=== PATIENT | male | born 1950 | race Caucasian/White ===

== ENCOUNTER 2021-07-04 11:18 | Outpatient (REF) | payer BC, SELFPAY ==
--- NOTE | ~2021-07-04 | US_ITS ---
EXAMINATION: US RETROPERITONEAL LIMITED (RENAL ONLY) CLINICAL INFORMATION: Urinary tract infection. COMPARISON: None TECHNIQUE: Real-time imaging of the kidneys. FINDINGS: RIGHT KIDNEY: 11.0 x 4.5 x 4.6 cm (SAG x AP x TRV). The kidney is normal in size, contour, and echogenicity. Renal cortical thickness is normal. No focal parenchymal lesions or hydronephrosis. There is upper pole 0.5 cm cyst on the lower pole 0.3 cm stone without obstruction LEFT KIDNEY: 11.3 x 5.6 x 5.3 cm (SAG x AP x TRV). The kidney is normal in size, contour, and echogenicity. Renal cortical thickness is normal. No hydronephrosis. There is upper pole 1.7 x 1.8 x 1.6 cm simple cyst and 0.3 cm calculus and 0.4 cm calculus in the interpolar area, 0.3 cm calculus in the lower pole and 0.5 cm in the upper pole US/US renal BI IMPRESSION: Bilateral renal cysts and nephrolithiasis no evidence of hydronephrosis
== END 2021-07-04 11:19 | disposition home or self-care (01) ==
LOC: HO.US 11:18
PROVIDERS: Visit Provider Emergency Medicine
DX: N39.0 Urinary tract infection, site not specified (principal)
CPT/HCPCS: 76775

== ENCOUNTER 2021-07-16 11:53 | Inpatient (IN) | payer MEDICARE, SELFPAY ==
[2021-07-16] VITALS (19 sets, daily range): BP systolic 84–115; BP diastolic 55–80; PULSE 59–93; RESP 16–32; TEMP 36.4–39.2; O2SAT 92–98; BMI 19.8
--- NOTE | ~2021-07-16 | XR_ITS ---
EXAMINATION: XR CHEST CLINICAL INFORMATION: Cough, fever COMPARISON: None TECHNIQUE: Frontal view of the chest was obtained. FINDINGS: Median sternotomy wires are intact. Normal heart size. Mild hypoinflation of the lungs. No focal consolidation. No pleural effusion or pneumothorax. No acute osseous abnormality. Degenerative changes of the bilateral shoulders and the spine. XR/XR chest 1V IMPRESSION: No acute disease within the chest. No focal consolidation.
--- NOTE | 2021-07-16 12:31 | PC.NURSE ---
patient alert to person only history of dementia, bus monitor nsr with frequent pvcs, pt hypotensive, per ems call came in for stroke symptoms, pt neuro exam- symmetrical smile, equil director treasurer upper extremity, lower extremity lift/hold, pt has chronic bean, cath, lungs have rhonchi throughout and diminished.
--- NOTE | 2021-07-16 12:43 | PC.NURSE ---
spoke w son, hx UTI/sepsis in March. provider notified.
--- NOTE | 2021-07-16 12:51 | ED_ITS ---
HPI - General Adult General Chief complaint: Altered Mental Status Stated complaint: FEVER,PRODUCTIVE COUGH Time Seen by Provider: 07/16/21 12:12 Source: patient Mode of arrival: EMS Limitations: other (Cognitive impairment) History of Present Illness HPI narrative: 70-year-old male coming from stay [facility] they will itch, with a past medical history of cognitive impairment, chronic urinary retention with chronic Arroyo catheterization, myasthenia gravis status post thymectomy, COPD, BPH, sepsis with hypoxic respiratory failure, acute kidney injury, and obstructive uropathy presents from [facility] for cough, fever, and not eating. Unclear how long these symptoms have been going on. The patient has a MOLST, and is DNR DNI. Related Data Home Medications Medication Instructions Recorded Confirmed albuterol sulfate 90 mcg/actuation 2 puff INHALATION Q4-6H PRN 07/16/21 07/16/21 aerosol inhaler aspirin 81 mg capsule 81 mg PO DAILY 07/16/21 07/16/21 atorvastatin 10 mg tablet 1 tab PO DAILY 07/16/21 07/16/21 cyanocobalamin (vitamin B-12) 1,000 mcg PO DAILY 07/16/21 07/16/21 1,000 mcg capsule donepezil 10 mg tablet 1 tab PO DAILY 07/16/21 07/16/21 gabapentin 300 mg capsule 1 cap PO BID 07/16/21 07/16/21 guaifenesin 600 mg tablet, 600 mg PO Q6H PRN 07/16/21 07/16/21 extended release 12 hr (Mucinex) melatonin 3 mg tablet 3 mg PO BEDTIME PRN 07/16/21 07/16/21 memantine 5 mg tablet 1 tab PO BID 07/16/21 07/16/21 midodrine 5 mg tablet 1 tab PO TID 07/16/21 07/16/21 multivitamin 1 tab PO DAILY 07/16/21 07/16/21 omeprazole 20 mg capsule,delayed 1 cap PO DAILY 07/16/21 07/16/21 release prednisone 10 mg tablet 1 tab PO DAILY 07/16/21 07/16/21 prednisone 5 mg tablet 1 tab PO DAILY@1700 07/16/21 07/16/21 risperidone 0.5 mg tablet 0.75 mg PO DAILY 07/16/21 07/16/21 (Risperdal) risperidone 1 mg tablet 1 tab PO BEDTIME 07/16/21 07/16/21 sennosides 8.6 mg-docusate sodium 1 tab-cap PO BID PRN 07/16/21 07/16/21 50 mg capsule (Senna Plus) sertraline 100 mg tablet 1 tab PO DAILY 07/16/21 07/16/21 sertraline 50 mg tablet 1 tab PO DAILY 07/16/21 07/16/21 tamsulosin 0.4 mg capsule 1 cap PO DAILY 07/16/21 07/16/21 Allergies Allergy/AdvReac Type Severity Reaction Status Date / Time bacitracin Allergy Unknown Verified 07/16/21 12:22 [From Neosporin ([id number])] iodine Allergy Unknown Verified 07/16/21 12:22 neomycin Allergy Unknown Verified 07/16/21 12:22 [From Neosporin ([id number])] polymyxin B Allergy Unknown Verified 07/16/21 12:22 [From Neosporin ([id number])] Review of Systems Review of Systems: Cough, fever, anorexia. Patient is a poor historian, unable to rule obtain review of systems. Patient does not endorse any pain like Neurologic: Reports confusion Psychiatric: Psychiatric: Reports confusion PMFSH Past Medical History Medical History BPH (benign prostatic hyperplasia) Compression fx, lumbar spine Compression fx, thoracic spine Constipation Dementia Dementia Depression GERD (gastroesophageal reflux disease) High cholesterol Myasthenia gravis Urinary retention Surgical History H/O thymectomy Social History Social History Alcohol intake: never Patient Tobacco Use Status: Never used Tobacco Smoked in Last 30 Days: Yes Use of substances other than those prescribed or required for medical reasons: No Advance Directives: No Advance Directives Information Provided: No Physical Exam ED Vital Signs: Vital Signs - 24 hr 07/16/21 12:12 07/16/21 12:22 07/16/21 12:52 Temperature 102.6 F H 99.9 F Pulse Rate 88 84 77 Pulse Rate [Left Apical] Respiratory Rate 29 H 32 H 28 H Blood Pressure 85/63 L 89/63 L 97/67 Pulse Oximetry 92 97 92 07/16/21 13:22 07/16/21 13:29 07/16/21 13:30 Temperature 99.1 F 99.1 F Pulse Rate 72 72 Pulse Rate [Left Apical] 79 Respiratory Rate 22 H 22 H Blood Pressure 93/66 87/58 L Pulse Oximetry 95 95 07/16/21 13:33 07/16/21 14:00 07/16/21 14:30 Temperature 99.1 F 98.6 F Pulse Rate 72 72 67 Pulse Rate [Left Apical] Respiratory Rate 17 22 H 22 H Blood Pressure 88/61 L 84/58 L Pulse Oximetry 95 95 07/16/21 15:00 07/16/21 15:30 07/16/21 16:36 Temperature 98.6 F 97.5 F 97.7 F Pulse Rate 72 67 62 Pulse Rate [Left Apical] Respiratory Rate 22 H 22 H 23 H Blood Pressure 88/59 L 93/64 97/67 Pulse Oximetry 95 95 95 07/16/21 17:00 07/16/21 17:34 Temperature 97.5 F 97.7 F Pulse Rate 65 59 Pulse Rate [Left Apical] Respiratory Rate 22 H 22 H Blood Pressure 92/64 98/67 Pulse Oximetry 96 97 BMI result Body Mass Index 19.8 Const General: alert, awake, acute distress moderate and respiratory and confusion Nutritional Appearance: cachectic Orientation/consciousness: oriented to person, oriented to place, No oriented to time and confusion HENMT Head: Yes normal to inspection, Yes normocephalic and Yes atraumatic Ears: hearing grossly normal bilaterally General nose exam: Normal external nose present Face and sinus: Yes normal facial exam Mouth: mucous membranes dry Throat: Yes posterior oropharynx normal Eyes Pupils: Equal, round and reactive pupils present EOM: EOMs intact bilaterally Neck Neck: Yes full ROM, Yes no meningeal signs, Yes trachea midline and Yes supple Resp Effort & Inspection: able to speak in complete sentences, Actively coughing, labored, respiratory distress and tachypneic Auscultation: crackles, rales and rhonchi throughout Cardio Rate: regular rate Rhythm: regular rhythm GI Inspection: Yes normal to inspection Palpation (GI): Soft to palpation, nontender, no guarding and not rigid Other: Arroyo in place Penis: normal penis Meatus: meatus normal and No Blood at meatus present Scrotum: scrotum normal Skin General skin exam: no rashes or lesions noted Neuro General: oriented to person, oriented to place, No oriented to time, no meningeal signs and confusion Cranial nerves: Yes Equal, round and reactive pupils present Psych Appearance: disheveled Affect: normal affect Attitude: cooperative Course Course Course Narrative: 70-year-old [facility] patient with past medical history of COPD, sepsis, myasthenia gravis, respiratory failure, acute kidney injury, and obstructive uropathy with chronic Arroyo presents for fever, cough and anorexia today. On exam, patient is hypotensive, 85/63, is tachypneic at 30, rectal temp is 102.6 degrees. Started sepsis bundle, lactic, blood culture, 30 milliliters/kilogram of fluids, started Zosyn and vanco, will get urine, labs, swab for COVID and flu. Giving Tylenol, nebulizer treatment. Second lactate ordered for 1455 Initial lactate is 2.2 VBG is within normal limits Reevaluation(s) Reevaluation #1: Patient's blood pressure is still 80s over 60s, map of [address] Berger looked at IVC with ultrasound, IVC is on. Will give 500 more cc of fluid. Patient did not have JVD on exam. Texted Dr. Lovett, fans clerk, he will come down and consult on patient. Dr Lovett did see patient, he is fluid responsive. BP npw 99/68. Bony felt pt appropriate for the floor Mustapha, son at bedside is HCP. HIs number is [phone] FINDINGS: Median sternotomy wires are intact. Normal heart size. Mild hypoinflation of the lungs. No focal consolidation. No pleural effusion or pneumothorax. No acute osseous abnormality. Degenerative changes of the bilateral shoulders and the spine. XR/XR chest 1V IMPRESSION: No acute disease within the chest. No focal consolidation. Medical Decision Making Lab Data Result diagrams: 07/16/21 12:53 07/16/21 12:53 Labs: Lab Results 07/16/21 07/16/21 07/16/21 Range/Units 12:20 12:20 12:53 WBC 10.6 (4.8-10.8) X10*3/uL RBC 3.87 L (4.60-5.80) X10*6/uL Hgb 12.6 L (14.0-18.0) g/dl Hct 37.6 L (42.0-52.0) % MCV 97.2 (80.0-98.0) fL MCH 32.6 (27.0-33.0) pg MCHC 33.5 (31.0-36.0) g/dl RDW 14.6 (11.0-16.0) % Plt Count 213 (160-400) X10*3/uL MPV 9.8 (9.4-12.4) fL Immature Gran % (Auto) 0.3 (0.0-0.4) % Neut % (Auto) 81.0 H (45-73) % Lymph % (Auto) 9.1 L (20-40) % [place] % (Auto) 9.3 (2-11) % Eos % (Auto) 0.0 (0-4) % Baso % (Auto) 0.3 (0-2) % Lymph # (Auto) 1.0 L (1.2-4.9) X10*3/uL [place] # (Auto) 1.0 (0.1-1.2) X10*3/uL Eos # (Auto) 0.0 (0.0-0.4) X10*3/uL Baso # (Auto) 0.0 (0.0-0.2) X10*3/uL Abs Immat Gran (auto) 0.03 (0.00-0.03) X10*3/uL Absolute Neuts (auto) 8.6 H (2.0-8.3) x10*3/uL Absolute Nucleated RBC 0.000 (0.0-0.012) X10*3/uL Nucleated RBC % (auto) 0.0 (0.0-0.2) /100WBC PT (9.9-13.0) SEC INR (0.9-1.1) APTT (24.1-38.0) SEC VBG pH (7.32-7.43) VBG pCO2 mmHg VBG pO2 mmHg VBG HCO3 (22-26) mmol/L VBG O2 Saturation % VBG Base Excess mmol/L Sodium (135-145) mmol/L Potassium (3.3-5.1) mmol/L Chloride (96-108) mmol/L Carbon Dioxide (22-29) mmol/L Anion Gap (12-20) BUN (9-16) mg/dL Creatinine (0.5-1.4) mg/dL Estim Creat Clear Calc Estimated GFR Random Glucose (60-115) mg/dL Lactic Acid (0.5-2.0) mmol/L Lactic Acid F/U @ 2Hr (0.5-2.0) mmol/L Calcium (8.4-10.2) mg/dL Total Bilirubin (0.0-1.0) mg/dL AST (5-37) U/L ALT (0-40) U/L Alkaline Phosphatase (39-117) U/L Total Protein (6.5-8.0) g/dL Albumin (3.5-5.0) g/dL Urine Color Urine Appearance Urine pH (5.0-8.0) Ur Specific [place] (1.005-1.025) Urine Protein (NEG-TRACE) MG/DL Urine Glucose (UA) (NEG) MG/DL Urine Ketones (NEG) MG/DL Urine Blood (NEG) Urine Nitrite (NEG) Ur Leukocyte Esterase (NEG) Urine RBC (0) /HPF Urine WBC (0-4) /HPF Ur Squamous Epith Cells /LPF Amorphous Sediment /LPF Urine Bacteria /LPF COVID-19 (FRANCY) Negative (Negative) COVID-19 Clin Com See Note Influenza Type A (SAVANA) Negative (Negative) Influenza Type B (SAVANA) Negative (Negative) Influenza A & B Note See Note 07/16/21 07/16/21 07/16/21 Range/Units 12:53 12:53 12:53 WBC (4.8-10.8) X10*3/uL RBC (4.60-5.80) X10*6/uL Hgb (14.0-18.0) g/dl Hct (42.0-52.0) % MCV (80.0-98.0) fL MCH (27.0-33.0) pg MCHC (31.0-36.0) g/dl RDW (11.0-16.0) % Plt Count (160-400) X10*3/uL MPV (9.4-12.4) fL Immature Gran % (Auto) (0.0-0.4) % Neut % (Auto) (45-73) % Lymph % (Auto) (20-40) % [place] % (Auto) (2-11) % Eos % (Auto) (0-4) % Baso % (Auto) (0-2) % Lymph # (Auto) (1.2-4.9) X10*3/uL [place] # (Auto) (0.1-1.2) X10*3/uL Eos # (Auto) (0.0-0.4) X10*3/uL Baso # (Auto) (0.0-0.2) X10*3/uL Abs Immat Gran (auto) (0.00-0.03) X10*3/uL Absolute Neuts (auto) (2.0-8.3) x10*3/uL Absolute Nucleated RBC (0.0-0.012) X10*3/uL Nucleated RBC % (auto) (0.0-0.2) /100WBC PT 14.1 H (9.9-13.0) SEC INR 1.2 H (0.9-1.1) APTT 38.7 H (24.1-38.0) SEC VBG pH (7.32-7.43) VBG pCO2 mmHg VBG pO2 mmHg VBG HCO3 (22-26) mmol/L VBG O2 Saturation % VBG Base Excess mmol/L Sodium 139 (135-145) mmol/L Potassium 3.6 (3.3-5.1) mmol/L Chloride 101 (96-108) mmol/L Carbon Dioxide 25 (22-29) mmol/L Anion Gap 17 (12-20) BUN 20 H (9-16) mg/dL Creatinine 0.97 (0.5-1.4) mg/dL Estim Creat Clear Calc 70.0 Estimated GFR > 60 Random Glucose 120 H (60-115) mg/dL Lactic Acid 2.2 H* (0.5-2.0) mmol/L Lactic Acid F/U @ 2Hr (0.5-2.0) mmol/L Calcium 8.8 (8.4-10.2) mg/dL Total Bilirubin 1.2 H (0.0-1.0) mg/dL AST 13 (5-37) U/L ALT 23 (0-40) U/L Alkaline Phosphatase 56 (39-117) U/L Total Protein 6.0 L (6.5-8.0) g/dL Albumin 3.4 L (3.5-5.0) g/dL Urine Color Urine Appearance Urine pH (5.0-8.0) Ur Specific [place] (1.005-1.025) Urine Protein (NEG-TRACE) MG/DL Urine Glucose (UA) (NEG) MG/DL Urine Ketones (NEG) MG/DL Urine Blood (NEG) Urine Nitrite (NEG) Ur Leukocyte Esterase (NEG) Urine RBC (0) /HPF Urine WBC (0-4) /HPF Ur Squamous Epith Cells /LPF Amorphous Sediment /LPF Urine Bacteria /LPF COVID-19 (FRANCY) (Negative) COVID-19 Clin Com Influenza Type A (SAVANA) (Negative) Influenza Type B (SAVANA) (Negative) Influenza A & B Note 07/16/21 07/16/21 07/16/21 Range/Units 13:27 13:39 15:08 WBC (4.8-10.8) X10*3/uL RBC (4.60-5.80) X10*6/uL Hgb (14.0-18.0) g/dl Hct (42.0-52.0) % MCV (80.0-98.0) fL MCH (27.0-33.0) pg MCHC (31.0-36.0) g/dl RDW (11.0-16.0) % Plt Count (160-400) X10*3/uL MPV (9.4-12.4) fL Immature Gran % (Auto) (0.0-0.4) % Neut % (Auto) (45-73) % Lymph % (Auto) (20-40) % [place] % (Auto) (2-11) % Eos % (Auto) (0-4) % Baso % (Auto) (0-2) % Lymph # (Auto) (1.2-4.9) X10*3/uL [place] # (Auto) (0.1-1.2) X10*3/uL Eos # (Auto) (0.0-0.4) X10*3/uL Baso # (Auto) (0.0-0.2) X10*3/uL Abs Immat Gran (auto) (0.00-0.03) X10*3/uL Absolute Neuts (auto) (2.0-8.3) x10*3/uL Absolute Nucleated RBC (0.0-0.012) X10*3/uL Nucleated RBC % (auto) (0.0-0.2) /100WBC PT (9.9-13.0) SEC INR (0.9-1.1) APTT (24.1-38.0) SEC VBG pH 7.44 H (7.32-7.43) VBG pCO2 32 mmHg VBG pO2 186 mmHg VBG HCO3 22 (22-26) mmol/L VBG O2 Saturation 99.0 % VBG Base Excess -0.8 mmol/L Sodium (135-145) mmol/L Potassium (3.3-5.1) mmol/L Chloride (96-108) mmol/L Carbon Dioxide (22-29) mmol/L Anion Gap (12-20) BUN (9-16) mg/dL Creatinine (0.5-1.4) mg/dL Estim Creat Clear Calc Estimated GFR Random Glucose (60-115) mg/dL Lactic Acid Cancelled (0.5-2.0) mmol/L Lactic Acid F/U @ 2Hr (0.5-2.0) mmol/L Calcium (8.4-10.2) mg/dL Total Bilirubin (0.0-1.0) mg/dL AST (5-37) U/L ALT (0-40) U/L Alkaline Phosphatase (39-117) U/L Total Protein (6.5-8.0) g/dL Albumin (3.5-5.0) g/dL Urine Color YELLOW Urine Appearance HAZY Urine pH 5.5 (5.0-8.0) Ur Specific [place] 1.020 (1.005-1.025) Urine Protein 1+ H (NEG-TRACE) MG/DL Urine Glucose (UA) NEG (NEG) MG/DL Urine Ketones NEG (NEG) MG/DL Urine Blood 2+ H (NEG) Urine Nitrite NEG (NEG) Ur Leukocyte Esterase 3+ H (NEG) Urine RBC 10-14 H (0) /HPF Urine WBC 30-49 H (0-4) /HPF Ur Squamous Epith Cells 1+ /LPF Amorphous Sediment 1+ /LPF Urine Bacteria 1+ /LPF COVID-19 (FRANCY) (Negative) COVID-19 Clin Com Influenza Type A (SAVANA) (Negative) Influenza Type B (SAVANA) (Negative) Influenza A & B Note 07/16/21 Range/Units 15:08 WBC (4.8-10.8) X10*3/uL RBC (4.60-5.80) X10*6/uL Hgb (14.0-18.0) g/dl Hct (42.0-52.0) % MCV (80.0-98.0) fL MCH (27.0-33.0) pg MCHC (31.0-36.0) g/dl RDW (11.0-16.0) % Plt Count (160-400) X10*3/uL MPV (9.4-12.4) fL Immature Gran % (Auto) (0.0-0.4) % Neut % (Auto) (45-73) % Lymph % (Auto) (20-40) % [place] % (Auto) (2-11) % Eos % (Auto) (0-4) % Baso % (Auto) (0-2) % Lymph # (Auto) (1.2-4.9) X10*3/uL [place] # (Auto) (0.1-1.2) X10*3/uL Eos # (Auto) (0.0-0.4) X10*3/uL Baso # (Auto) (0.0-0.2) X10*3/uL Abs Immat Gran (auto) (0.00-0.03) X10*3/uL Absolute Neuts (auto) (2.0-8.3) x10*3/uL Absolute Nucleated RBC (0.0-0.012) X10*3/uL Nucleated RBC % (auto) (0.0-0.2) /100WBC PT (9.9-13.0) SEC INR (0.9-1.1) APTT (24.1-38.0) SEC VBG pH (7.32-7.43) VBG pCO2 mmHg VBG pO2 mmHg VBG HCO3 (22-26) mmol/L VBG O2 Saturation % VBG Base Excess mmol/L Sodium (135-145) mmol/L Potassium (3.3-5.1) mmol/L Chloride (96-108) mmol/L Carbon Dioxide (22-29) mmol/L Anion Gap (12-20) BUN (9-16) mg/dL Creatinine (0.5-1.4) mg/dL Estim Creat Clear Calc Estimated GFR Random Glucose (60-115) mg/dL Lactic Acid (0.5-2.0) mmol/L Lactic Acid F/U @ 2Hr 0.9 (0.5-2.0) mmol/L Calcium (8.4-10.2) mg/dL Total Bilirubin (0.0-1.0) mg/dL AST (5-37) U/L ALT (0-40) U/L Alkaline Phosphatase (39-117) U/L Total Protein (6.5-8.0) g/dL Albumin (3.5-5.0) g/dL Urine Color Urine Appearance Urine pH (5.0-8.0) Ur Specific [place] (1.005-1.025) Urine Protein (NEG-TRACE) MG/DL Urine Glucose (UA) (NEG) MG/DL Urine Ketones (NEG) MG/DL Urine Blood (NEG) Urine Nitrite (NEG) Ur Leukocyte Esterase (NEG) Urine RBC (0) /HPF Urine WBC (0-4) /HPF Ur Squamous Epith Cells /LPF Amorphous Sediment /LPF Urine Bacteria /LPF COVID-19 (FRANCY) (Negative) COVID-19 Clin Com Influenza Type A (SAVANA) (Negative) Influenza Type B (SAVANA) (Negative) Influenza A & B Note Discharge Plan Discharge Clinical Impression: Sepsis, Acute UTI Patient Disposition: Admitted As Inpatient
[2021-07-16 12:54] LABS: COVID-19 Test Negative (Negative)
[2021-07-16 12:57] LABS: MANUAL DIFF FLAG NO
[2021-07-16 12:57] LABS: IDNOW Serial# 08D9AD1C; Influenza A Negative (Negative); Influenza B2 Negative (Negative)
[2021-07-16 12:58] LABS: Basophils Percent Auto 0.3 % (0-2); Hematocrit 37.6 % (42.0-52.0); Hemoglobin 12.6 g/dl (14.0-18.0); Imm Gran Abs Auto 0.03 X10*3/uL (0.00-0.03); Imm Gran Pct Auto 0.3 % (0.0-0.4); Lymphocytes Percent Auto 9.1 % (20-40); Mean Corpuscular HGB Conc 33.5 g/dl (31.0-36.0); Mean Corpuscular Hemoglobin 32.6 pg (27.0-33.0); Mean Corpuscular Volume 97.2 fL (80.0-98.0); Mean Platelet Volume 9.8 fL (9.4-12.4); Monocytes Percent Auto 9.3 % (2-11); Neutrophils Absolute Auto 8.6 x10*3/uL (2.0-8.3); Platelet Count 213 X10*3/uL (160-400); Red Blood Count 3.87 X10*6/uL (4.60-5.80); Red Cell Distribution Width 14.6 % (11.0-16.0); White Blood Count 10.6 X10*3/uL (4.8-10.8)
[2021-07-16] MEDS: SODIUM CHLORIDE 2097 ML IV (12:59)
[2021-07-16 13:04] LABS: INTERNATIONAL NORM RATIO 1.2 (0.9-1.1); Prothrombin Time 14.1 SEC (9.9-13.0)
[2021-07-16 13:06] LABS: Partial Thromboplastin Time 38.7 SEC (24.1-38.0)
[2021-07-16] MEDS: Acetaminophen 325 MG TABLET 975 MG PO (13:11)
[2021-07-16] MEDS: Piperacillin Sodium/Tazobactam 4.5 GM in 0.9 % Sodium Chloride 100 ML IV (13:11)
[2021-07-16 13:23] LABS: Alanine Aminotransferase 23 U/L (0-40); Albumin Level 3.4 g/dL (3.5-5.0); Alkaline Phosphatase 56 U/L (39-117); Anion Gap 17 (12-20); Aspartate Amino Transferase 13 U/L (5-37); Bilirubin Total 1.2 mg/dL (0.0-1.0); Blood Urea Nitrogen 20 mg/dL (9-16); Calcium 8.8 mg/dL (8.4-10.2); Carbon Dioxide 25 mmol/L (22-29); Chloride 101 mmol/L (96-108); Estimated Glomerular Filt Rate > 60; Glucose Random 120 mg/dL (60-115); Potassium 3.6 mmol/L (3.3-5.1); Sodium 139 mmol/L (135-145)
[2021-07-16] MEDS: Albuterol/Iprat 2.5/0.5MG 3 ML AMPUL.NEB INHALE (13:30)
--- NOTE | 2021-07-16 13:34 | PC.NURSE ---
patients bean cath was changed provider aware, will obtain urine when we are able to get sample
--- NOTE | 2021-07-16 13:35 | PC.NURSE ---
laci phone number [phone]
[2021-07-16 13:49] LABS: Lactic Acid 2.2 mmol/L (0.5-2.0)
[2021-07-16 13:57] LABS: Venous Blood Gas Refer to POC result
[2021-07-16 13:57] LABS: VBG Base Excess -0.8 mmol/L; VBG HCO3 22 mmol/L (22-26); VBG pCO2 32 mmHg; VBG pH 7.44 (7.32-7.43); VBG pO2 186 mmHg
[2021-07-16] MEDS: vancomycin HCL 1,000 MG in 0.9 % Sodium Chloride 250 ML 270 MG IV (14:10)
--- NOTE | 2021-07-16 14:13 | PC.NURSE ---
patient awake/alert to baseline per son at bedside, cardiac cath lab manager nsr 60s, pt hypotensive, bean cath patient/draining, 3l nc, will continue to monitor.
[2021-07-16 14:16] LABS: Appearance Urine HAZY; Color Urine YELLOW; Glucose Urine UA NEG (NEG); Leukocyte Esterase Urine 3+ (NEG); Nitrite Urine NEG (NEG); PH 5.5 (5.0-8.0); UACC Culture Trigger YES; Urine Blood 2+ (NEG); Urine Ketones NEG (NEG); Urine Protein 1+ MG/DL (NEG-TRACE)
--- NOTE | 2021-07-16 14:17 | PC.NURSE ---
ivf continue to run slowly
[2021-07-16 14:24] LABS: WBC Urine 30-49 /HPF (0-4)
[2021-07-16 14:25] LABS: Squamous Epithelial Cell Urine 1+ /LPF
[2021-07-16 14:26] LABS: Bacteria Urine 1+ /LPF
[2021-07-16 14:27] LABS: Amorphous Sediment Urine 1+ /LPF
--- NOTE | 2021-07-16 14:49 | PC.NURSE ---
dr kendrick icu provider is at bedside performing an ultrasound, will hang fluids when able
[2021-07-16 14:55] LABS: Reflex Lactate? Lactic Acid Added
[2021-07-16] MEDS: 0.9 % Sodium Chloride 500 ML IV ×2 (15:07→15:13)
--- NOTE | 2021-07-16 15:09 | PC.NURSE ---
additional ivf bolus hung per order, monitoring tech sinus jo 60s, pt continues to by hypotensive, family at bedside, call daniel within reach, labs drawn, will continue to monitor
--- NOTE | 2021-07-16 15:23 | W.PM.CCCN ---
History of Present Illness Data of Consult Service Date: 07/16/21 Requesting physician: Sonia Del Rio Primary Care Provider: MARCELA SALGADO I was aked by OUMOU Del Rio to see Mr. Rizzo because of urosepsis w hypotension. The patient is a 70 yo M with PMHx of advanced dementia (probably Alzheimer?s, with severe memory deficit), myasthenia gravis x 40 years that he had a thymectomy for, COPD, BPH.? This past October he fell and broke his back in 2 places.? Since then he has walked very little, and has had an indwelling Arroyo. ?He mainly sits and watches TV all day.? This past March he had an episode of sepsis at [facility] that he almost from.? A renal US done here on 07/04 as part of his w/u for urinary retention showed bilateral renal cysts and bilat nephrolithiasis w no evidence of hydronephrosis. The patient has been a resident of [facility] for some months.? I spoke with the patient?s son Mustapha at length.? The patient has a MOLST form indicating DNR/DNI status, which the patient?s son confirmed. ?The patient has been for many years. ?He has two children, Mustapha, who lives in [place], and a daughter who lives in [place]. The patient was BIBA to the ED at noon today because of altered mental status, fever, and not eating.? In the ED, the patient was reportedly alert, awake, reportedly with moderate respiratory distress and confusion.? He appeared cachectic.? He was oriented x2.? Heart rate was 88, blood pressure 85/63, respiratory rate high 20s, sat 92% on room air.? Temperature was 102.6 degrees.? He was actively coughing with crackles rales and rhonchi throughout.? Labs in the ED were notable for a white count of 10, hemoglobin 12, PT 14/1.2, BUN/creatinine 20/0.9, bicarb 25, total bili 1.2, normal transaminases, albumin 3.4, and lactic acid 2.2.? Venous blood gas showed 7.44/32/0.? Chest x-ray showed prominent interstitial markings, otherwise unremarkable. Urinalysis showed 30-49 wbc's, with 3+ leukocyte esterase and 1+ urine bacteria. Blood cultures were drawn, and the patient was given 30 cc/kg normal saline and Zosyn and vancomycin. I saw the patient at about 1430.? On my exam, he is lethargic, but easily arousable.? Breathing easy with clear airway and no WOB.? RR high teens, Sat 95% on 3L NC.? HR 70, SR, BP 88/59.? No JVD, looks dry, no edema.? Chest CTA on the left, few coarse crackles on the right base, normal exp phase. Abd benign.? The patient is now making good clear yellow urine. My bedside ECHO:? Normal LV wall thickness; normal LV size and function.? Normal RV size:? No significant valvular Doppler abnormalities.? Unable to Doppler the tricuspid valve.? IVC measured 1.8-1.9 cm, with at least 50% inspiratory collapse (after his 30 cc/kg fluid bolus). IMPRESSION: 1. Underlying dementia. 2. Underlying MG. 3. Significant underlying deconditioning and disability. 4. Hypotension. 2? sepsis and hypovolemia. 5. Sepsis, most likely urosepsis.? Agree with vanco and Zosyn, pending cultures. 6. Hypovolemia.? He?s likely still fluid responsive, based on the echo. 7. ÓSCAR.? 2? above. 8. Elevated lactate.? Sepsis and/or hypovolemia.? Continue fluid resusc.? Recheck lactate. The patient is breathing easy now, mental status is baseline, and he?s making urine.? Suggest another liter of LR, then admit to Medicine.? No need for intensive care at this time.? Please call if the patient?s condition deteriorates. I spoke to the patient?s son at length.? He is inclined to be very noninvasive/noninterventional. [facility] Past Medical History Medical History BPH (benign prostatic hyperplasia) Compression fx, lumbar spine Compression fx, thoracic spine Constipation Dementia Dementia Depression GERD (gastroesophageal reflux disease) High cholesterol Myasthenia gravis Urinary retention Surgical History Surgical History H/O thymectomy Social History Social History Alcohol intake: never Patient Tobacco Use Status: Never used Tobacco Smoked in Last 30 Days: Yes Use of substances other than those prescribed or required for medical reasons: No Advance Directives: No Advance Directives Information Provided: No Meds Allergies Allergy/AdvReac Type Severity Reaction Status Date / Time bacitracin Allergy Unknown Verified 07/16/21 12:22 [From Neosporin ([id number])] iodine Allergy Unknown Verified 07/16/21 12:22 neomycin Allergy Unknown Verified 07/16/21 12:22 [From Neosporin ([id number])] polymyxin B Allergy Unknown Verified 07/16/21 12:22 [From Neosporin ([id number])] Active Medications: Current Medications Sodium Chloride (Ns) 500 mls @ 500 mls/hr IV .Q1H UBTCH Stop: 07/16/21 15:29 Last Admin: 07/16/21 15:07 Dose: 500 mls/hr Documented by: Sodium Chloride (Ns) 500 mls @ 500 mls/hr IV .Q1H BUTCH Stop: 07/16/21 16:14 Last Admin: 07/16/21 15:13 Dose: 500 mls/hr Documented by: Pharmacy Consult (Consult Rx Perform Med Rec) 1 each MISCELLANE ONCE PRN PRN Reason: Consult order Home Medications Medication Instructions Recorded Confirmed Last Taken Type albuterol sulfate 90 mcg/actuation 2 puff INHALATION Q4-6H PRN 07/16/21 07/16/21 Unknown History aerosol inhaler aspirin 81 mg capsule 81 mg PO DAILY 07/16/21 07/16/21 Unknown History atorvastatin 10 mg tablet 1 tab PO DAILY 07/16/21 07/16/21 Unknown History cyanocobalamin (vitamin B-12) 1,000 mcg PO DAILY 07/16/21 07/16/21 Unknown History 1,000 mcg capsule donepezil 10 mg tablet 1 tab PO DAILY 07/16/21 07/16/21 Unknown History gabapentin 300 mg capsule 1 cap PO BID 07/16/21 07/16/21 Unknown History guaifenesin 600 mg tablet, 600 mg PO Q6H PRN 07/16/21 07/16/21 Unknown History extended release 12 hr (Mucinex) melatonin 3 mg tablet 3 mg PO BEDTIME PRN 07/16/21 07/16/21 Unknown History memantine 5 mg tablet 1 tab PO BID 07/16/21 07/16/21 Unknown History midodrine 5 mg tablet 1 tab PO TID 07/16/21 07/16/21 Unknown History multivitamin 1 tab PO DAILY 07/16/21 07/16/21 Unknown History omeprazole 20 mg capsule,delayed 1 cap PO DAILY 07/16/21 07/16/21 Unknown History release prednisone 10 mg tablet 1 tab PO DAILY 07/16/21 07/16/21 Unknown History prednisone 5 mg tablet 1 tab PO DAILY@1700 07/16/21 07/16/21 Unknown History risperidone 0.5 mg tablet 0.75 mg PO DAILY 07/16/21 07/16/21 Unknown History (Risperdal) risperidone 1 mg tablet 1 tab PO BEDTIME 07/16/21 07/16/21 Unknown History sennosides 8.6 mg-docusate sodium 1 tab-cap PO BID PRN 07/16/21 07/16/21 Unknown History 50 mg capsule (Senna Plus) sertraline 100 mg tablet 1 tab PO DAILY 07/16/21 07/16/21 Unknown History sertraline 50 mg tablet 1 tab PO DAILY 07/16/21 07/16/21 Unknown History tamsulosin 0.4 mg capsule 1 cap PO DAILY 07/16/21 07/16/21 Unknown History Physical Exam Vital Signs: Vital Signs: Last Vital Signs Temp 98.6 F 07/16/21 15:00 Pulse 72 07/16/21 15:00 Resp 22 H 07/16/21 15:00 BP 88/59 L 07/16/21 15:00 Pulse Ox 95 07/16/21 15:00 BMI result Body Mass Index 19.8 Results Labs CBC & Chem 7: 07/16/21 12:53 07/16/21 12:53 Labs: Short CBC 07/16/21 Range/Units 12:53 WBC 10.6 (4.8-10.8) X10*3/uL Hgb 12.6 L (14.0-18.0) g/dl Hct 37.6 L (42.0-52.0) % Plt Count 213 (160-400) X10*3/uL BMP 07/16/21 12:53 Sodium 139 Potassium 3.6 Chloride 101 Carbon Dioxide 25 BUN 20 H Creatinine 0.97 Calcium 8.8 Liver Function 07/16/21 Range/Units 12:53 Total Bilirubin 1.2 H (0.0-1.0) mg/dL AST 13 (5-37) U/L ALT 23 (0-40) U/L Alkaline Phosphatase 56 (39-117) U/L Albumin 3.4 L (3.5-5.0) g/dL Urine 07/16/21 Range/Units 13:27 Urine Color YELLOW Urine Appearance HAZY Urine pH 5.5 (5.0-8.0) Ur Specific [place] 1.020 (1.005-1.025) Urine Protein 1+ H (NEG-TRACE) MG/DL Urine Glucose (UA) NEG (NEG) MG/DL
[2021-07-16 15:31] LABS: ~Lactic Acid-LAB USE ONLY 0.9 mmol/L (0.5-2.0)
--- NOTE | 2021-07-16 16:00 | PHA.MEDREC ---
Pharmacy Consult ? Medication Reconciliation Pharmacy has completed the medication reconciliation.
--- NOTE | 2021-07-16 16:53 | PM.IMHP ---
History of Present Illness Date of Service: 07/16/21 Chief Complaint: Encephalopathy, weakness a 70 years old male with PMH of dementia, Myasthenia gravis post thymectomy, COPD, BPH among others who presented to the hospital from a son of for encephalopathy. The patient was brought by EMS as the facility staff reported altered mentation, fever and decreased oral intake. The patient cannot help much with the history as he has advanced dementia and does not know how did he end up in the hospital. In the emergency he was noted to have low blood pressure of 80s over 50s along with fever and evidence of urine infection. Intensive care provider was consulted for evaluation but the patient responded to IV fluid with fair response and decision was made to admit to the medical floor. Urinalysis showed 30-49 wbc's, with 3+ leukocyte esterase and 1+ urine bacteria. He will be admitted for further evaluation treatment. Review of Systems Review of Systems: Reports feeling weakness No chest pain, palpitation No shortness of breath or coughing No abdominal pain, nausea or vomiting denies urinary symptoms denies rash or wounds PMFSH Medical History BPH (benign prostatic hyperplasia) Compression fx, lumbar spine Compression fx, thoracic spine Constipation Dementia Dementia Depression GERD (gastroesophageal reflux disease) High cholesterol Myasthenia gravis Urinary retention Surgical History H/O thymectomy Social History Alcohol intake: never Patient Tobacco Use Status: Never used Tobacco Smoked in Last 30 Days: Yes Use of substances other than those prescribed or required for medical reasons: No Advance Directives: No Advance Directives Information Provided: No Meds Allergies Allergy/AdvReac Type Severity Reaction Status Date / Time bacitracin Allergy Unknown Verified 07/16/21 12:22 [From Neosporin ([id number])] iodine Allergy Unknown Verified 07/16/21 12:22 neomycin Allergy Unknown Verified 07/16/21 12:22 [From Neosporin ([id number])] polymyxin B Allergy Unknown Verified 07/16/21 12:22 [From Neosporin ([id number])] Active Medications: Current Medications Pharmacy Consult (Consult Rx Perform Med Rec) 1 each MISCELLANE ONCE PRN PRN Reason: Consult order Pharmacy Consult (Consult Rx Perform Med Rec) 1 each MISCELLANE ONCE PRN PRN Reason: Consult order Home Medications Medication Instructions Recorded Confirmed Last Taken Type albuterol sulfate 90 mcg/actuation 2 puff INHALATION Q4-6H PRN 07/16/21 07/16/21 Unknown History aerosol inhaler aspirin 81 mg capsule 81 mg PO DAILY 07/16/21 07/16/21 Unknown History atorvastatin 10 mg tablet 1 tab PO DAILY 07/16/21 07/16/21 Unknown History cyanocobalamin (vitamin B-12) 1,000 mcg PO DAILY 07/16/21 07/16/21 Unknown History 1,000 mcg capsule donepezil 10 mg tablet 1 tab PO DAILY 07/16/21 07/16/21 Unknown History gabapentin 300 mg capsule 1 cap PO BID 07/16/21 07/16/21 Unknown History guaifenesin 600 mg tablet, 600 mg PO Q6H PRN 07/16/21 07/16/21 Unknown History extended release 12 hr (Mucinex) melatonin 3 mg tablet 3 mg PO BEDTIME PRN 07/16/21 07/16/21 Unknown History memantine 5 mg tablet 1 tab PO BID 07/16/21 07/16/21 Unknown History midodrine 5 mg tablet 1 tab PO TID 07/16/21 07/16/21 Unknown History multivitamin 1 tab PO DAILY 07/16/21 07/16/21 Unknown History omeprazole 20 mg capsule,delayed 1 cap PO DAILY 07/16/21 07/16/21 Unknown History release prednisone 10 mg tablet 1 tab PO DAILY 07/16/21 07/16/21 Unknown History prednisone 5 mg tablet 1 tab PO DAILY@1700 07/16/21 07/16/21 Unknown History risperidone 0.5 mg tablet 0.75 mg PO DAILY 07/16/21 07/16/21 Unknown History (Risperdal) risperidone 1 mg tablet 1 tab PO BEDTIME 07/16/21 07/16/21 Unknown History sennosides 8.6 mg-docusate sodium 1 tab-cap PO BID PRN 07/16/21 07/16/21 Unknown History 50 mg capsule (Senna Plus) sertraline 100 mg tablet 1 tab PO DAILY 07/16/21 07/16/21 Unknown History sertraline 50 mg tablet 1 tab PO DAILY 07/16/21 07/16/21 Unknown History tamsulosin 0.4 mg capsule 1 cap PO DAILY 07/16/21 07/16/21 Unknown History Physical Exam Vital Signs and Narrative: Vital Signs: Last Vital Signs Temp 97.7 F 07/16/21 16:36 Pulse 62 07/16/21 16:36 Resp 23 H 07/16/21 16:36 BP 97/67 07/16/21 16:36 Pulse Ox 95 07/16/21 16:36 BMI result Body Mass Index 19.8 Const: Other: Constitutional : Alert, interactive, looks weak and deconditioned Neck : Normal inspection, Supple Cardiovascular : RRR, no JVP, no lower extremity edema Respiratory : fair bilateral air entry, basal right fine crackles, wheezes or rhonchi Gastrointestinal: soft, lax, Normal bowel sounds, Non tender Skin : Warm, Dry, Arroyo catheter in place Neurological : Alert & disoriented, No focal deficit , CN 2-12 within normal Results Labs CBC and Chem 7: 07/16/21 12:53 07/16/21 12:53 Labs: Laboratory Results - last 24 hr 07/16/21 07/16/21 07/16/21 12:20 12:20 12:53 MCV 97.2 MCH 32.6 MCHC 33.5 RDW 14.6 Plt Count 213 MPV 9.8 Immature Gran % (Auto) 0.3 Neut % (Auto) 81.0 H Lymph % (Auto) 9.1 L Motley % (Auto) 9.3 Eos % (Auto) 0.0 Baso % (Auto) 0.3 Lymph # (Auto) 1.0 L [place] # (Auto) 1.0 Eos # (Auto) 0.0 Baso # (Auto) 0.0 Abs Immat Gran (auto) 0.03 Absolute Neuts (auto) 8.6 H Absolute Nucleated RBC 0.000 Nucleated RBC % (auto) 0.0 PT INR APTT VBG pH VBG pCO2 VBG pO2 VBG HCO3 VBG O2 Saturation VBG Base Excess Anion Gap Estim Creat Clear Calc Estimated GFR Random Glucose Lactic Acid Lactic Acid F/U @ 2Hr Calcium Total Bilirubin AST ALT Alkaline Phosphatase Total Protein Albumin Urine Color Urine Appearance Urine pH Ur Specific [place] Urine Protein Urine Glucose (UA) Urine Ketones Urine Blood Urine Nitrite Ur Leukocyte Esterase Urine RBC Urine WBC Ur Squamous Epith Cells Amorphous Sediment Urine Bacteria COVID-19 (FRANCY) Negative COVID-19 Clin Com See Note Influenza Type A (SAVANA) Negative Influenza Type B (SAVANA) Negative Influenza A & B Note See Note 07/16/21 07/16/21 07/16/21 12:53 12:53 12:53 MCV MCH MCHC RDW Plt Count MPV Immature Gran % (Auto) Neut % (Auto) Lymph % (Auto) Motley % (Auto) Eos % (Auto) Baso % (Auto) Lymph # (Auto) Motley # (Auto) Eos # (Auto) Baso # (Auto) Abs Immat Gran (auto) Absolute Neuts (auto) Absolute Nucleated RBC Nucleated RBC % (auto) PT 14.1 H INR 1.2 H APTT 38.7 H VBG pH VBG pCO2 VBG pO2 VBG HCO3 VBG O2 Saturation VBG Base Excess Anion Gap 17 Estim Creat Clear Calc 70.0 Estimated GFR > 60 Random Glucose 120 H Lactic Acid 2.2 H* Lactic Acid F/U @ 2Hr Calcium 8.8 Total Bilirubin 1.2 H AST 13 ALT 23 Alkaline Phosphatase 56 Total Protein 6.0 L Albumin 3.4 L Urine Color Urine Appearance Urine pH Ur Specific [place] Urine Protein Urine Glucose (UA) Urine Ketones Urine Blood Urine Nitrite Ur Leukocyte Esterase Urine RBC Urine WBC Ur Squamous Epith Cells Amorphous Sediment Urine Bacteria COVID-19 (FRANCY) COVID-19 Clin Com Influenza Type A (SAVANA) Influenza Type B (SAVANA) Influenza A & B Note 07/16/21 07/16/21 07/16/21 13:27 13:39 15:08 MCV MCH MCHC RDW Plt Count MPV Immature Gran % (Auto) Neut % (Auto) Lymph % (Auto) Motley % (Auto) Eos % (Auto) Baso % (Auto) Lymph # (Auto) Motley # (Auto) Eos # (Auto) Baso # (Auto) Abs Immat Gran (auto) Absolute Neuts (auto) Absolute Nucleated RBC Nucleated RBC % (auto) PT INR APTT VBG pH 7.44 H VBG pCO2 32 VBG pO2 186 VBG HCO3 22 VBG O2 Saturation 99.0 VBG Base Excess -0.8 Anion Gap Estim Creat Clear Calc Estimated GFR Random Glucose Lactic Acid Cancelled Lactic Acid F/U @ 2Hr Calcium Total Bilirubin AST ALT Alkaline Phosphatase Total Protein Albumin Urine Color YELLOW Urine Appearance HAZY Urine pH 5.5 Ur Specific [place] 1.020 Urine Protein 1+ H Urine Glucose (UA) NEG Urine Ketones NEG Urine Blood 2+ H Urine Nitrite NEG Ur Leukocyte Esterase 3+ H Urine RBC 10-14 H Urine WBC 30-49 H Ur Squamous Epith Cells 1+ Amorphous Sediment 1+ Urine Bacteria 1+ COVID-19 (FRACNY) COVID-19 Clin Com Influenza Type A (SAVANA) Influenza Type B (SAVANA) Influenza A & B Note 07/16/21 15:08 MCV MCH MCHC RDW Plt Count MPV Immature Gran % (Auto) Neut % (Auto) Lymph % (Auto) [place] % (Auto) Eos % (Auto) Baso % (Auto) Lymph # (Auto) Motley # (Auto) Eos # (Auto) Baso # (Auto) Abs Immat Gran (auto) Absolute Neuts (auto) Absolute Nucleated RBC Nucleated RBC % (auto) PT INR APTT VBG pH VBG pCO2 VBG pO2 VBG HCO3 VBG O2 Saturation VBG Base Excess Anion Gap Estim Creat Clear Calc Estimated GFR Random Glucose Lactic Acid Lactic Acid F/U @ 2Hr 0.9 Calcium Total Bilirubin AST ALT Alkaline Phosphatase Total Protein Albumin Urine Color Urine Appearance Urine pH Ur Specific [place] Urine Protein Urine Glucose (UA) Urine Ketones Urine Blood Urine Nitrite Ur Leukocyte Esterase Urine RBC Urine WBC Ur Squamous Epith Cells Amorphous Sediment Urine Bacteria COVID-19 (FRANCY) COVID-19 Clin Com Influenza Type A (SAVANA) Influenza Type B (SAVANA) Influenza A & B Note Imaging Radiologist's Impressions: Impressions Chest X-Ray 07/16/21 13:47 IMPRESSION: No acute disease within the chest. No focal consolidation. Assessment and Plan (1) Sepsis: Status: Acute (2) Acute UTI: Status: Acute (3) Hypotension: Status: Acute (4) Lactic acidosis: Status: Acute Plan a 70 years old male with PMH of dementia, Myasthenia gravis post thymectomy, COPD, BPH among others who presented to the hospital from a son of for encephalopathy. sepsis Secondary to UTI lactic acidosis, hypotension Start IV antibiotic Pending blood cultures Hypotension Likely secondary to infection, not severe sepsis Responded to IV fluids Continue gentle hydration and monitor blood pressure restart home midodrine metabolic encephalopathy Secondary to infection, advanced dementia Should improve with treatment of infection and recurrent reorientation Acute kidney injury Secondary to sepsis and hypovolemia To give IV fluid Monitor intake and output Follow BMP Resume rest of home medications DVT PPX Hep the patient will need to overnight hospital stay for treatment of sepsis pending blood cultures given high risk of decompensation to severe sepsis. Quality Stroke Does the patient have a stroke diagnosis?: No VTE Prior VTE?: No VTE Risk Level:: Medical - moderate - high VTE Device Contraindication: Treatment Not Indicated VTE Drug Contraindication: N/A - Med Ordered
--- NOTE | 2021-07-16 17:06 | PC.NURSE ---
patient currently sleeping, registered nurse cardiac sinus jo, pt hypotensive, bean cath patient/draining, call daniel within reach, will continue to monitor.
[2021-07-16] MEDS: Lactated Ringers 1,000 ML 80 ML IVCONT (18:36)
[2021-07-16] MEDS: Heparin Sodium,Porcine 5,000 UNIT/ML VIAL 5000 UNIT SUBCUT (18:46)
[2021-07-16] MEDS: Midodrine HCl 10 MG TABLET PO (18:46)
[2021-07-16] MEDS: Piperacillin Sodium/Tazobactam 3.375 GM in 0.9 % Sodium Chloride 50 ML IV (19:06)
--- NOTE | 2021-07-16 19:31 | PC.NURSE ---
son called Son Mustapha was called with update about his father as to what floor he will be admitted to eventually and a update as to how he is doing.
[2021-07-16] MEDS: Gabapentin 100 MG CAPSULE PO (20:36)
[2021-07-16] MEDS: Midodrine HCl 5 MG TABLET PO (20:36)
[2021-07-16] MEDS: Memantine HCl 5 MG TABLET PO (20:37)
[2021-07-16] MEDS: risperiDONE 1 MG TABLET PO (20:37)
--- NOTE | 2021-07-16 20:39 | PC.NURSE ---
patient a&ox2, traffic monitor specialist nsr 70s, pt bp continues to be soft, ivf running per order, pt medicated with nightly meds per order, bean cath patient/draining- pt has a chronic cath which was changed earlier today here in this facility, pt currently watching tv, call daniel within reach, will continue to monitor.
[2021-07-17] VITALS (14 sets, daily range): BP systolic 96–146; BP diastolic 67–84; PULSE 54–102; RESP 14–40; TEMP 36.2–40; O2SAT 94–100; BMI 19.8
[2021-07-17] MEDS: Acetaminophen 325 MG TABLET 650 MG PO ×2 (00:26→01:42)
[2021-07-17] MEDS: 0.9 % Sodium Chloride Flush 3 ML SYRINGE IVFLUSH ×2 (01:46→21:17)
[2021-07-17] MEDS: Piperacillin Sodium/Tazobactam 3.375 GM in 0.9 % Sodium Chloride 50 ML IV ×4 (01:55→18:52)
--- NOTE | 2021-07-17 01:59 | PC.NURSE ---
Dr. Jay was notified that pt's temperature continues to be elevated. She ordered BC x 2 and lactic acid lab and ordered more tylenol for pt. Will continue to monitor pt and advise hospitalist as needed.
[2021-07-17 02:13] LABS: Lactic Acid 2.5 mmol/L (0.5-2.0)
[2021-07-17] MEDS: Heparin Sodium,Porcine 5,000 UNIT/ML VIAL 5000 UNIT SUBCUT ×3 (02:18→16:37)
[2021-07-17] MEDS: Ibuprofen 600 MG TABLET PO (02:37)
--- NOTE | 2021-07-17 03:14 | PC.NURSE ---
Pt placed on cooling blanket, will continue to monitor
[2021-07-17 03:58] LABS: Reflex Lactate? Lactic Acid Added
[2021-07-17 04:24] LABS: Hematocrit 35.2 % (42.0-52.0); Hemoglobin 11.5 g/dl (14.0-18.0); Mean Corpuscular HGB Conc 32.7 g/dl (31.0-36.0); Mean Corpuscular Hemoglobin 31.8 pg (27.0-33.0); Mean Corpuscular Volume 97.2 fL (80.0-98.0); Mean Platelet Volume 9.7 fL (9.4-12.4); Platelet Count 189 X10*3/uL (160-400); Red Blood Count 3.62 X10*6/uL (4.60-5.80); Red Cell Distribution Width 14.7 % (11.0-16.0); White Blood Count 10.4 X10*3/uL (4.8-10.8)
[2021-07-17 04:37] LABS: ~Lactic Acid-LAB USE ONLY 1.6 mmol/L (0.5-2.0)
[2021-07-17 04:48] LABS: Anion Gap 11 (12-20); Blood Urea Nitrogen 18 mg/dL (9-16); Calcium 8.2 mg/dL (8.4-10.2); Carbon Dioxide 25 mmol/L (22-29); Chloride 107 mmol/L (96-108); Creatinine Clr Calc Pharmacy 90.6; Estimated Glomerular Filt Rate > 60; Glucose Random 92 mg/dL (60-115); Potassium 3.5 mmol/L (3.3-5.1); Sodium 139 mmol/L (135-145)
--- NOTE | 2021-07-17 05:17 | PC.NURSE ---
Pt's left forearm 18 ga IV infiltrated. IV was removed and warm compress applied
[2021-07-17] MEDS: Lactated Ringers 1,000 ML 80 ML IVCONT (05:54)
[2021-07-17] MEDS: Omeprazole 20 MG CAPSULE.DR PO (06:05)
--- NOTE | 2021-07-17 07:02 | PM.EVENT ---
Event Note Date of Service: 07/17/21 Event Note: pt developed significant fever overnight, sepsis work up initiated, pt already has full coverage with abx . coolinjg blanket used to cool pt fever of up to 104
[2021-07-17 07:29] LABS: Lactic Acid 1.3 mmol/L (0.5-2.0)
[2021-07-17] MEDS: Sertraline HCL 50 MG TABLET PO (07:48)
[2021-07-17] MEDS: risperiDONE 0.25 MG TABLET 0.75 MG PO (07:48)
[2021-07-17] MEDS: Midodrine HCl 5 MG TABLET PO ×3 (07:48→21:17)
[2021-07-17] MEDS: Multivitamin TABLET 1 TAB PO (07:49)
[2021-07-17] MEDS: Aspirin Enteric Coated 81 MG TABLET.DR PO (07:49)
[2021-07-17] MEDS: Atorvastatin Calcium 10 MG TABLET PO (07:49)
[2021-07-17] MEDS: predniSONE 10 MG TABLET PO (07:49)
[2021-07-17] MEDS: Tamsulosin HCL 0.4 MG CAPSULE PO (07:50)
[2021-07-17] MEDS: Gabapentin 100 MG CAPSULE PO ×2 (07:50→21:17)
[2021-07-17] MEDS: Sertraline HCL 100 MG TABLET PO (07:50)
[2021-07-17] MEDS: Cyanocobalamin (Vitamin B-12) 1,000 MCG TABLET 1000 MCG PO (07:50)
[2021-07-17] MEDS: Memantine HCl 5 MG TABLET PO ×2 (07:58→21:17)
[2021-07-17] MEDS: Donepezil HCl 10 MG TABLET PO (07:58)
--- NOTE | 2021-07-17 15:02 | P.PNIM_ITS ---
Subjective Subjective Date of Service: 07/17/21 Interval History: seen and evaluated Feeling comfortable, denies any pain Had fever overnight which broke by the morning No reported other overnight events Review of Systems Reports feeling weakness No chest pain, palpitation No shortness of breath or coughing No abdominal pain, nausea or vomiting denies urinary symptoms denies rash or wounds Physical Exam Vital Signs: Vital Signs: Last Vital Signs Temp 98.1 F 07/17/21 08:01 Pulse 65 07/17/21 08:01 Resp 22 H 07/17/21 08:01 BP 104/71 07/17/21 08:01 Pulse Ox 98 07/17/21 07:23 BMI result Body Mass Index 19.8 Const: Other: Constitutional : Alert, interactive, looks weak and deconditioned Neck : Normal inspection, Supple Cardiovascular : RRR, no JVP, no lower extremity edema Respiratory : fair bilateral air entry, basal right fine crackles, wheezes or rhonchi Gastrointestinal: soft, lax, Normal bowel sounds, Non tender Skin : Warm, Dry, Arroyo catheter in place Neurological : Alert & disoriented, No focal deficit , CN 2-12 within normal Objective Data Active Medications Acetaminophen (Acetaminophen 325 Mg Tablet) 650 mg PO Q6H PRN PRN Reason: Pain, Mild (Pain Scale 1-3) Last Admin: 07/17/21 00:26 Dose: 650 mg Documented by: GENNARO Albuterol Sulfate (Albuterol Sulfate 90 Mcg 8 Gm Inhaler) 2 puff INHALE Q4H PRN PRN Reason: Wheezing Aspirin (Aspirin Enteric Coated 81 Mg Tablet.) 81 mg PO DAILY [facility] Last Admin: 07/17/21 07:49 Dose: 81 mg Documented by: MADAN Atorvastatin Calcium (Atorvastatin Calcium 10 Mg Tablet) 10 mg PO DAILY [facility] Last Admin: 07/17/21 07:49 Dose: 10 mg Documented by: MADAN Cyanocobalamin (Cyanocobalamin (Vitamin B-12) 1,000 Mcg Tablet) 1,000 mcg PO DAILY [facility] Last Admin: 07/17/21 07:50 Dose: 1,000 mcg Documented by: MADAN Donepezil HCl (Donepezil Hcl 10 Mg Tablet) 10 mg PO DAILY [facility] Last Admin: 07/17/21 07:58 Dose: 10 mg Documented by: MADAN Gabapentin (Gabapentin 100 Mg Capsule) 100 mg PO BID [facility] Last Admin: 07/17/21 07:50 Dose: 100 mg Documented by: MADAN Guaifenesin (Guaifenesin La 600 Mg Tab.Er.12h) 600 mg PO Q6H PRN PRN Reason: phlegm Heparin Sodium (Porcine) (Heparin Sodium,Porcine 5,000 Unit/Ml Vial) 5,000 unit SUBCUT Q8H [facility] Last Admin: 07/17/21 09:59 Dose: 5,000 unit Documented by: MADAN Piperacillin Sod/Tazobactam (Sod 3.375 gm/ Sodium Chloride) 50 mls @ 100 mls/hr IV Q6H [facility] Last Admin: 07/17/21 13:43 Dose: 100 mls/hr Documented by: MADAN Vancomycin HCl 1,500 mg/ (Sodium Chloride) 500 mls @ 333.333 mls/hr IV Q24H [facility] Melatonin (Melatonin 3 Mg Tablet) 3 mg PO BEDTIME PRN PRN Reason: Insomnia Memantine (Memantine Hcl 5 Mg Tablet) 5 mg PO BID [facility] Last Admin: 07/17/21 07:58 Dose: 5 mg Documented by: MADAN Midodrine (Midodrine Hcl 5 Mg Tablet) 5 mg PO TID [facility] Last Admin: 07/17/21 07:48 Dose: 5 mg Documented by: MADAN Multivitamins/Vitamin C (Multivitamin Tablet) 1 tab PO DAILY [facility] Last Admin: 07/17/21 07:49 Dose: 1 tab Documented by: MADAN Omeprazole (Omeprazole 20 Mg Scott.) 20 mg PO DAILY@0630 [facility] Last Admin: 07/17/21 06:05 Dose: 20 mg Documented by: DARIEN-TEDDY Ondansetron HCl (Ondansetron Hcl 4 Mg/2 Ml Vial) 4 mg IVPUSH Q8H PRN PRN Reason: Nausea and Vomiting Pharmacy Consult (Consult Rx Perform Med Rec) 1 each MISCELLANE ONCE PRN PRN Reason: Consult order Pharmacy Consult (Consult Rx Perform Med Rec) 1 each MISCELLANE ONCE PRN PRN Reason: Consult order Pharmacy Consult (Consult Rx Vancomycin Dosing) 1 each MISCELLANE DAILY PRN PRN Reason: Consult order Prednisone (Prednisone 5 Mg Tablet) 5 mg PO DAILY@1700 [facility] Prednisone (Prednisone 10 Mg Tablet) 10 mg PO DAILY [facility] Last Admin: 07/17/21 07:49 Dose: 10 mg Documented by: MADAN Risperidone (Risperidone 0.25 Mg Tablet) 0.75 mg PO DAILY [facility] Last Admin: 07/17/21 07:48 Dose: 0.75 mg Documented by: MADAN Risperidone (Risperidone 1 Mg Tablet) 1 mg PO BEDTIME [facility] Last Admin: 07/16/21 20:37 Dose: 1 mg Documented by: NITHYA Sertraline HCl (Sertraline Hcl 50 Mg Tablet) 50 mg PO DAILY [facility] Last Admin: 07/17/21 07:48 Dose: 50 mg Documented by: MADAN Sertraline HCl (Sertraline Hcl 100 Mg Tablet) 100 mg PO DAILY [facility] Last Admin: 07/17/21 07:50 Dose: 100 mg Documented by: MADAN Sodium Chloride (0.9 % Sodium Chloride Flush 3 Ml Syringe) 3 ml IVFLUSH QSHIFT [facility] Last Admin: 07/17/21 07:04 Dose: Not Given Documented by: MADAN Non-Admin Reason: Med Not Available Tamsulosin HCl (Tamsulosin Hcl 0.4 Mg Capsule) 0.4 mg PO DAILY [facility] Last Admin: 07/17/21 07:50 Dose: 0.4 mg Documented by: MADAN Labs CBC & Chem 7: 07/17/21 04:16 07/17/21 04:16 Labs: Laboratory Results - last 24 hr 07/16/21 07/16/21 07/17/21 15:08 15:08 01:54 MCV MCH MCHC RDW Plt Count MPV Absolute Nucleated RBC Nucleated RBC % (auto) Anion Gap Estim Creat Clear Calc Estimated GFR Random Glucose Lactic Acid Cancelled 2.5 H* Lactic Acid F/U @ 2Hr 0.9 Calcium 07/17/21 07/17/21 07/17/21 04:16 04:16 04:16 MCV 97.2 MCH 31.8 MCHC 32.7 RDW 14.7 Plt Count 189 MPV 9.7 Absolute Nucleated RBC 0.000 Nucleated RBC % (auto) 0.0 Anion Gap 11 L Estim Creat Clear Calc 90.6 Estimated GFR > 60 Random Glucose 92 Lactic Acid Lactic Acid F/U @ 2Hr 1.6 Calcium 8.2 L D 07/17/21 07:14 MCV MCH MCHC RDW Plt Count MPV Absolute Nucleated RBC Nucleated RBC % (auto) Anion Gap Estim Creat Clear Calc Estimated GFR Random Glucose Lactic Acid 1.3 Lactic Acid F/U @ 2Hr Calcium Microbiology Microbiology Results: Microbiology 07/16/21 12:52 Blood Culture - Preliminary Blood - Venous No growth after 24 hours. 07/16/21 12:52 Blood Culture - Preliminary Blood - Venous No growth after 24 hours. 07/16/21 14:23 Urine Culture - Final Urine clean catch - Urine ledbetter top Assessment and Plan (1) Hypotension: Status: Acute (2) Sepsis: Status: Acute (3) Acute UTI: Status: Acute Plan a 70 years old male with PMH of dementia, Myasthenia gravis post thymectomy, COPD, BPH among others who presented to the hospital from a son of for encephalopathy. sepsis, resolved Secondary to UTI lactic acidosis, hypotension continue IV antibiotic Pending urine and blood cultures Hypotension baseline hypotension on midodrine Likely secondary to infection, not severe sepsis DC IV fluids continue home midodrine metabolic encephalopathy , resolved Secondary to infection, advanced dementia mentation improved but the patient is disoriented recurrent reorientation Acute kidney injury Secondary to sepsis and hypovolemia improved with IV fluid Monitor intake and output Follow BMP Resume rest of home medications DVT PPX Hep the patient will need to overnight hospital stay for treatment of sepsis pending final blood cultures given high risk of decompensation to severe sepsis. Quality Stroke Does the patient have a stroke diagnosis?: No VTE Prior VTE?: No VTE Risk Level:: Medical - moderate - high VTE Device Contraindication: Treatment Not Indicated VTE Drug Contraindication: N/A - Med Ordered
[2021-07-17] MEDS: vancomycin HCL 1,500 MG in 0.9 % Sodium Chloride 500 ML 333.33 MG IV (15:24)
--- NOTE | 2021-07-17 15:51 | MHC.CM.PN ---
Addendum entered by Ade Davidson 07/17/21 15:56: IMM COPY SENT TO [facility] Original Note: VM MESSAGE LEFT FOR PTS SON, BAR MARCANO ([phone]) INFOMRING HIM OF MEDICARE RIGHTS AND PLAN TO MAIL HIM A COPY. CONTACT INFORMATION WAS ALSO PROVIDED WITH A REQUEST FOR A RETURN CALL. PT ADMITTED FROM [facility] WHERE HE HAS BEEN SINCE 04/14/21. DC PLAN TBD ONCE SON IS CONTACTED. ? RETURN TO [facility] VIA S
[2021-07-17] MEDS: guaiFENesin LA 600 MG TAB.ER.12H PO (16:37)
[2021-07-17] MEDS: predniSONE 5 MG TABLET PO (16:37)
[2021-07-17] MEDS: risperiDONE 1 MG TABLET PO (21:17)
[2021-07-18] MEDS: Heparin Sodium,Porcine 5,000 UNIT/ML VIAL 5000 UNIT SUBCUT ×3 (01:02→16:59)
[2021-07-18] MEDS: Piperacillin Sodium/Tazobactam 3.375 GM in 0.9 % Sodium Chloride 50 ML IV ×2 (01:03→06:39)
[2021-07-18 03:45] VITALS: BP 110/64; PULSE 84; RESP 18; TEMP 36.6; O2SAT 96
[2021-07-18 06:03] LABS: Anion Gap 8 (12-20); Blood Urea Nitrogen 15 mg/dL (9-16); Calcium 8.3 mg/dL (8.4-10.2); Carbon Dioxide 28 mmol/L (22-29); Chloride 106 mmol/L (96-108); Creatinine Clr Calc Pharmacy 90.6; Estimated Glomerular Filt Rate > 60; Glucose Random 96 mg/dL (60-115); Potassium 3.8 mmol/L (3.3-5.1); Sodium 138 mmol/L (135-145)
[2021-07-18] MEDS: Omeprazole 20 MG CAPSULE.DR PO (06:39)
[2021-07-18] MEDS: 0.9 % Sodium Chloride Flush 3 ML SYRINGE IVFLUSH ×3 (07:39→21:05)
[2021-07-18] MEDS: Aspirin Enteric Coated 81 MG TABLET.DR PO (07:40)
[2021-07-18] MEDS: Cyanocobalamin (Vitamin B-12) 1,000 MCG TABLET 1000 MCG PO (07:40)
[2021-07-18] MEDS: Sertraline HCL 100 MG TABLET PO (07:40)
[2021-07-18] MEDS: Multivitamin TABLET 1 TAB PO (07:40)
[2021-07-18] MEDS: Gabapentin 100 MG CAPSULE PO ×2 (07:40→21:04)
[2021-07-18] MEDS: Midodrine HCl 5 MG TABLET PO ×3 (07:40→21:04)
[2021-07-18] MEDS: Atorvastatin Calcium 10 MG TABLET PO (07:40)
[2021-07-18] MEDS: Donepezil HCl 10 MG TABLET PO (07:40)
[2021-07-18] MEDS: Memantine HCl 5 MG TABLET PO ×2 (07:40→21:04)
[2021-07-18] MEDS: predniSONE 10 MG TABLET PO (07:40)
[2021-07-18] MEDS: Sertraline HCL 50 MG TABLET PO (07:41)
[2021-07-18] MEDS: Tamsulosin HCL 0.4 MG CAPSULE PO (07:42)
[2021-07-18] MEDS: risperiDONE 0.25 MG TABLET 0.75 MG PO (07:42)
[2021-07-18 08:00] VITALS: BP 137/66; PULSE 81; RESP 16; TEMP 36.9; O2SAT 97
--- NOTE | 2021-07-18 09:49 | MHC.CM.PN ---
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
--- NOTE | 2021-07-18 10:21 | HO.PM.IMPN ---
Subjective Subjective Date of Service: 07/18/21 Interval History: seen and evaluated Feeling comfortable, denies any pain No fever for the last 24 hours No reported other overnight events Review of Systems Reports feeling weakness No chest pain, palpitation No shortness of breath or coughing No abdominal pain, nausea or vomiting denies urinary symptoms denies rash or wounds Physical Exam Vital Signs: Vital Signs: Last Vital Signs Temp 98.4 F 07/18/21 08:00 Pulse 81 07/18/21 08:00 Resp 16 07/18/21 08:00 BP 137/66 07/18/21 08:00 Pulse Ox 97 07/18/21 08:00 BMI result Body Mass Index 19.8 Const: Other: Constitutional : Alert, interactive, looks weak and deconditioned Neck : Normal inspection, Supple Cardiovascular : RRR, no JVP, no lower extremity edema Respiratory : fair bilateral air entry, basal right fine crackles, wheezes or rhonchi Gastrointestinal: soft, lax, Normal bowel sounds, Non tender Skin : Warm, Dry, Arroyo catheter in place Neurological : Alert & disoriented, No focal deficit , CN 2-12 within normal Objective Data Active Medications Acetaminophen (Acetaminophen 325 Mg Tablet) 650 mg PO Q6H PRN PRN Reason: Pain, Mild (Pain Scale 1-3) Last Admin: 07/17/21 00:26 Dose: 650 mg Documented by: GENNARO Albuterol Sulfate (Albuterol Sulfate 90 Mcg 8 Gm Inhaler) 2 puff INHALE Q4H PRN PRN Reason: Wheezing Aspirin (Aspirin Enteric Coated 81 Mg Tablet.) 81 mg PO DAILY [facility] Last Admin: 07/18/21 07:40 Dose: 81 mg Documented by: SYED Atorvastatin Calcium (Atorvastatin Calcium 10 Mg Tablet) 10 mg PO DAILY [facility] Last Admin: 07/18/21 07:40 Dose: 10 mg Documented by: SYED Cefuroxime Axetil (Cefuroxime Axetil 250 Mg Tablet) 250 mg PO Q12H [facility] Last Admin: 07/18/21 09:38 Dose: 250 mg Documented by: TANNER Cyanocobalamin (Cyanocobalamin (Vitamin B-12) 1,000 Mcg Tablet) 1,000 mcg PO DAILY [facility] Last Admin: 07/18/21 07:40 Dose: 1,000 mcg Documented by: SYED Donepezil HCl (Donepezil Hcl 10 Mg Tablet) 10 mg PO DAILY [facility] Last Admin: 07/18/21 07:40 Dose: 10 mg Documented by: SYED Gabapentin (Gabapentin 100 Mg Capsule) 100 mg PO BID [facility] Last Admin: 07/18/21 07:40 Dose: 100 mg Documented by: SYED Guaifenesin (Guaifenesin La 600 Mg Tab.Er.12h) 600 mg PO Q6H PRN PRN Reason: phlegm Last Admin: 07/17/21 16:37 Dose: 600 mg Documented by: HAKEEM Heparin Sodium (Porcine) (Heparin Sodium,Porcine 5,000 Unit/Ml Vial) 5,000 unit SUBCUT Q8H [facility] Last Admin: 07/18/21 09:38 Dose: 5,000 unit Documented by: TANNER Melatonin (Melatonin 3 Mg Tablet) 3 mg PO BEDTIME PRN PRN Reason: Insomnia Memantine (Memantine Hcl 5 Mg Tablet) 5 mg PO BID [facility] Last Admin: 07/18/21 07:40 Dose: 5 mg Documented by: SYED Midodrine (Midodrine Hcl 5 Mg Tablet) 5 mg PO TID [facility] Last Admin: 07/18/21 07:40 Dose: 5 mg Documented by: SYED Multivitamins/Vitamin C (Multivitamin Tablet) 1 tab PO DAILY [facility] Last Admin: 07/18/21 07:40 Dose: 1 tab Documented by: SYED Omeprazole (Omeprazole 20 Mg Capsule.Dr) 20 mg PO DAILY@0630 [facility] Last Admin: 07/18/21 06:39 Dose: 20 mg Documented by: ODRISMariela Ondansetron HCl (Ondansetron Hcl 4 Mg/2 Ml Vial) 4 mg IVPUSH Q8H PRN PRN Reason: Nausea and Vomiting Pharmacy Consult (Consult Rx Perform Med Rec) 1 each MISCELLANE ONCE PRN PRN Reason: Consult order Pharmacy Consult (Consult Rx Perform Med Rec) 1 each MISCELLANE ONCE PRN PRN Reason: Consult order Pharmacy Consult (Consult Rx Vancomycin Dosing) 1 each MISCELLANE DAILY PRN PRN Reason: Consult order Prednisone (Prednisone 5 Mg Tablet) 5 mg PO DAILY@1700 [facility] Last Admin: 07/17/21 16:37 Dose: 5 mg Documented by: HAKEEM Prednisone (Prednisone 10 Mg Tablet) 10 mg PO DAILY [facility] Last Admin: 07/18/21 07:40 Dose: 10 mg Documented by: SYED Risperidone (Risperidone 0.25 Mg Tablet) 0.75 mg PO DAILY [facility] Last Admin: 07/18/21 07:42 Dose: 0.75 mg Documented by: SYED Risperidone (Risperidone 1 Mg Tablet) 1 mg PO BEDTIME [facility] Last Admin: 07/17/21 21:17 Dose: 1 mg Documented by: ELOISARISM Sertraline HCl (Sertraline Hcl 50 Mg Tablet) 50 mg PO DAILY [facility] Last Admin: 07/18/21 07:41 Dose: 50 mg Documented by: SYED Sertraline HCl (Sertraline Hcl 100 Mg Tablet) 100 mg PO DAILY [facility] Last Admin: 07/18/21 07:40 Dose: 100 mg Documented by: SYED Sodium Chloride (0.9 % Sodium Chloride Flush 3 Ml Syringe) 3 ml IVFLUSH QSHIFT [facility] Last Admin: 07/18/21 07:39 Dose: 3 ml Documented by: SYED Tamsulosin HCl (Tamsulosin Hcl 0.4 Mg Capsule) 0.4 mg PO DAILY [facility] Last Admin: 07/18/21 07:42 Dose: 0.4 mg Documented by: SYED Labs CBC & Chem 7: 07/17/21 04:16 07/18/21 05:25 Labs: Laboratory Results - last 24 hr 07/18/21 05:25 Anion Gap 8 L Estim Creat Clear Calc 90.6 Estimated GFR > 60 Random Glucose 96 Calcium 8.3 L Microbiology Microbiology Results: Microbiology 07/17/21 01:54 Blood Culture - Preliminary Blood - Venous No growth after 24 hours. 07/17/21 01:55 Blood Culture - Preliminary Blood - Venous No growth after 24 hours. 07/16/21 12:52 Blood Culture - Preliminary Blood - Venous No growth after 24 hours. 07/16/21 12:52 Blood Culture - Preliminary Blood - Venous No growth after 24 hours. 07/16/21 14:23 Urine Culture - Final Urine clean catch - Urine ledbetter top Assessment and Plan (1) Acute UTI: Status: Acute (2) Sepsis: Status: Acute (3) Hypotension: Status: Acute Plan a 70 years old male with PMH of dementia, Myasthenia gravis post thymectomy, COPD, BPH among others who presented to the hospital from a son of for encephalopathy. sepsis, resolved Secondary to UTI from chronic Arroyo catheter CXR negative for any pneumonias, could have silent aspiration No fever for the last 24 hours Negative urine and blood cultures Deescalate IV antibiotic to p.o. Ceftin Monitor overnight for any recurrent fever Change chronic Arroyo catheter Hypotension Improved baseline hypotension on midodrine continue home midodrine metabolic encephalopathy , improved Secondary to infection, advanced dementia Patient more alert and interactive but he is disoriented which is his baseline recurrent reorientation Acute kidney injury Secondary to sepsis and hypovolemia Resolved Discontinue IV fluid Monitor intake and output Follow BMP Resume rest of home medications DVT PPX Hep the patient will need to overnight hospital stay for treatment of sepsis after de-escalated IV antibiotics and Arroyo catheter change given high risk of decompensation to severe sepsis. Quality Stroke Does the patient have a stroke diagnosis?: No VTE Prior VTE?: No VTE Risk Level:: Medical - moderate - high VTE Device Contraindication: Treatment Not Indicated VTE Drug Contraindication: N/A - Med Ordered
[2021-07-18 11:56] VITALS: BP 98/60; PULSE 82; RESP 17; TEMP 36.6; O2SAT 96
[2021-07-18 15:25] VITALS: BP 93/62; PULSE 90; RESP 18; TEMP 36.4; O2SAT 96
[2021-07-18] MEDS: predniSONE 5 MG TABLET PO (16:59)
--- NOTE | 2021-07-18 17:40 | PC.NURSE ---
Patient has a chronic FC, changed today with a new one 16 FR per Md Jones. Patient tolerated procedure well.
[2021-07-18 19:32] VITALS: BP 104/65; PULSE 74; RESP 17; TEMP 36.4; O2SAT 97
[2021-07-18] MEDS: risperiDONE 1 MG TABLET PO (21:04)
[2021-07-18 23:17] VITALS: BP 105/73; PULSE 74; RESP 18; TEMP 36.7; O2SAT 98
[2021-07-19] MEDS: Heparin Sodium,Porcine 5,000 UNIT/ML VIAL 5000 UNIT SUBCUT ×2 (01:59→10:07)
[2021-07-19 03:26] VITALS: BP 111/64; PULSE 52; RESP 18; TEMP 36.4; O2SAT 97
[2021-07-19] MEDS: Omeprazole 20 MG CAPSULE.DR PO (05:38)
[2021-07-19 06:28] LABS: Anion Gap 11 (12-20); Blood Urea Nitrogen 14 mg/dL (9-16); Calcium 8.6 mg/dL (8.4-10.2); Carbon Dioxide 29 mmol/L (22-29); Chloride 106 mmol/L (96-108); Creatinine Clr Calc Pharmacy 101.4; Estimated Glomerular Filt Rate > 60; Glucose Random 109 mg/dL (60-115); Potassium 3.8 mmol/L (3.3-5.1); Sodium 142 mmol/L (135-145)
[2021-07-19 07:51] VITALS: BP 124/74; PULSE 74; RESP 16; TEMP 36.2; O2SAT 96
[2021-07-19] MEDS: Aspirin Enteric Coated 81 MG TABLET.DR PO (08:11)
[2021-07-19] MEDS: risperiDONE 0.25 MG TABLET 0.75 MG PO (08:11)
[2021-07-19] MEDS: 0.9 % Sodium Chloride Flush 3 ML SYRINGE IVFLUSH (08:11)
[2021-07-19] MEDS: Sertraline HCL 50 MG TABLET PO (08:12)
[2021-07-19] MEDS: Sertraline HCL 100 MG TABLET PO (08:12)
[2021-07-19] MEDS: Cyanocobalamin (Vitamin B-12) 1,000 MCG TABLET 1000 MCG PO (08:12)
[2021-07-19] MEDS: Donepezil HCl 10 MG TABLET PO (08:12)
[2021-07-19] MEDS: Gabapentin 100 MG CAPSULE PO (08:12)
[2021-07-19] MEDS: Atorvastatin Calcium 10 MG TABLET PO (08:12)
[2021-07-19] MEDS: predniSONE 10 MG TABLET PO (08:12)
[2021-07-19] MEDS: Multivitamin TABLET 1 TAB PO (08:12)
[2021-07-19] MEDS: Midodrine HCl 5 MG TABLET PO ×2 (08:12→14:38)
[2021-07-19] MEDS: Tamsulosin HCL 0.4 MG CAPSULE PO (08:12)
[2021-07-19] MEDS: Memantine HCl 5 MG TABLET PO (08:12)
--- NOTE | 2021-07-19 11:00 | P.DS_ITS ---
DS: Providers Provider Date of Service: 07/19/21 Date of admission: 07/16/21 17:38 Primary care physician: MARCELA SALGADO Consults: 07/16/21 14:28 Consult to Critical Care Stat Consulting Provider: Boom Lovett Reason for consultation: dispo to ICU versus floor Has provider been notified: Yes DS: Diagnosis Discharge Diagnosis (1) Acute UTI: Status: Acute (2) Sepsis: Status: Acute (3) Hypotension: Status: Acute DS: Summary Hospital Course Hospital Course: from initial hpi: Chief Complaint: Encephalopathy, weakness ?a 70 years old male with PMH of dementia, ? Myasthenia gravis post thymectomy, COPD, BPH among others who presented to the hospital from a son of for encephalopathy.? The patient? was brought by? EMS as the facility staff reported altered mentation, fever and decreased oral intake.? The patient cannot help much with the history as he has advanced dementia and does not know how did he end up in the hospital.? In the emergency he was noted to have low blood pressure of 80s over 50s along with fever and evidence of urine infection.? Intensive care? provider was consulted for evaluation but the patient responded to IV fluid with fair response and decision was made to admit to the medical floor.? Urinalysis showed 30-49 wbc's, with 3+ leukocyte esterase and 1+ urine bacteria. He will be admitted for further evaluation treatment. hospital course: Patient was admitted for severe sepsis due to complicated urinary tract infection in patient with chronic Arroyo catheter complicated by metabolic encephalopathy and hypotension Patient received IV fluids and IV antibiotics, his cultures did not grow out, hypotension resolved. His mental status returned to baseline which is alert but disoriented due to likely Alzheimer's dementia. his sepsis resolved. He was transitioned to oral cefuroxime and will continue for 5 more days. He will continue tamsulosin for BPH, as needed bronchodilators for COPD. He will be discharged back to long-term care. Time Spent with Patient Time attestation: Total time spent providing and/or coordinating discharge services: Discharge coordination time: Greater than 30 minutes Quality: Safe Use of Opioids Does Pt have an Active Cancer Diagnosis on the Problem List?: No Quality: Stroke Does the patient have a stroke diagnosis?: No Physical Exam Vital Signs: Vital Signs: Last Vital Signs Temp 97.2 F 07/19/21 07:51 Pulse 74 07/19/21 07:51 Resp 16 07/19/21 07:51 BP 124/74 07/19/21 07:51 Pulse Ox 96 07/19/21 07:51 BMI result Body Mass Index 19.8 General: AO X 1, no acute distress Resp: CTA bilateral, no accessory muscles used CVS: S1,S2,RRR GI: soft, non tender, non distended Neuro: motor grossly intact, alert Psych: appropriate affect, impaired insight DS: Data Data Completed and Pending Labs on day of discharge: Laboratory Results - last 24 hr 07/19/21 05:34 Sodium 142 Potassium 3.8 Chloride 106 Carbon Dioxide 29 Anion Gap 11 L BUN 14 Creatinine 0.67 Estim Creat Clear Calc 101.4 Estimated GFR > 60 Random Glucose 109 Calcium 8.6 Preliminary micro results at discharge 07/17/21 01:54 Blood Culture - Preliminary Blood - Venous No growth after 48 hours. 07/17/21 01:55 Blood Culture - Preliminary Blood - Venous No growth after 48 hours. 07/16/21 12:52 Blood Culture - Preliminary Blood - Venous No growth after 48 hours. 07/16/21 12:52 Blood Culture - Preliminary Blood - Venous No growth after 48 hours. Discharge Plan Discharge Patient Disposition: [facility] Discharge Diagnosis: sepsis, uti Referrals: MARCELA SALGADO [Primary Care Provider] - 1 Week Discharge Medications: New cefuroxime axetil 250 mg Tablet 500 mg PO Q12H 5 Days Qty: 0 0RF Continued atorvastatin 10 mg tablet 1 tab PO DAILY 0RF donepezil 10 mg tablet 1 tab PO DAILY 0RF sertraline 100 mg tablet 1 tab PO DAILY 0RF prednisone 5 mg tablet 1 tab PO DAILY@1700 0RF midodrine 5 mg tablet 1 tab PO TID 0RF tamsulosin 0.4 mg capsule 1 cap PO DAILY 0RF gabapentin 300 mg capsule 1 cap PO BID 0RF omeprazole 20 mg capsule,delayed release(DR/EC) 1 cap PO DAILY 0RF sertraline 50 mg tablet 1 tab PO DAILY 0RF risperidone 1 mg tablet 1 tab PO BEDTIME 0RF memantine 5 mg tablet 1 tab PO BID 0RF multivitamin Tablet 1 tab PO DAILY 0RF prednisone 10 mg tablet 1 tab PO DAILY 0RF melatonin 3 mg Tablet 3 mg PO BEDTIME PRN (Reason: Insomnia) 0RF albuterol sulfate 90 mcg/actuation Hfa Aerosol Inhaler 2 puff INHALATION Q4-6H PRN (Reason: Wheezing) 0RF risperidone [Risperdal] 0.5 mg Tablet 0.75 mg PO DAILY 0RF guaifenesin [Mucinex] 600 mg Tablet Extended Release 12hr 600 mg PO Q6H PRN (Reason: phlegm) 0RF cyanocobalamin (vitamin B-12) 1,000 mcg Capsule 1,000 mcg PO DAILY 0RF Senna Plus 8.6-50 mg Capsule 1 tab-cap PO BID PRN (Reason: Constipation) 0RF aspirin 81 mg Capsule 81 mg PO DAILY 0RF Discharge Orders: Discharge Order (Routine); Ordered 07/19/21 Ordered By: Robert Hoover Diet: advance to usual diet Activity on Discharge: As tolerated Stand Alone Forms: Patient Portal Discharge page Care Plan Goals: recovery Health Concerns: uti Plan of Treatment: 5 more days ceftin Assessment: see above
[2021-07-19 11:34] VITALS: BP 93/66; PULSE 79; RESP 16; TEMP 36.2; O2SAT 95
--- NOTE | 2021-07-19 12:18 | MHC.CM.PN ---
PATIENT TO TRANSFER BACK TO [facility] RN, PATIENT, UNIT, AND SON BAR ([phone]) AWARE IMM 07/17 COMPLETED.
[2021-07-19 13:54] LABS: Vancomycin Trough < 3.0 mcg/mL (10.0-20.0)
== END 2021-07-19 15:00 | disposition skilled nursing facility (03) | DRG 698 ==
LOC: HO.ED 14:36 → HO.EDOVER 17:56 → HO.S3 07-17 15:37
PROVIDERS: Internal Medicine; Physician Assistant; Admitting Provider Student in an Organized Health Care Education/Training Program; Emergency Provider Emergency Medicine; PCP Emergency Medicine; Visit Provider Internal Medicine
DX: T83.511A Infection and inflammatory reaction due to indwelling urethral catheter, initial encounter (principal); A41.9 Sepsis, unspecified organism; G93.41 Metabolic encephalopathy; N17.9 Acute kidney failure, unspecified; N39.0 Urinary tract infection, site not specified; Z66 Do not resuscitate; J44.9 Chronic obstructive pulmonary disease, unspecified; N40.0 Benign prostatic hyperplasia without lower urinary tract symptoms; G30.9 Alzheimer's disease, unspecified; F02.80 Dementia in other diseases classified elsewhere, unspecified severity, without behavioral disturbance, psychotic disturbance, mood disturbance, and anxiety; E86.1 Hypovolemia; K21.9 Gastro-esophageal reflux disease without esophagitis; Z20.822 Contact with and (suspected) exposure to COVID-19; Z87.891 Personal history of nicotine dependence; Z79.82 Long term (current) use of aspirin; Z79.52 Long term (current) use of systemic steroids; Z79.899 Other long term (current) drug therapy
CPT/HCPCS: 36415; 71045; 80048; 80053; 80202; 81001; 82803; 83605; 85025; 85027; 85610; 85730; 87040; 87086; 87502; 87635; 94640; 96361; 96365; 96367; 99285; C1758; J2543; J3370

== ENCOUNTER 2021-07-25 10:28 | Outpatient (REF) | payer MEDICARE, SELFPAY ==
--- NOTE | ~2021-07-25 | US_ITS ---
EXAMINATION: US PELVIS LIMITED (BLADDER) CLINICAL INFORMATION: UTI. COMPARISON: Renal ultrasound 07/04/2021. TECHNIQUE: Real-time imaging of the bladder. FINDINGS: BLADDER: There is a Arroyo catheter in the bladder. The patient attempted to fill his bladder and Arroyo catheter was clamped. However, the bladder is not optimally distended US/US bladder IMPRESSION: Arroyo catheter in the bladder. Bladder not optimally distended and not well evaluated..
== END 2021-07-25 10:29 | disposition home or self-care (01) ==
LOC: HO.US 10:28
PROVIDERS: PCP Emergency Medicine; Visit Provider Emergency Medicine
DX: N39.0 Urinary tract infection, site not specified (principal); R33.9 Retention of urine, unspecified; N40.1 Benign prostatic hyperplasia with lower urinary tract symptoms
CPT/HCPCS: 76857

== ENCOUNTER 2021-09-14 13:17 | Outpatient (REF) | payer MEDICARE, SELFPAY ==
[2021-09-14 14:12] LABS: Anion Gap 14 (12-20); Blood Urea Nitrogen 20 mg/dL (9-16); Calcium 9.9 mg/dL (8.4-10.2); Carbon Dioxide 29 mmol/L (22-29); Chloride 102 mmol/L (96-108); Estimated Glomerular Filt Rate > 60; Glucose Random 111 mg/dL (60-115); Potassium 4.3 mmol/L (3.3-5.1); Sodium 141 mmol/L (135-145)
[2021-09-14 14:42] LABS: Vitamin B12 1413 pg/mL (200-900)
[2021-09-20 17:27] LABS: Acetylcholine Receptor Binding <0.30 nmol/L
[2021-09-22 00:32] LABS: Acetylcholine Recept. Blocking <15 (<15)
[2021-09-23 15:26] LABS: Acetylcholine Recep Modulating 8
== END 2021-09-14 13:18 | disposition home or self-care (01) ==
LOC: HO.LAB 13:17
PROVIDERS: PCP Emergency Medicine; Visit Provider Psychiatry & Neurology Neurology
DX: G70.00 Myasthenia gravis without (acute) exacerbation (principal)
CPT/HCPCS: 36415; 80048; 82607; 83519

== ENCOUNTER 2021-10-17 13:23 | Emergency (ER) | payer MEDICARE, SELFPAY ==
[2021-10-17 14:02] VITALS: BP 115/83; BP 115/88; PULSE 92; PULSE 94; RESP 14; TEMP 37.1; O2SAT 96; O2SAT 97; BMI 21.3
--- NOTE | 2021-10-17 14:19 | ED.MALEGU ---
HPI - Male Genitourinary General Chief complaint: Urogenital-Male <OUMOU Lay - Last Filed: 10/17/21 17:40> Stated complaint: 10 bladder pain <OUMOU Lay - Last Filed: 10/17/21 17:40> Time Seen by Provider: 10/17/21 13:43 <OUMOU Lay - Last Filed: 10/17/21 17:40> Source: patient <OUMOU Lay - Last Filed: 10/17/21 17:40> Mode of arrival: ambulatory <OUMOU Lay - Last Filed: 10/17/21 17:40> Limitations: no limitations <OUMOU Lay Last Filed: 10/17/21 17:40> History of Present Illness HPI Narrative: 70-year-old male presents with chronic bean to ED for bladder pain which began today. urine in his Bean is thick and yellow. patient denies any vomiting but does have bladder/ lower suprapubic abdominal pain. patient denies any other complaint. <OUMOU Lay - Last Filed: 10/17/21 17:40> Related Data Home medications: Home Medications Medication Instructions Recorded Confirmed albuterol sulfate 90 mcg/actuation 2 puff inhalation Q4-6H PRN 07/16/21 07/16/21 aerosol inhaler Wheezing aspirin 81 mg capsule 81 mg PO DAILY 07/16/21 07/16/21 atorvastatin 10 mg tablet 1 tab PO DAILY 07/16/21 07/16/21 cyanocobalamin (vitamin B-12) 1,000 mcg PO DAILY 07/16/21 07/16/21 1,000 mcg capsule donepezil 10 mg tablet 1 tab PO DAILY 07/16/21 07/16/21 gabapentin 300 mg capsule 1 cap PO BID 07/16/21 07/16/21 guaifenesin 600 mg tablet, 600 mg PO Q6H PRN phlegm 07/16/21 07/16/21 extended release 12 hr (Mucinex) melatonin 3 mg tablet 3 mg PO BEDTIME PRN Insomnia 07/16/21 07/16/21 memantine 5 mg tablet 1 tab PO BID 07/16/21 07/16/21 midodrine 5 mg tablet 1 tab PO TID 07/16/21 07/16/21 multivitamin 1 tab PO DAILY 07/16/21 07/16/21 omeprazole 20 mg capsule,delayed 1 cap PO DAILY 07/16/21 07/16/21 release prednisone 10 mg tablet 1 tab PO DAILY 07/16/21 07/16/21 prednisone 5 mg tablet 1 tab PO DAILY@1700 07/16/21 07/16/21 risperidone 0.5 mg tablet 0.75 mg PO DAILY 07/16/21 07/16/21 (Risperdal) risperidone 1 mg tablet 1 tab PO BEDTIME 07/16/21 07/16/21 sennosides 8.6 mg-docusate sodium 1 tab-cap PO BID PRN Constipation 07/16/21 07/16/21 50 mg capsule (Senna Plus) sertraline 100 mg tablet 1 tab PO DAILY 07/16/21 07/16/21 sertraline 50 mg tablet 1 tab PO DAILY 07/16/21 07/16/21 tamsulosin 0.4 mg capsule 1 cap PO DAILY 07/16/21 07/16/21 Previous Rx's Medication Instructions Recorded cefuroxime axetil 250 mg tablet 500 mg PO Q12H 5 days #0 tabs 07/19/21 cefpodoxime 100 mg tablet 100 mg PO BID 7 days #14 tabs 10/17/21 <OUMOU Lay - Last Filed: 10/17/21 17:40> Allergies/Adverse reactions: Allergies Allergy/AdvReac Type Severity Reaction Status Date / Time bacitracin Allergy Unknown Verified 07/16/21 12:22 [From Neosporin ([id number])] iodine Allergy Unknown Verified 07/16/21 12:22 neomycin Allergy Unknown Verified 07/16/21 12:22 [From Neosporin ([id number])] polymyxin B Allergy Unknown Verified 07/16/21 12:22 [From Neosporin ([id number])] <OUMOU Lay - Last Filed: 10/17/21 17:40> Review of Systems Review of Systems: Bladder pain. THick urine in Bean. <OUMOU Lay - Last Filed: 10/17/21 17:40> Yes all other systems are reviewed and are negative <OUMOU Lay - Last Filed: 10/17/21 17:40> PMFSH Past Medical History Medical History: Medical History BPH (benign prostatic hyperplasia) Compression fx, lumbar spine Compression fx, thoracic spine Constipation Dementia Dementia Depression GERD (gastroesophageal reflux disease) High cholesterol Myasthenia gravis Urinary retention <OUMOU Lay - Last Filed: 10/17/21 17:40> Surgical History: Surgical History H/O thymectomy <OUMOU Lay - Last Filed: 10/17/21 17:40> Social History Social History: Social History Household Members: Other Housing: [facility] Other:: [facility] Alcohol intake: never Patient Tobacco Use Status: Current someday Tobacco user Use of substances other than those prescribed or required for medical reasons: No Advance Directives: Yes Advance Directives on File: Yes Advance Directives Date on File: 07/17/21 <OUMOU Lay - Last Filed: 10/17/21 17:40> Physical Exam Vital Signs: Vital Signs: Last Vital Signs Temp 98.7 F 10/17/21 14:02 Pulse 74 10/17/21 16:26 Resp 16 10/17/21 16:26 BP 92/71 10/17/21 16:26 Pulse Ox 95 10/17/21 16:26 O2 Del Method 10/17/21 16:26 Oxygen Flow Rate 3 10/17/21 14:02 BMI result Body Mass Index 21.3 <OUMOU Lay - Last Filed: 10/17/21 17:40> Vital Signs: Last Vital Signs Temp 98.7 F 10/17/21 14:02 Pulse 74 10/17/21 16:26 Resp 16 10/17/21 16:26 BP 92/71 10/17/21 16:26 Pulse Ox 95 10/17/21 16:26 O2 Del Method 10/17/21 16:26 Oxygen Flow Rate 3 10/17/21 14:02 BMI result Body Mass Index 21.3 <OUMOU Cota - Last Filed: 10/24/21 17:43> Const: General: cooperative, healthy appearing, comfortable, no acute distress, well developed, alert, awake and Physically active <OUMOU Lay - Last Filed: 10/17/21 17:40> Orientation/consciousness: oriented to time and patient oriented x3 <Kamar Chang [facility] Last Filed: 10/17/21 17:40> HEENT: Head: Yes normal to inspection, Yes No palpable skull fracture present, Yes normocephalic, Yes atraumatic and No abrasion <Kamar Chang [facility] Last Filed: 10/17/21 17:40> Eyes: General: appearance normal, both eyes and all related structures <Kamar Chang [facility] Last Filed: 10/17/21 17:40> Neck: Neck: Yes normal visual inspection, Yes full ROM, Yes no lymphadenopathy, Yes no meningeal signs, Yes trachea midline, Yes supple, No anterior neck swelling and No tender <Kamar Chang [facility] Last Filed: 10/17/21 17:40> Chest: Chest palpation & inspection: normal inspection of the chest and normal palpation of entire chest wall <Kamar Chang [facility] Last Filed: 10/17/21 17:40> Resp: Effort & Inspection: normal respiratory effort and able to speak in complete sentences <Kamar Chang [facility] Last Filed: 10/17/21 17:40> Auscultation: clear to auscultation bilaterally <Kamar Chang [facility] Last Filed: 10/17/21 17:40> Cardio: Jugular venous distension: no JVD <Kamar Chang [facility] Last Filed: 10/17/21 17:40> Heart sounds: S1 normal heart sound present and S2 normal heart sound present <Kamar Chang [facility] Last Filed: 10/17/21 17:40> GI: Inspection: Yes normal to inspection and No abdominal wall ecchymosis <Kamar Chang [facility] Last Filed: 10/17/21 17:40> Palpation (GI): Soft to palpation, not firm, Tenderness to palpation present (GI) suprapubicly, no guarding and not rigid <Kamar Chang [facility] Last Filed: 10/17/21 17:40> : Other: leaking urine around bean. Bean has thick cloudy UA <Kamar Chang, [facility] Last Filed: 10/17/21 17:40> General: Yes CVA tenderness and Yes no CVA tenderness <OUMOU Lay - Last Filed: 10/17/21 17:40> Back/Spine/Pelvis: Back: no CVA tenderness and CVA tenderness <OUMOU Lay - Last Filed: 10/17/21 17:40> Skin: General skin exam: no rashes or lesions noted and elasticity normal <OUMOU Lay - Last Filed: 10/17/21 17:40> Neuro: General: oriented to time, patient oriented x3, gait normal, tone normal, no meningeal signs and CN's II-XI intact bilaterally <OUMOU Lay - Last Filed: 10/17/21 17:40> Extrem: General: Yes normal to inspection and Yes full ROM <OUMOU Lay - Last Filed: 10/17/21 17:40> Psych: Appearance: grossly normal, well kempt and not disheveled <OUMOU Lay - Last Filed: 10/17/21 17:40> Course Course Course Narrative: Nurse Malatih put in a new Bean. Urine clotty and strawberry colored. Labs ordered and pending. Clean catch UA was cuaght from new bean. <OUMOU Lay - Last Filed: 10/17/21 17:40> Reevaluation(s) Reevaluation #1: UA shows UTI. Patient has a white count [id number]. Awaiting kidney function <OUMOU Lay - Last Filed: 10/17/21 17:40> Time: 17:25 <OUMOU Lay - Last Filed: 10/17/21 17:40> Reevaluation #2: Kidney function normal. Lactic acid negative for spoke with hospitalist Dr. Harper we both in agreement patient is safe for discharge. No need for admission. Patient is not septic. Patient is not altered. Kidney function is normal. Patient is safe for discharge. Patient vital signs are stable. <OUMOU Lay Last Filed: 10/17/21 17:40> Time: 17:26 <OUMOU Lay Last Filed: 10/17/21 17:40> Reevaluation #3: 10/24/21--patient's blood cultures grew Staph epidermidis and Staph hominis with susceptibilities. Called a [facility] & faxed results over. <OUMOU Cota - Last Filed: 10/24/21 17:43> Time: 17:42 <OUMOU Cota - Last Filed: 10/24/21 17:43> MDM - Male Genitourinary MDM Narrative Medical decision making narrative: UTI <OUMOU Lay - Last Filed: 10/17/21 17:40> Lab Data Result diagrams: : 10/17/21 14:29 10/17/21 14:29 <OUMOU Lay - Last Filed: 10/17/21 17:40> Labs: Lab Results 10/17/21 10/17/21 10/17/21 Range/Units 14:26 14:26 14:29 WBC 14.7 H (4.8-10.8) X10*3/uL RBC 4.48 L D (4.60-5.80) X10*6/uL Hgb 14.2 D (14.0-18.0) g/dl Hct 43.7 D (42.0-52.0) % MCV 97.5 (80.0-98.0) fL MCH 31.7 (27.0-33.0) pg MCHC 32.5 (31.0-36.0) g/dl RDW 13.7 (11.0-16.0) % Plt Count 273 D (160-400) X10*3/uL MPV 10.1 (9.4-12.4) fL Immature Gran % (Auto) 0.4 (0.0-0.4) % Neut % (Auto) 79.6 H (45-73) % Lymph % (Auto) 13.2 L (20-40) % Crenshaw % (Auto) 5.8 (2-11) % Eos % (Auto) 0.7 (0-4) % Baso % (Auto) 0.3 (0-2) % Lymph # (Auto) 2.0 (1.2-4.9) X10*3/uL Crenshaw # (Auto) 0.9 (0.1-1.2) X10*3/uL Eos # (Auto) 0.1 (0.0-0.4) X10*3/uL Baso # (Auto) 0.0 (0.0-0.2) X10*3/uL Abs Immat Gran (auto) 0.06 H (0.00-0.03) X10*3/uL Absolute Neuts (auto) 11.7 H (2.0-8.3) x10*3/uL Absolute Nucleated RBC 0.000 (0.0-0.012) X10*3/uL Nucleated RBC % (auto) 0.0 (0.0-0.2) /100WBC Sodium (135-145) mmol/L Potassium (3.3-5.1) mmol/L Chloride (96-108) mmol/L Carbon Dioxide (22-29) mmol/L Anion Gap (12-20) BUN (9-16) mg/dL Creatinine (0.5-1.4) mg/dL Estim Creat Clear Calc Estimated GFR Random Glucose (60-115) mg/dL Lactic Acid (0.5-2.0) mmol/L Calcium (8.4-10.2) mg/dL Total Bilirubin (0.0-1.0) mg/dL AST (5-37) U/L ALT (0-40) U/L Alkaline Phosphatase (39-117) U/L Total Protein (6.5-8.0) g/dL Albumin (3.5-5.0) g/dL Urine Color YELLOW Urine Appearance TURBID Urine pH 7.5 (5.0-8.0) Ur Specific [place] 1.015 (1.005-1.025) Urine Protein 2+ H (NEG-TRACE) MG/DL Urine Glucose (UA) NEG (NEG) MG/DL Urine Ketones NEG (NEG) MG/DL Urine Blood 3+ H (NEG) Urine Nitrite POS H (NEG) Ur Leukocyte Esterase 3+ H (NEG) Urine RBC 5-9 H (0) /HPF Urine WBC TNTC H (0-4) /HPF Ur Squamous Epith Cells NONE /LPF Urine Bacteria 2+ /LPF COVID-19 (FRANCY) Negative (Negative) COVID-19 Clin Com See Note 10/17/21 10/17/21 Range/Units 14:29 15:41 WBC (4.8-10.8) X10*3/uL RBC (4.60-5.80) X10*6/uL Hgb (14.0-18.0) g/dl Hct (42.0-52.0) % MCV (80.0-98.0) fL MCH (27.0-33.0) pg MCHC (31.0-36.0) g/dl RDW (11.0-16.0) % Plt Count (160-400) X10*3/uL MPV (9.4-12.4) fL Immature Gran % (Auto) (0.0-0.4) % Neut % (Auto) (45-73) % Lymph % (Auto) (20-40) % Crenshaw % (Auto) (2-11) % Eos % (Auto) (0-4) % Baso % (Auto) (0-2) % Lymph # (Auto) (1.2-4.9) X10*3/uL Crenshaw # (Auto) (0.1-1.2) X10*3/uL Eos # (Auto) (0.0-0.4) X10*3/uL Baso # (Auto) (0.0-0.2) X10*3/uL Abs Immat Gran (auto) (0.00-0.03) X10*3/uL Absolute Neuts (auto) (2.0-8.3) x10*3/uL Absolute Nucleated RBC (0.0-0.012) X10*3/uL Nucleated RBC % (auto) (0.0-0.2) /100WBC Sodium 142 (135-145) mmol/L Potassium 3.2 L D (3.3-5.1) mmol/L Chloride 103 (96-108) mmol/L Carbon Dioxide 30 H (22-29) mmol/L Anion Gap 12 (12-20) BUN 21 H (9-16) mg/dL Creatinine 0.91 (0.5-1.4) mg/dL Estim Creat Clear Calc 78.3 Estimated GFR > 60 Random Glucose 87 (60-115) mg/dL Lactic Acid 2.0 (0.5-2.0) mmol/L Calcium 9.4 (8.4-10.2) mg/dL Total Bilirubin 0.7 (0.0-1.0) mg/dL AST 19 D (5-37) U/L ALT 30 (0-40) U/L Alkaline Phosphatase 75 D (39-117) U/L Total Protein 6.9 (6.5-8.0) g/dL Albumin 4.1 D (3.5-5.0) g/dL Urine Color Urine Appearance Urine pH (5.0-8.0) Ur Specific [place] (1.005-1.025) Urine Protein (NEG-TRACE) MG/DL Urine Glucose (UA) (NEG) MG/DL Urine Ketones (NEG) MG/DL Urine Blood (NEG) Urine Nitrite (NEG) Ur Leukocyte Esterase (NEG) Urine RBC (0) /HPF Urine WBC (0-4) /HPF Ur Squamous Epith Cells /LPF Urine Bacteria /LPF COVID-19 (FRANCY) (Negative) COVID-19 Clin Com <OUMOU Lay - Last Filed: 10/17/21 17:40> Lab Results 10/17/21 10/17/21 10/17/21 Range/Units 14:26 14:26 14:29 WBC 14.7 H (4.8-10.8) X10*3/uL RBC 4.48 L D (4.60-5.80) X10*6/uL Hgb 14.2 D (14.0-18.0) g/dl Hct 43.7 D (42.0-52.0) % MCV 97.5 (80.0-98.0) fL MCH 31.7 (27.0-33.0) pg MCHC 32.5 (31.0-36.0) g/dl RDW 13.7 (11.0-16.0) % Plt Count 273 D (160-400) X10*3/uL MPV 10.1 (9.4-12.4) fL Immature Gran % (Auto) 0.4 (0.0-0.4) % Neut % (Auto) 79.6 H (45-73) % Lymph % (Auto) 13.2 L (20-40) % Crenshaw % (Auto) 5.8 (2-11) % Eos % (Auto) 0.7 (0-4) % Baso % (Auto) 0.3 (0-2) % Lymph # (Auto) 2.0 (1.2-4.9) X10*3/uL Crenshaw # (Auto) 0.9 (0.1-1.2) X10*3/uL Eos # (Auto) 0.1 (0.0-0.4) X10*3/uL Baso # (Auto) 0.0 (0.0-0.2) X10*3/uL Abs Immat Gran (auto) 0.06 H (0.00-0.03) X10*3/uL Absolute Neuts (auto) 11.7 H (2.0-8.3) x10*3/uL Absolute Nucleated RBC 0.000 (0.0-0.012) X10*3/uL Nucleated RBC % (auto) 0.0 (0.0-0.2) /100WBC Sodium (135-145) mmol/L Potassium (3.3-5.1) mmol/L Chloride (96-108) mmol/L Carbon Dioxide (22-29) mmol/L Anion Gap (12-20) BUN (9-16) mg/dL Creatinine (0.5-1.4) mg/dL Estim Creat Clear Calc Estimated GFR Random Glucose (60-115) mg/dL Lactic Acid (0.5-2.0) mmol/L Calcium (8.4-10.2) mg/dL Total Bilirubin (0.0-1.0) mg/dL AST (5-37) U/L ALT (0-40) U/L Alkaline Phosphatase (39-117) U/L Total Protein (6.5-8.0) g/dL Albumin (3.5-5.0) g/dL Urine Color YELLOW Urine Appearance TURBID Urine pH 7.5 (5.0-8.0) Ur Specific [place] 1.015 (1.005-1.025) Urine Protein 2+ H (NEG-TRACE) MG/DL Urine Glucose (UA) NEG (NEG) MG/DL Urine Ketones NEG (NEG) MG/DL Urine Blood 3+ H (NEG) Urine Nitrite POS H (NEG) Ur Leukocyte Esterase 3+ H (NEG) Urine RBC 5-9 H (0) /HPF Urine WBC TNTC H (0-4) /HPF Ur Squamous Epith Cells NONE /LPF Urine Bacteria 2+ /LPF COVID-19 (FRANCY) Negative (Negative) COVID-19 Clin Com See Note 10/17/21 10/17/21 Range/Units 14:29 15:41 WBC (4.8-10.8) X10*3/uL RBC (4.60-5.80) X10*6/uL Hgb (14.0-18.0) g/dl Hct (42.0-52.0) % MCV (80.0-98.0) fL MCH (27.0-33.0) pg MCHC (31.0-36.0) g/dl RDW (11.0-16.0) % Plt Count (160-400) X10*3/uL MPV (9.4-12.4) fL Immature Gran % (Auto) (0.0-0.4) % Neut % (Auto) (45-73) % Lymph % (Auto) (20-40) % Crenshaw % (Auto) (2-11) % Eos % (Auto) (0-4) % Baso % (Auto) (0-2) % Lymph # (Auto) (1.2-4.9) X10*3/uL Crenshaw # (Auto) (0.1-1.2) X10*3/uL Eos # (Auto) (0.0-0.4) X10*3/uL Baso # (Auto) (0.0-0.2) X10*3/uL Abs Immat Gran (auto) (0.00-0.03) X10*3/uL Absolute Neuts (auto) (2.0-8.3) x10*3/uL Absolute Nucleated RBC (0.0-0.012) X10*3/uL Nucleated RBC % (auto) (0.0-0.2) /100WBC Sodium 142 (135-145) mmol/L Potassium 3.2 L D (3.3-5.1) mmol/L Chloride 103 (96-108) mmol/L Carbon Dioxide 30 H (22-29) mmol/L Anion Gap 12 (12-20) BUN 21 H (9-16) mg/dL Creatinine 0.91 (0.5-1.4) mg/dL Estim Creat Clear Calc 78.3 Estimated GFR > 60 Random Glucose 87 (60-115) mg/dL Lactic Acid 2.0 (0.5-2.0) mmol/L Calcium 9.4 (8.4-10.2) mg/dL Total Bilirubin 0.7 (0.0-1.0) mg/dL AST 19 D (5-37) U/L ALT 30 (0-40) U/L Alkaline Phosphatase 75 D (39-117) U/L Total Protein 6.9 (6.5-8.0) g/dL Albumin 4.1 D (3.5-5.0) g/dL Urine Color Urine Appearance Urine pH (5.0-8.0) Ur Specific [place] (1.005-1.025) Urine Protein (NEG-TRACE) MG/DL Urine Glucose (UA) (NEG) MG/DL Urine Ketones (NEG) MG/DL Urine Blood (NEG) Urine Nitrite (NEG) Ur Leukocyte Esterase (NEG) Urine RBC (0) /HPF Urine WBC (0-4) /HPF Ur Squamous Epith Cells /LPF Urine Bacteria /LPF COVID-19 (FRANCY) (Negative) COVID-19 Clin Com <OUMOU Cota - Last Filed: 10/24/21 17:43> Discharge Plan Discharge Clinical Impression: Acute UTI <OUMOU Lay - Last Filed: 10/17/21 17:40> Patient Disposition: Home, Self-Care <OUMOU Lay - Last Filed: 10/17/21 17:40> Instructions: Urinary Tract Infection in Men (ED) <OUMOU Lay - Last Filed: 10/17/21 17:40> Additional Instructions: return to the ED immediately for any fever, altered mental status, blood in Bean/urine, flank pain, abdominal pain, nausea, vomiting, or any other concerning symptoms. <OUMOU Lay - Last Filed: 10/17/21 17:40> Prescriptions: New cefpodoxime 100 mg tablet 100 mg PO BID 7 Days Qty: 14 0RF Rx Instructions: must administer with a meal/food No Action atorvastatin 10 mg tablet 1 tab PO DAILY donepezil 10 mg tablet 1 tab PO DAILY sertraline 100 mg tablet 1 tab PO DAILY prednisone 5 mg tablet 1 tab PO DAILY@1700 midodrine 5 mg tablet 1 tab PO TID tamsulosin 0.4 mg capsule 1 cap PO DAILY gabapentin 300 mg capsule 1 cap PO BID omeprazole 20 mg capsule,delayed release(DR/EC) 1 cap PO DAILY sertraline 50 mg tablet 1 tab PO DAILY risperidone 1 mg tablet 1 tab PO BEDTIME memantine 5 mg tablet 1 tab PO BID multivitamin Tablet 1 tab PO DAILY prednisone 10 mg tablet 1 tab PO DAILY melatonin 3 mg Tablet 3 mg PO BEDTIME PRN (Reason: Insomnia) albuterol sulfate 90 mcg/actuation Hfa Aerosol Inhaler 2 puff INHALATION Q4-6H PRN (Reason: Wheezing) risperidone [Risperdal] 0.5 mg Tablet 0.75 mg PO DAILY guaifenesin [Mucinex] 600 mg Tablet Extended Release 12hr 600 mg PO Q6H PRN (Reason: phlegm) cyanocobalamin (vitamin B-12) 1,000 mcg Capsule 1,000 mcg PO DAILY Senna Plus 8.6-50 mg Capsule 1 tab-cap PO BID PRN (Reason: Constipation) aspirin 81 mg Capsule 81 mg PO DAILY cefuroxime axetil 250 mg Tablet 500 mg PO Q12H 5 Days Qty: 0 0RF <OUMOU Lay - Last Filed: 10/17/21 17:40> Interventions: ED Discharge Assessment Last Done: 10/17/21 20:12 <OUMOU Lay - Last Filed: 10/17/21 17:40> Discharge Date/Time: 10/17/21 20:13 <OUMOU Lay - Last Filed: 10/17/21 17:40> Print Language: Romanian <OUMOU Lay - Last Filed: 10/17/21 17:40>
[2021-10-17 14:39] LABS: MANUAL DIFF FLAG NO
[2021-10-17 14:43] LABS: Basophils Percent Auto 0.3 % (0-2); Eosinophils Absolute Auto 0.1 X10*3/uL (0.0-0.4); Eosinophils Percent Auto 0.7 % (0-4); Hematocrit 43.7 % (42.0-52.0); Hemoglobin 14.2 g/dl (14.0-18.0); Imm Gran Abs Auto 0.06 X10*3/uL (0.00-0.03); Imm Gran Pct Auto 0.4 % (0.0-0.4); Lymphocytes Percent Auto 13.2 % (20-40); Mean Corpuscular HGB Conc 32.5 g/dl (31.0-36.0); Mean Corpuscular Hemoglobin 31.7 pg (27.0-33.0); Mean Corpuscular Volume 97.5 fL (80.0-98.0); Mean Platelet Volume 10.1 fL (9.4-12.4); Monocytes Absolute Auto 0.9 X10*3/uL (0.1-1.2); Monocytes Percent Auto 5.8 % (2-11); Neutrophils Absolute Auto 11.7 x10*3/uL (2.0-8.3); Neutrophils Percent Auto 79.6 % (45-73); Platelet Count 273 X10*3/uL (160-400); Red Blood Count 4.48 X10*6/uL (4.60-5.80); Red Cell Distribution Width 13.7 % (11.0-16.0); White Blood Count 14.7 X10*3/uL (4.8-10.8)
[2021-10-17 14:47] LABS: Appearance Urine TURBID; Color Urine YELLOW; Glucose Urine UA NEG (NEG); Leukocyte Esterase Urine 3+ (NEG); Nitrite Urine POS (NEG); PH 7.5 (5.0-8.0); Specific Gravity - Urine 1.015 (1.005-1.025); UACC Culture Trigger YES; Urine Blood 3+ (NEG); Urine Ketones NEG (NEG); Urine Protein 2+ MG/DL (NEG-TRACE)
[2021-10-17 14:55] LABS: Bacteria Urine 2+ /LPF; WBC Urine TNTC /HPF (0-4)
[2021-10-17 14:57] LABS: COVID-19 Test Negative (Negative); IDNOW Serial# 16C4AD1C
[2021-10-17 15:48] LABS: Alanine Aminotransferase 30 U/L (0-40); Albumin Level 4.1 g/dL (3.5-5.0); Alkaline Phosphatase 75 U/L (39-117); Anion Gap 12 (12-20); Aspartate Amino Transferase 19 U/L (5-37); Bilirubin Total 0.7 mg/dL (0.0-1.0); Blood Urea Nitrogen 21 mg/dL (9-16); Calcium 9.4 mg/dL (8.4-10.2); Carbon Dioxide 30 mmol/L (22-29); Chloride 103 mmol/L (96-108); Creatinine Clr Calc Pharmacy 78.3; Estimated Glomerular Filt Rate > 60; Glucose Random 87 mg/dL (60-115); Potassium 3.2 mmol/L (3.3-5.1); Sodium 142 mmol/L (135-145); Total Protein 6.9 g/dL (6.5-8.0)
--- NOTE | 2021-10-17 16:18 | PC.NURSE ---
Pt resting comfortably. Denies pain or discomfort s/p bean insertion.
[2021-10-17] MEDS: Potassium Chloride Packet 20 MEQ PACKET 40 MEQ PO (16:24)
[2021-10-17 16:26] VITALS: BP 92/71; PULSE 74; RESP 16; O2SAT 95
--- NOTE | 2021-10-17 18:10 | PC.NURSE ---
Addendum entered by Malathi Luo 10/17/21 18:16: This RN on hold for RN to RN x 2 for 10 min, did not give report Original Note: Updated daughter Dileep Ochoa notified and RN to RN completed
== END 2021-10-17 20:13 | disposition home or self-care (01) ==
LOC: HO.ED 19:11
PROVIDERS: Physician Assistant; Emergency Provider Emergency Medicine
DX: N39.0 Urinary tract infection, site not specified (principal); R10.30 Lower abdominal pain, unspecified; Z20.822 Contact with and (suspected) exposure to COVID-19; E78.5 Hyperlipidemia, unspecified; F17.200 Nicotine dependence, unspecified, uncomplicated; Z46.0 Encounter for fitting and adjustment of spectacles and contact lenses
CPT/HCPCS: 36415; 51702; 80053; 81001; 83605; 85025; 87040; 87077; 87086; 87186; 87205; 87635; 99284

== ENCOUNTER 2022-02-09 10:56 | Emergency (ER) | payer MEDICARE, SELFPAY ==
[2022-02-09 11:04] VITALS: BP 119/56; PULSE 100; RESP 18; TEMP 36.8; O2SAT 96; BMI 23.7
--- NOTE | 2022-02-09 11:15 | ED_ITS ---
HPI - Male Genitourinary General Chief complaint: Urogenital-Male Stated complaint: ABD PAIN,F/C ISSUE FROM SNF PER EMS Time Seen by Provider: 02/09/22 11:06 Source: patient and EMS Mode of arrival: EMS History of Present Illness HPI Narrative: 71-year-old male with a past medical history of dementia, myasthenia gravis s/p thymectomy, COPD, BPH, presenting to the ED from [facility] for urinary retention since this morning. Patient reports abdominal discomfort. Gross hematuria noted in Arroyo bag. Patient on ASA. Denies fever, chills, nausea, vomiting, dysuria/hematuria, flank pain. Onset (ago): hour(s) Related Data Home Medications Medication Instructions Recorded Confirmed albuterol sulfate 90 mcg/actuation 2 puff inhalation Q4-6H PRN 07/16/21 07/16/21 aerosol inhaler Wheezing aspirin 81 mg capsule 81 mg PO DAILY 07/16/21 07/16/21 atorvastatin 10 mg tablet 1 tab PO DAILY 07/16/21 07/16/21 cyanocobalamin (vitamin B-12) 1,000 mcg PO DAILY 07/16/21 07/16/21 1,000 mcg capsule donepezil 10 mg tablet 1 tab PO DAILY 07/16/21 07/16/21 gabapentin 300 mg capsule 1 cap PO BID 07/16/21 07/16/21 guaifenesin 600 mg tablet, 600 mg PO Q6H PRN phlegm 07/16/21 07/16/21 extended release 12 hr (Mucinex) melatonin 3 mg tablet 3 mg PO BEDTIME PRN Insomnia 07/16/21 07/16/21 memantine 5 mg tablet 1 tab PO BID 07/16/21 07/16/21 midodrine 5 mg tablet 1 tab PO TID 07/16/21 07/16/21 multivitamin 1 tab PO DAILY 07/16/21 07/16/21 omeprazole 20 mg capsule,delayed 1 cap PO DAILY 07/16/21 07/16/21 release prednisone 10 mg tablet 1 tab PO DAILY 07/16/21 07/16/21 prednisone 5 mg tablet 1 tab PO DAILY@1700 07/16/21 07/16/21 risperidone 0.5 mg tablet 0.75 mg PO DAILY 07/16/21 07/16/21 (Risperdal) risperidone 1 mg tablet 1 tab PO BEDTIME 07/16/21 07/16/21 sennosides 8.6 mg-docusate sodium 1 tab-cap PO BID PRN Constipation 07/16/21 07/16/21 50 mg capsule (Senna Plus) sertraline 100 mg tablet 1 tab PO DAILY 07/16/21 07/16/21 sertraline 50 mg tablet 1 tab PO DAILY 07/16/21 07/16/21 tamsulosin 0.4 mg capsule 1 cap PO DAILY 07/16/21 07/16/21 Previous Rx's Medication Instructions Recorded cefuroxime axetil 250 mg tablet 500 mg PO Q12H 5 days #0 tabs 07/19/21 cefpodoxime 100 mg tablet 100 mg PO BID 7 days #14 tabs 10/17/21 cefpodoxime 200 mg tablet 200 mg PO BID 10 days #20 tabs 02/09/22 Allergies Allergy/AdvReac Type Severity Reaction Status Date / Time bacitracin Allergy Unknown Verified 07/16/21 12:22 [From Neosporin ([id number])] iodine Allergy Unknown Verified 07/16/21 12:22 neomycin Allergy Unknown Verified 07/16/21 12:22 [From Neosporin ([id number])] polymyxin B Allergy Unknown Verified 07/16/21 12:22 [From Neosporin ([id number])] Review of Systems Review of Systems: Constitutional: No Fever, No Chills, No Fatigue, No Malaise ENT/Mouth: No Ear Pain, No Nasal Congestion, No sore throat, No Rhinorrhea, No Swallowing Difficulty Eyes: No Eye Pain, No Swelling, No Redness, No Vision Changes Cardiovascular: No Chest Pain, No SOB, No Edema, No Palpitations Respiratory: No Cough, No Dyspnea Gastrointestinal: No Nausea, No Vomiting, No Diarrhea, No Constipation, + Abdominal pain Genitourinary: No irregular bleeding, No Dysuria, No Urinary Frequency, + Hematuria, No Urinary Incontinence/+urinary retention, No Urgency, No Flank Pain Musculoskeletal: No joint pain, No Myalgias, No Joint Swelling Skin: No Skin Lesions, No rash Neuro: No Weakness, No Dizziness, No Headache Yes all other systems are reviewed and are negative Constitutional: Constitutional: Reports as per [facility] Past Medical History Attestation statement: The following information was validated with the patient. Medical History BPH (benign prostatic hyperplasia) Compression fx, lumbar spine Compression fx, thoracic spine Constipation Dementia Dementia Depression GERD (gastroesophageal reflux disease) High cholesterol Myasthenia gravis Urinary retention Surgical History H/O thymectomy Social History Social History Household Members: Other Housing: Intermediate Housing Other:: [facility] Alcohol intake: never Patient Tobacco Use Status: Current someday Tobacco user Advance Directives: Yes Advance Directives on File: Yes Advance Directives Date on File: 07/17/21 Physical Exam Vital Signs: Vital Signs: Last Vital Signs Temp 98.3 F 02/09/22 11:04 Pulse 100 02/09/22 11:04 Resp 18 02/09/22 11:04 BP 119/56 L 02/09/22 11:04 Pulse Ox 96 02/09/22 11:04 O2 Del Method 02/09/22 11:04 BMI result Body Mass Index 23.7 Const: General: cooperative, no acute distress and anxious Limitations: no limitations HEENT: Head: Yes normal to inspection and Yes atraumatic Ears: hearing grossly normal bilaterally General nose exam: Normal external nose present Face and sinus: Yes normal facial exam Eyes: General: appearance normal, both eyes and all related structures EOM: EOMs intact bilaterally Neck: Neck: Yes normal visual inspection and Yes no meningeal signs Resp: Effort & Inspection: normal respiratory effort and no respiratory distress Auscultation: clear to auscultation bilaterally Cardio: Rate: regular rate Heart sounds: S1 normal heart sound present and S2 normal heart sound present GI: Inspection: Yes normal to inspection Palpation (GI): Soft to palpation, Tenderness to palpation present (GI) suprapubicly; with no rebound tenderness, no guarding and not rigid : General: Yes no CVA tenderness Back/Spine/Pelvis: Back: no CVA tenderness Skin: Rashes: no rashes Wounds: no wounds Neuro: General: tone normal and no meningeal signs Gait exam (Neuro): Normal gait present Extrem: General: Yes normal to inspection Course Course Course Narrative: -1159--no leukocytosis. UA infected > given 1 g IV Rocephin -1216--BUN mildly elevated (acute on chronic). Labs otherwise reassuring > patient to be discharged back to [facility] MDM - Male Genitourinary MDM Narrative Medical decision making narrative: 71-year-old male with a past medical history of dementia, myasthenia gravis s/p thymectomy, COPD, BPH, presenting to the ED from [facility] for urinary retention since this morning. On exam vital signs stable, anxious, appears uncomfortable, abdomen soft with suprapubic tenderness. Gross hematuria noted in Arroyo bag. 521 cc on bladder scan. Arroyo adjusted & appeared to not be in the correct location, changed with immediate 500 cc output of clear urine, no gross hematuria. Concern for in correct positioning vs UTI. Lower suspicion for ÓSCAR/pyelo or renal stone Plan: UA, labs Differential Diagnosis Differential diagnosis: Likely urinary tract infection and acute retention of urine Medical Records Attestation: I reviewed the patient's medical records. Lab Data Attestation: I reviewed the patient's lab results. Discharge Plan Discharge Clinical Impression: Acute urinary retention, Acute UTI Patient Disposition: [facility] Transfer Details: BACK TO [facility] WITH [facility] Instructions: Urinary Retention in Men (ED), Arroyo Catheter Placement and Care (ED) Additional Instructions: You had urinary retention due to your catheter not be in the correct location, however you do have a urinary tract infection Cefpodoxime as an antibiotic please take as prescribed If you develop abdominal pain, fever, nausea or vomiting, or blood in her Arroyo catheter return to the emergency department Prescriptions: New cefpodoxime 200 mg tablet 200 mg PO BID 10 Days Qty: 20 0RF Rx Instructions: must administer with a meal/food No Action atorvastatin 10 mg tablet 1 tab PO DAILY donepezil 10 mg tablet 1 tab PO DAILY sertraline 100 mg tablet 1 tab PO DAILY prednisone 5 mg tablet 1 tab PO DAILY@1700 midodrine 5 mg tablet 1 tab PO TID tamsulosin 0.4 mg capsule 1 cap PO DAILY gabapentin 300 mg capsule 1 cap PO BID omeprazole 20 mg capsule,delayed release(DR/EC) 1 cap PO DAILY sertraline 50 mg tablet 1 tab PO DAILY risperidone 1 mg tablet 1 tab PO BEDTIME memantine 5 mg tablet 1 tab PO BID multivitamin Tablet 1 tab PO DAILY prednisone 10 mg tablet 1 tab PO DAILY melatonin 3 mg Tablet 3 mg PO BEDTIME PRN (Reason: Insomnia) albuterol sulfate 90 mcg/actuation Hfa Aerosol Inhaler 2 puff INHALATION Q4-6H PRN (Reason: Wheezing) risperidone [Risperdal] 0.5 mg Tablet 0.75 mg PO DAILY guaifenesin [Mucinex] 600 mg Tablet Extended Release 12hr 600 mg PO Q6H PRN (Reason: phlegm) cyanocobalamin (vitamin B-12) 1,000 mcg Capsule 1,000 mcg PO DAILY Senna Plus 8.6-50 mg Capsule 1 tab-cap PO BID PRN (Reason: Constipation) aspirin 81 mg Capsule 81 mg PO DAILY cefuroxime axetil 250 mg Tablet 500 mg PO Q12H 5 Days Qty: 0 0RF cefpodoxime 100 mg tablet 100 mg PO BID 7 Days Qty: 14 0RF Rx Instructions: must administer with a meal/food Referrals: MARCELA SALGADO [Primary Care Provider] - 3 days
--- NOTE | 2022-02-09 11:29 | PC.NURSE ---
NEW CATH PLACED D/T CURRENT CATH NOT EVEN INDWELLING UPON ARRIVAL. 18 JULES PLACED WITH NO INCIDENT. 500 PRE PLACEMENT ON BLADDER SCAN. 500 OUTPUT NOTED. DARK YELLOW CLEAR URINE. PT REPORTS MUCH RELIEF.
[2022-02-09 11:36] LABS: MANUAL DIFF FLAG NO
[2022-02-09 11:38] LABS: Basophils Percent Auto 0.4 % (0-2); Eosinophils Absolute Auto 0.1 X10*3/uL (0.0-0.4); Eosinophils Percent Auto 1.2 % (0-4); Hematocrit 39.8 % (42.0-52.0); Imm Gran Abs Auto 0.04 X10*3/uL (0.00-0.03); Imm Gran Pct Auto 0.4 % (0.0-0.4); Lymphocytes Absolute Auto 1.1 X10*3/uL (1.2-4.9); Lymphocytes Percent Auto 10.8 % (20-40); Mean Corpuscular HGB Conc 32.7 g/dl (31.0-36.0); Mean Corpuscular Hemoglobin 31.5 pg (27.0-33.0); Mean Corpuscular Volume 96.4 fL (80.0-98.0); Mean Platelet Volume 9.8 fL (9.4-12.4); Monocytes Absolute Auto 0.7 X10*3/uL (0.1-1.2); Monocytes Percent Auto 7.1 % (2-11); Neutrophils Absolute Auto 8.3 x10*3/uL (2.0-8.3); Neutrophils Percent Auto 80.1 % (45-73); Platelet Count 238 X10*3/uL (160-400); Red Blood Count 4.13 X10*6/uL (4.60-5.80); Red Cell Distribution Width 14.6 % (11.0-16.0); White Blood Count 10.3 X10*3/uL (4.8-10.8)
[2022-02-09 11:39] LABS: Appearance Urine Cloudy; Color Urine Yellow; Glucose Urine UA Negative (Negative); Leukocyte Esterase Urine Moderate (2+) (Negative); Nitrite Urine Positive (Negative); PH 5.5 (5.0-9.0); Specific Gravity - Urine 1.015 (1.005-1.025); UMIC TRIGGER UACC YES; Urine Blood Large (3+) (Negative); Urine Ketones Negative (Negative); Urine Protein 30 (1+) mg/dL (Neg-Trace)
[2022-02-09 11:44] LABS: Bacteria Urine 4+ (None Seen); Hyaline Casts Urine 0-2 /LPF (0-2); RBC Urine >20 /HPF (0-2); Squamous Epithelial Cell Urine 0-2 /HPF (0-2); UACC Culture Trigger YES; WBC Urine >50 /HPF (0-5)
[2022-02-09 11:45] LABS: INTERNATIONAL NORM RATIO 1.1 (0.9-1.1); Prothrombin Time 12.3 SEC (10.0-13.1)
[2022-02-09 11:59] LABS: Alanine Aminotransferase 23 U/L (0-40); Alkaline Phosphatase 71 U/L (39-117); Anion Gap 17 (12-20); Aspartate Amino Transferase 18 U/L (5-37); Bilirubin Direct 0.3 mg/dL (0.0-0.5); Bilirubin Total 0.7 mg/dL (0.0-1.0); Blood Urea Nitrogen 23 mg/dL (9-16); Carbon Dioxide 28 mmol/L (22-29); Chloride 100 mmol/L (96-108); Creatinine Clr Calc Pharmacy 90.5; Estimated Glomerular Filt Rate > 60; Glucose Random 132 mg/dL (60-115); Potassium 3.6 mmol/L (3.3-5.1); Sodium 141 mmol/L (135-145); Total Protein 6.4 g/dL (6.5-8.0)
[2022-02-09] MEDS: cefTRIAXone sodium 1 GM in 0.9 % Sodium Chloride 50 ML IV (12:10)
[2022-02-09 12:56] LABS: Albumin Level 3.7 g/dL (3.5-5.0)
--- NOTE | 2022-02-09 14:31 | PHA.MEDREC ---
Pharmacy Consult ? Medication Reconciliation Pharmacy has completed the medication reconciliation. Used list printed by andres michaels with [employer].
== END 2022-02-09 16:20 | disposition skilled nursing facility (03) ==
PROVIDERS: Physician Assistant; Emergency Provider Emergency Medicine Emergency Medical Services; PCP Emergency Medicine
DX: R33.9 Retention of urine, unspecified (principal); N39.0 Urinary tract infection, site not specified; Z79.899 Other long term (current) drug therapy; F17.200 Nicotine dependence, unspecified, uncomplicated; Z71.6 Tobacco abuse counseling
CPT/HCPCS: 36415; 51798; 80048; 80076; 81001; 85025; 85610; 87086; 96365; 99284; 99285; J0696

== ENCOUNTER 2022-06-01 09:05 | Inpatient (IN) | payer MEDICARE, SELFPAY ==
[2022-06-01] VITALS (7 sets, daily range): BP systolic 132–145; BP diastolic 80–87; PULSE 84–99; RESP 16–24; TEMP 36.7–37.1; O2SAT 90–95; BMI 26.8; BMI 26.4
--- NOTE | ~2022-06-01 | XR_ITS ---
EXAMINATION: XR CHEST CLINICAL INFORMATION: Shortness of breath. COMPARISON: 07/16/2021 chest radiograph. TECHNIQUE: Frontal view of the chest was obtained. FINDINGS: No significant abnormality is noted involving the heart, lungs, mediastinum, bony thorax or soft tissues. Multilevel sternotomy wires are intact. XR/XR chest 1V IMPRESSION: No acute cardiopulmonary process.
--- NOTE | 2022-06-01 09:24 | PC.NURSE ---
bean that was indwelling removed. 1cc out of balloon. new bean placed. pt tolerated well.
[2022-06-01 09:55] LABS: Appearance Urine Cloudy; Color Urine Dark Yellow; Glucose Urine UA Negative (Negative); Leukocyte Esterase Urine Large (3+) (Negative); Nitrite Urine Positive (Negative); PH 5.5 (5.0-9.0); UMIC TRIGGER UACC YES; Urine Blood Large (3+) (Negative); Urine Ketones Negative (Negative); Urine Protein 30 (1+) mg/dL (Neg-Trace)
--- NOTE | 2022-06-01 09:59 | ECG_ITS ---
Test Reason : sob Blood Pressure : / mmHG Vent. Rate : 090 BPM Atrial Rate : 090 BPM P-R Int : 148 ms QRS Dur : 080 ms QT Int : 362 ms P-R-T Axes : 051 028 059 degrees QTc Int : 442 ms Sinus rhythm with Premature atrial complexes Otherwise normal ECG No previous ECGs available Referred By: [place] Electronically Signed By:JUANITA MTZ
[2022-06-01 10:06] LABS: Bacteria Urine 4+ (None Seen); Hyaline Casts Urine 0-2 /LPF (0-2); Squamous Epithelial Cell Urine 0-2 /HPF (0-2); UACC Culture Trigger YES; WBC Urine >50 /HPF (0-5)
--- NOTE | 2022-06-01 10:20 | ED_ITS ---
HPI - General Adult General Chief complaint: General Medical Stated complaint: Distended abd, poss sepsis per EMS Time Seen by Provider: 06/01/22 09:21 Source: patient Mode of arrival: EMS Limitations: no limitations History of Present Illness HPI narrative: 71-year-old male presents for evaluation. Patient denies any complaints at this time. He does report that he is normally not on oxygen. Denies any chest pain, shortness of breath, cough or mucus production. He typically comes emergency department for Arroyo catheter related issues. He is unaware of her at been any acute issues. He denies any abdominal pain, back pain, fever, chills, sweats, dysuria, frequency, urgency, hematuria. There are no clear relieving or exacerbating features. Related Data Home Medications Medication Instructions Recorded Confirmed albuterol sulfate 90 mcg/actuation 2 puff inhalation Q4-6H PRN 07/16/21 02/09/22 aerosol inhaler Wheezing aspirin 81 mg capsule 81 mg PO DAILY 07/16/21 02/09/22 atorvastatin 10 mg tablet 1 tab PO BEDTIME 07/16/21 02/09/22 cyanocobalamin (vitamin B-12) 1,000 mcg PO DAILY 07/16/21 02/09/22 1,000 mcg capsule gabapentin 300 mg capsule 1 cap PO BID 07/16/21 02/09/22 guaifenesin 600 mg tablet, 600 mg PO Q6H PRN phlegm 07/16/21 02/09/22 extended release 12 hr (Mucinex) melatonin 3 mg tablet 3 mg PO BEDTIME PRN Insomnia 07/16/21 02/09/22 memantine 5 mg tablet 1 tab PO BID 07/16/21 02/09/22 midodrine 5 mg tablet 1 tab PO TID 07/16/21 02/09/22 multivitamin 1 tab PO DAILY 07/16/21 02/09/22 omeprazole 20 mg capsule,delayed 1 cap PO DAILY 07/16/21 02/09/22 release prednisone 10 mg tablet 1 tab PO DAILY 07/16/21 02/09/22 prednisone 5 mg tablet 1 tab PO DAILY@1700 07/16/21 02/09/22 risperidone 0.5 mg tablet 0.5 mg PO BEDTIME 07/16/21 02/09/22 (Risperdal) risperidone 1 mg tablet 0.5 tab PO DAILY 07/16/21 02/09/22 sennosides 8.6 mg-docusate sodium 1 tab-cap PO BID PRN Constipation 07/16/21 02/09/22 50 mg capsule (Senna Plus) sertraline 100 mg tablet 1 tab PO DAILY 07/16/21 02/09/22 sertraline 50 mg tablet 1 tab PO DAILY 07/16/21 02/09/22 bisacodyl 10 mg rectal suppository 10 mg VT DAILY PRN Constipation 02/09/22 02/09/22 simethicone 80 mg tablet 80 mg PO DAILY PRN Abdominal Pain 02/09/22 02/09/22 sodium phosphates 19 gram-7 118 ml VT BEDTIME PRN Constipation 02/09/22 02/09/22 gram/118 mL enema (Fleet Enema) Allergies Allergy/AdvReac Type Severity Reaction Status Date / Time bacitracin Allergy Unknown Verified 07/16/21 12:22 [From Neosporin ([id number])] iodine Allergy Unknown Verified 07/16/21 12:22 neomycin Allergy Unknown Verified 07/16/21 12:22 [From Neosporin ([id number])] polymyxin B Allergy Unknown Verified 07/16/21 12:22 [From Neosporin ([id number])] Review of Systems Review of Systems: CONSTITUTIONAL: Denies weight loss, fever and chills. HEENT: Denies changes in vision and hearing. RESPIRATORY: Denies SOB and cough. CV: Denies palpitations no CP. GI: Denies abdominal pain, nausea, vomiting and diarrhea. : Denies dysuria and urinary frequency. MSK: Denies myalgia and joint pain. SKIN: Denies rash and pruritus. NEUROLOGICAL: Denies headache and syncope. PSYCHIATRIC: Denies recent changes in mood. Denies anxiety and depression. All other ROS are negative unless in HPI PMFSH Past Medical History Medical History BPH (benign prostatic hyperplasia) Compression fx, lumbar spine Compression fx, thoracic spine Constipation Dementia Dementia Depression GERD (gastroesophageal reflux disease) High cholesterol Myasthenia gravis Urinary retention Surgical History H/O thymectomy Social History Social History Household Members: Other Housing: [facility] Housing Other:: [facility] Alcohol intake: never Patient Tobacco Use Status: Current someday Tobacco user Smoked in Last 30 Days: No Advance Directives: Yes Advance Directives on File: Yes Advance Directives Date on File: 07/17/21 Physical Exam ED Vital Signs: Vital Signs - 24 hr 06/01/22 09:15 06/01/22 10:22 06/01/22 12:11 Temperature 98.7 F Pulse Rate 99 84 94 Respiratory Rate 22 H 18 20 Blood Pressure 132/87 Pulse Oximetry 91 L Oxygen Delivery Method Room Air Oxygen Flow Rate 06/01/22 13:12 06/01/22 15:07 Temperature Pulse Rate 89 Respiratory Rate Blood Pressure Pulse Oximetry 94 93 Oxygen Delivery Method Nasal Cannula Nasal Cannula Oxygen Flow Rate 2 2 BMI result Body Mass Index 26.8 GEN: Well developed, no acute distress, alert, oriented HEENT: Normocephalic, atraumatic, normal external ears, nose appears normal, no oropharyngeal edema or exudates Eyes: Normal to appearance Neck: Supple, no lymphadenopathy Respiratory: Tachypneic, prolonged expiration, expiratory wheezes Cardiovascular: Regular rate and rhythm, no murmurs rubs or gallops Abdomen: Soft, nontender, nondistended, no guarding, no rebound Back: No CVA tenderness Extremities: No clubbing cyanosis or edema Neurologic: No focal neurologic deficits, cranial nerves 2-12 intact, strength is 5/5 bilaterally, gait normal Skin: No rash : Arroyo catheter in place Course Course Course Narrative: 71-year-old male presents for evaluation. On my evaluation, patient is tachypneic, hypoxic. He is conversant and alert. His abdomen was benign. A Arroyo catheter put in place. This was replaced upon arrival. At this time, will do workup for dyspnea. Will order chest x-ray, EKG, serology, blood work. Reevaluation(s) Reevaluation #1: Patient has a UTI. Ordering blood cultures and a lactic acid as well as ceftr iaxone. Patient still may be able to be discharged home depending on the remainder of the workup. Time: 10:28 Reevaluation #2: oxygen saturation on RA 94%. Waiting for second lactic Time: 13:48 Reevaluation #3: patient to be admitted Time: 15:48 Medications Administered Discontinued Medications Generic Name Dose Route Start Last Admin Trade Name Akil PRN Reason Stop Dose Admin Albuterol Sulfate 2.5 mg 06/01/22 09:59 06/01/22 10:22 Albuterol Sulfate (0.083%) 2.5 Mg/3 Ml Vial.Neb INHALE 06/01/22 10:00 2.5 mg ONCE ONE Administration Albuterol Sulfate 2.5 mg 06/01/22 11:55 06/01/22 12:11 Albuterol Sulfate (0.083%) 2.5 Mg/3 Ml Vial.Neb INHALE 06/01/22 11:56 2.5 mg ONCE ONE Administration Ceftriaxone Sodium 1 gm/ 50 mls @ 100 mls/hr 06/01/22 10:25 06/01/22 11:16 Sodium Chloride IV 06/01/22 10:54 Infused ONCE ONE Infusion Sodium Chloride 500 mls @ 500 mls/hr 06/01/22 12:00 06/01/22 12:59 Ns IV 06/01/22 12:59 Infused .Q1H BUTCH Infusion Sodium Chloride 1,000 mls @ 999 mls/hr 06/01/22 14:45 06/01/22 14:52 Ns IV 06/01/22 15:45 999 mls/hr .Q1H1M BUTCH Administration Medical Decision Making Medical Decision Making [facility] Narrative: 71-year-old male presents for evaluation. Upon my evaluation he was tachypneic, expiratory wheezes. Will give patient breathing treatment. Will order chest x- ray, check viral serology. Lungs not reveal any focal deficits. Doubt pneumonia, however, CHF, viral illness, anemia, asthma, reactive airway disease or possible diagnoses. Differential Diagnosis Differential Diagnoses: The differential diagnosis associated with the presentation includes (Pneumonia, CHF, bronchitis, viral syndrome, anemia, electrolyte abnormality, shortness of breath) Admission/Observation Consideration of admission/observation: Escalation of care including admission/observation considered Lab Data [facility] Lab Attestation statement: I reviewed the patient's lab results. 06/01/22 10:14 06/01/22 10:14 Labs: Lab Results 06/01/22 06/01/22 06/01/22 Range/Units 09:49 10:14 10:14 WBC 12.9 H (4.8-10.8) X10*3/uL RBC 3.91 L (4.60-5.80) X10*6/uL Hgb 13.0 L (14.0-18.0) g/dl Hct 39.3 L (42.0-52.0) % MCV 100.5 H (80.0-98.0) fL MCH 33.2 H (27.0-33.0) pg MCHC 33.1 (31.0-36.0) g/dl RDW 14.3 (11.0-16.0) % Plt Count 215 (160-400) X10*3/uL MPV 10.2 (9.4-12.4) fL Immature Gran % (Auto) 0.5 H (0.0-0.4) % Neut % (Auto) 84.3 H (45-73) % Lymph % (Auto) 7.1 L (20-40) % [place] % (Auto) 7.4 (2-11) % Eos % (Auto) 0.3 (0-4) % Baso % (Auto) 0.4 (0-2) % Lymph # (Auto) 0.9 L (1.2-4.9) X10*3/uL [place] # (Auto) 1.0 (0.1-1.2) X10*3/uL Eos # (Auto) 0.0 (0.0-0.4) X10*3/uL Baso # (Auto) 0.1 (0.0-0.2) X10*3/uL Abs Immat Gran (auto) 0.07 H (0.00-0.03) X10*3/uL Absolute Neuts (auto) 10.9 H (2.0-8.3) x10*3/uL Absolute Nucleated RBC 0.000 (0.0-0.012) X10*3/uL Nucleated RBC % (auto) 0.0 (0.0-0.2) /100WBC Sodium 146 H (135-145) mmol/L Potassium 3.5 (3.3-5.1) mmol/L Chloride 106 (96-108) mmol/L Carbon Dioxide 31 H (22-29) mmol/L Anion Gap 13 (12-20) BUN 23 H (9-16) mg/dL Creatinine 0.86 (0.5-1.4) mg/dL Estim Creat Clear Calc 89.0 Estimated GFR > 60 Random Glucose 106 (60-115) mg/dL Lactic Acid (0.5-2.0) mmol/L Lactic Acid F/U @ 2Hr (0.5-2.0) mmol/L Calcium 8.6 (8.4-10.2) mg/dL Troponin I High Sens (<3.5-35.0) ng/L Urine Color Dark Yellow Urine Appearance Cloudy Urine pH 5.5 (5.0-9.0) Ur Specific [place] 1.020 (1.005-1.025) Urine Protein 30 (1+) H (Neg-Trace) mg/dL Urine Glucose (UA) Negative (Negative) mg/dL Urine Ketones Negative (Negative) mg/dL Urine Blood Large (3+) H (Negative) Urine Nitrite Positive H (Negative) Ur Leukocyte Esterase Large (3+) H (Negative) Urine RBC 3-5 H (0-2) /HPF Urine WBC >50 H (0-5) /HPF Ur Squamous Epith Cells 0-2 (0-2) /HPF Urine Bacteria 4+ (None Seen) Hyaline Casts 0-2 (0-2) /LPF COVID-19 (FRANCY) (Negative) COVID-19 Clin Com Influenza Type A (SAVANA) (Negative) Influenza Type B (SAVANA) (Negative) Influenza A & B Note 06/01/22 06/01/22 06/01/22 Range/Units 10:14 10:14 10:14 WBC (4.8-10.8) X10*3/uL RBC (4.60-5.80) X10*6/uL Hgb (14.0-18.0) g/dl Hct (42.0-52.0) % MCV (80.0-98.0) fL MCH (27.0-33.0) pg MCHC (31.0-36.0) g/dl RDW (11.0-16.0) % Plt Count (160-400) X10*3/uL MPV (9.4-12.4) fL Immature Gran % (Auto) (0.0-0.4) % Neut % (Auto) (45-73) % Lymph % (Auto) (20-40) % [place] % (Auto) (2-11) % Eos % (Auto) (0-4) % Baso % (Auto) (0-2) % Lymph # (Auto) (1.2-4.9) X10*3/uL [place] # (Auto) (0.1-1.2) X10*3/uL Eos # (Auto) (0.0-0.4) X10*3/uL Baso # (Auto) (0.0-0.2) X10*3/uL Abs Immat Gran (auto) (0.00-0.03) X10*3/uL Absolute Neuts (auto) (2.0-8.3) x10*3/uL Absolute Nucleated RBC (0.0-0.012) X10*3/uL Nucleated RBC % (auto) (0.0-0.2) /100WBC Sodium (135-145) mmol/L Potassium (3.3-5.1) mmol/L Chloride (96-108) mmol/L Carbon Dioxide (22-29) mmol/L Anion Gap (12-20) BUN (9-16) mg/dL Creatinine (0.5-1.4) mg/dL Estim Creat Clear Calc Estimated GFR Random Glucose (60-115) mg/dL Lactic Acid (0.5-2.0) mmol/L Lactic Acid F/U @ 2Hr (0.5-2.0) mmol/L Calcium (8.4-10.2) mg/dL Troponin I High Sens 3.7 (<3.5-35.0) ng/L Urine Color Urine Appearance Urine pH (5.0-9.0) Ur Specific [place] (1.005-1.025) Urine Protein (Neg-Trace) mg/dL Urine Glucose (UA) (Negative) mg/dL Urine Ketones (Negative) mg/dL Urine Blood (Negative) Urine Nitrite (Negative) Ur Leukocyte Esterase (Negative) Urine RBC (0-2) /HPF Urine WBC (0-5) /HPF Ur Squamous Epith Cells (0-2) /HPF Urine Bacteria (None Seen) Hyaline Casts (0-2) /LPF COVID-19 (FRANCY) Negative (Negative) COVID-19 Clin Com See Note Influenza Type A (SAVANA) Negative (Negative) Influenza Type B (SAVANA) Negative (Negative) Influenza A & B Note See Note 06/01/22 06/01/22 Range/Units 10:44 13:39 WBC (4.8-10.8) X10*3/uL RBC (4.60-5.80) X10*6/uL Hgb (14.0-18.0) g/dl Hct (42.0-52.0) % MCV (80.0-98.0) fL MCH (27.0-33.0) pg MCHC (31.0-36.0) g/dl RDW (11.0-16.0) % Plt Count (160-400) X10*3/uL MPV (9.4-12.4) fL Immature Gran % (Auto) (0.0-0.4) % Neut % (Auto) (45-73) % Lymph % (Auto) (20-40) % [place] % (Auto) (2-11) % Eos % (Auto) (0-4) % Baso % (Auto) (0-2) % Lymph # (Auto) (1.2-4.9) X10*3/uL [place] # (Auto) (0.1-1.2) X10*3/uL Eos # (Auto) (0.0-0.4) X10*3/uL Baso # (Auto) (0.0-0.2) X10*3/uL Abs Immat Gran (auto) (0.00-0.03) X10*3/uL Absolute Neuts (auto) (2.0-8.3) x10*3/uL Absolute Nucleated RBC (0.0-0.012) X10*3/uL Nucleated RBC % (auto) (0.0-0.2) /100WBC Sodium (135-145) mmol/L Potassium (3.3-5.1) mmol/L Chloride (96-108) mmol/L Carbon Dioxide (22-29) mmol/L Anion Gap (12-20) BUN (9-16) mg/dL Creatinine (0.5-1.4) mg/dL Estim Creat Clear Calc Estimated GFR Random Glucose (60-115) mg/dL Lactic Acid 2.3 H* (0.5-2.0) mmol/L Lactic Acid F/U @ 2Hr 2.5 H* (0.5-2.0) mmol/L Calcium (8.4-10.2) mg/dL Troponin I High Sens (<3.5-35.0) ng/L Urine Color Urine Appearance Urine pH (5.0-9.0) Ur Specific [place] (1.005-1.025) Urine Protein (Neg-Trace) mg/dL Urine Glucose (UA) (Negative) mg/dL Urine Ketones (Negative) mg/dL Urine Blood (Negative) Urine Nitrite (Negative) Ur Leukocyte Esterase (Negative) Urine RBC (0-2) /HPF Urine WBC (0-5) /HPF Ur Squamous Epith Cells (0-2) /HPF Urine Bacteria (None Seen) Hyaline Casts (0-2) /LPF COVID-19 (FRANCY) (Negative) COVID-19 Clin Com Influenza Type A (SAVANA) (Negative) Influenza Type B (SAVANA) (Negative) Influenza A & B Note Independent Interpretation I performed an independent interpretation of an: EKG (Normal sinus rhythm heart rate 90, no acute ST elevations or depressions, normal intervals, Pac) and Plain X-Ray (Chest: No acute cardiopulmonary disease) External Record Review External record reviewed: Inpatient record (Discharge summary from June 2021) Discharge Plan Discharge Clinical Impression: Acute UTI, Dyspnea Patient Disposition: Admitted As Inpatient Prescriptions: No Action bisacodyl 10 mg Suppository 10 mg VT DAILY PRN (Reason: Constipation) Fleet Enema 19-7 gram/118 mL Enema 118 ml VT BEDTIME PRN (Reason: Constipation) simethicone 80 mg Tablet 80 mg PO DAILY PRN (Reason: Abdominal Pain) atorvastatin 10 mg tablet 1 tab PO BEDTIME sertraline 100 mg tablet 1 tab PO DAILY prednisone 5 mg tablet 1 tab PO DAILY@1700 midodrine 5 mg tablet 1 tab PO TID gabapentin 300 mg capsule 1 cap PO BID omeprazole 20 mg capsule,delayed release(DR/EC) 1 cap PO DAILY sertraline 50 mg tablet 1 tab PO DAILY risperidone 1 mg tablet 0.5 tab PO DAILY memantine 5 mg tablet 1 tab PO BID multivitamin Tablet 1 tab PO DAILY prednisone 10 mg tablet 1 tab PO DAILY melatonin 3 mg Tablet 3 mg PO BEDTIME PRN (Reason: Insomnia) albuterol sulfate 90 mcg/actuation Hfa Aerosol Inhaler 2 puff INHALATION Q4-6H PRN (Reason: Wheezing) risperidone [Risperdal] 0.5 mg Tablet 0.5 mg PO BEDTIME guaifenesin [Mucinex] 600 mg Tablet Extended Release 12hr 600 mg PO Q6H PRN (Reason: phlegm) cyanocobalamin (vitamin B-12) 1,000 mcg Capsule 1,000 mcg PO DAILY Senna Plus 8.6-50 mg Capsule 1 tab-cap PO BID PRN (Reason: Constipation) aspirin 81 mg Capsule 81 mg PO DAILY
[2022-06-01] MEDS: Albuterol Sulfate (0.083%) 2.5 MG/3 ML VIAL.NEB INHALE ×2 (10:22→12:11)
[2022-06-01 10:23] LABS: MANUAL DIFF FLAG NO
[2022-06-01 10:27] LABS: Basophils Absolute Auto 0.1 X10*3/uL (0.0-0.2); Basophils Percent Auto 0.4 % (0-2); Eosinophils Percent Auto 0.3 % (0-4); Hematocrit 39.3 % (42.0-52.0); Imm Gran Abs Auto 0.07 X10*3/uL (0.00-0.03); Imm Gran Pct Auto 0.5 % (0.0-0.4); Lymphocytes Absolute Auto 0.9 X10*3/uL (1.2-4.9); Lymphocytes Percent Auto 7.1 % (20-40); Mean Corpuscular HGB Conc 33.1 g/dl (31.0-36.0); Mean Corpuscular Hemoglobin 33.2 pg (27.0-33.0); Mean Corpuscular Volume 100.5 fL (80.0-98.0); Mean Platelet Volume 10.2 fL (9.4-12.4); Monocytes Percent Auto 7.4 % (2-11); Neutrophils Absolute Auto 10.9 x10*3/uL (2.0-8.3); Neutrophils Percent Auto 84.3 % (45-73); Platelet Count 215 X10*3/uL (160-400); Red Blood Count 3.91 X10*6/uL (4.60-5.80); Red Cell Distribution Width 14.3 % (11.0-16.0); White Blood Count 12.9 X10*3/uL (4.8-10.8)
[2022-06-01 10:50] LABS: COVID-19 Test Negative (Negative); IDNOW Serial# 9DB6401D; IDNOW Serial# BCCEAD1C; Influenza A Negative (Negative); Influenza B2 Negative (Negative)
[2022-06-01] MEDS: cefTRIAXone sodium 1 GM in 0.9 % Sodium Chloride 50 ML IV (10:50)
[2022-06-01 10:56] LABS: Anion Gap 13 (12-20); Blood Urea Nitrogen 23 mg/dL (9-16); Calcium 8.6 mg/dL (8.4-10.2); Carbon Dioxide 31 mmol/L (22-29); Chloride 106 mmol/L (96-108); Estimated Glomerular Filt Rate > 60; Glucose Random 106 mg/dL (60-115); Potassium 3.5 mmol/L (3.3-5.1); Sodium 146 mmol/L (135-145)
[2022-06-01 11:07] LABS: Troponin-I High Sensitivity 3.7 ng/L (<3.5-35.0)
[2022-06-01 11:45] LABS: Lactic Acid 2.3 mmol/L (0.5-2.0)
[2022-06-01] MEDS: 0.9 % Sodium Chloride 500 ML IV (11:59)
[2022-06-01 12:48] LABS: Reflex Lactate? Lactic Acid Added
[2022-06-01 14:22] LABS: ~Lactic Acid-LAB USE ONLY 2.5 mmol/L (0.5-2.0)
[2022-06-01] MEDS: 0.9 % Sodium Chloride 1,000 ML 999 ML IV (14:52)
[2022-06-01 15:42] LABS: Reflex Lactate? 2 Y
--- NOTE | 2022-06-01 16:13 | P.HPHOSP_ITS ---
History of Present Illness Date of Service: 06/01/22 Attending physician on admission: Jake Harper Chief Complaint: Blocked Bean This is a 71-year-old male with documented history of dementia, myasthenia gravis, COPD, BPH was brought to the emergency department for evaluation of a blocked Bean catheter. In the emergency department he was also noted to be tachypneic. Bean catheter was changed, urinalysis was indicative of UTI. CXR showed no acute process. He received multiple breathing treatments and a dose of IV ceftriaxone. Lactic acid was 2.3, 2.5 and he received 1500 cc of NS. The decision was made to admit the patient for further management of UTI and dyspnea. The patient was unable to provide a reliable history. He denies any shortness of breath, cough, fever or abdominal pain. Review of Systems Review of Systems: Yes all other systems are reviewed and are negative Constitutional: Constitutional: Denies chills and Denies fever(s) Cardiovascular: Cardiovascular: Denies chest pain and Denies dyspnea Respiratory: Respiratory: Denies cough and Denies dyspnea [facility] Medical History BPH (benign prostatic hyperplasia) Compression fx, lumbar spine Compression fx, thoracic spine Constipation Dementia Dementia Depression GERD (gastroesophageal reflux disease) High cholesterol Myasthenia gravis Urinary retention Pertinent family history: reviewed, but patient unable to provide any family history Surgical History H/O thymectomy Social History Household Members: Other 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 Housing Other:: [facility] Alcohol intake: never Patient Tobacco Use Status: Tobacco use Unknown Smoked in Last 30 Days: No Advance Directives: Yes Advance Directives on File: Yes Advance Directives Date on File: 07/17/21 Meds Allergies Allergy/AdvReac Type Severity Reaction Status Date / Time bacitracin Allergy Unknown Verified 07/16/21 12:22 [From Neosporin ([id number])] iodine Allergy Unknown Verified 07/16/21 12:22 neomycin Allergy Unknown Verified 07/16/21 12:22 [From Neosporin ([id number])] polymyxin B Allergy Unknown Verified 07/16/21 12:22 [From Neosporin ([id number])] Active Medications: Current Medications Pharmacy Consult (Consult Rx Perform Med Rec) 1 each MISCELLANE ONCE PRN PRN Reason: Consult order Home Medications Medication Instructions Recorded Confirmed Last Taken Type albuterol sulfate 90 mcg/actuation 2 puff inhalation Q4H PRN 07/16/21 06/01/22 Unknown History aerosol inhaler Shortness Of Breath atorvastatin 10 mg tablet 1 tab PO BEDTIME 07/16/21 06/01/22 Unknown History cyanocobalamin (vitamin B-12) 1,000 mcg PO DAILY 07/16/21 06/01/22 Unknown History 1,000 mcg capsule gabapentin 300 mg capsule 1 cap PO BID 07/16/21 06/01/22 Unknown History guaifenesin 600 mg tablet, 600 mg PO Q6H PRN phlegm 07/16/21 06/01/22 Unknown History extended release 12 hr (Mucinex) melatonin 3 mg tablet 3 mg PO BEDTIME PRN Insomnia 07/16/21 06/01/22 Unknown History midodrine 5 mg tablet 1 tab PO TID 07/16/21 06/01/22 Unknown History multivitamin 1 tab PO DAILY 07/16/21 06/01/22 Unknown History omeprazole 20 mg capsule,delayed 1 cap PO DAILY@0630 07/16/21 06/01/22 Unknown History release prednisone 10 mg tablet 1 tab PO DAILY 07/16/21 06/01/22 Unknown History prednisone 5 mg tablet 1 tab PO DAILY@1700 07/16/21 06/01/22 Unknown History risperidone 0.5 mg tablet 0.5 mg PO BID 07/16/21 06/01/22 Unknown History (Risperdal) sertraline 100 mg tablet 1 tab PO BEDTIME 07/16/21 06/01/22 Unknown History sertraline 50 mg tablet 1 tab PO BEDTIME 07/16/21 06/01/22 Unknown History bisacodyl 10 mg rectal suppository 10 mg [place] DAILY PRN Constipation 02/09/22 06/01/22 Unknown History simethicone 80 mg tablet 80 mg PO Q3H PRN Indigestion 02/09/22 06/01/22 Unknown History sodium phosphates 19 gram-7 118 ml IL BEDTIME PRN Constipation 02/09/22 06/01/22 Unknown History gram/118 mL enema (Fleet Enema) acetaminophen 325 mg tablet 650 mg PO Q4H PRN Fever Or Pain 06/01/22 06/01/22 Unknown History albuterol sulfate 2.5 mg/3 mL 2.5 mg inhalation Q6H PRN Wheezing 06/01/22 06/01/22 Unknown History (0.083 %) solution for nebulization aspirin 81 mg tablet,delayed 81 mg PO DAILY 06/01/22 06/01/22 Unknown History release magnesium hydroxide 400 mg/5 mL 30 ml PO DAILY PRN Constipation 06/01/22 06/01/22 Unknown History oral suspension (Milk of Magnesia) sennosides 8.6 mg-docusate sodium 1 tab PO BID PRN Constipation 06/01/22 06/01/22 Unknown History 50 mg tablet (Senna Plus) Physical Exam Vital Signs and Narrative: Vital Signs: Last Vital Signs Temp 98.7 F 06/01/22 09:15 Pulse 89 06/01/22 15:07 Resp 20 06/01/22 12:11 BP 132/87 06/01/22 09:15 Pulse Ox 93 06/01/22 15:07 O2 Del Method 06/01/22 15:07 O2 Flow Rate 2 06/01/22 15:07 BMI result Body Mass Index 26.8 Const: Other: awake, alert, pleasantly confused General: cooperative, comfortable and no acute distress Orientation/consciousness: oriented to person Resp: Other: scattered expiratory wheezes Effort & Inspection: normal respiratory effort and able to speak in complete sentences Cardio: Rate: regular rate Heart sounds: S1 normal heart sound present and S2 normal heart sound present GI: Inspection: No distended Palpation (GI): Soft to palpation Neuro: Other: no focal deficits noted General: oriented to person Extrem: Other: above to move extremities spontaneously General: Yes no pedal edema Results Labs 06/01/22 10:14 06/01/22 10:14 Labs: Laboratory Results - last 24 hr 06/01/22 06/01/22 06/01/22 09:49 10:14 10:14 MCV 100.5 H MCH 33.2 H MCHC 33.1 RDW 14.3 Plt Count 215 MPV 10.2 Immature Gran % (Auto) 0.5 H Neut % (Auto) 84.3 H Lymph % (Auto) 7.1 L [place] % (Auto) 7.4 Eos % (Auto) 0.3 Baso % (Auto) 0.4 Lymph # (Auto) 0.9 L [place] # (Auto) 1.0 Eos # (Auto) 0.0 Baso # (Auto) 0.1 Abs Immat Gran (auto) 0.07 H Absolute Neuts (auto) 10.9 H Absolute Nucleated RBC 0.000 Nucleated RBC % (auto) 0.0 Anion Gap 13 Estim Creat Clear Calc 89.0 Estimated GFR > 60 Random Glucose 106 Lactic Acid Lactic Acid F/U @ 2Hr Calcium 8.6 Troponin I High Sens Urine Color Dark Yellow Urine Appearance Cloudy Urine pH 5.5 Ur Specific [place] 1.020 Urine Protein 30 (1+) H Urine Glucose (UA) Negative Urine Ketones Negative Urine Blood Large (3+) H Urine Nitrite Positive H Ur Leukocyte Esterase Large (3+) H Urine RBC 3-5 H Urine WBC >50 H Ur Squamous Epith Cells 0-2 Urine Bacteria 4+ Hyaline Casts 0-2 COVID-19 (FRANCY) COVID-19 Clin Com Influenza Type A (SAVANA) Influenza Type B (SAVANA) Influenza A & B Note 06/01/22 06/01/22 06/01/22 10:14 10:14 10:14 MCV MCH MCHC RDW Plt Count MPV Immature Gran % (Auto) Neut % (Auto) Lymph % (Auto) [place] % (Auto) Eos % (Auto) Baso % (Auto) Lymph # (Auto) [place] # (Auto) Eos # (Auto) Baso # (Auto) Abs Immat Gran (auto) Absolute Neuts (auto) Absolute Nucleated RBC Nucleated RBC % (auto) Anion Gap Estim Creat Clear Calc Estimated GFR Random Glucose Lactic Acid Lactic Acid F/U @ 2Hr Calcium Troponin I High Sens 3.7 Urine Color Urine Appearance Urine pH Ur Specific [place] Urine Protein Urine Glucose (UA) Urine Ketones Urine Blood Urine Nitrite Ur Leukocyte Esterase Urine RBC Urine WBC Ur Squamous Epith Cells Urine Bacteria Hyaline Casts COVID-19 (FRANCY) Negative COVID-19 Clin Com See Note Influenza Type A (SAVANA) Negative Influenza Type B (SAVANA) Negative Influenza A & B Note See Note 06/01/22 06/01/22 10:44 13:39 MCV MCH MCHC RDW Plt Count MPV Immature Gran % (Auto) Neut % (Auto) Lymph % (Auto) [place] % (Auto) Eos % (Auto) Baso % (Auto) Lymph # (Auto) [place] # (Auto) Eos # (Auto) Baso # (Auto) Abs Immat Gran (auto) Absolute Neuts (auto) Absolute Nucleated RBC Nucleated RBC % (auto) Anion Gap Estim Creat Clear Calc Estimated GFR Random Glucose Lactic Acid 2.3 H* Lactic Acid F/U @ 2Hr 2.5 H* Calcium Troponin I High Sens Urine Color Urine Appearance Urine pH Ur Specific [place] Urine Protein Urine Glucose (UA) Urine Ketones Urine Blood Urine Nitrite Ur Leukocyte Esterase Urine RBC Urine WBC Ur Squamous Epith Cells Urine Bacteria Hyaline Casts COVID-19 (FRANCY) COVID-19 Clin Com Influenza Type A (SAVANA) Influenza Type B (SAVANA) Influenza A & B Note Imaging Radiologist's Impressions: Impressions Chest X-Ray 06/01/22 10:55 IMPRESSION: No acute cardiopulmonary process. Assessment and Plan (1) Acute UTI: Status: Acute Plan This is a 71 year old male with history of dementia, MG, COPD, BPH, chronic indwelling bean who presents complaints of a blocked Bean found to have UTI Sepsis secondary to Acute UTI has chronic indwelling bean meets criteria with wbc 12.9, RR 22, HR 99; LA 2.5 Received fluid bolus Continue IV ceftriaxone Follow results of urine culture, blood cultures Acute hypoxic respiratory failure secondary to Acute COPD exacerbation CXR negative for PNA scheduled and P.r.n. breathing treatments systemic steroids wean oxygen as tolerated MG will be on steroids hold home prednisone presumed orthostatic hypotension continue midodrine mood continue baseline meds HLD continue statin dvt ppx - lovenox Code status - has DNR bracelet on Attending - Dr. Harper Attempted to call son for collateral info - no answer Time Spent With Patient Time: Total time managing care of this patient today ____ minutes. Quality Stroke Does the patient have a stroke diagnosis?: No VTE Prior VTE?: No VTE Risk Level:: Medical - moderate - high VTE Device Contraindication: N/A - Device Ordered VTE Drug Contraindication: N/A - Med Ordered
[2022-06-01 16:26] LABS: ~Lactic Acid-LAB USE ONLY 2.8 mmol/L (0.5-2.0)
--- NOTE | 2022-06-01 16:46 | PHA.MEDREC ---
Pharmacy Consult ? Medication Reconciliation Pharmacy has completed the medication reconciliation. Med rec completed using list from [facility]
[2022-06-01] MEDS: methylPREDNISolone Sod Succ 40 MG/ML VIAL IVPUSH (17:29)
[2022-06-01] MEDS: Enoxaparin Sodium 40 MG/0.4 ML SYRINGE SUBCUT (17:29)
[2022-06-01] MEDS: 0.9 % Sodium Chloride Flush 3 ML SYRINGE IVFLUSH (20:51)
[2022-06-01] MEDS: risperiDONE 0.5 MG TABLET PO (20:51)
[2022-06-01] MEDS: Sertraline HCL 50 MG TABLET PO (20:51)
[2022-06-01] MEDS: Atorvastatin Calcium 10 MG TABLET PO (20:52)
[2022-06-01] MEDS: Gabapentin 300 MG CAPSULE PO (20:52)
[2022-06-01] MEDS: Melatonin 3 MG TABLET PO (20:52)
[2022-06-01] MEDS: Sertraline HCL 100 MG TABLET PO (20:55)
[2022-06-02] VITALS (8 sets, daily range): BP systolic 119–131; BP diastolic 71–76; PULSE 62–98; RESP 16–24; TEMP 36.2–37.2; O2SAT 89–98
[2022-06-02 06:31] LABS: Hematocrit 33.8 % (42.0-52.0); Hemoglobin 11.2 g/dl (14.0-18.0); Mean Corpuscular HGB Conc 33.1 g/dl (31.0-36.0); Mean Corpuscular Hemoglobin 32.9 pg (27.0-33.0); Mean Corpuscular Volume 99.4 fL (80.0-98.0); Mean Platelet Volume 10.2 fL (9.4-12.4); Platelet Count 230 X10*3/uL (160-400); Red Cell Distribution Width 14.1 % (11.0-16.0)
[2022-06-02] MEDS: methylPREDNISolone Sod Succ 40 MG/ML VIAL IVPUSH ×2 (06:31→17:03)
[2022-06-02] MEDS: Omeprazole 20 MG CAPSULE.DR PO (06:33)
[2022-06-02 06:57] LABS: Blood Urea Nitrogen 20 mg/dL (9-16); Calcium 8.8 mg/dL (8.4-10.2); Creatinine Clr Calc Pharmacy 114.2; Estimated Glomerular Filt Rate > 60; Glucose Random 106 mg/dL (60-115)
[2022-06-02 07:20] LABS: Anion Gap 13 (12-20); Carbon Dioxide 28 mmol/L (22-29); Chloride 105 mmol/L (96-108); Potassium 4.5 mmol/L (3.3-5.1); Sodium 141 mmol/L (135-145)
[2022-06-02] MEDS: risperiDONE 0.5 MG TABLET PO ×2 (09:13→19:53)
[2022-06-02] MEDS: Aspirin Enteric Coated 81 MG TABLET.DR PO (09:13)
[2022-06-02] MEDS: Gabapentin 300 MG CAPSULE PO ×2 (09:13→19:52)
[2022-06-02] MEDS: 0.9 % Sodium Chloride Flush 3 ML SYRINGE IVFLUSH ×3 (09:14→19:53)
[2022-06-02] MEDS: Midodrine HCl 5 MG TABLET PO ×3 (09:14→17:03)
[2022-06-02] MEDS: cefTRIAXone sodium 1 GM in 0.9 % Sodium Chloride 50 ML IV (09:50)
--- NOTE | 2022-06-02 13:40 | P.PNIM_ITS ---
Subjective Subjective Date of Service: 06/02/22 Interval History: seen and examined this morning follow up for UTI, copd exacerbation awake, alert, denies sob no abdominal pain, nausea or vomiting pleasantly confused Constitutional Constitutional: Reports chills and Denies fever(s) Cardiovascular Cardiovascular: Denies chest pain Gastrointestinal Gastrointestinal: Denies abdominal pain Physical Exam Vital Signs: Vital Signs: Last Vital Signs Temp 97.7 F 06/02/22 10:47 Pulse 77 06/02/22 10:47 Resp 18 06/02/22 10:47 BP 119/71 06/02/22 10:47 Pulse Ox 93 06/02/22 10:47 O2 Del Method 06/02/22 10:47 O2 Flow Rate 1 06/02/22 10:47 BMI result Body Mass Index 26.4 Const: Other: awake, alert, pleasantly confused General: cooperative, comfortable and no acute distress Orientation/consciousness: oriented to person Resp: Other: scattered expiratory wheezes Effort & Inspection: normal respiratory effort and able to speak in complete sentences Cardio: Rate: regular rate Heart sounds: S1 normal heart sound present and S2 normal heart sound present GI: Inspection: No distended Palpation (GI): Soft to palpation Neuro: Other: no focal deficits noted General: oriented to person Extrem: Other: above to move extremities spontaneously General: Yes no pedal edema Objective Data Active Medications Acetaminophen (Acetaminophen 325 Mg Tablet) 650 mg PO Q6H PRN PRN Reason: Pain, Mild (Pain Scale 1-3) Aspirin (Aspirin Enteric Coated 81 Mg Tablet.) 81 mg PO DAILY [facility] Last Admin: 06/02/22 09:13 Dose: 81 mg Documented By: NUVIA Atorvastatin Calcium (Atorvastatin Calcium 10 Mg Tablet) 10 mg PO BEDTIME [facility] Last Admin: 06/01/22 20:52 Dose: 10 mg Documented By: ANNA Albuterol Sulfate 2.5 mg/ (Ipratropium [place] 0.5 mg) 0 mg INHALE RQ6H WHILE AWAKE [facility] Last Admin: 06/02/22 13:11 Dose: Not Given Documented By: NICK Non-Admin Reason: Patient Refused Docusate Sodium (Docusate Sodium 100 Mg Capsule) 100 mg PO DAILY PRN PRN Reason: Constipation Enoxaparin Sodium (Enoxaparin Sodium 40 Mg/0.4 Ml Syringe) 40 mg SUBCUT Q24H [facility] Last Admin: 06/01/22 17:29 Dose: 40 mg Documented By: WADE Gabapentin (Gabapentin 300 Mg Capsule) 300 mg PO BID [facility] Last Admin: 06/02/22 09:13 Dose: 300 mg Documented By: NUVIA Guaifenesin (Guaifenesin [place] 600 Mg Tab.Er.12h) 600 mg PO Q6H PRN PRN Reason: phlegm Ceftriaxone Sodium 1 gm/ (Sodium Chloride) 50 mls @ 100 mls/hr IV Q24H [facility] Last Infusion: 06/02/22 10:30 Dose: 0 mls/hr Documented By: NUVIA Levalbuterol HCl (Levalbuterol Hcl 1.25 Mg/0.5 Ml Vial.Neb) 1.25 mg INHALE Q4H PRN PRN Reason: shortness of breath/wheezing Magnesium Hydroxide (Milk Of Magnesia 30 Ml Oral.Susp) 30 ml PO DAILY PRN PRN Reason: Constipation Melatonin (Melatonin 3 Mg Tablet) 3 mg PO BEDTIME PRN PRN Reason: Insomnia Last Admin: 06/01/22 20:52 Dose: 3 mg Documented By: ANNA Methylprednisolone Sodium Succinate (Methylprednisolone Sod Succ 40 Mg/Ml Vial) 40 mg IVPUSH Q12H [facility] Last Admin: 06/02/22 06:31 Dose: 40 mg Documented By: ANNA Midodrine (Midodrine Hcl 5 Mg Tablet) 5 mg PO TIDWM [facility] Last Admin: 06/02/22 12:23 Dose: 5 mg Documented By: NUVIA Omeprazole (Omeprazole 20 Mg Capsule.) 20 mg PO DAILY@0630 [facility] Last Admin: 06/02/22 06:33 Dose: 20 mg Documented By: ANNA Pharmacy Consult (Consult Rx Perform Med Rec) 1 each MISCELLANE ONCE PRN PRN Reason: Consult order Risperidone (Risperidone 0.5 Mg Tablet) 0.5 mg PO BID [facility] Last Admin: 06/02/22 09:13 Dose: 0.5 mg Documented By: NUVIA Sertraline HCl (Sertraline Hcl 100 Mg Tablet) 100 mg PO BEDTIME [facility] Last Admin: 06/01/22 20:55 Dose: 100 mg Documented By: ANNA Sertraline HCl (Sertraline Hcl 50 Mg Tablet) 50 mg PO BEDTIME [facility] Last Admin: 06/01/22 20:51 Dose: 50 mg Documented By: ANNA Simethicone (Simethicone 80 Mg Tab.Chew) 80 mg PO Q3H PRN PRN Reason: Indigestion Sodium Chloride (0.9 % Sodium Chloride Flush 3 Ml Syringe) 3 ml IVFLUSH QSHIFT [facility] Last Admin: 06/02/22 09:14 Dose: 3 ml Documented By: NUVIA Labs 06/02/22 06:08 06/02/22 06:09 Labs: Laboratory Results - last 24 hr 06/01/22 06/01/22 06/02/22 13:39 15:52 06:08 MCV 99.4 H MCH 32.9 MCHC 33.1 RDW 14.1 Plt Count 230 MPV 10.2 Absolute Nucleated RBC 0.000 Nucleated RBC % (auto) 0.0 Anion Gap Estim Creat Clear Calc Estimated GFR Random Glucose Lactic Acid F/U @ 2Hr 2.5 H* Lactic Acid F/U @ 4Hr 2.8 H* Calcium 06/02/22 06:09 MCV MCH MCHC RDW Plt Count MPV Absolute Nucleated RBC Nucleated RBC % (auto) Anion Gap 13 Estim Creat Clear Calc 114.2 Estimated GFR > 60 Random Glucose 106 Lactic Acid F/U @ 2Hr Lactic Acid F/U @ 4Hr Calcium 8.8 Microbiology Microbiology Results: Microbiology 06/01/22 10:44 Blood Culture - Preliminary Blood - Venous No growth after 24 hours. 06/01/22 10:44 Blood Culture - Preliminary Blood - Venous No growth after 24 hours. 06/01/22 Unknown Urine Culture - Preliminary Urine Catheterized - Bean Catheter Culture in progress. Assessment and Plan (1) Acute UTI: Status: Acute Plan This is a 71 year old male with history of dementia, MG, COPD, BPH, chronic indwelling bean who presents complaints of a blocked Bean found to have UTI Sepsis secondary to Acute UTI has chronic indwelling bean meets criteria with wbc 12.9, RR 22, HR 99; LA 2.5 Received fluid bolus Continue IV ceftriaxone d#2 Follow results of urine culture Blood cultures negative x 24 hours Acute hypoxic respiratory failure secondary to Acute COPD exacerbation CXR negative for PNA scheduled and P.r.n. breathing treatments systemic steroids wean oxygen as tolerated MG will be on IV solu-medrol - hold home prednisone presumed orthostatic hypotension continue midodrine mood continue baseline meds HLD continue statin dvt ppx - lovenox Code status - has DNR bracelet on Attending - Dr. Kaiser Attempted to call son for collateral info - no answer Dispo - LTC resident at [facility] Time Spent With Patient Time: Total time managing care of this patient today ____ minutes. Quality Stroke Does the patient have a stroke diagnosis?: No VTE Prior VTE?: No VTE Risk Level:: Medical - moderate - high VTE Device Contraindication: N/A - Device Ordered VTE Drug Contraindication: N/A - Med Ordered
--- NOTE | 2022-06-02 15:09 | MHC.CM.PN ---
PATIENT IS IN FROM [facility]. CURRENTLY HE IS CONFUSED AND ASKS THIS GLOBE CHANGER HOW HE GOT HERE AND WHY HE IS HERE HE DOES HAVE HCP ON FILE AND VERIFIED. HE ASKS THAT IMM BE MAILED TO HIS SON, BAR. ADDRESS IS ON FILE AND IMM WILL BE MAILED. PLAN IS RETURN TO [facility] WHEN MEDICALLY CLEARED REFERRAL PLACED FOR FACILITY TO FOLLOW IMM 06/02 IN CHART
[2022-06-02] MEDS: Enoxaparin Sodium 40 MG/0.4 ML SYRINGE SUBCUT (17:03)
[2022-06-02] MEDS: Atorvastatin Calcium 10 MG TABLET PO (19:52)
[2022-06-02] MEDS: Melatonin 3 MG TABLET PO (19:53)
[2022-06-02] MEDS: Sertraline HCL 100 MG TABLET PO (19:53)
[2022-06-02] MEDS: Sertraline HCL 50 MG TABLET PO (19:53)
[2022-06-03 04:00] VITALS: BP 125/85; PULSE 65; RESP 18; TEMP 36.1; O2SAT 93
[2022-06-03] MEDS: methylPREDNISolone Sod Succ 40 MG/ML VIAL IVPUSH ×2 (06:04→17:12)
[2022-06-03] MEDS: Omeprazole 20 MG CAPSULE.DR PO (06:04)
[2022-06-03 07:32] VITALS: BP 109/72; PULSE 82; RESP 16; TEMP 36.6; O2SAT 95
[2022-06-03] MEDS: Aspirin Enteric Coated 81 MG TABLET.DR PO (08:44)
[2022-06-03] MEDS: Midodrine HCl 5 MG TABLET PO ×3 (08:44→17:12)
[2022-06-03] MEDS: risperiDONE 0.5 MG TABLET PO ×2 (08:44→20:21)
[2022-06-03] MEDS: 0.9 % Sodium Chloride Flush 3 ML SYRINGE IVFLUSH ×2 (08:45→20:20)
[2022-06-03] MEDS: Gabapentin 300 MG CAPSULE PO ×2 (08:45→20:20)
[2022-06-03] MEDS: cefTRIAXone sodium 1 GM in 0.9 % Sodium Chloride 50 ML IV (09:51)
[2022-06-03 10:00] VITALS: O2SAT 92
[2022-06-03 10:20] VITALS: O2SAT 90
--- NOTE | 2022-06-03 11:53 | HO.PM.IMPN ---
Subjective Subjective Date of Service: 06/03/22 Interval History: seen and examined this morning follow up for UTI, COPD exacerbation awake, alert, feeling well; knows he is in the hospital but confused to situation denies pain or shortness of breath Review of Systems Review of Systems: Yes all other systems are reviewed and are negative Constitutional Constitutional: Denies chills and Denies fever(s) Cardiovascular Cardiovascular: Denies chest pain, Denies palpitations and Denies dyspnea Respiratory Respiratory: Denies cough and Denies dyspnea Gastrointestinal Gastrointestinal: Denies abdominal pain, Denies nausea and Denies vomiting Endocrine Endocrine: Denies palpitations Physical Exam Vital Signs: Vital Signs: Last Vital Signs Temp 97.8 F 06/03/22 07:32 Pulse 82 06/03/22 07:32 Resp 16 06/03/22 07:32 BP 109/72 06/03/22 07:32 Pulse Ox 90 L 06/03/22 10:20 O2 Del Method 06/03/22 10:20 O2 Flow Rate 2 06/03/22 07:32 BMI result Body Mass Index 26.4 Const: Other: awake, alert, pleasantly confused upper extremity tremors, intermittent General: cooperative, comfortable and no acute distress Orientation/consciousness: oriented to person and oriented to place Resp: Other: decreased respiratory effort; no wheezing Effort & Inspection: able to speak in complete sentences Cardio: Rate: regular rate Heart sounds: S1 normal heart sound present and S2 normal heart sound present GI: Inspection: No distended Palpation (GI): Soft to palpation : Other: bean in place Neuro: Other: no focal deficits noted General: oriented to person and oriented to place Extrem: Other: above to move extremities spontaneously General: Yes no pedal edema Objective Data Active Medications Acetaminophen (Acetaminophen 325 Mg Tablet) 650 mg PO Q6H PRN PRN Reason: Pain, Mild (Pain Scale 1-3) Aspirin (Aspirin Enteric Coated 81 Mg Tablet.) 81 mg PO DAILY [facility] Last Admin: 06/03/22 08:44 Dose: 81 mg Documented By: ZENON Atorvastatin Calcium (Atorvastatin Calcium 10 Mg Tablet) 10 mg PO BEDTIME [facility] Last Admin: 06/02/22 19:52 Dose: 10 mg Documented By: GREGOR Albuterol Sulfate 2.5 mg/ (Ipratropium [place] 0.5 mg) 0 mg INHALE RQ6H WHILE AWAKE [facility] Last Admin: 06/03/22 08:17 Dose: Not Given Documented By: NICK Non-Admin Reason: Patient Asleep Docusate Sodium (Docusate Sodium 100 Mg Capsule) 100 mg PO DAILY PRN PRN Reason: Constipation Enoxaparin Sodium (Enoxaparin Sodium 40 Mg/0.4 Ml Syringe) 40 mg SUBCUT Q24H [facility] Last Admin: 06/02/22 17:03 Dose: 40 mg Documented By: GREGOR Gabapentin (Gabapentin 300 Mg Capsule) 300 mg PO BID [facility] Last Admin: 06/03/22 08:45 Dose: 300 mg Documented By: ZENON Guaifenesin (Guaifenesin [place] 600 Mg Tab.Er.12h) 600 mg PO Q6H PRN PRN Reason: phlegm Cefepime HCl 2 gm/ Sodium (Chloride) 50 mls @ 100 mls/hr IV Q8H [facility] Levalbuterol HCl (Levalbuterol Hcl 1.25 Mg/0.5 Ml Vial.Neb) 1.25 mg INHALE Q4H PRN PRN Reason: shortness of breath/wheezing Magnesium Hydroxide (Milk Of Magnesia 30 Ml Oral.Susp) 30 ml PO DAILY PRN PRN Reason: Constipation Melatonin (Melatonin 3 Mg Tablet) 3 mg PO BEDTIME PRN PRN Reason: Insomnia Last Admin: 06/02/22 19:53 Dose: 3 mg Documented By: GREGOR Methylprednisolone Sodium Succinate (Methylprednisolone Sod Succ 40 Mg/Ml Vial) 40 mg IVPUSH Q12H [facility] Last Admin: 06/03/22 06:04 Dose: 40 mg Documented By: GREGOR Midodrine (Midodrine Hcl 5 Mg Tablet) 5 mg PO TIDWM [facility] Last Admin: 06/03/22 08:44 Dose: 5 mg Documented By: ZENON Omeprazole (Omeprazole 20 Mg Capsule.) 20 mg PO DAILY@0630 [facility] Last Admin: 06/03/22 06:04 Dose: 20 mg Documented By: GREGOR Pharmacy Consult (Consult Rx Perform Med Rec) 1 each MISCELLANE ONCE PRN PRN Reason: Consult order Risperidone (Risperidone 0.5 Mg Tablet) 0.5 mg PO BID [facility] Last Admin: 06/03/22 08:44 Dose: 0.5 mg Documented By: ZENON Sertraline HCl (Sertraline Hcl 100 Mg Tablet) 100 mg PO BEDTIME [facility] Last Admin: 06/02/22 19:53 Dose: 100 mg Documented By: GREGOR Sertraline HCl (Sertraline Hcl 50 Mg Tablet) 50 mg PO BEDTIME [facility] Last Admin: 06/02/22 19:53 Dose: 50 mg Documented By: GREGOR Simethicone (Simethicone 80 Mg Tab.Chew) 80 mg PO Q3H PRN PRN Reason: Indigestion Sodium Chloride (0.9 % Sodium Chloride Flush 3 Ml Syringe) 3 ml IVFLUSH QSHIFT [facility] Last Admin: 06/03/22 08:45 Dose: 3 ml Documented By: ZENON Labs 06/02/22 06:08 06/02/22 06:09 Microbiology Microbiology Results: Microbiology 06/01/22 Unknown Urine Culture - Preliminary Urine Catheterized - Bean Catheter Gram negative ta Pseudomonas species 06/01/22 10:44 Blood Culture - Preliminary Blood - Venous No growth after 24 hours. 06/01/22 10:44 Blood Culture - Preliminary Blood - Venous No growth after 24 hours. Assessment and Plan (1) Acute UTI: Status: Acute Plan This is a 71 year old male with history of dementia, MG, COPD, BPH, chronic indwelling bean who presents complaints of a blocked Bean found to have UTI Sepsis secondary to Acute UTI has chronic indwelling bean Initially met criteria with wbc 12.9, RR 22, HR 99; LA 2.5 Received fluid bolus Initially treated with IV ceftriaxone, urine culture growing GNR and pseudomonas sp - will change abx to cefepime (unable to have levquin due to underlying MG) follow final urine culture results, Blood cultures negative x 24 hours ID consult Acute hypoxic respiratory failure secondary to presumed Acute COPD exacerbation son denies known history of copd but pt is a lifelong smoker CXR negative for PNA; covid/flu/RSV negative continue scheduled and P.r.n. breathing treatments & systemic steroids wean oxygen as tolerated MG will be on IV solu-medrol - hold home prednisone presumed orthostatic hypotension continue midodrine mood continue baseline meds HLD continue statin dvt ppx - lovenox Code status - has DNR bracelet on Attending - Dr. Jacobs Dispo - LTC resident at [facility] Time Spent With Patient Time: Total time managing care of this patient today ____ minutes. Quality Stroke Does the patient have a stroke diagnosis?: No VTE Prior VTE?: No VTE Risk Level:: Medical - moderate - high VTE Device Contraindication: N/A - Device Ordered VTE Drug Contraindication: N/A - Med Ordered
[2022-06-03] MEDS: cefEPime HCl 2 GM in 0.9 % Sodium Chloride 50 ML IV ×2 (12:26→23:07)
[2022-06-03 16:00] VITALS: BP 124/80; PULSE 88; RESP 18; TEMP 36.3; O2SAT 93
[2022-06-03] MEDS: Enoxaparin Sodium 40 MG/0.4 ML SYRINGE SUBCUT (17:12)
[2022-06-03 19:34] VITALS: BP 132/86; PULSE 82; RESP 17; TEMP 36.3; O2SAT 94
[2022-06-03] MEDS: Atorvastatin Calcium 10 MG TABLET PO (20:21)
[2022-06-03] MEDS: Sertraline HCL 50 MG TABLET PO (20:21)
[2022-06-03] MEDS: Sertraline HCL 100 MG TABLET PO (20:21)
[2022-06-03] MEDS: Melatonin 3 MG TABLET PO (23:03)
[2022-06-03] MEDS: Acetaminophen 325 MG TABLET 650 MG PO (23:03)
[2022-06-04 03:12] VITALS: BP 136/84; PULSE 64; RESP 17; TEMP 36.2; O2SAT 94
[2022-06-04] MEDS: methylPREDNISolone Sod Succ 40 MG/ML VIAL IVPUSH ×2 (06:17→17:12)
[2022-06-04] MEDS: Omeprazole 20 MG CAPSULE.DR PO (06:17)
[2022-06-04 07:56] VITALS: BP 120/78; PULSE 78; RESP 18; TEMP 36.7; O2SAT 94
[2022-06-04] MEDS: risperiDONE 0.5 MG TABLET PO ×2 (08:46→21:56)
[2022-06-04] MEDS: Midodrine HCl 5 MG TABLET PO ×3 (08:46→17:11)
[2022-06-04] MEDS: 0.9 % Sodium Chloride Flush 3 ML SYRINGE IVFLUSH ×3 (08:46→23:33)
[2022-06-04] MEDS: Aspirin Enteric Coated 81 MG TABLET.DR PO (08:46)
[2022-06-04] MEDS: Gabapentin 300 MG CAPSULE PO ×2 (08:46→21:56)
--- NOTE | 2022-06-04 09:39 | HO.PM.IMPN ---
Subjective Subjective Date of Service: 06/04/22 Interval History: follow up for UTI, COPD exacerbation awake, alert, feeling well; knows he is in the hospital but confused to situation denies pain or shortness of breath Review of Systems Review of Systems: Yes all other systems are reviewed and are negative Constitutional Constitutional: Denies chills and Denies fever(s) Cardiovascular Cardiovascular: Denies chest pain, Denies palpitations and Denies dyspnea Respiratory Respiratory: Denies cough and Denies dyspnea Gastrointestinal Gastrointestinal: Denies abdominal pain, Denies nausea and Denies vomiting Endocrine Endocrine: Denies palpitations Physical Exam Vital Signs: Vital Signs: Last Vital Signs Temp 98.0 F 06/04/22 07:56 Pulse 78 06/04/22 07:56 Resp 18 06/04/22 07:56 BP 120/78 06/04/22 07:56 Pulse Ox 94 06/04/22 07:56 O2 Del Method 06/04/22 07:56 O2 Flow Rate 2 06/03/22 16:00 BMI result Body Mass Index 26.4 Appearing in no acute distress lung sounds are clear to auscultation heart regular rate rhythm, clear S1, S2 positive bowel sounds, abdomen is soft, nontender neuro patient is alert x3, no focal deficits Objective Data Active Medications Acetaminophen (Acetaminophen 325 Mg Tablet) 650 mg PO Q6H PRN PRN Reason: Pain, Mild (Pain Scale 1-3) Last Admin: 06/03/22 23:03 Dose: 650 mg Documented By: KVNG Aspirin (Aspirin Enteric Coated 81 Mg Tablet.) 81 mg PO DAILY [facility] Last Admin: 06/04/22 08:46 Dose: 81 mg Documented By: MARK Atorvastatin Calcium (Atorvastatin Calcium 10 Mg Tablet) 10 mg PO BEDTIME [facility] Last Admin: 06/03/22 20:21 Dose: 10 mg Documented By: KVNG Albuterol Sulfate 2.5 mg/ (Ipratropium [place] 0.5 mg) 0 mg INHALE RQ6H WHILE AWAKE [facility] Last Admin: 06/04/22 07:23 Dose: Not Given Documented By: JOHN Non-Admin Reason: pt refused wants to sleep Docusate Sodium (Docusate Sodium 100 Mg Capsule) 100 mg PO DAILY PRN PRN Reason: Constipation Enoxaparin Sodium (Enoxaparin Sodium 40 Mg/0.4 Ml Syringe) 40 mg SUBCUT Q24H [facility] Last Admin: 06/03/22 17:12 Dose: 40 mg Documented By: ZENON Gabapentin (Gabapentin 300 Mg Capsule) 300 mg PO BID [facility] Last Admin: 06/04/22 08:46 Dose: 300 mg Documented By: MARK Guaifenesin (Guaifenesin [place] 600 Mg Tab.Er.12h) 600 mg PO Q6H PRN PRN Reason: phlegm Cefepime HCl 2 gm/ Sodium (Chloride) 50 mls @ 100 mls/hr IV Q12H [facility] Last Infusion: 06/03/22 23:43 Dose: 0 mls/hr Documented By: KVNG Levalbuterol HCl (Levalbuterol Hcl 1.25 Mg/0.5 Ml Vial.Neb) 1.25 mg INHALE Q4H PRN PRN Reason: shortness of breath/wheezing Magnesium Hydroxide (Milk Of Magnesia 30 Ml Oral.Susp) 30 ml PO DAILY PRN PRN Reason: Constipation Melatonin (Melatonin 3 Mg Tablet) 3 mg PO BEDTIME PRN PRN Reason: Insomnia Last Admin: 06/03/22 23:03 Dose: 3 mg Documented By: KVNG Methylprednisolone Sodium Succinate (Methylprednisolone Sod Succ 40 Mg/Ml Vial) 40 mg IVPUSH Q12H [facility] Last Admin: 06/04/22 06:17 Dose: 40 mg Documented By: KVNG Midodrine (Midodrine Hcl 5 Mg Tablet) 5 mg PO TIDWM [facility] Last Admin: 06/04/22 08:46 Dose: 5 mg Documented By: MARK Omeprazole (Omeprazole 20 Mg Capsule.) 20 mg PO DAILY@0630 [facility] Last Admin: 06/04/22 06:17 Dose: 20 mg Documented By: KVNG Pharmacy Consult (Consult Rx Perform Med Rec) 1 each MISCELLANE ONCE PRN PRN Reason: Consult order Risperidone (Risperidone 0.5 Mg Tablet) 0.5 mg PO BID [facility] Last Admin: 06/04/22 08:46 Dose: 0.5 mg Documented By: MARK Sertraline HCl (Sertraline Hcl 100 Mg Tablet) 100 mg PO BEDTIME [facility] Last Admin: 06/03/22 20:21 Dose: 100 mg Documented By: KVNG Sertraline HCl (Sertraline Hcl 50 Mg Tablet) 50 mg PO BEDTIME [facility] Last Admin: 06/03/22 20:21 Dose: 50 mg Documented By: KVNG Simethicone (Simethicone 80 Mg Tab.Chew) 80 mg PO Q3H PRN PRN Reason: Indigestion Sodium Chloride (0.9 % Sodium Chloride Flush 3 Ml Syringe) 3 ml IVFLUSH QSHIFT [facility] Last Admin: 06/04/22 08:46 Dose: 3 ml Documented By: MARK Labs 06/02/22 06:08 06/02/22 06:09 Microbiology Microbiology Results: Microbiology 06/01/22 Unknown Urine Culture - Final Urine Catheterized - Baen Catheter Enterobacter cloacae complex Pseudomonas aeruginosa 06/01/22 10:44 Blood Culture - Preliminary Blood - Venous No growth after 48 hours. 06/01/22 10:44 Blood Culture - Preliminary Blood - Venous No growth after 48 hours. Assessment and Plan (1) Acute UTI: Status: Acute Plan This is a 71 year old male with history of dementia, MG, COPD, BPH, chronic indwelling bean who presents complaints of a blocked Bean found to have UTI Sepsis secondary to Acute UTI has chronic indwelling bean Initially treated with IV ceftriaxone, urine culture growing GNR and pseudomonas sp -now on Cefepime (unable to have levquin due to underlying MG) follow final urine culture results, Blood cultures negative x 24 hours ID following Acute hypoxic respiratory failure secondary to presumed Acute COPD exacerbation. Resolved son denies known history of copd but pt is a lifelong smoker CXR negative for PNA; covid/flu/RSV negative continue scheduled and P.r.n. breathing treatments & systemic steroids wean oxygen as tolerated MG will be on IV solu-medrol - hold home prednisone presumed orthostatic hypotension continue midodrine mood continue baseline meds HLD continue statin dvt ppx - lovenox Code status - has DNR bracelet on Attending - Dr. Arlene Hackett - [facility] resident at [facility] Time Spent With Patient Time: Total time managing care of this patient today ____ minutes. Quality Stroke Does the patient have a stroke diagnosis?: No VTE Prior VTE?: No VTE Risk Level:: Medical - moderate - high VTE Device Contraindication: N/A - Device Ordered VTE Drug Contraindication: N/A - Med Ordered
[2022-06-04] MEDS: cefEPime HCl 2 GM in 0.9 % Sodium Chloride 50 ML IV ×2 (11:36→23:33)
[2022-06-04 11:37] VITALS: BP 111/74
[2022-06-04 15:32] VITALS: BP 117/83; PULSE 90; RESP 17; TEMP 36.2; O2SAT 96
--- NOTE | 2022-06-04 16:11 | P.CNID_ITS ---
History of Present Illness Data of Consult Service Date: 06/04/22 Requesting physician: Indira Huertas Primary Care Provider: MARCELA SALGADO Reason for consult: urinary symptoms He presents with weakness and vague abdominal discomfort,feels like UTI. He has no fever or chills He has Pseudomonas in urine. Review of Systems Review of Systems: Yes all other systems are reviewed and are negative PMFSH Past Medical History Medical History BPH (benign prostatic hyperplasia) Compression fx, lumbar spine Compression fx, thoracic spine Constipation Dementia Dementia Depression GERD (gastroesophageal reflux disease) High cholesterol Myasthenia gravis Urinary retention Surgical History Surgical History H/O thymectomy Social History Social History Household Members: Other Housing: Assisted Living Facility Housing Other:: [facility] Alcohol intake: never Patient Tobacco Use Status: Tobacco use Unknown Smoked in Last 30 Days: No Use of substances other than those prescribed or required for medical reasons: No Currently Displaying Signs/Symptoms of Drug Intoxication Withdrawal: No Any prior treatment program specific to substance use: No Have you been hit, kicked, punched, or otherwise hurt by someone within the past year? If so, by whom?: No Do you feel safe in your current relationship?: Yes Is there a partner from a previous relationship who is making you feel unsafe now?: No Are you made to feel afraid or neglected: No Advance Directives: Yes Advance Directives on File: Yes Advance Directives Date on File: 07/17/21 Do you have thoughts of harming others: None Do you have a plan to hurt others: No Plan Recently lost weight without trying: No Eating poorly because of decreased appetite: No Nutrition Risks: Dental problems Poor oral hygiene: No service: No Current occupational status: retired and disabled Meds Allergies Allergy/AdvReac Type Severity Reaction Status Date / Time bacitracin Allergy Unknown Verified 07/16/21 12:22 [From Neosporin ([id number])] iodine Allergy Unknown Verified 07/16/21 12:22 neomycin Allergy Unknown Verified 07/16/21 12:22 [From Neosporin ([id number])] polymyxin B Allergy Unknown Verified 07/16/21 12:22 [From Neosporin ([id number])] Active Medications: Current Medications Acetaminophen (Acetaminophen 325 Mg Tablet) 650 mg PO Q6H PRN PRN Reason: Pain, Mild (Pain Scale 1-3) Last Admin: 06/03/22 23:03 Dose: 650 mg Aspirin (Aspirin Enteric Coated 81 Mg Tablet.) 81 mg PO DAILY [facility] Last Admin: 06/04/22 08:46 Dose: 81 mg Atorvastatin Calcium (Atorvastatin Calcium 10 Mg Tablet) 10 mg PO BEDTIME [facility] Last Admin: 06/03/22 20:21 Dose: 10 mg Albuterol Sulfate 2.5 mg/ (Ipratropium [place] 0.5 mg) 0 mg INHALE RQ6H WHILE AWAKE [facility] Last Admin: 06/04/22 15:08 Dose: Not Given Docusate Sodium (Docusate Sodium 100 Mg Capsule) 100 mg PO DAILY PRN PRN Reason: Constipation Enoxaparin Sodium (Enoxaparin Sodium 40 Mg/0.4 Ml Syringe) 40 mg SUBCUT Q24H [facility] Last Admin: 06/03/22 17:12 Dose: 40 mg Gabapentin (Gabapentin 300 Mg Capsule) 300 mg PO BID [facility] Last Admin: 06/04/22 08:46 Dose: 300 mg Guaifenesin (Guaifenesin La 600 Mg Tab.Er.12h) 600 mg PO Q6H PRN PRN Reason: phlegm Cefepime HCl 2 gm/ Sodium (Chloride) 50 mls @ 100 mls/hr IV Q12H [facility] Last Infusion: 06/04/22 12:35 Dose: Infused Levalbuterol HCl (Levalbuterol Hcl 1.25 Mg/0.5 Ml Vial.Neb) 1.25 mg INHALE Q4H PRN PRN Reason: shortness of breath/wheezing Magnesium Hydroxide (Milk Of Magnesia 30 Ml Oral.Susp) 30 ml PO DAILY PRN PRN Reason: Constipation Melatonin (Melatonin 3 Mg Tablet) 3 mg PO BEDTIME PRN PRN Reason: Insomnia Last Admin: 06/03/22 23:03 Dose: 3 mg Methylprednisolone Sodium Succinate (Methylprednisolone Sod Succ 40 Mg/Ml Vial) 40 mg IVPUSH Q12H [facility] Last Admin: 06/04/22 06:17 Dose: 40 mg Midodrine (Midodrine Hcl 5 Mg Tablet) 5 mg PO TIDWM [facility] Last Admin: 06/04/22 11:37 Dose: 5 mg Omeprazole (Omeprazole 20 Mg Capsule.Dr) 20 mg PO DAILY@0630 [facility] Last Admin: 06/04/22 06:17 Dose: 20 mg Pharmacy Consult (Consult Rx Perform Med Rec) 1 each MISCELLANE ONCE PRN PRN Reason: Consult order Risperidone (Risperidone 0.5 Mg Tablet) 0.5 mg PO BID [facility] Last Admin: 06/04/22 08:46 Dose: 0.5 mg Sertraline HCl (Sertraline Hcl 100 Mg Tablet) 100 mg PO BEDTIME [facility] Last Admin: 06/03/22 20:21 Dose: 100 mg Sertraline HCl (Sertraline Hcl 50 Mg Tablet) 50 mg PO BEDTIME [facility] Last Admin: 06/03/22 20:21 Dose: 50 mg Simethicone (Simethicone 80 Mg Tab.Chew) 80 mg PO Q3H PRN PRN Reason: Indigestion Sodium Chloride (0.9 % Sodium Chloride Flush 3 Ml Syringe) 3 ml IVFLUSH QSHIFT [facility] Last Admin: 06/04/22 08:46 Dose: 3 ml Home Medications Medication Instructions Recorded Confirmed Last Taken Type albuterol sulfate 90 mcg/actuation 2 puff inhalation Q4H PRN 07/16/21 06/01/22 Unknown History aerosol inhaler Shortness Of Breath atorvastatin 10 mg tablet 1 tab PO BEDTIME 07/16/21 06/01/22 Unknown History cyanocobalamin (vitamin B-12) 1,000 mcg PO DAILY 07/16/21 06/01/22 Unknown History 1,000 mcg capsule gabapentin 300 mg capsule 1 cap PO BID 07/16/21 06/01/22 Unknown History guaifenesin 600 mg tablet, 600 mg PO Q6H PRN phlegm 07/16/21 06/01/22 Unknown History extended release 12 hr (Mucinex) melatonin 3 mg tablet 3 mg PO BEDTIME PRN Insomnia 07/16/21 06/01/22 Unknown History midodrine 5 mg tablet 1 tab PO TID 07/16/21 06/01/22 Unknown History multivitamin 1 tab PO DAILY 07/16/21 06/01/22 Unknown History omeprazole 20 mg capsule,delayed 1 cap PO DAILY@0630 07/16/21 06/01/22 Unknown History release prednisone 10 mg tablet 1 tab PO DAILY 07/16/21 06/01/22 Unknown History prednisone 5 mg tablet 1 tab PO DAILY@1700 07/16/21 06/01/22 Unknown History risperidone 0.5 mg tablet 0.5 mg PO BID 07/16/21 06/01/22 Unknown History (Risperdal) sertraline 100 mg tablet 1 tab PO BEDTIME 07/16/21 06/01/22 Unknown History sertraline 50 mg tablet 1 tab PO BEDTIME 07/16/21 06/01/22 Unknown History bisacodyl 10 mg rectal suppository [address] DAILY PRN Constipation 02/09/22 06/01/22 Unknown History simethicone 80 mg tablet 80 mg PO Q3H PRN Indigestion 02/09/22 06/01/22 Unknown History sodium phosphates 19 gram-[address] BEDTIME PRN Constipation 02/09/22 06/01/22 Unknown History gram/118 mL enema (Fleet Enema) acetaminophen 325 mg tablet 650 mg PO Q4H PRN Fever Or Pain 06/01/22 06/01/22 Unknown History albuterol sulfate 2.5 mg/3 mL 2.5 mg inhalation Q6H PRN Wheezing 06/01/22 06/01/22 Unknown History (0.083 %) solution for nebulization aspirin 81 mg tablet,delayed 81 mg PO DAILY 06/01/22 06/01/22 Unknown History release magnesium hydroxide 400 mg/5 mL 30 ml PO DAILY PRN Constipation 06/01/22 06/01/22 Unknown History oral suspension (Milk of Magnesia) sennosides 8.6 mg-docusate sodium 1 tab PO BID PRN Constipation 06/01/22 06/01/22 Unknown History 50 mg tablet (Senna Plus) Physical Exam Vital Signs: Vital Signs: Last Vital Signs Temp 97.2 F 06/04/22 15:32 Pulse 90 06/04/22 15:32 Resp 17 06/04/22 15:32 BP 117/83 06/04/22 15:32 Pulse Ox 96 06/04/22 15:32 O2 Del Method 06/04/22 15:32 O2 Flow Rate 3 06/04/22 15:32 BMI result Body Mass Index 26.4 Const: General: cooperative HEENT: Head: Yes normal to inspection Face and sinus: Yes normal facial exam Mouth: Normal oral and palatal mucosa present Teeth and gingiva: dentition normal Eyes: General: appearance normal, both eyes and all related structures Pupils: Equal, round and reactive pupils present Resp: Effort & Inspection: normal respiratory effort Cardio: Rate: regular rate Rhythm: regular rhythm GI: Palpation (GI): Soft to palpation and nontender : General: Yes no CVA tenderness Back/Spine/Pelvis: Back: no CVA tenderness Skin: General skin exam: no rashes or lesions noted Neuro: General: moves all extremities Cranial nerves: Yes Equal, round and reactive pupils present Extrem: General: Yes normal to inspection Psych: Appearance: grossly normal Results Labs 06/02/22 06:08 06/02/22 06:09 Microbiology Microbiology Results: Microbiology 06/01/22 Unknown Urine Catheterized - [place] Catheter Urine Culture - Final Enterobacter cloacae complex Pseudomonas aeruginosa 06/01/22 10:44 Blood - Venous Blood Culture - Preliminary No growth after 48 hours. 06/01/22 10:44 Blood - Venous Blood Culture - Preliminary No growth after 48 hours. Assessment and Plan (1) Dyspnea: Status: Acute (2) Acute UTI: Status: Acute Patient feels cannot use Levaquin as it doesnt agree with him. Plan 7 d total Cefepime or if insists on leaving 5 d Cefepime and po Fosfomycin but probably better if does 7 d Cefepime. Time Spent With Patient Time: Total time managing care of this patient today ____ minutes.
--- NOTE | 2022-06-04 16:51 | P.CDIM_ITS ---
PROVIDER RESPONSE TEXT: To clarify, the appropriate diagnosis supported by the clinical indicators: Myasthenia gravis without acute exacerbation QUERY TEXT: PHYSICIAN'S DOCUMENTATION REQUEST Date of Query: 06/04/2022 12:58 PM EDT Patient Name: Adolfo Rizzo Admit Date: 06/01/2022 Dear Indira Huertas, A review of the medical record indicates additional documentation may be needed. Please review below and update the documentation accordingly. Is there a diagnosis that correlates with the findings below: Clinical Indicators: Per provider progress notes: MG will be on steroids hold home prednisone Per RN shift assessments: Patient with blurred vision, moderate weakness, and tremors. Based on the above, could you clarify the appropriate diagnosis, if significant, that supports the ab ove abnormalities and additional evaluation, monitoring, and/or treatment rendered: Myasthenia gravis with acute exacerbation Myasthenia gravis without acute exacerbation Other Other (explain) Clinically unable to determine (explain) Thank you, Salena Kaur MS, RN, CCRN Use of terms such as suspected, likely, concern for, or probable (associated with a specific diagnosi s that is being evaluated, monitored, or treated as if it exists) are acceptable and can be coded in the inpatient se tting, when documented at the time of discharge. Please use your independent medical judgment in providing your response. THIS QUERY IS PART OF THE PERMANENT MEDICAL RECORD
--- NOTE | 2022-06-04 16:51 | P.CDIM_ITS ---
PROVIDER RESPONSE TEXT: To clarify, the appropriate diagnosis supported by the clinical indicators: UTI due to other cause: unknown etiology QUERY TEXT: PHYSICIAN'S DOCUMENTATION REQUEST Date of Query: 06/04/2022 12:53 PM EDT Patient Name: Adolfo Rizzo Admit Date: 06/01/2022 Dear Indira Huertas, A review of the medical record indicates additional documentation may be needed. Please review below and update the documentation accordingly. Current documentation includes a diagnosis of UTI and presence of a chronic indwelling bean. Clinical indicators: Per provider H&P: chronic indwelling bean who presents complaints of a blocked [place] found to have UTI Bean catheter was changed, urinalysis was indicative of UTI Per provider progress notes: Sepsis secondary to Acute UTI has chronic indwelling bean Please provide further specificity regarding the possible link between the two: UTI due to device (i.e. indwelling catheter) UTI due to other cause Please indicate cause Other Other (explain) Clinically unable to determine (explain) Thank you, Salena Kaur MS, RN, CCRN Use of terms such as suspected, likely, concern for, or probable (associated with a specific diagnosi s that is being evaluated, monitored, or treated as if it exists) are acceptable and can be coded in the inpatient se tting, when documented at the time of discharge. Please use your independent medical judgment in providing your response. THIS QUERY IS PART OF THE PERMANENT MEDICAL RECORD
--- NOTE | 2022-06-04 17:04 | MHC.CM.PN ---
Addendum entered by Jeny Edge 06/04/22 17:07: A Midline is ordered for tomorrow. Original Note: Per MD rounds discharge is anticipated tomorrow. He will return to [facility] via BLS. The facility is seeking insurance authorization today for tomorrow. Patient will requires 4 more days of IV ABX; which will be given at the facility.
[2022-06-04] MEDS: Enoxaparin Sodium 40 MG/0.4 ML SYRINGE SUBCUT (17:11)
[2022-06-04 20:00] VITALS: BP 120/82; PULSE 82; RESP 17; TEMP 36.4; O2SAT 95
[2022-06-04] MEDS: Atorvastatin Calcium 10 MG TABLET PO (21:55)
[2022-06-04] MEDS: Sertraline HCL 100 MG TABLET PO (21:56)
[2022-06-04] MEDS: Sertraline HCL 50 MG TABLET PO (21:56)
[2022-06-05 03:06] VITALS: BP 123/80; PULSE 71; RESP 17; TEMP 36.2; O2SAT 96
[2022-06-05] MEDS: Omeprazole 20 MG CAPSULE.DR PO (05:20)
[2022-06-05] MEDS: methylPREDNISolone Sod Succ 40 MG/ML VIAL IVPUSH (05:20)
[2022-06-05 07:48] VITALS: BP 139/92; PULSE 70; RESP 18; TEMP 36.1; O2SAT 92
[2022-06-05 08:23] VITALS: PULSE 73; RESP 18; O2SAT 92
--- NOTE | 2022-06-05 10:12 | HO.MIDLINE ---
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 Using ultrasound guidance, the right brachial vein access was obtained in a second attempt by this RN. A 10cm 20guage NON PASV midline was positioned. The procedure was performed in S272. Ultrasound was used to document vein patency and for needle entry. A formal ultrasound picture was recorded. Vascular Production Line Technician has released the line for use and it is currently dressed with a StatLock, Tegaderm, and CHG disc. Verification has been performed for blood return and line patency. Arm Circumference: 29 cm Equipment: Bard PowerGlide ST Midline Catheter Catheter Type: Bard PowerGlide ST Midline 20 guage 10 cm Catheter Lot #: [id number]
[2022-06-05] MEDS: Gabapentin 300 MG CAPSULE PO (10:53)
[2022-06-05] MEDS: 0.9 % Sodium Chloride Flush 3 ML SYRINGE IVFLUSH (10:53)
[2022-06-05] MEDS: Aspirin Enteric Coated 81 MG TABLET.DR PO (10:53)
[2022-06-05] MEDS: Midodrine HCl 5 MG TABLET PO (10:53)
[2022-06-05] MEDS: risperiDONE 0.5 MG TABLET PO (10:54)
--- NOTE | 2022-06-05 11:30 | PC.NURSE ---
Morning medications given late due to patient going down for midline placement
[2022-06-05] MEDS: cefEPime HCl 2 GM in 0.9 % Sodium Chloride 50 ML IV (12:11)
--- NOTE | 2022-06-05 12:39 | PM.DS ---
DS: Providers Provider Date of Service: 06/05/22 Date of admission: 06/01/22 16:31 Primary care physician: MARCELA SALGADO Consults: 06/03/22 11:41 Consult to Infectious Diseases Routine Consulting Provider: [facility] Infectious Disease Reason for consultation: ?UTI; chronic bean, growing pseudomonas Has provider been notified: No Attending physician on discharge: Gerardo Jacobs Discharging clinician: Indira Huertas DS: Diagnosis Discharge Diagnosis (1) Dyspnea: Status: Acute (2) Acute UTI: Status: Acute DS: Summary Hospital Course Hospital Course: This is a 71-year-old male with documented history of dementia, myasthenia gravis, COPD, BPH was brought to the emergency department for evaluation of a blocked Bean catheter.? In the emergency department he was also noted to be tachypneic.? Bean catheter was changed, urinalysis was indicative of UTI. CXR showed no acute process.? He received multiple breathing treatments and a dose of IV ceftriaxone. Lactic acid was 2.3, 2.5 and he received 1500 cc of NS. The decision was made to admit the patient for further management of UTI and dyspnea. The patient was unable to provide a reliable history. He denies any shortness of breath, cough, fever or abdominal pain. Sepsis secondary to Acute UTI has chronic indwelling bean Initially treated with IV ceftriaxone, urine culture grew Ecoli and pseudomonas sp -now on Cefepime continue for 4 more days, remove Midline at last dose Acute hypoxic respiratory failure secondary to presumed Acute COPD exacerbation. Resolved CXR negative for PNA; covid/flu/RSV negative treated with scheduled and P.r.n. breathing treatments & systemic steroids wean oxygen as tolerated MG continue home prednisone presumed orthostatic hypotension continue midodrine mood continue baseline meds HLD continue statin Time Spent with Patient Time attestation: Total time managing care of this patient today ____ minutes. Discharge coordination time: Greater than 30 minutes Quality: Safe Use of Opioids Does Pt have an Active Cancer Diagnosis on the Problem List?: No Quality: Stroke Does the patient have a stroke diagnosis?: No Physical Exam Vital Signs: Vital Signs: Last Vital Signs Temp 96.9 F 06/05/22 07:48 Pulse 73 06/05/22 08:23 Resp 18 06/05/22 08:23 BP 139/92 H 06/05/22 07:48 Pulse Ox 92 06/05/22 07:48 O2 Del Method 06/05/22 07:48 O2 Flow Rate 3 06/05/22 07:48 BMI result Body Mass Index 26.4 Appearing in no acute distress head is normocephalic atraumatic eyes pupils are PERRLA sclera is anicteric mouth throat mucous membranes are intact and moist neck is supple no lymphadenopathy, no JVD noted lung sounds are clear to auscultation heart regular rate rhythm, clear S1, S2 positive bowel sounds, abdomen is soft, nontender neuro patient is alert, confused DS: Data Data Completed and Pending Labs on day of discharge: Preliminary micro results at discharge 06/01/22 10:44 Blood Culture - Preliminary Blood - Venous No growth after 48 hours. 06/01/22 10:44 Blood Culture - Preliminary Blood - Venous No growth after 48 hours. Discharge Plan Discharge Anticipated Discharge Date/Time: 06/05/22 11:41 Patient Disposition: Xfer [facility] Discharge Diagnosis: COPD exacerbation UTI Referrals: MARCELA SALGADO [Primary Care Provider] - 1 Week Discharge Medications: New cefepime 2 gram Recon Soln 2 g IV Q12H 4 Days Qty: 10 0RF Continued bisacodyl 10 mg Suppository 10 mg MT DAILY PRN (Reason: Constipation) Rx Instructions: if milk of magnesia not effective Fleet Enema 19-7 gram/118 mL Enema 118 ml MT BEDTIME PRN (Reason: Constipation) Rx Instructions: when dulcolax suppository not effective simethicone 80 mg Tablet 80 mg PO Q3H PRN (Reason: Indigestion) albuterol sulfate 2.5 mg /3 mL (0.083 %) Solution For Nebulization 2.5 mg INHALATION Q6H PRN (Reason: Wheezing) aspirin 81 mg Tablet,Delayed Release (Dr/Ec) 81 mg PO DAILY sennosides-docusate sodium [Senna Plus] 8.6-50 mg Tablet 1 tab PO BID PRN (Reason: Constipation) acetaminophen 325 mg Tablet 650 mg PO Q4H PRN (Reason: Fever Or Pain) magnesium hydroxide [Milk of Magnesia] 400 mg/5 mL Suspension 30 ml PO DAILY PRN (Reason: Constipation) Rx Instructions: for no bm in 3 days atorvastatin 10 mg tablet 1 tab PO BEDTIME sertraline 100 mg tablet 1 tab PO BEDTIME Rx Instructions: take with 50 mg for 150 mg total dose prednisone 5 mg tablet 1 tab PO DAILY@1700 midodrine 5 mg tablet 1 tab PO TID Rx Instructions: hold for sbp >140 gabapentin 300 mg capsule 1 cap PO BID omeprazole 20 mg capsule,delayed release(DR/EC) 1 cap PO DAILY@0630 sertraline 50 mg tablet 1 tab PO BEDTIME Rx Instructions: take with 100 mg for total dose of 150 mg multivitamin Tablet 1 tab PO DAILY prednisone 10 mg tablet 1 tab PO DAILY melatonin 3 mg Tablet 3 mg PO BEDTIME PRN (Reason: Insomnia) albuterol sulfate 90 mcg/actuation Hfa Aerosol Inhaler 2 puff INHALATION Q4H PRN (Reason: Shortness Of Breath) risperidone [Risperdal] 0.5 mg Tablet 0.5 mg PO BID guaifenesin [Mucinex] 600 mg Tablet Extended Release 12hr 600 mg PO Q6H PRN (Reason: phlegm) cyanocobalamin (vitamin B-12) 1,000 mcg Capsule 1,000 mcg PO DAILY Discharge Orders: Discharge Order (Routine); Ordered 06/05/22 Ordered By: Indira Huertas Diet: Advance to usual diet Activity on Discharge: As tolerated Stand Alone Forms: Patient Portal Discharge page Care Plan Goals: Complete resolution of symptoms Health Concerns: COPD exacerbation UTI Plan of Treatment: Take all medications as prescribed Remove midline after last dose antibiotics 06/09/22 (total 9 doses left) Assessment: See Discharge summary
[2022-06-05 12:49] LABS: COVID-19 Test Negative (Negative); IDNOW Serial# 08D9AD1C
--- NOTE | 2022-06-05 13:07 | MHC.CM.PN ---
pt to be dcd today at 2:30 return to [facility] message left for son
[2022-06-05 14:24] VITALS: PULSE 90; RESP 16; O2SAT 97
== END 2022-06-05 15:25 | DRG 698 ==
LOC: HO.ED 15:49 → HO.EDOVER 16:42 → HO.S3 17:09
PROVIDERS: Admitting Provider Physician Assistant Medical; Emergency Provider Emergency Medicine; PCP Emergency Medicine; Visit Provider Nurse Practitioner Acute Care
DX: T83.098A Other mechanical complication of other urinary catheter, initial encounter (principal); A41.9 Sepsis, unspecified organism; J96.01 Acute respiratory failure with hypoxia; N39.0 Urinary tract infection, site not specified; J44.1 Chronic obstructive pulmonary disease with (acute) exacerbation; B96.20 Unspecified Escherichia coli [E. coli] as the cause of diseases classified elsewhere; B96.5 Pseudomonas (aeruginosa) (mallei) (pseudomallei) as the cause of diseases classified elsewhere; Y73.8 Miscellaneous gastroenterology and urology devices associated with adverse incidents, not elsewhere classified; G70.00 Myasthenia gravis without (acute) exacerbation; F03.90 Unspecified dementia, unspecified severity, without behavioral disturbance, psychotic disturbance, mood disturbance, and anxiety; Z66 Do not resuscitate; E78.5 Hyperlipidemia, unspecified; I95.1 Orthostatic hypotension; Z20.822 Contact with and (suspected) exposure to COVID-19; Z79.82 Long term (current) use of aspirin; Z79.52 Long term (current) use of systemic steroids; Z79.899 Other long term (current) drug therapy
CPT/HCPCS: 36410; 36415; 71045; 80048; 81001; 83605; 84484; 85025; 85027; 87040; 87086; 87088; 87186; 87502; 87635; 93005; 94640; 99285; J0692; J0696; J1650; J2920

== ENCOUNTER 2022-11-16 12:59 | Inpatient (IN) | payer MEDICARE, MEDICAID, SELFPAY ==
[2022-11-16] VITALS (7 sets, daily range): BP systolic 99–120; BP diastolic 65–88; PULSE 72–90; RESP 14–27; TEMP 36.5–37.8; O2SAT 92–98; BMI 28.5
--- NOTE | ~2022-11-16 | XR_ITS ---
EXAMINATION: XR CHEST CLINICAL INFORMATION: Covid positive. COMPARISON: Chest x-ray 06/01/2022, 07/16/2021 TECHNIQUE: Frontal portable view of the chest was obtained. 1535 hours FINDINGS: Status post median sternotomy. Heart size is normal. The cardiac and mediastinal contours are normal. No pulmonary vascular congestion. No focal consolidation. No pleural effusion or pneumothorax. Compared to prior chest x-rays is no significant change. XR/XR chest 1V IMPRESSION: No acute abnormality of the chest.
--- NOTE | 2022-11-16 14:32 | ED.SOB ---
HPI - SOB/Dyspnea General Chief Complaint: Dyspnea Stated Complaint: COVID + DIFF BREATHING Time Seen by Provider: 11/16/22 14:30 Source: patient and other (Nursing facility [facility]) Mode of arrival: EMS Limitations: other (Dementia) History of Present Illness HPI Narrative: 71-year-old male with documented history of dementia, myasthenia gravis, COPD, BPH was brought to emergency department by ambulance for evaluation of hypoxia and COVID-19 positive x1 day. The patient has dementia and lacks insight as to why he is here. The [facility]: ?Resident tested positive for COVID today. Residence baseline is short of breath, tremor, and dementia. Resident had a recent decrease in O2 level 2-3 weeks ago, he was saturating at 95-96% and 2-3 L. currently saturating at 93% on 4-4.5 L. PA has concerns of hypoxia. ? [facility] vital signs were as follows: Temperature 98.6 degrees, pulse 89, respiratory 20, blood pressure 97/66, O2 saturation 93% on 4 L Related Data Home Medications Medication Instructions Recorded Confirmed albuterol sulfate 90 mcg/actuation 2 puff inhalation Q4H PRN 07/16/21 11/16/22 aerosol inhaler Shortness Of Breath atorvastatin 10 mg tablet 1 tab PO BEDTIME 07/16/21 11/16/22 cyanocobalamin (vitamin B-12) 1,000 mcg PO DAILY 07/16/21 11/16/22 1,000 mcg capsule gabapentin 300 mg capsule 1 cap PO BID 07/16/21 11/16/22 melatonin 3 mg tablet 3 mg PO BEDTIME 07/16/21 11/16/22 multivitamin 1 tab PO DAILY 07/16/21 11/16/22 omeprazole 20 mg capsule,delayed 1 cap PO DAILY@0630 07/16/21 11/16/22 release prednisone 5 mg tablet 1 tab PO DAILY 07/16/21 11/16/22 risperidone 0.5 mg tablet 0.5 mg PO BID 07/16/21 11/16/22 (Risperdal) sertraline 100 mg tablet 1 tab PO DAILY 07/16/21 11/16/22 sertraline 50 mg tablet 1 tab PO DAILY 07/16/21 11/16/22 bisacodyl 10 mg rectal suppository 10 mg KY DAILY PRN Constipation 02/09/22 11/16/22 sodium phosphates 19 gram-7 118 ml KY BEDTIME PRN Constipation 02/09/22 11/16/22 gram/118 mL enema (Fleet Enema) acetaminophen 325 mg tablet 650 mg PO Q4H PRN Fever Or Pain 06/01/22 11/16/22 albuterol sulfate 2.5 mg/3 mL 2.5 mg inhalation Q6H PRN Wheezing 06/01/22 11/16/22 (0.083 %) solution for nebulization aspirin 81 mg tablet,delayed 81 mg PO DAILY 06/01/22 11/16/22 release magnesium hydroxide 400 mg/5 mL 30 ml PO DAILY PRN Constipation 06/01/22 11/16/22 oral suspension (Milk of Magnesia) sennosides 8.6 mg-docusate sodium 1 tab PO BID PRN Constipation 06/01/22 11/16/22 50 mg tablet (Senna Plus) midodrine 5 mg tablet 5 mg PO TID@0800,1200,1800 11/16/22 11/16/22 peg [id number] 1 1 drp ophthalmic (eye) BID 11/16/22 11/16/22 %-0.2 %-0.2 % eye drops (Artificial Tears ([id number])) Previous Rx's Medication Instructions Recorded dexamethasone 6 mg tablet 6 mg PO DAILY 5 days #5 tabs 11/16/22 Allergies Allergy/AdvReac Type Severity Reaction Status Date / Time bacitracin Allergy Unknown Verified 07/16/21 12:22 [From Neosporin ([id number])] iodine Allergy Unknown Verified 07/16/21 12:22 neomycin Allergy Unknown Verified 07/16/21 12:22 [From Neosporin ([id number])] polymyxin B Allergy Unknown Verified 07/16/21 12:22 [From Neosporin ([id number])] Review of Systems Review of Systems: Yes Unobtainable due to mental status [facility] Past Medical History [facility] Narrative: Past medical history: Reviewed below, patient also has COPD with chronic hypoxia on continuous oxygen therapy and adrenal insufficiency. Social history: Patient is a long-term resident at [facility] Medical History BPH (benign prostatic hyperplasia) Compression fx, lumbar spine Compression fx, thoracic spine Constipation Dementia Dementia Depression GERD (gastroesophageal reflux disease) High cholesterol Myasthenia gravis Urinary retention Surgical History H/O thymectomy Social History Social History Household Members: Other Housing: Assisted Living Facility Housing Other:: [facility] Alcohol intake: never Patient Tobacco Use Status: Tobacco use Unknown Advance Directives: Yes Advance Directives on File: Yes Advance Directives Date on File: 07/17/21 service: No Current occupational status: retired and disabled Physical Exam Vital Signs: Vital Signs: Last Vital Signs Temp 98.5 F 11/16/22 17:29 Pulse 74 11/16/22 17:29 Resp 18 11/16/22 17:29 BP 111/73 11/16/22 17:29 Pulse Ox 95 11/16/22 17:29 O2 Del Method Nasal Cannula 11/16/22 17:29 O2 Flow Rate 4 11/16/22 17:29 Oxygen Flow Rate 4 11/16/22 13:10 BMI result Body Mass Index 28.5 Vital signs reviewed, low-grade fever of 100.1 degrees F, O2 sat 92% on 4 L-correctable hypoxia Exam: General: Awake, alert in no distress, oriented to person, lacks insight as to why he is here in the hospital Head: Normocephalic, atraumatic EENT: PERRL, Lids normal, sclera normal, conjunctiva normal, nose normal , ears normal, throat without erythema or exudates Neck: Supple, no adenopathy, trachea midline and nontender Lung: breath sounds symmetric, no wheezing, rales or rhonchi Chest: symmetric movement, nontender Heart: regular rate and rhythm, normal S1, S2 no murmurs or rubs Abdomen: soft, non-tender, nondistended, normal bowel sounds Back: no vertebral tenderness, no CVAT Extremities: no deformities, moves all extremities symmetrically Neuro: Awake, alert, oriented to person, normal speech, cranial nerves intact, moves all extremities symmetrically Psych: Pleasant, cooperative Medications Administered Discontinued Medications Generic Name Dose Route Start Last Admin Trade Name Freq PRN Reason Stop Dose Admin Dexamethasone Sodium Phosphate 6 mg 08/25/23 17:17 11/16/22 17:26 Dexamethasone Sod Phosphate 4 Mg/Ml Vial IVPUSH 11/16/22 17:18 6 mg ONCE ONE Administration Medical Decision Making Medical Decision Making [facility] Narrative: 71-year-old male patient with history of dementia, myasthenia gravis, COPD, BPH was brought to the emergency department for evaluation increased hypoxia above baseline requiring higher O2 saturations (2-3 L at baseline now on 4 L) and COVID positive today. Patient has dementia and lacks insight as to why he is here, has no complaints he does not appear to be in respiratory distress. Vital signs did reveal low-grade fever of 100.1 degrees F. his O2 saturation was 92% on 4 L which is consistent with correctable hypoxia. I did order the following evaluation: CBC, CMP, lipase, PT/INR, PTT, D-dimer, ESR, CRP, ferritin, LDH, magnesium, lactic acid, VBG, procalcitonin, blood cultures x2, EKG and chest x-ray. 17:16: The patient's laboratory evaluation did reveal increased inflammatory markers which is consistent with his COVID infection. His LDH, ferritin procalcitonin were normal. Lactic acid was not elevated The patient's chest x-ray revealed no evidence for pneumonia at this time. I did speak to the physician cardiovascular physician assistant, Marcusfifi who is covered the patient's nursing facility . He stated that his concern was that the patient have myasthenia gravis, COPD , adrenal insufficiency, and is a DNR and DNI and that the only treatment option would be increased oxygen for worsening hypoxic which they may not be able to provide at their facility. Given the patient's significant risk factors for deterioration, I will discuss admission with the covering hospitalist. 18:00: I did discuss the patient over tiger text with the covering hospitalist, Dr. Jones who accepted the patient Differential Diagnosis Differential Diagnoses: The differential diagnosis associated with the presentation includes 15:31: Differential diagnosis includes was not limited to p bacterial pneumonia, COVID-19 pneumonia, Admission/Observation Consideration of admission/observation: Escalation of care including admission/observation considered Lab Data [facility] Lab Attestation statement: I reviewed the patient's lab results. My interpretation patient's laboratory evaluation is as follows: Inflammatory markers were elevated including ESR -53, CRP-9.12, D-dimer-480. Patient's ferritin and LDH were normal. Procalcitonin was normal suggesting that the patient does not have bacterial process. Venous pH slightly low at 7.34 with an elevated CO2 of 66 and bicarb of 36. Urinalysis and microscopic consistent with non clean catch specimen. BMP was normal. Lactic acid was normal. Ferritin was normal. COVID-19 was positive. 11/16/22 15:58 11/16/22 15:58 Labs: Lab Results 11/16/22 11/16/22 11/16/22 Range/Units 15:58 15:58 15:58 WBC 6.1 (4.8-10.8) X10*3/uL RBC 3.84 L (4.60-5.80) X10*6/uL Hgb 11.7 L (14.0-18.0) g/dl Hct 37.4 L (42.0-52.0) % MCV 97.4 (80.0-98.0) fL MCH 30.5 (27.0-33.0) pg MCHC 31.3 (31.0-36.0) g/dl RDW 14.0 (11.0-16.0) % Plt Count 206 (160-400) X10*3/uL MPV 11.2 (9.4-12.4) fL Immature Gran % (Auto) 0.3 (0.0-0.4) % Neut % (Auto) 77.2 H (45-73) % Lymph % (Auto) 11.7 L (20-40) % [place] % (Auto) 10.2 (2-11) % Eos % (Auto) 0.3 (0-4) % Baso % (Auto) 0.3 (0-2) % Lymph # (Auto) 0.7 L (1.2-4.9) X10*3/uL [place] # (Auto) 0.6 (0.1-1.2) X10*3/uL Eos # (Auto) 0.0 (0.0-0.4) X10*3/uL Baso # (Auto) 0.0 (0.0-0.2) X10*3/uL Abs Immat Gran (auto) 0.02 (0.00-0.03) X10*3/uL Absolute Neuts (auto) 4.7 (2.0-8.3) x10*3/uL Absolute Nucleated RBC 0.000 (0.0-0.012) X10*3/uL Nucleated RBC % (auto) 0.0 (0.0-0.2) /100WBC ESR (0-15) MM/HR PT (11.1-13.3) SEC INR (0.9-1.1) APTT (26.0-36.4) SEC D-Dimer High Sensitivty 480 NG/ML VBG pH (7.32-7.43) VBG pCO2 mmHg VBG pO2 mmHg VBG HCO3 (22-26) mmol/L VBG O2 Saturation % VBG Base Excess mmol/L Sodium (135-145) mmol/L Potassium (3.3-5.1) mmol/L Chloride (96-108) mmol/L Carbon Dioxide (22-29) mmol/L Anion Gap (12-20) BUN (9-16) mg/dL Creatinine (0.5-1.4) mg/dL Estim Creat Clear Calc Estimated GFR Random Glucose (60-115) mg/dL Lactic Acid (0.5-2.0) mmol/L Calcium (8.4-10.2) mg/dL Phosphorus 4.6 H (2.7-4.5) mg/dL Magnesium 2.0 (1.6-2.6) mg/dL Ferritin (20-250) ng/mL Total Bilirubin (0.0-1.0) mg/dL AST (5-37) U/L ALT (0-40) U/L Alkaline Phosphatase (39-117) U/L Lactate Dehydrogenase 176 (118-273) U/L Total Creatine Kinase 33 L (38-174) U/L Troponin I High Sens (<3.5-35.0) ng/L C-Reactive Protein 9.12 H (< or = 0.50) mg/dL B-Natriuretic Peptide (<100) pg/mL Total Protein (6.5-8.0) g/dL Albumin (3.5-5.0) g/dL Lipase (8-78) U/L Procalcitonin 0.09 ng/mL Urine Color Urine Appearance Urine pH (5.0-9.0) Ur Specific Str[place] (1.005-1.025) Urine Protein (Neg-Trace) mg/dL Urine Glucose (UA) (Negative) mg/dL Urine Ketones (Negative) mg/dL Urine Blood (Negative) Urine Nitrite (Negative) Ur Leukocyte Esterase (Negative) Urine RBC (0-2) /HPF Urine WBC (0-5) /HPF Ur Squamous Epith Cells (0-2) /HPF Urine Bacteria (None Seen) Hyaline Casts (0-2) /LPF COVID-19 (FRANCY) (Negative) COVID-19 Clin Com 11/16/22 11/16/22 11/16/22 Range/Units 15:58 15:58 15:58 WBC (4.8-10.8) X10*3/uL RBC (4.60-5.80) X10*6/uL Hgb (14.0-18.0) g/dl Hct (42.0-52.0) % MCV (80.0-98.0) fL MCH (27.0-33.0) pg MCHC (31.0-36.0) g/dl RDW (11.0-16.0) % Plt Count (160-400) X10*3/uL MPV (9.4-12.4) fL Immature Gran % (Auto) (0.0-0.4) % Neut % (Auto) (45-73) % Lymph % (Auto) (20-40) % [place] % (Auto) (2-11) % Eos % (Auto) (0-4) % Baso % (Auto) (0-2) % Lymph # (Auto) (1.2-4.9) X10*3/uL [place] # (Auto) (0.1-1.2) X10*3/uL Eos # (Auto) (0.0-0.4) X10*3/uL Baso # (Auto) (0.0-0.2) X10*3/uL Abs Immat Gran (auto) (0.00-0.03) X10*3/uL Absolute Neuts (auto) (2.0-8.3) x10*3/uL Absolute Nucleated RBC (0.0-0.012) X10*3/uL Nucleated RBC % (auto) (0.0-0.2) /100WBC ESR 53 H (0-15) MM/HR PT (11.1-13.3) SEC INR (0.9-1.1) APTT (26.0-36.4) SEC D-Dimer High Sensitivty NG/ML VBG pH (7.32-7.43) VBG pCO2 mmHg VBG pO2 mmHg VBG HCO3 (22-26) mmol/L VBG O2 Saturation % VBG Base Excess mmol/L Sodium 140 (135-145) mmol/L Potassium 4.6 (3.3-5.1) mmol/L Chloride 99 (96-108) mmol/L Carbon Dioxide 34 H (22-29) mmol/L Anion Gap 12 (12-20) BUN 16 (9-16) mg/dL Creatinine 0.78 (0.5-1.4) mg/dL Estim Creat Clear Calc 110.0 Estimated GFR > 60 Random Glucose 105 (60-115) mg/dL Lactic Acid (0.5-2.0) mmol/L Calcium 9.2 (8.4-10.2) mg/dL Phosphorus (2.7-4.5) mg/dL Magnesium (1.6-2.6) mg/dL Ferritin 212 (20-250) ng/mL Total Bilirubin 0.7 (0.0-1.0) mg/dL AST 23 (5-37) U/L ALT 15 (0-40) U/L Alkaline Phosphatase 60 (39-117) U/L Lactate Dehydrogenase (118-273) U/L Total Creatine Kinase (38-174) U/L Troponin I High Sens < 2.7 (<3.5-35.0) ng/L C-Reactive Protein (< or = 0.50) mg/dL B-Natriuretic Peptide (<100) pg/mL Total Protein 7.0 (6.5-8.0) g/dL Albumin 3.7 (3.5-5.0) g/dL Lipase 27 (8-78) U/L Procalcitonin ng/mL Urine Color Urine Appearance Urine pH (5.0-9.0) Ur Specific [place] (1.005-1.025) Urine Protein (Neg-Trace) mg/dL Urine Glucose (UA) (Negative) mg/dL Urine Ketones (Negative) mg/dL Urine Blood (Negative) Urine Nitrite (Negative) Ur Leukocyte Esterase (Negative) Urine RBC (0-2) /HPF Urine WBC (0-5) /HPF Ur Squamous Epith Cells (0-2) /HPF Urine Bacteria (None Seen) Hyaline Casts (0-2) /LPF COVID-19 (FRANCY) (Negative) COVID-19 Clin Com 11/16/22 11/16/22 11/16/22 Range/Units 15:59 15:59 15:59 WBC (4.8-10.8) X10*3/uL RBC (4.60-5.80) X10*6/uL Hgb (14.0-18.0) g/dl Hct (42.0-52.0) % MCV (80.0-98.0) fL MCH (27.0-33.0) pg MCHC (31.0-36.0) g/dl RDW (11.0-16.0) % Plt Count (160-400) X10*3/uL MPV (9.4-12.4) fL Immature Gran % (Auto) (0.0-0.4) % Neut % (Auto) (45-73) % Lymph % (Auto) (20-40) % [place] % (Auto) (2-11) % Eos % (Auto) (0-4) % Baso % (Auto) (0-2) % Lymph # (Auto) (1.2-4.9) X10*3/uL [place] # (Auto) (0.1-1.2) X10*3/uL Eos # (Auto) (0.0-0.4) X10*3/uL Baso # (Auto) (0.0-0.2) X10*3/uL Abs Immat Gran (auto) (0.00-0.03) X10*3/uL Absolute Neuts (auto) (2.0-8.3) x10*3/uL Absolute Nucleated RBC (0.0-0.012) X10*3/uL Nucleated RBC % (auto) (0.0-0.2) /100WBC ESR (0-15) MM/HR PT 12.9 (11.1-13.3) SEC INR 1.1 (0.9-1.1) APTT 39.4 H (26.0-36.4) SEC D-Dimer High Sensitivty NG/ML VBG pH (7.32-7.43) VBG pCO2 mmHg VBG pO2 mmHg VBG HCO3 (22-26) mmol/L VBG O2 Saturation % VBG Base Excess mmol/L Sodium (135-145) mmol/L Potassium (3.3-5.1) mmol/L Chloride (96-108) mmol/L Carbon Dioxide (22-29) mmol/L Anion Gap (12-20) BUN (9-16) mg/dL Creatinine (0.5-1.4) mg/dL Estim Creat Clear Calc Estimated GFR Random Glucose (60-115) mg/dL Lactic Acid 0.6 (0.5-2.0) mmol/L Calcium (8.4-10.2) mg/dL Phosphorus (2.7-4.5) mg/dL Magnesium (1.6-2.6) mg/dL Ferritin (20-250) ng/mL Total Bilirubin (0.0-1.0) mg/dL AST (5-37) U/L ALT (0-40) U/L Alkaline Phosphatase (39-117) U/L Lactate Dehydrogenase (118-273) U/L Total Creatine Kinase (38-174) U/L Troponin I High Sens (<3.5-35.0) ng/L C-Reactive Protein (< or = 0.50) mg/dL B-Natriuretic Peptide 20 (<100) pg/mL Total Protein (6.5-8.0) g/dL Albumin (3.5-5.0) g/dL Lipase (8-78) U/L Procalcitonin ng/mL Urine Color Urine Appearance Urine pH (5.0-9.0) Ur Specific [place] (1.005-1.025) Urine Protein (Neg-Trace) mg/dL Urine Glucose (UA) (Negative) mg/dL Urine Ketones (Negative) mg/dL Urine Blood (Negative) Urine Nitrite (Negative) Ur Leukocyte Esterase (Negative) Urine RBC (0-2) /HPF Urine WBC (0-5) /HPF Ur Squamous Epith Cells (0-2) /HPF Urine Bacteria (None Seen) Hyaline Casts (0-2) /LPF COVID-19 (FRANCY) (Negative) COVID-19 Clin Com 11/16/22 11/16/22 11/16/22 Range/Units 16:00 16:00 16:05 WBC (4.8-10.8) X10*3/uL RBC (4.60-5.80) X10*6/uL Hgb (14.0-18.0) g/dl Hct (42.0-52.0) % MCV (80.0-98.0) fL MCH (27.0-33.0) pg MCHC (31.0-36.0) g/dl RDW (11.0-16.0) % Plt Count (160-400) X10*3/uL MPV (9.4-12.4) fL Immature Gran % (Auto) (0.0-0.4) % Neut % (Auto) (45-73) % Lymph % (Auto) (20-40) % [place] % (Auto) (2-11) % Eos % (Auto) (0-4) % Baso % (Auto) (0-2) % Lymph # (Auto) (1.2-4.9) X10*3/uL [place] # (Auto) (0.1-1.2) X10*3/uL Eos # (Auto) (0.0-0.4) X10*3/uL Baso # (Auto) (0.0-0.2) X10*3/uL Abs Immat Gran (auto) (0.00-0.03) X10*3/uL Absolute Neuts (auto) (2.0-8.3) x10*3/uL Absolute Nucleated RBC (0.0-0.012) X10*3/uL Nucleated RBC % (auto) (0.0-0.2) /100WBC ESR (0-15) MM/HR PT (11.1-13.3) SEC INR (0.9-1.1) APTT (26.0-36.4) SEC D-Dimer High Sensitivty NG/ML VBG pH 7.34 (7.32-7.43) VBG pCO2 66 mmHg VBG pO2 42 mmHg VBG HCO3 36 H (22-26) mmol/L VBG O2 Saturation 59.0 % VBG Base Excess 8.8 mmol/L Sodium (135-145) mmol/L Potassium (3.3-5.1) mmol/L Chloride (96-108) mmol/L Carbon Dioxide (22-29) mmol/L Anion Gap (12-20) BUN (9-16) mg/dL Creatinine (0.5-1.4) mg/dL Estim Creat Clear Calc Estimated GFR Random Glucose (60-115) mg/dL Lactic Acid (0.5-2.0) mmol/L Calcium (8.4-10.2) mg/dL Phosphorus (2.7-4.5) mg/dL Magnesium (1.6-2.6) mg/dL Ferritin (20-250) ng/mL Total Bilirubin (0.0-1.0) mg/dL AST (5-37) U/L ALT (0-40) U/L Alkaline Phosphatase (39-117) U/L Lactate Dehydrogenase (118-273) U/L Total Creatine Kinase (38-174) U/L Troponin I High Sens (<3.5-35.0) ng/L C-Reactive Protein (< or = 0.50) mg/dL B-Natriuretic Peptide (<100) pg/mL Total Protein (6.5-8.0) g/dL Albumin (3.5-5.0) g/dL Lipase (8-78) U/L Procalcitonin ng/mL Urine Color Yellow Urine Appearance Cloudy Urine pH 5.5 (5.0-9.0) Ur Specific [place] 1.015 (1.005-1.025) Urine Protein Trace (Neg-Trace) mg/dL Urine Glucose (UA) Negative (Negative) mg/dL Urine Ketones Negative (Negative) mg/dL Urine Blood Moderate (2+) H (Negative) Urine Nitrite Positive H (Negative) Ur Leukocyte Esterase Moderate (2+) H (Negative) Urine RBC 6-10 H (0-2) /HPF Urine WBC 21-50 H (0-5) /HPF Ur Squamous Epith Cells 6-10 (0-2) /HPF Urine Bacteria 3+ (None Seen) Hyaline Casts >20 (0-2) /LPF COVID-19 (FRANCY) Positive A (Negative) COVID-19 Clin Com See Note Independent Interpretation I performed an independent interpretation of an: Plain X-Ray Interpretation: Independent interpretation patient's one-view chest x-ray is as follows: No acute infiltrates noted. Radiology Impression Discussion of test interpretation with radiology: I have reviewed the radiologist's reading. Radiologist Impression: XR chest 1V IMPRESSION: No acute abnormality of the chest. Dictated By:Miguel Gong MD Discharge Plan Discharge Patient Disposition: Admitted As Inpatient
--- NOTE | 2022-11-16 15:09 | ECG_ITS ---
Test Reason : SOB Blood Pressure : / mmHG Vent. Rate : 076 BPM Atrial Rate : 076 BPM P-R Int : 156 ms QRS Dur : 076 ms QT Int : 404 ms P-R-T Axes : 047 037 069 degrees QTc Int : 454 ms Normal sinus rhythm Nonspecific T wave abnormality Abnormal ECG When compared with ECG of 01-JUN-2022 10:03, Premature atrial complexes are no longer Present T wave inversion now evident in Anterior leads Referred By: Regulo Fuentes Electronically Signed By:FRANKIE BERNAL
[2022-11-16 16:04] LABS: MANUAL DIFF FLAG NO
[2022-11-16 16:11] LABS: VBG Base Excess 8.8 mmol/L; VBG HCO3 36 mmol/L (22-26); VBG pCO2 66 mmHg; VBG pH 7.34 (7.32-7.43); VBG pO2 42 mmHg
[2022-11-16 16:11] LABS: Venous Blood Gas Refer to POC result
[2022-11-16 16:14] LABS: INTERNATIONAL NORM RATIO 1.1 (0.9-1.1); Prothrombin Time 12.9 SEC (11.1-13.3)
[2022-11-16 16:17] LABS: D Dimer High Sensitivity 480 NG/ML
[2022-11-16 16:17] LABS: Partial Thromboplastin Time 39.4 SEC (26.0-36.4)
[2022-11-16 16:20] LABS: Lactic Acid 0.6 mmol/L (0.5-2.0)
[2022-11-16 16:28] LABS: B Type Natriuretic Peptide 20 pg/mL (<100)
[2022-11-16 16:29] LABS: Appearance Urine Cloudy; Color Urine Yellow; Glucose Urine UA Negative (Negative); Leukocyte Esterase Urine Moderate (2+) (Negative); Nitrite Urine Positive (Negative); PH 5.5 (5.0-9.0); Specific Gravity - Urine 1.015 (1.005-1.025); UMIC TRIGGER UACC YES; Urine Blood Moderate (2+) (Negative); Urine Ketones Negative (Negative); Urine Protein Trace mg/dL (Neg-Trace)
[2022-11-16 16:29] LABS: Alanine Aminotransferase 15 U/L (0-40); Albumin Level 3.7 g/dL (3.5-5.0); Alkaline Phosphatase 60 U/L (39-117); Anion Gap 12 (12-20); Aspartate Amino Transferase 23 U/L (5-37); Bilirubin Total 0.7 mg/dL (0.0-1.0); Blood Urea Nitrogen 16 mg/dL (9-16); Calcium 9.2 mg/dL (8.4-10.2); Carbon Dioxide 34 mmol/L (22-29); Chloride 99 mmol/L (96-108); Estimated Glomerular Filt Rate > 60; Glucose Random 105 mg/dL (60-115); Lipase 27 U/L (8-78); Potassium 4.6 mmol/L (3.3-5.1); Sodium 140 mmol/L (135-145)
[2022-11-16 16:30] LABS: COVID-19 Test Positive (Negative); IDNOW Serial# 08D9AD1C
[2022-11-16 16:30] LABS: C Reactive Protein 9.12 mg/dL (< or = 0.50); Lactate Dehydrogenase 176 U/L (118-273); Phosphorus 4.6 mg/dL (2.7-4.5)
--- NOTE | 2022-11-16 16:36 | MHC.EDTECH ---
THIS PCT ASSUMED CARE OF PT AT 1500 ,EKG TAKEN AND WAS READ BY PROVIDER ,2ND SETS OF BLOOD CULTURE DRAWN AND SENT TO LAB ,PT WAS CHANGE ,CLEAN UP AND REPOSITION WITH PILLOWS ,VITALS SIGN TAKEN ,PT BELONGING LIST DONE .PT RESTING QUIETLY IN BED .
[2022-11-16 16:48] LABS: Basophils Percent Auto 0.3 % (0-2); Eosinophils Percent Auto 0.3 % (0-4); Hematocrit 37.4 % (42.0-52.0); Hemoglobin 11.7 g/dl (14.0-18.0); Imm Gran Abs Auto 0.02 X10*3/uL (0.00-0.03); Imm Gran Pct Auto 0.3 % (0.0-0.4); Lymphocytes Absolute Auto 0.7 X10*3/uL (1.2-4.9); Lymphocytes Percent Auto 11.7 % (20-40); Mean Corpuscular HGB Conc 31.3 g/dl (31.0-36.0); Mean Corpuscular Hemoglobin 30.5 pg (27.0-33.0); Mean Corpuscular Volume 97.4 fL (80.0-98.0); Mean Platelet Volume 11.2 fL (9.4-12.4); Monocytes Absolute Auto 0.6 X10*3/uL (0.1-1.2); Monocytes Percent Auto 10.2 % (2-11); Neutrophils Absolute Auto 4.7 x10*3/uL (2.0-8.3); Neutrophils Percent Auto 77.2 % (45-73); Platelet Count 206 X10*3/uL (160-400); Red Blood Count 3.84 X10*6/uL (4.60-5.80); White Blood Count 6.1 X10*3/uL (4.8-10.8)
[2022-11-16 16:51] LABS: Bacteria Urine 3+ (None Seen); Hyaline Casts Urine >20 /LPF (0-2); UACC Culture Trigger YES; WBC Urine 21-50 /HPF (0-5)
[2022-11-16 16:53] LABS: Ferritin 212 ng/mL (20-250); Procalcitonin 0.09 ng/mL
--- NOTE | 2022-11-16 16:56 | PHA.MEDREC ---
Pharmacy Consult ? Medication Reconciliation Pharmacy has completed the medication reconciliation. [facility] Sunshine Louis, JuanD
[2022-11-16 17:00] LABS: Erythrocyte Sedimentation Rate 53 MM/HR (0-15)
[2022-11-16 17:14] LABS: Troponin-I High Sensitivity < 2.7 ng/L (<3.5-35.0)
[2022-11-16] MEDS: dexAMETHasone sod phosphate 4 MG/ML VIAL 6 MG IVPUSH (17:26)
--- NOTE | 2022-11-16 18:41 | P.HPHOSP_ITS ---
History of Present Illness Date of Service: 11/16/22 Attending physician on admission: Tasneem Jones Chief Complaint: Hypoxia, COVID+ Pt is a 71-year-old male with a PMH significant for?dementia, myasthenia gravis, COPD, CAD, and HLD who presents to the ED from SNF with hypoxia and increasing supplemental O2 demand after testing positive for COVID. Patient is a resident Day [facility] and chronically on 2-3 L O2 at baseline to maintain 94-96% O2. Patient tested positive for COVID earlier today. Patient with advanced dementia, alert and oriented to self only, thus incapable of providing an accurate HPI. In the ED patient had low-grade temp of 100.1 degrees, tachypneic at 27, and satting at 92% on 4 L NC. Labs were significant for stable H&H of 11.7/37.4, ESR elevated at 53, D-dimer 480, bicarb 34, C-reactive protein 9.12. BNP negative at 20. Procalcitonin negative at 0.09. No leukocytosis. Lactic acid WNL at 0.6. UA positive for UTI. Patient tested positive for COVID 19. CXR showed no acute abnormality of the chest. EKG demonstrated normal sinus rhythm without evidence of ST elevations or depressions. Pt was treated with dexamethasone 6 mg IV. ED called SNF to discuss transfer back to facility, but on-call PA was concerned given his multiple comorbidities of myasthenia gravis and COPD that patient might require greater FiO2 concentrations that can be pro dded at the nursing facility. Pt will be admitted to the hospital for treatment of acute hypoxic respiratory failure in the setting of COVID infection. Review of Systems Review of Systems: Unable to obtain due to patient's mentation [facility] Medical History BPH (benign prostatic hyperplasia) Compression fx, lumbar spine Compression fx, thoracic spine Constipation Dementia Dementia Depression GERD (gastroesophageal reflux disease) High cholesterol Myasthenia gravis Urinary retention Surgical History H/O thymectomy Social History Household Members: None Housing: Assisted Living Facility Housing Other:: [facility] Alcohol intake: never Patient Tobacco Use Status: Tobacco use Unknown Use of substances other than those prescribed or required for medical reasons: No Currently Displaying Signs/Symptoms of Drug Intoxication Withdrawal: No Have you been hit, kicked, punched, or otherwise hurt by someone within the past year? If so, by whom?: No Is there a partner from a previous relationship who is making you feel unsafe now?: No Are you made to feel afraid or neglected: No Advance Directives: Yes Advance Directives on File: Yes Advance Directives Date on File: 07/17/21 Do you have thoughts of harming others: None Do you have a plan to hurt others: No Plan Nutrition Risks: No Nutritional Risk service: No Current occupational status: retired and disabled Meds Allergies Allergy/AdvReac Type Severity Reaction Status Date / Time bacitracin Allergy Unknown Verified 07/16/21 12:22 [From Neosporin ([id number])] iodine Allergy Unknown Verified 07/16/21 12:22 neomycin Allergy Unknown Verified 07/16/21 12:22 [From Neosporin ([id number])] polymyxin B Allergy Unknown Verified 07/16/21 12:22 [From Neosporin ([id number])] Home Medications Medication Instructions Recorded Confirmed Last Taken Type albuterol sulfate 90 mcg/actuation 2 puff inhalation Q4H PRN 07/16/21 11/16/22 Unknown History aerosol inhaler Shortness Of Breath atorvastatin 10 mg tablet 1 tab PO BEDTIME 07/16/21 11/16/22 Unknown History cyanocobalamin (vitamin B-12) 1,000 mcg PO DAILY 07/16/21 11/16/22 Unknown History 1,000 mcg capsule gabapentin 300 mg capsule 1 cap PO BID 07/16/21 11/16/22 Unknown History melatonin 3 mg tablet 3 mg PO BEDTIME 07/16/21 11/16/22 Unknown History multivitamin 1 tab PO DAILY 07/16/21 11/16/22 Unknown History omeprazole 20 mg capsule,delayed 1 cap PO DAILY@0630 07/16/21 11/16/22 Unknown History release prednisone 5 mg tablet 1 tab PO DAILY 07/16/21 11/16/22 Unknown History risperidone 0.5 mg tablet 0.5 mg PO BID 07/16/21 11/16/22 Unknown History (Risperdal) sertraline 100 mg tablet 1 tab PO DAILY 07/16/21 11/16/22 Unknown History sertraline 50 mg tablet 1 tab PO DAILY 07/16/21 11/16/22 Unknown History bisacodyl 10 mg rectal suppository 10 mg MS DAILY PRN Constipation 02/09/22 11/16/22 Unknown History sodium phosphates 19 gram-7 118 ml MS BEDTIME PRN Constipation 02/09/22 11/16/22 Unknown History gram/118 mL enema (Fleet Enema) acetaminophen 325 mg tablet 650 mg PO Q4H PRN Fever Or Pain 06/01/22 11/16/22 Unknown History albuterol sulfate 2.5 mg/3 mL 2.5 mg inhalation Q6H PRN Wheezing 06/01/22 11/16/22 Unknown History (0.083 %) solution for nebulization aspirin 81 mg tablet,delayed 81 mg PO DAILY 06/01/22 11/16/22 Unknown History release magnesium hydroxide 400 mg/5 mL 30 ml PO DAILY PRN Constipation 06/01/22 11/16/22 Unknown History oral suspension (Milk of Magnesia) sennosides 8.6 mg-docusate sodium 1 tab PO BID PRN Constipation 06/01/22 11/16/22 Unknown History 50 mg tablet (Senna Plus) midodrine 5 mg tablet 5 mg PO TID@0800,1200,1800 11/16/22 11/16/22 Unknown H istory peg [id number] 1 1 drp ophthalmic (eye) BID 11/16/22 11/16/22 Unknown History %-0.2 %-0.2 % eye drops (Artificial Tears ([id number])) Physical Exam Vital Signs and Narrative: Vital Signs: Last Vital Signs Temp 98.5 F 11/16/22 17:29 Pulse 74 11/16/22 17:29 Resp 18 11/16/22 17:29 BP 111/73 11/16/22 17:29 Pulse Ox 95 11/16/22 17:29 O2 Del Method Nasal Cannula 11/16/22 17:29 O2 Flow Rate 4 11/16/22 17:29 Oxygen Flow Rate 4 11/16/22 13:10 BMI result Body Mass Index 28.5 Constitutional: Alert, confused, in no acute distress. Mental Status: Oriented to person only. Eyes: Pupils are equal, round, and reactive to light. Ear, Nose, and Throat: Oropharynx clear, mucous membranes moist. Ears and nose without deformities. Trachea midline. Respiratory: Diffuse expiratory wheezing bilaterally. Cardiovascular: S1, S2 regular. No murmurs, rubs, or gallops. Gastrointestinal: Abdomen soft, non-tender, non-distended. Normal bowel sounds. Neurologic: Cranial nerves II-XII are grossly intact bilaterally. No focal neurological deficits. Moves all extremities spontaneously. Significant resting tremor of upper right extremity and lower left extremity, at baseline. Skin: Bruising of dorsal aspect of left hand at IV site. Musculoskeletal: No cyanosis or clubbing. Extremities: 1+ bilateral lower leg pitting edema. Psychiatric: Confused, cooperative. Results Labs 11/16/22 15:58 11/16/22 15:58 Labs: Laboratory Results - last 24 hr 11/16/22 11/16/22 11/16/22 15:58 15:58 15:58 MCV 97.4 MCH 30.5 MCHC 31.3 RDW 14.0 Plt Count 206 MPV 11.2 Immature Gran % (Auto) 0.3 Neut % (Auto) 77.2 H Lymph % (Auto) 11.7 L [place] % (Auto) 10.2 Eos % (Auto) 0.3 Baso % (Auto) 0.3 Lymph # (Auto) 0.7 L [place] # (Auto) 0.6 Eos # (Auto) 0.0 Baso # (Auto) 0.0 Abs Immat Gran (auto) 0.02 Absolute Neuts (auto) 4.7 Absolute Nucleated RBC 0.000 Nucleated RBC % (auto) 0.0 ESR PT INR APTT D-Dimer High Sensitivty 480 VBG pH VBG pCO2 VBG pO2 VBG HCO3 VBG O2 Saturation VBG Base Excess Anion Gap Estim Creat Clear Calc Estimated GFR Random Glucose Lactic Acid Calcium Phosphorus 4.6 H Magnesium 2.0 Ferritin Total Bilirubin AST ALT Alkaline Phosphatase Lactate Dehydrogenase 176 Total Creatine Kinase 33 L C-Reactive Protein 9.12 H B-Natriuretic Peptide Total Protein Albumin Lipase Procalcitonin 0.09 Urine Color Urine Appearance Urine pH Ur Specific [place] Urine Protein Urine Glucose (UA) Urine Ketones Urine Blood Urine Nitrite Ur Leukocyte Esterase Urine RBC Urine WBC Ur Squamous Epith Cells Urine Bacteria Hyaline Casts COVID-19 (FRANCY) COVID-19 Clin Com 11/16/22 11/16/22 11/16/22 15:58 15:58 15:59 MCV MCH MCHC RDW Plt Count MPV Immature Gran % (Auto) Neut % (Auto) Lymph % (Auto) [place] % (Auto) Eos % (Auto) Baso % (Auto) Lymph # (Auto) [place] # (Auto) Eos # (Auto) Baso # (Auto) Abs Immat Gran (auto) Absolute Neuts (auto) Absolute Nucleated RBC Nucleated RBC % (auto) ESR 53 H PT 12.9 INR 1.1 APTT 39.4 H D-Dimer High Sensitivty VBG pH VBG pCO2 VBG pO2 VBG HCO3 VBG O2 Saturation VBG Base Excess Anion Gap 12 Estim Creat Clear Calc 110.0 Estimated GFR > 60 Random Glucose 105 Lactic Acid Calcium 9.2 Phosphorus Magnesium Ferritin 212 Total Bilirubin 0.7 AST 23 ALT 15 Alkaline Phosphatase 60 Lactate Dehydrogenase Total Creatine Kinase C-Reactive Protein B-Natriuretic Peptide Total Protein 7.0 Albumin 3.7 Lipase 27 Procalcitonin Urine Color Urine Appearance Urine pH Ur Specific [place] Urine Protein Urine Glucose (UA) Urine Ketones Urine Blood Urine Nitrite Ur Leukocyte Esterase Urine RBC Urine WBC Ur Squamous Epith Cells Urine Bacteria Hyaline Casts COVID-19 (FRANCY) COVID-19 [employer] 11/16/22 11/16/22 11/16/22 15:59 15:59 16:00 MCV MCH MCHC RDW Plt Count MPV Immature Gran % (Auto) Neut % (Auto) Lymph % (Auto) [place] % (Auto) Eos % (Auto) Baso % (Auto) Lymph # (Auto) [place] # (Auto) Eos # (Auto) Baso # (Auto) Abs Immat Gran (auto) Absolute Neuts (auto) Absolute Nucleated RBC Nucleated RBC % (auto) ESR PT INR APTT D-Dimer High Sensitivty VBG pH VBG pCO2 VBG pO2 VBG HCO3 VBG O2 Saturation VBG Base Excess Anion Gap Estim Creat Clear Calc Estimated GFR Random Glucose Lactic Acid 0.6 Calcium Phosphorus Magnesium Ferritin Total Bilirubin AST ALT Alkaline Phosphatase Lactate Dehydrogenase Total Creatine Kinase C-Reactive Protein B-Natriuretic Peptide 20 Total Protein Albumin Lipase Procalcitonin Urine Color Urine Appearance Urine pH Ur Specific [place] Urine Protein Urine Glucose (UA) Urine Ketones Urine Blood Urine Nitrite Ur Leukocyte Esterase Urine RBC Urine WBC Ur Squamous Epith Cells Urine Bacteria Hyaline Casts COVID-19 (FRANCY) Positive A COVID-19 Clin Com See Note 11/16/22 11/16/22 16:00 16:05 MCV MCH MCHC RDW Plt Count MPV Immature Gran % (Auto) Neut % (Auto) Lymph % (Auto) [place] % (Auto) Eos % (Auto) Baso % (Auto) Lymph # (Auto) [place] # (Auto) Eos # (Auto) Baso # (Auto) Abs Immat Gran (auto) Absolute Neuts (auto) Absolute Nucleated RBC Nucleated RBC % (auto) ESR PT INR APTT D-Dimer High Sensitivty VBG pH 7.34 VBG pCO2 66 VBG pO2 42 VBG HCO3 36 H VBG O2 Saturation 59.0 VBG Base Excess 8.8 Anion Gap Estim Creat Clear Calc Estimated GFR Random Glucose Lactic Acid Calcium Phosphorus Magnesium Ferritin Total Bilirubin AST ALT Alkaline Phosphatase Lactate Dehydrogenase Total Creatine Kinase C-Reactive Protein B-Natriuretic Peptide Total Protein Albumin Lipase Procalcitonin Urine Color Yellow Urine Appearance Cloudy Urine pH 5.5 Ur Specific [place] 1.015 Urine Protein Trace Urine Glucose (UA) Negative Urine Ketones Negative Urine Blood Moderate (2+) H Urine Nitrite Positive H Ur Leukocyte Esterase Moderate (2+) H Urine RBC 6-10 H Urine WBC 21-50 H Ur Squamous Epith Cells 6-10 Urine Bacteria 3+ Hyaline Casts >20 COVID-19 (FRANCY) COVID-19 Clin Com Imaging Radiologist's Impressions: Impressions Chest X-Ray 11/16/22 15:36 IMPRESSION: No acute abnormality of the chest. Assessment and Plan (1) COVID-19: Status: Acute (2) Hypoxic: Status: Acute (3) UTI (urinary tract infection): Status: Acute Plan Pt is a 71-year-old male with a PMH significant for?dementia, myasthenia gravis, COPD, CAD, and HLD who presents to the ED from SNF with hypoxia and increasing supplemental O2 demand after testing positive for COVID. Patient is a resident [facility] and chronically on 2-3 L O2 at baseline to maintain 94-96% O2. Pt will be admitted to the hospital for treatment of acute hypoxic respiratory failure in the setting of COVID infection. Acute hypoxic respiratory failure in the setting of COVID infection Patient satting at 86% O2 on RA, improved 94% on 4 L which is above baseline of 2 L Tested positive for COVID today CXR negative for PNA, procalcitonin negative Dexamethasone 6 mg IV q.d. DuoNebs Will hold off on remdesivir for now pending ID consult input Titrate O2 >92, wean as tolerated Patient does not meet UTI UA postive for UTI, pt with chronic [place] Pt with hx of Pseudomonas infection Will treat for now with cefepime Follow cultures Myasthenia gravis Will be on dexamethasone Hold home prednisone Presumed orthostatic hypotension Continue midodrine Mood disorder Continue home meds HLD Continue statin DNR/DNI Attending:?Dr. Jones DVT Prophylaxis: Lovenox Pt will require a hospitalization of at least two nights for treatment of?acute hypoxic respiratory failure in the setting of COVID requiring IV systemic steroids and additional O2 supplementation. Time Spent With Patient Time: Total time managing care of this patient today ____ minutes. Quality Stroke Does the patient have a stroke diagnosis?: No VTE Prior VTE?: No VTE Risk Level:: Medical - moderate - high VTE Device Contraindication: Treatment Not Indicated VTE Drug Contraindication: N/A - Med Ordered
[2022-11-16] MEDS: Albuterol/Iprat 2.5/0.5MG 3 ML AMPUL.NEB INHALE (19:51)
--- NOTE | 2022-11-16 20:55 | MHC.EDTECH ---
VS/rounds completed, Pt ate meal , call button within reach.
[2022-11-16] MEDS: risperiDONE 0.5 MG TABLET PO (22:57)
[2022-11-16] MEDS: Enoxaparin Sodium 40 MG/0.4 ML SYRINGE SUBCUT (22:57)
[2022-11-16] MEDS: Atorvastatin Calcium 10 MG TABLET PO (22:58)
[2022-11-16] MEDS: Melatonin 3 MG TABLET PO (22:58)
[2022-11-16] MEDS: Gabapentin 300 MG CAPSULE PO (22:58)
[2022-11-16] MEDS: cefEPime HCl 1 GM in 0.9 % Sodium Chloride 50 ML IV (22:58)
[2022-11-17] VITALS (8 sets, daily range): BP systolic 120–140; BP diastolic 50–92; PULSE 8–88; RESP 16–20; TEMP 36.2–37.1; O2SAT 92–99
[2022-11-17] MEDS: Omeprazole 20 MG CAPSULE.DR PO (05:51)
[2022-11-17] MEDS: 0.9 % Sodium Chloride Flush 3 ML SYRINGE IVFLUSH ×3 (05:51→18:44)
[2022-11-17 06:35] LABS: Hematocrit 36.6 % (42.0-52.0); Hemoglobin 11.5 g/dl (14.0-18.0); Mean Corpuscular HGB Conc 31.4 g/dl (31.0-36.0); Mean Corpuscular Hemoglobin 30.3 pg (27.0-33.0); Mean Corpuscular Volume 96.3 fL (80.0-98.0); Mean Platelet Volume 10.9 fL (9.4-12.4); Platelet Count 189 X10*3/uL (160-400); Red Cell Distribution Width 13.6 % (11.0-16.0); White Blood Count 3.9 X10*3/uL (4.8-10.8)
[2022-11-17 06:58] LABS: Anion Gap 12 (12-20); Blood Urea Nitrogen 18 mg/dL (9-16); Calcium 9.3 mg/dL (8.4-10.2); Carbon Dioxide 33 mmol/L (22-29); Chloride 99 mmol/L (96-108); Creatinine Clr Calc Pharmacy 114.3; Estimated Glomerular Filt Rate > 60; Glucose Random 126 mg/dL (60-115); Sodium 140 mmol/L (135-145)
[2022-11-17] MEDS: Albuterol/Iprat 2.5/0.5MG 3 ML AMPUL.NEB INHALE ×4 (07:56→19:54)
[2022-11-17] MEDS: Aspirin Enteric Coated 81 MG TABLET.DR PO (09:59)
[2022-11-17] MEDS: Sertraline HCL 50 MG TABLET PO (09:59)
[2022-11-17] MEDS: Multivitamin TABLET 1 TAB PO (09:59)
[2022-11-17] MEDS: Midodrine HCl 5 MG TABLET PO ×3 (09:59→18:44)
[2022-11-17] MEDS: risperiDONE 0.5 MG TABLET PO ×2 (09:59→20:24)
[2022-11-17] MEDS: Sertraline HCL 100 MG TABLET PO (09:59)
[2022-11-17] MEDS: Gabapentin 300 MG CAPSULE PO ×2 (09:59→20:25)
[2022-11-17] MEDS: cefEPime HCl 1 GM in 0.9 % Sodium Chloride 50 ML IV ×2 (10:00→20:26)
[2022-11-17] MEDS: Cyanocobalamin (Vitamin B-12) 1,000 MCG TABLET 1000 MCG PO (10:00)
--- NOTE | 2022-11-17 12:50 | MHC.CM.PN ---
IMM 11/17/22 DELIVERED TO SON/HCP BAR [phone] AND WILL BE MAILED PER DISCUSSION, BAR UPDATED ON PT'S STATUS AND PLAN WILL BE FOR PT TO RETURN TO LTC AT [facility]. PCP/HCP ON FILE VERIFIED AND CORRECT.
--- NOTE | 2022-11-17 13:05 | HO.PM.IMPN ---
Subjective Subjective Date of Service: 11/17/22 Interval History: Seen and evaluated this morning Feels more comfortable this morning Still requiring more than baseline O2 having resting tremors No fever , chills or chest pain Review of Systems Review of Systems: Yes all other systems are reviewed and are negative Physical Exam Vital Signs: Vital Signs: Last Vital Signs Temp 98.7 F 11/17/22 07:43 Pulse 88 11/17/22 11:58 Resp 18 11/17/22 11:58 BP 120/84 11/17/22 07:43 Pulse Ox 98 11/17/22 07:43 O2 Del Method Nasal Cannula 11/17/22 07:43 O2 Flow Rate 4 11/17/22 07:43 Oxygen Flow Rate 4 11/16/22 13:10 BMI result Body Mass Index 28.5 Const: Other: Constitutional : Awake, interactive, not in distress Neck : Normal inspection, Supple Cardiovascular : RRR, no JVP, no lower extremity edema Respiratory : decreased bilateral air entry mainly at the bases, bilateral expiratory rhonchi Gastrointestinal: soft, lax, Normal bowel sounds, Non tender Skin : Warm, Dry Neurological : Alert & oriented to self, No focal deficit Objective Data Active Medications Acetaminophen (Acetaminophen 325 Mg Tablet) 650 mg PO Q6H PRN PRN Reason: Pain, Mild (Pain Scale 1-3) Albuterol Sulfate (Albuterol Sulfate (0.083%) 2.5 Mg/3 Ml Vial.Neb) 2.5 mg INHALE Q6H PRN PRN Reason: Wheezing Albuterol Sulfate (Albuterol Sulfate 90 Mcg 8 Gm Inhaler) 2 puff INHALE Q4H PRN PRN Reason: Shortness Of Breath Albuterol/Ipratropium (Albuterol/Iprat 2.5/0.5mg 3 Ml Ampul.Neb) 3 ml INHALE RQ4H WHILE AWAKE [facility] Last Admin: 11/17/22 11:57 Dose: 3 ml Documented By: NICK Artificial Tears (Artificial Tears 15 Ml Drops) 1 drop EYE-BOTH BID [facility] Last Admin: 11/17/22 10:08 Dose: Not Given Documented By: GARCÍA Non-Admin Reason: Med Not Available Aspirin (Aspirin Enteric Coated 81 Mg Tablet.) 81 mg PO DAILY [facility] Last Admin: 11/17/22 09:59 Dose: 81 mg Documented By: GARCÍA Atorvastatin Calcium (Atorvastatin Calcium 10 Mg Tablet) 10 mg PO BEDTIME [facility] Last Admin: 11/16/22 22:58 Dose: 10 mg Documented By: MOY Bisacodyl (Bisacodyl 10 Mg Supp.Rect) [address] DAILY PRN PRN Reason: Constipation Cyanocobalamin (Cyanocobalamin (Vitamin B-12) 1,000 Mcg Tablet) 1,000 mcg PO DAILY [facility] Last Admin: 11/17/22 10:00 Dose: 1,000 mcg Documented By: GARCÍA Dexamethasone Sodium Phosphate (Dexamethasone Sod Phosphate 4 Mg/Ml Vial) 6 mg IVPUSH Q24H [facility] Enoxaparin Sodium (Enoxaparin Sodium 40 Mg/0.4 Ml Syringe) 40 mg SUBCUT Q24H [facility] Last Admin: 11/16/22 22:57 Dose: 40 mg Documented By: MOY Gabapentin (Gabapentin 300 Mg Capsule) 300 mg PO BID [facility] Last Admin: 11/17/22 09:59 Dose: 300 mg Documented By: GARCÍA Cefepime HCl 1 gm/ Sodium (Chloride) 50 mls @ 100 mls/hr IV Q12H [facility] Last Infusion: 11/17/22 10:38 Dose: 0 mls/hr Documented By: GARCÍA Magnesium Hydroxide (Milk Of Magnesia 30 Ml Oral.Susp) 30 ml PO DAILY PRN PRN Reason: Constipation Melatonin (Melatonin 3 Mg Tablet) 3 mg PO BEDTIME [facility] Last Admin: 11/16/22 22:58 Dose: 3 mg Documented By: MOY Midodrine (Midodrine Hcl 5 Mg Tablet) 5 mg PO TID@0800,1200,1800 [facility] Last Admin: 11/17/22 09:59 Dose: 5 mg Documented By: GARCÍA Multivitamins/Vitamin C (Multivitamin Tablet) 1 tab PO DAILY [facility] Last Admin: 11/17/22 09:59 Dose: 1 tab Documented By: GARCÍA Omeprazole (Omeprazole 20 Mg Capsule.) 20 mg PO DAILY@0630 [facility] Last Admin: 11/17/22 05:51 Dose: 20 mg Documented By: MOY Ondansetron HCl (Ondansetron Hcl 4 Mg/2 Ml Vial) 4 mg IVPUSH Q8H PRN PRN Reason: Nausea and Vomiting Risperidone (Risperidone 0.5 Mg Tablet) 0.5 mg PO BID [facility] Last Admin: 11/17/22 09:59 Dose: 0.5 mg Documented By: GARCÍA Senna/Docusate Sodium (Sennosides/Docusate Sodium Tablet) 1 tab PO BID PRN PRN Reason: Constipation Sertraline HCl (Sertraline Hcl 50 Mg Tablet) 50 mg PO DAILY [facility] Last Admin: 11/17/22 09:59 Dose: 50 mg Documented By: GARCÍA Sertraline HCl (Sertraline Hcl 100 Mg Tablet) 100 mg PO DAILY [facility] Last Admin: 11/17/22 09:59 Dose: 100 mg Documented By: GARCÍA Sodium Biphosphate/Sodium Phosphate (Sodium Phosphate,[place]-Dibasic 133 Ml Enema) [address] BEDTIME PRN PRN Reason: Constipation Sodium Chloride (0.9 % Sodium Chloride Flush 3 Ml Syringe) 3 ml IVFLUSH QSHIFT [facility] Last Admin: 11/17/22 10:00 Dose: 3 ml Documented By: GARCÍA Labs 11/17/22 06:03 11/17/22 06:03 Labs: Laboratory Results - last 24 hr 11/16/22 11/16/22 11/16/22 15:58 15:58 15:58 MCV 97.4 MCH 30.5 MCHC 31.3 RDW 14.0 Plt Count 206 MPV 11.2 Immature Gran % (Auto) 0.3 Neut % (Auto) 77.2 H Lymph % (Auto) 11.7 L [place] % (Auto) 10.2 Eos % (Auto) 0.3 Baso % (Auto) 0.3 Lymph # (Auto) 0.7 L [place] # (Auto) 0.6 Eos # (Auto) 0.0 Baso # (Auto) 0.0 Abs Immat Gran (auto) 0.02 Absolute Neuts (auto) 4.7 Absolute Nucleated RBC 0.000 Nucleated RBC % (auto) 0.0 ESR PT INR APTT D-Dimer High Sensitivty 480 VBG pH VBG pCO2 VBG pO2 VBG HCO3 VBG O2 Saturation VBG Base Excess Anion Gap Estim Creat Clear Calc Estimated GFR Random Glucose Lactic Acid Calcium Phosphorus 4.6 H Magnesium 2.0 Ferritin Total Bilirubin AST ALT Alkaline Phosphatase Lactate Dehydrogenase 176 Total Creatine Kinase 33 L C-Reactive Protein 9.12 H B-Natriuretic Peptide Total Protein Albumin Lipase Procalcitonin 0.09 Urine Color Urine Appearance Urine pH Ur Specific [place] Urine Protein Urine Glucose (UA) Urine Ketones Urine Blood Urine Nitrite Ur Leukocyte Esterase Urine RBC Urine WBC Ur Squamous Epith Cells Urine Bacteria Hyaline Casts COVID-19 (FRANCY) COVID-19 Clin Com 11/16/22 11/16/22 11/16/22 15:58 15:58 15:59 MCV MCH MCHC RDW Plt Count MPV Immature Gran % (Auto) Neut % (Auto) Lymph % (Auto) [place] % (Auto) Eos % (Auto) Baso % (Auto) Lymph # (Auto) [place] # (Auto) Eos # (Auto) Baso # (Auto) Abs Immat Gran (auto) Absolute Neuts (auto) Absolute Nucleated RBC Nucleated RBC % (auto) ESR 53 H PT 12.9 INR 1.1 APTT 39.4 H D-Dimer High Sensitivty VBG pH VBG pCO2 VBG pO2 VBG HCO3 VBG O2 Saturation VBG Base Excess Anion Gap 12 Estim Creat Clear Calc 110.0 Estimated GFR > 60 Random Glucose 105 Lactic Acid Calcium 9.2 Phosphorus Magnesium Ferritin 212 Total Bilirubin 0.7 AST 23 ALT 15 Alkaline Phosphatase 60 Lactate Dehydrogenase Total Creatine Kinase C-Reactive Protein B-Natriuretic Peptide Total Protein 7.0 Albumin 3.7 Lipase 27 Procalcitonin Urine Color Urine Appearance Urine pH Ur Specific [place] Urine Protein Urine Glucose (UA) Urine Ketones Urine Blood Urine Nitrite Ur Leukocyte Esterase Urine RBC Urine WBC Ur Squamous Epith Cells Urine Bacteria Hyaline Casts COVID-19 (FRANCY) COVID-19 Clin Com 11/16/22 11/16/22 11/16/22 15:59 15:59 16:00 MCV MCH MCHC RDW Plt Count MPV Immature Gran % (Auto) Neut % (Auto) Lymph % (Auto) [place] % (Auto) Eos % (Auto) Baso % (Auto) Lymph # (Auto) [place] # (Auto) Eos # (Auto) Baso # (Auto) Abs Immat Gran (auto) Absolute Neuts (auto) Absolute Nucleated RBC Nucleated RBC % (auto) ESR PT INR APTT D-Dimer High Sensitivty VBG pH VBG pCO2 VBG pO2 VBG HCO3 VBG O2 Saturation VBG Base Excess Anion Gap Estim Creat Clear Calc Estimated GFR Random Glucose Lactic Acid 0.6 Calcium Phosphorus Magnesium Ferritin Total Bilirubin AST ALT Alkaline Phosphatase Lactate Dehydrogenase Total Creatine Kinase C-Reactive Protein B-Natriuretic Peptide 20 Total Protein Albumin Lipase Procalcitonin Urine Color Urine Appearance Urine pH Ur Specific [place] Urine Protein Urine Glucose (UA) Urine Ketones Urine Blood Urine Nitrite Ur Leukocyte Esterase Urine RBC Urine WBC Ur Squamous Epith Cells Urine Bacteria Hyaline Casts COVID-19 (FRANCY) Positive A COVID-19 Clin Com See Note 11/16/22 11/16/22 11/17/22 16:00 16:05 06:03 MCV 96.3 MCH 30.3 MCHC 31.4 RDW 13.6 Plt Count 189 MPV 10.9 Immature Gran % (Auto) Neut % (Auto) Lymph % (Auto) [place] % (Auto) Eos % (Auto) Baso % (Auto) Lymph # (Auto) [place] # (Auto) Eos # (Auto) Baso # (Auto) Abs Immat Gran (auto) Absolute Neuts (auto) Absolute Nucleated RBC 0.000 Nucleated RBC % (auto) 0.0 ESR PT INR APTT D-Dimer High Sensitivty VBG pH 7.34 VBG pCO2 66 VBG pO2 42 VBG HCO3 36 H VBG O2 Saturation 59.0 VBG Base Excess 8.8 Anion Gap Estim Creat Clear Calc Estimated GFR Random Glucose Lactic Acid Calcium Phosphorus Magnesium Ferritin Total Bilirubin AST ALT Alkaline Phosphatase Lactate Dehydrogenase Total Creatine Kinase C-Reactive Protein B-Natriuretic Peptide Total Protein Albumin Lipase Procalcitonin Urine Color Yellow Urine Appearance Cloudy Urine pH 5.5 Ur Specific [place] 1.015 Urine Protein Trace Urine Glucose (UA) Negative Urine Ketones Negative Urine Blood Moderate (2+) H Urine Nitrite Positive H Ur Leukocyte Esterase Moderate (2+) H Urine RBC 6-10 H Urine WBC 21-50 H Ur Squamous Epith Cells 6-10 Urine Bacteria 3+ Hyaline Casts >20 COVID-19 (FRANCY) COVID-19 Clin Com 11/17/22 06:03 MCV MCH MCHC RDW Plt Count MPV Immature Gran % (Auto) Neut % (Auto) Lymph % (Auto) [place] % (Auto) Eos % (Auto) Baso % (Auto) Lymph # (Auto) [place] # (Auto) Eos # (Auto) Baso # (Auto) Abs Immat Gran (auto) Absolute Neuts (auto) Absolute Nucleated RBC Nucleated RBC % (auto) ESR PT INR APTT D-Dimer High Sensitivty VBG pH VBG pCO2 VBG pO2 VBG HCO3 VBG O2 Saturation VBG Base Excess Anion Gap 12 Estim Creat Clear Calc 114.3 Estimated GFR > 60 Random Glucose 126 H Lactic Acid Calcium 9.3 Phosphorus Magnesium Ferritin Total Bilirubin AST ALT Alkaline Phosphatase Lactate Dehydrogenase Total Creatine Kinase C-Reactive Protein B-Natriuretic Peptide Total Protein Albumin Lipase Procalcitonin Urine Color Urine Appearance Urine pH Ur Specific [place] Urine Protein Urine Glucose (UA) Urine Ketones Urine Blood Urine Nitrite Ur Leukocyte Esterase Urine RBC Urine WBC Ur Squamous Epith Cells Urine Bacteria Hyaline Casts COVID-19 (FRANCY) COVID-19 Clin Com Microbiology Microbiology Results: Microbiology 11/16/22 Unknown Urine Culture - Preliminary Urine Catheterized - [place] Catheter Culture too young to evaluate. Assessment and Plan (1) UTI (urinary tract infection): Status: Acute (2) COVID-19: Status: Acute (3) Hypoxic: Status: Acute Plan Pt is a 71-year-old male with a PMH significant for?dementia, myasthenia gravis, COPD, CAD, and HLD who presents to the ED from SNF with hypoxia and increasing supplemental O2 demand after testing positive for COVID. Patient is a resident [facility] and chronically on 2-3 L O2 at baseline to maintain 94-96% O2. Pt will be admitted to the hospital for treatment of acute hypoxic respiratory failure in the setting of COVID infection. Acute hypoxic respiratory failure in the setting of COVID infection improving Dexamethasone 6 mg IV q.d. DuoNebs pending ID consult Titrate O2 >92, wean as tolerated UTI 2/2 chronic indwelling Ar[place]o hx of Pseudomonas UTI Continue with cefepime Follow cultures Myasthenia gravis on dexamethasone Hold home prednisone Presumed orthostatic hypotension Continue midodrine Mood disorder Continue home meds HLD Continue statin DNR/DNI DVT Prophylaxis: Lovenox Pt will require a hospitalization overnight for treatment of?acute hypoxic respiratory failure in the setting of COVID requiring IV systemic steroids and additional O2 supplementation. Time Spent With Patient Time: Total time managing care of this patient today ____ minutes. Quality Stroke Does the patient have a stroke diagnosis?: No VTE Prior VTE?: No VTE Risk Level:: Medical - moderate - high VTE Device Contraindication: Treatment Not Indicated VTE Drug Contraindication: N/A - Med Ordered
[2022-11-17] MEDS: dexAMETHasone sod phosphate 4 MG/ML VIAL 6 MG IVPUSH (16:18)
[2022-11-17] MEDS: Enoxaparin Sodium 40 MG/0.4 ML SYRINGE SUBCUT (20:25)
[2022-11-17] MEDS: Melatonin 3 MG TABLET PO (20:25)
[2022-11-17] MEDS: Atorvastatin Calcium 10 MG TABLET PO (20:25)
--- NOTE | 2022-11-17 23:29 | P.CNID_ITS ---
History of Present Illness Data of Consult Service Date: 11/17/22 Requesting physician: Tasneem Jones Primary Care Provider: MARCELA SALGADO HPI Reason for consult: positive Pseudomonas concern,COVID hypoxia He presnts from [facility] with shortness of breath and hypoxia COVID di agnosis. He has had concern over Pseudomonas UTI as well. Review of Systems Review of Systems: Yes Unobtainable due to mental condition PMFSH Past Medical History Medical History BPH (benign prostatic hyperplasia) Compression fx, lumbar spine Compression fx, thoracic spine Constipation Dementia Dementia Depression GERD (gastroesophageal reflux disease) High cholesterol Myasthenia gravis Urinary retention Family History Family history: reviewed and not pertinent Surgical History Surgical History H/O thymectomy Social History Social History Household Members: None Housing: Assisted Living Facility Housing Other:: [facility] Alcohol intake: never Patient Tobacco Use Status: Tobacco use Unknown Use of substances other than those prescribed or required for medical reasons: No Currently Displaying Signs/Symptoms of Drug Intoxication Withdrawal: No Have you been hit, kicked, punched, or otherwise hurt by someone within the past year? If so, by whom?: No Is there a partner from a previous relationship who is making you feel unsafe now?: No Are you made to feel afraid or neglected: No Advance Directives: Yes Advance Directives on File: Yes Advance Directives Date on File: 07/17/21 Do you have thoughts of harming others: None Do you have a plan to hurt others: No Plan Nutrition Risks: No Nutritional Risk service: No Current occupational status: retired and disabled Meds Allergies Allergy/AdvReac Type Severity Reaction Status Date / Time bacitracin Allergy Unknown Verified 07/16/21 12:22 [From Neosporin ([id number])] iodine Allergy Unknown Verified 07/16/21 12:22 neomycin Allergy Unknown Verified 07/16/21 12:22 [From Neosporin ([id number])] polymyxin B Allergy Unknown Verified 07/16/21 12:22 [From Neosporin ([id number])] Active Medications: Current Medications Acetaminophen (Acetaminophen 325 Mg Tablet) 650 mg PO Q6H PRN PRN Reason: Pain, Mild (Pain Scale 1-3) Albuterol Sulfate (Albuterol Sulfate (0.083%) 2.5 Mg/3 Ml Vial.Neb) 2.5 mg INHALE Q6H PRN PRN Reason: Wheezing Albuterol Sulfate (Albuterol Sulfate 90 Mcg 8 Gm Inhaler) 2 puff INHALE Q4H PRN PRN Reason: Shortness Of Breath Albuterol/Ipratropium (Albuterol/Iprat 2.5/0.5mg 3 Ml Ampul.Neb) 3 ml INHALE RQ4H WHILE AWAKE [facility] Last Admin: 11/17/22 19:54 Dose: 3 ml Artificial Tears (Artificial Tears 15 Ml Drops) 1 drop EYE-BOTH BID [facility] Last Admin: 11/17/22 20:53 Dose: Not Given Aspirin (Aspirin Enteric Coated 81 Mg Tablet.) 81 mg PO DAILY [facility] Last Admin: 11/17/22 09:59 Dose: 81 mg Atorvastatin Calcium (Atorvastatin Calcium 10 Mg Tablet) 10 mg PO BEDTIME [facility] Last Admin: 11/17/22 20:25 Dose: 10 mg Bisacodyl (Bisacodyl 10 Mg Supp.Rect) 10 mg IA DAILY PRN PRN Reason: Constipation Cyanocobalamin (Cyanocobalamin (Vitamin B-12) 1,000 Mcg Tablet) 1,000 mcg PO DA JOANNE [facility] Last Admin: 11/17/22 10:00 Dose: 1,000 mcg Dexamethasone Sodium Phosphate (Dexamethasone Sod Phosphate 4 Mg/Ml Vial) 6 mg IVPUSH Q24H [facility] Last Admin: 11/17/22 16:18 Dose: 6 mg Enoxaparin Sodium (Enoxaparin Sodium 40 Mg/0.4 Ml Syringe) 40 mg SUBCUT Q24H [facility] Last Admin: 11/17/22 20:25 Dose: 40 mg Gabapentin (Gabapentin 300 Mg Capsule) 300 mg PO BID [facility] Last Admin: 11/17/22 20:25 Dose: 300 mg Cefepime HCl 1 gm/ Sodium (Chloride) 50 mls @ 100 mls/hr IV Q12H [facility] Last Infusion: 11/17/22 21:16 Dose: Infused Magnesium Hydroxide (Milk Of Magnesia 30 Ml Oral.Susp) 30 ml PO DAILY PRN PRN Reason: Constipation Melatonin (Melatonin 3 Mg Tablet) 3 mg PO BEDTIME [facility] Last Admin: 11/17/22 20:25 Dose: 3 mg Midodrine (Midodrine Hcl 5 Mg Tablet) 5 mg PO TID@0800,1200,1800 [facility] Last Admin: 11/17/22 18:44 Dose: 5 mg Multivitamins/Vitamin C (Multivitamin Tablet) 1 tab PO DAILY [facility] Last Admin: 11/17/22 09:59 Dose: 1 tab Omeprazole (Omeprazole 20 Mg Capsule.Dr) 20 mg PO DAILY@0630 [facility] Last Admin: 11/17/22 05:51 Dose: 20 mg Ondansetron HCl (Ondansetron Hcl 4 Mg/2 Ml Vial) 4 mg IVPUSH Q8H PRN PRN Reason: Nausea and Vomiting Risperidone (Risperidone 0.5 Mg Tablet) 0.5 mg PO BID [facility] Last Admin: 11/17/22 20:24 Dose: 0.5 mg Senna/Docusate Sodium (Sennosides/Docusate Sodium Tablet) 1 tab PO BID PRN PRN Reason: Constipation Sertraline HCl (Sertraline Hcl 50 Mg Tablet) 50 mg PO DAILY [facility] Last Admin: 11/17/22 09:59 Dose: 50 mg Sertraline HCl (Sertraline Hcl 100 Mg Tablet) 100 mg PO DAILY [facility] Last Admin: 11/17/22 09:59 Dose: 100 mg Sodium Biphosphate/Sodium Phosphate (Sodium Phosphate,[place]-Dibasic 133 Ml Enema) 118 ml IA BEDTIME PRN PRN Reason: Constipation Sodium Chloride (0.9 % Sodium Chloride Flush 3 Ml Syringe) 3 ml IVFLUSH QSHIFT [facility] Last Admin: 11/17/22 18:44 Dose: 3 ml Home Medications Medication Instructions Recorded Confirmed Last Taken Type albuterol sulfate 90 mcg/actuation 2 puff inhalation Q4H PRN 07/16/21 11/16/22 Unknown History aerosol inhaler Shortness Of Breath atorvastatin 10 mg tablet 1 tab PO BEDTIME 07/16/21 11/16/22 Unknown History cyanocobalamin (vitamin B-12) 1,000 mcg PO DAILY 07/16/21 11/16/22 Unknown History 1,000 mcg capsule gabapentin 300 mg capsule 1 cap PO BID 07/16/21 11/16/22 Unknown History melatonin 3 mg tablet 3 mg PO BEDTIME 07/16/21 11/16/22 Unknown History multivitamin 1 tab PO DAILY 07/16/21 11/16/22 Unknown History omeprazole 20 mg capsule,delayed 1 cap PO DAILY@0630 07/16/21 11/16/22 Unknown History release prednisone 5 mg tablet 1 tab PO DAILY 07/16/21 11/16/22 Unknown History risperidone 0.5 mg tablet 0.5 mg PO BID 07/16/21 11/16/22 Unknown History (Risperdal) sertraline 100 mg tablet 1 tab PO DAILY 07/16/21 11/16/22 Unknown History sertraline 50 mg tablet 1 tab PO DAILY 07/16/21 11/16/22 Unknown History bisacodyl 10 mg rectal suppository 10 mg IA DAILY PRN Constipation 02/09/22 11/16/22 Unknown History sodium phosphates 19 gram-7 118 ml IA BEDTIME PRN Constipation 02/09/22 11/16/22 Unknown History gram/118 mL enema (Fleet Enema) acetaminophen 325 mg tablet 650 mg PO Q4H PRN Fever Or Pain 06/01/22 11/16/22 Unknown History albuterol sulfate 2.5 mg/3 mL 2.5 mg inhalation Q6H PRN Wheezing 06/01/22 11/16/22 Unknown History (0.083 %) solution for nebulization aspirin 81 mg tablet,delayed 81 mg PO DAILY 06/01/22 11/16/22 Unknown History release magnesium hydroxide 400 mg/5 mL 30 ml PO DAILY PRN Constipation 06/01/22 11/16/22 Unknown History oral suspension (Milk of Magnesia) sennosides 8.6 mg-docusate sodium 1 tab PO BID PRN Constipation 06/01/22 11/16/22 Unknown History 50 mg tablet (Senna Plus) midodrine 5 mg tablet 5 mg PO TID@0800,1200,1800 11/16/22 11/16/22 Unknown History peg [id number] 1 1 drp ophthalmic (eye) BID 11/16/22 11/16/22 Unknown History %-0.2 %-0.2 % eye drops (Artificial Tears ([id number])) Physical Exam Vital Signs: Vital Signs: Last Vital Signs Temp 98.6 F 11/17/22 19:21 Pulse 86 11/17/22 19:54 Resp 18 11/17/22 19:54 BP 120/50 L 11/17/22 16:00 Pulse Ox 98 11/17/22 19:21 O2 Del Method Room Air 11/17/22 19:21 O2 Flow Rate 2 11/17/22 16:00 Oxygen Flow Rate 4 11/16/22 13:10 BMI result Body Mass Index 28.5 Const: General: cooperative HEENT: Head: Yes normal to inspection Face and sinus: Yes normal facial exam Mouth: Normal oral and palatal mucosa present Teeth and gingiva: dentition normal Eyes: General: appearance normal, both eyes and all related structures Pupils: Equal, round and reactive pupils present Resp: Effort & Inspection: normal respiratory effort Cardio: Rate: regular rate Rhythm: regular rhythm GI: Palpation (GI): Soft to palpation and nontender : General: Yes no CVA tenderness Back/Spine/Pelvis: Back: no CVA tenderness Skin: General skin exam: no rashes or lesions noted Neuro: General: moves all extremities Cranial nerves: Yes Equal, round and reactive pupils present Extrem: General: Yes normal to inspection Psych: Other: demented Results Labs 11/17/22 06:03 11/17/22 06:03 Labs: Short CBC 11/17/22 Range/Units 06:03 WBC 3.9 L (4.8-10.8) X10*3/uL Hgb 11.5 L (14.0-18.0) g/dl Hct 36.6 L (42.0-52.0) % Plt Count 189 (160-400) X10*3/uL BMP 11/17/22 06:03 Sodium 140 Potassium 4.0 Chloride 99 Carbon Dioxide 33 H BUN 18 H Creatinine 0.74 Calcium 9.3 Microbiology Microbiology Results: Microbiology 11/16/22 16:31 Blood - Venous Blood Culture - Preliminary No growth after 24 hours. 11/16/22 15:56 Blood - Venous Blood Culture - Preliminary No growth after 24 hours. 11/16/22 Unknown Urine Catheterized - [place] Catheter Urine Culture - Preliminary Culture too young to evaluate. Assessment and Plan (1) UTI (urinary tract infection): Status: Acute There is urine concern over Pseudomonas. COVID within last day (2) COVID-19: Status: Acute Plan Continue Dexamethasone until hypoxia resolves. Await urine culture and adjust antibiotics,continue Pseudomonas coverage for now. Time Spent With Patient Time: Total time managing care of this patient today ____ minutes.
--- NOTE | 2022-11-17 23:40 | W.PM.IDCN ---
History of Present Illness Data of Consult Service Date: 11/17/22 Requesting physician: Tasneem Jones Primary Care Provider: MARCELA SALGADO Reason for consult: COVID He presents to hospital with shortness of breath and increased work of breathing. Review of Systems Review of Systems: Yes all other systems are reviewed and are negative [facility] Past Medical History Medical History BPH (benign prostatic hyperplasia) Compression fx, lumbar spine Compression fx, thoracic spine Constipation Dementia Dementia Depression GERD (gastroesophageal reflux disease) High cholesterol Myasthenia gravis Urinary retention Family History Family history: reviewed and not pertinent Surgical History Surgical History H/O thymectomy Social History Social History Household Members: None Housing: Assisted Living Facility Housing Other:: [facility] Alcohol intake: never Patient Tobacco Use Status: Tobacco use Unknown Use of substances other than those prescribed or required for medical reasons: No Currently Displaying Signs/Symptoms of Drug Intoxication Withdrawal: No Have you been hit, kicked, punched, or otherwise hurt by someone within the past year? If so, by whom?: No Is there a partner from a previous relationship who is making you feel unsafe now?: No Are you made to feel afraid or neglected: No Advance Directives: Yes Advance Directives on File: Yes Advance Directives Date on File: 07/17/21 Do you have thoughts of harming others: None Do you have a plan to hurt others: No Plan Nutrition Risks: No Nutritional Risk service: No Current occupational status: retired and disabled Meds Allergies Allergy/AdvReac Type Severity Reaction Status Date / Time bacitracin Allergy Unknown Verified 07/16/21 12:22 [From Neosporin ([id number])] iodine Allergy Unknown Verified 07/16/21 12:22 neomycin Allergy Unknown Verified 07/16/21 12:22 [From Neosporin ([id number])] polymyxin B Allergy Unknown Verified 07/16/21 12:22 [From Neosporin ([id number])] Active Medications: Current Medications Acetaminophen (Acetaminophen 325 Mg Tablet) 650 mg PO Q6H PRN PRN Reason: Pain, Mild (Pain Scale 1-3) Albuterol Sulfate (Albuterol Sulfate (0.083%) 2.5 Mg/3 Ml Vial.Neb) 2.5 mg INHALE Q6H PRN PRN Reason: Wheezing Albuterol Sulfate (Albuterol Sulfate 90 Mcg 8 Gm Inhaler) 2 puff INHALE Q4H PRN PRN Reason: Shortness Of Breath Albuterol/Ipratropium (Albuterol/Iprat 2.5/0.5mg 3 Ml Ampul.Neb) 3 ml INHALE RQ4H WHILE AWAKE [facility] Last Admin: 11/17/22 19:54 Dose: 3 ml Artificial Tears (Artificial Tears 15 Ml Drops) 1 drop EYE-BOTH BID [facility] Last Admin: 11/17/22 20:53 Dose: Not Given Aspirin (Aspirin Enteric Coated 81 Mg Tablet.) 81 mg PO DAILY [facility] Last Admin: 11/17/22 09:59 Dose: 81 mg Atorvastatin Calcium (Atorvastatin Calcium 10 Mg Tablet) 10 mg PO BEDTIME [facility] Last Admin: 11/17/22 20:25 Dose: 10 mg Bisacodyl (Bisacodyl 10 Mg Supp.Rect) 10 mg [place] DAILY PRN PRN Reason: Constipation Cyanocobalamin (Cyanocobalamin (Vitamin B-12) 1,000 Mcg Tablet) 1,000 mcg PO DAILY [facility] Last Admin: 11/17/22 10:00 Dose: 1,000 mcg Dexamethasone Sodium Phosphate (Dexamethasone Sod Phosphate 4 Mg/Ml Vial) 6 mg IVPUSH Q24H [facility] Last Admin: 11/17/22 16:18 Dose: 6 mg Enoxaparin Sodium (Enoxaparin Sodium 40 Mg/0.4 Ml Syringe) 40 mg SUBCUT Q24H [facility] Last Admin: 11/17/22 20:25 Dose: 40 mg Gabapentin (Gabapentin 300 Mg Capsule) 300 mg PO BID [facility] Last Admin: 11/17/22 20:25 Dose: 300 mg Cefepime HCl 1 gm/ Sodium (Chloride) 50 mls @ 100 mls/hr IV Q12H [facility] Last Infusion: 11/17/22 21:16 Dose: Infused Magnesium Hydroxide (Milk Of Magnesia 30 Ml Oral.Susp) 30 ml PO DAILY PRN PRN Reason: Constipation Melatonin (Melatonin 3 Mg Tablet) 3 mg PO BEDTIME [facility] Last Admin: 11/17/22 20:25 Dose: 3 mg Midodrine (Midodrine Hcl 5 Mg Tablet) 5 mg PO TID@0800,1200,1800 [facility] Last Admin: 11/17/22 18:44 Dose: 5 mg Multivitamins/Vitamin C (Multivitamin Tablet) 1 tab PO DAILY [facility] Last Admin: 11/17/22 09:59 Dose: 1 tab Omeprazole (Omeprazole 20 Mg Capsule.Dr) 20 mg PO DAILY@0630 [facility] Last Admin: 11/17/22 05:51 Dose: 20 mg Ondansetron HCl (Ondansetron Hcl 4 Mg/2 Ml Vial) 4 mg IVPUSH Q8H PRN PRN Reason: Nausea and Vomiting Risperidone (Risperidone 0.5 Mg Tablet) 0.5 mg PO BID [facility] Last Admin: 11/17/22 20:24 Dose: 0.5 mg Senna/Docusate Sodium (Sennosides/Docusate Sodium Tablet) 1 tab PO BID PRN PRN Reason: Constipation Sertraline HCl (Sertraline Hcl 50 Mg Tablet) 50 mg PO DAILY [facility] Last Admin: 11/17/22 09:59 Dose: 50 mg Sertraline HCl (Sertraline Hcl 100 Mg Tablet) 100 mg PO DAILY [facility] Last Admin: 11/17/22 09:59 Dose: 100 mg Sodium Biphosphate/Sodium Phosphate (Sodium Phosphate,[place]-Dibasic 133 Ml Enema) 118 ml [place] BEDTIME PRN PRN Reason: Constipation Sodium Chloride (0.9 % Sodium Chloride Flush 3 Ml Syringe) 3 ml IVFLUSH QSHIFT [facility] Last Admin: 11/17/22 18:44 Dose: 3 ml Home Medications Medication Instructions Recorded Confirmed Last Taken Type albuterol sulfate 90 mcg/actuation 2 puff inhalation Q4H PRN 07/16/21 11/16/22 Unknown History aerosol inhaler Shortness Of Breath atorvastatin 10 mg tablet 1 tab PO BEDTIME 07/16/21 11/16/22 Unknown History cyanocobalamin (vitamin B-12) 1,000 mcg PO DAILY 07/16/21 11/16/22 Unknown History 1,000 mcg capsule gabapentin 300 mg capsule 1 cap PO BID 07/16/21 11/16/22 Unknown History melatonin 3 mg tablet 3 mg PO BEDTIME 07/16/21 11/16/22 Unknown History multivitamin 1 tab PO DAILY 07/16/21 11/16/22 Unknown History omeprazole 20 mg capsule,delayed 1 cap PO DAILY@0630 07/16/21 11/16/22 Unknown History release prednisone 5 mg tablet 1 tab PO DAILY 07/16/21 11/16/22 Unknown History risperidone 0.5 mg tablet 0.5 mg PO BID 07/16/21 11/16/22 Unknown History (Risperdal) sertraline 100 mg tablet 1 tab PO DAILY 07/16/21 11/16/22 Unknown History sertraline 50 mg tablet 1 tab PO DAILY 07/16/21 11/16/22 Unknown History bisacodyl 10 mg rectal suppository 10 mg [place] DAILY PRN Constipation 02/09/22 11/16/22 Unknown History sodium phosphates 19 gram-7 118 ml [place] BEDTIME PRN Constipation 02/09/22 11/16/22 Unknown History gram/118 mL enema (Fleet Enema) acetaminophen 325 mg tablet 650 mg PO Q4H PRN Fever Or Pain 06/01/22 11/16/22 Unknown History albuterol sulfate 2.5 mg/3 mL 2.5 mg inhalation Q6H PRN Wheezing 06/01/22 11/16/22 Unknown History (0.083 %) solution for nebulization aspirin 81 mg tablet,delayed 81 mg PO DAILY 06/01/22 11/16/22 Unknown History release magnesium hydroxide 400 mg/5 mL 30 ml PO DAILY PRN Constipation 06/01/22 11/16/22 Unknown History oral suspension (Milk of Magnesia) sennosides 8.6 mg-docusate sodium 1 tab PO BID PRN Constipation 06/01/22 11/16/22 Unknown History 50 mg tablet (Senna Plus) midodrine 5 mg tablet 5 mg PO TID@0800,1200,1800 11/16/22 11/16/22 Unknown History peg [id number] 1 1 drp ophthalmic (eye) BID 11/16/22 11/16/22 Unknown History %-0.2 %-0.2 % eye drops (Artificial Tears ([id number])) Physical Exam Vital Signs: Vital Signs: Last Vital Signs Temp 98.6 F 11/17/22 19:21 Pulse 86 11/17/22 19:54 Resp 18 11/17/22 19:54 BP 120/50 L 11/17/22 16:00 Pulse Ox 98 11/17/22 19:21 O2 Del Method Room Air 11/17/22 19:21 O2 Flow Rate 2 11/17/22 16:00 Oxygen Flow Rate 4 11/16/22 13:10 BMI result Body Mass Index 28.5 Const: General: cooperative HEENT: Head: Yes normal to inspection Face and sinus: Yes normal facial exam Mouth: Normal oral and palatal mucosa present Teeth and gingiva: dentition normal Eyes: General: appearance normal, both eyes and all related structures Pupils: Equal, round and reactive pupils present Resp: Effort & Inspection: normal respiratory effort Cardio: Rate: regular rate Rhythm: regular rhythm GI: Palpation (GI): Soft to palpation and nontender : General: Yes no CVA tenderness Back/Spine/Pelvis: Back: no CVA tenderness Skin: General skin exam: no rashes or lesions noted Neuro: General: moves all extremities Cranial nerves: Yes Equal, round and reactive pupils present Extrem: General: Yes normal to inspection Psych: Appearance: grossly normal Results Labs 11/17/22 06:03 11/17/22 06:03 Labs: Short CBC 11/17/22 Range/Units 06:03 WBC 3.9 L (4.8-10.8) X10*3/uL Hgb 11.5 L (14.0-18.0) g/dl Hct 36.6 L (42.0-52.0) % Plt Count 189 (160-400) X10*3/uL BMP 11/17/22 06:03 Sodium 140 Potassium 4.0 Chloride 99 Carbon Dioxide 33 H BUN 18 H Creatinine 0.74 Calcium 9.3 Microbiology Microbiology Results: Microbiology 11/16/22 16:31 Blood - Venous Blood Culture - Preliminary No growth after 24 hours. 11/16/22 15:56 Blood - Venous Blood Culture - Preliminary No growth after 24 hours. 11/16/22 Unknown Urine Catheterized - Arroyo Catheter Urine Culture - Preliminary Culture too young to evaluate. Assessment and Plan (1) UTI (urinary tract infection): Status: Acute (2) COVID-19: Status: Acute Dexamethasone for COVID fo a week likely. Await urine culture and adjust antibiotic accordingl. (3) Hypoxic: Status: Acute Time Spent With Patient Time: Total time managing care of this patient today ____ minutes.
[2022-11-18] VITALS (9 sets, daily range): BP systolic 100–135; BP diastolic 64–84; PULSE 62–90; RESP 16–20; TEMP 36–37.2; O2SAT 94–96
[2022-11-18] MEDS: 0.9 % Sodium Chloride Flush 3 ML SYRINGE IVFLUSH ×2 (00:49→15:50)
[2022-11-18] MEDS: Omeprazole 20 MG CAPSULE.DR PO (05:44)
[2022-11-18 06:38] LABS: Anion Gap 12 (12-20); Blood Urea Nitrogen 21 mg/dL (9-16); Calcium 8.9 mg/dL (8.4-10.2); Carbon Dioxide 31 mmol/L (22-29); Chloride 102 mmol/L (96-108); Creatinine Clr Calc Pharmacy 126.2; Estimated Glomerular Filt Rate > 60; Glucose Random 116 mg/dL (60-115); Lactate Dehydrogenase 148 U/L (118-273); Potassium 4.2 mmol/L (3.3-5.1); Sodium 141 mmol/L (135-145)
[2022-11-18 07:13] LABS: Hematocrit 33.2 % (42.0-52.0); Hemoglobin 10.6 g/dl (14.0-18.0); Mean Corpuscular HGB Conc 31.9 g/dl (31.0-36.0); Mean Corpuscular Hemoglobin 30.4 pg (27.0-33.0); Mean Corpuscular Volume 95.1 fL (80.0-98.0); Mean Platelet Volume 11.1 fL (9.4-12.4); Platelet Count 190 X10*3/uL (160-400); Red Blood Count 3.49 X10*6/uL (4.60-5.80); Red Cell Distribution Width 13.5 % (11.0-16.0); White Blood Count 3.3 X10*3/uL (4.8-10.8)
[2022-11-18] MEDS: Gabapentin 300 MG CAPSULE PO ×2 (10:17→20:47)
[2022-11-18] MEDS: Sertraline HCL 50 MG TABLET PO (10:17)
[2022-11-18] MEDS: risperiDONE 0.5 MG TABLET PO ×2 (10:17→20:47)
[2022-11-18] MEDS: Sertraline HCL 100 MG TABLET PO (10:17)
[2022-11-18] MEDS: Cyanocobalamin (Vitamin B-12) 1,000 MCG TABLET 1000 MCG PO (10:17)
[2022-11-18] MEDS: Aspirin Enteric Coated 81 MG TABLET.DR PO (10:17)
[2022-11-18] MEDS: Multivitamin TABLET 1 TAB PO (10:17)
[2022-11-18] MEDS: Midodrine HCl 5 MG TABLET PO ×3 (10:23→18:10)
[2022-11-18] MEDS: Artificial Tears 15 ML DROPS 1 DROP EYE-BOTH (10:23)
--- NOTE | 2022-11-18 12:10 | HO.PM.IMPN ---
Subjective Subjective Date of Service: 11/18/22 Interval History: Seen and evaluated this morning Feels more comfortable requiring more than baseline O2 having resting tremors No fever , chills or chest pain Review of Systems Review of Systems: Yes all other systems are reviewed and are negative Physical Exam Vital Signs: Vital Signs: Last Vital Signs Temp 97.8 F 11/18/22 07:26 Pulse 76 11/18/22 07:26 Resp 16 11/18/22 07:26 BP 107/68 11/18/22 07:26 Pulse Ox 95 11/18/22 07:26 O2 Del Method Nasal Cannula 11/18/22 07:26 O2 Flow Rate 4 11/18/22 07:26 Oxygen Flow Rate 4 11/16/22 13:10 BMI result Body Mass Index 28.5 Const: Other: Constitutional : Awake, interactive, not in distress Neck : Normal inspection, Supple Cardiovascular : RRR, no JVP, no lower extremity edema Respiratory : decreased bilateral air entry mainly at the bases, bilateral expiratory rhonchi Gastrointestinal: soft, lax, Normal bowel sounds, Non tender Skin : Warm, Dry Neurological : Alert & oriented to self, No focal deficit Objective Data Active Medications Acetaminophen (Acetaminophen 325 Mg Tablet) 650 mg PO Q6H PRN PRN Reason: Pain, Mild (Pain Scale 1-3) Albuterol Sulfate (Albuterol Sulfate (0.083%) 2.5 Mg/3 Ml Vial.Neb) 2.5 mg INHALE Q6H PRN PRN Reason: Wheezing Albuterol Sulfate (Albuterol Sulfate 90 Mcg 8 Gm Inhaler) 2 puff INHALE Q4H PRN PRN Reason: Shortness Of Breath Albuterol/Ipratropium (Albuterol/Iprat 2.5/0.5mg 3 Ml Ampul.Neb) 3 ml INHALE RQ4H WHILE AWAKE [facility] Last Admin: 11/18/22 08:28 Dose: Not Given Documented By: NICK Non-Admin Reason: Patient Asleep Artificial Tears (Artificial Tears 15 Ml Drops) 1 drop EYE-BOTH BID [facility] Last Admin: 11/18/22 10:23 Dose: 1 drop Documented By: EVER Aspirin (Aspirin Enteric Coated 81 Mg Tablet.) 81 mg PO DAILY [facility] Last Admin: 11/18/22 10:17 Dose: 81 mg Documented By: EVER Atorvastatin Calcium (Atorvastatin Calcium 10 Mg Tablet) 10 mg PO BEDTIME [facility] Last Admin: 11/17/22 20:25 Dose: 10 mg Documented By: HOWIE Bisacodyl (Bisacodyl 10 Mg Supp.Rect) 10 mg [place] DAILY PRN PRN Reason: Constipation Cyanocobalamin (Cyanocobalamin (Vitamin B-12) 1,000 Mcg Tablet) 1,000 mcg PO DAILY [facility] Last Admin: 11/18/22 10:17 Dose: 1,000 mcg Documented By: EVER Dexamethasone Sodium Phosphate (Dexamethasone Sod Phosphate 4 Mg/Ml Vial) 6 mg IVPUSH Q24H [facility] Last Admin: 11/17/22 16:18 Dose: 6 mg Documented By: HOWIE Enoxaparin Sodium (Enoxaparin Sodium 40 Mg/0.4 Ml Syringe) 40 mg SUBCUT Q24H [facility] Last Admin: 11/17/22 20:25 Dose: 40 mg Documented By: HOWIE Gabapentin (Gabapentin 300 Mg Capsule) 300 mg PO BID [facility] Last Admin: 11/18/22 10:17 Dose: 300 mg Documented By: EVER Meropenem 1 gm/ Sodium (Chloride) 100 mls @ 200 mls/hr IV Q8H [facility] Last Infusion: 11/18/22 12:00 Dose: 0 mls/hr Documented By: EVER Magnesium Hydroxide (Milk Of Magnesia 30 Ml Oral.Susp) 30 ml PO DAILY PRN PRN Reason: Constipation Melatonin (Melatonin 3 Mg Tablet) 3 mg PO BEDTIME [facility] Last Admin: 11/17/22 20:25 Dose: 3 mg Documented By: HOWIE Midodrine (Midodrine Hcl 5 Mg Tablet) 5 mg PO TID@0800,1200,1800 [facility] Last Admin: 11/18/22 10:23 Dose: 5 mg Documented By: EVER Multivitamins/Vitamin C (Multivitamin Tablet) 1 tab PO DAILY [facility] Last Admin: 11/18/22 10:17 Dose: 1 tab Documented By: EVER Omeprazole (Omeprazole 20 Mg Capsule.) 20 mg PO DAILY@0630 [facility] Last Admin: 11/18/22 05:44 Dose: 20 mg Documented By: CHERYL Ondansetron HCl (Ondansetron Hcl 4 Mg/2 Ml Vial) 4 mg IVPUSH Q8H PRN PRN Reason: Nausea and Vomiting Risperidone (Risperidone 0.5 Mg Tablet) 0.5 mg PO BID [facility] Last Admin: 11/18/22 10:17 Dose: 0.5 mg Documented By: EVER Senna/Docusate Sodium (Sennosides/Docusate Sodium Tablet) 1 tab PO BID PRN PRN Reason: Constipation Sertraline HCl (Sertraline Hcl 50 Mg Tablet) 50 mg PO DAILY [facility] Last Admin: 11/18/22 10:17 Dose: 50 mg Documented By: EVER Sertraline HCl (Sertraline Hcl 100 Mg Tablet) 100 mg PO DAILY [facility] Last Admin: 11/18/22 10:17 Dose: 100 mg Documented By: EVER Sodium Biphosphate/Sodium Phosphate (Sodium Phosphate,[place]-Dibasic 133 Ml Enema) 118 ml [place] BEDTIME PRN PRN Reason: Constipation Sodium Chloride (0.9 % Sodium Chloride Flush 3 Ml Syringe) 3 ml IVFLUSH QSHIFT [facility] Last Admin: 11/18/22 10:23 Dose: Not Given Documented By: EVER Non-Admin Reason: IV Running Labs 11/18/22 05:58 11/18/22 05:58 Labs: Laboratory Results - last 24 hr 11/18/22 11/18/22 11/18/22 05:58 05:58 05:58 MCV 95.1 MCH 30.4 MCHC 31.9 RDW 13.5 Plt Count 190 MPV 11.1 Absolute Nucleated RBC 0.000 Nucleated RBC % (auto) 0.0 Anion Gap 12 Estim Creat Clear Calc 126.2 Estimated GFR > 60 Random Glucose 116 H Calcium 8.9 Lactate Dehydrogenase 148 C-Reactive Protein 3.30 H Microbiology Microbiology Results: Microbiology 11/16/22 Unknown Urine Culture - Preliminary Urine Catheterized - [place] Catheter Culture in progress. 11/16/22 16:31 Blood Culture - Preliminary Blood - Venous No growth after 24 hours. 11/16/22 15:56 Blood Culture - Preliminary Blood - Venous No growth after 24 hours. Assessment and Plan (1) UTI (urinary tract infection): Status: Acute (2) COVID-19: Status: Acute (3) Hypoxic: Status: Acute Plan Pt is a 71-year-old male with a PMH significant for?dementia, myasthenia gravis, COPD, CAD, and HLD who presents to the ED from SNF with hypoxia and increasing supplemental O2 demand after testing positive for COVID. Patient is a resident [facility] and chronically on 2-3 L O2 at baseline to maintain 94-96% O2. Pt will be admitted to the hospital for treatment of acute hypoxic respiratory failure in the setting of COVID infection. Acute hypoxic respiratory failure in the setting of COVID infection improving Dexamethasone 6 mg IV daily DuoNebs pending ID consult Titrate O2 >92, wean as tolerated UTI 2/2 chronic indwelling Arroyo hx of Pseudomonas UTI Continue with Meropenem pending final cultures Myasthenia gravis on dexamethasone Hold home prednisone Presumed orthostatic hypotension Continue midodrine Mood disorder Continue home meds HLD Continue statin DNR/DNI DVT Prophylaxis: Lovenox Pt will require a hospitalization overnight for treatment of?acute hypoxic respiratory failure in the setting of COVID requiring IV systemic steroids and additional O2 supplementation. Time Spent With Patient Time: Total time managing care of this patient today ____ minutes. Quality Stroke Does the patient have a stroke diagnosis?: No VTE Prior VTE?: No VTE Risk Level:: Medical - moderate - high VTE Device Contraindication: Treatment Not Indicated VTE Drug Contraindication: N/A - Med Ordered
[2022-11-18] MEDS: Albuterol/Iprat 2.5/0.5MG 3 ML AMPUL.NEB INHALE ×3 (12:17→19:01)
[2022-11-18] MEDS: dexAMETHasone sod phosphate 4 MG/ML VIAL 6 MG IVPUSH (16:52)
[2022-11-18] MEDS: Enoxaparin Sodium 40 MG/0.4 ML SYRINGE SUBCUT (19:38)
[2022-11-18] MEDS: Atorvastatin Calcium 10 MG TABLET PO (20:47)
[2022-11-18] MEDS: Melatonin 3 MG TABLET PO (20:47)
[2022-11-19] MEDS: 0.9 % Sodium Chloride Flush 3 ML SYRINGE IVFLUSH ×4 (00:29→20:51)
[2022-11-19 04:00] VITALS: BP 117/65; PULSE 75; RESP 15; TEMP 36.1; O2SAT 95
[2022-11-19] MEDS: Omeprazole 20 MG CAPSULE.DR PO (06:11)
[2022-11-19 07:10] LABS: Hematocrit 33.4 % (42.0-52.0); Hemoglobin 10.5 g/dl (14.0-18.0); Mean Corpuscular HGB Conc 31.4 g/dl (31.0-36.0); Mean Corpuscular Hemoglobin 30.3 pg (27.0-33.0); Mean Corpuscular Volume 96.3 fL (80.0-98.0); Mean Platelet Volume 11.3 fL (9.4-12.4); Platelet Count 203 X10*3/uL (160-400); Red Blood Count 3.47 X10*6/uL (4.60-5.80); Red Cell Distribution Width 13.7 % (11.0-16.0); White Blood Count 3.1 X10*3/uL (4.8-10.8)
[2022-11-19 07:30] LABS: Anion Gap 11 (12-20); Blood Urea Nitrogen 21 mg/dL (9-16); Calcium 8.8 mg/dL (8.4-10.2); Carbon Dioxide 33 mmol/L (22-29); Chloride 102 mmol/L (96-108); Creatinine Clr Calc Pharmacy 124.3; Estimated Glomerular Filt Rate > 60; Glucose Random 114 mg/dL (60-115); Potassium 4.3 mmol/L (3.3-5.1); Sodium 142 mmol/L (135-145)
[2022-11-19 07:36] VITALS: BP 118/67; PULSE 86; RESP 18; TEMP 36.3; O2SAT 92
[2022-11-19] MEDS: risperiDONE 0.5 MG TABLET PO ×2 (09:07→20:51)
[2022-11-19] MEDS: Sertraline HCL 50 MG TABLET PO (09:07)
[2022-11-19] MEDS: Aspirin Enteric Coated 81 MG TABLET.DR PO (09:07)
[2022-11-19] MEDS: Midodrine HCl 5 MG TABLET PO ×3 (09:07→17:00)
[2022-11-19] MEDS: Cyanocobalamin (Vitamin B-12) 1,000 MCG TABLET 1000 MCG PO (09:08)
[2022-11-19] MEDS: Gabapentin 300 MG CAPSULE PO ×2 (09:08→20:51)
[2022-11-19] MEDS: Sertraline HCL 100 MG TABLET PO (09:08)
[2022-11-19] MEDS: Multivitamin TABLET 1 TAB PO (09:08)
[2022-11-19] MEDS: Albuterol/Iprat 2.5/0.5MG 3 ML AMPUL.NEB INHALE (11:34)
[2022-11-19 11:37] VITALS: PULSE 93; RESP 20; O2SAT 93
--- NOTE | 2022-11-19 13:13 | HO.PM.IMPN ---
Subjective Subjective Date of Service: 11/19/22 Interval History: Seen and evaluated this morning Feels more comfortable close to baseline O2 Pending urine culture No fever , chills or chest pain Review of Systems Review of Systems: Yes all other systems are reviewed and are negative Physical Exam Vital Signs: Vital Signs: Last Vital Signs Temp 97.3 F 11/19/22 07:36 Pulse 93 11/19/22 11:37 Resp 20 11/19/22 11:37 BP 118/67 11/19/22 07:36 Pulse Ox 92 11/19/22 07:36 O2 Del Method Nasal Cannula 11/19/22 07:36 O2 Flow Rate 2 11/19/22 07:36 Oxygen Flow Rate 4 11/16/22 13:10 BMI result Body Mass Index 28.5 Const: Other: Constitutional : Awake, interactive, not in distress Neck : Normal inspection, Supple Cardiovascular : RRR, no JVP, no lower extremity edema Respiratory : decreased bilateral air entry mainly at the bases, bilateral expiratory rhonchi Gastrointestinal: soft, lax, Normal bowel sounds, Non tender Skin : Warm, Dry Neurological : Alert & oriented to self, No focal deficit Objective Data Active Medications Acetaminophen (Acetaminophen 325 Mg Tablet) 650 mg PO Q6H PRN PRN Reason: Pain, Mild (Pain Scale 1-3) Albuterol Sulfate (Albuterol Sulfate (0.083%) 2.5 Mg/3 Ml Vial.Neb) 2.5 mg INHALE Q6H PRN PRN Reason: Wheezing Albuterol Sulfate (Albuterol Sulfate 90 Mcg 8 Gm Inhaler) 2 puff INHALE Q4H PRN PRN Reason: Shortness Of Breath Albuterol/Ipratropium (Albuterol/Iprat 2.5/0.5mg 3 Ml Ampul.Neb) 3 ml INHALE RQ4H WHILE AWAKE [facility] Last Admin: 11/19/22 11:34 Dose: 3 ml Documented By: NESTOR Artificial Tears (Artificial Tears 15 Ml Drops) 1 drop EYE-BOTH BID [facility] Last Admin: 11/19/22 09:56 Dose: Not Given Documented By: RIVERA Non-Admin Reason: med not available-called pharmacist Aspirin (Aspirin Enteric Coated 81 Mg Tablet.) 81 mg PO DAILY [facility] Last Admin: 11/19/22 09:07 Dose: 81 mg Documented By: RIVERA Atorvastatin Calcium (Atorvastatin Calcium 10 Mg Tablet) 10 mg PO BEDTIME [facility] Last Admin: 11/18/22 20:47 Dose: 10 mg Documented By: HOWIE Bisacodyl (Bisacodyl 10 Mg Supp.Rect) 10 mg [place] DAILY PRN PRN Reason: Constipation Cyanocobalamin (Cyanocobalamin (Vitamin B-12) 1,000 Mcg Tablet) 1,000 mcg PO DAILY [facility] Last Admin: 11/19/22 09:08 Dose: 1,000 mcg Documented By: RIVERA Dexamethasone Sodium Phosphate (Dexamethasone Sod Phosphate 4 Mg/Ml Vial) 6 mg IVPUSH Q24H [facility] Last Admin: 11/18/22 16:52 Dose: 6 mg Documented By: HOWIE Enoxaparin Sodium (Enoxaparin Sodium 40 Mg/0.4 Ml Syringe) 40 mg SUBCUT Q24H [facility] Last Admin: 11/18/22 19:38 Dose: 40 mg Documented By: HOWIE Gabapentin (Gabapentin 300 Mg Capsule) 300 mg PO BID [facility] Last Admin: 11/19/22 09:08 Dose: 300 mg Documented By: RIVERA Meropenem 1 gm/ Sodium (Chloride) 100 mls @ 200 mls/hr IV Q8H [facility] Last Infusion: 11/19/22 09:42 Dose: 0 mls/hr Documented By: RIVERA Magnesium Hydroxide (Milk Of Magnesia 30 Ml Oral.Susp) 30 ml PO DAILY PRN PRN Reason: Constipation Melatonin (Melatonin 3 Mg Tablet) 3 mg PO BEDTIME [facility] Last Admin: 11/18/22 20:47 Dose: 3 mg Documented By: HOWIE Midodrine (Midodrine Hcl 5 Mg Tablet) 5 mg PO TID@0800,1200,1800 [facility] Last Admin: 11/19/22 12:00 Dose: 5 mg Documented By: RIVERA Multivitamins/Vitamin C (Multivitamin Tablet) 1 tab PO DAILY [facility] Last Admin: 11/19/22 09:08 Dose: 1 tab Documented By: RIVERA Omeprazole (Omeprazole 20 Mg Capsule.) 20 mg PO DAILY@0630 [facility] Last Admin: 11/19/22 06:11 Dose: 20 mg Documented By: NEYMAR Ondansetron HCl (Ondansetron Hcl 4 Mg/2 Ml Vial) 4 mg IVPUSH Q8H PRN PRN Reason: Nausea and Vomiting Risperidone (Risperidone 0.5 Mg Tablet) 0.5 mg PO BID [facility] Last Admin: 11/19/22 09:07 Dose: 0.5 mg Documented By: RIVERA Senna/Docusate Sodium (Sennosides/Docusate Sodium Tablet) 1 tab PO BID PRN PRN Reason: Constipation Sertraline HCl (Sertraline Hcl 50 Mg Tablet) 50 mg PO DAILY [facility] Last Admin: 11/19/22 09:07 Dose: 50 mg Documented By: RIVERA Sertraline HCl (Sertraline Hcl 100 Mg Tablet) 100 mg PO DAILY [facility] Last Admin: 11/19/22 09:08 Dose: 100 mg Documented By: RIVERA Sodium Biphosphate/Sodium Phosphate (Sodium Phosphate,[place]-Dibasic 133 Ml Enema) 118 ml [place] BEDTIME PRN PRN Reason: Constipation Sodium Chloride (0.9 % Sodium Chloride Flush 3 Ml Syringe) 3 ml IVFLUSH QSHIFT [facility] Last Admin: 11/19/22 09:09 Dose: 3 ml Documented By: RIVERA Labs 11/19/22 05:58 11/19/22 05:58 Labs: Laboratory Results - last 24 hr 11/19/22 11/19/22 05:58 05:58 MCV 96.3 MCH 30.3 MCHC 31.4 RDW 13.7 Plt Count 203 MPV 11.3 Absolute Nucleated RBC 0.000 Nucleated RBC % (auto) 0.0 Anion Gap 11 L Estim Creat Clear Calc 124.3 Estimated GFR > 60 Random Glucose 114 Calcium 8.8 Microbiology Microbiology Results: Microbiology 11/16/22 Unknown Urine Culture - Preliminary Urine Catheterized - [place] Catheter Pseudomonas species Staphylococcus species 11/16/22 16:31 Blood Culture - Preliminary Blood - Venous No growth after 48 hours. 11/16/22 15:56 Blood Culture - Preliminary Blood - Venous No growth after 48 hours. Assessment and Plan (1) UTI (urinary tract infection): Status: Acute (2) COVID-19: Status: Acute (3) Hypoxic: Status: Acute Plan Pt is a 71-year-old male with a PMH significant for?dementia, myasthenia gravis, COPD, CAD, and HLD who presents to the ED from SNF with hypoxia and increasing supplemental O2 demand after testing positive for COVID. Patient is a resident Day [facility] and chronically on 2-3 L O2 at baseline to maintain 94-96% O2. Pt will be admitted to the hospital for treatment of acute hypoxic respiratory failure in the setting of COVID infection. Acute hypoxic respiratory failure in the setting of COVID infection improving Dexamethasone 6 mg IV daily DuoNebs Titrate O2 >92, wean as tolerated UTI 2/2 chronic indwelling [place] hx of Pseudomonas UTI Continue with Meropenem pending final cultures , growing pseudomonas per micro lab to place [facility] ID following Myasthenia gravis on dexamethasone Hold home prednisone Presumed orthostatic hypotension Continue midodrine Mood disorder Continue home meds HLD Continue statin DNR/DNI DVT Prophylaxis: Lovenox Pt will require a hospitalization overnight for treatment of?acute hypoxic respiratory failure in the setting of COVID requiring IV systemic steroids and additional O2 supplementation. Time Spent With Patient Time: Total time managing care of this patient today ____ minutes. Quality Stroke Does the patient have a stroke diagnosis?: No VTE Prior VTE?: No VTE Risk Level:: Medical - moderate - high VTE Device Contraindication: Treatment Not Indicated VTE Drug Contraindication: N/A - Med Ordered
[2022-11-19 15:11] VITALS: BP 150/90; PULSE 74; RESP 18; TEMP 36.7; O2SAT 97
[2022-11-19] MEDS: dexAMETHasone sod phosphate 4 MG/ML VIAL 6 MG IVPUSH (17:00)
[2022-11-19 20:00] VITALS: BP 114/78; PULSE 78; RESP 20; TEMP 36.7; O2SAT 94
[2022-11-19] MEDS: Atorvastatin Calcium 10 MG TABLET PO (20:51)
[2022-11-19] MEDS: Melatonin 3 MG TABLET PO (20:51)
[2022-11-19] MEDS: Enoxaparin Sodium 40 MG/0.4 ML SYRINGE SUBCUT (20:52)
[2022-11-19] MEDS: Acetaminophen 325 MG TABLET 650 MG PO (22:11)
[2022-11-19] MEDS: Artificial Tears 15 ML DROPS 1 DROP EYE-BOTH (22:12)
[2022-11-20] VITALS: BP 124/77; PULSE 70; RESP 15; TEMP 36.3; O2SAT 92
[2022-11-20 04:00] VITALS: BP 133/77; PULSE 54; RESP 15; TEMP 36.1; O2SAT 92
[2022-11-20] MEDS: Omeprazole 20 MG CAPSULE.DR PO (06:12)
[2022-11-20 08:00] VITALS: BP 127/84; PULSE 85; RESP 18; TEMP 36.3; O2SAT 94
[2022-11-20] MEDS: Artificial Tears 15 ML DROPS 1 DROP EYE-BOTH ×2 (08:05→23:00)
[2022-11-20] MEDS: 0.9 % Sodium Chloride Flush 3 ML SYRINGE IVFLUSH ×3 (08:08→22:18)
[2022-11-20] MEDS: Multivitamin TABLET 1 TAB PO (08:09)
[2022-11-20] MEDS: Gabapentin 300 MG CAPSULE PO ×2 (08:09→22:18)
[2022-11-20] MEDS: Sertraline HCL 100 MG TABLET PO (08:09)
[2022-11-20] MEDS: Midodrine HCl 5 MG TABLET PO ×3 (08:09→16:42)
[2022-11-20] MEDS: Sertraline HCL 50 MG TABLET PO (08:10)
[2022-11-20] MEDS: Aspirin Enteric Coated 81 MG TABLET.DR PO (08:10)
[2022-11-20] MEDS: risperiDONE 0.5 MG TABLET PO ×2 (08:10→22:18)
[2022-11-20] MEDS: Cyanocobalamin (Vitamin B-12) 1,000 MCG TABLET 1000 MCG PO (08:10)
[2022-11-20] MEDS: Doxycycline Monohydrate 100 MG CAPSULE PO (13:38)
--- NOTE | 2022-11-20 14:27 | P.PNIM_ITS ---
Subjective Subjective Date of Service: 11/20/22 Interval History: Seen and evaluated this morning Feels more comfortable close to baseline O2 urine culture growing MRSA and Pseudomonas No fever , chills or chest pain Review of Systems Review of Systems: Yes all other systems are reviewed and are negative Physical Exam Vital Signs: Vital Signs: Last Vital Signs Temp 97.3 F 11/20/22 08:00 Pulse 85 11/20/22 08:00 Resp 18 11/20/22 08:00 BP 127/84 11/20/22 08:00 Pulse Ox 94 11/20/22 08:00 O2 Del Method Nasal Cannula 11/20/22 08:00 O2 Flow Rate 4 11/20/22 08:00 Oxygen Flow Rate 4 11/16/22 13:10 BMI result Body Mass Index 28.5 Const: Other: Constitutional : Awake, interactive, not in distress Neck : Normal inspection, Supple Cardiovascular : RRR, no JVP, no lower extremity edema Respiratory : decreased bilateral air entry mainly at the bases, bilateral expiratory rhonchi Gastrointestinal: soft, lax, Normal bowel sounds, Non tender Skin : Warm, Dry Neurological : Alert & oriented to self, No focal deficit Objective Data Active Medications Acetaminophen (Acetaminophen 325 Mg Tablet) 650 mg PO Q6H PRN PRN Reason: Pain, Mild (Pain Scale 1-3) Last Admin: 11/19/22 22:11 Dose: 650 mg Documented By: EDDIE Albuterol Sulfate (Albuterol Sulfate (0.083%) 2.5 Mg/3 Ml Vial.Neb) 2.5 mg INHALE Q6H PRN PRN Reason: Wheezing Albuterol Sulfate (Albuterol Sulfate 90 Mcg 8 Gm Inhaler) 2 puff INHALE Q4H PRN PRN Reason: Shortness Of Breath Albuterol/Ipratropium (Albuterol/Iprat 2.5/0.5mg 3 Ml Ampul.Neb) 3 ml INHALE RQ4H WHILE AWAKE [facility] Last Admin: 11/20/22 11:37 Dose: Not Given Documented By: NESTOR Non-Admin Reason: See Note Artificial Tears (Artificial Tears 15 Ml Drops) 1 drop EYE-BOTH BID [facility] Last Admin: 11/20/22 08:05 Dose: 1 drop Documented By: RIVERA Aspirin (Aspirin Enteric Coated 81 Mg Tablet.) 81 mg PO DAILY [facility] Last Admin: 11/20/22 08:10 Dose: 81 mg Documented By: RIVERA Atorvastatin Calcium (Atorvastatin Calcium 10 Mg Tablet) 10 mg PO BEDTIME [facility] Last Admin: 11/19/22 20:51 Dose: 10 mg Documented By: GEORGIE Bisacodyl (Bisacodyl 10 Mg Supp.Rect) 10 mg SD DAILY PRN PRN Reason: Constipation Cyanocobalamin (Cyanocobalamin (Vitamin B-12) 1,000 Mcg Tablet) 1,000 mcg PO DAILY [facility] Last Admin: 11/20/22 08:10 Dose: 1,000 mcg Documented By: RIVERA Dexamethasone Sodium Phosphate (Dexamethasone Sod Phosphate 4 Mg/Ml Vial) 6 mg IVPUSH Q24H [facility] Last Admin: 11/19/22 17:00 Dose: 6 mg Documented By: RIVERA Doxycycline Monohydrate (Doxycycline Monohydrate 100 Mg Capsule) 100 mg PO Q12H [facility] Last Admin: 11/20/22 13:38 Dose: 100 mg Documented By: RIVERA Enoxaparin Sodium (Enoxaparin Sodium 40 Mg/0.4 Ml Syringe) 40 mg SUBCUT Q24H [facility] Last Admin: 11/19/22 20:52 Dose: 40 mg Documented By: GEORGIE Gabapentin (Gabapentin 300 Mg Capsule) 300 mg PO BID [facility] Last Admin: 11/20/22 08:09 Dose: 300 mg Documented By: RIVERA Meropenem 1 gm/ Sodium (Chloride) 100 mls @ 200 mls/hr IV Q8H [facility] Last Infusion: 11/20/22 08:40 Dose: 0 mls/hr Documented By: RIVERA Magnesium Hydroxide (Milk Of Magnesia 30 Ml Oral.Susp) 30 ml PO DAILY PRN PRN Reason: Constipation Melatonin (Melatonin 3 Mg Tablet) 3 mg PO BEDTIME [facility] Last Admin: 11/19/22 20:51 Dose: 3 mg Documented By: GEORGIE Midodrine (Midodrine Hcl 5 Mg Tablet) 5 mg PO TID@0800,1200,1800 [facility] Last Admin: 11/20/22 12:22 Dose: 5 mg Documented By: RIVERA Multivitamins/Vitamin C (Multivitamin Tablet) 1 tab PO DAILY [facility] Last Admin: 11/20/22 08:09 Dose: 1 tab Documented By: RIVERA Omeprazole (Omeprazole 20 Mg Capsule.Dr) 20 mg PO DAILY@0630 [facility] Last Admin: 11/20/22 06:12 Dose: 20 mg Documented By: GEORGIE Ondansetron HCl (Ondansetron Hcl 4 Mg/2 Ml Vial) 4 mg IVPUSH Q8H PRN PRN Reason: Nausea and Vomiting Risperidone (Risperidone 0.5 Mg Tablet) 0.5 mg PO BID [facility] Last Admin: 11/20/22 08:10 Dose: 0.5 mg Documented By: RIVERA Senna/Docusate Sodium (Sennosides/Docusate Sodium Tablet) 1 tab PO BID PRN PRN Reason: Constipation Sertraline HCl (Sertraline Hcl 50 Mg Tablet) 50 mg PO DAILY [facility] Last Admin: 11/20/22 08:10 Dose: 50 mg Documented By: RIVERA Sertraline HCl (Sertraline Hcl 100 Mg Tablet) 100 mg PO DAILY [facility] Last Admin: 11/20/22 08:09 Dose: 100 mg Documented By: RIVERA Sodium Biphosphate/Sodium Phosphate (Sodium Phosphate,Simpson-Dibasic 133 Ml Enema) 118 ml SD BEDTIME PRN PRN Reason: Constipation Sodium Chloride (0.9 % Sodium Chloride Flush 3 Ml Syringe) 3 ml IVFLUSH QSHIFT [facility] Last Admin: 11/20/22 08:08 Dose: 3 ml Documented By: RIVERA Labs 11/19/22 05:58 11/19/22 05:58 Labs: Laboratory Results - last 24 hr 11/20/22 06:25 PT 12.0 INR 1.0 Microbiology Microbiology Results: Microbiology 11/16/22 Unknown Urine Culture - Final Urine Catheterized - Bean Catheter Pseudomonas aeruginosa Methicillin Res Staph Aureus Assessment and Plan (1) UTI (urinary tract infection): Status: Acute (2) COVID-19: Status: Acute (3) Hypoxic: Status: Acute Plan Pt is a 71-year-old male with a PMH significant for?dementia, myasthenia gravis, COPD, CAD, and HLD who presents to the ED from SNF with hypoxia and increasing supplemental O2 demand after testing positive for COVID. Patient is a resident [facility] and chronically on 2-3 L O2 at baseline to maintain 94-96% O2. Pt will be admitted to the hospital for treatment of acute hypoxic respiratory failure in the setting of COVID infection. Acute hypoxic respiratory failure in the setting of COVID infection improving Dexamethasone 6 mg IV daily DuoNebs Titrate O2 >92, wean as tolerated UTI 2/2 chronic indwelling Bean growing Pseudomonas and MRSA in cx Continue with Meropenem Add PO Doxycycline to place Midline Change bean catheter ID iput, 2 weeks of IV Khang and PO Doxy Myasthenia gravis on dexamethasone day 4/5, can dc upon discharge Hold home prednisone Presumed orthostatic hypotension Continue midodrine Mood disorder Continue home meds HLD Continue statin DNR/DNI DVT Prophylaxis: Lovenox Pt will require a hospitalization overnight for treatment of?MRSA and Pseudomonas UTI pending Midline placement and safe discharge plan Time Spent With Patient Time: Total time managing care of this patient today ____ minutes. Quality Stroke Does the patient have a stroke diagnosis?: No VTE Prior VTE?: No VTE Risk Level:: Medical - moderate - high VTE Device Contraindication: Treatment Not Indicated VTE Drug Contraindication: N/A - Med Ordered
[2022-11-20 15:10] VITALS: BP 112/63; PULSE 76; RESP 14; TEMP 36.7; O2SAT 96
--- NOTE | 2022-11-20 15:18 | HO.MIDLINE_ITS ---
Midline Insertion MIDLINE INSERTION Diagnosis: hypoxia respiratory failure R/T COVID Indication: culinary specialist antibiotic use Pertinent Labs: reviewed Technique: Using sterile technique including cap and mask, glove and drape, the right arm was prepped and draped in the usual sterile fashion of full barrier technique with CHG. Using ultrasound guidance,right basilic vein access was obtained on 2nd attempt by this RN. #20g x [address] midline ( non PASV) was positioned. The procedure was performed in 474. Ultrasound was used to document vein patency and for needle entry. A formal ultrasound picture was recorded. Vascular [employer]uber Machine has released the line for use and it is currently dressed with a StatLock, Tegaderm, and CHG disc. Verification has been performed for blood return and line patency. Arm Circumference: 29cm Equipment: Powerglide ST midline catheter Catheter Type: #20g x 8cm powerglide non PASV Lot #: [id number]
[2022-11-20] MEDS: dexAMETHasone sod phosphate 4 MG/ML VIAL 6 MG IVPUSH (16:39)
[2022-11-20] MEDS: Heparin Sodium,Porcine Flush 50 UNITS, 0.9 % Sodium Chloride Flush 5 ML IVFLUSH ×2 (16:40→22:19)
[2022-11-20 19:43] VITALS: BP 128/80; PULSE 66; RESP 15; TEMP 36.6; O2SAT 92
[2022-11-20] MEDS: Melatonin 3 MG TABLET PO (22:18)
[2022-11-20] MEDS: Atorvastatin Calcium 10 MG TABLET PO (22:18)
[2022-11-20] MEDS: Enoxaparin Sodium 40 MG/0.4 ML SYRINGE SUBCUT (22:21)
[2022-11-21] VITALS: BP 122/73; PULSE 76; RESP 15; TEMP 36.3; O2SAT 95
[2022-11-21] MEDS: Doxycycline Monohydrate 100 MG CAPSULE PO ×2 (03:11→12:56)
[2022-11-21 04:00] VITALS: BP 117/71; PULSE 59; RESP 17; TEMP 36.3; O2SAT 96
[2022-11-21] MEDS: Omeprazole 20 MG CAPSULE.DR PO (04:57)
[2022-11-21 07:38] VITALS: BP 122/73; PULSE 65; RESP 18; TEMP 36.4; O2SAT 94
[2022-11-21 07:53] VITALS: PULSE 68; RESP 18; O2SAT 96
[2022-11-21] MEDS: Albuterol/Iprat 2.5/0.5MG 3 ML AMPUL.NEB INHALE (07:53)
[2022-11-21] MEDS: Aspirin Enteric Coated 81 MG TABLET.DR PO (08:15)
[2022-11-21] MEDS: Multivitamin TABLET 1 TAB PO (08:15)
[2022-11-21] MEDS: Sertraline HCL 50 MG TABLET PO (08:16)
[2022-11-21] MEDS: Cyanocobalamin (Vitamin B-12) 1,000 MCG TABLET 1000 MCG PO (08:16)
[2022-11-21] MEDS: risperiDONE 0.5 MG TABLET PO (08:16)
[2022-11-21] MEDS: Midodrine HCl 5 MG TABLET PO ×2 (08:16→12:56)
[2022-11-21] MEDS: Sertraline HCL 100 MG TABLET PO (08:16)
[2022-11-21] MEDS: Gabapentin 300 MG CAPSULE PO (08:16)
[2022-11-21] MEDS: 0.9 % Sodium Chloride Flush 3 ML SYRINGE IVFLUSH (08:17)
[2022-11-21] MEDS: Heparin Sodium,Porcine Flush 50 UNITS, 0.9 % Sodium Chloride Flush 5 ML IVFLUSH (08:17)
[2022-11-21] MEDS: Artificial Tears 15 ML DROPS 1 DROP EYE-BOTH (08:36)
--- NOTE | 2022-11-21 10:54 | MHC.CM.PN ---
IMM 11/21/22 DELIVERED TO SON/HCP BAR AT 1O:38AM AT NUMBER ON FILE, BAR UPDATED AND AGREEABLE TO D/C PLAN TODAY AT 2PM, [facility] FOR BLS TRANSPORT.
--- NOTE | 2022-11-21 11:49 | P.DS_ITS ---
DS: Providers Provider Date of Service: 11/21/22 Date of admission: 11/16/22 19:26 Primary care physician: MARCELA SALGADO Consults: 11/16/22 19:33 Consult to Infectious Diseases Routine Consulting [place] [facility] [place] Reason for consultation: COVID, plus UTI w/ hx of Pseudomonas DS: Diagnosis Discharge Diagnosis (1) UTI (urinary tract infection): Status: Acute (2) COVID-19: Status: Acute (3) Hypoxic: Status: Acute DS: Summary Hospital Course Hospital Course: from initial hpi: 71-year-old male with a PMH significant for dementia, myasthenia gravis, COPD, CAD, and HLD who presents to the ED from SNF with hypoxia and increasing supplemental O2 demand after testing positive for COVID. Patient is a resident [facility] and chronically on 2-3 L O2 at baseline to maintain 94-96% O2. Patient tested positive for COVID earlier today. Patient with advanced dementia, alert and oriented to self only, thus incapable of providing an accurate HPI. In the ED patient had low-grade temp of 100.1 degrees, tachypneic at 27, and satting at 92% on 4 L NC. Labs were significant for stable H&H of 11.7/37.4, ESR elevated at 53, D-dimer 480, bicarb 34, C-reactive protein 9.12. BNP negative at 20. Procalcitonin negative at 0.09. No leukocytosis. Lactic acid WNL at 0.6. UA positive for UTI. Patient tested positive for COVID 19. CXR showed no acute abnormality of the chest. EKG demonstrated normal sinus rhythm without evidence of ST elevations or depressions. Pt was treated with dexameth asone 6 mg IV. ED called SNF to discuss transfer back to facility, but on-call PA was concerned given his multiple comorbidities of myasthenia gravis and COPD that patient might require greater FiO2 concentrations that can be prodded at the nursing facility. Pt will be admitted to the hospital for treatment of acute hypoxic respiratory failure in the setting of COVID infection. hospital course: Patient was admitted for acute hypoxic respiratory failure secondary to COVID. Improve significantly after course of Decadron. And bronchodilators. For urinary tract infection due to chronic indwelling Ar[place]o catheter. Cultures grew Pseudomonas and MRSA. Was seen by infectious disease recommended 14 days of meropenem and p.o. doxy midline was placed. For history of myasthenia gravis was on dexamethasone, will restart prednisone on discharge. For presumed orthostatic hypotension was continue midodrine. For mood disorder was continued on sertraline in risperidone. Hyperlipidemia was continue statin. Patient is feeling better will be discharged [facility]. Time Spent with Patient Time attestation: Total time managing care of this patient today ____ minutes. Discharge coordination time: Greater than 30 minutes Quality: Safe Use of Opioids Does Pt have an Active Cancer Diagnosis on the Problem List?: No Quality: Stroke Does the patient have a stroke diagnosis?: No Physical Exam Vital Signs: Vital Signs: Last Vital Signs Temp 97.6 F 11/21/22 07:38 Pulse 68 11/21/22 07:53 Resp 18 11/21/22 07:53 BP 122/73 11/21/22 07:38 Pulse Ox 94 11/21/22 07:38 O2 Del Method Nasal Cannula 11/21/22 07:38 O2 Flow Rate 2 11/21/22 07:38 Oxygen Flow Rate 4 11/16/22 13:10 BMI result Body Mass Index 28.5 Const: Other: Constitutional : Awake, interactive, not in distress Neck : Normal inspection, Supple Cardiovascular : RRR, no JVP, no lower extremity edema Respiratory : decreased bilateral air entry mainly at the bases, bilateral expiratory rhonchi Gastrointestinal: soft, lax, Normal bowel sounds, Non tender Skin : Warm, Dry Neurological : Alert & oriented to self, No focal deficit DS: Data Data Completed and Pending Completed studies during hospitalization [Text1]: Procedures Insertion of Infusion Device into Right Brachial Vein, Percutaneous Approach (06/01/22) Labs on day of discharge: Preliminary micro results at discharge 11/16/22 16:31 Blood Culture - Preliminary Blood - Venous No growth after 48 hours. 11/16/22 15:56 Blood Culture - Preliminary Blood - Venous No growth after 48 hours. Discharge Plan Discharge Anticipated Discharge Date/Time: 11/19/22 12:18 Patient Disposition: er [facility] Discharge Diagnosis: Covid 19 infection UTI Referrals: MARCELA SALGADO [Primary Care Provider] - 1 Week Discharge Medications: New doxycycline monohydrate 100 mg Capsule 100 mg PO Q12H 14 Days Qty: 0 0RF meropenem 1 gram Recon Soln 1 g IV Q8H 14 Days Qty: 0 0RF Continued bisacodyl 10 mg Suppository 10 mg SC DAILY PRN (Reason: Constipation) Rx Instructions: if milk of magnesia not effective Fleet Enema 19-7 gram/118 mL Enema 118 ml SC BEDTIME PRN (Reason: Constipation) Rx Instructions: when dulcolax suppository not effective albuterol sulfate 2.5 mg /3 mL (0.083 %) Solution For Nebulization 2.5 mg INHALATION Q6H PRN (Reason: Wheezing) aspirin 81 mg Tablet,Delayed Release (Dr/Ec) 81 mg PO DAILY sennosides-docusate sodium [Senna Plus] 8.6-50 mg Tablet 1 tab PO BID PRN (Reason: Constipation) acetaminophen 325 mg Tablet 650 mg PO Q4H PRN (Reason: Fever Or Pain) magnesium hydroxide [Milk of Magnesia] 400 mg/5 mL Suspension 30 ml PO DAILY PRN (Reason: Constipation) Rx Instructions: for no bm in 3 days atorvastatin 10 mg tablet 1 tab PO BEDTIME sertraline 100 mg tablet 1 tab PO DAILY Rx Instructions: take with 50 mg for 150 mg total dose prednisone 5 mg tablet 1 tab PO DAILY Hold Instructions: Until you finish Dexamethasone gabapentin 300 mg capsule 1 cap PO BID omeprazole 20 mg capsule,delayed release(DR/EC) 1 cap PO DAILY@0630 sertraline 50 mg tablet 1 tab PO DAILY Rx Instructions: take with 100 mg for total dose of 150 mg multivitamin Tablet 1 tab PO DAILY melatonin 3 mg Tablet 3 mg PO BEDTIME albuterol sulfate 90 mcg/actuation Hfa Aerosol Inhaler 2 puff INHALATION Q4H PRN (Reason: Shortness Of Breath) risperidone [Risperdal] 0.5 mg Tablet 0.5 mg PO BID cyanocobalamin (vitamin B-12) 1,000 mcg Capsule 1,000 mcg PO DAILY Artificial Tears([id number]) 1-0.2-0.2 % Drops 1 drp OPHTHALMIC (EYE) BID midodrine 5 mg Tablet 5 mg PO TID@0800,1200,1800 Rx Instructions: do not give last dose of day after 6PM or within 4 hrs of bedtime Discharge Orders: Discharge Order (Routine); Ordered 11/21/22 Ordered By: Robert Hoover Diet: Advance to usual diet Activity on Discharge: As tolerated Stand Alone Forms: Patient Portal Discharge page Care Plan Goals: recovery Health Concerns: uti Plan of Treatment: iv merem, doxy po 2 weeks Assessment: see above
== END 2022-11-21 14:30 | DRG 177 ==
LOC: HO.ED 17:42 → HO.EDOVER 19:40 → HO.IMC 20:08
PROVIDERS: Student in an Organized Health Care Education/Training Program; Admitting Provider Student in an Organized Health Care Education/Training Program; Emergency Provider Emergency Medicine Emergency Medical Services; PCP Emergency Medicine; Visit Provider Internal Medicine
PROC: 05HB33Z Insertion of Infusion Device into Right Basilic Vein, Percutaneous Approach (ICD-10-PCS; principal; 2022-11-20 14:00)
DX: U07.1 COVID-19 (principal); J96.21 Acute and chronic respiratory failure with hypoxia; T83.511A Infection and inflammatory reaction due to indwelling urethral catheter, initial encounter; N39.0 Urinary tract infection, site not specified; Y74.8 Miscellaneous general hospital and personal-use devices associated with adverse incidents, not elsewhere classified; G70.00 Myasthenia gravis without (acute) exacerbation; F03.90 Unspecified dementia, unspecified severity, without behavioral disturbance, psychotic disturbance, mood disturbance, and anxiety; N40.1 Benign prostatic hyperplasia with lower urinary tract symptoms; R33.8 Other retention of urine; K21.9 Gastro-esophageal reflux disease without esophagitis; I95.1 Orthostatic hypotension; F39 Unspecified mood [affective] disorder; D70.3 Neutropenia due to infection; I25.10 Atherosclerotic heart disease of native coronary artery without angina pectoris; Z66 Do not resuscitate; J44.9 Chronic obstructive pulmonary disease, unspecified; B96.5 Pseudomonas (aeruginosa) (mallei) (pseudomallei) as the cause of diseases classified elsewhere; B95.62 Methicillin resistant Staphylococcus aureus infection as the cause of diseases classified elsewhere; E78.00 Pure hypercholesterolemia, unspecified; Z79.82 Long term (current) use of aspirin; Z79.52 Long term (current) use of systemic steroids; Z79.899 Other long term (current) drug therapy
CPT/HCPCS: 36410; 36415; 71045; 80048; 80053; 81001; 82550; 82728; 82803; 83605; 83615; 83690; 83735; 83880; 84100; 84145; 84484; 85025; 85027; 85379; 85610; 85652; 85730; 86140; 87040; 87086; 87088; 87186; 87635; 93005; 94640; 99285; C1751; C1758; J0692; J1100; J1642; J1650; J2185

== ENCOUNTER → 2022-11-16 19:26 | Outpatient (BNV) | payer MEDICARE, SELFPAY | PROVIDERS: Admitting Provider Student in an Organized Health Care Education/Training Program; Emergency Provider Emergency Medicine Emergency Medical Services; PCP Emergency Medicine; Visit Provider Student in an Organized Health Care Education/Training Program | DX: N39.0 Urinary tract infection, site not specified (principal); U07.1 COVID-19; J96.21 Acute and chronic respiratory failure with hypoxia | CPT/HCPCS: 99223; 99233; 99239 ==

== ENCOUNTER → 2022-11-16 19:26 | Outpatient (BNV) | payer MEDICARE, SELFPAY | PROVIDERS: Admitting Provider Student in an Organized Health Care Education/Training Program; Emergency Provider Emergency Medicine Emergency Medical Services; PCP Emergency Medicine; Visit Provider Internal Medicine | DX: N39.0 Urinary tract infection, site not specified (principal); U07.1 COVID-19; R09.02 Hypoxemia | CPT/HCPCS: 99222 ==

== ENCOUNTER 2023-02-21 11:44 | Inpatient (IN) | payer MEDICARE, MEDICAID, SELFPAY ==
--- NOTE | ~2023-02-21 | CT_ITS ---
EXAMINATION: CT ABDOMEN AND PELVIS WITHOUT CONTRAST CLINICAL INFORMATION: Right buttock abscess. COMPARISON: None available. TECHNIQUE: Multidetector volumetric imaging was performed from the superior aspect of the liver through the pubic symphysis. Sagittal and coronal reformatted images were obtained on the technologist's workstation. This CT examination was performed using dose optimization techniques as appropriate, variously including the following: *Automated exposure control *Adjustment of mA and/or kV according to patient size (this includes techniques or standardized protocols for targeted exams where dose is matched to indication/reason for exam; i.e. extremities or head) *Use of iterative reconstruction technique DLP: 845 mGy-cm FINDINGS: LUNG BASES: Bibasilar atelectasis is present. LIVER, GALLBLADDER, AND BILIARY TREE: The liver is normal in size and shape but demonstrates decreased attenuation consistent with hepatic steatosis. No focal hepatic lesion or biliary ductal dilatation is present. The gallbladder contains tiny gallstones but otherwise is unremarkable with no evidence of gallbladder wall thickening, or obvious pericholecystic inflammatory changes. PANCREAS: Unremarkable. SPLEEN: Spleen is enlarged at 14.2 cm. ADRENAL GLANDS: Unremarkable. KIDNEYS AND URETERS: The kidneys are normal in size, shape, and attenuation. One small punctate renal calcification is seen in the right kidney with 3 in the left kidney. One calcification on the left is linear and could represent a vascular calcification. No hydronephrosis, hydroureter, or ureteral calculi seen. No perinephric stranding. BLADDER: Arroyo catheter is present in the bladder which is empty. GASTROINTESTINAL TRACT: Large stool ball present in the rectum measuring 8 cm without evidence of obstruction. There are scattered colonic diverticula without diverticulitis. The small and large bowel are otherwise unremarkable. The appendix is unremarkable. ABDOMINAL WALL: There is a tiny periumbilical hernia containing only fat along with tiny bilateral inguinal hernias containing only fat. There is an ill-defined right buttock subcutaneous collection measuring 5.3 x 3.4 by at least 3.6 cm consistent with given history of buttock abscess. LYMPH NODES: No retroperitoneal lymphadenopathy. VASCULAR: Calcific atherosclerotic changes are present in the aorta and iliofemoral vessels. There is no evidence of an abdominal aortic aneurysm. PELVIC VISCERA: The prostate and seminal vesicles are unremarkable. OSSEOUS STRUCTURES: Scoliosis convex to the left. Destructive lesion in L4 vertebral body for displacement of the anterior portion of the vertebral body and some mild posterior displacement indenting the thecal sac. Pharyngeal diagnosis would include a chronic fracture with bone resorption and probably less likely a metastatic lesion. Compression fracture involving the superior endplate of L1. No other bony destructive lesions. CT/CT abdomen pelvis wo IV con IMPRESSION: 1. Right buttock abscess as described above. 2. Destructive lesion L4 vertebral body with displacement of the anterior portion of the vertebral body and some mild posterior displacement indenting the thecal sac. Differential diagnosis as described above. Lumbar spine MRI is recommended for further evaluation. 3. Other incidental findings as described above including hepatic steatosis, cholelithiasis, mild splenomegaly, bilateral nonobstructing renal calculi and a large stool ball in the rectum without obstruction. Fleischner guidelines were followed.
--- NOTE | ~2023-02-21 | XR_ITS ---
EXAMINATION: Pre-MRI orbits. CLINICAL INDICATIONS: Evaluate skull and orbits. TECHNIQUE: AP and lateral views. XR/XR pre mri screening FINDINGS/IMPRESSION: There is no radiopaque foreign body seen in the orbits or the skull. There is a punctate 2 mm radiopaque density seen along the lateral cheek. Patient can be imaged by MRI. The paranasal sinuses are well-aerated. No gross bony abnormality seen. Results were conveyed verbally by phone to the emergency medical technician basic at 12:51 PM
--- NOTE | ~2023-02-21 | MR_ITS ---
EXAMINATION: MR LUMBAR SPINE WITHOUT AND WITH CONTRAST CLINICAL INFORMATION: CT scan with destructive lesion COMPARISON: CT abdomen and pelvis on 02/21/2023 TECHNIQUE: MRI of the lumbar spine was obtained using routine sequences with and without contrast. Intravenous contrast: Gadavist 8 mL FINDINGS: Slight straightening of the normal lumbar lordosis. Trace retrolisthesis at L5-S1. Likely subacute comminuted fracture of the L4 vertebra with significant vertebral body height loss/vertebra plana appearance in the middle. Approximately 2 mm retropulsion as well as mild retrolisthesis of L4 on L5. Subacute fracture deformity of L1 with approximately 20% height loss anteriorly as well as tiny retropulsion. Patchy bone marrow enhancement is identified at these fracture sites. There is suggestion of heterogeneous bone marrow signal and enhancement involving the partially imaged bilateral posterior iliac bones. No other site of abnormal bone marrow enhancement. The remaining vertebral body heights are preserved. Multilevel disc desiccation with suggestion of at least moderate disc height loss at L3-L4. The spinal cord is normal in caliber. No abnormal cord signal or enhancement. The conus medullaris terminates at L1. T12-L1: Tiny retropulsion of L1 fracture. No significant spinal canal or neural foraminal narrowing. L1-L2: Annular fissure. No significant spinal canal or neural foraminal narrowing. L2-L3: Prominent dorsal epidural fat and ligamentum flavum hypertrophy. Bilateral facet arthrosis with small facet joint effusions. Mild spinal canal stenosis. Mild bilateral neural foraminal narrowing. L3-L4: Retropulsion from L4 fracture. Prominent dorsal epidural fat and ligamentum flavum hypertrophy. Moderate spinal canal stenosis with mass effect on the cauda equina nerve roots. Mild left greater than right neural foraminal narrowing. L4-L5: Retropulsion from L4 fracture. Ligamentum flavum hypertrophy and bilateral facet arthrosis. Moderate spinal canal stenosis. Severe right and moderate left neural foraminal narrowing with mass effect on the right exiting L4 nerve roots. L5-S1: Tiny disc bulge and bilateral facet arthrosis. Mild bilateral neural foraminal narrowing with the disc abutting the exiting L5 nerve roots bilaterally. No significant spinal canal stenosis. There is diffuse atrophy of the paravertebral musculature. Left renal cysts. MR/MR lumbar spine wo/w con IMPRESSION: -Subacute L4 burst fracture with significant vertebral body height loss/vertebra plana appearance of L4 and mild retrolisthesis of L4 on L5. There is moderate spinal canal stenosis at L3-L4 and L4-L5 related to retropulsion and degenerative changes. -Subacute to chronic L1 burst fracture with 20% vertebral body height loss. -Heterogeneous bone marrow signal and enhancement involving the partially imaged posterior iliac bones which is nonspecific. No other site of abnormal bone marrow enhancement. -Multilevel degenerative changes of the lumbar spine as described above. Neural foraminal narrowing is worst and severe on the right at L4-L5 with mass effect on the exiting right L4 nerve root.
[2023-02-21 11:48] VITALS: BP 100/60; BP 94/63; PULSE 100; PULSE 106; RESP 26; TEMP 38.3; O2SAT 92; O2SAT 96; BMI 25.8
[2023-02-21 12:19] LABS: MANUAL DIFF FLAG NO
[2023-02-21] MEDS: Acetaminophen 325 MG TABLET 650 MG PO (12:22)
[2023-02-21 12:25] LABS: Basophils Percent Auto 0.2 % (0-2); Eosinophils Percent Auto 0.1 % (0-4); Hematocrit 31.2 % (42.0-52.0); Imm Gran Abs Auto 0.07 X10*3/uL (0.00-0.03); Imm Gran Pct Auto 0.5 % (0.0-0.4); Lymphocytes Absolute Auto 0.4 X10*3/uL (1.2-4.9); Lymphocytes Percent Auto 2.7 % (20-40); Mean Corpuscular HGB Conc 32.1 g/dl (31.0-36.0); Mean Corpuscular Hemoglobin 30.8 pg (27.0-33.0); Mean Platelet Volume 10.6 fL (9.4-12.4); Neutrophils Absolute Auto 12.7 x10*3/uL (2.0-8.3); Neutrophils Percent Auto 89.5 % (45-73); Platelet Count 231 X10*3/uL (160-400); Red Blood Count 3.25 X10*6/uL (4.60-5.80); White Blood Count 14.2 X10*3/uL (4.8-10.8)
[2023-02-21 12:37] LABS: Lactic Acid 1.1 mmol/L (0.5-2.0)
[2023-02-21 12:43] LABS: Troponin-I High Sensitivity 3.7 ng/L (<3.5-35.0)
[2023-02-21 12:48] LABS: Anion Gap 12 (12-20); Blood Urea Nitrogen 15 mg/dL (9-16); Calcium 8.7 mg/dL (8.4-10.2); Carbon Dioxide 29 mmol/L (22-29); Chloride 102 mmol/L (96-108); Creatinine Clr Calc Pharmacy 109.3; Estimated Glomerular Filt Rate > 60; Glucose Random 110 mg/dL (60-115); Potassium 3.7 mmol/L (3.3-5.1); Sodium 139 mmol/L (135-145)
--- NOTE | 2023-02-21 12:53 | ED_ITS ---
HPI - Skin/Abscess/Foreign Bdy General Chief complaint: Skin/Abscess/Foreign Body Stated complaint: WOUND ON BUTT PAIN PER EMS Time Seen by Provider: 02/21/23 12:52 Source: patient and old records reviewed Mode of arrival: EMS Limitations: no limitations History of Present Illness HPI narrative: 72 yo male with PMH of MG on prednisone 5mg daily, COPD, CAD, HLD, dementia, who has had R buttock abscess for 3 days not responding to cephalexin. He was brought to ED today for more pain and fever. He states he has never had this before. MD complaint: abscess/boil Onset (ago): day(s) (3) Tetanus up to date: yes Location: buttocks Severity: moderate Quality: aching Pain Consistency: constant Relieving factors: none Exacerbating factors: none Associated symptoms: fever and chills Treatments prior to arrival: bandages and antibiotic Related Data Home Medications Medication Instructions Recorded Confirmed albuterol sulfate 90 mcg/actuation 2 puff inhalation Q4H PRN 07/16/21 02/21/23 aerosol inhaler Shortness Of Breath atorvastatin 10 mg tablet 1 tab PO BEDTIME@199907/16/21 02/21/23 cyanocobalamin (vitamin B-12) 500 mcg PO DAILY@0807/16/21 02/21/23 1,000 mcg capsule gabapentin 300 mg capsule 1 cap PO BID 07/16/21 02/21/23 melatonin 3 mg tablet 3 mg PO BEDTIME 07/16/21 02/21/23 multivitamin 1 tab PO DAILY 07/16/21 02/21/23 omeprazole 20 mg capsule,delayed 1 cap PO DAILY@0607/16/21 02/21/23 release prednisone 5 mg tablet 1 tab PO DAILY 07/16/21 02/21/23 risperidone 0.5 mg tablet 0.5 mg PO BID 07/16/21 02/21/23 (Risperdal) sertraline 100 mg tablet 1 tab PO DAILY@0807/16/21 02/21/23 sertraline 50 mg tablet 1 tab PO DAILY@0807/16/21 02/21/23 bisacodyl 10 mg rectal suppository 10 mg [place] DAILY PRN Constipation 02/09/22 02/21/23 sodium phosphates 19 gram-7 118 ml [place] BEDTIME PRN Constipation 02/09/22 02/21/23 gram/118 mL enema (Fleet Enema) acetaminophen 325 mg tablet 650 mg PO Q4H PRN Fever Or Pain 06/01/22 02/21/23 albuterol sulfate 2.5 mg/3 mL 2.5 mg inhalation Q6H PRN Wheezing 06/01/22 02/21/23 (0.083 %) solution for nebulization aspirin 81 mg tablet,delayed 81 mg PO DAILY 06/01/22 02/21/23 release magnesium hydroxide 400 mg/5 mL 30 ml PO DAILY PRN Constipation 06/01/22 02/21/23 oral suspension (Milk of Magnesia) midodrine 5 mg tablet 5 mg PO TID@0800,1200,1800 11/16/22 02/21/23 peg [id number]-[id number] 1 1 drp ophthalmic (eye) BID 11/16/22 02/21/23 %-0.2 %-0.2 % eye drops (Artificial Tears ([id number])) cephalexin 500 mg capsule 500 mg PO QID 02/21/23 02/21/23 guaifenesin 400 mg tablet 400 mg PO BID 02/21/23 02/21/23 ipratropium bromide 0.02 % 2.5 ml inhalation Q6H PRN Wheezing 02/21/23 02/21/23 solution for inhalation miconazole nitrate 2 % topical 1 appl topical BID 02/21/23 02/21/23 cream potassium chloride 25 mEq oral 20 meq PO DAILY@1300 02/21/23 02/21/23 packet Allergies Allergy/AdvReac Type Severity Reaction Status Date / Time bacitracin Allergy Unknown Verified 07/16/21 12:22 [From Neosporin ([id number])] iodine Allergy Unknown Verified 07/16/21 12:22 neomycin Allergy Unknown Verified 07/16/21 12:22 [From Neosporin ([id number])] polymyxin B Allergy Unknown Verified 07/16/21 12:22 [From Neosporin ([id number])] Review of Systems 2 Review of Systems: Constitutional : pos Fever, pos Chills ENT/Mouth : No sore throat, No Rhinorrhea Eyes: No Eye Pain, No Swelling, No Redness Cardiovascular : No Chest Pain, No SOB Respiratory : No Cough, No Sputum Gastrointestinal : No Nausea, No Vomiting, No Diarrhea, No abdominal Pain Genitourinary : No Dysuria, No Hematuria Musculoskeletal : No joint pain, No Myalgias, No Joint Swelling Skin : No Skin Lesions, positive skin rash Neuro : No Weakness, No Numbness, No Headache Psych : No Anxiety, No Depression Heme/Lymph: No Bruising, No Bleeding,No Lymphadenopathy Endocrine : No Polyuria, No Polydipsia All other systems reviewed and are negative [facility] Past Medical History Attestation statement: The following information was validated with the patient. Source: old records reviewed Medical History COPD (chronic obstructive pulmonary disease) Myasthenia gravis Dementia High cholesterol Constipation GERD (gastroesophageal reflux disease) Depression BPH (benign prostatic hyperplasia) Compression fx, lumbar spine Compression fx, thoracic spine Myasthenia gravis Urinary retention Dementia Surgical History H/O thymectomy Social History Social History Household Members: None Housing: Assisted Living Facility Housing Other:: [facility] Alcohol intake: never Patient Tobacco Use Status: Tobacco use Unknown Smoked in Last 30 Days: No Use of substances other than those prescribed or required for medical reasons: No Advance Directives: Yes Advance Directives on File: Yes Advance Directives Date on File: 07/17/21 Nutrition Risks: No Nutritional Risk service: No Current occupational status: retired and disabled Physical Exam 2 Vital Signs: Vital Signs: Last Vital Signs Temp 99.4 F 02/21/23 13:47 Pulse 75 02/21/23 20:00 Resp 26 H 02/21/23 20:00 BP 99/64 02/21/23 20:00 Pulse Ox 96 02/21/23 20:00 O2 Del Method Nasal Cannula 02/21/23 20:00 O2 Flow Rate 5 02/21/23 20:00 Oxygen Flow Rate 4 02/21/23 11:48 BMI result Body Mass Index 25.8 Appearance: Alert. Oriented X3. No acute distress. Eyes: Pupils equal, round and reactive to light. ENT: Pharynx normal. Neck: Normal inspection. Neck supple. CVS: Normal heart rate and rhythm. Pulses normal. Respiratory: No respiratory distress. Breath sounds normal. Abdomen: Soft and nontender. Buttocks: R buttock 4x3cm fluctuant area with surrounding cellulitis no crepitus but ttp Skin: Skin warm and dry. Normal skin color. Normal skin turgor. Extremities: No lower extremity edema. No calf ttp Neuro: Oriented X 3. No motor deficit. No sensory deficit. Course Course Course Narrative: will obtain MRI but no b/b incontinence, moving legs and no saddle anesthesia he is shocked he has a back fracture. He is hesitant to get MRI due to costs. I talked about the CT scan and he will proceed to get further workup. He has no signs of neurosurgical emergency. Medications Administered Generic Name Dose Route Start Last Admin Trade Name Freq PRN Reason Stop Dose Admin Atorvastatin Calcium 10 mg 02/21/23 20:00 02/21/23 20:15 Atorvastatin Calcium 10 Mg Tablet PO 10 mg BEDTIME@2000 BUTCH Administration Enoxaparin Sodium 40 mg 02/21/23 18:00 02/21/23 20:15 Enoxaparin Sodium 40 Mg/0.4 Ml Syringe SUBCUT 40 mg Q24H BUTCH Administration Gabapentin 300 mg 02/21/23 21:00 02/21/23 20:15 Gabapentin 300 Mg Capsule PO 300 mg BID BUTCH Administration Lactated Ringer's 1,000 mls @ 100 mls/hr 02/21/23 14:30 02/21/23 14:41 Lr IVCONT 100 mls/hr .Q10H BUTCH Administration Piperacillin Sod/Tazobactam 50 mls @ 100 mls/hr 02/21/23 19:30 02/21/23 20:16 Sod 3.375 gm/ Sodium Chloride IV 100 mls/hr Q6H BUTCH Administration Melatonin 3 mg 02/21/23 21:00 02/21/23 20:17 Melatonin 3 Mg Tablet PO 3 mg BEDTIME BUTCH Administration Risperidone 0.5 mg 02/21/23 21:00 02/21/23 20:15 Risperidone 0.5 Mg Tablet PO 0.5 mg BID BUTCH Administration Discontinued Medications Generic Name Dose Route Start Last Admin Trade Name Freq PRN Reason Stop Dose Admin Acetaminophen 650 mg 02/21/23 12:12 02/21/23 12:22 Acetaminophen 325 Mg Tablet PO 02/21/23 12:13 650 mg ONCE ONE Administration Hydrocortisone Sodium Succinate 100 mg 02/21/23 13:08 02/21/23 13:24 Hydrocortisone Sod Succ/Pf 100 Mg Vial IVPUSH 02/21/23 13:09 100 mg ONCE ONE Administration Piperacillin Sod/Tazobactam 50 mls @ 100 mls/hr 02/21/23 13:08 02/21/23 13:43 Sod 3.375 gm/ Sodium Chloride IV 02/21/23 13:37 Infused ONCE ONE Infusion Sodium Chloride 1,000 mls @ 999 mls/hr 02/21/23 13:15 02/21/23 14:39 Ns IV 02/21/23 14:15 Infused .Q1H1M BUTCH Infusion Vancomycin HCl 2,000 mg in 500 mls @ 250 mls/hr 02/21/23 13:08 02/21/23 13:44 Vancomycin/Ns IV 02/21/23 15:07 250 mls/hr ONCE ONE Administration Sodium Chloride 1,000 mls @ 999 mls/hr 02/21/23 15:00 02/21/23 16:21 Ns IV 02/21/23 16:00 999 mls/hr .Q1H1M BUTCH Administration Lidocaine HCl 5 ml 02/21/23 13:32 02/21/23 16:22 Lidocaine Hcl 1 % Mpf 5 Ml Vial SUBCUT 02/21/23 13:33 Not Given ONCE ONE Medical Decision Making Medical Decision Making MDM Narrative: 72 yo male with PMH of MG on prednisone 5mg daily, COPD, CAD, HLD, dementia, DNR/DNI here with worsening R buttock abscess no response to cephalexin. At this time labs, IVF, cultures - CT scan without contrast given MG for deeper infection, likely I+D, zosyn and vancomycin. He is febrile and tachypneic and BP 100/60 I am going to stress dose steroids now at this time. Differential Diagnosis Differential Diagnoses: The differential diagnosis associated with the presentation includes cellulitis, abscess Admission/Observation Consideration of admission/observation: Escalation of care including admission/observation considered admit for further workup and management Consult Healthcare Provider Management of the patient was discussed with: Hospitalist Lab Data MDM Lab Attestation statement: I reviewed the patient's lab results. 02/21/23 12:10 02/21/23 12:10 Labs: Lab Results 02/21/23 02/21/23 Range/Units 12:10 12:21 WBC 14.2 H (4.8-10.8) X10*3/uL RBC 3.25 L (4.60-5.80) X10*6/uL Hgb 10.0 L (14.0-18.0) g/dl Hct 31.2 L (42.0-52.0) % MCV 96.0 (80.0-98.0) fL MCH 30.8 (27.0-33.0) pg MCHC 32.1 (31.0-36.0) g/dl RDW 14.0 (11.0-16.0) % Plt Count 231 (160-400) X10*3/uL MPV 10.6 (9.4-12.4) fL Immature Gran % (Auto) 0.5 H (0.0-0.4) % Neut % (Auto) 89.5 H (45-73) % Lymph % (Auto) 2.7 L (20-40) % [place] % (Auto) 7.0 (2-11) % Eos % (Auto) 0.1 (0-4) % Baso % (Auto) 0.2 (0-2) % Lymph # (Auto) 0.4 L (1.2-4.9) X10*3/uL [place] # (Auto) 1.0 (0.1-1.2) X10*3/uL Eos # (Auto) 0.0 (0.0-0.4) X10*3/uL Baso # (Auto) 0.0 (0.0-0.2) X10*3/uL Abs Immat Gran (auto) 0.07 H (0.00-0.03) X10*3/uL Absolute Neuts (auto) 12.7 H (2.0-8.3) x10*3/uL Absolute Nucleated RBC 0.000 (0.0-0.012) X10*3/uL Nucleated RBC % (auto) 0.0 (0.0-0.2) /100WBC Sodium 139 (135-145) mmol/L Potassium 3.7 (3.3-5.1) mmol/L Chloride 102 (96-108) mmol/L Carbon Dioxide 29 (22-29) mmol/L Anion Gap 12 (12-20) BUN 15 (9-16) mg/dL Creatinine 0.71 (0.5-1.4) mg/dL Estim Creat Clear Calc 109.3 Estimated GFR > 60 Random Glucose 110 (60-115) mg/dL Lactic Acid 1.1 (0.5-2.0) mmol/L Calcium 8.7 (8.4-10.2) mg/dL Troponin I High Sens 3.7 (<3.5-35.0) ng/L Influenza Type A (PCR) NEGATIVE (Negative) Influenza Type B (PCR) NEGATIVE (Negative) RSV RNA Qual (PCR) NEGATIVE (Negative) SARS-CoV-2 RNA (RT-PCR) NEGATIVE (Negative) Independent Interpretation I performed an independent interpretation of an: CT Scan Radiology Impression Discussion of test interpretation with radiology: I have reviewed the radiologist's reading. Independent Historian Clinical information obtained from an independent historian. History obtained from or confirmed by: EMS External Record Review External record reviewed: Inpatient record Procedures Abscess I/D Site: other (buttock) Side (if applicable): right Local Anesthetic: lidocaine 1% Amount of anesthesia used (mL): 3 Technique: incised with blade Amount of fluid expressed (mL): 10 Sent for culture/gram staining?: No Irrigation: Yes Packing used?: iodoform Critical Care Time Critical Care Time Critical Care Time: Yes Total Critical Care Time: 45 Attestation: IVF 2L bolus, empiric antibiotics, stress dose steroids, RT consult for VC and NIF, admission I attest to this time spent taking care of the patient Discharge Plan Discharge Clinical Impression: Abscess Cellulitis Qualifiers: Site of cellulitis: buttock Qualified Code(s): L03.317 - Cellulitis of buttock Compression fx, lumbar spine Qualifiers: Encounter type: sequela Lumbar vertebra fracture level: L4 Qualified Code(s): S 32.040S - Wedge compression fracture of fourth lumbar vertebra, sequela Patient Disposition: Admitted As Inpatient
[2023-02-21] MEDS: Piperacillin Sodium/Tazobactam 3.375 GM in 0.9 % Sodium Chloride 50 ML IV ×2 (13:24→20:16)
[2023-02-21] MEDS: Hydrocortisone Sod Succ/PF 100 MG VIAL IVPUSH (13:24)
[2023-02-21] MEDS: 0.9 % Sodium Chloride 1,000 ML 999 ML IV ×2 (13:24→16:21)
[2023-02-21 13:32] LABS: Influenza A PCR NEGATIVE (Negative); Influenza B PCR NEGATIVE (Negative); Resp Syncy Virus RNA Qual PCR NEGATIVE (Negative); SARS COV2 PCR INHOUSE NEGATIVE (Negative)
[2023-02-21] MEDS: vancomycin/NS 2,000 MG/500 ML PLAST..BAG 250 MG IV (13:44)
[2023-02-21 13:47] VITALS: BP 100/63; PULSE 94; RESP 25; TEMP 37.4; O2SAT 96
[2023-02-21 14:39] VITALS: BP 99/58; PULSE 90; RESP 30; O2SAT 97
[2023-02-21] MEDS: Lactated Ringers 1,000 ML 100 ML IVCONT (14:41)
[2023-02-21 15:01] VITALS: BP 100/61; PULSE 86
[2023-02-21 15:16] VITALS: BP 120/72; PULSE 89
--- NOTE | 2023-02-21 16:02 | PHA.MEDREC ---
Pharmacy Consult ? Medication Reconciliation Pharmacy has completed the medication reconciliation. List from Cely Cisse
--- NOTE | 2023-02-21 17:10 | PM.IMHP ---
History of Present Illness Date of Service: 02/21/23 Attending physician on admission: Lucy Browne Chief Complaint: Right buttock abscess Pt is a 72-year-old male with a PMH significant for?dementia, myasthenia gravis chronically on prednisone 5mg, COPD chronically on 2-3L NC, CAD, and HLD who presents to the ED from SNF with?right buttock abscess that has failed outpatient therapy. Patient has advanced dementia at baseline, alert and oriented to self only and thus incapable of providing accurate HPI which is instead obtained from chart and provider review. However, patient has no acute medical complaints at this time. And states he feels ?fine?. Does know that he has had a hospital, but has no idea why he is here. At [facility] was started on Keflex 3 days prior but with poor response to oral abx. Presents to ED today d/t increased pain and fever. In the ED pt was febrile up to 100.9, tachycardic up to 100, tachypneic up to 30, with soft BP of 99/58, satting at 92% on 4 L NC. Labs were significant for leukocytosis of 14.2, otherwise grossly unremarkable. Stable normocytic anemia of 10.0/31.2. Electrolytes WNL. Renal function baseline. Lactic acid WNL at 1.0. Initial troponin 3.7. CT?of abdomen and pelvis found right buttock abscess as well as a destructive lesions L4 vertebral body with displacement of the anterior portion of the vertebral body and some mild posterior displacement indenting the thecal sac. Pt had abscess drained in the ED and was treated with IVF, acetaminophen vancomycin, Zosyn, and received stress-dosed steroids. Pt will be admitted to the hospital for treatment of sepsis in the setting right buttock abscess. Review of Systems Review of Systems: Unreliable due to patient's mentation, the patient has no acute medical complaints at this time. [facility] Medical History COPD (chronic obstructive pulmonary disease) Myasthenia gravis Dementia High cholesterol Constipation GERD (gastroesophageal reflux disease) Depression BPH (benign prostatic hyperplasia) Compression fx, lumbar spine Compression fx, thoracic spine Myasthenia gravis Urinary retention Dementia Surgical History H/O thymectomy Social History Household Members: None Housing: Assisted Living Facility Housing Other:: [facility] Alcohol intake: never Patient Tobacco Use Status: Tobacco use Unknown Advance Directives: Yes Advance Directives on File: Yes Advance Directives Date on File: 07/17/21 service: No Current occupational status: retired and disabled Meds Allergies Allergy/AdvReac Type Severity Reaction Status Date / Time bacitracin Allergy Unknown Verified 07/16/21 12:22 [From Neosporin ([id number])] iodine Allergy Unknown Verified 07/16/21 12:22 neomycin Allergy Unknown Verified 07/16/21 12:22 [From Neosporin ([id number])] polymyxin B Allergy Unknown Verified 07/16/21 12:22 [From Neosporin ([id number])] Active Medications: Current Medications Lactated Ringer's (Lr) 1,000 mls @ 100 mls/hr IVCONT .Q10H BUTCH Last Admin: 02/21/23 14:41 Dose: 100 mls/hr Home Medications Medication Instructions Recorded Confirmed Last Taken Type albuterol sulfate 90 mcg/actuation 2 puff inhalation Q4H PRN 07/16/21 02/21/23 Unknown History aerosol inhaler Shortness Of Breath atorvastatin 10 mg tablet 1 tab PO BEDTIME@199907/16/21 02/21/23 Unknown History cyanocobalamin (vitamin B-12) 500 mcg PO DAILY@0800 07/16/21 02/21/23 Unknown History 1,000 mcg capsule gabapentin 300 mg capsule 1 cap PO BID 07/16/21 02/21/23 Unknown History melatonin 3 mg tablet 3 mg PO BEDTIME 07/16/21 02/21/23 Unknown History multivitamin 1 tab PO DAILY 07/16/21 02/21/23 Unknown History omeprazole 20 mg capsule,delayed 1 cap PO DAILY@0630 07/16/21 02/21/23 Unknown History release prednisone 5 mg tablet 1 tab PO DAILY 07/16/21 02/21/23 Unknown History risperidone 0.5 mg tablet 0.5 mg PO BID 07/16/21 02/21/23 Unknown History (Risperdal) sertraline 100 mg tablet 1 tab PO DAILY@0800 07/16/21 02/21/23 Unknown History sertraline 50 mg tablet 1 tab PO DAILY@0800 07/16/21 02/21/23 Unknown History bisacodyl 10 mg rectal suppository 10 mg [place] DAILY PRN Constipation 02/09/22 02/21/23 Unknown History sodium phosphates 19 gram-7 118 ml [place] BEDTIME PRN Constipation 02/09/22 02/21/23 Unknown History gram/118 mL enema (Fleet Enema) acetaminophen 325 mg tablet 650 mg PO Q4H PRN Fever Or Pain 06/01/22 02/21/23 Unknown History albuterol sulfate 2.5 mg/3 mL 2.5 mg inhalation Q6H PRN Wheezing 06/01/22 02/21/23 Unknown History (0.083 %) solution for nebulization aspirin 81 mg tablet,delayed 81 mg PO DAILY 06/01/22 02/21/23 Unknown History release magnesium hydroxide 400 mg/5 mL 30 ml PO DAILY PRN Constipation 06/01/22 02/21/23 Unknown History oral suspension (Milk of Magnesia) midodrine 5 mg tablet 5 mg PO TID@0800,1200,1800 11/16/22 02/21/23 Unknown History peg [id number]-hlacsrig 1 1 drp ophthalmic (eye) BID 11/16/22 02/21/23 Unknown History %-0.2 %-0.2 % eye drops (Artificial Tears ([id number])) cephalexin 500 mg capsule 500 mg PO QID 02/21/23 02/21/23 Unknown History guaifenesin 400 mg tablet 400 mg PO BID 02/21/23 02/21/23 Unknown History ipratropium bromide 0.02 % 2.5 ml inhalation Q6H PRN Wheezing 02/21/23 02/21/23 Unknown History solution for inhalation miconazole nitrate 2 % topical 1 appl topical BID 02/21/23 02/21/23 Unknown History cream potassium chloride 25 mEq oral 20 meq PO DAILY@1300 02/21/23 02/21/23 Unknown History packet Physical Exam Vital Signs and Narrative: Vital Signs: Last Vital Signs Temp 99.4 F 02/21/23 13:47 Pulse 86 02/21/23 15:01 Resp 30 H 02/21/23 14:39 BP 100/61 02/21/23 15:01 Pulse Ox 97 02/21/23 14:39 O2 Del Method Nasal Cannula 02/21/23 14:39 O2 Flow Rate 4 02/21/23 14:39 Oxygen Flow Rate 4 02/21/23 11:48 BMI result Body Mass Index 25.8 General: AOx1, no acute distress, seen resting comfortably in bed Resp: Diffuse mild end-expiratory wheezing bilaterally CVS: S1, S2, RRR GI: +BS, NT, no distention Skin: Warm, dry; right buttock with clean dressing in place Neuro: Cranial nerves II-XII grossly intact bilaterally. Motor grossly intact bilaterally Extremities: 2+ bilateral pitting edema Psych: Pleasantly confused Results Labs 02/21/23 12:10 02/21/23 12:10 Labs: Laboratory Results - last 24 hr 02/21/23 02/21/23 12:10 12:21 MCV 96.0 MCH 30.8 MCHC 32.1 RDW 14.0 Plt Count 231 MPV 10.6 Immature Gran % (Auto) 0.5 H Neut % (Auto) 89.5 H Lymph % (Auto) 2.7 L [place] % (Auto) 7.0 Eos % (Auto) 0.1 Baso % (Auto) 0.2 Lymph # (Auto) 0.4 L [place] # (Auto) 1.0 Eos # (Auto) 0.0 Baso # (Auto) 0.0 Abs Immat Gran (auto) 0.07 H Absolute Neuts (auto) 12.7 H Absolute Nucleated RBC 0.000 Nucleated RBC % (auto) 0.0 Anion Gap 12 Estim Creat Clear Calc 109.3 Estimated GFR > 60 Random Glucose 110 Lactic Acid 1.1 Calcium 8.7 Influenza Type A (PCR) NEGATIVE Influenza Type B (PCR) NEGATIVE RSV RNA Qual (PCR) NEGATIVE SARS-CoV-2 RNA (RT-PCR) NEGATIVE Imaging Radiologist's Impressions: Impressions Abdomen/Pelvis CT 02/21/23 14:47 IMPRESSION: 1. Right buttock abscess as described above. 2. Destructive lesion L4 vertebral body with displacement of the anterior portion of the vertebral body and some mild posterior displacement indenting the thecal sac. Differential diagnosis as described above. Lumbar spine MRI is recommended for further evaluation. 3. Other incidental findings as described above including hepatic steatosis, cholelithiasis, mild splenomegaly, bilateral nonobstructing renal calculi and a large stool ball in the rectum without obstruction. Fleischner guidelines were followed. Assessment and Plan (1) Abscess: Status: Acute Plan Pt is a 72-year-old male with a PMH significant for?dementia, myasthenia gravis chronically on prednisone 5mg, COPD chronically on 2-3L NC, CAD, and HLD who presents to the ED from SNF with?right buttock abscess that has failed outpatient therapy. Pt will be admitted to the hospital for treatment of sepsis in the setting right buttock abscess. Right buttock cellulitis and abscess Failed outpatient therapy on 3 days of Keflex Had abscess drained in the ED Patient meets sepsis criteria: Cellulitis, tachycardia, tachypnea, wbc's; lactic acid WNL 1.1 Patient received IVF and started on broad-spectrum antibiotics in the ED Will treat with vanc and Zosyn, started 02/21/2023 Destructive lesion L4 vetebral body Ct of abd/pelvis found destructive lesion L4 vertebral body with displacement of anterior portion of the vertebral body and some mild posterior displacement indenting the thecal sac Differential includes chronic fracture with bone reabsoption versus metastatic lesion SNF denies recent hx of falls; pt non-ambulatory at baseline, uses Marky lift and wheelchair Will bet MRI of lumbar spine Myasthenia gravis Received hydrocortisone 100 mg IV in ED Continue home prednisone tomorrow Presumed orthostatic hypotension Continue midodrine Mood disorder Continue home meds HLD Continue statin COPD Mild wheezing noted on exam Continue home inhalers DNR/DNI Attending:?Dr. Browne DVT Prophylaxis: Lovenox Pt will require a hospitalization of at least two nights for treatment of?sepsis in the setting of right buttock cellulitis and abscess. Quality Stroke Does the patient have a stroke diagnosis?: No VTE Prior VTE?: No VTE Risk Level:: Medical - moderate - high VTE Device Contraindication: Treatment Not Indicated VTE Drug Contraindication: N/A - Med Ordered
--- NOTE | 2023-02-21 19:30 | PHA.PROG ---
Admission Date/Time: February 21, 2023 17:46 Indication:KINS Weight in k kg Adjusted body weight in K.72 [place] body weight in K.2 Obesity Dosing Indication % IBW:25.8 Serum Creatinine - Last 168 Hours 02/21/23 12:10 Creatinine 0.71 Estimated CrCl and GFR - Last 168 Hours 02/21/23 12:10 Estim Creat Clear Calc 109.3 Estimated GFR > 60 Vancomycin Loading Dose: 2000 MG Current Vancomycin Dosing Regimen:1000 MG Q12 Vancomycin Monitoring using AUC goal of 400 - 600 range with trough as surrogate marker:439 WITH TROUGH 13.7 Date and Time for next Vancomycin Level to be drawn:02/22 @2100 Pharmacist Comments on Vancomycin Plan: PT IS ON CONCURRENT ZOSYN AND OVER 65 YEARS OLD SO DOSING IS MORE CONSERVATIVE TO BE CAUTIOUS OF RENAL IMPAIRMENT. Vancomycin dosing will take advantage of [employer] as a clinical decision support tool that uses Bayesian modeling to calculate individual patient's pharmacokinetic parameters and forecast the patient's drug concentration time course with the target goal AUC 24 range of 400 - 600 mg/L/hr.
[2023-02-21 20:00] VITALS: BP 99/64; PULSE 75; RESP 26; O2SAT 96
[2023-02-21] MEDS: Enoxaparin Sodium 40 MG/0.4 ML SYRINGE SUBCUT (20:15)
[2023-02-21] MEDS: Gabapentin 300 MG CAPSULE PO (20:15)
[2023-02-21] MEDS: risperiDONE 0.5 MG TABLET PO (20:15)
[2023-02-21] MEDS: Atorvastatin Calcium 10 MG TABLET PO (20:15)
[2023-02-21] MEDS: Melatonin 3 MG TABLET PO (20:17)
--- NOTE | 2023-02-21 22:17 | PC.NURSE ---
Patient alert and oriented x 1-2. forgetful. Patient is from [facility]. Patients abscess on right buttock lanced and drained by Dr. Solano copious amounts of pus removed and cleaned with normal saline and packed by Dr. Solano. Drainage abd pad on wound and 2 allevyn dressing. Patient denies any pain. Patients left wrist iv was leaking removed and applied dressing. Patient has a bean catheter chronic urine cloudy. iv antiobiotics given and fluids. Patient admitted. Will continue with plan of care.
[2023-02-22] VITALS (8 sets, daily range): BP systolic 96–123; BP diastolic 64–75; PULSE 86–103; RESP 16–22; TEMP 36.1–36.6; O2SAT 90–99; BMI 25.8
[2023-02-22] MEDS: Lactated Ringers 1,000 ML 100 ML IVCONT ×2 (00:49→12:03)
[2023-02-22] MEDS: Artificial Tears 15 ML DROPS 1 DROP EYE-BOTH ×3 (00:50→22:15)
[2023-02-22] MEDS: vancomycin HCL 1,000 MG in 0.9 % Sodium Chloride 250 ML 270 MG IV ×2 (00:50→12:03)
--- NOTE | 2023-02-22 00:59 | PC.NURSE ---
Took over care from Rn Leland, 23:00, Medicated pt per May, pt alert and answer question appropriately at this time. pt resting comfortable at this time.
[2023-02-22] MEDS: Piperacillin Sodium/Tazobactam 3.375 GM in 0.9 % Sodium Chloride 50 ML IV ×4 (03:01→22:15)
--- NOTE | 2023-02-22 03:03 | PC.NURSE ---
medicated per Mar. pt resting at this time with no sign of distress.
--- NOTE | 2023-02-22 06:04 | PC.NURSE ---
pt incontinent of stool, tomas care completed and bed change.
[2023-02-22] MEDS: predniSONE 5 MG TABLET PO (08:49)
[2023-02-22] MEDS: Sertraline HCL 100 MG TABLET PO (08:49)
[2023-02-22] MEDS: risperiDONE 0.5 MG TABLET PO ×2 (08:49→22:14)
[2023-02-22] MEDS: Omeprazole 20 MG CAPSULE.DR PO (08:49)
[2023-02-22] MEDS: Gabapentin 300 MG CAPSULE PO ×2 (08:49→22:14)
[2023-02-22] MEDS: Aspirin Enteric Coated 81 MG TABLET.DR PO (08:49)
[2023-02-22] MEDS: Multivitamin TABLET 1 TAB PO (08:49)
[2023-02-22] MEDS: Sertraline HCL 50 MG TABLET PO (08:49)
[2023-02-22] MEDS: Cyanocobalamin (Vitamin B-12) 500 MCG TABLET PO (08:49)
[2023-02-22] MEDS: Midodrine HCl 5 MG TABLET PO ×4 (08:49→16:59)
[2023-02-22 10:19] LABS: Hemoglobin 10.2 g/dl (14.0-18.0); Mean Corpuscular HGB Conc 30.9 g/dl (31.0-36.0); Mean Corpuscular Hemoglobin 30.1 pg (27.0-33.0); Mean Corpuscular Volume 97.3 fL (80.0-98.0); Mean Platelet Volume 10.9 fL (9.4-12.4); Platelet Count 252 X10*3/uL (160-400); Red Blood Count 3.39 X10*6/uL (4.60-5.80)
[2023-02-22 10:48] LABS: Anion Gap 12 (12-20); Blood Urea Nitrogen 14 mg/dL (9-16); Calcium 8.8 mg/dL (8.4-10.2); Carbon Dioxide 27 mmol/L (22-29); Chloride 109 mmol/L (96-108); Creatinine Clr Calc Pharmacy 129.3; Estimated Glomerular Filt Rate > 60; Glucose Random 92 mg/dL (60-115); Potassium 3.4 mmol/L (3.3-5.1); Sodium 145 mmol/L (135-145)
--- NOTE | 2023-02-22 10:58 | HO.WOUND ---
Wound Consult: Initial 72yr old male admitted to [facility] [place] on 02/21/23 17:46? - See progress notes and H&P for detailed history. Chart review reveals I&D performed in ED to Right Buttock. Direct care team requested wound care consult for right buttock and Right great toe. Right Buttock Etiology: I&D site for Abscess Measurements: 1cm x 0.4cm x 5cm with circumfrential undermining max depth of 5cm at 5 o'clock Wound Bed: unable to visualize Drainage / Odor: Creamy sero-purulent drainage = copisous amount - no odor noted Edges: ? unattcahed / open Pauline wound: ? red blanchable intact wamt tissue with dry desquamation noted Fluctuance, Erythema, Warmth noted to the right buttocks No Induration noted, Pain: Pain reported Goals of Treatment: ?Packing to Right Buttock to allow for drainage Right Great Toe Etiology: Ingrown toenail and ulceration Measurements: 1cm x 0.2cm x 0.1cm Wound Bed: red moist wound bed Drainage / Odor: yellow no odor - small amount Edges: ? nonadherent Pauline wound: ? red warm and tender to touch macerated edges and black toe nail Pain: Pain reported Goals of Treatment: Defer to provider to consider surgery consult and treatment - topical treatment with Durafiber AG for moisture management Recommendations: 1. Turn and Reposition every 2 hours and as needed for patient comfort. 2. Off Load all bony prominences with use of pillows. 3. Monitor for incontinence and moisture control. 4. Provide adequate and supplemental nutrition. 5. Order or Continue low air loss mattress. 6. Right buttock - Off Load Pressure - Cleanse and irrigate with NS, pat dry. Apply skin prep to the periwound. Lightly pack I&D site with 1/4 - 1/2 packing strip. Cover with dry gauze pad and foam dressing. Change Daily 7. Right Great Toe - Cleanse with NS, pat dry. Cover wound bed with cut to size Durafiber AG cover with gauze pad and gauze roll. Change Daily. Re-consult wound care Nurse for wound deterioration or wound changes.
[2023-02-22] MEDS: Albuterol/Iprat 2.5/0.5MG 3 ML AMPUL.NEB INHALE ×3 (11:23→19:30)
[2023-02-22] MEDS: Furosemide 20 MG/2 ML VIAL IVPUSH (11:52)
--- NOTE | 2023-02-22 12:52 | MHC.CM.PN ---
pt from [facility] where he will be returning when dcd
[2023-02-22] MEDS: gadobutroL 10 ML VIAL IVPUSH (13:59)
[2023-02-22] MEDS: Potassium Chloride ER 20 MEQ TAB.ER.PRT PO (14:24)
--- NOTE | 2023-02-22 15:54 | P.PNIM_ITS ---
Subjective Subjective Date of Service: 02/22/23 Interval History: Seen and evaluated this morning alert, interactive sweetly confused Denies any fever or chills report pain at the abscess site Review of Systems Review of Systems: Yes all other systems are reviewed and are negative Physical Exam 2 Vital Signs: Vital Signs: Last Vital Signs Temp 96.9 F 02/22/23 07:57 Pulse 103 H 02/22/23 15:01 Resp 18 02/22/23 15:01 BP 117/71 02/22/23 07:57 Pulse Ox 95 02/22/23 07:57 O2 Del Method Nasal Cannula 02/22/23 07:57 O2 Flow Rate 3 02/22/23 07:57 Oxygen Flow Rate 4 02/21/23 11:48 BMI result Body Mass Index 25.8 Const: Other: Constitutional : Awake, interactive, not in distress Neck : Normal inspection, Supple Cardiovascular : RRR, no JVP, +1 lower extremity edema Respiratory : good bilateral air entry, no crackles, wheezes or rhonchi Gastrointestinal: soft, lax, Normal bowel sounds, Non tender Skin : Warm, Dry, right buttock with dressing over the open wound, no drainage or erythema Neurological : Alert & disoriented x3, No focal deficit Objective Data Active Medications Acetaminophen (Acetaminophen 325 Mg Tablet) 650 mg PO Q6H PRN PRN Reason: Pain, Mild (Pain Scale 1-3) Albuterol Sulfate (Albuterol Sulfate (0.083%) 2.5 Mg/3 Ml Vial.Neb) 2.5 mg INHALE RQ6H PRN PRN Reason: Wheezing Albuterol Sulfate (Albuterol Sulfate 90 Mcg 8 Gm Inhaler) 2 puff INHALE RQ4H PRN PRN Reason: Shortness Of Breath Albuterol/Ipratropium (Albuterol/Iprat 2.5/0.5mg 3 Ml Ampul.Neb) 3 ml INHALE RQ6H WHILE AWAKE [facility] Last Admin: 02/22/23 14:59 Dose: 3 ml Documented By: NESTOR Artificial Tears (Artificial Tears 15 Ml Drops) 1 drop EYE-BOTH BID [facility] Last Admin: 02/22/23 11:53 Dose: 1 drop Documented By: LEONARDO Aspirin (Aspirin Enteric Coated 81 Mg Tablet.) 81 mg PO DAILY [facility] Last Admin: 02/22/23 08:49 Dose: 81 mg Documented By: LEONARDO Atorvastatin Calcium (Atorvastatin Calcium 10 Mg Tablet) 10 mg PO BEDTIME@2000 [facility] Last Admin: 02/21/23 20:15 Dose: 10 mg Documented By: GERALD Benzonatate (Benzonatate 100 Mg Capsule) 100 mg PO TID PRN PRN Reason: Cough Bisacodyl (Bisacodyl 10 Mg Supp.Rect) 10 mg FL DAILY PRN PRN Reason: Constipation Cyanocobalamin (Cyanocobalamin (Vitamin B-12) 500 Mcg Tablet) 500 mcg PO DAILY@0800 [facility] Last Admin: 02/22/23 08:49 Dose: 500 mcg Documented By: LEONARDO Docusate Sodium (Docusate Sodium 100 Mg Capsule) 100 mg PO DAILY PRN PRN Reason: Constipation Enoxaparin Sodium (Enoxaparin Sodium 40 Mg/0.4 Ml Syringe) 40 mg SUBCUT Q24H [facility] Last Admin: 02/21/23 20:15 Dose: 40 mg Documented By: GERALD Furosemide (Furosemide 20 Mg/2 Ml Vial) 20 mg IVPUSH DAILY [facility]; Protocol Last Admin: 02/22/23 11:52 Dose: 20 mg Documented By: LEONARDO Gabapentin (Gabapentin 300 Mg Capsule) 300 mg PO BID [facility] Last Admin: 02/22/23 08:49 Dose: 300 mg Documented By: LEONARDO Lactated Ringer's (Lr) 1,000 mls @ 100 mls/hr IVCONT .Q10H [facility] Last Admin: 02/22/23 12:03 Dose: 100 mls/hr Documented By: LEONARDO Vancomycin HCl 1,000 mg/ (Sodium Chloride) 270 mls @ 270 mls/hr IV Q12H [facility] Last Infusion: 02/22/23 13:09 Dose: Infused Documented By: LEONARDO Piperacillin Sod/Tazobactam (Sod 3.375 gm/ Sodium Chloride) 50 mls @ 100 mls/hr IV Q6H [facility] Last Admin: 02/22/23 15:17 Dose: 100 mls/hr Documented By: LEONARDO Ipratropium Mcallen (Ipratropium Mcallen 0.5 Mg/2.5 Ml Solution) 0.5 mg INHALE RQ6H PRN PRN Reason: Wheezing Magnesium Hydroxide (Milk Of Magnesia 30 Ml Oral.Susp) 30 ml PO DAILY PRN PRN Reason: Constipation Melatonin (Melatonin 3 Mg Tablet) 6 mg PO BEDTIME PRN PRN Reason: Insomnia Melatonin (Melatonin 3 Mg Tablet) 3 mg PO BEDTIME [facility] Last Admin: 02/21/23 20:17 Dose: 3 mg Documented By: GERALD Midodrine (Midodrine Hcl 5 Mg Tablet) 5 mg PO TID@0800,1200,1800 [facility] Last Admin: 02/22/23 11:54 Dose: 5 mg Documented By: LEONARDO Multivitamins/Vitamin C (Multivitamin Tablet) 1 tab PO DAILY [facility] Last Admin: 02/22/23 08:49 Dose: 1 tab Documented By: LEONARDO Omeprazole (Omeprazole 20 Mg Capsule.) 20 mg PO DAILY@0630 [facility] Last Admin: 02/22/23 08:49 Dose: 20 mg Documented By: LEONARDO Ondansetron HCl (Ondansetron Hcl 4 Mg/2 Ml Vial) 4 mg IVPUSH Q8H PRN PRN Reason: Nausea and Vomiting Pharmacy Consult (Consult Rx Vancomycin Dosing) 1 each MISCELLANE DAILY PRN PRN Reason: Consult order Potassium Chloride (Potassium Chloride Er 20 Meq Tab.Er.Prt) 20 meq PO DAILY@1300 [facility] Last Admin: 02/22/23 14:24 Dose: 20 meq Documented By: LEONARDO Prednisone (Prednisone 5 Mg Tablet) 5 mg PO DAILY [facility] Last Admin: 02/22/23 08:49 Dose: 5 mg Documented By: LEONARDO Risperidone (Risperidone 0.5 Mg Tablet) 0.5 mg PO BID [facility] Last Admin: 02/22/23 08:49 Dose: 0.5 mg Documented By: LEOANRDO Sertraline HCl (Sertraline Hcl 50 Mg Tablet) 50 mg PO DAILY@0800 [facility] Last Admin: 02/22/23 08:49 Dose: 50 mg Documented By: LEONARDO Sertraline HCl (Sertraline Hcl 100 Mg Tablet) 100 mg PO DAILY@0800 [facility] Last Admin: 02/22/23 08:49 Dose: 100 mg Documented By: LEONARDO Sodium Biphosphate/Sodium Phosphate (Sodium Phosphate,[place]-Dibasic 133 Ml Enema) 118 ml FL BEDTIME PRN PRN Reason: Constipation Sodium Chloride (0.9 % Sodium Chloride Flush 3 Ml Syringe) 3 ml IVFLUSH QSHIFT [facility] Last Admin: 02/22/23 08:53 Dose: Not Given Documented By: LEONARDO Non-Admin Reason: IV Running Labs 02/22/23 10:02 02/22/23 10:02 Labs: Laboratory Results - last 24 hr 02/22/23 10:02 MCV 97.3 MCH 30.1 MCHC 30.9 L RDW 14.0 Plt Count 252 MPV 10.9 Absolute Nucleated RBC 0.000 Nucleated RBC % (auto) 0.0 Anion Gap 12 Estim Creat Clear Calc 129.3 Estimated GFR > 60 Random Glucose 92 Calcium 8.8 Microbiology Microbiology Results: Microbiology 02/21/23 12:21 Blood Culture - Preliminary Blood - Venous No growth after 24 hours. 02/21/23 12:10 Blood Culture - Preliminary Blood - Venous No growth after 24 hours. Assessment and Plan (1) Cellulitis: Status: Acute (2) Abscess: Status: Acute (3) Sepsis: Status: Acute (4) Lactic acidosis: Status: Acute (5) Compression fx, lumbar spine: Status: Acute Plan Pt is a 72-year-old male with a PMH significant for?dementia, myasthenia gravis chronically on prednisone 5mg, COPD chronically on 2-3L NC, CAD, and HLD who presents to the ED from SNF with?right buttock abscess that has failed outpatient therapy. Pt will be admitted to the hospital for treatment of sepsis in the setting right buttock abscess. Sepsis 2/2 Right buttock cellulitis and abscess abscess drained in the ED DC IVF Pending cultures Continue vanc and Zosyn, started 02/21/2023 Destructive lesion L4 vetebral body Ct of abd/pelvis found destructive lesion L4 vertebral body with displacement of anterior portion of the vertebral body and some mild posterior displacement indenting the thecal sac SNF denies recent hx of falls; pt non-ambulatory at baseline, uses Marky lift and wheelchair MRI of lumbar spine showing Subacute L4 burst fracture with significant vertebral body height loss/vertebra plana appearance of L4 and mild retrolisthesis of L4 on L5. There is moderate spinal canal stenosis at L3-L4 and L4-L5 related to retropulsion and degenerative changes. Myasthenia gravis Continue home prednisone Presumed orthostatic hypotension Continue midodrine Mood disorder Continue home meds HLD Continue statin COPD Mild wheezing noted on exam Continue home inhalers DNR/DNI DVT Prophylaxis: Lovenox Pt will require a hospitalization of overnight for treatment of?sepsis in the setting of right buttock cellulitis and abscess. Quality Stroke Does the patient have a stroke diagnosis?: No VTE Prior VTE?: No VTE Risk Level:: Medical - moderate - high VTE Device Contraindication: Treatment Not Indicated VTE Drug Contraindication: N/A - Med Ordered
[2023-02-22] MEDS: Enoxaparin Sodium 40 MG/0.4 ML SYRINGE SUBCUT (16:58)
[2023-02-22 21:39] LABS: Vancomycin Random 20.1 mcg/mL (15-20)
[2023-02-22] MEDS: Melatonin 3 MG TABLET PO (22:14)
[2023-02-22] MEDS: Atorvastatin Calcium 10 MG TABLET PO (22:15)
[2023-02-22] MEDS: vancomycin HCL 500 MG in 0.9 % Sodium Chloride 100 ML 110 MG IV (23:19)
[2023-02-22] MEDS: 0.9 % Sodium Chloride Flush 3 ML SYRINGE IVFLUSH (23:26)
[2023-02-23 02:35] VITALS: BP 103/64; PULSE 100; RESP 16; TEMP 36.1; O2SAT 89
[2023-02-23] MEDS: Piperacillin Sodium/Tazobactam 3.375 GM in 0.9 % Sodium Chloride 50 ML IV ×4 (04:19→20:33)
[2023-02-23 05:36] LABS: Hematocrit 28.1 % (42.0-52.0); Hemoglobin 8.9 g/dl (14.0-18.0); Mean Corpuscular HGB Conc 31.7 g/dl (31.0-36.0); Mean Corpuscular Hemoglobin 29.9 pg (27.0-33.0); Mean Corpuscular Volume 94.3 fL (80.0-98.0); Mean Platelet Volume 10.8 fL (9.4-12.4); Platelet Count 245 X10*3/uL (160-400); Red Blood Count 2.98 X10*6/uL (4.60-5.80); White Blood Count 7.8 X10*3/uL (4.8-10.8)
[2023-02-23 05:58] LABS: Anion Gap 10 (12-20); Blood Urea Nitrogen 14 mg/dL (9-16); Calcium 8.2 mg/dL (8.4-10.2); Carbon Dioxide 28 mmol/L (22-29); Chloride 109 mmol/L (96-108); Creatinine Clr Calc Pharmacy 114.1; Estimated Glomerular Filt Rate > 60; Glucose Random 97 mg/dL (60-115); Potassium 2.9 mmol/L (3.3-5.1); Sodium 144 mmol/L (135-145)
[2023-02-23] MEDS: Omeprazole 20 MG CAPSULE.DR PO (06:40)
[2023-02-23 07:59] VITALS: BP 116/67; PULSE 78; RESP 12; TEMP 36.4; O2SAT 92
--- NOTE | 2023-02-23 08:26 | P.CONGS_ITS ---
History of Present Illness Consult details Consult date: 02/23/23 Requesting physician: Tasneem Jones Narrative: 72-year-old male patient With past medical history of dementia, myasthenia gravis, COPD, coronary artery disease and hyperlipidemia presenting from the [facility] with a right buttock abscess which was worsening. He subsequently presented to the emergency department and underwent incision and drainage of the abscess. He was also found to have compression fractures of the lumbar spine. Surgical consultation was requested regarding his right great toe which is draining pus. This was felt to be possibly due to an ingrown toenail. Patient reports pain associated with pressure on the toe but otherwise is comfortable. Review of Systems 2 Review of Systems: Yes Unobtainable due to mental status Neurologic: Reports confusion Psychiatric: Psychiatric: Reports confusion PMFSH Past Medical History Medical History COPD (chronic obstructive pulmonary disease) Myasthenia gravis Dementia High cholesterol Constipation GERD (gastroesophageal reflux disease) Depression BPH (benign prostatic hyperplasia) Compression fx, lumbar spine Compression fx, thoracic spine Myasthenia gravis Urinary retention Dementia Surgical History Surgical History H/O thymectomy Social History Social History Household Members: Other Household Members Other:: lives in SNF Housing: Assisted Living Facility Housing Other:: [facility] Do you presently have visiting nurse or other home services: Yes (Pt lives at [facility]) Alcohol intake: never Patient Tobacco Use Status: Tobacco use Unknown Smoked in Last 30 Days: No Use of substances other than those prescribed or required for medical reasons: No Currently Displaying Signs/Symptoms of Drug Intoxication Withdrawal: No Have you been hit, kicked, punched, or otherwise hurt by someone within the past year? If so, by whom?: No Do you feel safe in your current relationship?: No Current Relationship Is there a partner from a previous relationship who is making you feel unsafe now?: No Are you made to feel afraid or neglected: No Advance Directives: Yes Advance Directives on File: Yes Advance Directives Date on File: 07/17/21 Do you have thoughts of harming others: None Do you have a plan to hurt others: No Plan Recently lost weight without trying: Unsure Nutrition Risks: No Nutritional Risk Poor oral hygiene: No service: No Current occupational status: retired and disabled Meds Allergies Allergy/AdvReac Type Severity Reaction Status Date / Time bacitracin Allergy Unknown Verified 07/16/21 12:22 [From Neosporin ([id number])] iodine Allergy Unknown Verified 07/16/21 12:22 neomycin Allergy Unknown Verified 07/16/21 12:22 [From Neosporin ([id number])] polymyxin B Allergy Unknown Verified 07/16/21 12:22 [From Neosporin ([id number])] Active Medications: Current Medications Acetaminophen (Acetaminophen 325 Mg Tablet) 650 mg PO Q6H PRN PRN Reason: Pain, Mild (Pain Scale 1-3) Albuterol Sulfate (Albuterol Sulfate (0.083%) 2.5 Mg/3 Ml Vial.Neb) 2.5 mg INHALE RQ6H PRN PRN Reason: Wheezing Albuterol Sulfate (Albuterol Sulfate 90 Mcg 8 Gm Inhaler) 2 puff INHALE RQ4H PRN PRN Reason: Shortness Of Breath Albuterol/Ipratropium (Albuterol/Iprat 2.5/0.5mg 3 Ml Ampul.Neb) 3 ml INHALE RQ6H WHILE AWAKE [facility] Last Admin: 02/22/23 19:30 Dose: 3 ml Artificial Tears (Artificial Tears 15 Ml Drops) 1 drop EYE-BOTH BID [facility] Last Admin: 02/22/23 22:15 Dose: 1 drop Aspirin (Aspirin Enteric Coated 81 Mg Tablet.) 81 mg PO DAILY [facility] Last Admin: 02/22/23 08:49 Dose: 81 mg Atorvastatin Calcium (Atorvastatin Calcium 10 Mg Tablet) 10 mg PO BEDTIME@2000 [facility] Last Admin: 02/22/23 22:15 Dose: 10 mg Benzonatate (Benzonatate 100 Mg Capsule) 100 mg PO TID PRN PRN Reason: Cough Bisacodyl (Bisacodyl 10 Mg Supp.Rect) 10 mg SD DAILY PRN PRN Reason: Constipation Cyanocobalamin (Cyanocobalamin (Vitamin B-12) 500 Mcg Tablet) 500 mcg PO DAILY@0800 [facility] Last Admin: 02/22/23 08:49 Dose: 500 mcg Docusate Sodium (Docusate Sodium 100 Mg Capsule) 100 mg PO DAILY PRN PRN Reason: Constipation Enoxaparin Sodium (Enoxaparin Sodium 40 Mg/0.4 Ml Syringe) 40 mg SUBCUT Q24H [facility] Last Admin: 02/22/23 16:58 Dose: 40 mg Furosemide (Furosemide 20 Mg/2 Ml Vial) 20 mg IVPUSH DAILY [facility]; Protocol Last Admin: 02/22/23 11:52 Dose: 20 mg Gabapentin (Gabapentin 300 Mg Capsule) 300 mg PO BID [facility] Last Admin: 02/22/23 22:14 Dose: 300 mg Piperacillin Sod/Tazobactam (Sod 3.375 gm/ Sodium Chloride) 50 mls @ 100 mls/hr IV Q6H [facility] Last Infusion: 02/23/23 05:00 Dose: Infused Vancomycin HCl 500 mg/ Sodium (Chloride) 110 mls @ 110 mls/hr IV Q12H [facility] Last Infusion: 02/23/23 00:31 Dose: Infused Ipratropium [place] (Ipratropium [place] 0.5 Mg/2.5 Ml Solution) 0.5 mg INHALE RQ6H PRN PRN Reason: Wheezing Magnesium Hydroxide (Milk Of Magnesia 30 Ml Oral.Susp) 30 ml PO DAILY PRN PRN Reason: Constipation Melatonin (Melatonin 3 Mg Tablet) 6 mg PO BEDTIME PRN PRN Reason: Insomnia Melatonin (Melatonin 3 Mg Tablet) 3 mg PO BEDTIME [facility] Last Admin: 02/22/23 22:14 Dose: 3 mg Midodrine (Midodrine Hcl 5 Mg Tablet) 5 mg PO TID@0800,1200,1800 [facility] Last Admin: 02/22/23 16:59 Dose: 5 mg Multivitamins/Vitamin C (Multivitamin Tablet) 1 tab PO DAILY [facility] Last Admin: 02/22/23 08:49 Dose: 1 tab Omeprazole (Omeprazole 20 Mg Capsule.Dr) 20 mg PO DAILY@0630 [facility] Last Admin: 02/23/23 06:40 Dose: 20 mg Ondansetron HCl (Ondansetron Hcl 4 Mg/2 Ml Vial) 4 mg IVPUSH Q8H PRN PRN Reason: Nausea and Vomiting Pharmacy Consult (Consult Rx Vancomycin Dosing) 1 each MISCELLANE DAILY PRN PRN Reason: Consult order Potassium Chloride (Potassium Chloride Er 20 Meq Tab.Er.Prt) 20 meq PO DAILY@1300 [facility] Last Admin: 02/22/23 14:24 Dose: 20 meq Prednisone (Prednisone 5 Mg Tablet) 5 mg PO DAILY [facility] Last Admin: 02/22/23 08:49 Dose: 5 mg Risperidone (Risperidone 0.5 Mg Tablet) 0.5 mg PO BID [facility] Last Admin: 02/22/23 22:14 Dose: 0.5 mg Sertraline HCl (Sertraline Hcl 50 Mg Tablet) 50 mg PO DAILY@0800 [facility] Last Admin: 02/22/23 08:49 Dose: 50 mg Sertraline HCl (Sertraline Hcl 100 Mg Tablet) 100 mg PO DAILY@0800 [facility] Last Admin: 02/22/23 08:49 Dose: 100 mg Sodium Biphosphate/Sodium Phosphate (Sodium Phosphate,[place]-Dibasic 133 Ml Enema) 118 ml SD BEDTIME PRN PRN Reason: Constipation Sodium Chloride (0.9 % Sodium Chloride Flush 3 Ml Syringe) 3 ml IVFLUSH QSHIFT [facility] Last Admin: 02/22/23 23:26 Dose: 3 ml Home Medications Medication Instructions Recorded Confirmed Last Taken Type albuterol sulfate 90 mcg/actuation 2 puff inhalation Q4H PRN 07/16/21 02/21/23 Unknown History aerosol inhaler Shortness Of Breath atorvastatin 10 mg tablet 1 tab PO BEDTIME@199907/16/21 02/21/23 Unknown History cyanocobalamin (vitamin B-12) 500 mcg PO DAILY@0800 07/16/21 02/21/23 Unknown History 1,000 mcg capsule gabapentin 300 mg capsule 1 cap PO BID 07/16/21 02/21/23 Unknown History melatonin 3 mg tablet 3 mg PO BEDTIME 07/16/21 02/21/23 Unknown History multivitamin 1 tab PO DAILY 07/16/21 02/21/23 Unknown History omeprazole 20 mg capsule,delayed 1 cap PO DAILY@0630 07/16/21 02/21/23 Unknown History release prednisone 5 mg tablet 1 tab PO DAILY 07/16/21 02/21/23 Unknown History risperidone 0.5 mg tablet 0.5 mg PO BID 07/16/21 02/21/23 Unknown History (Risperdal) sertraline 100 mg tablet 1 tab PO DAILY@0800 07/16/21 02/21/23 Unknown History sertraline 50 mg tablet 1 tab PO DAILY@0800 07/16/21 02/21/23 Unknown History bisacodyl 10 mg rectal suppository 10 mg SD DAILY PRN Constipation 02/09/22 02/21/23 Unknown History sodium phosphates 19 gram-7 118 ml SD BEDTIME PRN Constipation 02/09/22 02/21/23 Unknown History gram/118 mL enema (Fleet Enema) acetaminophen 325 mg tablet 650 mg PO Q4H PRN Fever Or Pain 06/01/22 02/21/23 Unknown History albuterol sulfate 2.5 mg/3 mL 2.5 mg inhalation Q6H PRN Wheezing 06/01/22 02/21/23 Unknown History (0.083 %) solution for nebulization aspirin 81 mg tablet,delayed 81 mg PO DAILY 06/01/22 02/21/23 Unknown History release magnesium hydroxide 400 mg/5 mL 30 ml PO DAILY PRN Constipation 06/01/22 02/21/23 Unknown History oral suspension (Milk of Magnesia) midodrine 5 mg tablet 5 mg PO TID@0800,1200,1800 11/16/22 02/21/23 Unknown History peg [id number] 1 1 drp ophthalmic (eye) BID 11/16/22 02/21/23 Unknown History %-0.2 %-0.2 % eye drops (Artificial Tears ([id number])) cephalexin 500 mg capsule 500 mg PO QID 02/21/23 02/21/23 Unknown History guaifenesin 400 mg tablet 400 mg PO BID 02/21/23 02/21/23 Unknown History ipratropium bromide 0.02 % 2.5 ml inhalation Q6H PRN Wheezing 02/21/23 02/21/23 Unknown History solution for inhalation miconazole nitrate 2 % topical 1 appl topical BID 02/21/23 02/21/23 Unknown History cream potassium chloride 25 mEq oral 20 meq PO DAILY@1300 02/21/23 02/21/23 Unknown History packet Physical Exam 2 Vital Signs: Vital Signs: Last Vital Signs Temp 97.6 F 02/23/23 07:59 Pulse 78 02/23/23 07:59 Resp 12 02/23/23 07:59 BP 116/67 02/23/23 07:59 Pulse Ox 92 02/23/23 07:59 O2 Del Method Nasal Cannula 02/23/23 07:59 O2 Flow Rate 1 02/23/23 07:59 Oxygen Flow Rate 4 02/21/23 11:48 BMI result Body Mass Index 25.8 Const: General: no acute distress and confusion Nutritional Appearance: w ell nourished Orientation/consciousness: confusion Resp: Effort & Inspection: normal respiratory effort, no audible wheezes, no cough and no respiratory distress GI: Inspection: Yes normal to inspection Palpation (GI): Soft to palpation Skin: General skin exam: no rashes or lesions noted Neuro: General: confusion Extrem: Other: Right great toe with evidence of nail fungal infection. Toenail is black along the lateral surface. Nail is not ingrown however there is evidence of a paronychia along the lateral nail fold. This is open and draining appropriately. No undrained collections are identified. Results Labs 02/23/23 05:02 02/23/23 05:02 Labs: Abnormal lab results 02/22/23 02/22/23 02/23/23 Range/Units 10:02 20:52 05:02 WBC 12.0 H (4.8-10.8) X10*3/uL RBC 3.39 L 2.98 L (4.60-5.80) X10*6/uL Hgb 10.2 L 8.9 L (14.0-18.0) g/dl Hct 33.0 L 28.1 L (42.0-52.0) % MCHC 30.9 L (31.0-36.0) g/dl Potassium 2.9 L (3.3-5.1) mmol/L Chloride 109 H 109 H (96-108) mmol/L Anion Gap 10 L (12-20) Calcium 8.2 L D (8.4-10.2) mg/dL Random Vancomycin 20.1 H (15-20) mcg/mL Short CBC 02/22/23 02/23/23 Range/Units 10:02 05:02 WBC 12.0 H 7.8 (4.8-10.8) X10*3/uL Hgb 10.2 L 8.9 L (14.0-18.0) g/dl Hct 33.0 L 28.1 L (42.0-52.0) % Plt Count 252 245 (160-400) X10*3/uL BMP 02/22/23 02/23/23 10:02 05:02 Sodium 145 144 Potassium 3.4 2.9 L Chloride 109 H 109 H Carbon Dioxide 27 28 BUN 14 14 Creatinine 0.60 0.68 Calcium 8.8 8.2 L D All other labs normal. Assessment and Plan (1) Paronychia of great toe of right foot: Status: Acute Plan unfortunate 72-year-old male patient presenting with multiple medical problems found to have purulent discharge from the right great toe. On examination the patient has a draining paronychia along the lateral nail fold. No ingrown toenail segment is identified. Recommend soaking toe in warm water twice daily then drying completely. Dry sterile dressings should then be applied. No surgical intervention is required at this time. Procedures Date of Service Date of Service: 02/23/23
[2023-02-23] MEDS: Potassium Chloride Packet 20 MEQ PACKET 40 MEQ PO (09:30)
[2023-02-23] MEDS: Gabapentin 300 MG CAPSULE PO ×2 (09:30→20:33)
[2023-02-23] MEDS: Aspirin Enteric Coated 81 MG TABLET.DR PO (09:30)
[2023-02-23] MEDS: Sertraline HCL 50 MG TABLET PO (09:30)
[2023-02-23] MEDS: predniSONE 5 MG TABLET PO (09:31)
[2023-02-23] MEDS: Midodrine HCl 5 MG TABLET PO ×2 (09:31→17:29)
[2023-02-23] MEDS: risperiDONE 0.5 MG TABLET PO ×2 (09:31→20:33)
[2023-02-23] MEDS: Multivitamin TABLET 1 TAB PO (09:31)
[2023-02-23] MEDS: Cyanocobalamin (Vitamin B-12) 500 MCG TABLET PO (09:31)
[2023-02-23] MEDS: Sertraline HCL 100 MG TABLET PO (09:31)
[2023-02-23] MEDS: Furosemide 20 MG/2 ML VIAL IVPUSH ×2 (09:31→10:36)
[2023-02-23] MEDS: 0.9 % Sodium Chloride Flush 3 ML SYRINGE IVFLUSH ×3 (09:33→20:37)
[2023-02-23] MEDS: Artificial Tears 15 ML DROPS 1 DROP EYE-BOTH (10:27)
[2023-02-23] MEDS: vancomycin HCL 500 MG in 0.9 % Sodium Chloride 100 ML 110 MG IV (11:13)
--- NOTE | 2023-02-23 12:22 | HO.PM.IMPN ---
Subjective Subjective Date of Service: 02/23/23 Interval History: Seen and evaluated this morning alert, interactive sweetly confused Denies any fever or chills report pain at the abscess site Review of Systems Review of Systems: Yes all other systems are reviewed and are negative Physical Exam Vital Signs: Vital Signs: Last Vital Signs Temp 97.6 F 02/23/23 07:59 Pulse 78 02/23/23 07:59 Resp 12 02/23/23 07:59 BP 116/67 02/23/23 07:59 Pulse Ox 92 02/23/23 07:59 O2 Del Method Nasal Cannula 02/23/23 07:59 O2 Flow Rate 1 02/23/23 07:59 Oxygen Flow Rate 4 02/21/23 11:48 BMI result Body Mass Index 25.8 Const: Other: Constitutional : Awake, interactive, not in distress Neck : Normal inspection, Supple Cardiovascular : RRR, no JVP, +1 lower extremity edema Respiratory : good bilateral air entry, no crackles, wheezes or rhonchi Gastrointestinal: soft, lax, Normal bowel sounds, Non tender Skin : Warm, Dry, right buttock with dressing over the open wound, no drainage or erythema , right great toe swelling and erythema Neurological : Alert & disoriented x3, No focal deficit Objective Data Active Medications Acetaminophen (Acetaminophen 325 Mg Tablet) 650 mg PO Q6H PRN PRN Reason: Pain, Mild (Pain Scale 1-3) Albuterol Sulfate (Albuterol Sulfate (0.083%) 2.5 Mg/3 Ml Vial.Neb) 2.5 mg INHALE RQ6H PRN PRN Reason: Wheezing Albuterol Sulfate (Albuterol Sulfate 90 Mcg 8 Gm Inhaler) 2 puff INHALE RQ4H PRN PRN Reason: Shortness Of Breath Albuterol/Ipratropium (Albuterol/Iprat 2.5/0.5mg 3 Ml Ampul.Neb) 3 ml INHALE RQ6H WHILE AWAKE [facility] Last Admin: 02/23/23 08:38 Dose: Not Given Documented By: ELIE Non-Admin Reason: Patient Asleep Artificial Tears (Artificial Tears 15 Ml Drops) 1 drop EYE-BOTH BID [facility] Last Admin: 02/23/23 10:27 Dose: 1 drop Documented By: JOEY Aspirin (Aspirin Enteric Coated 81 Mg Tablet.Dr) 81 mg PO DAILY [facility] Last Admin: 02/23/23 09:30 Dose: 81 mg Documented By: JOEY Atorvastatin Calcium (Atorvastatin Calcium 10 Mg Tablet) 10 mg PO BEDTIME@2000 [facility] Last Admin: 02/22/23 22:15 Dose: 10 mg Documented By: ID Benzonatate (Benzonatate 100 Mg Capsule) 100 mg PO TID PRN PRN Reason: Cough Bisacodyl (Bisacodyl 10 Mg Supp.Rect) 10 mg DE DAILY PRN PRN Reason: Constipation Cyanocobalamin (Cyanocobalamin (Vitamin B-12) 500 Mcg Tablet) 500 mcg PO DAILY@0800 [facility] Last Admin: 02/23/23 09:31 Dose: 500 mcg Documented By: JOEY Docusate Sodium (Docusate Sodium 100 Mg Capsule) 100 mg PO DAILY PRN PRN Reason: Constipation Enoxaparin Sodium (Enoxaparin Sodium 40 Mg/0.4 Ml Syringe) 40 mg SUBCUT Q24H [facility] Last Admin: 02/22/23 16:58 Dose: 40 mg Documented By: LEONARDO Furosemide (Furosemide 20 Mg/2 Ml Vial) 20 mg IVPUSH DAILY [facility]; Protocol Last Admin: 02/23/23 09:31 Dose: 20 mg Documented By: JOEY Gabapentin (Gabapentin 300 Mg Capsule) 300 mg PO BID [facility] Last Admin: 02/23/23 09:30 Dose: 300 mg Documented By: JOEY Piperacillin Sod/Tazobactam (Sod 3.375 gm/ Sodium Chloride) 50 mls @ 100 mls/hr IV Q6H [facility] Last Infusion: 02/23/23 11:13 Dose: Infused Documented By: JOEY Vancomycin HCl 500 mg/ Sodium (Chloride) 110 mls @ 110 mls/hr IV Q12H [facility] Last Admin: 02/23/23 11:13 Dose: 110 mls/hr Documented By: JOEY Ipratropium [place] (Ipratropium [place] 0.5 Mg/2.5 Ml Solution) 0.5 mg INHALE RQ6H PRN PRN Reason: Wheezing Magnesium Hydroxide (Milk Of Magnesia 30 Ml Oral.Susp) 30 ml PO DAILY PRN PRN Reason: Constipation Melatonin (Melatonin 3 Mg Tablet) 6 mg PO BEDTIME PRN PRN Reason: Insomnia Melatonin (Melatonin 3 Mg Tablet) 3 mg PO BEDTIME [facility] Last Admin: 02/22/23 22:14 Dose: 3 mg Documented By: DI Midodrine (Midodrine Hcl 5 Mg Tablet) 5 mg PO TID@0800,1200,1800 [facility] Last Admin: 02/23/23 09:31 Dose: 5 mg Documented By: JOEY Multivitamins/Vitamin C (Multivitamin Tablet) 1 tab PO DAILY [facility] Last Admin: 02/23/23 09:31 Dose: 1 tab Documented By: JOEY Omeprazole (Omeprazole 20 Mg Capsule.) 20 mg PO DAILY@0630 [facility] Last Admin: 02/23/23 06:40 Dose: 20 mg Documented By: DI Ondansetron HCl (Ondansetron Hcl 4 Mg/2 Ml Vial) 4 mg IVPUSH Q8H PRN PRN Reason: Nausea and Vomiting Pharmacy Consult (Consult Rx Vancomycin Dosing) 1 each MISCELLANE DAILY PRN PRN Reason: Consult order Potassium Chloride (Potassium Chloride Er 20 Meq Tab.Er.Prt) 20 meq PO DAILY@1300 [facility] Last Admin: 02/22/23 14:24 Dose: 20 meq Documented By: LEONARDO Prednisone (Prednisone 5 Mg Tablet) 5 mg PO DAILY [facility] Last Admin: 02/23/23 09:31 Dose: 5 mg Documented By: JOEY Risperidone (Risperidone 0.5 Mg Tablet) 0.5 mg PO BID [facility] Last Admin: 02/23/23 09:31 Dose: 0.5 mg Documented By: JOEY Sertraline HCl (Sertraline Hcl 50 Mg Tablet) 50 mg PO DAILY@0800 [facility] Last Admin: 02/23/23 09:30 Dose: 50 mg Documented By: JOEY Sertraline HCl (Sertraline Hcl 100 Mg Tablet) 100 mg PO DAILY@0800 [facility] Last Admin: 02/23/23 09:31 Dose: 100 mg Documented By: JOEY Sodium Biphosphate/Sodium Phosphate (Sodium Phosphate,[place]-Dibasic 133 Ml Enema) 118 ml DE BEDTIME PRN PRN Reason: Constipation Sodium Chloride (0.9 % Sodium Chloride Flush 3 Ml Syringe) 3 ml IVFLUSH QSHIFT [facility] Last Admin: 02/23/23 09:33 Dose: 3 ml Documented By: JOEY Labs 02/23/23 05:02 02/23/23 05:02 Labs: Laboratory Results - last 24 hr 02/22/23 02/23/23 20:52 05:02 MCV 94.3 MCH 29.9 MCHC 31.7 RDW 14.0 Plt Count 245 MPV 10.8 Absolute Nucleated RBC 0.000 Nucleated RBC % (auto) 0.0 Anion Gap 10 L Estim Creat Clear Calc 114.1 Estimated GFR > 60 Random Glucose 97 Calcium 8.2 L D Random Vancomycin 20.1 H Microbiology Microbiology Results: Microbiology 02/21/23 12:21 Blood Culture - Preliminary Blood - Venous No growth after 24 hours. 02/21/23 12:10 Blood Culture - Preliminary Blood - Venous No growth after 24 hours. Assessment and Plan (1) Paronychia of great toe of right foot: Status: Acute (2) Compression fx, lumbar spine: Status: Acute (3) Cellulitis: Status: Acute (4) Abscess: Status: Acute Plan Pt is a 72-year-old male with a PMH significant for?dementia, myasthenia gravis chronically on prednisone 5mg, COPD chronically on 2-3L NC, CAD, and HLD who presents to the ED from SNF with?right buttock abscess that has failed outpatient therapy. Pt will be admitted to the hospital for treatment of sepsis in the setting right buttock abscess. Sepsis 2/2 Right buttock cellulitis and abscess abscess drained in the ED DC IVF Pending cultures Continue vanc and Zosyn, started 02/21/2023 Subacute L4 burst fracture No reported pain Ct of abd/pelvis found destructive lesion L4 vertebral body with displacement of anterior portion of the vertebral body and some mild posterior displacement indenting the thecal sac SNF denies recent hx of falls; pt non-ambulatory at baseline, uses Marky lift and wheelchair MRI of lumbar spine showing Subacute L4 burst fracture with significant vertebral body height loss/vertebra plana appearance of L4 and mild retrolisthesis of L4 on L5. There is moderate spinal canal stenosis at L3-L4 and L4-L5 related to retropulsion and degenerative changes. Discussed with neurosurgeon who recommended outpatient follow up for further work up Paronychia great toe Surgery input appreciated; soaking toe in warm water twice daily then drying completely. Dry sterile dressings should then be applied. Myasthenia gravis Continue home prednisone Presumed orthostatic hypotension Continue midodrine Mood disorder Continue home meds HLD Continue statin COPD Mild wheezing noted on exam Continue home inhalers DNR/DNI DVT Prophylaxis: Lovenox Pt will require a hospitalization of overnight for treatment of?sepsis in the setting of right buttock cellulitis and abscess. Quality Stroke Does the patient have a stroke diagnosis?: No VTE Prior VTE?: No VTE Risk Level:: Medical - moderate - high VTE Device Contraindication: Treatment Not Indicated VTE Drug Contraindication: N/A - Med Ordered
[2023-02-23] MEDS: Potassium Chloride ER 20 MEQ TAB.ER.PRT PO (14:41)
[2023-02-23 15:39] VITALS: BP 130/58; PULSE 98; RESP 15; TEMP 35.9; O2SAT 92
[2023-02-23 16:48] VITALS: PULSE 88; RESP 16; O2SAT 94
[2023-02-23] MEDS: Albuterol/Iprat 2.5/0.5MG 3 ML AMPUL.NEB INHALE ×2 (16:48→19:42)
[2023-02-23] MEDS: Enoxaparin Sodium 40 MG/0.4 ML SYRINGE SUBCUT (17:28)
[2023-02-23 19:19] VITALS: BP 120/56; PULSE 99; RESP 16; TEMP 35.2; O2SAT 93
[2023-02-23 19:43] VITALS: PULSE 99; RESP 16; O2SAT 93
[2023-02-23] MEDS: Atorvastatin Calcium 10 MG TABLET PO (20:33)
[2023-02-23] MEDS: Melatonin 3 MG TABLET PO (20:33)
[2023-02-23 21:38] LABS: Vancomycin Random 15.8 mcg/mL (15-20)
[2023-02-24] MEDS: vancomycin HCL 500 MG in 0.9 % Sodium Chloride 100 ML 110 MG IV (00:02)
[2023-02-24 04:00] VITALS: BP 111/73; PULSE 71; RESP 16; TEMP 36.5; O2SAT 92
[2023-02-24] MEDS: Piperacillin Sodium/Tazobactam 3.375 GM in 0.9 % Sodium Chloride 50 ML IV (04:12)
[2023-02-24 06:17] LABS: Creatinine Clr Calc Pharmacy 103.5; Estimated Glomerular Filt Rate > 60
[2023-02-24] MEDS: Omeprazole 20 MG CAPSULE.DR PO (06:24)
[2023-02-24 07:17] VITALS: BP 104/65; PULSE 88; RESP 16; TEMP 36; O2SAT 97
[2023-02-24] MEDS: Doxycycline Hyclate 100 MG in 0.9 % Sodium Chloride 250 ML 166.67 MG IV ×2 (07:56→19:20)
[2023-02-24] MEDS: Midodrine HCl 5 MG TABLET PO ×3 (08:04→17:50)
[2023-02-24] MEDS: 0.9 % Sodium Chloride Flush 3 ML SYRINGE IVFLUSH ×3 (08:04→21:37)
[2023-02-24] MEDS: Sertraline HCL 50 MG TABLET PO (08:05)
[2023-02-24] MEDS: Cyanocobalamin (Vitamin B-12) 500 MCG TABLET PO (08:05)
[2023-02-24] MEDS: Sertraline HCL 100 MG TABLET PO (08:05)
[2023-02-24] MEDS: Albuterol/Iprat 2.5/0.5MG 3 ML AMPUL.NEB INHALE ×2 (08:17→19:41)
[2023-02-24 08:19] VITALS: PULSE 88; RESP 16; O2SAT 97
[2023-02-24] MEDS: predniSONE 5 MG TABLET PO (09:23)
[2023-02-24] MEDS: Multivitamin TABLET 1 TAB PO (09:23)
[2023-02-24] MEDS: Aspirin Enteric Coated 81 MG TABLET.DR PO (09:23)
[2023-02-24] MEDS: risperiDONE 0.5 MG TABLET PO ×2 (09:23→21:37)
[2023-02-24] MEDS: Gabapentin 300 MG CAPSULE PO ×2 (09:23→21:37)
[2023-02-24] MEDS: Artificial Tears 15 ML DROPS 1 DROP EYE-BOTH ×2 (09:24→21:37)
[2023-02-24] MEDS: Furosemide 20 MG/2 ML VIAL IVPUSH ×2 (09:24→10:04)
[2023-02-24] MEDS: Ampicillin Sodium/Sulbactam Na 3 GM in 0.9 % Sodium Chloride 100 ML IV ×3 (09:59→21:37)
[2023-02-24] MEDS: Potassium Chloride Packet 20 MEQ PACKET 40 MEQ PO (10:04)
--- NOTE | 2023-02-24 11:15 | HO.PM.IMPN ---
Subjective Subjective Date of Service: 02/24/23 Interval History: Seen and evaluated this morning alert, interactive Denies any fever or chills +1LL Edema report pain at the abscess site Review of Systems Review of Systems: Yes all other systems are reviewed and are negative Physical Exam Vital Signs: Vital Signs: Last Vital Signs Temp 96.8 F 02/24/23 07:17 Pulse 88 02/24/23 08:19 Resp 16 02/24/23 08:19 BP 104/65 02/24/23 07:17 Pulse Ox 97 02/24/23 07:17 O2 Del Method Nasal Cannula 02/24/23 07:17 O2 Flow Rate 2 02/24/23 07:17 Oxygen Flow Rate 4 02/21/23 11:48 BMI result Body Mass Index 25.8 Const: Other: Constitutional : Awake, interactive, not in distress Neck : Normal inspection, Supple Cardiovascular : RRR, no JVP, +1 lower extremity edema Respiratory : good bilateral air entry, no crackles, wheezes or rhonchi Gastrointestinal: soft, lax, Normal bowel sounds, Non tender Skin : Warm, Dry, right buttock with dressing over the open wound, no drainage or erythema , right great toe swelling and erythema Neurological : Alert & disoriented x3, No focal deficit Objective Data Active Medications Acetaminophen (Acetaminophen 325 Mg Tablet) 650 mg PO Q6H PRN PRN Reason: Pain, Mild (Pain Scale 1-3) Albuterol Sulfate (Albuterol Sulfate (0.083%) 2.5 Mg/3 Ml Vial.Neb) 2.5 mg INHALE RQ6H PRN PRN Reason: Wheezing Albuterol Sulfate (Albuterol Sulfate 90 Mcg 8 Gm Inhaler) 2 puff INHALE RQ4H PRN PRN Reason: Shortness Of Breath Albuterol/Ipratropium (Albuterol/Iprat 2.5/0.5mg 3 Ml Ampul.Neb) 3 ml INHALE RQ6H WHILE AWAKE [facility] Last Admin: 02/24/23 08:17 Dose: 3 ml Documented By: NICK Artificial Tears (Artificial Tears 15 Ml Drops) 1 drop EYE-BOTH BID [facility] Last Admin: 02/24/23 09:24 Dose: 1 drop Documented By: JOEY Aspirin (Aspirin Enteric Coated 81 Mg Tablet.) 81 mg PO DAILY [facility] Last Admin: 02/24/23 09:23 Dose: 81 mg Documented By: JOEY Atorvastatin Calcium (Atorvastatin Calcium 10 Mg Tablet) 10 mg PO BEDTIME@2000 [facility] Last Admin: 02/23/23 20:33 Dose: 10 mg Documented By: DI Benzonatate (Benzonatate 100 Mg Capsule) 100 mg PO TID PRN PRN Reason: Cough Bisacodyl (Bisacodyl 10 Mg Supp.Rect) 10 mg DE DAILY PRN PRN Reason: Constipation Cyanocobalamin (Cyanocobalamin (Vitamin B-12) 500 Mcg Tablet) 500 mcg PO DAILY@0800 [facility] Last Admin: 02/24/23 08:05 Dose: 500 mcg Documented By: JOEY Docusate Sodium (Docusate Sodium 100 Mg Capsule) 100 mg PO DAILY PRN PRN Reason: Constipation Enoxaparin Sodium (Enoxaparin Sodium 40 Mg/0.4 Ml Syringe) 40 mg SUBCUT Q24H [facility] Last Admin: 02/23/23 17:28 Dose: 40 mg Documented By: JOEY Furosemide (Furosemide 20 Mg/2 Ml Vial) 20 mg IVPUSH DAILY [facility]; Protocol Last Admin: 02/24/23 09:24 Dose: 20 mg Documented By: JOEY Gabapentin (Gabapentin 300 Mg Capsule) 300 mg PO BID [facility] Last Admin: 02/24/23 09:23 Dose: 300 mg Documented By: JOEY Doxycycline Hyclate 100 mg/ (Sodium Chloride) 250 mls @ 166.67 mls/hr IV Q12H [facility] Last Infusion: 02/24/23 09:58 Dose: Infused Documented By: JOEY Ampicillin Sodium/Sulbactam (Sodium 3 gm/ Sodium Chloride) 100 mls @ 200 mls/hr IV Q6H [facility] Last Infusion: 02/24/23 10:56 Dose: Infused Documented By: JOEY Ipratropium [place] (Ipratropium [place] 0.5 Mg/2.5 Ml Solution) 0.5 mg INHALE RQ6H PRN PRN Reason: Wheezing Magnesium Hydroxide (Milk Of Magnesia 30 Ml Oral.Susp) 30 ml PO DAILY PRN PRN Reason: Constipation Melatonin (Melatonin 3 Mg Tablet) 6 mg PO BEDTIME PRN PRN Reason: Insomnia Melatonin (Melatonin 3 Mg Tablet) 3 mg PO BEDTIME [facility] Last Admin: 02/23/23 20:33 Dose: 3 mg Documented By: DI Midodrine (Midodrine Hcl 5 Mg Tablet) 5 mg PO TID@0800,1200,1800 [facility] Last Admin: 02/24/23 08:04 Dose: 5 mg Documented By: JOEY Multivitamins/Vitamin C (Multivitamin Tablet) 1 tab PO DAILY [facility] Last Admin: 02/24/23 09:23 Dose: 1 tab Documented By: JOEY Omeprazole (Omeprazole 20 Mg Capsule.Dr) 20 mg PO DAILY@0630 [facility] Last Admin: 02/24/23 06:24 Dose: 20 mg Documented By: TONI Ondansetron HCl (Ondansetron Hcl 4 Mg/2 Ml Vial) 4 mg IVPUSH Q8H PRN PRN Reason: Nausea and Vomiting Pharmacy Consult (Consult Rx Vancomycin Dosing) 1 each MISCELLANE DAILY PRN PRN Reason: Consult order Potassium Chloride (Potassium Chloride Er 20 Meq Tab.Er.Prt) 20 meq PO DAILY@1300 [facility] Last Admin: 02/23/23 14:41 Dose: 20 meq Documented By: JOEY Prednisone (Prednisone 5 Mg Tablet) 5 mg PO DAILY [facility] Last Admin: 02/24/23 09:23 Dose: 5 mg Documented By: JOEY Risperidone (Risperidone 0.5 Mg Tablet) 0.5 mg PO BID [facility] Last Admin: 02/24/23 09:23 Dose: 0.5 mg Documented By: JOEY Sertraline HCl (Sertraline Hcl 50 Mg Tablet) 50 mg PO DAILY@0800 [facility] Last Admin: 02/24/23 08:05 Dose: 50 mg Documented By: JOEY Sertraline HCl (Sertraline Hcl 100 Mg Tablet) 100 mg PO DAILY@0800 [facility] Last Admin: 02/24/23 08:05 Dose: 100 mg Documented By: JOEY Sodium Biphosphate/Sodium Phosphate (Sodium Phosphate,[place]-Dibasic 133 Ml Enema) 118 ml DE BEDTIME PRN PRN Reason: Constipation Sodium Chloride (0.9 % Sodium Chloride Flush 3 Ml Syringe) 3 ml IVFLUSH QSHIFT [facility] Last Admin: 02/24/23 08:04 Dose: 3 ml Documented By: JOEY Labs 02/23/23 05:02 02/24/23 05:41 Labs: Laboratory Results - last 24 hr 02/23/23 02/24/23 20:51 05:41 Hold Purple Top SEE NOTE Estim Creat Clear Calc 103.5 Estimated GFR > 60 Random Vancomycin 15.8 Microbiology Microbiology Results: Microbiology 02/21/23 12:21 Blood Culture - Preliminary Blood - Venous No growth after 48 hours. 02/21/23 12:10 Blood Culture - Preliminary Blood - Venous No growth after 48 hours. Assessment and Plan (1) Paronychia of great toe of right foot: Status: Acute (2) Compression fx, lumbar spine: Status: Acute (3) Abscess: Status: Acute Plan Pt is a 72-year-old male with a PMH significant for?dementia, myasthenia gravis chronically on prednisone 5mg, COPD chronically on 2-3L NC, CAD, and HLD who presents to the ED from SNF with?right buttock abscess that has failed outpatient therapy. Pt will be admitted to the hospital for treatment of sepsis in the setting right buttock abscess. Sepsis, resolved 2/2 Right buttock cellulitis and abscess abscess drained in the ED DC IVF Pending cultures DC vanc and Zosyn, started 02/21/2023 Start Doxy and Unasyn Subacute L4 burst fracture No reported pain Ct of abd/pelvis found destructive lesion L4 vertebral body with displacement of anterior portion of the vertebral body and some mild posterior displacement indenting the thecal sac SNF denies recent hx of falls; pt non-ambulatory at baseline, uses Marky lift and wheelchair MRI of lumbar spine showing Subacute L4 burst fracture with significant vertebral body height loss/vertebra plana appearance of L4 and mild retrolisthesis of L4 on L5. There is moderate spinal canal stenosis at L3-L4 and L4-L5 related to retropulsion and degenerative changes. Discussed with neurosurgeon who recommended outpatient follow up for further work up Paronychia great toe Surgery input appreciated; soaking toe in warm water twice daily then drying completely. Dry sterile dressings should then be applied. Myasthenia gravis Continue home prednisone Presumed orthostatic hypotension Continue midodrine Mood disorder Continue home meds HLD Continue statin COPD Mild wheezing noted on exam Continue home inhalers DNR/DNI DVT Prophylaxis: Lovenox Pt will require a hospitalization of overnight for treatment of?sepsis in the setting of right buttock cellulitis and abscess. Quality Stroke Does the patient have a stroke diagnosis?: No VTE Prior VTE?: No VTE Risk Level:: Medical - moderate - high VTE Device Contraindication: Treatment Not Indicated VTE Drug Contraindication: N/A - Med Ordered
[2023-02-24] MEDS: Acetaminophen 325 MG TABLET 650 MG PO (11:37)
[2023-02-24] MEDS: Potassium Chloride ER 20 MEQ TAB.ER.PRT PO (13:06)
[2023-02-24 15:53] VITALS: BP 111/59; PULSE 81; RESP 18; TEMP 36.6; O2SAT 97
[2023-02-24] MEDS: Enoxaparin Sodium 40 MG/0.4 ML SYRINGE SUBCUT (17:50)
--- NOTE | 2023-02-24 18:07 | P.CDIM_ITS ---
PROVIDER RESPONSE TEXT: To clarify, the appropriate diagnosis supported by the clinical indicators: Acute on chronic respiratory failure QUERY TEXT: PHYSICIAN'S DOCUMENTATION REQUEST Date of Query: 02/22/2023 12:42 PM EST Patient Name: Adolfo Rizzo Admit Date: 02/21/2023 Dear Tasneem Jones, A review of the medical record indicates additional documentation may be needed. Please review below and update the documentation accordingly. Respiratory failure was documented on (insert date). Clinical Indicators: H&P: COPD, chronically on 2-3 L NC RR 25/30 on 3 liters NC Chronic respiratory failure Acute on chronic respiratory failure O2 dependent Other (explain) Clinically unable to determine (explain) Thank you, [place], CCS, CDIS Use of terms such as suspected, likely, concern for, or probable (associated with a specific diagnosi s that is being evaluated, monitored, or treated as if it exists) are acceptable and can be coded in the inpatient se tting, when documented at the time of discharge. Please use your independent medical judgment in providing your response. THIS QUERY IS PART OF THE PERMANENT MEDICAL RECORD
[2023-02-24 19:30] VITALS: PULSE 67; RESP 17; O2SAT 97
[2023-02-24 20:00] VITALS: BP 109/69; PULSE 80; RESP 16; TEMP 36.4
[2023-02-24 21:31] LABS: Vancomycin Random 9.9 mcg/mL (15-20)
[2023-02-24] MEDS: Melatonin 3 MG TABLET PO (21:37)
[2023-02-24] MEDS: Atorvastatin Calcium 10 MG TABLET PO (21:37)
[2023-02-25] VITALS (8 sets, daily range): BP systolic 104–129; BP diastolic 64–70; PULSE 67–86; RESP 17–20; TEMP 36–36.3; O2SAT 89–96
[2023-02-25] MEDS: Ampicillin Sodium/Sulbactam Na 3 GM in 0.9 % Sodium Chloride 100 ML IV ×4 (02:54→21:01)
[2023-02-25] MEDS: Omeprazole 20 MG CAPSULE.DR PO (05:32)
[2023-02-25 06:27] LABS: Hematocrit 32.6 % (42.0-52.0); Hemoglobin 10.5 g/dl (14.0-18.0); Mean Corpuscular HGB Conc 32.2 g/dl (31.0-36.0); Mean Corpuscular Hemoglobin 31.2 pg (27.0-33.0); Mean Corpuscular Volume 96.7 fL (80.0-98.0); Mean Platelet Volume 10.7 fL (9.4-12.4); Platelet Count 328 X10*3/uL (160-400); Red Blood Count 3.37 X10*6/uL (4.60-5.80); Red Cell Distribution Width 13.9 % (11.0-16.0)
[2023-02-25 06:42] LABS: Anion Gap 12 (12-20); Blood Urea Nitrogen 13 mg/dL (9-16); Calcium 8.9 mg/dL (8.4-10.2); Carbon Dioxide 34 mmol/L (22-29); Chloride 104 mmol/L (96-108); Creatinine Clr Calc Pharmacy 104.9; Estimated Glomerular Filt Rate > 60; Glucose Random 92 mg/dL (60-115); Potassium 3.6 mmol/L (3.3-5.1); Sodium 146 mmol/L (135-145)
[2023-02-25] MEDS: Albuterol/Iprat 2.5/0.5MG 3 ML AMPUL.NEB INHALE ×3 (07:24→20:10)
[2023-02-25] MEDS: Dextrose 5 % 1,000 ML 150 ML IVCONT (08:40)
[2023-02-25] MEDS: 0.9 % Sodium Chloride Flush 3 ML SYRINGE IVFLUSH ×3 (08:41→20:07)
[2023-02-25] MEDS: Sertraline HCL 100 MG TABLET PO (08:48)
[2023-02-25] MEDS: Gabapentin 300 MG CAPSULE PO ×2 (08:48→20:07)
[2023-02-25] MEDS: predniSONE 5 MG TABLET PO (08:48)
[2023-02-25] MEDS: Cyanocobalamin (Vitamin B-12) 500 MCG TABLET PO (08:49)
[2023-02-25] MEDS: Multivitamin TABLET 1 TAB PO (08:49)
[2023-02-25] MEDS: Aspirin Enteric Coated 81 MG TABLET.DR PO (08:49)
[2023-02-25] MEDS: Midodrine HCl 5 MG TABLET PO ×3 (08:49→17:29)
[2023-02-25] MEDS: risperiDONE 0.5 MG TABLET PO ×2 (08:49→20:07)
[2023-02-25] MEDS: Acetaminophen 325 MG TABLET 650 MG PO (08:49)
[2023-02-25] MEDS: Sertraline HCL 50 MG TABLET PO (08:49)
[2023-02-25] MEDS: Doxycycline Hyclate 100 MG in 0.9 % Sodium Chloride 250 ML 166.67 MG IV ×2 (09:02→19:12)
[2023-02-25] MEDS: Artificial Tears 15 ML DROPS 1 DROP EYE-BOTH ×2 (09:09→21:01)
[2023-02-25 11:46] LABS: Anion Gap 9 (12-20); Blood Urea Nitrogen 13 mg/dL (9-16); Calcium 8.5 mg/dL (8.4-10.2); Carbon Dioxide 34 mmol/L (22-29); Chloride 105 mmol/L (96-108); Creatinine Clr Calc Pharmacy 112.5; Estimated Glomerular Filt Rate > 60; Glucose Random 115 mg/dL (60-115); Potassium 3.6 mmol/L (3.3-5.1); Sodium 144 mmol/L (135-145)
[2023-02-25] MEDS: Potassium Chloride ER 20 MEQ TAB.ER.PRT PO (12:44)
--- NOTE | 2023-02-25 12:54 | HO.PM.IMPN ---
Subjective Subjective Date of Service: 02/25/23 Interval History: Seen and evaluated this morning alert, interactive Denies any fever or chills mild Hypernatremia report no significant pain at the abscess site Review of Systems Review of Systems: Yes all other systems are reviewed and are negative Physical Exam Vital Signs: Vital Signs: Last Vital Signs Temp 97.2 F 02/25/23 07:32 Pulse 85 02/25/23 07:32 Resp 18 02/25/23 07:32 BP 115/70 02/25/23 07:32 Pulse Ox 96 02/25/23 07:32 O2 Del Method Nasal Cannula 02/25/23 07:32 O2 Flow Rate 2 02/25/23 07:32 Oxygen Flow Rate 4 02/21/23 11:48 BMI result Body Mass Index 25.8 Const: Other: Constitutional : Awake, interactive, not in distress Neck : Normal inspection, Supple Cardiovascular : RRR, no JVP, trace lower extremity edema Respiratory : good bilateral air entry, no crackles, wheezes or rhonchi Gastrointestinal: soft, lax, Normal bowel sounds, Non tender Skin : Warm, Dry, right buttock with dressing over the open wound, no drainage or erythema , right great toe swelling and erythema Neurological : Alert & disoriented x3, No focal deficit Objective Data Active Medications Acetaminophen (Acetaminophen 325 Mg Tablet) 650 mg PO Q6H PRN PRN Reason: Pain, Mild (Pain Scale 1-3) Last Admin: 02/25/23 08:49 Dose: 650 mg Documented By: JOEY Albuterol Sulfate (Albuterol Sulfate (0.083%) 2.5 Mg/3 Ml Vial.Neb) 2.5 mg INHALE RQ6H PRN PRN Reason: Wheezing Albuterol Sulfate (Albuterol Sulfate 90 Mcg 8 Gm Inhaler) 2 puff INHALE RQ4H PRN PRN Reason: Shortness Of Breath Albuterol/Ipratropium (Albuterol/Iprat 2.5/0.5mg 3 Ml Ampul.Neb) 3 ml INHALE RQ6H WHILE AWAKE [facility] Last Admin: 02/25/23 07:24 Dose: 3 ml Documented By: NESTOR Artificial Tears (Artificial Tears 15 Ml Drops) 1 drop EYE-BOTH BID [facility] Last Admin: 02/25/23 09:09 Dose: 1 drop Documented By: JOEY Aspirin (Aspirin Enteric Coated 81 Mg Tablet.) 81 mg PO DAILY [facility] Last Admin: 02/25/23 08:49 Dose: 81 mg Documented By: JOEY Atorvastatin Calcium (Atorvastatin Calcium 10 Mg Tablet) 10 mg PO BEDTIME@2000 [facility] Last Admin: 02/24/23 21:37 Dose: 10 mg Documented By: RIRI Benzonatate (Benzonatate 100 Mg Capsule) 100 mg PO TID PRN PRN Reason: Cough Bisacodyl (Bisacodyl 10 Mg Supp.Rect) 10 mg UT DAILY PRN PRN Reason: Constipation Cyanocobalamin (Cyanocobalamin (Vitamin B-12) 500 Mcg Tablet) 500 mcg PO DAILY@0800 [facility] Last Admin: 02/25/23 08:49 Dose: 500 mcg Documented By: JOEY Docusate Sodium (Docusate Sodium 100 Mg Capsule) 100 mg PO DAILY PRN PRN Reason: Constipation Enoxaparin Sodium (Enoxaparin Sodium 40 Mg/0.4 Ml Syringe) 40 mg SUBCUT Q24H [facility] Last Admin: 02/24/23 17:50 Dose: 40 mg Documented By: JOEY Gabapentin (Gabapentin 300 Mg Capsule) 300 mg PO BID [facility] Last Admin: 02/25/23 08:48 Dose: 300 mg Documented By: JOEY Doxycycline Hyclate 100 mg/ (Sodium Chloride) 250 mls @ 166.67 mls/hr IV Q12H [facility] Last Infusion: 02/25/23 10:37 Dose: Infused Documented By: JOEY Ampicillin Sodium/Sulbactam (Sodium 3 gm/ Sodium Chloride) 100 mls @ 200 mls/hr IV Q6H [facility] Last Infusion: 02/25/23 11:36 Dose: Infused Documented By: JOEY Dextrose (D5w) 1,000 mls @ 150 mls/hr IVCONT .Q6H40M [facility] Last Infusion: 02/25/23 11:36 Dose: 150 mls/hr Documented By: JOEY Ipratropium [place] (Ipratropium [place] 0.5 Mg/2.5 Ml Solution) 0.5 mg INHALE RQ6H PRN PRN Reason: Wheezing Magnesium Hydroxide (Milk Of Magnesia 30 Ml Oral.Susp) 30 ml PO DAILY PRN PRN Reason: Constipation Melatonin (Melatonin 3 Mg Tablet) 6 mg PO BEDTIME PRN PRN Reason: Insomnia Melatonin (Melatonin 3 Mg Tablet) 3 mg PO BEDTIME [facility] Last Admin: 02/24/23 21:37 Dose: 3 mg Documented By: RIRI Midodrine (Midodrine Hcl 5 Mg Tablet) 5 mg PO TID@0800,1200,1800 [facility] Last Admin: 02/25/23 12:44 Dose: 5 mg Documented By: JOEY Multivitamins/Vitamin C (Multivitamin Tablet) 1 tab PO DAILY [facility] Last Admin: 02/25/23 08:49 Dose: 1 tab Documented By: JOEY Omeprazole (Omeprazole 20 Mg Capsule.) 20 mg PO DAILY@0630 [facility] Last Admin: 02/25/23 05:32 Dose: 20 mg Documented By: RIRI Ondansetron HCl (Ondansetron Hcl 4 Mg/2 Ml Vial) 4 mg IVPUSH Q8H PRN PRN Reason: Nausea and Vomiting Pharmacy Consult (Consult Rx Vancomycin Dosing) 1 each MISCELLANE DAILY PRN PRN Reason: Consult order Potassium Chloride (Potassium Chloride Er 20 Meq Tab.Er.Prt) 20 meq PO DAILY@1300 [facility] Last Admin: 02/25/23 12:44 Dose: 20 meq Documented By: JOEY Prednisone (Prednisone 5 Mg Tablet) 5 mg PO DAILY [facility] Last Admin: 02/25/23 08:48 Dose: 5 mg Documented By: JOEY Risperidone (Risperidone 0.5 Mg Tablet) 0.5 mg PO BID [facility] Last Admin: 02/25/23 08:49 Dose: 0.5 mg Documented By: JOEY Sertraline HCl (Sertraline Hcl 50 Mg Tablet) 50 mg PO DAILY@0800 [facility] Last Admin: 02/25/23 08:49 Dose: 50 mg Documented By: JOEY Sertraline HCl (Sertraline Hcl 100 Mg Tablet) 100 mg PO DAILY@0800 [facility] Last Admin: 02/25/23 08:48 Dose: 100 mg Documented By: JOEY Sodium Biphosphate/Sodium Phosphate (Sodium Phosphate,[place]-Dibasic 133 Ml Enema) 118 ml UT BEDTIME PRN PRN Reason: Constipation Sodium Chloride (0.9 % Sodium Chloride Flush 3 Ml Syringe) 3 ml IVFLUSH QSHIFT [facility] Last Admin: 12/04/23 08:41 Dose: 3 ml Documented By: JOEY Labs 02/25/23 05:58 02/25/23 11:27 Labs: Laboratory Results - last 24 hr 02/24/23 02/25/23 02/25/23 21:00 05:58 11:27 MCV 96.7 MCH 31.2 MCHC 32.2 RDW 13.9 Plt Count 328 D MPV 10.7 Absolute Nucleated RBC 0.000 Nucleated RBC % (auto) 0.0 Anion Gap 12 9 L Estim Creat Clear Calc 104.9 112.5 Estimated GFR > 60 > 60 Random Glucose 92 115 Calcium 8.9 D 8.5 Random Vancomycin 9.9 L Assessment and Plan (1) Acute hypernatremia: Status: Acute (2) Paronychia of great toe of right foot: Status: Acute (3) Compression fx, lumbar spine: Status: Acute (4) Cellulitis: Status: Acute (5) Abscess: Status: Acute Plan Pt is a 72-year-old male with a PMH significant for?dementia, myasthenia gravis chronically on prednisone 5mg, COPD chronically on 2-3L NC, CAD, and HLD who presents to the ED from SNF with?right buttock abscess that has failed outpatient therapy. Pt will be admitted to the hospital for treatment of sepsis in the setting right buttock abscess. Sepsis, resolved 2/2 Right buttock cellulitis and abscess abscess drained in the ED DC IVF Negative cultures DC vanc and Zosyn, started 02/21/2023 Continue Doxy and Unasyn Acute hypernatremia 2/2 decrease PO intake and Lasix D5W for now, recheck BMP encourage PO intake Subacute L4 burst fracture No reported pain Ct of abd/pelvis found destructive lesion L4 vertebral body with displacement of anterior portion of the vertebral body and some mild posterior displacement indenting the thecal sac SNF denies recent hx of falls; pt non-ambulatory at baseline, uses Marky lift and wheelchair MRI of lumbar spine showing Subacute L4 burst fracture with significant vertebral body height loss/vertebra plana appearance of L4 and mild retrolisthesis of L4 on L5. There is moderate spinal canal stenosis at L3-L4 and L4-L5 related to retropulsion and degenerative changes. Discussed with neurosurgeon who recommended outpatient follow up for further work up Paronychia great toe Surgery input appreciated; soaking toe in warm water twice daily then drying completely. Dry sterile dressings should then be applied. Myasthenia gravis Continue home prednisone Presumed orthostatic hypotension Continue midodrine Mood disorder Continue home meds HLD Continue statin COPD Mild wheezing noted on exam Continue home inhalers DNR/DNI DVT Prophylaxis: Lovenox Pt will require a hospitalization of overnight for treatment of?sepsis in the setting of right buttock cellulitis and abscess. Quality Stroke Does the patient have a stroke diagnosis?: No VTE Prior VTE?: No VTE Risk Level:: Medical - moderate - high VTE Device Contraindication: Treatment Not Indicated VTE Drug Contraindication: N/A - Med Ordered
--- NOTE | 2023-02-25 15:47 | MHC.CM.PN ---
pt ready for dc awaiting auth from ins plan return to [facility]
[2023-02-25] MEDS: Enoxaparin Sodium 40 MG/0.4 ML SYRINGE SUBCUT (17:29)
[2023-02-25] MEDS: Melatonin 3 MG TABLET PO (20:07)
[2023-02-25] MEDS: Atorvastatin Calcium 10 MG TABLET PO (20:07)
[2023-02-26 02:35] VITALS: BP 110/65; PULSE 91; RESP 17; TEMP 36.2; O2SAT 95
[2023-02-26] MEDS: Ampicillin Sodium/Sulbactam Na 3 GM in 0.9 % Sodium Chloride 100 ML IV ×2 (02:38→10:20)
[2023-02-26] MEDS: Omeprazole 20 MG CAPSULE.DR PO (05:23)
[2023-02-26 06:04] LABS: Creatinine Clr Calc Pharmacy 115.8; Estimated Glomerular Filt Rate > 60
[2023-02-26 07:31] VITALS: BP 112/76; PULSE 74; RESP 18; TEMP 36.2; O2SAT 92
[2023-02-26] MEDS: Albuterol/Iprat 2.5/0.5MG 3 ML AMPUL.NEB INHALE ×2 (07:37→14:36)
[2023-02-26 07:39] VITALS: PULSE 70; RESP 18; O2SAT 97
[2023-02-26] MEDS: Doxycycline Hyclate 100 MG in 0.9 % Sodium Chloride 250 ML 166.67 MG IV (08:45)
[2023-02-26] MEDS: 0.9 % Sodium Chloride Flush 3 ML SYRINGE IVFLUSH (09:07)
[2023-02-26] MEDS: Multivitamin TABLET 1 TAB PO (09:08)
[2023-02-26] MEDS: Sertraline HCL 100 MG TABLET PO (09:08)
[2023-02-26] MEDS: Midodrine HCl 5 MG TABLET PO ×2 (09:08→11:59)
[2023-02-26] MEDS: Cyanocobalamin (Vitamin B-12) 500 MCG TABLET PO (09:08)
[2023-02-26] MEDS: Aspirin Enteric Coated 81 MG TABLET.DR PO (09:08)
[2023-02-26] MEDS: Gabapentin 300 MG CAPSULE PO (09:08)
[2023-02-26] MEDS: predniSONE 5 MG TABLET PO (09:08)
[2023-02-26] MEDS: Sertraline HCL 50 MG TABLET PO (09:08)
[2023-02-26] MEDS: risperiDONE 0.5 MG TABLET PO (09:08)
[2023-02-26] MEDS: Artificial Tears 15 ML DROPS 1 DROP EYE-BOTH (10:20)
--- NOTE | 2023-02-26 10:25 | MHC.CM.PN ---
pt tanya henao notified of rohit tovar [phone]
--- NOTE | 2023-02-26 11:56 | PM.DS ---
DS: Providers Provider Date of Service: 02/26/23 Date of admission: 02/21/23 17:46 Primary care physician: Unknown Physician Consults: 02/22/23 10:56 Consult to General Surgery Routine Consulting Provider: [facility] [place] General Surgeons Reason for consultation: Right great toe inflammation w ingrown nail 02/22/23 11:08 Consult to Wound Care Routine Reason for consultation: Right buttocks and Right great toe DS: Diagnosis Discharge Diagnosis (1) Acute hypernatremia: Status: Acute (2) Paronychia of great toe of right foot: Status: Acute (3) Compression fx, lumbar spine: Status: Acute (4) Cellulitis: Status: Acute (5) Abscess: Status: Acute (6) Lactic acidosis: Status: Acute (7) Sepsis: Status: Acute DS: Summary Hospital Course Hospital Course: Admission note HPI Pt is a 72-year-old male with a PMH significant for?dementia, myasthenia gravis chronically on prednisone 5mg, COPD chronically on 2-3L NC, CAD, and HLD who presents to the ED from SNF with?right buttock abscess that has failed outpatient therapy. Patient has advanced dementia at baseline, alert and oriented to self only and thus incapable of providing accurate HPI which is instead obtained from chart and provider review. However, patient has no acute medical complaints at this time. And states he feels ?fine?. Does know that he has had a hospital, but has no idea why he is here. At SNF was started on Keflex 3 days prior but with poor response to oral abx. Presents to ED today d/t increased pain and fever. In the ED pt was febrile up to 100.9, tachycardic up to 100, tachypneic up to 30, with soft BP of 99/58, satting at 92% on 4 L NC. Labs were significant for leukocytosis of 14.2, otherwise grossly unremarkable. Stable normocytic anemia of 10.0/31.2. Electrolytes WNL. Renal function baseline. Lactic acid WNL at 1.0. Initial troponin 3.7. CT?of abdomen and pelvis found right buttock abscess as well as a destructive lesions L4 vertebral body with displacement of the anterior portion of the vertebral body and some mild posterior displacement indenting the thecal sac. Pt had abscess drained in the ED and was treated with IVF, acetaminophen vancomycin, Zosyn, and received stress-dosed steroids. Pt will be admitted to the hospital for treatment of sepsis in the setting right buttock abscess. Hospital course # Sepsis, resolved 2/2 Right buttock cellulitis and abscess abscess drained in the ED and followed during hospital stay with good improvement as Negative blood cultures. Treated with IV vancomycin and Zosyn. will be discharged on Doxycycline and Augmentin. # Acute hypernatremia secondary to decrease PO intake and Lasix . resolved with IV fluids. encourage PO intake. # Subacute L4 burst fracture No reported pain Ct of abd/pelvis found destructive lesion L4 vertebral body with displacement of anterior portion of the vertebral body and some mild posterior displacement indenting the thecal sac SNF denies recent hx of falls; pt non-ambulatory at baseline, uses Marky lift and wheelchair MRI of lumbar spine showing Subacute L4 burst fracture with significant vertebral body height loss/vertebra plana appearance of L4 and mild retrolisthesis of L4 on L5. There is moderate spinal canal stenosis at L3-L4 and L4-L5 related to retropulsion and degenerative changes. Discussed with neurosurgeon who recommended outpatient follow up for further work up # Paronychia great toe Surgery input appreciated; soaking toe in warm water twice daily then drying completely. Dry sterile dressings should then be applied. Treated for sepsis from abscess with good recovery. Continue Augmentin and Doxycycline as prescribed Time Attestation Discharge coordination time: Greater than 30 minutes Quality: Safe Use of Opioids Does Pt have an Active Cancer Diagnosis on the Problem List?: No Quality: Stroke Does the patient have a stroke diagnosis?: No Physical Exam Vital Signs: Vital Signs: Last Vital Signs Temp 97.1 F 02/26/23 07:31 Pulse 70 02/26/23 07:39 Resp 18 02/26/23 07:39 BP 112/76 02/26/23 07:31 Pulse Ox 92 02/26/23 07:31 O2 Del Method Nasal Cannula 02/26/23 07:31 O2 Flow Rate 3 02/26/23 07:31 Oxygen Flow Rate 4 02/21/23 11:48 BMI result Body Mass Index 25.8 Const: Other: Constitutional : Awake, interactive, not in distress Neck : Normal inspection, Supple Cardiovascular : RRR, no JVP, trace lower extremity edema Respiratory : good bilateral air entry, no crackles, wheezes or rhonchi Gastrointestinal: soft, lax, Normal bowel sounds, Non tender Skin : Warm, Dry, right buttock with dressing over the open wound, no drainage or erythema , right great toe mild swelling and erythema with no drainage Neurological : Alert & aware of self but otherwise disoriented, resting tremors No focal deficit DS: Data Data Completed and Pending Completed studies during hospitalization [Text1]: Procedures Insertion of Infusion Device into Right Basilic Vein, Percutaneous Approach (11/16/22) Insertion of Infusion Device into Right Brachial Vein, Percutaneous Approach (06/01/22) Labs on day of discharge: Laboratory Results - last 24 hr 02/26/23 05:03 Creatinine 0.67 Estim Creat Clear Calc 115.8 Estimated GFR > 60 Preliminary micro results at discharge 02/21/23 12:21 Blood Culture - Preliminary Blood - Venous No growth after 48 hours. 02/21/23 12:10 Blood Culture - Preliminary Blood - Venous No growth after 48 hours. Imaging Chest x-ray: Radiologist's impression: ITS Impressions Abdomen/Pelvis CT 02/21/23 14:47 IMPRESSION: 1. Right buttock abscess as described above. 2. Destructive lesion L4 vertebral body with displacement of the anterior portion of the vertebral body and some mild posterior displacement indenting the thecal sac. Differential diagnosis as described above. Lumbar spine MRI is recommended for further evaluation. 3. Other incidental findings as described above including hepatic steatosis, cholelithiasis, mild splenomegaly, bilateral nonobstructing renal calculi and a large stool ball in the rectum without obstruction. Fleischner guidelines were followed. Orbit X-Ray 02/22/23 12:41 FINDINGS/IMPRESSION: There is no radiopaque foreign body seen in the orbits or the skull. There is a punctate 2 mm radiopaque density seen along the lateral cheek. Patient can be imaged by MRI. The paranasal sinuses are well-aerated. No gross bony abnormality seen. Results were conveyed verbally by phone to the fuel verification technician at 12:51 PM Lumbar Spine MRI 02/22/23 14:00 IMPRESSION: -Subacute L4 burst fracture with significant vertebral body height loss/vertebra plana appearance of L4 and mild retrolisthesis of L4 on L5. There is moderate spinal canal stenosis at L3-L4 and L4-L5 related to retropulsion and degenerative changes. -Subacute to chronic L1 burst fracture with 20% vertebral body height loss. -Heterogeneous bone marrow signal and enhancement involving the partially imaged posterior iliac bones which is nonspecific. No other site of abnormal bone marrow enhancement. -Multilevel degenerative changes of the lumbar spine as described above. Neural foraminal narrowing is worst and severe on the right at L4-L5 with mass effect on the exiting right L4 nerve root. Discharge Plan Discharge Anticipated Discharge Date/Time: 02/23/23 12:21 Patient Disposition: [facility] Discharge Diagnosis: Sepsis 2/2 Abscess Referrals: el [Other] - 1 Week Physician,Unknown J [Primary Care Provider] - 1 Week Discharge Medications: New amoxicillin-pot clavulanate 875-125 mg tablet 1 tab PO BID Qty: 14 0RF doxycycline monohydrate 100 mg capsule 100 mg PO BID Qty: 14 0RF Continued bisacodyl 10 mg Suppository 10 mg KY DAILY PRN (Reason: Constipation) Rx Instructions: if milk of magnesia not effective Fleet Enema 19-7 gram/118 mL Enema 118 ml KY BEDTIME PRN (Reason: Constipation) Rx Instructions: when dulcolax suppository not effective albuterol sulfate 2.5 mg /3 mL (0.083 %) Solution For Nebulization 2.5 mg INHALATION Q6H PRN (Reason: Wheezing) aspirin 81 mg Tablet,Delayed Release (Dr/Ec) 81 mg PO DAILY acetaminophen 325 mg Tablet 650 mg PO Q4H PRN (Reason: Fever Or Pain) magnesium hydroxide [Milk of Magnesia] 400 mg/5 mL Suspension 30 ml PO DAILY PRN (Reason: Constipation) Rx Instructions: for no bm in 3 days atorvastatin 10 mg tablet 1 tab PO BEDTIME@2000 sertraline 100 mg tablet 1 tab PO DAILY@0800 Rx Instructions: take with 50 mg for 150 mg total dose prednisone 5 mg tablet 1 tab PO DAILY Hold Instructions: Until you finish Dexamethasone gabapentin 300 mg capsule 1 cap PO BID omeprazole 20 mg capsule,delayed release(DR/EC) 1 cap PO DAILY@0630 sertraline 50 mg tablet 1 tab PO DAILY@0800 Rx Instructions: take with 100 mg for total dose of 150 mg multivitamin Tablet 1 tab PO DAILY melatonin 3 mg Tablet 3 mg PO BEDTIME albuterol sulfate 90 mcg/actuation Hfa Aerosol Inhaler 2 puff INHALATION Q4H PRN (Reason: Shortness Of Breath) risperidone [Risperdal] 0.5 mg Tablet 0.5 mg PO BID cyanocobalamin (vitamin B-12) 1,000 mcg Capsule 500 mcg PO DAILY@0800 Artificial Tears([id number]) 1-0.2-0.2 % Drops 1 drp OPHTHALMIC (EYE) BID midodrine 5 mg Tablet 5 mg PO TID@0800,1200,1800 Rx Instructions: do not give last dose of day after 6PM or within 4 hrs of bedtime miconazole nitrate 2 % Cream 1 appl TOPICAL BID potassium chloride 25 mEq Packet 20 meq PO DAILY@1300 ipratropium bromide 0.02 % Solution 2.5 ml INHALATION Q6H PRN (Reason: Wheezing) guaifenesin 400 mg Tablet 400 mg PO BID Discontinued cephalexin 500 mg capsule 500 mg PO QID Discharge Orders: Discharge Order (Routine); Ordered 02/26/23 Ordered By: Tasneem Jones Diet: Advance to usual diet Activity on Discharge: As tolerated Stand Alone Forms: Patient Portal Discharge page Care Plan Goals: Read below Health Concerns: Read below Plan of Treatment: Read below Assessment: Treated for sepsis from abscess with good recovery. Continue Augmentin and Doxycycline as prescribed.
[2023-02-26] MEDS: Potassium Chloride ER 20 MEQ TAB.ER.PRT PO (11:59)
[2023-02-26] MEDS: Furosemide 20 MG/2 ML VIAL IVPUSH (12:34)
[2023-02-26 14:37] VITALS: PULSE 77; RESP 18; O2SAT 98
--- NOTE | 2023-02-26 15:14 | P.CDIM_ITS ---
PROVIDER RESPONSE TEXT: To clarify, the appropriate diagnosis supported by the clinical indicators: Hypokalemia QUERY TEXT: PHYSICIAN'S DOCUMENTATION REQUEST Date of Query: 02/26/2023 09:30 AM EST Patient Name: Adolfo Rizzo Admit Date: 02/21/2023 Dear Tasneem Jones, A review of the medical record indicates additional documentation may be needed. Please review below and update the documentation accordingly. Clinical Indicators: LAB FINDINGS: potassium 2.9 L Klor-Con Based on the above, could you clarify if there is a diagnosis that correlates with these lab findings : Hypokalemia Labs indicate a diagnosis of (please specify) Other (explain) Clinically unable to determine (explain) Thank you, [place], CCS, CDIS Use of terms such as suspected, likely, concern for, or probable (associated with a specific diagnosi s that is being evaluated, monitored, or treated as if it exists) are acceptable and can be coded in the inpatient se tting, when documented at the time of discharge. Please use your independent medical judgment in providing your response. THIS QUERY IS PART OF THE PERMANENT MEDICAL RECORD
== END 2023-02-26 16:12 | disposition skilled nursing facility (03) | DRG 871 ==
LOC: HO.ED 15:31 → HO.EDOVER 17:54 → HO.S3 02-22 06:16
PROVIDERS: Admitting Provider Student in an Organized Health Care Education/Training Program; Emergency Provider Emergency Medicine; PCP Emergency Medicine; Visit Provider Student in an Organized Health Care Education/Training Program
DX: A41.9 Sepsis, unspecified organism (principal); J96.20 Acute and chronic respiratory failure, unspecified whether with hypoxia or hypercapnia; L02.31 Cutaneous abscess of buttock; L03.317 Cellulitis of buttock; S32.041A Stable burst fracture of fourth lumbar vertebra, initial encounter for closed fracture; E87.0 Hyperosmolality and hypernatremia; J44.9 Chronic obstructive pulmonary disease, unspecified; G70.00 Myasthenia gravis without (acute) exacerbation; F39 Unspecified mood [affective] disorder; L03.031 Cellulitis of right toe; Z66 Do not resuscitate; X58.XXXA Exposure to other specified factors, initial encounter; Z99.81 Dependence on supplemental oxygen; E87.6 Hypokalemia; I25.10 Atherosclerotic heart disease of native coronary artery without angina pectoris; I95.1 Orthostatic hypotension; F03.90 Unspecified dementia, unspecified severity, without behavioral disturbance, psychotic disturbance, mood disturbance, and anxiety; Z20.822 Contact with and (suspected) exposure to COVID-19; Z79.82 Long term (current) use of aspirin; Z79.52 Long term (current) use of systemic steroids; Z79.899 Other long term (current) drug therapy
CPT/HCPCS: 0241U; 36415; 72158; 74176; 80048; 80202; 82565; 83605; 84484; 85025; 85027; 87040; 94640; 97161; 99285; A9585; J0295; J1650; J1720; J1940; J2543; J3370; J7120

== ENCOUNTER → 2023-02-21 17:46 | Outpatient (BNV) | payer MEDICARE, SELFPAY | PROVIDERS: Admitting Provider Student in an Organized Health Care Education/Training Program; Emergency Provider Emergency Medicine; Visit Provider Surgery | DX: L03.031 Cellulitis of right toe (principal) | CPT/HCPCS: 99222 ==

== ENCOUNTER → 2023-02-21 17:46 | Outpatient (BNV) | payer MEDICARE, SELFPAY | PROVIDERS: Admitting Provider Student in an Organized Health Care Education/Training Program; Emergency Provider Emergency Medicine; Visit Provider Student in an Organized Health Care Education/Training Program | DX: A41.9 Sepsis, unspecified organism (principal); E87.0 Hyperosmolality and hypernatremia; L03.031 Cellulitis of right toe; S32.040S Wedge compression fracture of fourth lumbar vertebra, sequela; L03.317 Cellulitis of buttock; L02.91 Cutaneous abscess, unspecified; E87.20 Acidosis, unspecified | CPT/HCPCS: 99223; 99232; 99233; 99239 ==

== ENCOUNTER 2024-03-21 08:54 | Inpatient (IN) | payer MEDICARE, MEDICAID, SELFPAY ==
--- NOTE | ~2024-03-21 | CT_ITS ---
CLINICAL HISTORY: urinary retention CT abdomen and pelvis without contrast Comparison: CT of the abdomen and pelvis from 02/21/2023. Findings: Mild bibasilar atelectasis and scarring. Overall improved aeration of both lung bases. Redemonstration bilateral nephrolithiasis. Mild dilatation of both ureters nonspecific. No significant hydronephrosis. Index stone in right renal pelvis measures 1 cm. Additional bilateral nephrolithiasis measuring up to 1 cm. Mild perinephric stranding. Cholelithiasis in the distended gallbladder. Pancreas, spleen, and adrenal glands are unremarkable. Mild fat deposition noted in the liver adjacent to falciform ligament. Small mesenteric lymph nodes are likely reactive. No small bowel obstruction. Moderate stool burden. Fluid and inflammatory stranding in the pelvis is predominately about the bladder concerning for cystitis given wall thickening of the urinary bladder. One stone in the urinary bladder adjacent to the Arroyo catheter measures 0.5 cm. Calcifications also noted in the prostate gland and vascular calcifications including arterial calcifications and phleboliths in the pelvis. Lucency of the proximal right femur from previous instrumentation and/or hardware. Yetbnltu-xk-cmies effusion of the right hip. Degenerative changes include osteoarthritis of both hips. Comminuted compression fracture with yeavetwi-fp-xobifg height loss of the L4 is not significantly changed from comparison. Again there is mild retropulsion. Mild increase in spinal stenosis includes moderate to severe right L4-L5 foraminal narrowing accentuated by degenerative changes. No significant change in mild height loss of the L1 old compression fracture. Minimal right gluteal lesion may reflect scar. IMPRESSION: 1. Bilateral nephrolithiasis with 1 cm stone in right renal pelvis. 2. Wall thickening of the urinary bladder is concerning for cystitis given adjacent fluid and stranding. 0.5 cm stone within the urinary bladder is adjacent to the Arroyo catheter. 3. Cholelithiasis by CT. 4. Known and old L4 compression fracture. This document has been electronically signed by: Danny Ruvalcaba MD on 03/21/2024 22:37:33
[2024-03-21 08:57] VITALS: BP 110/72; PULSE 104; O2SAT 93
[2024-03-21 09:19] VITALS: BP 117/86; PULSE 99; RESP 16; TEMP 36.8; O2SAT 94; BMI 21.9
--- NOTE | 2024-03-21 09:31 | ED.GENADULT ---
HPI - General Adult General Chief complaint: Urogenital-Male Stated complaint: BLOOD IN F/C,SCROTUM SWELLING/REDNESS FROM SNF Time Seen by Provider: 03/21/24 09:18 Source: patient and EMS Mode of arrival: EMS Limitations: no limitations History of Present Illness ED Provider: DR. Owen HPI narrative: 73-year-old male was brought in by ambulance from long-term for evaluation of hematuria and malfunctioning Arroyo catheter. Patient is complaining of suprapubic pressure bladder scan reveals bladder distention with about 500 cc of urine. PMH significant for dementia, myasthenia gravis, COPD, CAD, HLD. Patient lives at the long-term. Related Data Home Medications ?Medication ?Instructions ?Recorded ?Confirmed albuterol sulfate 90 mcg/actuation 2 puff inhalation Q4H PRN 07/16/21 02/21/23 aerosol inhaler Shortness Of Breath atorvastatin 10 mg tablet 1 tab PO BEDTIME@199907/16/21 02/21/23 cyanocobalamin (vitamin B-12) 500 mcg PO DAILY@0800 07/16/21 02/21/23 1,000 mcg capsule gabapentin 300 mg capsule 1 cap PO BID 07/16/21 02/21/23 melatonin 3 mg tablet 3 mg PO BEDTIME 07/16/21 02/21/23 multivitamin 1 tab PO DAILY 07/16/21 02/21/23 omeprazole 20 mg capsule,delayed 1 cap PO DAILY@0630 07/16/21 02/21/23 release prednisone 5 mg tablet 1 tab PO DAILY 07/16/21 02/21/23 risperidone 0.5 mg tablet 0.5 mg PO BID 07/16/21 02/21/23 (Risperdal) sertraline 100 mg tablet 1 tab PO DAILY@0800 07/16/21 02/21/23 sertraline 50 mg tablet 1 tab PO DAILY@0800 07/16/21 02/21/23 bisacodyl 10 mg rectal suppository 10 mg MA DAILY PRN Constipation 02/09/22 02/21/23 sodium phosphates 19 gram-7 118 ml MA BEDTIME PRN Constipation 02/09/22 02/21/23 gram/118 mL enema (Fleet Enema) acetaminophen 325 mg tablet 650 mg PO Q4H PRN Fever Or Pain 06/01/22 02/21/23 albuterol sulfate 2.5 mg/3 mL 2.5 mg inhalation Q6H PRN Wheezing 06/01/22 02/21/23 (0.083 %) solution for nebulization aspirin 81 mg tablet,delayed 81 mg PO DAILY 06/01/22 02/21/23 release magnesium hydroxide 400 mg/5 mL 30 ml PO DAILY PRN Constipation 06/01/22 02/21/23 oral suspension (Milk of Magnesia) midodrine 5 mg tablet 5 mg PO TID@0800,1200,1800 11/16/22 02/21/23 peg [id number] 1 1 drp ophthalmic (eye) BID 11/16/22 02/21/23 %-0.2 %-0.2 % eye drops (Artificial Tears ([id number])) guaifenesin 400 mg tablet 400 mg PO BID 02/21/23 02/21/23 ipratropium bromide 0.02 % 2.5 ml inhalation Q6H PRN Wheezing 02/21/23 02/21/23 solution for inhalation miconazole nitrate 2 % topical 1 appl topical BID 02/21/23 02/21/23 cream potassium chloride 25 mEq oral 20 meq PO DAILY@1300 02/21/23 02/21/23 packet Previous Rx's ?Medication ?Instructions ?Recorded amoxicillin 875 mg-potassium 1 tab PO BID #14 tabs 02/26/23 clavulanate 125 mg tablet doxycycline monohydrate 100 mg 100 mg PO BID #14 caps 02/26/23 capsule Allergies Allergy/AdvReac Type Severity Reaction Status Date / Time bacitracin Allergy Unknown Verified 03/21/24 09:37 [From Neosporin ([id number])] iodine Allergy Unknown Verified 03/21/24 09:37 neomycin Allergy Unknown Verified 03/21/24 09:37 [From Neosporin ([id number])] polymyxin B Allergy Unknown Verified 03/21/24 09:37 [From Neosporin ([id number])] Review of Systems Review of Systems: All other systems are reviewed and are negative Constitutional: Reports as per HPI and Reports no additional constitutional complaints Eyes: Reports as per HPI and Reports no additional eye complaints Reports system reviewed and no additional complaints, except as documented Cardiovascular: Reports as per HPI and Reports no additional cardiovascular complaints Respiratory: Reports as per HPI and Reports no additional respiratory complaints Gastrointestinal: Reports as per HPI and Reports no additional gastrointestinal complaints Genitourinary: Reports no additional female genitourinary complaints Musculoskeletal: Reports no additional musculoskeletal complaints Skin/Breast: Reports system reviewed and no additional complaints, except as docu Psychiatric: Reports no additional psychiatric complaints Endocrine: Reports no additional endocrine complaints Hematologic/Lymphatic: Reports no additional hematologic/lymphatic complaints Allergic/Immunologic: Reports no additional allergic/immunologic complaints Reports system reviewed and no additional complaints, except as documented and Reports Abnormal speech present [facility] Past Medical History Medical History (Updated 03/21/24 @ 13:10 by Anne Marie Owen MD) COPD (chronic obstructive pulmonary disease) Compression fx, lumbar spine Myasthenia gravis Dementia High cholesterol Constipation GERD (gastroesophageal reflux disease) Depression BPH (benign prostatic hyperplasia) Compression fx, lumbar spine Compression fx, thoracic spine Myasthenia gravis Urinary retention Dementia Surgical History H/O thymectomy Social History Social History Household Members: Other Household Members Other:: lives in [facility] Housing: Assisted Living Facility Housing Other:: [facility] Do you presently have visiting nurse or other home services: Yes (Pt lives at [facility]) Alcohol intake: never Patient Tobacco Use Status: Tobacco use Unknown Smoked in Last 30 Days: No Use of substances other than those prescribed or required for medical reasons: No Advance Directives: Yes Advance Directives on File: Yes Advance Directives Date on File: 07/17/21 Do you have a plan to hurt others: No Plan service: No Current occupational status: retired and disabled Physical Exam ED Vital Signs: Vital Signs - 24 hr 03/21/24 09:19 03/21/24 11:49 Temperature 98.2 F 97.9 F Pulse Rate 99 102 H Respiratory Rate 16 22 H Blood Pressure 117/86 96/64 Pulse Oximetry 94 92 Oxygen Delivery Method Room Air Room Air BMI result Body Mass Index 21.9 Vital signs have been reviewed and appear to be correct. Blood pressure elevated. Heart rate normal. Respiratory rate normal. Temperature normal. Oxygen saturation normal. Appearance: Alert. Oriented X3. No acute distress. Head: Normal external exam. Normocephalic. Atraumatic. No Strickland signs noted. No raccoon eyes noted Eyes: PERRLA. EOMI. Conjunctiva and sclera normal. Eyelids normal. ENT: TM's Normal. Pharynx normal. Uvula midline. Moist mucous membranes. No trismus noted. No drooling noted. No muffled voice noted. Neck: Normal inspection. Neck supple. FROM. No adenopathy. Thyroid Normal. No meningeal signs. No neck mass noted. CVS: Normal heart rate and rhythm. Heart sound normal. No murmurs noted. Pulses normal throughout. Respiratory: No respiratory distress. Painless inspiration. Breath sounds normal. No wheezes/rales/rhonchi noted. Chest nontender. No accessory muscle usage noted or decreased air movement noted. Abdomen: Soft and nontender. Bowel sounds normal in all 4 quadrants. No distention noted. No organomegaly noted. No visible injury noted. exam: Circumcised, Arroyo catheter in place, suprapubic distention and tenderness, no redness or hotness or suspicion of cellulitis in the perineum or area. Back: No CVA tenderness. Full range of motion noted. Skin: Skin warm and dry. Normal skin color. Normal skin turgor. No rashes/lesions/lacerations noted. Extremities: No lower extremity edema. Extremities exhibit normal range of motion. Extremities nontender. Neuro: Oriented X 3. Cranial nerve exam: II-XII are grossly intact No motor deficit. No sensory deficit. Reflexes normal. Course Reevaluation(s) Reevaluation #1: A suspect of infection and sepsis, IV fluids/antibiotic/lactic acid/blood culture were ordered. Time: 11:50 Reevaluation #2: Chronic indwelling Arroyo catheter that was replaced today, UA is showing severe UTI and patient meet criteria for sepsis no septic shock. Received ceftriaxone and 1 L of fluids. Time: 13:11 Medications Administered Discontinued Medications Generic Name Dose Route Start Last Admin Trade Name Freq PRN Reason Stop Dose Admin Ceftriaxone Sodium 1 gm 03/21/24 11:49 03/21/24 12:10 Ceftriaxone Sodium 1 Gm Vial IVPUSH 03/21/24 11:50 1 gm ONCE ONE Administration Sodium Chloride 1,000 mls @ 999 mls/hr 03/21/24 11:49 03/21/24 12:07 Ns IV 03/21/24 12:49 999 mls/hr .Q1H1M ONE Administration Medical Decision Making Differential Diagnosis Differential Diagnoses: The differential diagnosis associated with the presentation includes (Urinary retention, UTI early, sepsis, electrolyte derangement, severe anemia, Arroyo catheter malfunctioning.) Admission/Observation Consideration of admission/observation: Escalation of care including admission/observation considered Consult Healthcare Provider Management of the patient was discussed with: Hospitalist (Dr. Browne) Lab Data MDM Lab Attestation statement: I reviewed the patient's lab results. 03/21/24 10:59 03/21/24 10:59 Labs: Lab Results 03/21/24 03/21/24 Range/Units 10:59 12:04 WBC 17.9 H (4.8-10.8) X10*3/uL RBC 4.22 L D (4.60-5.80) X10*6/uL Hgb 13.3 L D (14.0-18.0) g/dl Hct 40.0 L D (42.0-52.0) % MCV 94.8 (80.0-98.0) fL MCH 31.5 (27.0-33.0) pg MCHC 33.3 (31.0-36.0) g/dl RDW 13.8 (11.0-16.0) % Plt Count 259 (160-400) X10*3/uL MPV 10.7 (9.4-12.4) fL Immature Gran % (Auto) Cancelled Neut % (Auto) Cancelled Lymph % (Auto) Cancelled Carson % (Auto) Cancelled Eos % (Auto) Cancelled Baso % (Auto) Cancelled Lymph # (Auto) Cancelled Carson # (Auto) Cancelled Eos # (Auto) Cancelled Baso # (Auto) Cancelled Abs Immat Gran (auto) Cancelled Absolute Neuts (auto) Cancelled Absolute Nucleated RBC 0.000 (0.0-0.012) X10*3/uL Nucleated RBC % (auto) 0.0 (0.0-0.2) /100WBC Neutrophils % (Manual) 88 H (45-73) % Band Neutrophils % 2 L (3-5) % Lymphocytes % (Manual) 3 L (20-40) % Monocytes % (Manual) 6 (2-11) % Basophils % (Manual) 1 (0-2) % Abs Neuts (Manual) 16.1 H (2.0-8.3) X10*3/uL Lymphocytes # (Manual) 0.5 L (1.2-4.9) X10*3/uL Monocytes # (Manual) 1.1 (0.1-1.2) X10*3/uL Basophils # (Manual) 0.2 (0.0-0.2) X10*3/uL Toxic Vacuolation PRESENT Platelet Estimate NORMAL (NORMAL) Plt Morphology Comment NORMAL RBC Morphology NORMAL Sodium 144 (135-145) mmol/L Potassium 4.3 (3.3-5.1) mmol/L Chloride 107 (96-108) mmol/L Carbon Dioxide 26 (22-29) mmol/L Anion Gap 15 (12-20) BUN 25 H (9-16) mg/dL Creatinine 1.15 (0.5-1.4) mg/dL Estim Creat Clear Calc 64.3 Estimated GFR > 60 Random Glucose 140 H (60-115) mg/dL Lactic Acid 3.0 H* (0.5-2.0) mmol/L Calcium 9.6 D (8.4-10.2) mg/dL Urine Color Red A Urine Appearance Hazy Urine pH > 9.0 H (5.0-9.0) Ur Specific [place] 1.015 (1.005-1.025) Urine Protein 300 (3+) H (Neg-Trace) mg/dL Urine Glucose (UA) Negative (Negative) mg/dL Urine Ketones Negative (Negative) mg/dL Urine Blood Large (3+) H (Negative) Urine Nitrite Positive H (Negative) Ur Leukocyte Esterase Large (3+) H (Negative) Urine RBC >20 H (0-2) /HPF Urine WBC 21-50 (0-5) /HPF Ur Squamous Epith Cells 0-2 (0-2) /HPF Urine Bacteria 3+ (None Seen) Hyaline Casts 0-2 (0-2) /LPF Discharge Plan Discharge Clinical Impression: Acute UTI, Sepsis Patient Disposition: Admitted As Inpatient Print Language: Hungarian
[2024-03-21 11:04] LABS: Hemoglobin 13.3 g/dl (14.0-18.0); Mean Corpuscular HGB Conc 33.3 g/dl (31.0-36.0); Mean Corpuscular Hemoglobin 31.5 pg (27.0-33.0); Mean Corpuscular Volume 94.8 fL (80.0-98.0); Mean Platelet Volume 10.7 fL (9.4-12.4); Platelet Count 259 X10*3/uL (160-400); Red Blood Count 4.22 X10*6/uL (4.60-5.80); Red Cell Distribution Width 13.8 % (11.0-16.0); White Blood Count 17.9 X10*3/uL (4.8-10.8)
[2024-03-21 11:23] LABS: Anion Gap 15 (12-20); Band Neutrophils Percent 2 % (3-5); Basophils Abs Manual 0.2 X10*3/uL (0.0-0.2); Basophils Percent Manual 1 % (0-2); Blood Urea Nitrogen 25 mg/dL (9-16); Calcium 9.6 mg/dL (8.4-10.2); Carbon Dioxide 26 mmol/L (22-29); Chloride 107 mmol/L (96-108); Color Urine Red; Creatinine Clr Calc Pharmacy 64.3; Estimated Glomerular Filt Rate > 60; Glucose Random 140 mg/dL (60-115); Glucose Urine UA Negative (Negative); Leukocyte Esterase Urine Large (3+) (Negative); Lymphocytes Absolute Manual 0.5 X10*3/uL (1.2-4.9); Lymphocytes Percent Manual 3 % (20-40); Monocytes Absolute Manual 1.1 X10*3/uL (0.1-1.2); Monocytes Percent Manual 6 % (2-11); Neutrophils Absolute Manual 16.1 X10*3/uL (2.0-8.3); Neutrophils Percent Manual 88 % (45-73); Nitrite Urine Positive (Negative); PH > 9.0 (5.0-9.0); Potassium 4.3 mmol/L (3.3-5.1); Sodium 144 mmol/L (135-145); Specific Gravity - Urine 1.015 (1.005-1.025); UMIC TRIGGER UACC YES; Urine Blood Large (3+) (Negative); Urine Ketones Negative (Negative); Urine Protein 300 (3+) mg/dL (Neg-Trace)
[2024-03-21 11:24] LABS: Appearance Urine Hazy; Bacteria Urine 3+ (None Seen); Hyaline Casts Urine 0-2 /LPF (0-2); Platelet Estimate NORMAL (NORMAL); Platelet Morphology Comment NORMAL; RBC Morphology NORMAL; RBC Urine >20 /HPF (0-2); Squamous Epithelial Cell Urine 0-2 /HPF (0-2); Toxic Vacuolation PRESENT; UACC Culture Trigger YES; WBC Urine 21-50 /HPF (0-5)
[2024-03-21 11:49] VITALS: BP 96/64; PULSE 102; RESP 22; TEMP 36.6; O2SAT 92
[2024-03-21] MEDS: 0.9 % Sodium Chloride 1,000 ML 999 ML IV (12:07)
[2024-03-21] MEDS: cefTRIAXone sodium 1 GM VIAL IVPUSH (12:10)
--- NOTE | 2024-03-21 12:33 | PC.NURSE ---
This RN and hospitality specialist to bedside for Pts IV placement. Aware of need for lactic acid blood labs therefore drawn and IVF and Ceftriaxone given. Blood cultures inadvertently missed as worklist has not been amended therefore need was not noted. Blood cultures drawn immediately upon realization. Provider made aware.
--- NOTE | 2024-03-21 12:59 | PM.IMHP ---
History of Present Illness Date of Service: 03/21/24 Attending physician on admission: Jake Harper Chief Complaint: Blood in urine This is a 73-year-old male history CAD, COPD, myasthenia gravis, dementia, hyperlipidemia, constipation, GERD, depression, BPH, who presented to the emergency department from [facility] with blood in urethra, bloody urine within catheter bag and redness to scrotum per facility. Unclear exactly when this started however this was noticed earlier today while he was getting his catheter changed at the nursing facility. Patient is a poor historian and he is not able to give me much of the history. The majority of this history is based off of chart review, papers from facility. Review of Systems Review of Systems: Yes all other systems are reviewed and are negative [facility]LY [facility] Medical History COPD (chronic obstructive pulmonary disease) Compression fx, lumbar spine Myasthenia gravis Dementia High cholesterol Constipation GERD (gastroesophageal reflux disease) Depression BPH (benign prostatic hyperplasia) Compression fx, lumbar spine Compression fx, thoracic spine Myasthenia gravis Urinary retention Dementia Functional capacity: independent ambulation Surgical History H/O thymectomy Social History Household Members: Other Household Members Other:: [facility] Housing: Assisted Living Facility Housing Other:: [facility] Do you presently have visiting nurse or other home services: Yes (Pt lives at [facility]) Alcohol intake: never Patient Tobacco Use Status: Tobacco use Unknown Smoked in Last 30 Days: No Use of substances other than those prescribed or required for medical reasons: No Advance Directives: Yes Advance Directives on File: Yes Advance Directives Date on File: 07/17/21 Do you have a plan to hurt others: No Plan service: No Current occupational status: retired and disabled Meds Allergies Allergy/AdvReac Type Severity Reaction Status Date / Time bacitracin Allergy Unknown Verified 03/21/24 09:37 [From Neosporin ([id number])] iodine Allergy Unknown Verified 03/21/24 09:37 neomycin Allergy Unknown Verified 03/21/24 09:37 [From Neosporin ([id number])] polymyxin B Allergy Unknown Verified 03/21/24 09:37 [From Neosporin ([id number])] Home Medications ?Medication ?Instructions ?Recorded ?Confirmed ?Last Taken ?Type albuterol sulfate 90 mcg/actuation 2 puff inhalation Q4H PRN 07/16/21 02/21/23 Unknown History aerosol inhaler Shortness Of Breath atorvastatin 10 mg tablet 1 tab PO BEDTIME@199907/16/21 02/21/23 Unknown History cyanocobalamin (vitamin B-12) 500 mcg PO DAILY@0800 07/16/21 02/21/23 Unknown History 1,000 mcg capsule gabapentin 300 mg capsule 1 cap PO BID 07/16/21 02/21/23 Unknown History melatonin 3 mg tablet 3 mg PO BEDTIME 07/16/21 02/21/23 Unknown History multivitamin 1 tab PO DAILY 07/16/21 02/21/23 Unknown History omeprazole 20 mg capsule,delayed 1 cap PO DAILY@0607/16/21 02/21/23 Unknown History release prednisone 5 mg tablet 1 tab PO DAILY 07/16/21 02/21/23 Unknown History risperidone 0.5 mg tablet 0.5 mg PO BID 07/16/21 02/21/23 Unknown History (Risperdal) sertraline 100 mg tablet 1 tab PO DAILY@0800 07/16/21 02/21/23 Unknown History sertraline 50 mg tablet 1 tab PO DAILY@0800 07/16/21 02/21/23 Unknown History bisacodyl 10 mg rectal suppository 10 mg LA DAILY PRN Constipation 02/09/22 02/21/23 Unknown History sodium phosphates 19 gram-7 118 ml LA BEDTIME PRN Constipation 02/09/22 02/21/23 Unknown History gram/118 mL enema (Fleet Enema) acetaminophen 325 mg tablet 650 mg PO Q4H PRN Fever Or Pain 06/01/22 02/21/23 Unknown History albuterol sulfate 2.5 mg/3 mL 2.5 mg inhalation Q6H PRN Wheezing 06/01/22 02/21/23 Unknown History (0.083 %) solution for nebulization aspirin 81 mg tablet,delayed 81 mg PO DAILY 06/01/22 02/21/23 Unknown History release magnesium hydroxide 400 mg/5 mL 30 ml PO DAILY PRN Constipation 06/01/22 02/21/23 Unknown History oral suspension (Milk of Magnesia) midodrine 5 mg tablet 5 mg PO TID@0800,1200,1800 11/16/22 02/21/23 Unknown History peg [id number] 1 1 drp ophthalmic (eye) BID 11/16/22 02/21/23 Unknown History %-0.2 %-0.2 % eye drops (Artificial Tears ([id number])) guaifenesin 400 mg tablet 400 mg PO BID 02/21/23 02/21/23 Unknown History ipratropium bromide 0.02 % 2.5 ml inhalation Q6H PRN Wheezing 02/21/23 02/21/23 Unknown History solution for inhalation miconazole nitrate 2 % topical 1 appl topical BID 02/21/23 02/21/23 Unknown History cream potassium chloride 25 mEq oral 20 meq PO DAILY@1300 02/21/23 02/21/23 Unknown History packet Physical Exam Vital Signs and Narrative: Vital Signs: Last Vital Signs Temp 97.9 F 03/21/24 11:49 Pulse 102 H 03/21/24 11:49 Resp 22 H 03/21/24 11:49 BP 96/64 03/21/24 11:49 Pulse Ox 92 03/21/24 11:49 O2 Del Method Room Air 03/21/24 11:49 BMI result Body Mass Index 21.9 Appearance: Alert.? Oriented X3.? No acute distress.? Head: Normocephalic, atraumatic, no step-offs or deformities Eyes: Pupils equal, round and reactive to light.? Neck: Normal inspection.? Neck supple.? CVS: Normal heart rate and rhythm.? Pulses normal.? Respiratory: No respiratory distress.? Breath sounds normal.? Abdomen: Mild distention with mild tenderness particularly in the suprapubic region. Skin: Skin warm and dry.? Normal skin color.? Normal skin turgor.? Extremities: No lower extremity edema.? No calf ttp. Global weakness Back: No CVA tenderness bilaterally Neuro: Oriented X 3.? No motor deficit.? No sensory deficit. CN 2-12 intact Patient's vital signs hypotension, tachypneic, tachycardic. Results Labs 03/21/24 10:59 12/28/24 10:59 Labs: Laboratory Results - last 24 hr 03/21/24 03/21/24 10:59 12:04 MCV 94.8 MCH 31.5 MCHC 33.3 RDW 13.8 Plt Count 259 MPV 10.7 Immature Gran % (Auto) Cancelled Neut % (Auto) Cancelled Lymph % (Auto) Cancelled [place] % (Auto) Cancelled Eos % (Auto) Cancelled Baso % (Auto) Cancelled Lymph # (Auto) Cancelled [place] # (Auto) Cancelled Eos # (Auto) Cancelled Baso # (Auto) Cancelled Abs Immat Gran (auto) Cancelled Absolute Neuts (auto) Cancelled Absolute Nucleated RBC 0.000 Nucleated RBC % (auto) 0.0 Neutrophils % (Manual) 88 H Band Neutrophils % 2 L Lymphocytes % (Manual) 3 L Monocytes % (Manual) 6 Basophils % (Manual) 1 Abs Neuts (Manual) 16.1 H Lymphocytes # (Manual) 0.5 L Monocytes # (Manual) 1.1 Basophils # (Manual) 0.2 Toxic Vacuolation PRESENT Platelet Estimate NORMAL Plt Morphology Comment NORMAL RBC Morphology NORMAL Anion Gap 15 Estim Creat Clear Calc 64.3 Estimated GFR > 60 Random Glucose 140 H Lactic Acid 3.0 H* Calcium 9.6 D Urine Color Red A Urine Appearance Hazy Urine pH > 9.0 H Ur Specific [place] 1.015 Urine Protein 300 (3+) H Urine Glucose (UA) Negative Urine Ketones Negative Urine Blood Large (3+) H Urine Nitrite Positive H Ur Leukocyte Esterase Large (3+) H Urine RBC >20 H Urine WBC 21-50 Ur Squamous Epith Cells 0-2 Urine Bacteria 3+ Hyaline Casts 0-2 Assessment and Plan (1) UTI (urinary tract infection): Status: Acute (2) Sepsis: Status: Acute (3) Hypotension: Status: Acute (4) Acute on chronic urinary retention: Status: Acute (5) Hematuria: Status: Acute (6) COPD (chronic obstructive pulmonary disease): Status: Acute (7) High cholesterol: Status: Acute (8) BPH (benign prostatic hyperplasia): Status: Acute (9) Dementia: Status: Acute Plan 73-year-old male presents today with blood in Arroyo bag, urethra, noted earlier today by nursing staff at [facility] unclear exactly when it started however. There was also scrotal erythema and edema reported however not appreciated on my exam ( no signs of infection, cellulitis or Usha gangrene) While in the emergency department patient had labs, urine done. Labs showed leukocytosis 17.9 with a left shift. Chemistry revealed elevated BUN and creatinine BUN 25, creatinine 1.15 likely in the setting of infection and or poor p.o. in take/dehydration. Lactic acidosis 3.0 also noted. Patient received a L of IV fluids. As well as 1 g of ceftriaxone. Urine was grossly infected with positive leukocytes positive nitrates as well as 3+ bacteria. CT abdomen pelvis with contrast pending per my request. 1)UTI 2)Sepsis 3)Hypotension 4) Urinary retention 5) Hematuria 03/21- Urinary retention likely due to UTI w/ sepsis due to chronic indwelling Arroyo. Hypotension likely in the setting of sepsis (not meeting severe sepsis) , responding to IVF. Recieved Ceftriaxone 1gm IV will continue Ceftriaxone 1G Q24H. Three-way Arroyo placed with irrigation. Urinary retention also likely due to BPH. Hematuria likely due to cystitis/infection, H&H stable will follow AM labs tomorrow . Urine culture and blood cultures pending. 6) COPD 03/21- No respiratory complaints at this time. 92% on RA. Follow patient vitals Q daily 7)High cholesterol 03/21- Continue atorvastatin 1 tab po at bedtime. Continue ASA 81 mg po dailu 8)BPH 03/21 likely contributing to urinary retention. Status post Arroyo catheter placement 9)Dementia 03/21- continue risperdal 0.5 mg po BID, sertraline 1 tab po daily. DVTP- b/l compression therapy as patient is having hematuria Code status: DNR/DNI Quality Stroke Does the patient have a stroke diagnosis?: No VTE Prior VTE?: No VTE Risk Level:: Medical - moderate - high VTE Device Contraindication: N/A - Device Ordered VTE Drug Contraindication: Treatment Not Indicated
[2024-03-21 14:07] LABS: Reflex Lactate? Lactic Acid Added
--- NOTE | 2024-03-21 15:29 | PHA.MEDREC ---
Pharmacy Consult ? Medication Reconciliation Pharmacy has completed the medication reconciliation, utilized list from [facility].
[2024-03-21 15:32] VITALS: BP 98/67; PULSE 105; RESP 19; TEMP 36.6; O2SAT 98
--- NOTE | 2024-03-21 15:56 | PC.NURSE ---
3 way CBI initiated per provider request. 3000ml bag NS instilled, 3100 mls drained. Pt tolerated well. Second bag of 3000 mls NS started.
[2024-03-21] MEDS: 0.9 % Sodium Chloride Flush 3 ML SYRINGE IVFLUSH (18:40)
[2024-03-21 19:47] VITALS: BP 110/76; PULSE 75; RESP 16; TEMP 37.2; O2SAT 96
[2024-03-21] MEDS: Sennosides 8.6 MG TABLET 17.2 MG PO (20:47)
[2024-03-21] MEDS: Docusate Sodium 100 MG CAPSULE PO (20:47)
[2024-03-21] MEDS: Melatonin 3 MG TABLET PO (22:52)
[2024-03-22] MEDS: 0.9 % Sodium Chloride Flush 3 ML SYRINGE IVFLUSH ×3 (00:14→17:34)
--- NOTE | 2024-03-22 05:24 | PC.NURSE ---
Hospitalist notified patient's CBI draining clear yellow urine. CBI clamped per provider. Will continue to monitor.
[2024-03-22 06:49] LABS: MANUAL DIFF FLAG NO
[2024-03-22 06:56] VITALS: BP 111/65; PULSE 99; RESP 18; TEMP 36.3; O2SAT 93
[2024-03-22 06:57] VITALS: BP 111/65; PULSE 101; RESP 18; TEMP 36.3; O2SAT 93
[2024-03-22 07:00] LABS: Basophils Percent Auto 0.5 % (0-2); Eosinophils Absolute Auto 0.1 X10*3/uL (0.0-0.4); Eosinophils Percent Auto 0.9 % (0-4); Hematocrit 37.1 % (42.0-52.0); Hemoglobin 12.2 g/dl (14.0-18.0); Imm Gran Abs Auto 0.04 X10*3/uL (0.00-0.03); Imm Gran Pct Auto 0.5 % (0.0-0.4); Lymphocytes Percent Auto 11.9 % (20-40); Mean Corpuscular HGB Conc 32.9 g/dl (31.0-36.0); Mean Corpuscular Hemoglobin 31.6 pg (27.0-33.0); Mean Corpuscular Volume 96.1 fL (80.0-98.0); Mean Platelet Volume 11.2 fL (9.4-12.4); Monocytes Absolute Auto 0.7 X10*3/uL (0.1-1.2); Monocytes Percent Auto 7.9 % (2-11); Neutrophils Absolute Auto 6.6 x10*3/uL (2.0-8.3); Neutrophils Percent Auto 78.3 % (45-73); Platelet Count 229 X10*3/uL (160-400); Red Blood Count 3.86 X10*6/uL (4.60-5.80); Red Cell Distribution Width 14.2 % (11.0-16.0); White Blood Count 8.5 X10*3/uL (4.8-10.8)
[2024-03-22 07:09] LABS: Alanine Aminotransferase 17 U/L (0-40); Albumin Level 3.9 g/dL (3.5-5.0); Alkaline Phosphatase 63 U/L (39-117); Anion Gap 13 (12-20); Aspartate Amino Transferase 24 U/L (5-37); Bilirubin Total 1.2 mg/dL (0.0-1.0); Blood Urea Nitrogen 21 mg/dL (9-16); Calcium 9.4 mg/dL (8.4-10.2); Carbon Dioxide 25 mmol/L (22-29); Chloride 108 mmol/L (96-108); Creatinine Clr Calc Pharmacy 90.2; Estimated Glomerular Filt Rate > 60; Glucose Random 127 mg/dL (60-115); Potassium 3.5 mmol/L (3.3-5.1); Sodium 142 mmol/L (135-145)
[2024-03-22] MEDS: Gabapentin 300 MG CAPSULE PO ×2 (09:08→20:11)
[2024-03-22] MEDS: Multivitamin TABLET 1 TAB PO (09:09)
[2024-03-22] MEDS: Omeprazole 20 MG CAPSULE.DR PO (09:09)
[2024-03-22] MEDS: Midodrine HCl 5 MG TABLET PO ×3 (09:09→17:34)
[2024-03-22] MEDS: predniSONE 5 MG TABLET PO (09:09)
[2024-03-22] MEDS: guaiFENesin 200 MG/10 ML 10 ML LIQUID 20 ML PO ×2 (09:09→21:00)
[2024-03-22] MEDS: Docusate Sodium 100 MG CAPSULE PO ×2 (09:09→20:11)
[2024-03-22] MEDS: Topiramate 25 MG TABLET PO (09:09)
--- NOTE | 2024-03-22 10:24 | MHC.CM.PN ---
IMM 03/22/24, CM spoke to son / HCP, Mustapha, because pt. baseline confusion d/t Dementia. He resides at [facility], where he will return via BLS at DC. IMM left in room for son, discussed on the phone. CM to follow for DC needs.
--- NOTE | 2024-03-22 12:14 | P.PNIM_ITS ---
Subjective Subjective Date of Service: 03/22/24 Interval History: Bleeding resolved with 3 way irrigation. No other acute issues Review of Systems Unable to obtain Physical Exam 2 Vital Signs: Vital Signs: Last Vital Signs Temp 97.3 F 03/22/24 06:57 Pulse 101 H 03/22/24 06:57 Resp 18 03/22/24 06:57 BP 111/65 03/22/24 06:57 Pulse Ox 93 03/22/24 06:57 O2 Del Method Room Air 03/22/24 06:57 BMI result Body Mass Index 21.9 Const: Other: Awake alert confused in no acute distress Resp: Other: Clear to auscultation bilaterally no rales rhonchi or wheezes Cardio: Other: No S4; positive S1-S2; no S3 murmurs rubs or gallops GI: Other: Soft nontender nondistended normoactive bowel sounds Extrem: Other: No edema bilaterally Objective Data Active Medications Acetaminophen (Acetaminophen 325 Mg Tablet) 650 mg PO Q6H PRN PRN Reason: Pain, Mild 1-3,fever,headache Atorvastatin Calcium (Atorvastatin Calcium 10 Mg Tablet) 10 mg PO BEDTIME [facility] Calcium Carbonate (Calcium Carbonate 750 Mg Tab.Chew) 750 mg PO Q4H PRN PRN Reason: Heartburn Ceftriaxone Sodium (Ceftriaxone Sodium 1 Gm Vial) 1 gm IVPUSH Q24H [facility] Cyanocobalamin (Cyanocobalamin (Vitamin B-12) 500 Mcg Tablet) 500 mcg PO DAILY [facility] Docusate Sodium (Docusate Sodium 100 Mg Capsule) 100 mg PO BID [facility] Last Admin: 03/22/24 09:09 Dose: 100 mg Documented By: HOWIE Gabapentin (Gabapentin 300 Mg Capsule) 300 mg PO BID [facility] Last Admin: 03/22/24 09:08 Dose: 300 mg Documented By: HOWIE Guaifenesin (Guaifenesin 200 Mg/10 Ml 10 Ml Liquid) 20 ml PO BID [facility] Last Admin: 03/22/24 09:09 Dose: 20 ml Documented By: HOWIE Melatonin (Melatonin 3 Mg Tablet) 3 mg PO BEDTIME PRN PRN Reason: Insomnia Last Admin: 03/21/24 22:52 Dose: 3 mg Documented By: JULIAN Midodrine (Midodrine Hcl 5 Mg Tablet) 5 mg PO TID@1000,1400,1800 [facility] Last Admin: 03/22/24 09:09 Dose: 5 mg Documented By: HOWIE Multivitamins/Vitamin C (Multivitamin Tablet) 1 tab PO DAILY [facility] Last Admin: 03/22/24 09:09 Dose: 1 tab Documented By: HOWIE Omeprazole (Omeprazole 20 Mg Capsule.) 20 mg PO DAILY@0630 [facility] Last Admin: 03/22/24 09:09 Dose: 20 mg Documented By: HOWIE Ondansetron HCl (Ondansetron Hcl 4 Mg/2 Ml Vial) 4 mg IVPUSH Q8H PRN PRN Reason: Nausea and Vomiting Polyethylene Glycol (Polyethylene Glycol 3350 17 Gm Powd.Pack) 17 gm PO DAILY PRN PRN Reason: Constipation Prednisone (Prednisone 5 Mg Tablet) 5 mg PO DAILY [facility] Last Admin: 03/22/24 09:09 Dose: 5 mg Documented By: HOWIE Senna (Sennosides 8.6 Mg Tablet) 17.2 mg PO BEDTIME [facility] Last Admin: 03/21/24 20:47 Dose: 17.2 mg Documented By: JULIAN Sertraline HCl (Sertraline Hcl 100 Mg Tablet) 100 mg PO DAILY [facility] Sertraline HCl (Sertraline Hcl 50 Mg Tablet) 50 mg PO DAILY [facility] Sodium Chloride (0.9 % Sodium Chloride Flush 3 Ml Syringe) 3 ml IVFLUSH QSHIFT [facility] Last Admin: 03/22/24 09:09 Dose: 3 ml Documented By: HOWIE Topiramate (Topiramate 25 Mg Tablet) 25 mg PO DAILY [facility] Last Admin: 03/22/24 09:09 Dose: 25 mg Documented By: HOWIE Labs 03/22/24 06:02 03/22/24 06:02 Labs: Laboratory Results - last 24 hr 03/21/24 03/21/24 03/22/24 12:04 14:22 06:02 MCV 96.1 MCH 31.6 MCHC 32.9 RDW 14.2 Plt Count 229 MPV 11.2 Immature Gran % (Auto) 0.5 H Neut % (Auto) 78.3 H Lymph % (Auto) 11.9 L [place] % (Auto) 7.9 Eos % (Auto) 0.9 Baso % (Auto) 0.5 Lymph # (Auto) 1.0 L [place] # (Auto) 0.7 Eos # (Auto) 0.1 Baso # (Auto) 0.0 Abs Immat Gran (auto) 0.04 H Absolute Neuts (auto) 6.6 Absolute Nucleated RBC 0.000 Nucleated RBC % (auto) 0.0 Anion Gap 13 Estim Creat Clear Calc 90.2 Estimated GFR > 60 Random Glucose 127 H Lactic Acid 3.0 H* Lactic Acid F/U @ 2Hr 1.0 Calcium 9.4 Total Bilirubin 1.2 H AST 24 ALT 17 Alkaline Phosphatase 63 Total Protein 7.0 Albumin 3.9 Microbiology Microbiology Results: Microbiology 03/21/24 12:04 Urine Culture - Final Urine Catheterized - Arroyo Catheter Assessment and Plan (1) Acute UTI: Status: Acute (2) Dementia: Status: Acute Plan 73-year-old male presents today with blood in Arroyo bag, urethra, noted earlier today by nursing staff at [facility] unclear exactly when it started however. There was also scrotal erythema and edema reported however not appreciated on my exam ( no signs of infection, cellulitis or Usha gangrene) While in the emergency department patient had labs, urine done. Labs showed leukocytosis 17.9 with a left shift. Chemistry revealed elevated BUN and creatinine BUN 25, creatinine 1.15 likely in the setting of infection and or poor p.o. in take/dehydration. Lactic acidosis 3.0 also noted. Patient received a L of IV fluids. As well as 1 g of ceftriaxone. Urine was grossly infected with positive leukocytes positive nitrates as well as 3+ bacteria. 1.Urinary retention likely due to UTI w/ sepsis due to chronic indwelling Arroyo. -continue ceftriaxone 1 g IV daily. No further hematuria -urine with greater than 100,000 mixed ricco (related to chronic indwelling Arroyo) -if no further hematuria overnight we will switch to simple Arroyo and DC back to [facility] 2.COPD -no acute issues this admission 3. BPH -switch to regular Arroyo in a.m. 4. Dementia -stable and well compensated -continue outpatient therapies DNR DNI Pneumatics Quality Stroke Does the patient have a stroke diagnosis?: No VTE Prior VTE?: No VTE Risk Level:: Medical - moderate - high VTE Device Contraindication: N/A - Device Ordered VTE Drug Contraindication: Treatment Not Indicated
[2024-03-22] MEDS: cefTRIAXone sodium 1 GM VIAL IVPUSH (13:31)
[2024-03-22 15:06] VITALS: BP 110/74; PULSE 62; RESP 16; TEMP 36.3; O2SAT 94
[2024-03-22 20:00] VITALS: BP 126/83; PULSE 84; RESP 16; TEMP 36.3; O2SAT 94
[2024-03-22] MEDS: Acetaminophen 325 MG TABLET 650 MG PO (20:11)
[2024-03-22] MEDS: Sennosides 8.6 MG TABLET 17.2 MG PO (20:11)
[2024-03-22] MEDS: Melatonin 3 MG TABLET PO (20:11)
[2024-03-22] MEDS: Atorvastatin Calcium 10 MG TABLET PO (20:11)
[2024-03-23 03:20] VITALS: BP 122/73; PULSE 77; RESP 17; TEMP 36.1; O2SAT 92
[2024-03-23 07:13] VITALS: BP 119/82; PULSE 81; RESP 16; TEMP 37.1; O2SAT 93
[2024-03-23] MEDS: Omeprazole 20 MG CAPSULE.DR PO (07:13)
[2024-03-23 09:18] VITALS: BP 119/82
[2024-03-23] MEDS: Midodrine HCl 5 MG TABLET PO (09:18)
[2024-03-23] MEDS: Sertraline HCL 100 MG TABLET PO (09:18)
[2024-03-23] MEDS: Cyanocobalamin (Vitamin B-12) 500 MCG TABLET PO (09:18)
[2024-03-23] MEDS: Topiramate 25 MG TABLET PO (09:18)
[2024-03-23] MEDS: Sertraline HCL 50 MG TABLET PO (09:18)
[2024-03-23] MEDS: Multivitamin TABLET 1 TAB PO (09:18)
[2024-03-23] MEDS: Docusate Sodium 100 MG CAPSULE PO (09:18)
[2024-03-23] MEDS: Gabapentin 300 MG CAPSULE PO (09:18)
[2024-03-23] MEDS: 0.9 % Sodium Chloride Flush 3 ML SYRINGE IVFLUSH ×2 (09:19)
[2024-03-23] MEDS: predniSONE 5 MG TABLET PO (09:19)
--- NOTE | 2024-03-23 11:09 | MHC.CM.PN ---
Per MD, Patient is medically cleared for dc today, to return to LTC. Patient will return to [facility] today at 1PM, via [facility]. CM spoke with Son/HCP/Mustapha @ [phone] and informed him of the dc plan. Last IMM was addressed yesterday.
[2024-03-23] MEDS: cefTRIAXone sodium 1 GM VIAL IVPUSH (11:20)
--- NOTE | 2024-03-23 11:23 | P.DS_ITS ---
DS: Providers Provider Date of Service: 03/23/24 Date of admission: 03/21/24 13:26 Date of discharge: 03/23/24 Primary care physician: Trav Verdugo MD DS: Diagnosis Discharge Diagnosis (1) Acute UTI: Status: Acute (2) Dementia: Status: Acute DS: Summary Hospital Course Hospital Course: 73-year-old male history CAD, COPD, myasthenia gravis, dementia, hyperlipidemia, constipation, GERD, depression, BPH, who presented to the emergency department from [facility] with blood in urethra, bloody urine within catheter bag and redness to scrotum per facility. Unclear exactly when this started however this was noticed earlier today while he was getting his catheter changed at the nursing facility. Patient is a poor historian and he is not able to give me much of the history. The majority of this history is based off of chart review, papers from facility. Hospital course Patient was admitted to telemetry and received bladder irrigation after 3 way Arroyo was inserted. After 24 hours hematuria cleared. Urine had active sediment however culture grew out multiple organisms. His initial white count was 17.9 on admission however after 48 hours of antibiotics is normal at 8.5. Given this dramatic improvement, he will be completing a course of oral Ceftin when returned today [facility]. His 3 way Arroyo will be left in and an appointment needs to be made with Urology and they will remove it and insert a new cath. At this point he is medically acceptable for return to [facility] Time Attestation Discharge Coordination Time (in mins): 35 Quality: Safe Use of Opioids Does Pt have an Active Cancer Diagnosis on the Problem List?: No Quality: Stroke Does the patient have a stroke diagnosis?: No Physical Exam Vital Signs: Vital Signs: Last Vital Signs Temp 98.8 F 03/23/24 07:13 Pulse 81 03/23/24 07:13 Resp 16 03/23/24 07:13 BP 119/82 03/23/24 09:18 Pulse Ox 93 03/23/24 07:13 O2 Del Method Room Air 03/23/24 07:13 BMI result Body Mass Index 21.9 Const: Other: Awake alert confused in no acute distress Resp: Other: Clear to auscultation bilaterally no rales rhonchi or wheezes Cardio: Other: No S4; positive S1-S2; no S3 murmurs rubs or gallops GI: Other: Soft nontender nondistended normoactive bowel sounds Extrem: Other: No edema bilaterally DS: Data Data Completed and Pending Completed studies during hospitalization [Text1]: Procedures Drainage of Right Buttock, Open Approach (02/21/23) Insertion of Infusion Device into Right Basilic Vein, Percutaneous Approach (11/16/22) Insertion of Infusion Device into Right Brachial Vein, Percutaneous Approach (06/01/22) Labs on day of discharge: Preliminary micro results at discharge 03/21/24 12:31 Blood Culture - Preliminary Blood - Venous No growth after 24 hours. 03/21/24 12:31 Blood Culture - Preliminary Blood - Venous No growth after 24 hours. Discharge Plan Discharge Anticipated Discharge Date/Time: 03/23/24 11:19 Patient Disposition: er [facility] Discharge Diagnosis: Hematuria secondary to UTI Referrals: Liane Tucker [Outside] - 1 Week Trav Verdugo MD [Primary Care Provider] - 1 Week Discharge Medications: New cefuroxime axetil 500 mg tablet 500 mg PO BID 10 Days Qty: 20 0RF Continued bisacodyl 10 mg Suppository 10 mg DE DAILY PRN (Reason: Constipation) Rx Instructions: if milk of magnesia not effective Fleet Enema 19-7 gram/118 mL Enema 118 ml DE BEDTIME PRN (Reason: Constipation) Rx Instructions: when dulcolax suppository not effective acetaminophen 325 mg Tablet 650 mg PO Q4H PRN (Reason: Fever Or Pain) magnesium hydroxide [Milk of Magnesia] 400 mg/5 mL Suspension 30 ml PO DAILY PRN (Reason: Constipation) Rx Instructions: for no bm in 3 days atorvastatin 10 mg tablet 1 tab PO BEDTIME@2000 sertraline 100 mg tablet 1 tab PO DAILY@0800 Rx Instructions: take with 50 mg for 150 mg total dose prednisone 5 mg tablet 1 tab PO DAILY gabapentin 300 mg capsule 1 cap PO BID omeprazole 20 mg capsule,delayed release(DR/EC) 1 cap PO DAILY@0630 sertraline 50 mg tablet 1 tab PO DAILY@0800 Rx Instructions: take with 100 mg for total dose of 150 mg multivitamin Tablet 1 tab PO DAILY melatonin 3 mg Tablet 3 mg PO BEDTIME@2000 cyanocobalamin (vitamin B-12) 1,000 mcg Capsule 500 mcg PO DAILY@0800 Artificial Tears([id number]) 1-0.2-0.2 % Drops 1 drp OPHTHALMIC (EYE) BID midodrine 5 mg Tablet 5 mg PO TID@1000,1400,1800 Rx Instructions: do not give last dose of day after 6PM or within 4 hrs of bedtime miconazole nitrate 2 % Cream 1 appl TOPICAL BID guaifenesin 400 mg Tablet 400 mg PO BID aspirin 81 mg Tablet,Chewable 81 mg PO DAILY nystatin 100,000 unit/gram Powder 1 appl TOPICAL BID topiramate 15 mg Capsule, Sprinkle 15 mg PO DAILY@2000 Discharge Orders: Discharge Order (Routine); Ordered 03/23/24 Ordered By: Jake Harper Diet: Advance to usual diet Activity on Discharge: As tolerated Stand Alone Forms: Patient Portal Discharge page Print Language: Liberian Care Plan Goals: Ceftin 500 mg twice daily for 10 days has been added to your regimen to treat urinary tract infection Health Concerns: You received a 3 way catheter with irrigation. This catheter should stay in until your followed up by Urology. They were when move it in the office Plan of Treatment: Resume plan of care as previously at [facility] Assessment: See discharge summary
[2024-03-23 11:27] VITALS: BP 113/74; PULSE 82; RESP 16; TEMP 36.5; O2SAT 92
--- NOTE | 2024-03-24 07:36 | P.CDIM_ITS ---
PROVIDER RESPONSE TEXT: To clarify, the appropriate diagnosis supported by the clinical indicators: Acute QUERY TEXT: PHYSICIAN'S DOCUMENTATION REQUEST Date of Query: 03/23/2024 07:50 AM EST Patient Name: Adolfo Rizzo Admit Date: 03/21/2024 Dear Jake Harper DO, A review of the medical record indicates additional documentation may be needed. Please review below and update the documentation accordingly. Clinical Indicators: H&P 03/21 - Lactic acidosis 3.0 also noted. IV fluids. Clarify which of the following accurately represents the acuity of the Lactic acidosis: Possible options might include: Acute Acute on chronic Chronic Other (explain) Clinically unable to determine (explain) Thank you, Le [place], CCS, CDIS Use of terms such as suspected, likely, concern for, or probable (associated with a specific diagnosi s that is being evaluated, monitored, or treated as if it exists) are acceptable and can be coded in the inpatient se tting, when documented at the time of discharge. Please use your independent medical judgment in providing your response. THIS QUERY IS PART OF THE PERMANENT MEDICAL RECORD
== END 2024-03-23 13:47 | DRG 698 ==
LOC: HO.ED 13:10 → HO.EDOVER 13:35 → HO.IMC 15:30
PROVIDERS: Admitting Provider Physician Assistant; Emergency Provider Emergency Medicine; PCP Family Medicine Geriatric Medicine; Visit Provider Hospitalist
DX: T83.511A Infection and inflammatory reaction due to indwelling urethral catheter, initial encounter (principal); A41.9 Sepsis, unspecified organism; E87.21 Acute metabolic acidosis; R31.0 Gross hematuria; I25.10 Atherosclerotic heart disease of native coronary artery without angina pectoris; N50.89 Other specified disorders of the male genital organs; J44.9 Chronic obstructive pulmonary disease, unspecified; N40.1 Benign prostatic hyperplasia with lower urinary tract symptoms; Z66 Do not resuscitate; F03.90 Unspecified dementia, unspecified severity, without behavioral disturbance, psychotic disturbance, mood disturbance, and anxiety; R33.8 Other retention of urine; I95.9 Hypotension, unspecified; E78.00 Pure hypercholesterolemia, unspecified; Z79.82 Long term (current) use of aspirin; Z79.52 Long term (current) use of systemic steroids; Z79.899 Other long term (current) drug therapy
CPT/HCPCS: 36415; 74176; 80048; 80053; 81001; 83605; 85007; 85025; 85027; 87040; 87086; 99285; C1758; J0696

== ENCOUNTER 2024-03-21 13:26 | Outpatient (BNV) | payer MEDICARE, MEDICAID, SELFPAY | END 2024-03-21 13:52 | PROVIDERS: Admitting Provider Physician Assistant; Emergency Provider Emergency Medicine; PCP Family Medicine Geriatric Medicine; Visit Provider Radiology Neuroradiology | DX: N20.0 Calculus of kidney (principal); K80.80 Other cholelithiasis without obstruction | CPT/HCPCS: 74176 ==

== ENCOUNTER → 2024-03-21 13:26 | Outpatient (BNV) | payer MEDICARE, MEDICAID, SELFPAY | PROVIDERS: Admitting Provider Physician Assistant; Emergency Provider Emergency Medicine; PCP Family Medicine Geriatric Medicine; Visit Provider Physician Assistant | DX: N39.0 Urinary tract infection, site not specified (principal); F03.90 Unspecified dementia, unspecified severity, without behavioral disturbance, psychotic disturbance, mood disturbance, and anxiety | CPT/HCPCS: 99232; 99239 ==

== ENCOUNTER 2024-04-21 11:18 | Inpatient (IN) | payer MEDICARE, MEDICAID, SELFPAY ==
[2024-04-21] VITALS (7 sets, daily range): BP systolic 100–117; BP diastolic 69–80; PULSE 91–118; RESP 20–24; TEMP 37.7–38.4; O2SAT 94–97; BMI 23.3
--- NOTE | ~2024-04-21 | CT_ITS ---
EXAMINATION: CT PELVIS WITHOUT CONTRAST CLINICAL INFORMATION: Abscess, right buttock region. COMPARISON: CT abdomen and pelvis dated March 21, 2024. TECHNIQUE: Helical scanning was performed with submillimeter collimation through the pelvis. Sagittal and coronal multiplanar 2-D reconstructions were obtained. This CT examination was performed using dose optimization techniques as appropriate, variously including the following: *Automated exposure control *Adjustment of mA and/or kV according to patient size (this includes techniques or standardized protocols for targeted exams where dose is matched to indication/reason for exam; i.e. extremities or head) *Use of iterative reconstruction technique. DLP: 578 mGy centimeter. FINDINGS: : Limited due to lack of IV contrast administration. There is a 2 x 8 x 12 cm irregular shaped and heel marginated fluid density beneath the skin in the right gluteal region. There is edema pattern throughout the right gluteal region. There is fatty atrophy of the right gluteal muscles. There is abundant stool within the rectum. No perirectal edema pattern or fluid collections. Appendix is normal. Scattered diverticula in the rectosigmoid colon. Calcified plaques abdominal aorta wall and iliac arteries. Status post Arroyo catheter placed in a collapsed bladder. 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 There is a compression fracture deformity with the soft tissue component centered at L4 vertebra extending into the anterior prevertebral compartment resulting in 80% volume loss. Osteopenia versus osteoporosis. Status post removal of a right femoral head neck screw. CT/CT pelvis wo IV con IMPRESSION: 2 x 8 x 12 cm phlegmon, right gluteal region. Concerning subacute pathologic fracture, L4 vertebra superimposed infection cannot be excluded. Electronically signed by: Fahad Lovelace MD 04/21/2024 02:17 PM [facility]
--- NOTE | 2024-04-21 11:36 | ED_ITS ---
HPI - General Adult General Chief complaint: Wound/Laceration Stated complaint: R BUTTOCK ABSCESS DRAINING FROM SNF PER EMS Time Seen by Provider: 04/21/24 11:35 Source: patient, EMS, RN notes reviewed, old records reviewed and other (paperwork from facility) Mode of arrival: EMS Limitations: altered mental status History of Present Illness ED Provider: Siomne HPI narrative: Patient is a 73-year-old male with history of myasthenia gravis, dementia, MRSA, COPD, GERD, constipation, high cholesterol, depression presenting to ED from [facility] for evaluation of a right buttock abscess. Patient unable to provide reliable history. Complains of pain to right buttock. MD complaint: abscess Onset (ago): month(s) Related Data Home Medications ?Medication ?Instructions ?Recorded ?Confirmed atorvastatin 10 mg tablet 1 tab PO BEDTIME@199907/16/21 04/21/24 cyanocobalamin (vitamin B-12) 500 mcg PO DAILY@79907/16/21 04/21/24 1,000 mcg capsule gabapentin 300 mg capsule 1 cap PO BID 07/16/21 04/21/24 melatonin 3 mg tablet 3 mg PO BEDTIME@199907/16/21 04/21/24 multivitamin 1 tab PO DAILY 07/16/21 04/21/24 omeprazole 20 mg capsule,delayed 1 cap PO DAILY@62907/16/21 04/21/24 release prednisone 5 mg tablet 1 tab PO DAILY 07/16/21 04/21/24 sertraline 100 mg tablet 1 tab PO DAILY@79907/16/21 04/21/24 sertraline 50 mg tablet 25 mg PO DAILY@79907/16/21 04/21/24 bisacodyl 10 mg rectal suppository 10 mg PA DAILY PRN Constipation 02/09/22 04/21/24 sodium phosphates 19 gram-7 118 ml PA DAILY PRN Constipation 02/09/22 04/21/24 gram/118 mL enema (Fleet Enema) acetaminophen 325 mg tablet 650 mg PO Q4H PRN Fever Or Pain 06/01/22 04/21/24 magnesium hydroxide 400 mg/5 mL 30 ml PO DAILY PRN Constipation 06/01/22 04/21/24 oral suspension (Milk of Magnesia) midodrine 5 mg tablet 5 mg PO TID 11/16/22 04/21/24 peg [id number] 1 1 drp ophthalmic (eye) BID 11/16/22 04/21/24 %-0.2 %-0.2 % eye drops (Artificial Tears ([id number])) guaifenesin 400 mg tablet 400 mg PO BID 02/21/23 04/21/24 aspirin 81 mg chewable tablet 81 mg PO DAILY 03/21/24 04/21/24 nystatin 100,000 unit/gram topical 1 appl topical BID 03/21/24 04/21/24 powder topiramate 15 mg sprinkle capsule 15 mg PO DAILY@199903/21/24 04/21/24 miconazole nitrate 2 % topical 1 spray topical BID 04/21/24 04/21/24 spray powder Allergies Allergy/AdvReac Type Severity Reaction Status Date / Time bacitracin Allergy Unknown Verified 04/21/24 11:56 [From Neosporin ([id number])] iodine Allergy Unknown Verified 04/21/24 11:56 neomycin Allergy Unknown Verified 04/21/24 11:56 [From Neosporin ([id number])] polymyxin B Allergy Unknown Verified 04/21/24 11:56 [From Neosporin ([id number])] Review of Systems 2 Review of Systems: As per HPI Yes all other systems are reviewed and are negative Neurologic: Reports confusion Psychiatric: Psychiatric: Reports confusion [facility] Past Medical History Medical History COPD (chronic obstructive pulmonary disease) Compression fx, lumbar spine Myasthenia gravis Dementia High cholesterol Constipation GERD (gastroesophageal reflux disease) Depression BPH (benign prostatic hyperplasia) Compression fx, lumbar spine Compression fx, thoracic spine Myasthenia gravis Urinary retention Dementia Surgical History H/O thymectomy Social History Social History Household Members: Other Household Members Other:: lives in [facility] Housing: Skilled Nursing Housing Other:: [facility] Do you presently have visiting nurse or other home services: Yes (Pt lives at [facility]) Alcohol intake: never Patient Tobacco Use Status: Tobacco use Unknown Smoked in Last 30 Days: No Use of substances other than those prescribed or required for medical reasons: No Advance Directives: Yes Advance Directives on File: Yes Advance Directives Date on File: 07/17/21 Do you have a plan to hurt others: No Plan service: No Current occupational status: retired and disabled Physical Exam ED Vital Signs: Vital Signs - 24 hr 04/21/24 11:41 04/21/24 12:50 04/21/24 13:52 Temperature 101.1 F H 100.9 F H 100.7 F H Pulse Rate 111 H 111 H 102 H Respiratory Rate 20 20 20 Blood Pressure 116/77 108/76 107/71 Pulse Oximetry 95 94 97 Oxygen Delivery Method Room Air Nasal Cannula Nasal Cannula Oxygen Flow Rate 2 2 04/21/24 14:16 04/21/24 15:14 Temperature 100.7 F H Pulse Rate 100 95 Respiratory Rate 24 H 20 Blood Pressure 117/71 100/71 Pulse Oximetry 94 95 Oxygen Delivery Method Nasal Cannula Nasal Cannula Oxygen Flow Rate 2 2 BMI result Body Mass Index 23.3 Const General: cooperative, no acute distress, alert, awake and confusion Nutritional Appearance: average body habitus Orientation/consciousness: oriented to person, No oriented to place, No oriented to time and confusion Limitations: altered mental status HENMT Head: Yes normocephalic and Yes atraumatic Ears: hearing grossly normal bilaterally and external ears normal General nose exam: Normal external nose present Face and sinus: Yes normal facial exam Mouth: Normal oral and palatal mucosa present Throat: Yes posterior oropharynx normal and Yes uvula midline Eyes Pupils: Equal, round and reactive pupils present Neck Neck: Yes trachea midline and Yes supple Resp Effort & Inspection: normal respiratory effort and able to speak in complete sentences Auscultation: clear to auscultation bilaterally Cardio Rate: tachycardic Rhythm: regular rhythm Heart sounds: S1 normal heart sound present and S2 normal heart sound present Peripheral pulses: Peripheral pulses 2+ throughout GI Palpation (GI): Soft to palpation and nontender Auscultation: normal bowel sounds Other: indwelling urinary catheter present on arrival General: Yes no CVA tenderness Back/Spine/Pelvis Back: no CVA tenderness Skin Full body images: 2 1. abscess with central opening draining copious amounts of purulent fluid with surrounding erythema and warmth Neuro General: oriented to person, No oriented to place, No oriented to time and confusion Cranial nerves: Yes Equal, round and reactive pupils present Medications Administered Discontinued Medications Generic Name Dose Route Start Last Admin Trade Name Akil PRN Reason Stop Dose Admin Acetaminophen 975 mg 04/21/24 11:49 04/21/24 12:28 Acetaminophen 325 Mg Tablet PO 04/21/24 11:50 975 mg ONCE ONE Administration Hydrocortisone Sodium Succinate 100 mg 04/21/24 11:57 04/21/24 12:28 Hydrocortisone Sod Succ/Pf 100 Mg Vial IVPUSH 04/21/24 11:58 100 mg ONCE ONE Administration Lactated Ringer's 1,000 mls @ 999 mls/hr 04/21/24 12:00 04/21/24 14:14 Lr IV 04/21/24 13:00 Infused .Q1H1M BUTCH Infusion Vancomycin HCl 2,000 mg in 500 mls @ 250 mls/hr 04/21/24 11:57 04/21/24 12:50 Vancomycin/Ns IV 04/21/24 13:56 250 mls/hr ONCE ONE Administration Piperacillin Sod/Tazobactam 50 mls @ 100 mls/hr 04/21/24 11:57 04/21/24 13:05 Sod 3.375 gm/ Sodium Chloride IV 04/21/24 12:26 Infused ONCE ONE Infusion Ibuprofen 600 mg 04/21/24 14:25 04/21/24 15:04 Ibuprofen 600 Mg Tablet PO 04/21/24 14:26 600 mg ONCE ONE Administration Medical Decision Making Medical Decision Making [facility] Narrative: Patient is a 73-year-old male with history of myasthenia gravis, dementia, MRSA, COPD, GERD, constipation, high cholesterol, depression presenting to ED from [facility] for evaluation of a right buttock abscess. On exam patient is awake, A+Ox1, tachycardic, febrile, physical exam findings as above. Given reported symptoms and physical exam findings, initial differential includes but is not limited to abscess, cellulitis, deep space infection, osteomyelitis, sepsis. Patient meeting sepsis criteria for fever and tachycardia, blood cultures, lactic, antibiotics, fluids, and stress dose steroids ordered at 12:10. Labs notable for leukocytosis with left shift, mildly elevated lactic. Patient does not meet criteria for 30mL/kg fluid bolus. CT pelvis notable for 2 x 8 x 12cm phlegmon. My interpretation is in agreement with the radiologist's interpretation. Pathologic fracture of L4 also noted on CT, which was present on prior CT in January, and patient had subsequent MRI of L spine. Admission to medicine accepted by Dr. Jones. Differential Diagnosis Differential Diagnoses: The differential diagnosis associated with the presentation includes As per [facility] Admission/Observation Consideration of admission/observation: Escalation of care including admission/observation considered Consult Healthcare Provider Management of the patient was discussed with: Hospitalist Lab Data [facility] Lab Attestation statement: I reviewed the patient's lab results. As per [facility] 04/21/24 12:11 04/21/24 12:11 Labs: Lab Results 04/21/24 04/21/24 04/21/24 Range/Units 12:11 12:16 14:27 WBC 16.8 H (4.8-10.8) X10*3/uL RBC 4.12 L (4.60-5.80) X10*6/uL Hgb 12.7 L (14.0-18.0) g/dl Hct 38.8 L (42.0-52.0) % MCV 94.2 (80.0-98.0) fL MCH 30.8 (27.0-33.0) pg MCHC 32.7 (31.0-36.0) g/dl RDW 13.7 (11.0-16.0) % Plt Count 360 D (160-400) X10*3/uL MPV 10.5 (9.4-12.4) fL Immature Gran % (Auto) 0.5 H (0.0-0.4) % Neut % (Auto) 82.3 H (45-73) % Lymph % (Auto) 9.3 L (20-40) % Hamblen % (Auto) 6.6 (2-11) % Eos % (Auto) 0.9 (0-4) % Baso % (Auto) 0.4 (0-2) % Lymph # (Auto) 1.6 (1.2-4.9) X10*3/uL Hamblen # (Auto) 1.1 (0.1-1.2) X10*3/uL Eos # (Auto) 0.2 (0.0-0.4) X10*3/uL Baso # (Auto) 0.1 (0.0-0.2) X10*3/uL Abs Immat Gran (auto) 0.09 H (0.00-0.03) X10*3/uL Absolute Neuts (auto) 13.8 H (2.0-8.3) x10*3/uL Absolute Nucleated RBC 0.000 (0.0-0.012) X10*3/uL Nucleated RBC % (auto) 0.0 (0.0-0.2) /100WBC ESR 83 H (0-15) MM/HR PT 14.2 H (10.9-12.4) SEC INR 1.2 H (0.9-1.1) Sodium 138 (135-145) mmol/L Potassium 4.2 (3.3-5.1) mmol/L Chloride 105 (96-108) mmol/L Carbon Dioxide 26 (22-29) mmol/L Anion Gap 11 L (12-20) BUN 14 (9-16) mg/dL Creatinine 0.65 (0.5-1.4) mg/dL Estim Creat Clear Calc 117.6 Estimated GFR > 60 Random Glucose 109 (60-115) mg/dL Lactic Acid 2.3 H* (0.5-2.0) mmol/L Lactic Acid F/U @ 2Hr 0.8 (0.5-2.0) mmol/L Calcium 8.6 D (8.4-10.2) mg/dL Total Bilirubin 0.8 (0.0-1.0) mg/dL AST 29 (5-37) U/L ALT 6 (0-40) U/L Alkaline Phosphatase 92 (39-117) U/L C-Reactive Protein 16.91 H (< or = 0.50) mg/dL Total Protein 7.8 (6.5-8.0) g/dL Albumin 3.4 L (3.5-5.0) g/dL Urine Color Dark Yellow Urine Appearance Turbid Urine pH 5.5 (5.0-9.0) Ur Specific Gem 1.020 (1.005-1.025) Urine Protein 30 (1+) H (Neg-Trace) mg/dL Urine Glucose (UA) Negative (Negative) mg/dL Urine Ketones 80 (Negative) mg/dL Urine Blood Moderate (2+) H (Negative) Urine Nitrite Positive H (Negative) Ur Leukocyte Esterase Large (3+) H (Negative) Urine RBC 3-5 H (0-2) /HPF Urine WBC >50 H (0-5) /HPF Ur Squamous Epith Cells 3-5 (0-2) /HPF Urine Bacteria 3+ (None Seen) Hyaline Casts 3-5 (0-2) /LPF Independent Interpretation I performed an independent interpretation of an: CT Scan Interpretation: CT pelvis notable for 2 x 8 x 12cm phlegmon. Radiology Impression Discussion of test interpretation with radiology: I have reviewed the radiologist's reading. Radiologist Impression: CT/CT pelvis wo IV con IMPRESSION: 2 x 8 x 12 cm phlegmon, right gluteal region. Concerning subacute pathologic fracture, L4 vertebra superimposed infection cannot be excluded. External Record Review External record reviewed: Inpatient record, Office record and Outpatient record Prescription Management I considered prescription management with: Antibiotic Critical Care Time Critical Care Time Critical Care Time: Yes Total Critical Care Time: 45 Attestation: I have personally provided critical care time exclusive of time spent on separately billable procedures. Time includes review of lab data, radiology results, discussion with consultants, and monitoring for potential decompensation. Intervention performed as documented. Discharge Plan Discharge Clinical Impression: Sepsis, Abscess Patient Disposition: Admitted As Inpatient Print Language: Sudanese
--- NOTE | 2024-04-21 12:15 | PC.NURSE ---
pt is alert and oriented, skin slightly warm to the touch, pt is coming from [facility] for a abscess to the right buttock, pt does have an open and abscess that is oozing a copious amount of greenish puss/ foul order the surrounding area is red/tender to touch, pt does have a chronic bean in place and draining well, pt also has a very small abrasion like/skin tear to the right groin/hip area
[2024-04-21 12:19] LABS: MANUAL DIFF FLAG NO
[2024-04-21 12:20] LABS: Basophils Absolute Auto 0.1 X10*3/uL (0.0-0.2); Basophils Percent Auto 0.4 % (0-2); Eosinophils Absolute Auto 0.2 X10*3/uL (0.0-0.4); Eosinophils Percent Auto 0.9 % (0-4); Hematocrit 38.8 % (42.0-52.0); Hemoglobin 12.7 g/dl (14.0-18.0); Imm Gran Abs Auto 0.09 X10*3/uL (0.00-0.03); Imm Gran Pct Auto 0.5 % (0.0-0.4); Lymphocytes Absolute Auto 1.6 X10*3/uL (1.2-4.9); Lymphocytes Percent Auto 9.3 % (20-40); Mean Corpuscular HGB Conc 32.7 g/dl (31.0-36.0); Mean Corpuscular Hemoglobin 30.8 pg (27.0-33.0); Mean Corpuscular Volume 94.2 fL (80.0-98.0); Mean Platelet Volume 10.5 fL (9.4-12.4); Monocytes Absolute Auto 1.1 X10*3/uL (0.1-1.2); Monocytes Percent Auto 6.6 % (2-11); Neutrophils Absolute Auto 13.8 x10*3/uL (2.0-8.3); Neutrophils Percent Auto 82.3 % (45-73); Platelet Count 360 X10*3/uL (160-400); Red Blood Count 4.12 X10*6/uL (4.60-5.80); Red Cell Distribution Width 13.7 % (11.0-16.0); White Blood Count 16.8 X10*3/uL (4.8-10.8)
[2024-04-21 12:22] LABS: Appearance Urine Turbid; Color Urine Dark Yellow; Glucose Urine UA Negative (Negative); Leukocyte Esterase Urine Large (3+) (Negative); Nitrite Urine Positive (Negative); PH 5.5 (5.0-9.0); UMIC TRIGGER UACC YES; Urine Blood Moderate (2+) (Negative); Urine Ketones 80 mg/dL (Negative); Urine Protein 30 (1+) mg/dL (Neg-Trace)
[2024-04-21 12:28] LABS: INTERNATIONAL NORM RATIO 1.2 (0.9-1.1); Prothrombin Time 14.2 SEC (10.9-12.4)
[2024-04-21] MEDS: Acetaminophen 325 MG TABLET 975 MG PO (12:28)
[2024-04-21] MEDS: Hydrocortisone Sod Succ/PF 100 MG VIAL IVPUSH (12:28)
[2024-04-21] MEDS: Piperacillin Sodium/Tazobactam 3.375 GM in 0.9 % Sodium Chloride 50 ML IV ×2 (12:31→18:18)
[2024-04-21 12:33] LABS: Bacteria Urine 3+ (None Seen); UACC Culture Trigger YES; WBC Urine >50 /HPF (0-5)
[2024-04-21 12:46] LABS: Alanine Aminotransferase 6 U/L (0-40); Albumin Level 3.4 g/dL (3.5-5.0); Alkaline Phosphatase 92 U/L (39-117); Anion Gap 11 (12-20); Aspartate Amino Transferase 29 U/L (5-37); Bilirubin Total 0.8 mg/dL (0.0-1.0); Blood Urea Nitrogen 14 mg/dL (9-16); Calcium 8.6 mg/dL (8.4-10.2); Carbon Dioxide 26 mmol/L (22-29); Chloride 105 mmol/L (96-108); Creatinine Clr Calc Pharmacy 117.6; Estimated Glomerular Filt Rate > 60; Glucose Random 109 mg/dL (60-115); Lactic Acid 2.3 mmol/L (0.5-2.0); Potassium 4.2 mmol/L (3.3-5.1); Sodium 138 mmol/L (135-145); Total Protein 7.8 g/dL (6.5-8.0)
[2024-04-21] MEDS: Lactated Ringers 1,000 ML 999 ML IV (12:49)
[2024-04-21] MEDS: vancomycin/NS 2,000 MG/500 ML PLAST..BAG 250 MG IV (12:50)
--- OUTSIDE RECORDS SUMMARY | 2024-04-21 13:21 | XMS_ITS | Encounter Summary ---
Author Organization [facility] Address [address] [place] [address] Care Team Providers Care Corner Trimmer Operator Name Role Phone Trav Verdugo MD Primary Care Provider [phone] Encounter Details Date Type Department Care Team (Late st Contact Info) Description 04/03/[address] [facility] - Main Lab [address] [facility] [place] [address] Trav Verdugo MD [address] [place] [address] Chronic obstructive pulmonary disease, unspecified (CMS/HCC) Social History Tobacco Use Types Packs/Day Years Used Date Smoking Tobacco: Never Assessed Sex and Gender Information Value Date Recorded Sex Assigned at Not on file Gender Identity Not on file Sexual Orientation Not on file documented as of this encounter Plan of Treatment Not on file documented as of this encounter Procedures Procedure Name Priority Date/Time Associated Diagnosis Comments COMPLETE BLOOD COUNT Routine 04/03/2024 6:27 AM EST Chronic obstructive pulmonary disease, unspecified (CMS/HCC) BASIC METABOLIC PANEL Routine 04/03/2024 6:27 AM EST Chronic obstructive pulmonary disease, unspecified (CMS/HCC) documented in this encounter Results * (ABNORMAL) Basic metabolic panel (04/03/2024 6:27 AM EST) Sodium 138 133 - 145 mmol/L LAB CHEMISTRY METHOD 04/03/2024 12:56 PM EST [facility] Potassium 3.4(L) 3.5 - 5.5 mmol/L LAB CHEMISTRY METHOD 04/03/2024 12:56 PM EST [facility] Chloride 103 96 - 110 mmol/L LAB CHEMISTRY METHOD 04/03/2024 12:[address] [facility] CO2 28 21 - 32 mmol/L LAB CHEMISTRY METHOD 04/03/2024 12:[address] [facility] Anion Gap 7 3 - 11 LAB CHEMISTRY METHOD 04/03/2024 12:[address] [facility] Glucose 87 70 - 100 mg/dL LAB CHEMISTRY METHOD 04/03/2024 12:[address] [facility] BUN 17 5 - 25 mg/dL LAB CHEMISTRY METHOD 04/03/2024 12:[address] [facility] Creatinine 0.65(L) 0.70 - 1.30 mg/dL LAB CHEMISTRY METHOD 04/03/2024 12:[address] [facility] eGFR 99 >=60 mL/min/1. 73m2 LAB CHEMISTRY METHOD 04/03/2024 12:[address] [facility] Comment:Calculation based on the??Chronic Kidney Disease Epidemiology Collaboration (CKD-EPI) equation refit??without adjustment for race. BUN/Creatinine Ratio 26.2 LAB CHEMISTRY METHOD 04/03/2024 12:[address] [facility] Calcium 8.3(L) 8.5 - 10.5 mg/dL LAB CHEMISTRY METHOD 04/03/2024 12:[address] [facility] Blood Venous blood specimen / Unknown Venipuncture / Unknown 04/03/2024 6:27 AM EST 04/03/2024 11:21 AM EST Trav Verdugo MD LAB BLOOD ORDERABLES [facility] [address] [place] [address], * (ABNORMAL) Complete blood count (04/03/2024 6:27 AM EST) WBC 7.3 4.8 - 10.8 K/mcL LAB HEMETOLOGY METHOD 04/03/2024 11:[address] [facility] RBC 3.50(L) 4.50 - 5.50 M/mcL LAB HEMETOLOGY METHOD 04/03/2024 11:[address] [facility] Hemoglobin 10.7(L) 13.5 - 17.5 g/dL LAB HEMETOLOGY METHOD 04/03/2024 11:[address] [facility] Hematocrit 33.2(L) 42.0 - 54.0 % LAB HEMETOLOGY METHOD 04/03/2024 11:[address] [facility] MCV 96.2 79.0 - 98.0 FL LAB HEMETOLOGY METHOD 04/03/2024 11:[address] [facility] MCH 31.0 27.0 - 32.0 pcg LAB HEMETOLOGY METHOD 04/03/2024 11:[address] [facility] MCHC 32.2 32.0 - 37.0 g/dL LAB HEMETOLOGY METHOD 04/03/2024 11:[address] [facility] RDW 13.2 11.0 - 15.0 % LAB HEMETOLOGY METHOD 04/03/2024 11:[address] [facility] Platelets 287 130 - 400 K/mcL LAB HEMETOLOGY METHOD 04/03/2024 11:[address] [facility] MPV 11.4(H) 7.0 - 11.0 FL LAB HEMETOLOGY METHOD 04/03/2024 11:[address] [facility] NRBC 0.0 <1.0 % LAB HEMETOLOGY METHOD 04/03/2024 11:[address] [facility] NRBC Absolute 0.00 <0.10 K/mcL LAB HEMETOLOGY METHOD 04/03/2024 11:[address] [facility] Blood Venous blood specimen / Unknown Venipuncture / Unknown 04/03/2024 6:27 AM EST 04/03/2024 11:21 AM EST Trav Verdugo MD LAB BLOOD ORDERABLES [facility] ([facility]) [facility] [address] [place] [address], documented in this encounter Visit Diagnoses Diagnosis Chronic obstructive pulmonary disease, unspecified (CMS/HCC) documented in this encounter Care Teams Corner Trimmer Operator Relationship Specialty Start Date End Date Trav Verdugo MD [address] [place] [address] [address] [place] [address] PCP - General Geriatric Medicine 04/03/24 documented as of this encounter
--- OUTSIDE RECORDS SUMMARY | 2024-04-21 13:21 | XMS_ITS | Data Portability ---
Author Organization [place] [facility], [employer] Address [address] , [address] [place] [address] Care Team Providers Care Customs Compliance Manager Name Role Phone JANEE GREEN Referring Provider JANEE GREEN Primary Care Provider [phone] Assessment Encounter Date Assessment Date Assessment LastModified by Organization Details LastModified Time 03/28/2017 03/28/2017 The patient is suffering from mostly axial lumbar back pain which appears to be secondary to a combination of lumbar internal disc disruption of lumbar facet joint syndrome. The patient has undergone a lumbar medial branch rhizotomy in the past which resulted in significant improvement of his pain for over 12 months. His axial lumbar back pain also appears to be due to degenerative disc disease. His cervical spine pain appears to be secondary to his cervical degenerative disc disease and cervical spinal stenosis. The patient will be scheduled for diagnostic lumbar facet joint injections to determine what role his facets are currently playing in his axial back pain. [email or web address] Not available 03/28/2017 13:55:21 04/11/2017 04/11/2017 The patient underwent bilateral diagnostic facet joint injections of his L3-4, L4-5 and L5-S1 facet joints today. If he achieves and maintains greater than 80% improvement of his pain and function. He will be scheduled for an L2, L3, L4, L5 lumbar medial branches bilaterally. Starting on the most painful side. He was given a pain diary to track his pain for the next 4-7 hours. [email or web address] Not available 04/11/2017 16:44:49 Plan of Treatment Reminders Order Date Submit Date Provider Last Modified By Organization Details Last Modified Time Details Appointments None recorded . Lab None recorded . Referral None recorded . Procedures facet joint injectio n, lumbar (PROC) 018 03/28/19 18 [facility], [address] [place], [address], 8 15:08:48 Surgeries None recorded . Imaging None recorded . Medication Orders None recorded . Patient TargetsNo targets recorded. Patient InstructionsNo instructions recorded. Reason for Referral None Reported. Results Created Date Observation Date Name Description Value Unit Range Abnormal Flag Note LastModifiedBy Organization Detail LastModifiedTime 03/13/20 17 XR, chest , 2 view No observ ation record ed. codore Not Available 2016 11:08:41 03/13/20 17 MRI, lumba r spine , w/o contr ast No observ ation record ed. codore Not Available 2016 11:09:50 03/13/20 17 MRI, cervi mary spine , w/o contr ast No observ ation record ed. codore Not Available 2016 11:10:52 06/22/19 18 nerve condu ction study /EMG, lower extre mity (PROC ) No observ ation record ed. codore Not Available 2017 14:18:56 06/22/19 18 MRI, lumba r spine , w/o contr ast No observ ation record ed. codore Not Available 2017 14:20:32 Result Notes None recorded. Procedures Surgical History Date Name Laterality Status Provider Name and Address Organization Details Recorded Time 8 Lumbar Facet Joint Injection Under Fluoroscopy completed Florian Perkins [facility] 04/11/2017 16:56:46 Imaging Results Imaging Date Name Status LastModified by Organiz ation Details LastModified Time 03/13/2017 XR, chest, 2 view completed Information not available 03/13/2017 11:08:41 03/13/2017 MRI, lumbar spine, w/o contrast completed Information not available 03/13/2017 11:09:50 03/13/2017 MRI, cervical spine, w/o contrast completed Information not available 03/13/2017 11:10:52 06/21/2017 nerve conduction study/EMG, lower extremity (PROC) completed Information not available 06/21/2017 14:18:56 06/21/2017 MRI, lumbar spine, w/o contrast completed Information not available 06/21/2017 14:20:32 Procedure Notes None recorded. Medical Equipment None Reported. Allergies No known drug allergies Medications Name Sig Start Date Stop Date Status Note LastModified by Organization Details LastModified Time fluconazole 100 mg tablet 04/11 completed Not Available Not Available Not Available fluocinonide 0.05 % topical gel 04/11 completed Not Available Not Available Not Available prednisone 20 mg tablet active Not Available Not Available No t Available prednisone 5 mg tablet active Not Available Not Available No t Available hydrocodone 10 mg-acetaminop hen 325 mg tablet Take 1 tablet every 12 hours by oral route as needed for 30 days. 2017 active Not Available Not Available Not Available oxycodone-felicia taminophen 5 mg-325 mg tablet 04/11 completed Not Available Not Available Not Available alprazolam 0.5 mg tablet 04/11 completed Not Available Not Available Not Available prednisolone acetate 1 % eye drops,suspens ion 04/11 completed Not Available Not Available Not Available triamcinolone acetonide 0.1 % dental paste 04/11 completed Not Available Not Available Not Available simvastatin 20 mg tablet active Not Available Not Available Not Available diazepam 10 mg tablet 04/11 completed Not Available Not Available Not Available ibuprofen 600 mg tablet active Not Available Not Available No t Available escitalopram 10 mg tablet 04/11 completed Not Available Not Available Not Available escitalopram 20 mg tablet 04/11 completed Not Available Not Available Not Available duloxetine 30 mg capsule,delay ed release 04/11 completed Not Available Not Available Not Available Suprep Bowel Prep Kit 17.5 gram-3.13 gram-1.6 gram oral solution 04/11 completed Not Available Not Available Not Available Vitals Date Recorded Body height Body mass index (BMI) Body weight Provider Name and Address Organization Details Last Updated DateTime 03/28/2017 185.42 cm 25.1 kg/m2 58728.55 g Marina Posey [facility] 03/28/2017 13:34:46 Date Recorded Body height Body mass index (BMI) Body weight Heart rate Systolic blood pressure Diastolic blood pressure Provider Name and Address Organization Details Last Updated DateTime 8 185.42 cm 25.1 kg/m2 40434.5 5 g 82 /min 168 mm[Hg] 150 mm[Hg] Yovnne Serrano [facility] 8 15:31:47 Social History None recorded. Functional Status None recorded. Mental Status None recorded. Family History Nothing Reported. Medical History No medical history recorded. Past Encounters Encounter ID Performer Location Encounter Start Date Encounter Closed Date Diagnosis/Indication Diagnosis SNOMED-CT Code Diagnosis ICD10 Code Diagnosis Note [id number] Florian Perkins [address] [address] [place] [address] 03/28/2017 13:16:36 03/29/2017 08:58:34 Lumbosacral spondylosis without myelopathy 60396646 M47.817 Degenerati on of lumbar intervertebral disc 01433355 M51.36 [id number] Florian Perkins [address] [address] [place] [address] 04/11/2017 14:31:49 04/11/2017 16:59:22 Lumbosacral spondylosis without myelopathy 55870552 M47.817 Degenerati on of lumbar intervertebral disc 86650878 M51.36 Health Concerns Section Related Observation LastModified by Organization Detai ls LastModified Time None Recorded Concern Status LastModified by Organization Details LastModified Time None Recorded Advance Directives Directive None Recorded Payers Encounter Date Sequence Insurance Name Policy Number Policy [place] Covered Member ID [place] Member ID Guarantor Name 03/28/2017 1 [employer] (MEDICARE REPLACEMENT/A DVANTAGE - PPO) Adolfo Rizzo [id number] Adolfo Rizzo 04/11/2017 1 [employer] (MEDICARE REPLACEMENT/A DVANTAGE - PPO) Adolfo Rizzo [id number] Adolfo Rizzo Notes Date Note Type Note Provider Name and Address Organization Details Recorded Time 03/28/2017 text/html Adolfo is complaining of increasing lumbar back pain and bilateral buttock pain. Currently no pain is traveling into his lower extremities. His axial back pain is equal bilaterally. His lumbar back pain is worsened with activity and decreases at rest. His neck pain is not as severe as his lumbar back pain. His pain in the cervical spine radiates between both shoulder blades. No continuous weakness is noted in his upper or lower extremities. Florian londono [facility] 03/28/2017 13:56:10
--- OUTSIDE RECORDS SUMMARY | 2024-04-21 13:22 | XMS_ITS | Clinical Summary ---
Author Organization [address] [facility] Address [address] [place] [address] Phone Care Team Providers Care Survey Engineer Name Role Phone Trav Verdugo MD Primary Care Provider [phone] Encounters Date Type Department Care Team Description 04/03/2024 Lab Requisition [facility] Lab [address] [place] [address] Trav Verdugo MD Chronic obstructive pulmonary disease, unspecified (CMS/HCC) 03/27/2024 Lab Requisition [facility] Lab [address] [place] [address] Curt Brewster MD Chronic kidney disease, unspecified from Last 3 Months Social History Tobacco Use Types Packs/Day Years Used Date Smoking Tobacco: Never Assessed Sex and Gender Information Value Date Recorded Sex Assigned at Not on file Gender Identity Not on file Sexual Orientation Not on file Plan of Treatment Health Maintenance Due Date Last Done Comments Pneumococcal Vaccine: 65+ Ye ars (1 of 2 - PCV) 1956 DTaP,Tdap,and Td Vaccines (1 - Tdap) 1969 Zoster Vaccines (1 of 2) 2000 RSV Immunization Patients 60 + Years Old (1 - Risk 60-74 years 1-dose series) 2010 Abdominal Aortic Aneurysm (A AA) Screen 02/24/2022 Colorectal Cancer Screening: Colonoscopy 02/24/2022 Depression Screening 02/24/2022 Falls Risk Assessment 02/24/2022 Hepatitis C Screening 02/24/2022 Medicare Annual Wellness Visit 02/24/2022 Social Influencers of Health Screening 02/24/2022 COVID-19 Vaccine ( - 2023-2 5 season) 2023 Influenza Vaccine (#1) 2023 Cholesterol Screening (Lipid Panel) 03/30/2029 03/30/2024 HIB Vaccines Aged Out No longer eligi ble based on patient's age to complete this topic HPV Vaccines Aged Out No longer eligi ble based on patient's age to complete this topic Hepatitis A Vaccines Aged Out No long er eligible based on patient's age to complete this topic Hepatitis B Vaccines Aged Out No long er eligible based on patient's age to complete this topic IPV Vaccines Aged Out No longer eligi ble based on patient's age to complete this topic MMR Vaccines Aged Out No longer eligi ble based on patient's age to complete this topic Meningococcal ACWY Vaccine Aged Out N o longer eligible based on patient's age to complete this topic RSV Immunization Patients Un douglas 20 months Aged Out No longer eligible b ased on patient's age to complete this topic Varicella Vaccines Aged Out No longer eligible based on patient's age to complete this topic Procedures Procedure Name Priority Date/Time Associated Diagnosis Comments BASIC METABOLIC PANEL Routine 04/03/2024 6:27 AM EST Chronic obstructive pulmonary disease, unspecified (CMS/HCC) COMPLETE BLOOD COUNT Routine 04/03/2024 6:27 AM EST Chronic obstructive pulmonary disease, unspecified (CMS/HCC) THYROID STIMULATING HORMONE Routine 03/30/2024 5:38 AM EST Chronic kidney disease, unspecified HEMOGLOBIN A1C Routine 03/30/2024 5:38 AM EST Chronic kidney disease, unspecified VITAMIN B12 Routine 03/30/2024 5:38 AM EST Chronic kidney disease, unspecified LIPID PANEL WITH REFLEX TO DIRECT LDL Routine 03/30/2024 5:38 AM EST Chronic kidney disease, unspecified COMPREHENSIVE METABOLIC PANEL Routine 03/30/2024 5:38 AM EST Chronic kidney disease, unspecified COMPLETE BLOOD COUNT Routine 03/30/2024 5:38 AM EST Chronic kidney disease, unspecified from Last 3 Months Results * (ABNORMAL) Complete blood count (04/03/2024 6:27 AM EST) Only the most recent of2 resultswithin the time period is included. [facility] Signature WBC 7.3 4.8 - 10.8 K/mcL LAB HEMETOLOGY METHOD 04/03/2024 11:45 AM [facility] RBC 3.50(L) 4.50 - 5.50 M/mcL LAB HEMETOLOGY METHOD 04/03/2024 11:45 AM [facility] LAB Hemoglobin 10.7(L) 13.5 - 17.5 g/dL LAB HEMETOLOGY METHOD 04/03/2024 11:45 AM [facility] LAB Hematocrit 33.2(L) 42.0 - 54.0 % LAB HEMETOLOGY METHOD 04/03/2024 11:45 AM [facility] MCV 96.2 79.0 - 98.0 FL LAB HEMETOLOGY METHOD 04/03/2024 11:45 AM [facility] LAB MCH 31.0 27.0 - 32.0 pcg LAB HEMETOLOGY METHOD 04/03/2024 11:45 AM [facility] LAB MCHC 32.2 32.0 - 37.0 g/dL LAB HEMETOLOGY METHOD 04/03/2024 11:45 AM [facility] LAB RDW 13.2 11.0 - 15.0 % LAB HEMETOLOGY METHOD 04/03/2024 11:45 AM [facility] Platelets 287 130 - 400 K/mcL LAB HEMETOLOGY METHOD 04/03/2024 11:45 AM [facility] MPV 11.4(H) 7.0 - 11.0 FL LAB HEMETOLOGY METHOD 04/03/2024 11:45 AM [facility] LAB NRBC 0.0 <1.0 % LAB HEMETOLOGY METHOD 04/03/2024 11:45 AM [facility] LAB NRBC Absolute 0.00 <0.10 K/mcL LAB HEMETOLOGY METHOD 04/03/2024 11:45 AM [facility] Blood Venous blood specimen / Unknown Venipuncture / Unknown 04/03/2024 6:27 AM EST 04/03/2024 11:21 AM EST Trav Verdugo MD LAB BLOOD ORDERABLES [facility] [address] [place] [address], * (ABNORMAL) Basic metabolic panel (04/03/2024 6:27 AM EST) Sodium 138 133 - 145 mmol/L LAB CHEMISTRY METHOD 04/03/2024 12:56 PM [facility] Potassium 3.4(L) 3.5 - 5.5 mmol/L LAB CHEMISTRY METHOD 04/03/2024 12:56 PM [facility] Chloride 103 96 - 110 mmol/L LAB CHEMISTRY METHOD 04/03/2024 12:56 PM [facility] CO2 28 21 - 32 mmol/L LAB CHEMISTRY METHOD 04/03/2024 12:56 PM [facility] Anion Gap 7 3 - 11 LAB CHEMISTRY METHOD 04/03/2024 12:56 PM [facility] Glucose 87 70 - 100 mg/dL LAB CHEMISTRY METHOD 04/03/2024 12:56 PM [facility] BUN 17 5 - 25 mg/dL LAB CHEMISTRY METHOD 04/03/2024 12:56 PM [facility] Creatinine 0.65(L) 0.70 - 1.30 mg/dL LAB CHEMISTRY METHOD 04/03/2024 12:56 PM [facility] LAB eGFR 99 >=60 mL/min/1. 73m2 LAB CHEMISTRY METHOD 04/03/2024 12:56 PM [facility] Comment:Calculation based on the??Chronic Kidney Disease Epidemiology Collaboration (CKD-EPI) equation refit??without adjustment for race. BUN/Creatinine Ratio 26.2 LAB CHEMISTRY METHOD 04/03/2024 12:56 PM [facility] Calcium 8.3(L) 8.5 - 10.5 mg/dL LAB CHEMISTRY METHOD 04/03/2024 12:56 PM [facility] Blood Venous blood specimen / Unknown Venipuncture / Unknown 04/03/2024 6:27 AM EST 04/03/2024 11:21 AM EST Trav Verdugo MD LAB BLOOD ORDERABLES [facility] [address] [place] [address], * Lipid panel with reflex to direct LDL (03/30/2024 5:38 AM EST) Cholesterol 147 0 - 200 mg/dL LAB CHEMISTRY METHOD 03/30/2024 12:53 PM [facility] Triglycerides 85 0 - 150 mg/dL LAB CHEMISTRY METHOD 03/30/2024 12:53 PM [facility] HDL 51 >=40 mg/dL LAB CHEMISTRY METHOD 03/30/2024 12:53 PM [facility] LDL Calculated 79 0 - 100 mg/dL LAB CHEMISTRY METHOD 03/30/2024 12:53 PM [facility] VLDL Cholesterol Fazal 17 mg/dL LAB CHEMISTRY METHOD 03/30/2024 12:53 PM [facility] Non HDL Chol. (LDL+VLDL) 96 <145 mg/dL LAB CHEMISTRY METHOD 03/30/2024 12:53 PM [facility] Chol/HDL Ratio 2.9 0.0 - 4.4 LAB CHEMISTRY METHOD 03/30/2024 12:53 PM [facility] Blood Venous blood specimen / Unknown Venipuncture / Unknown 03/30/2024 5:38 AM EST 03/30/2024 11:09 AM EST Curt Brewster MD LAB BLOOD ORDERABLES Performing Organization Address City/[facility]/ZIP Co de Phone Number [facility] [address] [place] [address], * Thyroid stimulating hormone (03/30/2024 5:38 AM EST) [facility] TSH 0.64 0.40 - 4.00 mcIU/mL LAB CHEMISTRY METHOD 03/30/2024 12:33 PM EST [facility] Blood Venous blood specimen / Unknown Venipuncture / Unknown 03/30/2024 5:38 AM EST 03/30/2024 11:09 AM EST Curt Brewster MD LAB BLOOD ORDERABLES Performing Organization Address [facility] Co de Phone Number [facility] [address] [place] [address], * Hemoglobin A1c (03/30/2024 5:38 AM EST) [facility] Hemoglobin A1C 5.6 <6.5 % LAB CHEMISTRY METHOD 03/30/2024 1:51 PM EST [facility] Mean Bld Glu Estim. 114 mg/dL LAB CHEMISTRY METHOD 03/30/2024 1:51 PM EST [facility] Blood Venous blood specimen / Unknown Venipuncture / Unknown 03/30/2024 5:38 AM EST 03/30/2024 11:09 AM EST Curt Brewster MD LAB BLOOD ORDERABLES Performing Organization Address City/[facility] Co de Phone Number [facility] [address] [place] [address], * (ABNORMAL) Vitamin B12 (03/30/2024 5:38 AM EST) [facility] Vitamin B-12 1,196(H) 250 - 900 pcg/mL LAB CHEMISTRY METHOD 03/30/2024 12:53 PM [facility] Blood Venous blood specimen / Unknown Venipuncture / Unknown 03/30/2024 5:38 AM EST 03/30/2024 11:09 AM EST Curt Brewster MD LAB BLOOD ORDERABLES [facility] [address] [place] [address], * (ABNORMAL) Comprehensive metabolic panel (03/30/2024 5:38 AM EST) [facility] Sodium 139 133 - 145 mmol/L LAB CHEMISTRY METHOD 03/30/2024 12:53 PM [facility] Potassium 3.7 3.5 - 5.5 mmol/L LAB CHEMISTRY METHOD 03/30/2024 12:53 PM [facility] Chloride 105 96 - 110 mmol/L LAB CHEMISTRY METHOD 03/30/2024 12:53 PM [facility] CO2 25 21 - 32 mmol/L LAB CHEMISTRY METHOD 03/30/2024 12:53 PM [facility] Anion Gap 9 3 - 11 LAB CHEMISTRY METHOD 03/30/2024 12:53 PM [facility] Glucose 77 70 - 100 mg/dL LAB CHEMISTRY METHOD 03/30/2024 12:53 PM [facility] BUN 44(H) 5 - 25 mg/dL LAB CHEMISTRY METHOD 03/30/2024 12:53 PM [facility] Creatinine 1.34(H) 0.70 - 1.30 mg/dL LAB CHEMISTRY METHOD 03/30/2024 12:53 PM [facility] eGFR 56(L) >=60 mL/min/1. 73m2 LAB CHEMISTRY METHOD 03/30/2024 12:53 PM [facility] Comment:Calculation based on the??Chronic Kidney Disease Epidemiology Collaboration (CKD-EPI) equation refit??without adjustment for race. BUN/Creatinine Ratio 32.8 LAB CHEMISTRY METHOD 03/30/2024 12:53 PM [facility] Calcium 8.5 8.5 - 10.5 mg/dL LAB CHEMISTRY METHOD 03/30/2024 12:53 PM [facility] AST (SGOT) 17 10 - 42 unit/L LAB CHEMISTRY METHOD 03/30/2024 12:53 PM [facility] ALT (SGPT) 21 10 - 60 unit/L LAB CHEMISTRY METHOD 03/30/2024 12:53 PM [facility] Alkaline Phosphatase 59 42 - 121 unit/L LAB CHEMISTRY METHOD 03/30/2024 12:53 PM [facility] Total Protein 6.8 6.0 - 8.0 g/dL LAB CHEMISTRY METHOD 03/30/2024 12:53 PM [facility] Albumin 3.6 3.2 - 5.0 g/dL LAB CHEMISTRY METHOD 03/30/2024 12:53 PM [facility] Total Bilirubin 0.7 0.0 - 1.4 mg/dL LAB CHEMISTRY METHOD 03/30/2024 12:53 PM [facility] Blood Venous blood specimen / Unknown Venipuncture / Unknown 03/30/2024 5:38 AM EST 03/30/2024 11:09 AM EST Curt Brewster MD LAB BLOOD ORDERABLES [facility] [address] [place] [address], from Last 3 Months Care Teams Survey Engineer Relationship Specialty Start Date End Date Trav Verdugo MD [address] [facility] [address] [place] [address] PCP - General Geriatric Medicine 04/03/24
--- OUTSIDE RECORDS SUMMARY | 2024-04-21 13:22 | XMS_ITS | Data Portability ---
Author Organization [place], [id number]_SNE_ER_StVWomen Address [address] [place] [address] Care Team Providers Care Service Shop Foreman Name Role Phone MANI HAMMOND Seat Installer NELLIE HANNAH Neurologist MALENA GARDNER Pain Management STEFAN OLMOS Silk Screen Layout Drafter ANJEL HAWLEY Spinal Orthopedic Surgeon [facility] Primary Care Provider Assessment Encounter Date Assessment Date Assessment LastModified by Organization Details LastModified Time 02/06/2019 02/06/2019 ? memory - may need SLUMS or Mini-cog at future visit (if not previously addressed) [email or web address] Not available 02/09/2019 12:14:34 02/09/2019 02/09/2019 improving boil/infection soaks cont abx topicals/cover age [email or web address] Not available 02/09/2019 15:24:52 12/02/2019 12/02/2019 cpetoday needs AW visit in feb Today I reviewed in the office with patient the past medical history, the family history, the surgical history and social history (including tobacco use, alcohol use, exercise habits, and caffine use) in detail. Changes were made where necessary to the data that was previously in the chart. If all information that was previously in the chart was accurate, no changes were made. pt has been instructed to get high dose flu shot at the drug store since we do not have it in the office pt has been instructed to get shingrix at the drugstore if covered by their health plan needs pneumovax today and then utd on shots discussed advanced care plan with pt in the office today patient designated as HCR Herber Lamb pt has completed a living will-asked patient to give us a copy to add to their chart due for labs on chol and blood sugar-non fasting labs today refuses to do LDCT this year, will do it next year discussed quitting smoking has already tried meds 10 years offered pt chantix but said he has no desire to quit utd colon and psa Discussed with it with the patient that his dentist called to say that she was concerned about his memory. He denies getting lost, losing his keys, forgetting to pay bills etc. He does not think the memory is bad enough at this point to warrant further testing [email or web address] Not available 12/02/2019 14:53:43 10/10/2020 10/10/2020 check labs and urine rec f/u with neuro kenton suggest ER due to weakness and trouble ambulating-ref using for now needs to restart the prednisone kenton akaissar Not available 10/10/2020 13:12:56 Plan of Treatment Reminders Order Date Submit Date Provider Last Modified By Organization Details Last Modified Time Details Appointments None recorded. Lab CMP, serum or plasma 2019 020 [facility], [address], [address], [place], [address], 0 15:20:45 lipid panel, serum 2019 020 [facility], [address], [address], [place], [address], 0 15:21:30 lipid panel, serum 2019 021 [facility] ([employer]), [address], [place], [address], 1 05:04:20 CMP, serum or plasma 2019 021 [facility] ([facility]), [address], [place], [address], 1 05:04:20 HbA1c (hemoglobi n A1c), blood 2019 020 [facility], [address], [address], [place], [address], 0 15:22:52 PSA, serum or plasma 2019 021 [facility] ([employer]), [address] [facility], [place], [address], 1 05:04:23 CBC w/ auto diff 2020 021 [facility], [address], [address], [place], [address], 1 12:40:18 CMP, serum or plasma 2020 021 [facility], [address], [address], [place], [address], 1 12:40:15 TSH, serum or plasma 2020 021 [facility] ([facility]), [address] [place], [address], 1 12:40:19 erythrocyt e sedimentat ion rate by westergren method 2020 021 [facility] ([facility]), [address] [place], [address], 1 12:40:17 Referral referral to smoking quit line 2019 020 [facility] [place] [facility], [address] [facility], [place], [address], 0 15:45:14 Procedures None recorded. Surgeries None recorded. Imaging None recorded. Medication Orders Bactrim DS 800 mg-160 mg tablet 2018 019 [facility] [id number], [address], [address], 0 14:28:47 simvastati n 40 mg tablet 2019 [facility], [address], [place], [address], 1 12:40:43 ibuprofen 600 mg tablet 2019 020 [facility], [address], [place], [address], 0 14:55:28 Patient TargetsNo targets recorded. Patient Instructions Encounter Date Encounter Id Patient Instructions Last Modified By Organization Details Last Modified Time 12/02/2019 [id number] high cholesterol : care instructions [email or web address] Not available 12/02/2019 14:54:31 lung cancer screening eligibility assessment* [email or web address] Not available 12/25/2019 08:43:55 smoking cessatio n counseling, greater than 3 minutes up to 10 minutes* Not available 12/02/2019 15:04:49 10/10/2020 [id number] fatigue: care instructions akaissar Not available 10/10/2020 13:12:15 Reason for Referral Referral To Smoking Quit Maryjane e for Nicotine dependence Referring Physician: Paradise Stokes, Internal Medicine, Encounter Date: 12/02/2019 Results Created Date Observation Date Name Description Value Unit Range Abnormal Flag Note LastModifiedBy Organization Detail LastModifiedTime 02/04/2002/05/2019 lipid panel , serum cholesterol, total 221 mg/dL high Cherri l Range 125-2 00 MG/DL Adis able <200 MG/DL Borde rline 200-2 39 MG/DL Undes irabl e >/=24 0 MG/DL Not Available [facility] [address] [facility] [place], [address], 02/05/2019 01:00:44 02/04/2002/05/2019 lipid panel , serum triglyceride s 162 mg/dL 15-150 high Cherri l <150 MG/DL Borde rline -High 150-1 99 MG/DL High 200-4 99 MG/DL Very High >500 MG/DL Not Available [facility] [address] [facility], [place], [address], 02/05/2019 01:00:44 02/04/20 19 02/05/2019 lipid panel , serum HDL-choleste rol 59 mg/dL >40 normal Not Available [facility] [address] [facility], [place], [address], 02/05/2019 01:00:44 02/04/20 19 02/05/2019 lipid panel , serum LDL-choleste rol 130 mg/dL <130 high 1 YEAR: No Refer ence Range Estab lishe d >> 2-18 YEARS Adis able: <100 MG/DL Borde rline : 100-1 29 MG/DL Undes irabl e: >/=13 0 MG/DL >18 YEARS Adis able: <130 MG/DL Borde rline : 130-1 59 MG/DL Undes irabl e: >/=16 0 MG/DL Adis able Range <100 MG/DL for patie nts with Diabe aida or CHD <70 MG/DL for Diabe tic patie nts with known heart disea se. Not Available [facility] [place] [facility] [address] [facility], [place], [address], 02/05/2019 01:00:44 02/04/2002/05/2019 lipid panel , serum chol/HDLC ratio 3.75 (calc ) <4.98 normal Not Available [facility], [place], [address], 02/05/2019 01:00:44 02/04/2002/05/2019 CMP, serum or plasm a sodium 143 mmol/ L 136-14 5 normal Not Available [facility] [place] [facility] [address] [facility], [place], [address], 02/05/2019 01:00:45 02/04/2002/05/2019 CMP, serum or plasm a potassium 4.2 mmol/ L 3.5-5. 5 normal Not Available [facility] [address] [facility], [place], [address], 02/05/2019 01:00:45 02/04/2002/05/2019 CMP, serum or plasm a chloride 105 mmol/ L 98-110 normal Not Available [facility] [place] [address] [facility], [place], [address], 02/05/2019 01:00:45 02/04/2002/05/2019 CMP, serum or plasm a carbon dioxide 24 mmol/ L 20-29 normal Not Available [facility] [place] [address] [facility] [address] [facility], [place], [address], 02/05/2019 01:00:45 02/04/2002/05/2019 CMP, serum or plasm a glucose 99 mg/dL 65-99 normal Not Available [facility] [place] [address] [facility], [place], [address], 02/05/2019 01:00:45 02/04/2002/05/2019 CMP, serum or plasm a urea nitrogen (BUN) 15 mg/dL 8-26 normal Not Available [facility] [address] [facility], [place], [address], 02/05/2019 01:00:45 02/04/2002/05/2019 CMP, serum or plasm a creatinine 0.91 mg/dL 0.80-1 .50 normal Not Available [facility] [address] [facility] [address] [facility] [address], [place], [address], 02/05/2019 01:00:45 02/04/2002/05/2019 CMP, serum or plasm a GFR non 86 mL/mi n/1.7 3_M2 >60 normal Eithe r of the follo wing must be prese nt for >= 3 month s to be Chron ic Kidne y Disea se: -GFR less than 60 for >=3 month s -Albu min to Creat inine ratio >=30 mg/g or other marke rs of kidne y chapitoag e An estim ated GFR chron icall y in the range of 60-89 is categ orize d as mildl y decre ased, which corre spond s to Stage G2 CKD. CKD-E PI equat ion used to estim ate GFR. Not Available [employer] [facility] [address], [place], [address], 02/05/2019 01:00:45 02/04/2002/05/2019 CMP, serum or plasm a GFR 100 mL/mi n/1.7 3_M2 >60 normal Eithe r of the follo wing must be prese nt for >= 3 month s to be Chron ic Kidne y Disea se: -GFR less than 60 for >=3 month s -Albu min to Creat inine ratio >=30 mg/g or other marke rs of ryder y chapitoag e An estim ated GFR chron icall y in the range of >/= 90 is categ orize d as cherri l or high, which corre spond s to Stage G1 CKD. CKD-E PI equat ion used to estim ate GFR. Not Available [employer] [facility] [address], [place], [address], 02/05/2019 01:00:45 02/04/2002/05/2019 CMP, serum or plasm a calcium 9.4 mg/dL 8.4-10 .5 normal Not Available [employer] [facility] [address] [facility] [address], [place], [address], 02/05/2019 01:00:45 02/04/2002/05/2019 CMP, serum or plasm a bilirubin, total 1.1 mg/dL 0.1-1. 2 normal Not Available [employer] [facility] [address], [place], [address], 02/05/2019 01:00:45 02/04/2002/05/2019 CMP, serum or plasm a protein, total 6.5 g/dL 6.0-8. 3 normal Not Available [facility] [facility] [address], [place], [address], 02/05/2019 01:00:45 02/04/2002/05/2019 CMP, serum or plasm a albumin 4.0 gm/dL 3.5-5. 0 normal Not Available [facility] [address] [facility] [address] [facility] [address], [place], [address], 02/05/2019 01:00:45 02/04/2002/05/2019 CMP, serum or plasm a alkaline phosphatase 73 U/L 38-126 normal Not Available [employer] [facility] [address] [facility] [employer] [employer] [facility] [address], [place], [address], 02/05/2019 01:00:45 02/04/2002/05/2019 CMP, serum or plasm a alanine transaminase 18 U/L 11-58 normal Not Available [facility] [employer] [facility] [employer] [facility] [address], [place], [address], 02/05/2019 01:00:45 02/04/2002/05/2019 CMP, serum or plasm a aspartate transaminase 20 U/L 17-59 normal Not Available [facility] [employer] [facility] [address] [facility] [address] [employer] [facility], [place], [address], 02/05/2019 01:00:45 02/04/2002/05/2019 CMP, serum or plasm a comment If resul t of rando m gluco se is > or = 200 or if resul t of fasti ng gluco se is > 125 confi rm Diabe aida Melli tus diagn osis with secon d gluco se on a diffe ren day. Not Available [facility] [place] [facility] [address] [facility] [address], [place], [address], 02/05/2019 01:00:45 02/04/20 19 02/05/2019 PSA, serum or plasm a PSA 1.02 NG/mL 0.00-4 .00 normal Not Available [facility] [facility] [employer] [facility] [address] [facility], [place], [address], 02/05/2019 01:00:46 02/04/20 19 02/05/2019 PSA, serum or plasm a comment The FDA requi res that the metho d used for the PSA assay be repor paola to the physi chet. Value s obtai sanjay with diffe rent assay metho ds shoul d not be used inter ferrer eably . Our lab uses the [facility]PT metho d which is appro elena for use as an aid in the detec tion of prost ate cance r when used in conju nctio n with a digit al recta l exam. The [facility] XPT PSA assay is also indic ated for the seria l measu remen t of PSA to aid in the progn osis and manag ement of prost ate cance r patie nts. [facility] PSA value s shoul d be inter prete d using the AUA guide lines of rectabatha kaiser as detec table or risin g value post- radic al prost atect sharri that is >= 0.2 ng/mL with a secon d confi rmato ry level of >= 0.2 ng/mL . Not Available [employer] [facility] [address] [facility] [address], [place], [address], 02/05/2019 01:00:46 02/04/20 19 02/03/2019 hemog lobin A1C, finge rstic k HbA1C 6.1 Not Available [facility] - In Office Orders (For Internal Use Only) [address] [place], [address], 02/03/2019 13:24:54 02/04/2002/03/2019 hemog lobin A1C, finge rstic k Control positi ve Not Available [facility] - In Office Orders (For Internal Use Only) [address] [place], [address], 02/03/2019 13:24:54 12/02/19 20 12/03/2019 lipid panel , serum cholesterol, total 231 mg/dL high Cherri l Range 125-2 00 MG/DL Adis able <200 MG/DL Borde rline 200-2 39 MG/DL Undes irabl e >/=24 0 MG/DL Not Available [facility] [place] [facility] [address] [employer] [employer] [facility], [place], [address], 12/03/2019 21:43:42 12/02/1912/03/2019 lipid panel , serum triglyceride s 307 mg/dL 15-150 high Cherri l <150 MG/DL Borde rline -High 150-1 99 MG/DL High 200-4 99 MG/DL Very High >500 MG/DL Not Available [facility] [place] [facility] [address] [facility] [employer] [facility], [place], [address], 12/03/2019 21:43:42 12/02/1912/03/2019 lipid panel , serum HDL-choleste rol 49 mg/dL >40 normal Not Available [facility] [place] [facility] [address] [facility], [place], [address], 12/03/2019 21:43:42 12/02/1912/03/2019 lipid panel , serum LDL-choleste rol 121 mg/dL <130 normal 1 YEAR: No Refer ence Range Estab lishe d >> 2-18 YEARS Adis able: <100 MG/DL Borde rline : 100-1 29 MG/DL Undes irabl e: >/=13 0 MG/DL >18 YEARS Adis able: <130 MG/DL Borde rline : 130-1 59 MG/DL Undes irabl e: >/=16 0 MG/DL Adis able Range <100 MG/DL for patie nts with Diabe aida or CHD <70 MG/DL for Diabe tic patie nts with known heart disea se. Not Available [facility] [place] [facility] [address] [employer] [facility], [place], [address], 12/03/2019 21:43:42 12/02/1912/03/2019 lipid panel , serum chol/HDLC ratio 4.71 (calc ) <4.98 normal Not Available [facility] [place] [facility] [address] [facility] [employer] [facility], [place], [address], 12/03/2019 21:43:42 12/02/1912/03/2019 CMP, serum or plasm a sodium 137 mmol/ L 136-14 5 normal Not Available [facility] [place] [address] [facility] [facility], [place], [address], 12/03/2019 21:43:43 12/02/1912/03/2019 CMP, serum or plasm a potassium 3.9 mmol/ L 3.5-5. 5 normal Not Available [facility] [place] [address] [facility] [address] [facility], [place], [address], 12/03/2019 21:43:43 12/02/1912/03/2019 CMP, serum or plasm a chloride 103 mmol/ L 98-110 normal Not Available [facility] [address] [facility], [place], [address], 12/03/2019 21:43:43 12/02/1912/03/2019 CMP, serum or plasm a carbon dioxide 20 mmol/ L 20-29 normal Not Available [facility] [place] [address] [facility] [employer] [facility], [place], [address], 12/03/2019 21:43:43 12/02/1912/03/2019 CMP, serum or plasm a glucose 121 mg/dL 65-99 high Not Available [facility] [place] [address] [facility] [address] [facility], [place], [address], 12/03/2019 21:43:43 12/02/1912/03/2019 CMP, serum or plasm a urea nitrogen (BUN) 14 mg/dL 8-26 normal Not Available [facility] [place] [address] [facility] [address] [facility], [place], [address], 12/03/2019 21:43:43 12/02/1912/03/2019 CMP, serum or plasm a creatinine 1.00 mg/dL 0.80-1 .50 normal Not Available [facility] [place] [address] [employer] [facility], [place], [address], 12/03/2019 21:43:43 12/02/1912/03/2019 CMP, serum or plasm a GFR non 76 mL/mi n/1.7 3_M2 >60 normal Eithe r of the follo wing must be prese nt for >= 3 month s to be Chron ic Kidne y Disea se: -GFR less than 60 for >=3 month s -Albu min to Creat inine ratio >=30 mg/g or other marke rs of kidne y damag e An estim ated GFR chron icall y in the range of 60-89 is categ orize d as mildl y decre ased, which corre spond s to Stage G2 CKD. CKD-E PI equat ion used to estim ate GFR. Not Available [employer] [facility] [address], [place], [address], 12/03/2019 21:43:43 12/02/1912/03/2019 CMP, serum or plasm a GFR 88 mL/mi n/1.7 3_M2 >60 normal Eithe r of the follo wing must be prese nt for >= 3 month s to be Chron ic Kidne y Disea se: -GFR less than 60 for >=3 month s -Albu min to Creat inine ratio >=30 mg/g or other marke rs of kidne y damag e An estim ated GFR chron icall y in the range of 60-89 is categ orize d as mildl y decre ased, which corre spond s to Stage G2 CKD. CKD-E PI equat ion used to estim ate GFR. Not Available [facility] [employer] [facility] [address], [place], [address], 12/03/2019 21:43:43 12/02/1912/03/2019 CMP, serum or plasm a calcium 9.4 mg/dL 8.4-10 .5 normal Not Available [facility] [facility] [address], [place], [address], 12/03/2019 21:43:43 12/02/1912/03/2019 CMP, serum or plasm a bilirubin, total 0.9 mg/dL 0.1-1. 2 normal Not Available [facility] [facility] [address] [facility] [address] [facility], [place], [address], 12/03/2019 21:43:43 12/02/1912/03/2019 CMP, serum or plasm a protein, total 6.3 g/dL 6.0-8. 3 normal Not Available [facility], [place], [address], 12/03/2019 21:43:43 12/02/1912/03/2019 CMP, serum or plasm a albumin 3.8 gm/dL 3.5-5. 0 normal Not Available [facility] [place] [address] [facility], [place], [address], 12/03/2019 21:43:43 12/02/1912/03/2019 CMP, serum or plasm a alkaline phosphatase 67 U/L 38-126 normal Not Available [employer] [place] [address] [facility] [employer] [facility], [place], [address], 12/03/2019 21:43:43 12/02/1912/03/2019 CMP, serum or plasm a alanine transaminase 11 U/L 11-58 normal Not Available [facility] [employer] [employer] [facility], [place], [address], 12/03/2019 21:43:43 12/02/1912/03/2019 CMP, serum or plasm a aspartate transaminase 15 U/L 17-59 low Not Available [employer] [facility] [address] [facility], [place], [address], 12/03/2019 21:43:43 12/02/1912/03/2019 CMP, serum or plasm a comment If resul t of rando m gluco se is > or = 200 or if resul t of fasti ng gluco se is > 125 confi rm Diabe aida Melli tus diagn osis with secon d gluco se on a diffe t day. Not Available [facility] [place] [facility] [address] [facility] [address], [place], [address], 12/03/2019 21:43:43 12/02/19 20 12/03/2019 HbA1c (hemo globi n A1c), blood hemoglobin A1C 5.9 % <5.7% high < 5.7 % Decre ased risk of diabe aida 5.7 - 6.4 % Incre ased risk of diabe aida > or = 6.5 % Consi stent with diabe aida >> These Refer ence Inter vals are suppo rted by the branden rdz of Medic al Care in Diabe aida publi shed in 2016 in the Diabe aida Care, the Journ al of the Ameri can Diabe aida Assoc iatio n. Care must be taken when inter preti ng Hemog lobin A1C resul ts from patie nts with hemog lobin varia nts/a bnorm aliti es. False ly eleva paola or decre ased resul ts may occur . Not Available [facility] [place] [facility] [address] [facility] [address], [place], [address], 12/03/2019 21:43:44 12/02/19 20 12/03/2019 HbA1c (hemo globi n A1c), blood estimated average glucose (EAG) 123 mg/dL _(mary c) Not Available [facility] [place] [facility] [address] [facility] [address], [place], [address], 12/03/2019 21:43:44 10/11/19 21 10/12/2020 COMPR EHENS ALONSO METAB OLIC PANEL glucose 107 mg/dL 65-99 high Fasti ng refer ence inter chelsey For someo ne witho ut known diabe aida, a gluco se value betwe en 100 and 125 mg/dL is consi stent with predi abete s and shoul d be confi rmed with a follo w-up test. Not Available [facility] [address] [facility] [place], [address], 10/12/2020 12:40:15 10/11/19 21 10/12/2020 COMPR EHENS ALONSO METAB OLIC PANEL urea nitrogen (BUN) 8 mg/dL 7-25 normal Not Available [facility] [address] [facility], [address], 10/12/2020 12:40:15 10/11/19 21 10/12/2020 COMPR EHENS ALONSO METAB OLIC PANEL creatinine 0.87 mg/dL 0.70-1 .25 normal For patie nts >49 years of age, the refer ence limit for Creat inine is appro ximat mateo 13% highe r for peopl e ident ified as Afric an-Am tim n. Not Available [facility] [address] [place], [address], 10/12/2020 12:40:15 10/11/19 21 10/12/2020 COMPR EHENS ALONSO METAB OLIC PANEL eGFR non-afr. chilean 88 mL/mi n/1.7 3m2 > or = 60 normal Not Available [facility] [address] [place], [address], 10/12/2020 12:40:15 10/11/19 21 10/12/2020 COMPR EHENS ALONSO METAB OLIC PANEL eGFR 102 mL/mi n/1.7 3m2 > or = 60 normal Not Available [facility] [address] [facility] [place], [address], 10/12/2020 12:40:15 10/11/19 21 10/12/2020 COMPR EHENS ALONSO METAB OLIC PANEL BUN/creatini ne ratio NOT APPLIC ABLE (calc ) 6-22 Not Available [facility] [address] [place], [address], 10/12/2020 12:40:15 10/11/19 21 10/12/2020 COMPR EHENS ALONSO METAB OLIC PANEL sodium 134 mmol/ L 135-14 6 low Not Available [facility] [address] [place], [address], 10/12/2020 12:40:15 10/11/19 21 10/12/2020 COMPR EHENS ALONSO METAB OLIC PANEL potassium 3.3 mmol/ L 3.5-5. 3 low Not Available [facility] [address] [place], [address], 10/12/2020 12:40:15 10/11/19 21 10/12/2020 COMPR EHENS ALONSO METAB OLIC PANEL chloride 96 mmol/ L 98-110 low Not Available [facility] [address] [place], [address], 10/12/2020 12:40:15 10/11/19 21 10/12/2020 COMPR EHENS ALONSO METAB OLIC PANEL carbon dioxide 29 mmol/ L 20-32 normal Not Available [facility] [address] [place], [address], 10/12/2020 12:40:15 10/11/19 21 10/12/2020 COMPR EHENS ALONSO METAB OLIC PANEL calcium 8.8 mg/dL 8.6-10 .3 normal Not Available [facility] [address] [place], [address], 10/12/2020 12:40:15 10/11/19 21 10/12/2020 COMPR EHENS ALONSO METAB OLIC PANEL protein, total 6.0 g/dL 6.1-8. 1 low Not Available [facility] [address] [place], [address], 10/12/2020 12:40:15 10/11/19 21 10/12/2020 COMPR EHENS ALONSO METAB OLIC PANEL albumin 2.9 g/dL 3.6-5. 1 low Not Available [employer] [facility] [address] [facility] [place], [address], 10/12/2020 12:40:15 10/11/19 21 10/12/2020 COMPR EHENS ALONSO METAB OLIC PANEL globulin 3.1 g/dL_ (calc ) 1.9-3. 7 normal Not Available [facility] [address] [facility], [address], 10/12/2020 12:40:15 10/11/19 21 10/12/2020 COMPR EHENS ALONSO METAB OLIC PANEL albumin/glob ulin ratio 0.9 (calc ) 1.0-2. 5 low Not Available [employer] [facility] [address] [facility], [address], 10/12/2020 12:40:15 10/11/19 21 10/12/2020 COMPR EHENS ALONSO METAB OLIC PANEL bilirubin, total 0.7 mg/dL 0.2-1. 2 normal Not Available [facility] [employer] [facility] [address] [facility] [place], [address], 10/12/2020 12:40:15 10/11/19 21 10/12/2020 COMPR EHENS ALONSO METAB OLIC PANEL alkaline phosphatase 99 U/L 35-144 normal Not Available [facility] [employer] [facility] [address] [facility], [address], 10/12/2020 12:40:15 10/11/19 21 10/12/2020 COMPR EHENS ALONSO METAB OLIC PANEL AST 19 U/L 10-35 normal Not Available [facility] [employer] [facility] [address] [place], [address], 10/12/2020 12:40:15 10/11/19 21 10/12/2020 COMPR EHENS ALONSO METAB OLIC PANEL ALT 13 U/L 9-46 normal Not Available [employer] [facility] [address] [facility], [address], 10/12/2020 12:40:15 10/11/19 21 10/12/2020 SED RATE BY MODIF IED WESTE RGREN sed rate by modified westergren TNP TEST NOT PERFO RMED The speci men excee ds stabi lity for the test reque sted. Not Available [facility] [address] [facility], [address], 10/12/2020 12:40:17 10/11/19 21 10/12/2020 CBC (INCL UDES DIFF/ PLT) white blood cell count 10.6 thous and/u L 3.8-10 .8 normal Not Available [facility] [address] [place], [address], 10/12/2020 12:40:18 10/11/19 21 10/12/2020 CBC (INCL UDES DIFF/ PLT) red blood cell count 3.84 antwon on/uL 4.20-5 .80 low Not Available [facility] [address] [place], [address], 10/12/2020 12:40:18 10/11/19 21 10/12/2020 CBC (INCL UDES DIFF/ PLT) hemoglobin 12.1 g/dL 13.2-1 7.1 low Not Available [facility] [address] [facility], [address], 10/12/2020 12:40:18 10/11/19 21 10/12/2020 CBC (INCL UDES DIFF/ PLT) hematocrit 37.4 % 38.5-5 0.0 low Not Available [facility] [address] [place], [address], 10/12/2020 12:40:18 10/11/19 21 10/12/2020 CBC (INCL UDES DIFF/ PLT) MCV 97.4 fL 80.0-1 00.0 normal Not Available [facility] [address] [place], [address], 10/12/2020 12:40:18 10/11/19 21 10/12/2020 CBC (INCL UDES DIFF/ PLT) MCH 31.5 pg 27.0-3 3.0 normal Not Available [facility] [address] [place], [address], 10/12/2020 12:40:18 10/11/1910/12/2020 CBC (INCL UDES DIFF/ PLT) MCHC 32.4 g/dL 32.0-3 6.0 normal Not Available [facility] [address] [place], [address], 10/12/2020 12:40:18 10/11/19 21 10/12/2020 CBC (INCL UDES DIFF/ PLT) RDW 12.1 % 11.0-1 5.0 normal Not Available [facility] [address] [place], [address], 10/12/2020 12:40:18 10/11/19 21 10/12/2020 CBC (INCL UDES DIFF/ PLT) platelet count 521 thous and/u L 140-40 0 high Not Available [facility] [address] [place], [address], 10/12/2020 12:40:18 10/11/1910/12/2020 CBC (INCL UDES DIFF/ PLT) MPV 12.6 fL 7.5-12 .5 high Not Available [facility] [address] [place], [address], 10/12/2020 12:40:18 10/11/19 21 10/12/2020 CBC (INCL UDES DIFF/ PLT) absolute neutrophils 7250 cells /uL 1500-7 800 normal Not Available [facility] [address], [place], [address], 10/12/2020 12:40:18 10/11/19 21 10/12/2020 CBC (INCL UDES DIFF/ PLT) absolute lymphocytes 1791 cells /uL 850-39 00 normal Not Available [facility] [address], [place], [address], 10/12/2020 12:40:18 10/11/19 21 10/12/2020 CBC (INCL UDES DIFF/ PLT) absolute monocytes 1410 cells /uL 200-95 0 high Not Available [facility] [address], [place], [address], 10/12/2020 12:40:18 10/11/19 21 10/12/2020 CBC (INCL UDES DIFF/ PLT) absolute eosinophils 74 cells /uL 15-500 normal Not Available [facility] [address], [place], [address], 10/12/2020 12:40:18 10/11/19 21 10/12/2020 CBC (INCL UDES DIFF/ PLT) absolute basophils 74 cells /uL 0-200 normal Not Available [facility] [address], [place], [address], 10/12/2020 12:40:18 10/11/19 21 10/12/2020 CBC (INCL UDES DIFF/ PLT) neutrophils 68.4 % normal Not Available [facility] [address], [place], [address], 10/12/2020 12:40:18 10/11/19 21 10/12/2020 CBC (INCL UDES DIFF/ PLT) lymphocytes 16.9 % normal Not Available [facility] [address], [place], [address], 10/12/2020 12:40:18 10/11/19 21 10/12/2020 CBC (INCL UDES DIFF/ PLT) monocytes 13.3 % normal Not Available [facility] [address] [place], [address], 10/12/2020 12:40:18 10/11/19 21 10/12/2020 CBC (INCL UDES DIFF/ PLT) eosinophils 0.7 % normal Not Available [facility] [address] [place], [address], 10/12/2020 12:40:18 10/11/19 21 10/12/2020 CBC (INCL UDES DIFF/ PLT) basophils 0.7 % normal Not Available [facility] [address] [place], [address], 10/12/2020 12:40:18 10/11/19 21 10/12/2020 TSH W/REF ROSE TO FT4 TSH w/reflex to FT4 2.07 mIU/L 0.40-4 .50 normal Not Available [facility] [address] [place], [address], 10/12/2020 12:40:19 05/29/19 20 04/27/2019 Perip heral Arter y Disea se (PAD) Self Asses sment Tool* No observ ation record ed. akaissar Not Available 2019 12:23:45 11/16/1911/15/2020 MRI, lumba r spine , w/o contr [facility] EXAMIN ATION: MRI LUMBAR SPINE WO/C - ACC #: [id number] CPT: 04124 Mod: RIS Order: [id number] ([facility]) (0029) HIS Order: [id number] D [id number] STARTE D: Nov 15 2020 5:42AM COMPLE PAOLA: Nov 15 2020 5:47AM TECH INITIA LS: [id number] FULL RESULT : INDICA TION: Low back pain, trauma , lower extrem ity weakne ss. COMPAR [place]: MRI lumbar spine noncon trast techni que November 08, 2016. PROCED URE: MR lumbar spine noncon trast techni que November 15, 2020 at 0533 hours. FINDIN GS: L4 burst fractu re. Vertic al fractu re plane separa ting the anteri or third from the remain douglas of the L4 verteb ral body, approx imatel y 5 mm anteri or displa cement . Disrup paola desktop publisher ior cortic al margin . Hetero geneou s abnorm al marrow signal . Mild canal compro mise. Downwa rd displa cement of the L1 verteb ral body superi or endpla te. Thin underl araceli bandli ke bone marrow edema. Approx imatel y 15% loss of L1 verteb ral body height . No subdur al or epidur al hemato ma. At L5-S1 partia l loss of disc T2 signal . Preser vation of normal disc height . Normal canal size. Normal facet joints . Normal forami na. At L4-L5 partia l loss of disc T2 signal . Mild desktop publisher ior loss of disc height . Normal canal size. Normal facet joints . At L3-L4 mild spondy losis. Mild centra l canal stenos is. Normal facet joints . Normal forami na. At L2-L3 disc T2 signal loss. Normal disc height . Normal canal size. Normal facet joints . Normal forami na. At L1-L2 mild disc T2 signal loss. No other abnorm ality. Atroph ic parave rtebra l muscul ature. Normal iliops oas muscul ature. Intact sacrum . Normal conus and cauda equina . IMPRES TIARA: 1. Edemat ous L4 verteb ral body burst fractu re. Mild retrop ulsion , mild canal compro mise. Approx imatel y 50% loss of L4 verteb ral body height . 2. Mild L1 compre ssion fractu re, small band bone marrow edema. ELECTR ONICAL LY SIGNED BY: HAIDER WILLIS M.D. Nov 15 2020 10:36A M Dictat ed: Nov 15 2020 7:48AM BBKSAL Transc ribed: Nov 15 2020 8:17AM nosbor Disper sed: Nov 15 2020 10:36A M Attend ing Dr: MARIO ALBERTO BARRY Admitt ing Dr: BRISA ROBERTS, [place] Primar y Care: GURWINDER GREEN onhi Doctor (s): CHARLENE CRUZ SIGNED BY: HAIDER WILLIS M.D.Au g 2020 10:36A M lower extrem ity weakne ss with back pain^ ssebo [facility] [address], [place], [address], 11/15/2020 22:00:16 02/03/20 21 01/31/2021 XR, lumbo sacra l spine , [address] [facility] EXAMIN ATION: SPINE LUMBAR 2 OR 3 VIEWS - ACC #: [id number] CPT: 69646 Mod: RIS Order: [id number] ([facility]) (0081) HIS Order: [id number] D [id number] STARTE D: Jan 31 2021 3:20PM COMPLE PAOLA: Jan 31 2021 3:40PM TECH INITIA LS: [id number] FULL RESULT : EXAM: Lumbar spine INDICA TION: fractu re of lumbar spine; follow -up COMPAR [place]: 021, outsid e MRI of the lumbar spine 2020 TECHNI QUE: 3 images includ ing spot view of the lumbos acral juncti on. FINDIN GS: Bones are demine ralize d. There are 5 non-ri b-bear ing lumbar -type verteb ral bodies . Stable severe loss of height and fractu re deform ity of the L4 verteb ral body. Bony neural forami nal narrow ing at L4-L5 Stable mild concav ity of the superi or endpla te of L1 with Schmor l's node format ion. Straig htenin g of lumbar lordos is. Diffus e facet hypert rophy. Mild degene rative disc height loss at L5-S1. Disc height s are otherw ise mainta ined. Soft tissue s unrema rkable . Aortic athero sclero tic calcif icatio ns noted. IMPRES TIARA: Stable fractu re deform ity with severe height loss at L4. Stable mild anteri or compre ssion deform ity of the superi or endpla te L1. ELECTR ONICAL LY SIGNED BY: SHAWN SMITH M.D. Feb 02 2021 1:44PM Dictat ed: Feb 02 2021 1:37PM SK1 Transc ribed: Feb 02 2021 1:37PM Disper sed: Feb 02 2021 1:44PM Attend ing Dr: KASEY ROJAS Admitt ing Dr: KASEY ROJAS Primar y Care: Additi onal Doctor (s): ELECTR ONICAL LY SIGNED BY: SHAWN SMITH M.D.N ov 2020 1:44PM pt in waitin g room^ [email or web address] [facility] [address], [place], [address], 02/07/2021 09:53:32 Result Notes None recorded. Problems Name Problem SNOMED Code Status Onset Date Resolution Date Notes Provider Name and Address Organization Details Recorded Time External hemorrho ids 94288577 Active 2012 Nereyda Green MD [address], [facility], [address] , [place] [facility] 7 15:37:14 Dyspnea 695912916 Active 2012 Nereyda Green MD [address], [address], [place], [address] , [place] [facility] [place] 7 15:37:13 Dysuria 61677620 Completed 201310/08/2018 Paradise Stokes MD [address], [address], [place], [address] , [place] [facility] [place] 9 14:22:37 Influenz a vaccine needed 61190953480 06 Completed 201204/12/2017 Sharonda Harrison RN null, [place] - [facility] 8 09:27:00 Hyperlip idemia 97891316 Active 2011 Nereyda Green MD [address], [address], [place], [address] , [place] [facility] 7 15:37:15 Sciatica 96279783 Completed 201210/08/2018 Paradise Stokes MD [address], [address], [place], [address] , [place] [facility] [place] 9 14:22:10 Dysphagi a 09814309 Completed 201210/08/2018 Paradise Stokes MD [address], [address], [place], [address] , [place] [facility] [place] 9 14:22:22 Myasthen ia gravis 41636446 Active 2011 julia Nereyda Green MD [address], [address], [place], [address] , [place] [facility] [place] 7 15:37:13 Malaise and fatigue 559104280 Completed 201211/27/2013 LAST ASSESSED : 27 MAY 2012 9:52AM; TYPE: CHRONIC Not Available [facility] 4 14:15:41 Urinary tract infectio us disease 28160865 Completed 201310/08/2018 Paradise Stokes MD [address], [address], [place], [address] , [place] [facility] [place] 9 14:22:41 Idiopath ic peripher al neuropat hy 78000357 Completed 201110/08/2018 Paradise Stokes MD [address], [address], [place], [address] , [place] [facility] [place] 9 14:22:12 Malaise and fatigue 499132988 Active 2011 Nereyda Grene MD [address], [address], [place], [address] , [place] [facility] [place] 7 15:37:14 Inflamed seborrhe ic keratosi s 533331046 Completed 201210/08/2018 Paradise Stokes MD [address], [address], [place], [address] , [place] [facility] [place] 9 14:22:29 Acute bronchit is 66909981 Completed 201204/12/2017 Sharonda Harrison RN null, [place] [facility] [place] 8 09:26:56 Depressi ve disorder 47901981 Active Nereyda Green MD [address], [address], [place], [address] , [place] [facility] [place] 7 15:37:13 Night sweats 67106932 Completed 10/08/2018 Paradise Stokes MD [address], [address], [place], [address] , [place] [facility] [place] 9 14:22:26 Neck pain 91372952 Active Nereyda Green MD [address], [address], [place], [address] , [place] [facility] [place] 7 15:37:15 Blood glucose outside referenc e range 360867316 Completed 201410/08/2018 Paradise Stokes MD [address], [address], [place], [address] , [place] [facility] [place] 9 14:21:53 Epigastr ic pain 24110899 Active Nereyda Green MD [address], [address], [place], [address] , [place] [facility] [place] 7 15:37:15 Orophary ngeal dysphagi a 58908321 Active Nereyda Green MD [address], [address], [place], [address] , [place] [facility] [place] 7 15:37:13 Candidia sis of the esophagu s 46377194 Completed 02/28/2016 Paradise Stokes MD [address], [address], [place], [address] , [place] [facility] [place] 9 14:22:04 Hiatal hernia 83741101 Active Nereyda Green MD [address], [address], [place], [address] , [place] [facility] [place] 7 15:37:14 Hemorrho ids 72847243 Active Nereyda Green MD [address], [address], [place], [address] , [place] [facility] [place] 7 15:37:13 Full thicknes s rotator cuff tear 052449932 Completed 10/08/2018 Paradise Stokes MD [address], [address], [place], [address] , [place] [facility] [place] 9 14:22:01 Injury of shoulder region 718152311 Completed 10/08/2018 Paradise Stokes MD [address], [address], [place], [address] , [place] [facility] [place] 9 14:21:47 Mood disorder 01022800 Completed 10/08/2018 Paradise Stokes MD [address], [address], [place], [address] , [place] [facility] [place] 9 14:22:34 Partial thicknes s rotator cuff tear 904276148 Active Nereyda Green MD [address], [address], [place], [address] , [place] [facility] [place] 7 15:37:14 Anxiety disorder 822442861 Completed 10/08/2018 Paradise Stokes MD [address], [address], [place], [address] , [place] [facility] [place] 9 14:21:57 Spinal stenosis 81688167 Active Nereyda Green MD [address], [address], [place], [address] , [place] [facility] [place] 7 15:37:14 Spontane ous ecchymos is 530967100 Active Nereyda Green MD [address], [address], [place], [address] , [place] [facility] [place] 7 15:37:14 Bursitis 58817070 Active Nereyda Green MD [address], [address], [place], [address] , [place] [facility] 7 15:37:13 Immuniza tion due 004267325 Completed 04/12/2017 Sharonda Harrison RN null, [facility] 8 09:27:06 Leukocyt osis 529358258 Completed 10/08/2018 Paradise Stokes MD [address], [facility], [address] , [facility] 9 14:21:44 Candidia sis of the esophagu s 45834650 Completed 201510/08/2018 Paradise Stokes MD [address], [address], [place], [address] , [facility] 9 14:22:04 Shoulder pain 31907883 Completed 201510/08/2018 Paradise Stokes MD [address], [address], [place], [address] , [facility] 9 14:22:32 Congenit al pericard ial cyst 466793584 Active 2017 Syd Kidd MD [address], [address], [place], [address] , [facility] 8 14:20:19 Long-ter m drug therapy Completed 201710/08/2018 [facility] Predniso ne use for about 30 yrs - not currentl y taking Calcium or Vit D and it has been awhile since his last DXA Paradise Stokes MD [address], [address], [facility], [address] , [facility] 9 14:22:18 Memory impairme nt 714386676 Active 2017 During AWV 02/06/20 18 reports that he has become disorien paola when he tries to go to the store but remember s how to get home - still smoking. ...May need nocturna l oximetry to look at readings when sleeping at night. Sharonda Harrison RN null, [place] [facility] 8 16:03:45 Injury of forearm 460051896 Completed 201710/08/2018 worse at night but wonders if this is carpal tunnel - please discuss during next OV annual exam Paradise Stokes MD [address], [address], [place], [address] , [place] [facility] [place] 9 14:21:49 Prediabe aida 453241055 Active 2018 Lisa Frausto NP [address], [address], [place], [address] , [place] [facility] [place] 9 13:43:54 Poor short-te rm memory 205113572 Active 2018 Lisa Frausto NP [address], [address], [place], [address] , [place] [facility] [place] 9 13:43:57 Lumbosac ral spondylo sis without myelopat hy 07288822 Active 2017 Lisa Frausto NP [address], [address], [place], [address] , [place] [facility] [place] 9 16:46:32 Degenera tion of lumbar interver tebral disc 60814931 Active 2017 Lisa Frausto NP [address], [address], [facility], [address] , [place] [facility] [place] 9 16:46:47 Memory finding 351200973 Active 2018 Mr. Rizzo repeat himself several times during our AWV - at least 3 times on the same topic. He did OK on the [employer] / (which is the same as last year). He continue to have some disorien tation at times. 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 Sharonda Harrison RN null, [place] [facility] [place] 9 14:28:15 Problem Notes None recorded. Procedures Surgical History Date Name Laterality Status Provider Name and Address Organization Details Recorded Time 6 Colonoscopy completed Sharonda Harrison RN [facility] 02/05/2018 15:42:59 6 EGD/Endoscopy completed Sharonda Harrison RN [place] [facility] 02/05/2018 15:44:14 1 Colonoscopy completed Stacy Arce [place] [facility] 09/28/2020 13:42:53 2 Other completed Sharonda Harrison RN [place] [facility] 02/05/2018 15:45:08 Other completed Sharonda Harrison RN [facility] 02/05/2018 15:47:35 repair of retina for retinal detachment completed Paradise Stokes MD [address] [place] [address], [address], [place], [address], [place] [facility] 10/10/2020 12:52:50 Imaging Results Imaging Date Name Status LastModified by Organiz ation Details LastModified Time 04/27/2019 Peripheral Artery Disease (PAD) Self Assessment Tool* completed [email or web address] Information not available 06/01/2019 12:23:45 11/15/2020 MRI, lumbar spine, w/o contrast completed [email or web address] [facility] [address], [address], 11/15/2020 22:00:16 01/31/2021 XR, lumbosacral spine, 2 or 3 view completed [email or web address] [facility] [address], [address], 02/07/2021 09:53:32 Procedure Notes None recorded. Medical Equipment None Reported. Allergies Allergen ID Allergen Name Allergen Category Reaction Reaction Severity Criticality Documentation Date Start Date Code Code System Note Provider Name and Address Organization Details Recorded Time 2300302 iodine medicatio n hives Not available Not available 02/09/2019 5933 RxNorm Sheba Lopez LPN [place] [facility] 9 15:03:30 099969 bacitraci n / neomycin / polymyxin B medicatio n Not available Not available Not available 11/27/20132011 96234 9 RxNorm REACT ION: ITCHI NG; COMME NT: ACTIV E; Not Available [facility] 4 18:28:03 456789 Iodinated contrast media (substanc e) medicatio n Not available Not available Not available 11/27/20132011 69852 2004 SNOMED REACT ION: SWELL ING; COMME NT: ACTIV E; Not Available [facility] 4 18:28:03 Medications Name Sig Start Date Stop Date Status Note LastModified by Organization Details LastModified Time fluconazo le 100 mg tablet Take 1 tablet every day by oral route as directed for 21 days. 10/09 completed Not Available Not Available Not Available clotrimaz ole 10 mg valentín Take by mucous mem route for 14 days. 12/24 completed Not Available Not Available Not Available prednison e 10 mg tablet takes 10mg daily active Not Available Not Available No t Available donepezil 5 mg tablet active Not Available Not Available Not Available trazodone 50 mg tablet active Not Available Not Available Not Available atorvasta tin 10 mg tablet active Not Available Not Available Not Available hydrocodo ne 5 mg-acetam inophen 325 mg tablet Take 1 tablet every 6 hours by oral route as needed. 07/14 completed Not Available Not Available Not Available fluocinon miryam 0.05 % topical gel 01/21 completed not using Not Available Not Available Not Available donepezil 10 mg tablet active Not Available Not Available Not Available prednison e 20 mg tablet 01/24 completed Not Available Not Available Not Available prednison e 5 mg tablet take 3 tablets daily 02/09 completed taking for M.G - takes more with a flare Not Available Not Available Not Available clobetaso l 0.05 % topical cream 02/05 completed Not Available Not Available Not Available diphenoxy late-atro pine 2.5 mg-0.025 mg tablet 08/09 completed Not Available Not Available Not Available penicilli n V potassium 500 mg tablet 12/24 completed Not Available Not Available Not Available hydrocodo ne 10 mg-acetam inophen 325 mg tablet Take 1 tablet every 6 hours by oral route as needed. 04/12 completed Not Available Not Available Not Available simvastat in 40 mg tablet TAKE 1 TABLET EVERY DAY active Not Available Not Available No t Available oxycodone -acetamin ophen 5 mg-325 mg tablet 10/26 completed Not Available Not Available Not Available alprazola m 0.5 mg tablet 10/26 completed Not Available Not Available Not Available prednisol one acetate 1 % eye drops,hermes rodriguezon 10/26 completed Not Available Not Available Not Available lorazepam 0.5 mg tablet active Not Available Not Available Not Available triamcino lone acetonide 0.1 % dental paste 09/19 completed Not Available Not Available Not Available tamsulosi n 0.4 mg capsule active Not Available Not Available Not Available cephalexi n 500 mg capsule 08/01 completed Not Available Not Available Not Available simvastat in 20 mg tablet take one tablet daily 12/23 completed yunior Perez ill take 40 mg Not Available Not Available Not Available gabapenti n 300 mg capsule active Not Available Not Available Not Available omeprazol e 20 mg capsule,d elayed release active Not Available Not Available Not Available hydroxyzi ne HCl 25 mg tablet 09/19 completed Not Available Not Available Not Available gabapenti n 100 mg capsule active Not Available Not Available Not Available diazepam 10 mg tablet Take 1 tablet by oral route for 1 day. 10/[address]dunba chavarria Not Available Not Available Not Available ibuprofen 600 mg tablet Take 1 tablet 3 times a day by oral route. 2019 active taking just 1 in the evening Not Available Not Available Not Available sertralin e 50 mg tablet TAKE 1 TABLET EVERY DAY active Not Available Not Available No t Available Bactrim DS 800 mg-160 mg tablet Take 1 tablet twice a day by oral route for 7 days. 12/01 completed Not Available Not Available Not Available escitalop dylan 10 mg tablet Take 1 tablet every day by oral route. 11/21 completed Not Available Not Available Not Available escitalop dylan 20 mg tablet no longer taking active Not Available Not Available No t Available alfuzosin ER 10 mg tablet,ex tended release 24 hr Take 1 tablet every day by oral route. 02/08 completed Not Available Not Available Not Available metoprolo l tartrate 25 mg tablet active Not Available Not Available Not Available duloxetin e 30 mg capsule,d elayed release Take 1 capsule every day by oral route for 14 days. 11/[address] Green Not Available Not Available Not Available duloxetin e 60 mg capsule,d elayed release TAKE 1 CAPSULE EVERY DAY active Not Available Not Available No t Available Colace takes daily as needed for constipa tion 12/01 completed Not Available Not Available Not Available Aspir-81 02/03 completed prn Not Available Not Available Not Available multivita min takes daily active Not Available Not Available No t Available oxycodone 10 mg tablet active Not Available Not Available Not Available diclofena c 1 % topical gel active Not Available Not Available Not Available Suprep Bowel Prep Kit 17.5 gram-3.13 gram-1.6 gram oral solution Take as directed for bowel prep. 10/26 completed Not Available Not Available Not Available Fluzone High-Dose 2019-20 (PF) 180 mcg/0.5 mL intramusc ular syringe TO BE ADMINIST ERED BY PHARMACI ST FOR IMMUNIZA TION 02/03 completed Not Available Not Available Not Available Vitals Date Recorded Body height Provider Name an d Address Organization Details Last Updated DateTime 02/06/2019 179.07 cm Crystal Alec CCMA [facility] 02/06/2019 15:16:30 Date Recorded Body mass index (BMI) Body weight Provider Name and Address Organization Details Last Updated DateTime 02/06/2019 25.5 kg/m2 27727.99 g Crystal Dunn CCMA [facility] 02/06/2019 15:20:59 Date Recorded Heart rate Provider Name an d Address Organization Details Last Updated DateTime 02/06/2019 68 /min Crystal Dunn CCMA [place] [facility] 02/06/2019 15:21:04 Date Recorded Oxygen saturation Oxygen saturation in Arterial blood by Pulse oximetry Provider Name and Address Organization Details Last Updated DateTime 02/06/2019 98 % 98 % Crystal Alec CCMA [facility] 02/06/2019 15:21:07 Date Recorded Body height Provider Name an d Address Organization Details Last Updated DateTime 02/09/2019 179.07 cm Sheba Lopez LPN [facility] 02/09/2019 15:04:22 Date Recorded Body mass index (BMI) Body weight Provider Name and Address Organization Details Last Updated DateTime 02/09/2019 25.6 kg/m2 69658.94 g Sheba A Haydon TECHNOLOGY TEACHER [place] [facility] 02/09/2019 15:04:29 Date Recorded Heart rate Provider Name an d Address Organization Details Last Updated DateTime 02/09/2019 104 /min Sheba A Haydon TECHNOLOGY TEACHER IN [facility] 02/09/2019 15:06:49 Date Recorded Respiratory rate Provider Name a nd Address Organization Details Last Updated DateTime 02/09/2019 24 /min Sheba A Haydon TECHNOLOGY TEACHER [place] [facility] 02/09/2019 15:06:51 Date Recorded Body height Provider Name an d Address Organization Details Last Updated DateTime 12/02/2019 179.07 cm Sheba A Haydon TECHNOLOGY TEACHER IN [facility] 12/02/2019 14:29:35 Date Recorded Body mass index (BMI) Body weight Provider Name and Address Organization Details Last Updated DateTime 12/02/2019 25 kg/m2 15421.13 g Sheba A Haydon TECHNOLOGY TEACHER IN [facility] 12/02/2019 14:29:46 Date Recorded Heart rate Provider Name an d Address Organization Details Last Updated DateTime 12/02/2019 80 /min Sheba A Haydon TECHNOLOGY TEACHER IN [facility] 12/02/2019 14:32:21 Date Recorded Body temperature Provider Name a nd Address Organization Details Last Updated DateTime 12/02/2019 99.1 [degF] Sheba A Haydon TECHNOLOGY TEACHER IN [facility] 12/02/2019 14:32:31 Date Recorded Respiratory rate Provider Name a nd Address Organization Details Last Updated DateTime 12/02/2019 20 /min Sheba A Haydon TECHNOLOGY TEACHER IN [facility] 12/02/2019 14:32:35 Date Recorded Body height Provider Name an d Address Organization Details Last Updated DateTime 10/10/2020 179.07 cm Stacy Claude [place] [facility] 10/10/2020 12:40:09 Date Recorded Body height Provider Name an d Address Organization Details Last Updated DateTime 01/31/2021 185.42 cm Delmi Gutierrez [place] [facility] 01/31/2021 15:39:18 Date Recorded Body mass index (BMI) Body weight Provider Name and Address Organization Details Last Updated DateTime 01/31/2021 21.1 kg/m2 55580.78 g Delmi Gutierrez [facility] 01/31/2021 15:39:28 Date Recorded Heart rate Respiratory rate Provider N dusty and Address Organization Details Last Updated DateTime 01/31/2021 93 /min 14 /min Delmi Gutierrez [facility] 01/31/2021 15:39:45 Date Recorded Systolic blood pressure Diastolic blood pressure Provider Name and Address Organization Details Last Updated DateTime 02/06/2019 125 mm[Hg] 60 mm[Hg] Jessica Michael CCMA [place] [facility] 02/06/2019 15:21:02 Date Recorded Systolic blood pressure Diastolic blood pressure Provider Name and Address Organization Details Last Updated DateTime 02/09/2019 118 mm[Hg] 72 mm[Hg] Sheba Lopez LPN [facility] 02/09/2019 15:06:15 Date Recorded Systolic blood pressure Diastolic blood pressure Provider Name and Address Organization Details Last Updated DateTime 12/02/2019 122 mm[Hg] 60 mm[Hg] Sheba Lopez LPN [facility] 12/02/2019 14:32:15 Date Recorded Systolic blood pressure Diastolic blood pressure Provider Name and Address Organization Details Last Updated DateTime 10/10/2020 80 mm[Hg] 56 mm[Hg] Stacy Claude [facility] 10/10/2020 12:45:01 Date Recorded Systolic blood pressure Diastolic blood pressure Provider Name and Address Organization Details Last Updated DateTime 01/31/2021 114 mm[Hg] 71 mm[Hg] Delmi Gutierrez [facility] 01/31/2021 15:39:33 Social History Question Answer Notes LastModified by Organization Details LastModified Time Tobacco Smoking Status Current Every Day Smoker Nereyda londono [facility] 12/24/2013 10:57:14 Do You Have An Advance Directive? Yes *ACP - Patient Voluntarily Discussed Advance Care Planning With Paradise Stokes MD On 12/02/2019 For 15 Minutes Or Less For An Annual Discussion. Discussed Advanced Care Plan With Pt In The Office Todaypatient Designated Sister Herber Lamb As HCRpt Has Completed A Living Will-asked Patient To Give Us A Copy To Add To Their Chart * Information not available 09/28/2020 What Is Your Level Of Alcohol Consumption? None Information not available 09/28/2020 What Is Your Level Of Caffeine Consumption? None Information not available 09/28/2020 Are You Currently Employed? No Information not available 09/28/2020 What Type Of Diet Are You Following? REGULAR Information not available 09/28/2020 Have You Directly Handled Bats, Rodents, Or Primates From Ebola Endemic Areas? No Information not available 09/28/2020 Have You Processed Blood Or Body Fluids From An Ebola Virus Disease Patient Without Appropriate PPE? No Information not available 09/28/2020 Have You Had Household Contact With An Ebola Virus Disease Patient? No Information not available 09/28/2020 Have You Had Direct Contact With A Body In An Ebola-affected Area Without Appropriate PPE? No Information not available 09/28/2020 Have You Had Percutaneous (e.g. Needle Stick) Or Mucous Membrane Exposure To Blood Or Body Fluids From An Ebola Virus Disease Patient? No Information not available 09/28/2020 Have You Had Other Close Contact With An Ebola Virus Disease Patient In Health Care Facilities Or Community Settings? No Information not available 09/28/2020 Have You Had Contact With Blood, Bodily Fluids, Or Human Remains Of A Patient Known To Have Or Suspected To Have Ebola Virus Disease? No Information not available 09/28/2020 Do You Reside In Or Have You Traveled To An Area Where Ebola Virus Transmission Is Active? No Information not available 09/28/2020 Do You Or Have You Ever Used E-cigarettes Or Vape? 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 No Information not available 09/28/2020 Hard Of Hearing Or Deaf In One Or Both Ears? Yes Notices Changes In Hearing In R. Ear Information not available 09/28/2020 Have You Had Sexual Relations With Anyone Who Has Been Positively Diagnosed With Zika Virus Within The Last 6 Months? No Information not available 09/28/2020 Single Or Multi-level Home/work? Single Level Home Information not available 09/28/2020 Legally Blind In One Or Both Eyes? No Information not available 09/28/2020 Live Alone Or With Others? Alone Information not available 09/28/2020 Current Living Situation Alone With Puppy Dog Information not available 02/05/2018 Activities Of Daily Living Issues Independent Information not available 02/05/2018 Do You Want Help Finding Or Keeping Work Or A Job? No Information not available 02/03/2019 Do You Often Feel Lonely? No Information not available 02/03/2019 Do You Want Help With Any Of Your Needs? No Information not available 02/03/2019 Are Any Of Your Needs Urgent? No Information not available 02/03/2019 Are You Worried That In The Next 2 Months You May Not Have Stable Housing? No Information not available 02/03/2019 Have You Had A Fever And/or Symptoms Of A Lower Respiratory Illness (cough, Difficulty Breathing, Etc)? No [email or web address]-27 Information not available 10/10/2020 Have You Had Any Of These Symptoms: Chills ,Headache, Fatigue, Muscle Or Body Aches , Sore Throat, New Loss Of Taste Or Smell, Nausea Or Vomiting, Or Diarrhea? No [email or web address]-27 Information not available 10/10/2020 Have You Had A COVID-19 Vaccine In The Last 7 Days? No [email or web address]-27 Information not available 10/10/2020 Marital Status Informatio n not available 09/28/2020 Do You Have A Medical Power Of Wide Load Escort? No My Sister, Then My Son Mustapha Information not available 09/28/2020 What Was The Date Of Your Most Recent Tobacco Screening? 10/10/2020 Information not available 10/10/2020 What Is Your Current Pack Years? [email or web address] ars Information not available 09/28/2020 Difficulty Reading? No Information not available 09/28/2020 Seat Belts Used Routinely No Information not available 09/28/2020 Smoke Alarm In Home Yes Information not available 09/28/2020 Do You Have Smoke And Carbon Monoxide Detectors In Your Home? Yes [email or web address] Information not available 10/10/2020 Are You Passively Exposed To Smoke? Yes [email or web address] Information not available 10/10/2020 Do You Or Have You Ever Used Smokeless Tobacco? Never Used Smokeless Tobacco Information not available 09/28/2020 How Much Tobacco Do You Smoke? 1.5 PPD [email or web address] Information not available 02/14/2016 General Stress Level Low Information not available 09/28/2020 Do You Use Sunscreen Routinely? Yes Information not available 09/28/2020 How Many Years Have You Smoked Tobacco? 47 Information not available 09/28/2020 Do You Have Symptoms Associated With Zika Virus (fever, Rash, Joint Pain, Or Conjunctivitis) ? No Information not available 09/28/2020 Have You Recently (within The Last 12 Weeks, Or During A Current ) Traveled To Or Lived In A Zika-affected Area? No Information not available 09/28/2020 Sex: Unknown Functional Status Question Answer Note LastModified by Organizat ion Details LastModified Time Do you have difficulty walking or climbing stairs? No Information not available 09/28/2020 Urinary incontinence assessment performed? No Information not available 09/28/2020 Are you able to walk? YESASSIST Information not available 09/28/2020 Do you have difficulty doing errands alone? noticing some disorientation Information not available 09/28/2020 Are you able to care for yourself? Yes Information not available 09/28/2020 What is your exercise level? None not even walking the dog anymore Information not available 09/28/2020 Mental Status Question Answer Note LastModified by Organization D etails LastModified Time Do you have difficulty concentrating, remembering or making decisions? Yes Information no t available 09/28/2020 Family History Relationship Description Onset Age of this Age Resolved Age Notes LastModified by Organization Details LastModified Time Mother No current problems or disability Not available 09/28 13:42:49 Mother Malignant neoplastic disease Not available 2020 13:42:49 Father Malignant neoplastic disease 92 ? type Not available 2020 13:42:49 Sister No current problems or disability Not available 09/28 13:42:49 Sister Malignant neoplastic disease Not available 2020 13:42:49 Notes:has a son who is 34, a nd daughter who is 29 Medical History Condition Response asthma N COPD N acid reflux/GERD N diabetes mellitus N arthritis Y high blood pressure N heart problems N hypothyroidism N high cholesterol N cancer N blood clots N Immunizations Vaccine Type Date Status Note Provider Nam e and Address Organization Details Recorded Time Influenza, high-dose, trivalent, PF 8 completed Not Available [facility] 04/12/2019 04:09:19 pneumococcal polysaccharide PPV23 0 completed Nicole Simmons null, [place] [facility] 12/02/2019 15:29:22 Influenza, split virus, trivalent, preservative 5 completed Not Available [facility] 04/11/2019 04:07:20 Tdap 5 completed Not Available [facility] 04/11/2019 02:17:33 Influenza, split virus, trivalent, preservative 5 completed Katie Lovelace null, [place] [facility] 08/01/2017 13:05:36 Td (adult), 2 Lf tetanus toxoid, preservative free, adsorbed 3 completed Katie Lovelace null, [place] [facility] 08/01/2017 13:05:36 Novel [id number], all formulations 9 completed Katie Lovelace null, [place] [facility] 08/01/2017 13:05:36 Influenza, split virus, trivalent, preservative 3 completed Katie Lovelace null, [place] [facility] 08/01/2017 13:05:36 Influenza, high-dose, trivalent, PF 9 completed Stacy Arce null, [place] [facility] 09/28/2020 13:42:30 Influenza, split virus, trivalent, preservative 4 completed Not Available [facility] 04/11/2019 02:12:45 COVID-19 vaccine, vector-nr, rS-ChAdOx1, PF, 0.5 mL 1 completed Stacy Arce null, [place] [facility] [place] 09/28/2020 13:42:30 Influenza, split virus, quadrivalent, preservative 6 completed Stacy Claude null, [place] [facility] [place] 09/28/2020 13:42:29 pneumococcal polysaccharide PPV23 5 completed Stacy Claude null, [place] [facility] [place] 09/28/2020 13:42:30 Pneumococcal conjugate PCV 13 7 completed Not Available [facility] 04/12/2019 02:47:46 Influenza, split virus, trivalent, preservative 3 completed Katie Lovelace null, [place] [facility] 08/01/2017 13:05:36 Influenza, adjuvanted, trivalent, PF 7 completed Not Available [facility] 04/11/2019 04:14:38 Past Encounters Encounter ID Performer Location Encounter Start Date Encounter Closed Date Diagnosis/Indication Diagnosis SNOMED-CT Code Diagnosis ICD10 Code Diagnosis Note [id number] Irene Coulter zFNL_[facility]_ [facility] [address] [place] [address] 12/24/2013 10:06:55 12/24/2013 11:21:20 Testicular finding 981353744 Active or passive immunization 476137999 [id number] [place]_[facility]_ [facility] [address] [place] [address] 07/14/2014 15:30:37 07/14/2014 16:12:54 Hyperlipidemia 33941041 nonfasting Depressive disorder 82002628 Night sweats 90406935 oc c check labs, if contintue, do xray still smoking Neck pain 77169179 consi douglas pt [id number] Danielle Rivera zFNL_[facility] [address] [place] [address] 10/12/2014 15:05:33 10/12/2014 16:03:55 Night sweats 84207416 REL TO BOWEL MOVEMENTS BUT BETTER CONSIDER CT IF CONT Myasthenia gravis 43130878 STABLE Hyperlipidemia 72907739 nonfasting doing well [id number] [facility] [address] [place] [address] 10/08/2011 00:00:00 [id number] [facility] [address] [place] [address] 05/27/2012 00:00:00 [id number] [facility] [address] [place] [address] 09/01/2012 00:00:00 [id number] [facility] [address] [place] [address] 09/17/2012 00:00:00 [id number] [facility] [address] [place] [address] 01/08/2013 00:00:00 [id number] [facility] [address] [place] [address] 06/16/2013 00:00:00 [id number] [facility] [address] [place] [address] 09/30/2013 00:00:00 [id number] Nereyda Green MD z[facility]NL[facility] [address] [facility] [address] [place] [address] 02/08/2015 09:31:44 02/08/2015 10:28:34 Myasthenia gravis 78193279 G70.00 Hyperlipidemia 86918423 E78.5 since leg weakness, cpk, trial off of simvs x 2-3 weeks., if it makes no difference , continue, if better off of simva, call me Depressive disorder 3763 9007 F32.9 ran out of sertraline , doing fine, try off for now Blood gluc ose outside reference range 253804628 R73.09 Viral screening 74891097 4 Z11.59 Administra tion of diphtheria, pertussis, and tetanus vaccine 232699692 Z23 Weakness o f distal arms and legs 061756277 M62.81 mainly legs, not arms [id number] Nereyda Green MD [facility] [address] [facility] [place] [address] 08/10/2015 09:57:37 08/10/2015 11:46:36 Skin lesion 81520673 L98.9 Hyperlipidemia 23421261 E78.5 Pain in ri ght lower limb 182706117 M79.604 Adult heal th examination 332742085 Z00.00 want s to change md, refer to [facility] Abdominal pain 01803448 R10.9 urinary issues, epi Impaired g lucose tolerance 9174502 R73.02 watch sweets/car bs, consdier adding metformin, once abdo pain evaluated Depressive disorder 3548 9007 F32.9 had sertraline in past, has been told has been irritable, consider lexapro [id number] MD FARIDA Chadwick_[facility]_G [facility] _[facility] [address] [facility], [address] [place] [address] 08/18/2015 09:12:59 08/18/2015 13:08:08 Epigastric pain 88102111 R10.13 He is at risk of having gastritis/ PUD from daily prednisone /nsaids use. -- EGD now. Screening for malignant neoplasm of colon 022014284 Z12.11 colonoscop y due now. Oropharyng eal dysphagia 64224557 R13.12 likely from myasthenia [id number] Mani Hammond MD [facility] [facility] [address] [facility] [address] [place] [address] 09/19/2015 13:41:34 09/19/2015 15:10:11 Candidiasis of the esophagus 05727247 B37.81 hold celexa for diflucan. Hiatal hernia 69756837 K 44.9 Hemorrhoids 87784876 K64 .9 symptomati c. continue stool softener. [id number] James Sanchez MD IND_SMG_H IM_[facility] [address] [place] [address] 10/27/2015 13:37:15 10/27/2015 15:45:59 Full thickness rotator cuff tear 599108383 M75.121 Injury of shoulder region 300452358 S49.81XA Mood disorder 89887265 F 39 [id number] James Sanchez MD IND[facility] [address] [address] 11/29/2015 13:28:03 11/29/2015 14:27:38 Partial thickness rotator cuff tear 669925876 M75.101 Anxiety disorder 4117034 06 F41.9 Spinal stenosis 57637936 M48.00 [id number] James Sanchez MD [facility] [address] [place] [address] 01/25/2016 11:54:09 01/25/2016 14:35:31 Spontaneous ecchymosis 778870717 R23.3 right elbow Bursitis 01300490 M71.9 Immunization due 1007980 08 Z28.3 [id number] James Sanchez MD [facility] [address] [place] [address] 02/14/2016 08:48:17 02/14/2016 09:58:42 Olecranon bursitis 172148956 M70.21 right elbow Leukocytosis 486554454 D 72.829 need to recheck follow up [id number] James Sanchez MD [facility] [address] [place] [address] 02/28/2016 14:23:07 02/29/2016 07:17:35 Anxiety disorder 643928057 F41.9 Doing well with current dose of the SSRI. Candidiasi s of the esophagus 46427059 B37.81 hold celexa for diflucan. [id number] Nereyda Green MD IND[facility] [address] [place] [address] 10/09/2016 14:32:00 10/09/2016 15:48:31 Hyperlipidemia 79793514 E78.5 Low back pain 823579326 M54.5 Intention tremor 8447838 [address] hannah. x 6 months, started february, see dr hannah memory loss Poor short -term memory 176751864 R41.3 Depressive disorder 1144 0637 F32.9 had sertraline in past, has been told has been irritable, lexapro didn't work Screening for cancer 158 16680 Z12.9 Administra tion of pneumococcal vaccine 45071530 Z23 Dyspnea 353110260 R06.00 maybe with exertion, but cant do to back, [id number] Lisa Frausto , POLO IND_[facility] [address] [place] [address] 12/18/2016 14:08:17 12/18/2016 15:20:03 Hyperlipidemia 28048899 E78.5 reports no myalgias on atorvastat in Low back pain 883473168 M54.5 pt reports he did not go to physical therapy. states that the more active he is, the more the discs are aggravated and complains of increased pain.pt reports he tried physical therapy in the past but symptoms worsened.janice holbrook with Dr. Peterson, pain and spine MD. rec pt make appointmen t to see spine doctor to discuss treatment plan. Intention tremor 4522320 6 G25.2 will send referral to new neurologis t. was advised to f/u with Dr. Hannah at last appointmen t. Poor short -term memory 752026619 R41.3 will send referral to new neurologis t.[facility] ed pt to get head CT that was ordered by Dr. Green at last visitwill re-order todayadvis ed to f/u with neurology Depressive disorder 0336 9198 F32.9 reports depression improved since starting cymbalta in September. denies irritabili ty and mood changes.st ates he is not interested in counseling at this time. Screening for cancer 158 38390 Z12.9 pt reports he will be getting colonoscop y next month Incomplete emptying of urinary bladder [id number] R39.14 pt previously evaluated on urology, started on afluzosin but did not see any improvemen t on medication and has not been taking Myasthenia gravis 373710 [address] Hannah is retiring and needs new neuro referral for myasthenia gravis Administra tion of influenza vaccine 88038818 Z23 get today in office. [id number] Lisa Frausto NP [facility] [address] [place] [address] 01/21/2017 16:32:19 01/21/2017 17:36:39 Tremor 03701303 R25.1 unchanged since last visit, rec f/u with neuro Poor short -term memory 210872522 R41.3 unchanged since last visit, rec f/u with neuro Myasthenia gravis 431280 04 G70.00 complains of worsening myasthenia gravis symptoms, will see Dr. Bravo in February, will call their office to see if pt can be seen sooner Insomnia 406202176 G47.0 0 reports getting a few hours at night as well as napping during the daywill try to decrease nicotine intake close to bedtimewil l try OTC melatonin [id number] Neeryda Green MD [facility] [address] [facility] [place] [address] 04/12/2017 10:09:40 04/12/2017 10:54:14 Hyperlipidemia 13250403 E78.5 Nicotine dependence [address] Lung Screening I certify that we have discussed the following: The patient has participat ed in a shared decision making session during which potential risks and benefits of Low Dose CT lung screening were discussed. The patient was informed of the importance of adherence to annual screening, impact of comorbidit ies, and ability/wi llingness to undergo diagnosis and treatment. The patient was informed of the importance of smoking cessation and/or maintainin g smoking abstinence , including the offer of Medicare-c overed tobacco cessation counseling services, if applicable . The patient is asymptomat ic (no symptoms such as fever, chest pain, new shortness of breath, new or changing cough, coughing up blood, or unexplaine d significan t weight loss). 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 Patient was advised to use ibuprofen 600 mg tablets 1 p.o. 3 times daily for pain and inflammati on until he sees the shoulder specialist s. Patient will also take Colace daily or twice a day to help with constipati on that he experience s when taking ibuprofen. Will defer shoulder x-rays to the specialist at this time. Patient voiced understand ing. [id number] Jenifer Vick NP [facility] [address] [place] [address] 09/19/2017 16:07:28 09/19/2017 16:47:54 Mixed anxiety and depressive disorder 249975683 F41.8 Symptoms c/w anxiety/de pressionCo ncerned about social isolationL kristyn alone with dog; does get out once a week to have lunch with a friendUnsu re why he stopped previous antidepres santsRevie wed recordsLoo ks like sertraline stopped d/t irritabili tyWill restart Cymbalta; 30 mg sent to local pharmacy, 60 mg sent to mail orderHas appt with Dr. Green in 6 weeks; f/u on Cymbalta at that timerOffer ed counseling referral; declined at this timeEncour aged to increase social contactsGo to ER with suicidal ideation [id number] Nereyda Green MD [facility] [address] [facility] [place] [address] 11/04/2017 15:38:45 11/04/2017 16:36:56 Anxiety 97416746 F41.9 much better on duloxetine Poor short -term memory 362541290 R41.[address] hannah. 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 no cp/sob/diz ziness/iraida martc for fasting labs, consider switching to high intensity statin such as atorvastat in Prediabetes 665803963 R7 3.03 Ha1C 6.2% in 2014repeat with labspoor dietfastin g bs 101 last year Poor short -term memory 355928032 R41.3 ongoing > 1 yearsecond duane to correction steroids?l abs as below, rec f/u with neuropsych , pt agreeableh ead CT 12/2016 showed no acute abnormalit y Myasthenia gravis 554227 [address] hannah. may need new referral as dr. charlton is retiring per pt reportrepo rts stable sxs Pain of left wrist 18335 99044 56336 M25.532 -left wrist pain x 1 year; no known injury; worse in PM, worse with flexion but hurts all of the time; worsening; denies swelling; pt is right hand dominant -saw ortho last year, had steroid injection apr and august 2017-will f/u with ortho (Dr. Cortney Rodas) if wanting another steroid injection Chronic low back pain 27 6846765 M54.5 -reports chronic low back pain; hx lumbosacra l spondylosi s w/o myelopathy and degenerati on of lumbar interverte bral disc-facet joint injections with Dr. Gardner 1 year ago-pt requesting chronic hydrocodon e for pain, reports that Dr. Gardner does not prescribe correction narcotics- requesting new crayon painter referral, placed today Smoker 46978660 F17.200 has tried nicotine gum, chantix, patches, and cold turkeynoth ing has helpedsmok ing x 45 years, 1-1.[address] 03/2017, no signs of malignancy [id number] Syd Kidd MD [facility] OB[facility]DOC [address] [place] [address] 08/04/2018 16:24:00 08/06/2018 08:07:11 Prediabetes 613398080 R73.03 Poor short -term memory 667408311 R41.3 Hyperlipidemia 37911248 E78.5 Screening for malignant neoplasm of prostate 675409872 Z12.5 Congenital pericardial cyst 111085560 Q24.8 conservati ve management [id number] Paradise Stokes MD [facility] [address] [place] [address] 10/08/2018 13:53:03 10/08/2018 14:29:06 Hyperglycemia 77708215 R73.9 Hyperlipidemia 27322883 E78.5 Tobacco user 536792924 Z 87.891 Nicotine dependence 5629 4008 Z87.891 Counseling to Prevent Tobacco Use Performed by: ack ____ ____ Minutes: _5___ Education performed: [x ] counseling regarding risks [ x] counseling regarding benefits of quitting [ x] medication s ____ [ ] patient agreed to come back for ___ additional sessions no[ ] patient was receptive to counseling /suggestio ns Long-term current use of steroid 724521909 Z79.52 Adult heal th examination 844624606 Z00.00 [id number] Paradise Stokes MD [facility] [address] [place] [address] 02/03/2019 13:07:49 02/03/2019 16:35:37 Adult health examination 275631363 Z00.00 [id number] Madonna Naik MD [facility] [address] [place] [address] 02/06/2019 15:00:13 02/06/2019 16:37:33 Cellulitis of lower limb 311877354 L03.119 Unable to pack it but the opening of the wound is quite large, so it will probably not close up quickly.St art antibiotic s with MRSA coverage (although doesn't look typical for MRSA).RTc in 3d for follow up. Call sooner prn. [id number] Paradise Stokes MD [facility] [address] [place] [address] 02/09/2019 14:55:29 02/09/2019 15:25:54 Furuncle 061059657 L02.92 [id number] Paradise Stokes MD [facility] [address] [place] [address] 12/02/2019 14:24:01 12/02/2019 14:56:34 Adult health examination 239581162 Z00.00 Administra tion of pneumococcal vaccine 19823658 Z23 Nicotine dependence [address] Lung Screening I certify that we have discussed the following: The patient has participat ed in a shared decision making session during which potential risks and benefits of Low Dose CT lung screening were discussed. The patient was informed of the importance of adherence to annual screening, impact of comorbidit ies, and ability/wi llingness to undergo diagnosis and treatment. The patient was informed of the importance of smoking cessation and/or maintainin g smoking abstinence , including the offer of Medicare[place] [facility] [place], if applicable . The patient is asymptomat ic (no symptoms such as fever, chest pain, new shortness of breath, new or changing cough, coughing up blood, or unexplaine d significan t weight loss). Hyperlipidemia 00769773 E78.5 Hyperglycemia 08551550 R 73.9 Advance care planning 71 3130510 Z71.89 ? ? ?ACP - Patient voluntaril y discussed advance care planning with Paradise Stokes MD on 12/02/2019 for 15 minutes or less for an annual discussion . discussed advanced care plan with pt in the office today patient designated sister Herber Lamb as HCR pt has completed a living will-asked patient to give us a copy to add to their chart ? ? ? Screening for malignant neoplasm of prostate 166845612 Z12.5 [id number]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
--- OUTSIDE RECORDS SUMMARY | 2024-04-21 13:22 | XMS_ITS | Encounter Summary ---
Author Organization [facility] Address [address] [place] [address] Care Team Providers Care Cruise Counselor Name Role Phone Trav Verdugo MD Primary Care Provider [phone] Encounter Details Date Type Department Care Team (Late st Contact Info) Description 03/27/2024 Lab Requisition [facility] - Main Lab [address] [facility] [place] [address] Curt Brewster MD [address] [place] [address] Chronic kidney disease, unspecified Social History Tobacco Use Types Packs/Day Years Used Date Smoking Tobacco: Never Assessed Sex and Gender Information Value Date Recorded Sex Assigned at Not on file Gender Identity Not on file Sexual Orientation Not on file documented as of this encounter Plan of Treatment Not on file documented as of this encounter Procedures Procedure Name Priority Date/Time Associated Diagnosis Comments LIPID PANEL WITH REFLEX TO DIRECT LDL Routine 03/30/2024 5:38 AM EST Chronic kidney disease, unspecified COMPLETE BLOOD COUNT Routine 03/30/2024 5:38 AM EST Chronic kidney disease, unspecified THYROID STIMULATING HORMONE Routine 03/30/2024 5:38 AM EST Chronic kidney disease, unspecified HEMOGLOBIN A1C Routine 03/30/2024 5:38 AM EST Chronic kidney disease, unspecified VITAMIN B12 Routine 03/30/2024 5:38 AM EST Chronic kidney disease, unspecified COMPREHENSIVE METABOLIC PANEL Routine 03/30/2024 5:38 AM EST Chronic kidney disease, unspecified documented in this encounter Results * Thyroid stimulating hormone (03/30/2024 5:38 AM EST) Pathologist [facility] TSH 0.64 0.40 - 4.00 mcIU/mL LAB CHEMISTRY METHOD 03/30/2024 12:33 PM EST [facility] Blood Venous blood specimen / Unknown Venipuncture / Unknown 03/30/2024 5:38 AM EST 03/30/2024 11:09 AM EST Curt Brewster MD LAB BLOOD ORDERABLES Performing Organization Address City/[facility]/ZIP Co de Phone Number [facility] [address] [place] [address], * Hemoglobin A1c (03/30/2024 5:38 AM EST) [facility] Hemoglobin A1C 5.6 <6.5 % LAB CHEMISTRY METHOD 03/30/2024 1:51 PM EST [facility] Mean Bld Glu Estim. 114 mg/dL LAB CHEMISTRY METHOD 03/30/2024 1:51 PM EST [facility] Blood Venous blood specimen / Unknown Venipuncture / Unknown 03/30/2024 5:38 AM EST 03/30/2024 11:09 AM EST Curt Brewster MD LAB BLOOD ORDERABLES Performing Organization Address City/[facility]/ZIP Co de Phone Number [facility] [address] [place] [address], * (ABNORMAL) Vitamin B12 (03/30/2024 5:38 AM EST) [facility] Vitamin B-12 1,196(H) 250 - 900 pcg/mL LAB CHEMISTRY METHOD 03/30/2024 12:53 PM EST [facility] Blood Venous blood specimen / Unknown Venipuncture / Unknown 03/30/2024 5:38 AM EST 03/30/2024 11:09 AM EST Curt Brewster MD LAB BLOOD ORDERABLES [facility] [address] [place] [address], [place] [phone] * Lipid panel with reflex to direct LDL (03/30/2024 5:38 AM EST) Cholesterol 147 0 - 200 mg/dL LAB CHEMISTRY METHOD 03/30/2024 12:53 PM EST [facility] Triglycerides 85 0 - 150 mg/dL LAB CHEMISTRY METHOD 03/30/2024 12:53 PM EST [facility] HDL 51 >=40 mg/dL LAB CHEMISTRY METHOD 03/30/2024 12:53 PM [facility] LDL Calculated 79 0 - 100 mg/dL LAB CHEMISTRY METHOD 03/30/2024 12:53 PM [facility] VLDL Cholesterol Fazal 17 mg/dL LAB CHEMISTRY METHOD 03/30/2024 12:53 PM [facility] Non HDL Chol. (LDL+VLDL) 96 <145 mg/dL LAB CHEMISTRY METHOD 03/30/2024 12:53 PM EST [facility] Chol/HDL Ratio 2.9 0.0 - 4.4 LAB CHEMISTRY METHOD 03/30/2024 12:53 PM [facility] Blood Venous blood specimen / Unknown Venipuncture / Unknown 03/30/2024 5:38 AM EST 03/30/2024 11:09 AM EST Curt Brewster MD LAB BLOOD ORDERABLES [facility] [address] [place] [address], [place] [phone] * (ABNORMAL) Comprehensive metabolic panel (03/30/2024 5:38 AM EST) Sodium 139 133 - 145 mmol/L LAB CHEMISTRY METHOD 03/30/2024 12:53 PM [facility] Potassium 3.7 3.5 - 5.5 mmol/L LAB CHEMISTRY METHOD 03/30/2024 12:53 PM [facility] Chloride 105 96 - 110 mmol/L LAB CHEMISTRY METHOD 03/30/2024 12:53 PM [facility] CO2 25 21 - 32 mmol/L LAB CHEMISTRY METHOD 03/30/2024 12:53 PM [facility] Anion Gap 9 3 - 11 LAB CHEMISTRY METHOD 03/30/2024 12:53 PM [facility] Glucose 77 70 - 100 mg/dL LAB CHEMISTRY METHOD 03/30/2024 12:53 PM [facility] BUN 44(H) 5 - 25 mg/dL LAB CHEMISTRY METHOD 03/30/2024 12:53 PM [facility] Creatinine 1.34(H) 0.70 - 1.30 mg/dL LAB CHEMISTRY METHOD 03/30/2024 12:53 PM [facility] eGFR 56(L) >=60 mL/min/1. 73m2 LAB CHEMISTRY METHOD 03/30/2024 12:53 PM [facility] Comment:Calculation based on the??Chronic Kidney Disease Epidemiology Collaboration (CKD-EPI) equation refit??without adjustment for race. BUN/Creatinine Ratio 32.8 LAB CHEMISTRY METHOD 03/30/2024 12:53 PM [facility] Calcium 8.5 8.5 - 10.5 mg/dL LAB CHEMISTRY METHOD 03/30/2024 12:53 PM [facility] AST (SGOT) 17 10 - 42 unit/L LAB CHEMISTRY METHOD 03/30/2024 12:53 PM [facility] ALT (SGPT) 21 10 - 60 unit/L LAB CHEMISTRY METHOD 03/30/2024 12:53 PM [facility] Alkaline Phosphatase 59 42 - 121 unit/L LAB CHEMISTRY METHOD 03/30/2024 12:53 PM EST [facility] Total Protein 6.8 6.0 - 8.0 g/dL LAB CHEMISTRY METHOD 03/30/2024 12:53 PM [facility] Albumin 3.6 3.2 - 5.0 g/dL LAB CHEMISTRY METHOD 03/30/2024 12:53 PM [facility] Total Bilirubin 0.7 0.0 - 1.4 mg/dL LAB CHEMISTRY METHOD 03/30/2024 12:53 PM [facility] Blood Venous blood specimen / Unknown Venipuncture / Unknown 03/30/2024 5:38 AM EST 03/30/2024 11:09 AM EST Curt Breswter MD LAB BLOOD ORDERABLES [facility] [address] [place] [address], * (ABNORMAL) Complete blood count (03/30/2024 5:38 AM EST) WBC 13.6(H) 4.8 - 10.8 K/mcL LAB HEMETOLOGY METHOD 03/30/2024 12:26 PM [facility] RBC 4.30(L) 4.50 - 5.50 M/[facility] LAB HEMETOLOGY METHOD 03/30/2024 12:26 PM [facility] Hemoglobin 13.3(L) 13.5 - 17.5 g/dL LAB HEMETOLOGY METHOD 03/30/2024 12:26 PM [facility] Hematocrit 41.8(L) 42.0 - 54.0 % LAB HEMETOLOGY METHOD 03/30/2024 12:26 PM [facility] MCV 97.2 79.0 - 98.0 FL LAB HEMETOLOGY METHOD 03/30/2024 12:26 PM [facility] MCH 30.9 27.0 - 32.0 pcg LAB HEMETOLOGY METHOD 03/30/2024 12:26 PM [facility] MCHC 31.8(L) 32.0 - 37.0 g/dL LAB HEMETOLOGY METHOD 03/30/2024 12:26 PM [facility] RDW 14.3 11.0 - 15.0 % LAB HEMETOLOGY METHOD 03/30/2024 12:26 PM [facility] Platelets 324 130 - 400 K/mcL LAB HEMETOLOGY METHOD 03/30/2024 12:26 PM [facility] MPV 11.5(H) 7.0 - 11.0 FL LAB HEMETOLOGY METHOD 03/30/2024 12:26 PM [facility] NRBC 0.0 <1.0 % LAB HEMETOLOGY METHOD 03/30/2024 12:26 PM [facility] NRBC Absolute 0.00 <0.10 K/mcL LAB HEMETOLOGY METHOD 03/30/2024 12:26 PM [facility] Blood Venous blood specimen / Unknown Venipuncture / Unknown 03/30/2024 5:38 AM EST 03/30/2024 11:09 AM EST Curt Brewster MD LAB BLOOD ORDERABLES [facility] [address] [place] [address], documented in this encounter Visit Diagnoses Diagnosis Chronic kidney disease, unspecified documented in this encounter Care Teams Cruise Counselor Relationship Specialty Start Date End Date Trav Verdugo MD [address] [place], [place] [phone] [place] [address] PCP - General Geriatric Medicine 04/03/24 documented as of this encounter
[2024-04-21 14:17] LABS: Reflex Lactate? Lactic Acid Added
[2024-04-21 14:51] LABS: ~Lactic Acid-LAB USE ONLY 0.8 mmol/L (0.5-2.0)
--- NOTE | 2024-04-21 15:00 | PC.NURSE ---
pt's right ac iv line infiltrated, pt'd arm is red and slightly swollen, arm wrapped in a warm blanket
[2024-04-21] MEDS: Ibuprofen 600 MG TABLET PO (15:04)
[2024-04-21 15:19] LABS: C Reactive Protein 16.91 mg/dL (< or = 0.50)
[2024-04-21 15:23] LABS: Erythrocyte Sedimentation Rate 83 MM/HR (0-15)
--- NOTE | 2024-04-21 15:36 | PHA.MEDREC ---
Pharmacy Consult ? Medication Reconciliation Pharmacy has completed the medication reconciliation, utilized list from [facility].
--- NOTE | 2024-04-21 16:50 | P.HPHOSP_ITS ---
History of Present Illness Date of Service: 04/21/24 Chief Complaint: Right buttock abscess a 73 years old male with a PMH significant for?dementia, myasthenia gravis chronically on prednisone 5mg, COPD chronically on 2-3L NC, CAD, and HLD who presents to the ED from SNF with?right buttock abscess that has failed outpatient therapy. The patient was admitted to the hospital for evaluation of similar problem in early February 2024. The patient was not able to provide history or complaints. he is not aware of the abscess situation. denies No chest pain, palpitations, SOB, nausea, vomiting, diarrhea or urinary symptoms. The Abscess was drained in ED. CT scan concerning for possbile bone involvement. Started on Vancomycin and Zosyn. Review of Systems 2 Review of Systems: Yes Unobtainable due to mental condition [facility] Medical History Acute on chronic urinary retention COPD (chronic obstructive pulmonary disease) Compression fx, lumbar spine Myasthenia gravis Dementia High cholesterol Constipation GERD (gastroesophageal reflux disease) Depression BPH (benign prostatic hyperplasia) Compression fx, lumbar spine Compression fx, thoracic spine Myasthenia gravis Urinary retention Dementia Surgical History H/O thymectomy Social History Household Members: Other Household Members Other:: lives in [facility] Housing: [facility] Housing Other:: [facility] Do you presently have visiting nurse or other home services: Yes (Pt lives at [facility]) Alcohol intake: never Patient Tobacco Use Status: Tobacco use Unknown Smoked in Last 30 Days: No Use of substances other than those prescribed or required for medical reasons: No Advance Directives: Yes Advance Directives on File: Yes Advance Directives Date on File: 07/17/21 Do you have a plan to hurt others: No Plan service: No Current occupational status: retired and disabled Meds Allergies Allergy/AdvReac Type Severity Reaction Status Date / Time bacitracin Allergy Unknown Verified 04/21/24 11:56 [From Neosporin ([id number])] iodine Allergy Unknown Verified 04/21/24 11:56 neomycin Allergy Unknown Verified 04/21/24 11:56 [From Neosporin ([id number])] polymyxin B Allergy Unknown Verified 04/21/24 11:56 [From Neosporin ([id number])] Home Medications ?Medication ?Instructions ?Recorded ?Confirmed ?Last Taken ?Type atorvastatin 10 mg tablet 1 tab PO BEDTIME@199907/16/21 04/21/24 03/20/24 20:00 History cyanocobalamin (vitamin B-12) 500 mcg PO DAILY@79907/16/21 04/21/24 03/20/24 08:00 History 1,000 mcg capsule gabapentin 300 mg capsule 1 cap PO BID 07/16/21 04/21/24 03/20/24 20:00 History melatonin 3 mg tablet 3 mg PO BEDTIME@199907/16/21 04/21/24 03/20/24 20:00 History multivitamin 1 tab PO DAILY 07/16/21 04/21/24 03/20/24 08:00 History omeprazole 20 mg capsule,delayed 1 cap PO DAILY@62907/16/21 04/21/24 03/20/24 08:00 History release prednisone 5 mg tablet 1 tab PO DAILY 07/16/21 04/21/24 03/20/24 08:00 History sertraline 100 mg tablet 1 tab PO DAILY@79907/16/21 04/21/24 03/20/24 08:00 History sertraline 50 mg tablet 25 mg PO DAILY@79907/16/21 04/21/24 03/20/24 08:00 History bisacodyl 10 mg rectal suppository 10 mg NV DAILY PRN Constipation 02/09/22 04/21/24 Unknown History sodium phosphates 19 gram-7 118 ml NV DAILY PRN Constipation 02/09/22 04/21/24 Unknown History gram/118 mL enema (Fleet Enema) acetaminophen 325 mg tablet 650 mg PO Q4H PRN Fever Or Pain 06/01/22 04/21/24 Unknown History magnesium hydroxide 400 mg/5 mL 30 ml PO DAILY PRN Constipation 06/01/22 04/21/24 Unknown History oral suspension (Milk of Magnesia) midodrine 5 mg tablet 5 mg PO TID 11/16/22 04/21/24 03/20/24 18:00 History peg [id number] 1 1 drp ophthalmic (eye) BID 11/16/22 04/21/24 03/20/24 20:00 History %-0.2 %-0.2 % eye drops (Artificial Tears ([id number])) guaifenesin 400 mg tablet 400 mg PO BID 02/21/23 04/21/24 03/20/24 20:00 History aspirin 81 mg chewable tablet 81 mg PO DAILY 03/21/24 04/21/24 03/20/24 08:00 History nystatin 100,000 unit/gram topical 1 appl topical BID 03/21/24 04/21/24 03/20/24 20:00 History powder topiramate 15 mg sprinkle capsule 15 mg PO DAILY@199903/21/24 04/21/24 03/20/24 20:00 History miconazole nitrate 2 % topical 1 spray topical BID 04/21/24 04/21/24 Unknown History spray powder Physical Exam 2 Vital Signs and Narrative: Vital Signs: Last Vital Signs Temp 100.7 F H 04/21/24 14:16 Pulse 91 04/21/24 16:14 Resp 23 H 04/21/24 16:14 BP 107/69 04/21/24 16:14 Pulse Ox 94 04/21/24 16:14 O2 Del Method Nasal Cannula 04/21/24 16:14 O2 Flow Rate 2 04/21/24 16:14 BMI result Body Mass Index 23.3 Results Labs 04/21/24 12:11 04/21/24 12:11 Labs: Laboratory Results - last 24 hr 04/21/24 04/21/24 04/21/24 12:11 12:16 14:27 MCV 94.2 MCH 30.8 MCHC 32.7 RDW 13.7 Plt Count 360 D MPV 10.5 Immature Gran % (Auto) 0.5 H Neut % (Auto) 82.3 H Lymph % (Auto) 9.3 L Fisher % (Auto) 6.6 Eos % (Auto) 0.9 Baso % (Auto) 0.4 Lymph # (Auto) 1.6 Fisher # (Auto) 1.1 Eos # (Auto) 0.2 Baso # (Auto) 0.1 Abs Immat Gran (auto) 0.09 H Absolute Neuts (auto) 13.8 H Absolute Nucleated RBC 0.000 Nucleated RBC % (auto) 0.0 ESR 83 H PT 14.2 H INR 1.2 H Anion Gap 11 L Estim Creat Clear Calc 117.6 Estimated GFR > 60 Random Glucose 109 Lactic Acid 2.3 H* Lactic Acid F/U @ 2Hr 0.8 Calcium 8.6 D Total Bilirubin 0.8 AST 29 ALT 6 Alkaline Phosphatase 92 C-Reactive Protein 16.91 H Total Protein 7.8 Albumin 3.4 L Urine Color Dark Yellow Urine Appearance Turbid Urine pH 5.5 Ur Specific [place] 1.020 Urine Protein 30 (1+) H Urine Glucose (UA) Negative Urine Ketones 80 Urine Blood Moderate (2+) H Urine Nitrite Positive H Ur Leukocyte Esterase Large (3+) H Urine RBC 3-5 H Urine WBC >50 H Ur Squamous Epith Cells 3-5 Urine Bacteria 3+ Hyaline Casts 3-5 Imaging Radiologist's Impressions: Impressions Pelvis CT 04/21/24 13:37 IMPRESSION: 2 x 8 x 12 cm phlegmon, right gluteal region. Concerning subacute pathologic fracture, L4 vertebra superimposed infection cannot be excluded. Electronically signed by: Fahad Lovelace MD 04/21/2024 02:17 PM [facility] [place] Assessment and Plan (1) Abscess: Status: Acute (2) Sepsis: Status: Acute Plan A 73 years old male with a PMH significant for?dementia, myasthenia gravis chronically on prednisone 5mg, COPD chronically on 2-3L NC, CAD, and HLD who presents to the ED from SNF with?right buttock abscess that has failed outpatient therapy. Sepsis 2/2 Right buttock cellulitis and abscess complicated with lactic acidosis abscess drained in the ED CT scan concerning for possible L4 fracture and infection ( it was reported before in 2022 MRI) Pending wound and blood cultures Start vanc and Zosyn, started 04/21/24 Surgery and ID consult Pending ESR , risk for OM follow Vanco trough Myasthenia gravis Continue home prednisone Presumed orthostatic hypotension Continue midodrine Mood disorder Continue home meds HLD Continue statin COPD Mild wheezing noted on exam Continue home inhalers DNR/DNI DVT Prophylaxis: Heparin Pt will require 2 overnight hospitalization for treatment of?sepsis in the setting of right buttock cellulitis and abscess. Quality Stroke Does the patient have a stroke diagnosis?: No VTE Prior VTE?: No VTE Risk Level:: Medical - moderate - high VTE Device Contraindication: Treatment Not Indicated VTE Drug Contraindication: N/A - Med Ordered
[2024-04-21] MEDS: Heparin Sodium,Porcine 5,000 UNIT/ML VIAL 5000 UNIT SUBCUT (17:29)
--- NOTE | 2024-04-21 19:47 | PC.NURSE ---
pharmacy called for patients missing medications
[2024-04-21] MEDS: Artificial Tears 15 ML DROPS 1 DROP EYE-BOTH (21:02)
[2024-04-21] MEDS: Gabapentin 300 MG CAPSULE PO (21:02)
[2024-04-21] MEDS: Melatonin 3 MG TABLET PO (21:02)
[2024-04-21] MEDS: Nystatin Powder 15 GM BOTTLE 1 APPL TOPICAL (21:02)
[2024-04-21] MEDS: Atorvastatin Calcium 10 MG TABLET PO (21:02)
[2024-04-21] MEDS: Midodrine HCl 5 MG TABLET PO (21:31)
[2024-04-22] MEDS: 0.9 % Sodium Chloride Flush 3 ML SYRINGE IVFLUSH ×3 (00:42→17:55)
[2024-04-22] MEDS: Heparin Sodium,Porcine 5,000 UNIT/ML VIAL 5000 UNIT SUBCUT ×3 (00:42→17:55)
[2024-04-22] MEDS: Piperacillin Sodium/Tazobactam 3.375 GM in 0.9 % Sodium Chloride 50 ML IV ×5 (00:42→23:46)
[2024-04-22] MEDS: vancomycin HCL 1,250 MG in 0.9 % Sodium Chloride 250 ML 166.67 MG IV (01:15)
[2024-04-22 05:33] LABS: MANUAL DIFF FLAG NO
[2024-04-22 05:34] LABS: Basophils Percent Auto 0.2 % (0-2); Eosinophils Percent Auto 0.2 % (0-4); Hematocrit 31.6 % (42.0-52.0); Hemoglobin 10.5 g/dl (14.0-18.0); Imm Gran Abs Auto 0.09 X10*3/uL (0.00-0.03); Imm Gran Pct Auto 0.7 % (0.0-0.4); Lymphocytes Absolute Auto 1.3 X10*3/uL (1.2-4.9); Lymphocytes Percent Auto 10.9 % (20-40); Mean Corpuscular HGB Conc 33.2 g/dl (31.0-36.0); Mean Corpuscular Hemoglobin 30.9 pg (27.0-33.0); Mean Corpuscular Volume 92.9 fL (80.0-98.0); Mean Platelet Volume 10.6 fL (9.4-12.4); Monocytes Absolute Auto 0.9 X10*3/uL (0.1-1.2); Neutrophils Absolute Auto 9.9 x10*3/uL (2.0-8.3); Platelet Count 323 X10*3/uL (160-400); Red Cell Distribution Width 13.6 % (11.0-16.0); White Blood Count 12.2 X10*3/uL (4.8-10.8)
[2024-04-22 05:45] VITALS: BP 112/71; PULSE 79; RESP 18; TEMP 36.6; O2SAT 95
[2024-04-22 06:01] LABS: Anion Gap 14 (12-20); Blood Urea Nitrogen 14 mg/dL (9-16); Calcium 8.4 mg/dL (8.4-10.2); Carbon Dioxide 22 mmol/L (22-29); Chloride 106 mmol/L (96-108); Creatinine Clr Calc Pharmacy 129.6; Estimated Glomerular Filt Rate > 60; Glucose Random 85 mg/dL (60-115); Potassium 3.2 mmol/L (3.3-5.1); Sodium 139 mmol/L (135-145)
[2024-04-22] MEDS: Omeprazole 20 MG CAPSULE.DR PO (06:45)
--- NOTE | 2024-04-22 08:48 | PM.CNGS ---
History of Present Illness Consult details Consult date: 04/22/24 Narrative: 53-year-old male with multiple medical problems including coronary artery disease, COPD, myasthenia gravis, dementia, brought to the ER last night the nursing because of an abscess on right buttock. This apparently had not responded to oral antibiotics. In the ER, the CT scan showed an abscess with a phlegmon measuring about 12 cm in widest dimension This apparently drained spontaneously when the patient was in the ER. He was admitted for IV antibiotics. The patient does not provide a good history at this time. The patient appears to have a very poor level of activity with a high frailty score. Review of Systems Review of Systems: The patient was not a good historian in view of his dementia Constitutional: Constitutional: Reports fever(s) Cardiovascular: Cardiovascular: Reports dyspnea Respiratory: Respiratory: Reports dyspnea PMFSH Past Medical History Medical History Abscess of right buttock Acute on chronic urinary retention COPD (chronic obstructive pulmonary disease) Compression fx, lumbar spine Myasthenia gravis Dementia High cholesterol Constipation GERD (gastroesophageal reflux disease) Depression BPH (benign prostatic hyperplasia) Compression fx, lumbar spine Compression fx, thoracic spine Myasthenia gravis Urinary retention Dementia Surgical History Surgical History H/O thymectomy Social History Social History Household Members: Other Household Members Other:: pt from [facility] Housing: Long Term Housing Other:: [facility] Do you presently have visiting nurse or other home services: Yes (Pt lives at [facility]) Alcohol intake: never Patient Tobacco Use Status: Former Tobacco user Advance Directives Date on File: 07/17/21 service: No Current occupational status: retired and disabled Meds Allergies Allergy/AdvReac Type Severity Reaction Status Date / Time bacitracin Allergy Unknown Verified 04/21/24 11:56 [From Neosporin ([id number])] iodine Allergy Unknown Verified 04/21/24 11:56 neomycin Allergy Unknown Verified 04/21/24 11:56 [From Neosporin ([id number]-jfi-gvkys)] polymyxin B Allergy Unknown Verified 04/21/24 11:56 [From Neosporin ([id number])] Active Medications: Current Medications Acetaminophen (Acetaminophen 325 Mg Tablet) 650 mg PO Q4H PRN PRN Reason: Fever Or Pain Acetaminophen (Acetaminophen 325 Mg Tablet) 650 mg PO Q6H PRN PRN Reason: Pain, Mild 1-3,fever,headache Artificial Tears (Artificial Tears 15 Ml Drops) 1 drop EYE-BOTH BID [facility] Last Admin: 04/21/24 21:02 Dose: 1 drop Aspirin (Aspirin 81 Mg Tab.Chew) 81 mg PO DAILY [facility] Atorvastatin Calcium (Atorvastatin Calcium 10 Mg Tablet) 10 mg PO BEDTIME@1999 [facility] Last Admin: 04/21/24 21:02 Dose: 10 mg Bisacodyl (Bisacodyl 10 Mg Supp.Rect) 10 mg MI DAILY PRN PRN Reason: Constipation Calcium Carbonate (Calcium Carbonate 750 Mg Tab.Chew) 750 mg PO Q4H PRN PRN Reason: Heartburn Cyanocobalamin (Cyanocobalamin (Vitamin B-12) 500 Mcg Tablet) 500 mcg PO DAILY@0800 [facility] Gabapentin (Gabapentin 300 Mg Capsule) 300 mg PO BID [facility] Last Admin: 04/21/24 21:02 Dose: 300 mg Heparin Sodium (Porcine) (Heparin Sodium,Porcine 5,000 Unit/Ml Vial) 5,000 unit SUBCUT Q8H [facility] Last Admin: 04/22/24 00:42 Dose: 5,000 unit Piperacillin Sod/Tazobactam (Sod 3.375 gm/ Sodium Chloride) 50 mls @ 100 mls/hr IV Q6H [facility] Last Infusion: 04/22/24 07:42 Dose: Infused Vancomycin HCl 1,250 mg/ (Sodium Chloride) 250 mls @ 166.667 mls/hr IV Q12H [facility] Last Infusion: 04/22/24 02:45 Dose: Infused Ketorolac Tromethamine (Ketorolac Tromethamine 30 Mg/Ml Vial) 15 mg IVPUSH Q6H PRN PRN Reason: Pain, Moderate(Pain Scale 4-6) Stop: 04/26/24 16:45 Magnesium Hydroxide (Milk Of Magnesia 30 Ml Oral.Susp) 30 ml PO DAILY PRN PRN Reason: Constipation Magnesium Hydroxide (Milk Of Magnesia 30 Ml Oral.Susp) 30 ml PO DAILY PRN PRN Reason: Constipation Melatonin (Melatonin 3 Mg Tablet) 3 mg PO BEDTIME@1999 [facility] Last Admin: 04/21/24 21:02 Dose: 3 mg Melatonin (Melatonin 3 Mg Tablet) 6 mg PO BEDTIME PRN PRN Reason: Insomnia Midodrine (Midodrine Hcl 5 Mg Tablet) 5 mg PO TID [facility] Last Admin: 04/21/24 21:31 Dose: 5 mg Morphine Sulfate (Morphine Sulfate 4 Mg/Ml Cartridge) 2 mg IVPUSH Q4H PRN; Protocol PRN Reason: Pain, Severe (Pain Scale 7-10) Multivitamins/Vitamin C (Multivitamin Tablet) 1 tab PO DAILY [facility] Non-Formulary Medication (Topiramate) 15 mg PO DAILY@1999 [facility] Nystatin (Nystatin Powder 15 Gm Bottle) 1 appl TOPICAL BID [facility]; Protocol Last Admin: 04/21/24 21:02 Dose: 1 appl Omeprazole (Omeprazole 20 Mg Capsule.Dr) 20 mg PO DAILY@629 [facility] Last Admin: 04/22/24 06:45 Dose: 20 mg Ondansetron HCl (Ondansetron Hcl 4 Mg/2 Ml Vial) 4 mg IVPUSH Q8H PRN PRN Reason: Nausea and Vomiting Pharmacy Consult (Consult Rx Vancomycin Dosing) 1 each MISCELLANE DAILY PRN PRN Reason: Consult order Prednisone (Prednisone 5 Mg Tablet) 5 mg PO DAILY [facility] Sertraline HCl (Sertraline Hcl 25 Mg Tablet) 25 mg PO DAILY@0800 [facility] Sertraline HCl (Sertraline Hcl 100 Mg Tablet) 100 mg PO DAILY@0800 [facility] Sodium Biphosphate/Sodium Phosphate (Sodium Phosphate,[place]-Dibasic 133 Ml Enema) 118 ml MI DAILY PRN PRN Reason: Constipation Sodium Chloride (0.9 % Sodium Chloride Flush 3 Ml Syringe) 3 ml IVFLUSH QSHIFT [facility] Last Admin: 04/22/24 00:42 Dose: 3 ml Home Medications ?Medication ?Instructions ?Recorded ?Confirmed ?Last Taken ?Type atorvastatin 10 mg tablet 1 tab PO BEDTIME@199907/16/21 04/21/24 03/20/24 20:00 History cyanocobalamin (vitamin B-12) 500 mcg PO DAILY@0807/16/21 04/21/24 03/20/24 08:00 History 1,000 mcg capsule gabapentin 300 mg capsule 1 cap PO BID 07/16/21 04/21/24 03/20/24 20:00 History melatonin 3 mg tablet 3 mg PO BEDTIME@199907/16/21 04/21/24 03/20/24 20:00 History multivitamin 1 tab PO DAILY 07/16/21 04/21/24 03/20/24 08:00 History omeprazole 20 mg capsule,delayed 1 cap PO DAILY@62907/16/21 04/21/24 03/20/24 08:00 History release prednisone 5 mg tablet 1 tab PO DAILY 07/16/21 04/21/24 03/20/24 08:00 History sertraline 100 mg tablet 1 tab PO DAILY@79907/16/21 04/21/24 03/20/24 08:00 History sertraline 50 mg tablet 25 mg PO DAILY@79907/16/21 04/21/24 03/20/24 08:00 History bisacodyl 10 mg rectal suppository 10 mg MI DAILY PRN Constipation 02/09/22 04/21/24 Unknown History sodium phosphates 19 gram-7 118 ml MI DAILY PRN Constipation 02/09/22 04/21/24 Unknown History gram/118 mL enema (Fleet Enema) acetaminophen 325 mg tablet 650 mg PO Q4H PRN Fever Or Pain 06/01/22 04/21/24 Unknown History magnesium hydroxide 400 mg/5 mL 30 ml PO DAILY PRN Constipation 06/01/22 04/21/24 Unknown History oral suspension (Milk of Magnesia) midodrine 5 mg tablet 5 mg PO TID 11/16/22 04/21/24 03/20/24 18:00 History peg [id number]-[id number] 1 1 drp ophthalmic (eye) BID 11/16/22 04/21/24 03/20/24 20:00 History %-0.2 %-0.2 % eye drops (Artificial Tears ([id number])) guaifenesin 400 mg tablet 400 mg PO BID 02/21/23 04/21/24 03/20/24 20:00 History aspirin 81 mg chewable tablet 81 mg PO DAILY 03/21/24 04/21/24 03/20/24 08:00 History nystatin 100,000 unit/gram topical 1 appl topical BID 03/21/24 04/21/24 03/20/24 20:00 History powder topiramate 15 mg sprinkle capsule 15 mg PO DAILY@199903/21/24 04/21/24 03/20/24 20:00 History miconazole nitrate 2 % topical 1 spray topical BID 04/21/24 04/21/24 Unknown History spray powder Physical Exam Vital Signs: Vital Signs: Last Vital Signs Temp 97.9 F 04/22/24 05:45 Pulse 79 04/22/24 05:45 Resp 18 04/22/24 05:45 BP 112/71 04/22/24 05:45 Pulse Ox 95 04/22/24 05:45 O2 Del Method Nasal Cannula 04/22/24 05:45 O2 Flow Rate 2 04/22/24 05:45 BMI result Body Mass Index 23.3 Const: Other: Answers very simple questions, frail looking General: comfortable and no acute distress Resp: Effort & Inspection: normal respiratory effort Cardio: Rate: regular rate GI: Palpation (GI): Soft to palpation Back/Spine/Pelvis: Other: Induration on the right buttock, with spontaneous drainage of large amounts of pus when pressure applied on the surrounding tissue, no spreading cellulitis Results Labs 04/23/24 12:06 04/24/24 06:52 Labs: Abnormal lab results 04/21/24 04/21/24 04/22/24 Range/Units 12:11 12:16 04:51 WBC 16.8 H 12.2 H (4.8-10.8) X10*3/uL RBC 4.12 L 3.40 L (4.60-5.80) X10*6/uL Hgb 12.7 L 10.5 L (14.0-18.0) g/dl Hct 38.8 L 31.6 L (42.0-52.0) % Immature Gran % (Auto) 0.5 H 0.7 H (0.0-0.4) % Neut % (Auto) 82.3 H 81.0 H (45-73) % Lymph % (Auto) 9.3 L 10.9 L (20-40) % Abs Immat Gran (auto) 0.09 H 0.09 H (0.00-0.03) X10*3/uL Absolute Neuts (auto) 13.8 H 9.9 H (2.0-8.3) x10*3/uL ESR 83 H (0-15) MM/HR PT 14.2 H (10.9-12.4) SEC INR 1.2 H (0.9-1.1) Potassium 3.2 L D (3.3-5.1) mmol/L Anion Gap 11 L (12-20) Lactic Acid 2.3 H* (0.5-2.0) mmol/L C-Reactive Protein 16.91 H (< or = 0.50) mg/dL Albumin 3.4 L (3.5-5.0) g/dL Urine Protein 30 (1+) H (Neg-Trace) mg/dL Urine Blood Moderate (2+) H (Negative) Urine Nitrite Positive H (Negative) Ur Leukocyte Esterase Large (3+) H (Negative) Urine RBC 3-5 H (0-2) /HPF Urine WBC >50 H (0-5) /HPF Short CBC 04/21/24 04/22/24 Range/Units 12:11 04:51 WBC 16.8 H 12.2 H (4.8-10.8) X10*3/uL Hgb 12.7 L 10.5 L (14.0-18.0) g/dl Hct 38.8 L 31.6 L (42.0-52.0) % Plt Count 360 D 323 (160-400) X10*3/uL BMP 04/21/24 04/22/24 12:11 04:51 Sodium 138 139 Potassium 4.2 3.2 L D Chloride 105 106 Carbon Dioxide 26 22 BUN 14 14 Creatinine 0.65 0.59 Calcium 8.6 D 8.4 Liver Function 04/21/24 Range/Units 12:11 Total Bilirubin 0.8 (0.0-1.0) mg/dL AST 29 (5-37) U/L ALT 6 (0-40) U/L Alkaline Phosphatase 92 (39-117) U/L Albumin 3.4 L (3.5-5.0) g/dL Urine 04/21/24 Range/Units 12:11 Urine Color Dark Yellow Urine Appearance Turbid Urine pH 5.5 (5.0-9.0) Ur Specific [place] 1.020 (1.005-1.025) Urine Protein 30 (1+) H (Neg-Trace) mg/dL Urine Glucose (UA) Negative (Negative) mg/dL All other labs normal. Laboratory Results WBC 12.2 X10*3/uL (4.8-10.8) H 04/22/24 04:51 RBC 3.40 X10*6/uL (4.60-5.80) L 04/22/24 04:51 Hgb 10.5 g/dl (14.0-18.0) L 04/22/24 04:51 Hct 31.6 % (42.0-52.0) L 04/22/24 04:51 MCV 92.9 fL (80.0-98.0) 04/22/24 04:51 MCH 30.9 pg (27.0-33.0) 04/22/24 04:51 MCHC 33.2 g/dl (31.0-36.0) 04/22/24 04:51 RDW 13.6 % (11.0-16.0) 04/22/24 04:51 Plt Count 323 X10*3/uL (160-400) 04/22/24 04:51 MPV 10.6 fL (9.4-12.4) 04/22/24 04:51 Immature Gran % (Auto) 0.7 % (0.0-0.4) H 04/22/24 04:51 Neut % (Auto) 81.0 % (45-73) H 04/22/24 04:51 Lymph % (Auto) 10.9 % (20-40) L 04/22/24 04:51 [place] % (Auto) 7.0 % (2-11) 04/22/24 04:51 Eos % (Auto) 0.2 % (0-4) 04/22/24 04:51 Baso % (Auto) 0.2 % (0-2) 04/22/24 04:51 Lymph # (Auto) 1.3 X10*3/uL (1.2-4.9) 04/22/24 04:51 [place] # (Auto) 0.9 X10*3/uL (0.1-1.2) 04/22/24 04:51 Eos # (Auto) 0.0 X10*3/uL (0.0-0.4) 04/22/24 04:51 Baso # (Auto) 0.0 X10*3/uL (0.0-0.2) 04/22/24 04:51 Abs Immat Gran (auto) 0.09 X10*3/uL (0.00-0.03) H 04/22/24 04:51 Absolute Neuts (auto) 9.9 x10*3/uL (2.0-8.3) H 04/22/24 04:51 Absolute Nucleated RBC 0.000 X10*3/uL (0.0-0.012) 04/22/24 04:51 Nucleated RBC % (auto) 0.0 /100WBC (0.0-0.2) 04/22/24 04:51 ESR 83 MM/HR (0-15) H 04/21/24 12:11 PT 14.2 SEC (10.9-12.4) H 04/21/24 12:11 INR 1.2 (0.9-1.1) H 04/21/24 12:11 Sodium 139 mmol/L (135-145) 04/22/24 04:51 Potassium 3.2 mmol/L (3.3-5.1) L D 04/22/24 04:51 Chloride 106 mmol/L (96-108) 04/22/24 04:51 Carbon Dioxide 22 mmol/L (22-29) 04/22/24 04:51 Anion Gap 14 (12-20) 04/22/24 04:51 BUN 14 mg/dL (9-16) 04/22/24 04:51 Creatinine 0.59 mg/dL (0.5-1.4) 04/22/24 04:51 Estim Creat Clear Calc 129.6 04/22/24 04:51 Estimated GFR > 60 04/22/24 04:51 Random Glucose 85 mg/dL (60-115) 04/22/24 04:51 Lactic Acid 2.3 mmol/L (0.5-2.0) H* 04/21/24 12:11 Lactic Acid F/U @ 2Hr 0.8 mmol/L (0.5-2.0) 04/21/24 14:27 Calcium 8.4 mg/dL (8.4-10.2) 04/22/24 04:51 Total Bilirubin 0.8 mg/dL (0.0-1.0) 04/21/24 12:11 AST 29 U/L (5-37) 04/21/24 12:11 ALT 6 U/L (0-40) 04/21/24 12:11 Alkaline Phosphatase 92 U/L (39-117) 04/21/24 12:11 C-Reactive Protein 16.91 mg/dL (< or = 0.50) H 04/21/24 12:16 Total Protein 7.8 g/dL (6.5-8.0) 04/21/24 12:11 Albumin 3.4 g/dL (3.5-5.0) L 04/21/24 12:11 Urine Color Dark Yellow 04/21/24 12:11 Urine Appearance Turbid 04/21/24 12:11 Urine pH 5.5 (5.0-9.0) 04/21/24 12:11 Ur Specific [place] 1.020 (1.005-1.025) 04/21/24 12:11 Urine Protein 30 (1+) mg/dL (Neg-Trace) H 04/21/24 12:11 Urine Glucose (UA) Negative mg/dL (Negative) 04/21/24 12:11 Urine Ketones 80 mg/dL (Negative) 04/21/24 12:11 Urine Blood Moderate (2+) (Negative) H 04/21/24 12:11 Urine Nitrite Positive (Negative) H 04/21/24 12:11 Ur Leukocyte Esterase Large (3+) (Negative) H 04/21/24 12:11 Urine RBC 3-5 /HPF (0-2) H 04/21/24 12:11 Urine WBC >50 /HPF (0-5) H 04/21/24 12:11 Ur Squamous Epith Cells 3-5 /HPF (0-2) 04/21/24 12:11 Urine Bacteria 3+ (None Seen) 04/21/24 12:11 Hyaline Casts 3-5 /LPF (0-2) 04/21/24 12:[address] 04/21/24 13:37 IMPRESSION: 2 x 8 x 12 cm phlegmon, right gluteal region. Concerning subacute pathologic fracture, L4 vertebra superimposed infection cannot be excluded. Electronically signed by: Fahad Lovelace MD 04/21/2024 02:17 PM [facility] [place] Assessment and Plan (1) Abscess of right buttock: Status: Acute Plan This is spontaneously draining. Large amounts of pus was drained when I applied pressure on the surrounding tissue. There is note of an adequate open wound I do not feel there is a need to do an incision at this time Abscess cultures should be followed up. I have changed his dressings with dry gauze and this should be changed at least once or twice a day. He appears comfortable at this time. He did have elevated lactic acid as well as fever on admission I will follow along while he is in the hospital. Review of his records show that he had a similar abscess in 2022. Procedures Date of Service Date of Service: 04/24/24
[2024-04-22] MEDS: predniSONE 5 MG TABLET PO (09:16)
[2024-04-22] MEDS: Sertraline HCL 25 MG TABLET PO (09:17)
[2024-04-22] MEDS: Cyanocobalamin (Vitamin B-12) 500 MCG TABLET PO (09:17)
[2024-04-22] MEDS: Midodrine HCl 5 MG TABLET PO ×3 (09:17→20:46)
[2024-04-22] MEDS: Sertraline HCL 100 MG TABLET PO (09:17)
[2024-04-22] MEDS: Aspirin 81 MG TAB.CHEW PO (09:20)
[2024-04-22] MEDS: Gabapentin 300 MG CAPSULE PO ×2 (09:20→20:48)
[2024-04-22] MEDS: Multivitamin TABLET 1 TAB PO (09:20)
[2024-04-22] MEDS: Nystatin Powder 15 GM BOTTLE 1 APPL TOPICAL (09:30)
[2024-04-22 10:25] LABS: Vancomycin Random 24.9 mcg/mL (15-20)
--- NOTE | 2024-04-22 10:33 | HE.PHANOTE ---
Addendum entered by Michael Garcia 04/22/24 10:37: Edit, will actually reduce to 1000mg q12h for projected trough of ~14.0 mg/L. Next level tomorrow at 1100. Original Note: Re Vanco Random was 24.9 at 1000, about an hour early. True trough around 16.0mg/L, will continue to monitor incase dose needs to be reduced.
--- NOTE | 2024-04-22 12:59 | P.PNIM_ITS ---
Subjective Subjective Date of Service: 04/22/24 Interval History: seen and examined this AM denies buttock pain seen by surg earlier Physical Exam 2 Vital Signs: Vital Signs: Last Vital Signs Temp 97.9 F 04/22/24 05:45 Pulse 79 04/22/24 05:45 Resp 18 04/22/24 05:45 BP 112/71 04/22/24 05:45 Pulse Ox 95 04/22/24 05:45 O2 Del Method Nasal Cannula 04/22/24 05:45 O2 Flow Rate 2 04/22/24 05:45 BMI result Body Mass Index 23.3 Const: Other: General - no acute distress, appears comfortable Cardiovascular - regular rate and rhythm, S1-S2 Lungs - normal respiratory effort, clear to auscultation bilaterally, no wheezing Abdomen - soft, nontender, no rebound or guarding Extremities - no edema bilaterally Skin - buttock dressing in place Neuro - awake and alert, no focal deficits Objective Data Active Medications Acetaminophen (Acetaminophen 325 Mg Tablet) 650 mg PO Q4H PRN PRN Reason: Fever Or Pain Acetaminophen (Acetaminophen 325 Mg Tablet) 650 mg PO Q6H PRN PRN Reason: Pain, Mild 1-3,fever,headache Artificial Tears (Artificial Tears 15 Ml Drops) 1 drop EYE-BOTH BID [facility] Last Admin: 04/22/24 09:20 Dose: Not Given Documented By: YESSY Non-Admin Reason: Previously Administered Aspirin (Aspirin 81 Mg Tab.Chew) 81 mg PO DAILY [facility] Last Admin: 04/22/24 09:20 Dose: 81 mg Documented By: YESSY Atorvastatin Calcium (Atorvastatin Calcium 10 Mg Tablet) 10 mg PO BEDTIME@2000 [facility] Last Admin: 04/21/24 21:02 Dose: 10 mg Documented By: NITHYA Bisacodyl (Bisacodyl 10 Mg Supp.Rect) 10 mg TN DAILY PRN PRN Reason: Constipation Calcium Carbonate (Calcium Carbonate 750 Mg Tab.Chew) 750 mg PO Q4H PRN PRN Reason: Heartburn Cyanocobalamin (Cyanocobalamin (Vitamin B-12) 500 Mcg Tablet) 500 mcg PO DAILY@0800 [facility] Last Admin: 04/22/24 09:17 Dose: 500 mcg Documented By: YESSY Gabapentin (Gabapentin 300 Mg Capsule) 300 mg PO BID [facility] Last Admin: 04/22/24 09:20 Dose: 300 mg Documented By: YESSY Heparin Sodium (Porcine) (Heparin Sodium,Porcine 5,000 Unit/Ml Vial) 5,000 unit SUBCUT Q8H [facility] Last Admin: 04/22/24 09:22 Dose: 5,000 unit Documented By: YESSY Piperacillin Sod/Tazobactam (Sod 3.375 gm/ Sodium Chloride) 50 mls @ 100 mls/hr IV Q6H [facility] Last Admin: 04/22/24 12:28 Dose: 100 mls/hr Documented By: YESSY Vancomycin HCl 1,000 mg/ (Sodium Chloride) 270 mls @ 270 mls/hr IV Q12H [facility] Ketorolac Tromethamine (Ketorolac Tromethamine 30 Mg/Ml Vial) 15 mg IVPUSH Q6H PRN PRN Reason: Pain, Moderate(Pain Scale 4-6) Stop: 04/26/24 16:45 Magnesium Hydroxide (Milk Of Magnesia 30 Ml Oral.Susp) 30 ml PO DAILY PRN PRN Reason: Constipation Magnesium Hydroxide (Milk Of Magnesia 30 Ml Oral.Susp) 30 ml PO DAILY PRN PRN Reason: Constipation Melatonin (Melatonin 3 Mg Tablet) 3 mg PO BEDTIME@1999 [facility] Last Admin: 04/21/24 21:02 Dose: 3 mg Documented By: NITHYA Melatonin (Melatonin 3 Mg Tablet) 6 mg PO BEDTIME PRN PRN Reason: Insomnia Midodrine (Midodrine Hcl 5 Mg Tablet) 5 mg PO TID [facility] Last Admin: 04/22/24 09:17 Dose: 5 mg Documented By: YESSY Morphine Sulfate (Morphine Sulfate 4 Mg/Ml Cartridge) 2 mg IVPUSH Q4H PRN; Protocol PRN Reason: Pain, Severe (Pain Scale 7-10) Multivitamins/Vitamin C (Multivitamin Tablet) 1 tab PO DAILY [facility] Last Admin: 04/22/24 09:20 Dose: 1 tab Documented By: YESSY Non-Formulary Medication (Topiramate) 15 mg PO DAILY@1999 [facility] Nystatin (Nystatin Powder 15 Gm Bottle) 1 appl TOPICAL BID [facility]; Protocol Last Admin: 04/22/24 09:30 Dose: 1 appl Documented By: YESSY Omeprazole (Omeprazole 20 Mg Capsule.) 20 mg PO DAILY@06 [facility] Last Admin: 04/22/24 06:45 Dose: 20 mg Documented By: COSME Ondansetron HCl (Ondansetron Hcl 4 Mg/2 Ml Vial) 4 mg IVPUSH Q8H PRN PRN Reason: Nausea and Vomiting Pharmacy Consult (Consult Rx Vancomycin Dosing) 1 each MISCELLANE DAILY PRN PRN Reason: Consult order Prednisone (Prednisone 5 Mg Tablet) 5 mg PO DAILY [facility] Last Admin: 04/22/24 09:16 Dose: 5 mg Documented By: YESSY Sertraline HCl (Sertraline Hcl 25 Mg Tablet) 25 mg PO DAILY@0800 [facility] Last Admin: 04/22/24 09:17 Dose: 25 mg Documented By: YESSY Sertraline HCl (Sertraline Hcl 100 Mg Tablet) 100 mg PO DAILY@0800 [facility] Last Admin: 04/22/24 09:17 Dose: 100 mg Documented By: YESSY Sodium Biphosphate/Sodium Phosphate (Sodium Phosphate,Pettis-Dibasic 133 Ml Enema) 118 ml TN DAILY PRN PRN Reason: Constipation Sodium Chloride (0.9 % Sodium Chloride Flush 3 Ml Syringe) 3 ml IVFLUSH QSHIFT [facility] Last Admin: 04/22/24 09:16 Dose: 3 ml Documented By: YESSY Labs 04/22/24 04:51 04/22/24 04:51 Labs: Laboratory Results - last 24 hr 04/21/24 04/21/24 04/21/24 12:11 12:16 14:27 MCV MCH MCHC RDW Plt Count MPV Immature Gran % (Auto) Neut % (Auto) Lymph % (Auto) Pettis % (Auto) Eos % (Auto) Baso % (Auto) Lymph # (Auto) Pettis # (Auto) Eos # (Auto) Baso # (Auto) Abs Immat Gran (auto) Absolute Neuts (auto) Absolute Nucleated RBC Nucleated RBC % (auto) ESR 83 H Anion Gap Estim Creat Clear Calc Estimated GFR Random Glucose Lactic Acid F/U @ 2Hr 0.8 Calcium C-Reactive Protein 16.91 H Random Vancomycin 04/22/24 04/22/24 04:51 10:00 MCV 92.9 MCH 30.9 MCHC 33.2 RDW 13.6 Plt Count 323 MPV 10.6 Immature Gran % (Auto) 0.7 H Neut % (Auto) 81.0 H Lymph % (Auto) 10.9 L Pettis % (Auto) 7.0 Eos % (Auto) 0.2 Baso % (Auto) 0.2 Lymph # (Auto) 1.3 Pettis # (Auto) 0.9 Eos # (Auto) 0.0 Baso # (Auto) 0.0 Abs Immat Gran (auto) 0.09 H Absolute Neuts (auto) 9.9 H Absolute Nucleated RBC 0.000 Nucleated RBC % (auto) 0.0 ESR Anion Gap 14 Estim Creat Clear Calc 129.6 Estimated GFR > 60 Random Glucose 85 Lactic Acid F/U @ 2Hr Calcium 8.4 C-Reactive Protein Random Vancomycin 24.9 H Microbiology Microbiology Results: Microbiology 04/21/24 Unknown Urine Culture - Preliminary Urine clean catch - Clean Catch Midstream Culture in progress. 04/21/24 12:11 Gram Stain - Final Buttock Right Routine Culture - Preliminary Gram negative ta Assessment and Plan (1) Abscess of right buttock: Status: Acute (2) Sepsis: Status: Acute Plan A 73 years old male with a PMH significant for?dementia, myasthenia gravis chronically on prednisone 5mg, COPD chronically on 2-3L NC, CAD, and HLD who presents to the ED from SNF with?right buttock abscess that has failed outpatient therapy. Sepsis 2/2 Right buttock cellulitis and abscess complicated with lactic acidosis abscess drained in the ED CT scan concerning for possible L4 fracture and infection ( it was reported before in 2022 MRI), ESR in the 80s -- will ask ID input Pending wound and blood cultures Start vanc and Zosyn, started 04/21/24 Surg input appreciated follow labs and cultures Myasthenia gravis Continue home prednisone Presumed orthostatic hypotension Continue midodrine Mood disorder Continue home meds HLD Continue statin COPD / chronic hypoxic resp failure continue baseline meds and o2 DNR/DNI DVT Prophylaxis: Heparin Quality Stroke Does the patient have a stroke diagnosis?: No VTE Prior VTE?: No VTE Risk Level:: Medical - moderate - high VTE Device Contraindication: Treatment Not Indicated VTE Drug Contraindication: N/A - Med Ordered
[2024-04-22] MEDS: vancomycin HCL 1,000 MG in 0.9 % Sodium Chloride 250 ML 270 MG IV (13:26)
--- NOTE | 2024-04-22 14:08 | MHC.CM.PN ---
IMM 04/22/24, sent by c. mail to HCP, Mustapha. Pt resides snf at [facility]. He has baseline confusion due to Dementia. HCP on file: [place] and WILBERT Leung for Must[facility]ha, awaiting return call. DCP: pt. will return to [facility] via BLS at DC. CM to follow for DC needs.
[2024-04-22 14:35] VITALS: BP 109/60; PULSE 84; RESP 17; TEMP 36.1; O2SAT 98
[2024-04-22 19:54] VITALS: BP 110/72; PULSE 62; RESP 15; TEMP 36.8; O2SAT 95
--- NOTE | 2024-04-22 19:56 | MHC.EDTECH ---
This pct assumed care of Patient at 1915 ,vitals taken ,Patient was reposition and boosted up in bed ,Patient awake watching television ,All safety measure in Place .
[2024-04-22 20:46] VITALS: BP 110/72
[2024-04-22] MEDS: Atorvastatin Calcium 10 MG TABLET PO (20:47)
[2024-04-22] MEDS: Melatonin 3 MG TABLET PO (20:47)
[2024-04-22 22:00] VITALS: BP 116/76; PULSE 81; RESP 16; TEMP 36.6; O2SAT 95
[2024-04-22 22:04] VITALS: BMI 21.8
--- NOTE | 2024-04-22 23:07 | P.CNID_ITS ---
History of Present Illness Data of Consult Service Date: 04/22/24 Requesting physician: Brijesh Pacheco Primary Care Provider: Curt Brewster MD HPI Reason for consult: buttock infection,?L4 infection He presents with right buttock wound draining in SNF. He had drainage occuring in ER,gram negative ta. He has h/o MRSA. He also has ?L4 infection also found 2022 MRI. He has 2 x8x12 cm area purulence. Review of Systems 2 Review of Systems: Yes all other systems are reviewed and are negative [facility] Past Medical History Medical History Abscess of right buttock Acute on chronic urinary retention COPD (chronic obstructive pulmonary disease) Compression fx, lumbar spine Myasthenia gravis Dementia High cholesterol Constipation GERD (gastroesophageal reflux disease) Depression BPH (benign prostatic hyperplasia) Compression fx, lumbar spine Compression fx, thoracic spine Myasthenia gravis Urinary retention Dementia Family History Family history: reviewed and not pertinent Surgical History Surgical History H/O thymectomy Social History Social History Household Members: Other Household Members Other:: pt from [facility] Housing: Group Home Housing Other:: [facility] Do you presently have visiting nurse or other home services: Yes (Pt lives at [facility]) Alcohol intake: never Patient Tobacco Use Status: Former Tobacco user Advance Directives Date on File: 07/17/21 service: No Current occupational status: retired and disabled Meds Allergies Allergy/AdvReac Type Severity Reaction Status Date / Time bacitracin Allergy Unknown Verified 04/21/24 11:56 [From Neosporin ([id number])] iodine Allergy Unknown Verified 04/21/24 11:56 neomycin Allergy Unknown Verified 04/21/24 11:56 [From Neosporin ([id number])] polymyxin B Allergy Unknown Verified 04/21/24 11:56 [From Neosporin ([id number])] Active Medications: Current Medications Acetaminophen (Acetaminophen 325 Mg Tablet) 650 mg PO Q4H PRN PRN Reason: Fever Or Pain Acetaminophen (Acetaminophen 325 Mg Tablet) 650 mg PO Q6H PRN PRN Reason: Pain, Mild 1-3,fever,headache Artificial Tears (Artificial Tears 15 Ml Drops) 1 drop EYE-BOTH BID [facility] Last Admin: 04/22/24 09:20 Dose: Not Given Aspirin (Aspirin 81 Mg Tab.Chew) 81 mg PO DAILY [facility] Last Admin: 04/22/24 09:20 Dose: 81 mg Atorvastatin Calcium (Atorvastatin Calcium 10 Mg Tablet) 10 mg PO BEDTIME@1999 [facility] Last Admin: 04/22/24 20:47 Dose: 10 mg Bisacodyl (Bisacodyl 10 Mg Supp.Rect) 10 mg KS DAILY PRN PRN Reason: Constipation Calcium Carbonate (Calcium Carbonate 750 Mg Tab.Chew) 750 mg PO Q4H PRN PRN Reason: Heartburn Cyanocobalamin (Cyanocobalamin (Vitamin B-12) 500 Mcg Tablet) 500 mcg PO DAILY@0800 [facility] Last Admin: 04/22/24 09:17 Dose: 500 mcg Gabapentin (Gabapentin 300 Mg Capsule) 300 mg PO BID [facility] Last Admin: 04/22/24 20:48 Dose: 300 mg Heparin Sodium (Porcine) (Heparin Sodium,Porcine 5,000 Unit/Ml Vial) 5,000 unit SUBCUT Q8H [facility] Last Admin: 04/22/24 17:55 Dose: 5,000 unit Piperacillin Sod/Tazobactam (Sod 3.375 gm/ Sodium Chloride) 50 mls @ 100 mls/hr IV Q6H [facility] Last Infusion: 04/22/24 18:35 Dose: Infused Vancomycin HCl 1,000 mg/ (Sodium Chloride) 270 mls @ 270 mls/hr IV Q12H [facility] Last Infusion: 04/22/24 14:40 Dose: Infused Ketorolac Tromethamine (Ketorolac Tromethamine 30 Mg/Ml Vial) 15 mg IVPUSH Q6H PRN PRN Reason: Pain, Moderate(Pain Scale 4-6) Stop: 04/26/24 16:45 Magnesium Hydroxide (Milk Of Magnesia 30 Ml Oral.Susp) 30 ml PO DAILY PRN PRN Reason: Constipation Magnesium Hydroxide (Milk Of Magnesia 30 Ml Oral.Susp) 30 ml PO DAILY PRN PRN Reason: Constipation Melatonin (Melatonin 3 Mg Tablet) 3 mg PO BEDTIME@1999 [facility] Last Admin: 04/22/24 20:47 Dose: 3 mg Melatonin (Melatonin 3 Mg Tablet) 6 mg PO BEDTIME PRN PRN Reason: Insomnia Midodrine (Midodrine Hcl 5 Mg Tablet) 5 mg PO TID [facility] Last Admin: 04/22/24 20:46 Dose: 5 mg Morphine Sulfate (Morphine Sulfate 4 Mg/Ml Cartridge) 2 mg IVPUSH Q4H PRN; Protocol PRN Reason: Pain, Severe (Pain Scale 7-10) Multivitamins/Vitamin C (Multivitamin Tablet) 1 tab PO DAILY [facility] Last Admin: 04/22/24 09:20 Dose: 1 tab Non-Formulary Medication (Topiramate) 15 mg PO DAILY@1999 [facility] Nystatin (Nystatin Powder 15 Gm Bottle) 1 appl TOPICAL BID [facility]; Protocol Last Admin: 04/22/24 09:30 Dose: 1 appl Omeprazole (Omeprazole 20 Mg Capsule.Dr) 20 mg PO DAILY@629 [facility] Last Admin: 04/22/24 06:45 Dose: 20 mg Ondansetron HCl (Ondansetron Hcl 4 Mg/2 Ml Vial) 4 mg IVPUSH Q8H PRN PRN Reason: Nausea and Vomiting Pharmacy Consult (Consult Rx Vancomycin Dosing) 1 each MISCELLANE DAILY PRN PRN Reason: Consult order Prednisone (Prednisone 5 Mg Tablet) 5 mg PO DAILY [facility] Last Admin: 04/22/24 09:16 Dose: 5 mg Sertraline HCl (Sertraline Hcl 25 Mg Tablet) 25 mg PO DAILY@0800 [facility] Last Admin: 04/22/24 09:17 Dose: 25 mg Sertraline HCl (Sertraline Hcl 100 Mg Tablet) 100 mg PO DAILY@0800 [facility] Last Admin: 04/22/24 09:17 Dose: 100 mg Sodium Biphosphate/Sodium Phosphate (Sodium Phosphate,Wirt-Dibasic 133 Ml Enema) 118 ml KS DAILY PRN PRN Reason: Constipation Sodium Chloride (0.9 % Sodium Chloride Flush 3 Ml Syringe) 3 ml IVFLUSH QSHIFT [facility] Last Admin: 04/22/24 17:55 Dose: 3 ml Home Medications ?Medication ?Instructions ?Recorded ?Confirmed ?Last Taken ?Type atorvastatin 10 mg tablet 1 tab PO BEDTIME@199907/16/21 04/21/24 03/20/24 20:00 History cyanocobalamin (vitamin B-12) 500 mcg PO DAILY@0807/16/21 04/21/24 03/20/24 08:00 History 1,000 mcg capsule gabapentin 300 mg capsule 1 cap PO BID 07/16/21 04/21/24 03/20/24 20:00 History melatonin 3 mg tablet 3 mg PO BEDTIME@199907/16/21 04/21/24 03/20/24 20:00 History multivitamin 1 tab PO DAILY 07/16/21 04/21/24 03/20/24 08:00 History omeprazole 20 mg capsule,delayed 1 cap PO DAILY@62907/16/21 04/21/24 03/20/24 08:00 History release prednisone 5 mg tablet 1 tab PO DAILY 07/16/21 04/21/24 03/20/24 08:00 History sertraline 100 mg tablet 1 tab PO DAILY@79907/16/21 04/21/24 03/20/24 08:00 History sertraline 50 mg tablet 25 mg PO DAILY@79907/16/21 04/21/24 03/20/24 08:00 History bisacodyl 10 mg rectal suppository 10 mg KS DAILY PRN Constipation 02/09/22 04/21/24 Unknown History sodium phosphates 19 gram-7 118 ml KS DAILY PRN Constipation 02/09/22 04/21/24 Unknown History gram/118 mL enema (Fleet Enema) acetaminophen 325 mg tablet 650 mg PO Q4H PRN Fever Or Pain 06/01/22 04/21/24 Unknown History magnesium hydroxide 400 mg/5 mL 30 ml PO DAILY PRN Constipation 06/01/22 04/21/24 Unknown History oral suspension (Milk of Magnesia) midodrine 5 mg tablet 5 mg PO TID 11/16/22 04/21/24 03/20/24 18:00 History peg [id number] 1 1 drp ophthalmic (eye) BID 11/16/22 04/21/24 03/20/24 20:00 History %-0.2 %-0.2 % eye drops (Artificial Tears ([id number])) guaifenesin 400 mg tablet 400 mg PO BID 02/21/23 04/21/24 03/20/24 20:00 History aspirin 81 mg chewable tablet 81 mg PO DAILY 03/21/24 04/21/24 03/20/24 08:00 History nystatin 100,000 unit/gram topical 1 appl topical BID 03/21/24 04/21/24 03/20/24 20:00 History powder topiramate 15 mg sprinkle capsule 15 mg PO DAILY@199903/21/24 04/21/24 03/20/24 20:00 History miconazole nitrate 2 % topical 1 spray topical BID 04/21/24 04/21/24 Unknown History spray powder Physical Exam 2 Vital Signs: Vital Signs: Last Vital Signs Temp 97.9 F 04/22/24 22:00 Pulse 81 04/22/24 22:00 Resp 16 04/22/24 22:00 BP 116/76 04/22/24 22:00 Pulse Ox 95 04/22/24 22:00 O2 Del Method Nasal Cannula 04/22/24 22:00 O2 Flow Rate 2 04/22/24 22:00 BMI result Body Mass Index 21.8 Const: General: cooperative HEENT: Head: Yes normal to inspection Face and sinus: Yes normal facial exam Mouth: Normal oral and palatal mucosa present Teeth and gingiva: d entition normal Eyes: General: appearance normal, both eyes and all related structures P upils: Equal, round and reactive pupils present Resp: Effort & Inspection: normal respiratory effort Cardio: Rate: regular rate Rhythm: regular rhythm GI: Palpation (GI): Soft to palpation and nontender Back/Spine/Pelvis: Other: buttock exudate Skin: General skin exam: no rashes or lesions noted Neuro: General: moves all extremities Cranial nerves: Yes Equal, round and reactive pupils present Extrem: General: Yes normal to inspection Psych: Appearance: grossly normal Results Labs 04/22/24 04:51 04/22/24 04:51 Labs: Short CBC 04/22/24 Range/Units 04:51 WBC 12.2 H (4.8-10.8) X10*3/uL Hgb 10.5 L (14.0-18.0) g/dl Hct 31.6 L (42.0-52.0) % Plt Count 323 (160-400) X10*3/uL BMP 04/22/24 04:51 Sodium 139 Potassium 3.2 L D Chloride 106 Carbon Dioxide 22 BUN 14 Creatinine 0.59 Calcium 8.4 Microbiology Microbiology Results: Microbiology 04/21/24 12:16 Blood - Venous Blood Culture - Preliminary No growth after 24 hours. 04/21/24 12:11 Blood - Venous Blood Culture - Preliminary No growth after 24 hours. 04/21/24 Unknown Urine clean catch - Clean Catch Midstream Urine Culture - Preliminary Culture in progress. 04/21/24 12:11 Buttock Right Gram Stain - Final 04/21/24 12:11 Buttock Right Routine Culture - Preliminary Gram negative ta Assessment and Plan (1) Abscess of right buttock: Status: Acute (2) Sepsis: Status: Acute Plan Since gram negative found drainage would continue both Vancomycin and Zosyn with h/o MRSA. Could repeat MRI L4 area but may not be helpful. Await final cultures,possible po option
[2024-04-22 23:29] VITALS: BP 117/73; PULSE 79; RESP 20; TEMP 36.6; O2SAT 99
[2024-04-23] MEDS: vancomycin HCL 1,000 MG in 0.9 % Sodium Chloride 250 ML 270 MG IV (01:48)
[2024-04-23] MEDS: Heparin Sodium,Porcine 5,000 UNIT/ML VIAL 5000 UNIT SUBCUT ×3 (01:48→18:16)
[2024-04-23] MEDS: 0.9 % Sodium Chloride Flush 3 ML SYRINGE IVFLUSH ×2 (02:04→20:14)
[2024-04-23] MEDS: Piperacillin Sodium/Tazobactam 3.375 GM in 0.9 % Sodium Chloride 50 ML IV ×3 (05:42→20:11)
[2024-04-23] MEDS: Omeprazole 20 MG CAPSULE.DR PO (05:42)
[2024-04-23 07:38] VITALS: BP 102/71; PULSE 75; RESP 20; TEMP 36.4; O2SAT 96
--- NOTE | 2024-04-23 09:20 | HO.WOUND ---
Wound Consult: Initial 73yr old?male admitted to [facility] on 04/21/24- See progress notes and H&P for detailed history.? Wound consult placed for Right Buttock abscess.? Patient agreeable to assessment and photo documentation.? Patient is pleasantly confused at baseline - provider and direct care team aware. Right buttock Etiology: ?Abscess - ?Present on Admission Measurements: 0.5cm x 0.4cm x 2cm with circumferential undermining Wound Bed: unable to visualize Drainage / Odor: copious amount of serosanguinous purulent drainage Edges: unattached ? Pauline wound: ? red purple pigmentation - Induration and Fluctuance noted Pain: tenderness noted Goals of Treatment: ? Light packing to allow for continued drainage Recommendations: 1. Turn and Reposition every 2 hours and as needed for patient comfort.? Use pillows or wedges to support off loading positions. 2. Off Load all bony prominences with use of pillows and heel boots if needed.? Apply Preventative foams where needed. ? 3. Monitor for incontinence and moisture control, use barrier creams when needed for prevention and treatment. 4. Provide adequate and supplemental nutrition.? 5. Order low air loss mattress. 6. When applicable maintain blood glucose levels per Providers order. 7. Right Buttock - Off Load Pressure with Q2 hr turns and use of pillows - Cleanse and irrigate with NS, pat dry. Apply skin prep to periwound. Lightly pack wound bed with Packing Strip be sure to leave a wick for easy removal. Cover with dry gauze, ABD pad and tape. Change daily. Re-consult wound care Nurse for wound deterioration or wound changes.
[2024-04-23] MEDS: Aspirin 81 MG TAB.CHEW PO (09:21)
[2024-04-23] MEDS: Gabapentin 300 MG CAPSULE PO ×2 (09:21→20:10)
[2024-04-23] MEDS: Sertraline HCL 25 MG TABLET PO (09:21)
[2024-04-23] MEDS: Cyanocobalamin (Vitamin B-12) 500 MCG TABLET PO (09:21)
[2024-04-23] MEDS: predniSONE 5 MG TABLET PO (09:21)
[2024-04-23] MEDS: Sertraline HCL 100 MG TABLET PO (09:21)
[2024-04-23] MEDS: Midodrine HCl 5 MG TABLET PO ×3 (09:21→20:11)
[2024-04-23] MEDS: Multivitamin TABLET 1 TAB PO (09:21)
[2024-04-23 11:28] VITALS: BMI 22.5
--- NOTE | 2024-04-23 11:29 | MHC.CLN ---
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 40G PROTEIN MONITOR PO INTAKE CLOSELY
--- NOTE | 2024-04-23 11:38 | P.PNIM_ITS ---
Subjective Subjective Date of Service: 04/23/24 Interval History: seen and examined this AM pleasantly confused, doesnt know where he is repeating same statements Physical Exam 2 Vital Signs: Vital Signs: Last Vital Signs Temp 97.5 F 04/23/24 07:38 Pulse 75 04/23/24 07:38 Resp 20 04/23/24 07:38 BP 102/71 04/23/24 07:38 Pulse Ox 96 04/23/24 07:38 O2 Del Method Nasal Cannula 04/23/24 07:38 O2 Flow Rate 2 04/23/24 07:38 BMI result Body Mass Index 22.5 Const: Other: General - no acute distress, appears comfortable Cardiovascular - regular rate and rhythm, S1-S2 Lungs - normal respiratory effort, clear to auscultation bilaterally, no wheezing Abdomen - soft, nontender, no rebound or guarding Extremities - no edema bilaterally Neuro - awake and alert, no focal deficits Objective Data Active Medications Acetaminophen (Acetaminophen 325 Mg Tablet) 650 mg PO Q4H PRN PRN Reason: Fever Or Pain Artificial Tears (Artificial Tears 15 Ml Drops) 1 drop EYE-BOTH BID [facility] Last Admin: 04/23/24 11:06 Dose: Not Given Documented By: KHANH Non-Admin Reason: Med Not Available Aspirin (Aspirin 81 Mg Tab.Chew) 81 mg PO DAILY [facility] Last Admin: 04/23/24 09:21 Dose: 81 mg Documented By: KHANH Atorvastatin Calcium (Atorvastatin Calcium 10 Mg Tablet) 10 mg PO BEDTIME@2000 [facility] Last Admin: 04/22/24 20:47 Dose: 10 mg Documented By: [facility] Bisacodyl (Bisacodyl 10 Mg Supp.Rect) 10 mg [place] DAILY PRN PRN Reason: Constipation Calcium Carbonate (Calcium Carbonate 750 Mg Tab.Chew) 750 mg PO Q4H PRN PRN Reason: Heartburn Cyanocobalamin (Cyanocobalamin (Vitamin B-12) 500 Mcg Tablet) 500 mcg PO DAILY@0800 [facility] Last Admin: 04/23/24 09:21 Dose: 500 mcg Documented By: KHANH Gabapentin (Gabapentin 300 Mg Capsule) 300 mg PO BID [facility] Last Admin: 04/23/24 09:21 Dose: 300 mg Documented By: KHANH Heparin Sodium (Porcine) (Heparin Sodium,Porcine 5,000 Unit/Ml Vial) 5,000 unit SUBCUT Q8H [facility] Last Admin: 04/23/24 09:20 Dose: 5,000 unit Documented By: KHANH Piperacillin Sod/Tazobactam (Sod 3.375 gm/ Sodium Chloride) 50 mls @ 100 mls/hr IV Q6H [facility] Last Infusion: 04/23/24 11:05 Dose: Infused Documented By: KHANH Ketorolac Tromethamine (Ketorolac Tromethamine 30 Mg/Ml Vial) 15 mg IVPUSH Q6H PRN PRN Reason: Pain, Moderate(Pain Scale 4-6) Stop: 04/26/24 16:45 Magnesium Hydroxide (Milk Of Magnesia 30 Ml Oral.Susp) 30 ml PO DAILY PRN PRN Reason: Constipation Magnesium Hydroxide (Milk Of Magnesia 30 Ml Oral.Susp) 30 ml PO DAILY PRN PRN Reason: Constipation Melatonin (Melatonin 3 Mg Tablet) 3 mg PO BEDTIME@1999 [facility] Last Admin: 04/22/24 20:47 Dose: 3 mg Documented By: [facility] Melatonin (Melatonin 3 Mg Tablet) 6 mg PO BEDTIME PRN PRN Reason: Insomnia Midodrine (Midodrine Hcl 5 Mg Tablet) 5 mg PO TID [facility] Last Admin: 04/23/24 09:21 Dose: 5 mg Documented By: KHANH Morphine Sulfate (Morphine Sulfate 4 Mg/Ml Cartridge) 2 mg IVPUSH Q4H PRN; Protocol PRN Reason: Pain, Severe (Pain Scale 7-10) Multivitamins/Vitamin C (Multivitamin Tablet) 1 tab PO DAILY [facility] Last Admin: 04/23/24 09:21 Dose: 1 tab Documented By: KHANH Non-Formulary Medication (Topiramate) 15 mg PO DAILY@1999 [facility] Nystatin (Nystatin Powder 15 Gm Bottle) 1 appl TOPICAL BID [facility]; Protocol Last Admin: 04/23/24 11:06 Dose: Not Given Documented By: KHANH Non-Admin Reason: Med Not Available Omeprazole (Omeprazole 20 Mg Capsule.) 20 mg PO DAILY@629 [facility] Last Admin: 04/23/24 05:42 Dose: 20 mg Documented By: EMEKA Ondansetron HCl (Ondansetron Hcl 4 Mg/2 Ml Vial) 4 mg IVPUSH Q8H PRN PRN Reason: Nausea and Vomiting Pharmacy Consult (Consult Rx Vancomycin Dosing) 1 each MISCELLANE DAILY PRN PRN Reason: Consult order Prednisone (Prednisone 5 Mg Tablet) 5 mg PO DAILY [facility] Last Admin: 04/23/24 09:21 Dose: 5 mg Documented By: KHANH Sertraline HCl (Sertraline Hcl 25 Mg Tablet) 25 mg PO DAILY@0800 [facility] Last Admin: 04/23/24 09:21 Dose: 25 mg Documented By: KHANH Sertraline HCl (Sertraline Hcl 100 Mg Tablet) 100 mg PO DAILY@0800 [facility] Last Admin: 04/23/24 09:21 Dose: 100 mg Documented By: KHANH Sodium Biphosphate/Sodium Phosphate (Sodium Phosphate,[place]-Dibasic 133 Ml Enema) 118 ml [place] DAILY PRN PRN Reason: Constipation Sodium Chloride (0.9 % Sodium Chloride Flush 3 Ml Syringe) 3 ml IVFLUSH QSHIFT [facility] Last Admin: 04/23/24 11:06 Dose: Not Given Documented By: KHANH Non-Admin Reason: Previously Administered Labs 04/22/24 04:51 04/22/24 04:51 Labs: Laboratory Results - last 24 hr 04/23/24 10:21 Random Vancomycin 24.0 H Microbiology Microbiology Results: Microbiology 04/21/24 Unknown Urine Culture - Preliminary Urine clean catch - Clean Catch Midstream Gram negative ta 04/21/24 12:11 Gram Stain - Final Buttock Right Routine Culture - Preliminary Proteus mirabilis 04/21/24 12:16 Blood Culture - Preliminary Blood - Venous No growth after 24 hours. 04/21/24 12:11 Blood Culture - Preliminary Blood - Venous No growth after 24 hours. Assessment and Plan (1) Abscess of right buttock: Status: Acute (2) Sepsis: Status: Acute Plan A 73 years old male with a PMH significant for?dementia, myasthenia gravis chronically on prednisone 5mg, COPD chronically on 2-3L NC, CAD, and HLD who presents to the ED from SNF with?right buttock abscess that has failed outpatient therapy. Sepsis 2/2 Right buttock cellulitis and abscess (due to Proteus) complicated with lactic acidosis abscess drained in the ED CT scan concerning for possible L4 fracture and infection ( it was reported before in 2022 MRI), ESR in the 80s -- will ask ID input Pending wound and blood cultures Start vanc and Zosyn, started 04/21/24 surg / ID input appreciated -- continue vancomcyin/zosyn now; possible PO pending final cultures monitor labs - ordered and pending Myasthenia gravis Continue home prednisone Presumed orthostatic hypotension Continue midodrine Mood disorder Continue home meds HLD Continue statin COPD / chronic hypoxic resp failure continue baseline meds and o2 chronic bean continue care urine growing GNR -- likely colonization DNR/DNI DVT Prophylaxis: Heparin Quality Stroke Does the patient have a stroke diagnosis?: No VTE Prior VTE?: No VTE Risk Level:: Medical - moderate - high VTE Device Contraindication: Treatment Not Indicated VTE Drug Contraindication: N/A - Med Ordered
[2024-04-23 12:12] LABS: Hematocrit 30.6 % (42.0-52.0); Mean Corpuscular HGB Conc 32.7 g/dl (31.0-36.0); Mean Corpuscular Hemoglobin 30.6 pg (27.0-33.0); Mean Corpuscular Volume 93.6 fL (80.0-98.0); Platelet Count 331 X10*3/uL (160-400); Red Blood Count 3.27 X10*6/uL (4.60-5.80); Red Cell Distribution Width 13.8 % (11.0-16.0); White Blood Count 8.8 X10*3/uL (4.8-10.8)
[2024-04-23 13:46] LABS: Anion Gap 9 (12-20); Blood Urea Nitrogen 9 mg/dL (9-16); Calcium 8.2 mg/dL (8.4-10.2); Carbon Dioxide 25 mmol/L (22-29); Chloride 110 mmol/L (96-108); Creatinine Clr Calc Pharmacy 142.2; Estimated Glomerular Filt Rate > 60; Glucose Random 107 mg/dL (60-115); Potassium 3.4 mmol/L (3.3-5.1); Sodium 141 mmol/L (135-145)
[2024-04-23 15:53] VITALS: BP 124/77; PULSE 64; RESP 23; TEMP 36.8; O2SAT 97
[2024-04-23] MEDS: vancomycin HCL 1,500 MG in 0.9 % Sodium Chloride 500 ML 333.33 MG IV (18:16)
[2024-04-23 20:00] VITALS: BP 96/64; PULSE 86; RESP 20; TEMP 36.6; O2SAT 97
[2024-04-23] MEDS: Melatonin 3 MG TABLET PO (20:10)
[2024-04-23] MEDS: Atorvastatin Calcium 10 MG TABLET PO (20:10)
[2024-04-23 23:57] VITALS: BP 134/81; PULSE 82; RESP 20; TEMP 36.3; O2SAT 92
[2024-04-24] VITALS (7 sets, daily range): BP systolic 103–131; BP diastolic 61–75; PULSE 77–98; RESP 16–20; TEMP 36.4–36.7; O2SAT 90–96
[2024-04-24] MEDS: Piperacillin Sodium/Tazobactam 3.375 GM in 0.9 % Sodium Chloride 50 ML IV ×4 (01:24→20:47)
[2024-04-24] MEDS: Heparin Sodium,Porcine 5,000 UNIT/ML VIAL 5000 UNIT SUBCUT ×3 (01:25→17:15)
[2024-04-24] MEDS: Omeprazole 20 MG CAPSULE.DR PO (06:30)
[2024-04-24 07:54] LABS: Creatinine Clr Calc Pharmacy 83.1; Estimated Glomerular Filt Rate > 60
[2024-04-24] MEDS: predniSONE 5 MG TABLET PO (08:42)
[2024-04-24] MEDS: Sertraline HCL 100 MG TABLET PO (08:42)
[2024-04-24] MEDS: Sertraline HCL 25 MG TABLET PO (08:42)
[2024-04-24] MEDS: Aspirin 81 MG TAB.CHEW PO (08:42)
[2024-04-24] MEDS: Gabapentin 300 MG CAPSULE PO ×2 (08:42→20:46)
[2024-04-24] MEDS: Cyanocobalamin (Vitamin B-12) 500 MCG TABLET PO (08:42)
[2024-04-24] MEDS: Multivitamin TABLET 1 TAB PO (08:42)
[2024-04-24] MEDS: Midodrine HCl 5 MG TABLET PO ×3 (08:42→21:40)
[2024-04-24] MEDS: 0.9 % Sodium Chloride Flush 3 ML SYRINGE IVFLUSH ×3 (08:43→20:49)
--- NOTE | 2024-04-24 11:06 | HO.PM.IMPN ---
Subjective Subjective Date of Service: 04/24/24 Interval History: seen and examined remains pleasantly confused denies pain Review of Systems Negative except HPI/interval history. Physical Exam Vital Signs: Vital Signs: Last Vital Signs Temp 98.0 F 04/24/24 07:19 Pulse 77 04/24/24 07:19 Resp 20 04/24/24 07:19 BP 103/65 04/24/24 08:42 Pulse Ox 96 04/24/24 07:19 O2 Del Method Nasal Cannula 04/24/24 07:19 O2 Flow Rate 3 04/24/24 07:19 BMI result Body Mass Index 22.5 Const: Other: General - no acute distress, appears comfortable Cardiovascular - regular rate and rhythm, S1-S2 Lungs - normal respiratory effort, clear to auscultation bilaterally, no wheezing Abdomen - soft, nontender, no rebound or guarding Extremities - no edema bilaterally Skin - L buttock dressing place ; wound with improving surrounding erythema; packing in place Neuro - awake and alert, no focal deficits Objective Data Active Medications Acetaminophen (Acetaminophen 325 Mg Tablet) 650 mg PO Q4H PRN PRN Reason: Fever Or Pain Artificial Tears (Artificial Tears 15 Ml Drops) 1 drop EYE-BOTH BID [facility] Last Admin: 04/24/24 08:55 Dose: Not Given Documented By: NEAL Non-Admin Reason: Patient Refused Aspirin (Aspirin 81 Mg Tab.Chew) 81 mg PO DAILY [facility] Last Admin: 04/24/24 08:42 Dose: 81 mg Documented By: NEAL Atorvastatin Calcium (Atorvastatin Calcium 10 Mg Tablet) 10 mg PO BEDTIME@2000 [facility] Last Admin: 04/23/24 20:10 Dose: 10 mg Documented By: SOILA Bisacodyl (Bisacodyl 10 Mg Supp.Rect) 10 mg [place] DAILY PRN PRN Reason: Constipation Calcium Carbonate (Calcium Carbonate 750 Mg Tab.Chew) 750 mg PO Q4H PRN PRN Reason: Heartburn Cyanocobalamin (Cyanocobalamin (Vitamin B-12) 500 Mcg Tablet) 500 mcg PO DAILY@0800 [facility] Last Admin: 04/24/24 08:42 Dose: 500 mcg Documented By: NEAL Gabapentin (Gabapentin 300 Mg Capsule) 300 mg PO BID [facility] Last Admin: 04/24/24 08:42 Dose: 300 mg Documented By: NEAL Heparin Sodium (Porcine) (Heparin Sodium,Porcine 5,000 Unit/Ml Vial) 5,000 unit SUBCUT Q8H [facility] Last Admin: 04/24/24 08:42 Dose: 5,000 unit Documented By: NEAL Vancomycin HCl 1,500 mg/ (Sodium Chloride) 500 mls @ 333.333 mls/hr IV Q24H [facility] Last Infusion: 04/23/24 19:47 Dose: Infused Documented By: SOILA Piperacillin Sod/Tazobactam (Sod 3.375 gm/ Sodium Chloride) 50 mls @ 100 mls/hr IV Q6H [facility] Last Infusion: 04/24/24 09:24 Dose: Infused Documented By: NEAL Ketorolac Tromethamine (Ketorolac Tromethamine 30 Mg/Ml Vial) 15 mg IVPUSH Q6H PRN PRN Reason: Pain, Moderate(Pain Scale 4-6) Stop: 04/26/24 16:45 Magnesium Hydroxide (Milk Of Magnesia 30 Ml Oral.Susp) 30 ml PO DAILY PRN PRN Reason: Constipation Magnesium Hydroxide (Milk Of Magnesia 30 Ml Oral.Susp) 30 ml PO DAILY PRN PRN Reason: Constipation Melatonin (Melatonin 3 Mg Tablet) 3 mg PO BEDTIME@1999 [facility] Last Admin: 04/23/24 20:10 Dose: 3 mg Documented By: SOILA Melatonin (Melatonin 3 Mg Tablet) 6 mg PO BEDTIME PRN PRN Reason: Insomnia Midodrine (Midodrine Hcl 5 Mg Tablet) 5 mg PO TID [facility] Last Admin: 04/24/24 08:42 Dose: 5 mg Documented By: NEAL Morphine Sulfate (Morphine Sulfate 4 Mg/Ml Cartridge) 2 mg IVPUSH Q4H PRN; Protocol PRN Reason: Pain, Severe (Pain Scale 7-10) Multivitamins/Vitamin C (Multivitamin Tablet) 1 tab PO DAILY [facility] Last Admin: 04/24/24 08:42 Dose: 1 tab Documented By: NEAL Non-Formulary Medication (Topiramate) 15 mg PO DAILY@1999 [facility] Nystatin (Nystatin Powder 15 Gm Bottle) 1 appl TOPICAL BID [facility]; Protocol Last Admin: 04/24/24 08:56 Dose: Not Given Documented By: NEAL Non-Admin Reason: waiting for medication Omeprazole (Omeprazole 20 Mg Capsule.) 20 mg PO DAILY@0630 [facility] Last Admin: 04/24/24 06:30 Dose: 20 mg Documented By: SOILA Ondansetron HCl (Ondansetron Hcl 4 Mg/2 Ml Vial) 4 mg IVPUSH Q8H PRN PRN Reason: Nausea and Vomiting Pharmacy Consult (Consult Rx Vancomycin Dosing) 1 each MISCELLANE DAILY PRN PRN Reason: Consult order Prednisone (Prednisone 5 Mg Tablet) 5 mg PO DAILY [facility] Last Admin: 04/24/24 08:42 Dose: 5 mg Documented By: NEAL Sertraline HCl (Sertraline Hcl 25 Mg Tablet) 25 mg PO DAILY@0800 [facility] Last Admin: 04/24/24 08:42 Dose: 25 mg Documented By: NEAL Sertraline HCl (Sertraline Hcl 100 Mg Tablet) 100 mg PO DAILY@0800 [facility] Last Admin: 04/24/24 08:42 Dose: 100 mg Documented By: NEAL Sodium Biphosphate/Sodium Phosphate (Sodium Phosphate,[place]-Dibasic 133 Ml Enema) 118 ml [place] DAILY PRN PRN Reason: Constipation Sodium Chloride (0.9 % Sodium Chloride Flush 3 Ml Syringe) 3 ml IVFLUSH QSHIFT [facility] Last Admin: 04/24/24 08:43 Dose: 3 ml Documented By: NEAL Labs 04/23/24 12:06 04/24/24 06:52 Labs: Laboratory Results - last 24 hr 04/23/24 04/24/24 12:06 06:52 MCV 93.6 MCH 30.6 MCHC 32.7 RDW 13.8 Plt Count 331 MPV 10.0 Absolute Nucleated RBC 0.000 Nucleated RBC % (auto) 0.0 Hold Purple Top SEE NOTE Anion Gap 9 L Estim Creat Clear Calc 142.2 83.1 Estimated GFR > 60 > 60 Random Glucose 107 Calcium 8.2 L Microbiology Microbiology Results: Microbiology 04/21/24 12:11 Gram Stain - Final Buttock Right Routine Culture - Preliminary Proteus mirabilis Enterococcus/Streptococcus sp 04/21/24 Unknown Urine Culture - Final Urine clean catch - Clean Catch Midstream Klebsiella pneumoniae Pseudomonas aeruginosa 04/21/24 12:16 Blood Culture - Preliminary Blood - Venous No growth after 48 hours. 04/21/24 12:11 Blood Culture - Preliminary Blood - Venous No growth after 48 hours. Assessment and Plan (1) Abscess of right buttock: Status: Acute (2) Sepsis: Status: Acute Plan A 73 years old male with a PMH significant for?dementia, myasthenia gravis chronically on prednisone 5mg, COPD chronically on 2-3L NC, CAD, and HLD who presents to the ED from SNF with?right buttock abscess that has failed outpatient therapy. Sepsis 2/2 Right buttock cellulitis and abscess (due to Proteus) complicated with lactic acidosis abscess drained in the ED CT scan concerning for possible L4 fracture and infection ( it was reported before in 2022 MRI), ESR in the 80s - ID input appreciated; MRI not needed, unlikley to change mgmt blood cx negative continue vancomyin/zosyn for -- suspect likely able to transtion to PO (have reached out to ID) gen surg follow up re: wound chronic bean continue care urine growing klebsiella and psueudomonas -- will d/w ID if these need to be treated Myasthenia gravis Continue home prednisone Presumed orthostatic hypotension Continue midodrine Mood disorder Continue home meds HLD Continue statin COPD / chronic hypoxic resp failure continue baseline meds and o2 DNR/DNI DVT Prophylaxis: Heparin dispo: back to LTC once improved -- anticipate next 24 or so hours Quality Stroke Does the patient have a stroke diagnosis?: No VTE Prior VTE?: No VTE Risk Level:: Medical - moderate - high VTE Device Contraindication: Treatment Not Indicated VTE Drug Contraindication: N/A - Med Ordered
--- NOTE | 2024-04-24 12:47 | PM.PNGS ---
Subjective Subjective Date of Service: 04/24/24 Interval history: No new events reported Physical Exam Vital Signs: Vital Signs: Last Vital Signs Temp 98.0 F 04/24/24 07:19 Pulse 77 04/24/24 07:19 Resp 20 04/24/24 07:19 BP 103/65 04/24/24 08:42 Pulse Ox 96 04/24/24 07:19 O2 Del Method Nasal Cannula 04/24/24 07:19 O2 Flow Rate 3 04/24/24 07:19 BMI result Body Mass Index 22.5 Const: Other: Not very communicative General: comfortable and no acute distress Resp: Effort & Inspection: normal respiratory effort Back/Spine/Pelvis: Other: Right buttock with much less induration, less drainage, packing in place, note of open wound, no cellulitis Objective Data Active Medications Acetaminophen (Acetaminophen 325 Mg Tablet) 650 mg PO Q4H PRN PRN Reason: Fever Or Pain Artificial Tears (Artificial Tears 15 Ml Drops) 1 drop EYE-BOTH BID [facility] Last Admin: 04/24/24 08:55 Dose: Not Given Documented By: NEAL Non-Admin Reason: Patient Refused Aspirin (Aspirin 81 Mg Tab.Chew) 81 mg PO DAILY [facility] Last Admin: 04/24/24 08:42 Dose: 81 mg Documented By: NEAL Atorvastatin Calcium (Atorvastatin Calcium 10 Mg Tablet) 10 mg PO BEDTIME@2000 [facility] Last Admin: 04/23/24 20:10 Dose: 10 mg Documented By: SOILA Bisacodyl (Bisacodyl 10 Mg Supp.Rect) 10 mg [place] DAILY PRN PRN Reason: Constipation Calcium Carbonate (Calcium Carbonate 750 Mg Tab.Chew) 750 mg PO Q4H PRN PRN Reason: Heartburn Cyanocobalamin (Cyanocobalamin (Vitamin B-12) 500 Mcg Tablet) 500 mcg PO DAILY@0800 [facility] Last Admin: 04/24/24 08:42 Dose: 500 mcg Documented By: NEAL Gabapentin (Gabapentin 300 Mg Capsule) 300 mg PO BID [facility] Last Admin: 04/24/24 08:42 Dose: 300 mg Documented By: NEAL Heparin Sodium (Porcine) (Heparin Sodium,Porcine 5,000 Unit/Ml Vial) 5,000 unit SUBCUT Q8H [facility] Last Admin: 04/24/24 08:42 Dose: 5,000 unit Documented By: NEAL Vancomycin HCl 1,500 mg/ (Sodium Chloride) 500 mls @ 333.333 mls/hr IV Q24H [facility] Last Infusion: 04/23/24 19:47 Dose: Infused Documented By: SOILA Piperacillin Sod/Tazobactam (Sod 3.375 gm/ Sodium Chloride) 50 mls @ 100 mls/hr IV Q6H [facility] Last Infusion: 04/24/24 09:24 Dose: Infused Documented By: NEAL Ketorolac Tromethamine (Ketorolac Tromethamine 30 Mg/Ml Vial) 15 mg IVPUSH Q6H PRN PRN Reason: Pain, Moderate(Pain Scale 4-6) Stop: 04/26/24 16:45 Magnesium Hydroxide (Milk Of Magnesia 30 Ml Oral.Susp) 30 ml PO DAILY PRN PRN Reason: Constipation Magnesium Hydroxide (Milk Of Magnesia 30 Ml Oral.Susp) 30 ml PO DAILY PRN PRN Reason: Constipation Melatonin (Melatonin 3 Mg Tablet) 3 mg PO BEDTIME@1999 [facility] Last Admin: 04/23/24 20:10 Dose: 3 mg Documented By: SOILA Melatonin (Melatonin 3 Mg Tablet) 6 mg PO BEDTIME PRN PRN Reason: Insomnia Midodrine (Midodrine Hcl 5 Mg Tablet) 5 mg PO TID [facility] Last Admin: 04/24/24 08:42 Dose: 5 mg Documented By: NEAL Morphine Sulfate (Morphine Sulfate 4 Mg/Ml Cartridge) 2 mg IVPUSH Q4H PRN; Protocol PRN Reason: Pain, Severe (Pain Scale 7-10) Multivitamins/Vitamin C (Multivitamin Tablet) 1 tab PO DAILY [facility] Last Admin: 04/24/24 08:42 Dose: 1 tab Documented By: NEAL Non-Formulary Medication (Topiramate) 15 mg PO DAILY@1999 [facility] Nystatin (Nystatin Powder 15 Gm Bottle) 1 appl TOPICAL BID [facility]; Protocol Last Admin: 04/24/24 08:56 Dose: Not Given Documented By: NEAL Non-Admin Reason: waiting for medication Omeprazole (Omeprazole 20 Mg Capsule.) 20 mg PO DAILY@0630 [facility] Last Admin: 04/24/24 06:30 Dose: 20 mg Documented By: SOILA Ondansetron HCl (Ondansetron Hcl 4 Mg/2 Ml Vial) 4 mg IVPUSH Q8H PRN PRN Reason: Nausea and Vomiting Pharmacy Consult (Consult Rx Vancomycin Dosing) 1 each MISCELLANE DAILY PRN PRN Reason: Consult order Prednisone (Prednisone 5 Mg Tablet) 5 mg PO DAILY [facility] Last Admin: 04/24/24 08:42 Dose: 5 mg Documented By: NEAL Sertraline HCl (Sertraline Hcl 25 Mg Tablet) 25 mg PO DAILY@0800 [facility] Last Admin: 04/24/24 08:42 Dose: 25 mg Documented By: NEAL Sertraline HCl (Sertraline Hcl 100 Mg Tablet) 100 mg PO DAILY@0800 [facility] Last Admin: 04/24/24 08:42 Dose: 100 mg Documented By: NEAL Sodium Biphosphate/Sodium Phosphate (Sodium Phosphate,[place]-Dibasic 133 Ml Enema) 118 ml [place] DAILY PRN PRN Reason: Constipation Sodium Chloride (0.9 % Sodium Chloride Flush 3 Ml Syringe) 3 ml IVFLUSH QSHIFT [facility] Last Admin: 04/24/24 08:43 Dose: 3 ml Documented By: NEAL Labs 04/23/24 12:06 04/24/24 06:52 Labs: Laboratory Results - last 24 hr 04/23/24 04/24/24 12:06 06:52 Hold Purple Top SEE NOTE Anion Gap 9 L Estim Creat Clear Calc 142.2 83.1 Estimated GFR > 60 > 60 Random Glucose 107 Calcium 8.2 L Microbiology Microbiology Results: Microbiology 04/21/24 12:11 Gram Stain - Final Buttock Right Routine Culture - Preliminary Proteus mirabilis Enterococcus/Streptococcus sp 04/21/24 Unknown Urine Culture - Final Urine clean catch - Clean Catch Midstream Klebsiella pneumoniae Pseudomonas aeruginosa 04/21/24 12:16 Blood Culture - Preliminary Blood - Venous No growth after 48 hours. 04/21/24 12:11 Blood Culture - Preliminary Blood - Venous No growth after 48 hours. Procedures Date of Service Date of Service: 04/24/24 Progress Note: A&P Assessment and plan (1) Abscess of right buttock: Status: Acute Assessment and Plan: Spontaneously draining Packing removed Induration much improved Dry dressings daily with gauze Antibiotics based on cultures Rest of management as per hospitalist service Time Spent With Patient Time: Total time managing care of this patient today ____ minutes. Quality Stroke Does the patient have a stroke diagnosis?: No VTE Prior VTE?: No VTE Risk Level:: Medical - moderate - high VTE Device Contraindication: Treatment Not Indicated VTE Drug Contraindication: N/A - Med Ordered
--- NOTE | 2024-04-24 14:31 | MHC.CM.PN ---
PER MD, PT IS EXPECTED TO BE READY TO DC TOMORROW ON PO ABX DCP: RETURN TO [facility] VIA BLS
[2024-04-24 16:34] LABS: Vancomycin Random 27.3 mcg/mL (15-20)
[2024-04-24] MEDS: Lactated Ringers 1,000 ML 100 ML IVCONT (17:15)
[2024-04-24] MEDS: Atorvastatin Calcium 10 MG TABLET PO (20:46)
[2024-04-24] MEDS: Melatonin 3 MG TABLET PO (20:46)
--- NOTE | 2024-04-24 23:15 | P.PNID_ITS ---
Subjective Subjective Date of Service: 04/24/24 Critical Care Time (minutes): 15 Comment: patient no complaints Objective Data Labs 04/23/24 12:06 04/24/24 06:52 Labs: Laboratory Results - last 24 hr 04/24/24 04/24/24 06:52 15:21 Hold Purple Top SEE NOTE Creatinine 0.89 Estim Creat Clear Calc 83.1 Estimated GFR > 60 Random Vancomycin 27.3 H* Microbiology Microbiology Results: Microbiology 04/21/24 12:11 Buttock Right Gram Stain - Final 04/21/24 12:11 Buttock Right Routine Culture - Preliminary Proteus mirabilis Enterococcus/Streptococcus sp 04/21/24 Unknown Urine clean catch - Clean Catch Midstream Urine Culture - Final Klebsiella pneumoniae Pseudomonas aeruginosa 04/21/24 12:16 Blood - Venous Blood Culture - Preliminary No growth after 48 hours. 04/21/24 12:11 Blood - Venous Blood Culture - Preliminary No growth after 48 hours. Physical Exam 2 Vital Signs: Vital Signs: Last Vital Signs Temp 97.8 F 04/24/24 15:42 Pulse 77 04/24/24 15:42 Resp 16 04/24/24 15:42 BP 104/64 04/24/24 21:48 Pulse Ox 95 04/24/24 15:42 O2 Del Method Nasal Cannula 04/24/24 15:42 O2 Flow Rate 3 04/24/24 07:19 BMI result Body Mass Index 22.5 Const: General: cooperative HEENT: Head: Yes normal to inspection Face and sinus: Yes normal facial exam Mouth: Normal oral and palatal mucosa present Teeth and gingiva: d entition normal Eyes: General: appearance normal, both eyes and all related structures P upils: Equal, round and reactive pupils present Resp: Effort & Inspection: normal respiratory effort Cardio: Rate: regular rate Rhythm: regular rhythm GI: Palpation (GI): Soft to palpation and nontender : General: Yes no CVA tenderness Back/Spine/Pelvis: Back: no CVA tenderness Skin: General skin exam: no rashes or lesions noted Neuro: General: moves all extremities Cranial nerves: Yes Equal, round and reactive pupils present Extrem: General: Yes normal to inspection Psych: Appearance: grossly normal Assessment and Plan Assessment and plan (1) Abscess of right buttock: Problem details: Still may have contaminant or may be real Status: Acute Assessment and Plan: po Doxycycline two weeks cover abscess/proteus No need to cover urine,colonized ,[place] Time Spent With Patient Time: Total time managing care of this patient today ____ minutes.
[2024-04-25] MEDS: Heparin Sodium,Porcine 5,000 UNIT/ML VIAL 5000 UNIT SUBCUT ×3 (02:35→17:04)
[2024-04-25] MEDS: Piperacillin Sodium/Tazobactam 3.375 GM in 0.9 % Sodium Chloride 50 ML IV (02:36)
[2024-04-25] MEDS: Lactated Ringers 1,000 ML 100 ML IVCONT (03:10)
[2024-04-25] MEDS: Omeprazole 20 MG CAPSULE.DR PO (05:52)
[2024-04-25 07:13] VITALS: BP 117/72; PULSE 69; RESP 18; TEMP 36.5; O2SAT 97
[2024-04-25 07:15] LABS: Creatinine Clr Calc Pharmacy 42.5; Estimated Glomerular Filt Rate 39
[2024-04-25] MEDS: Sertraline HCL 100 MG TABLET PO (08:49)
[2024-04-25] MEDS: Cyanocobalamin (Vitamin B-12) 500 MCG TABLET PO (08:49)
[2024-04-25] MEDS: Sertraline HCL 25 MG TABLET PO (08:49)
[2024-04-25] MEDS: predniSONE 5 MG TABLET PO (08:49)
[2024-04-25] MEDS: 0.9 % Sodium Chloride Flush 3 ML SYRINGE IVFLUSH ×3 (08:50→20:38)
[2024-04-25] MEDS: Aspirin 81 MG TAB.CHEW PO (08:50)
[2024-04-25] MEDS: Gabapentin 300 MG CAPSULE PO ×2 (08:50→20:38)
[2024-04-25] MEDS: Midodrine HCl 5 MG TABLET PO ×3 (08:50→20:37)
[2024-04-25] MEDS: Multivitamin TABLET 1 TAB PO (08:50)
--- NOTE | 2024-04-25 10:49 | HO.PM.IMPN ---
Subjective Subjective Date of Service: 04/25/24 Interval History: seen and examined feeling tired today noted ÓSCAR Review of Systems Negative except HPI/interval history. Physical Exam Vital Signs: Vital Signs: Last Vital Signs Temp 97.7 F 04/25/24 07:13 Pulse 69 04/25/24 07:13 Resp 18 04/25/24 07:13 BP 117/72 04/25/24 07:13 Pulse Ox 97 04/25/24 07:13 O2 Del Method Nasal Cannula 04/25/24 07:13 O2 Flow Rate 3 04/25/24 07:13 BMI result Body Mass Index 22.5 Const: Other: General - no acute distress, appears comfortable Cardiovascular - regular rate and rhythm, S1-S2 Lungs - normal respiratory effort, clear to auscultation bilaterally, no wheezing Abdomen - soft, nontender, no rebound or guarding Extremities - no edema bilaterally Skin - dressing in place, L buttock Neuro - awake and alert, no focal deficits Objective Data Active Medications Acetaminophen (Acetaminophen 325 Mg Tablet) 650 mg PO Q4H PRN PRN Reason: Fever Or Pain Artificial Tears (Artificial Tears 15 Ml Drops) 1 drop EYE-BOTH BID [facility] Last Admin: 04/25/24 09:30 Dose: Not Given Documented By: BONILLA Non-Admin Reason: Patient Refused Aspirin (Aspirin 81 Mg Tab.Chew) 81 mg PO DAILY [facility] Last Admin: 04/25/24 08:50 Dose: 81 mg Documented By: BONILLA Atorvastatin Calcium (Atorvastatin Calcium 10 Mg Tablet) 10 mg PO BEDTIME@2000 [facility] Last Admin: 04/24/24 20:46 Dose: 10 mg Documented By: ALEJANDRA Bisacodyl (Bisacodyl 10 Mg Supp.Rect) 10 mg [place] DAILY PRN PRN Reason: Constipation Calcium Carbonate (Calcium Carbonate 750 Mg Tab.Chew) 750 mg PO Q4H PRN PRN Reason: Heartburn Cyanocobalamin (Cyanocobalamin (Vitamin B-12) 500 Mcg Tablet) 500 mcg PO DAILY@0800 [facility] Last Admin: 04/25/24 08:49 Dose: 500 mcg Documented By: BONILLA Gabapentin (Gabapentin 300 Mg Capsule) 300 mg PO BID [facility] Last Admin: 04/25/24 08:50 Dose: 300 mg Documented By: BONILLA Heparin Sodium (Porcine) (Heparin Sodium,Porcine 5,000 Unit/Ml Vial) 5,000 unit SUBCUT Q8H [facility] Last Admin: 04/25/24 08:49 Dose: 5,000 unit Documented By: BONILLA Lactated Ringer's (Lr) 1,000 mls @ 100 mls/hr IVCONT .Q10H [facility] Stop: 04/25/24 12:44 Last Admin: 04/25/24 03:10 Dose: 100 mls/hr Documented By: ALEJANDRA Magnesium Hydroxide (Milk Of Magnesia 30 Ml Oral.Susp) 30 ml PO DAILY PRN PRN Reason: Constipation Magnesium Hydroxide (Milk Of Magnesia 30 Ml Oral.Susp) 30 ml PO DAILY PRN PRN Reason: Constipation Melatonin (Melatonin 3 Mg Tablet) 3 mg PO BEDTIME@1999 [facility] Last Admin: 04/24/24 20:46 Dose: 3 mg Documented By: ALEJANDRA Melatonin (Melatonin 3 Mg Tablet) 6 mg PO BEDTIME PRN PRN Reason: Insomnia Midodrine (Midodrine Hcl 5 Mg Tablet) 5 mg PO TID [facility] Last Admin: 04/25/24 08:50 Dose: 5 mg Documented By: BONILLA Morphine Sulfate (Morphine Sulfate 4 Mg/Ml Cartridge) 2 mg IVPUSH Q4H PRN; Protocol PRN Reason: Pain, Severe (Pain Scale 7-10) Multivitamins/Vitamin C (Multivitamin Tablet) 1 tab PO DAILY [facility] Last Admin: 04/25/24 08:50 Dose: 1 tab Documented By: BONILLA Non-Formulary Medication (Topiramate) 15 mg PO DAILY@1999 [facility] Nystatin (Nystatin Powder 15 Gm Bottle) 1 appl TOPICAL BID [facility]; Protocol Last Admin: 04/25/24 09:30 Dose: Not Given Documented By: BONILLA Non-Admin Reason: Med Not Available Omeprazole (Omeprazole 20 Mg Capsule.) 20 mg PO DAILY@06 [facility] Last Admin: 04/25/24 05:52 Dose: 20 mg Documented By: ALEJANDRA Ondansetron HCl (Ondansetron Hcl 4 Mg/2 Ml Vial) 4 mg IVPUSH Q8H PRN PRN Reason: Nausea and Vomiting Prednisone (Prednisone 5 Mg Tablet) 5 mg PO DAILY [facility] Last Admin: 04/25/24 08:49 Dose: 5 mg Documented By: BONILLA Sertraline HCl (Sertraline Hcl 25 Mg Tablet) 25 mg PO DAILY@0800 [facility] Last Admin: 04/25/24 08:49 Dose: 25 mg Documented By: BONILLA Sertraline HCl (Sertraline Hcl 100 Mg Tablet) 100 mg PO DAILY@0800 [facility] Last Admin: 04/25/24 08:49 Dose: 100 mg Documented By: BONILLA Sodium Biphosphate/Sodium Phosphate (Sodium Phosphate,[place]-Dibasic 133 Ml Enema) 118 ml [place] DAILY PRN PRN Reason: Constipation Sodium Chloride (0.9 % Sodium Chloride Flush 3 Ml Syringe) 3 ml IVFLUSH QSHIFT [facility] Last Admin: 04/25/24 08:50 Dose: 3 ml Documented By: BONILLA Labs 04/23/24 12:06 04/25/24 06:19 Labs: Laboratory Results - last 24 hr 04/24/24 04/25/24 15:21 06:19 Hold Purple Top SEE NOTE Estim Creat Clear Calc 42.5 Estimated GFR 39 Random Vancomycin 27.3 H* Microbiology Microbiology Results: Microbiology 04/21/24 12:11 Gram Stain - Final Buttock Right Routine Culture - Final Proteus mirabilis Enterococcus faecalis 04/21/24 Unknown Urine Culture - Final Urine clean catch - Clean Catch Midstream Klebsiella pneumoniae Pseudomonas aeruginosa Assessment and Plan (1) Abscess of right buttock: Status: Acute (2) Sepsis: Status: Acute Plan A 73 years old male with a PMH significant for?dementia, myasthenia gravis chronically on prednisone 5mg, COPD chronically on 2-3L NC, CAD, and HLD who presents to the ED from SNF with?right buttock abscess that has failed outpatient therapy. ÓSCAR suspected due to vancomcyin tox IVF nephro consult Sepsis 2/ Right buttock cellulitis and abscess (due to Proteus) complicated with lactic acidosis abscess drained in the ED CT scan concerning for possible L4 fracture and infection ( it was reported before in 2022 MRI), ESR in the 80s - ID input appreciated; MRI not needed, unlikley to change mgmt blood cx negative Gen surg appreciated - packing removed 04/25; dressing changes daily ID follow up noted -- PO doxy x 2 weeks; started 04/25 chronic bean continue care urine growing klebsiella and psueudomonas -- likely colonized, does not need to be treated Myasthenia gravis Continue home prednisone Presumed orthostatic hypotension Continue midodrine Mood disorder Continue home meds HLD Continue statin COPD / chronic hypoxic resp failure continue baseline meds and o2 DNR/DNI DVT Prophylaxis: Heparin dispo: LTC once renal function improves/stabilizes Quality Stroke Does the patient have a stroke diagnosis?: No VTE Prior VTE?: No VTE Risk Level:: Medical - moderate - high VTE Device Contraindication: Treatment Not Indicated VTE Drug Contraindication: N/A - Med Ordered
[2024-04-25] MEDS: Doxycycline Monohydrate 100 MG CAPSULE PO (12:00)
[2024-04-25 15:22] VITALS: BP 106/60; PULSE 68; RESP 16; TEMP 36.4; O2SAT 97
[2024-04-25 15:52] VITALS: BP 106/60
[2024-04-25] MEDS: Potassium Chloride Packet 20 MEQ PACKET 40 MEQ PO (15:52)
[2024-04-25 20:37] VITALS: BP 112/66
[2024-04-25] MEDS: Nystatin Powder 15 GM BOTTLE 1 APPL TOPICAL (20:37)
[2024-04-25] MEDS: Artificial Tears 15 ML DROPS 1 DROP EYE-BOTH (20:37)
[2024-04-25] MEDS: Melatonin 3 MG TABLET PO (20:37)
[2024-04-25] MEDS: Atorvastatin Calcium 10 MG TABLET PO (20:38)
[2024-04-25 20:57] VITALS: BP 112/66; PULSE 80; RESP 18; TEMP 36.4; O2SAT 98
[2024-04-26] VITALS: BP 121/71; PULSE 64; RESP 18; TEMP 36.3; O2SAT 98
[2024-04-26] MEDS: Doxycycline Monohydrate 100 MG CAPSULE PO ×3 (00:13→22:36)
[2024-04-26] MEDS: Heparin Sodium,Porcine 5,000 UNIT/ML VIAL 5000 UNIT SUBCUT ×3 (00:13→16:48)
[2024-04-26] MEDS: Omeprazole 20 MG CAPSULE.DR PO (06:30)
[2024-04-26 06:36] LABS: Hematocrit 28.3 % (42.0-52.0); Hemoglobin 9.2 g/dl (14.0-18.0); Mean Corpuscular HGB Conc 32.5 g/dl (31.0-36.0); Mean Corpuscular Hemoglobin 30.6 pg (27.0-33.0); Mean Platelet Volume 9.8 fL (9.4-12.4); Platelet Count 326 X10*3/uL (160-400); Red Blood Count 3.01 X10*6/uL (4.60-5.80); Red Cell Distribution Width 13.9 % (11.0-16.0); White Blood Count 8.2 X10*3/uL (4.8-10.8)
[2024-04-26 06:54] LABS: Anion Gap 10 (12-20); Blood Urea Nitrogen 17 mg/dL (9-16); Calcium 8.2 mg/dL (8.4-10.2); Carbon Dioxide 27 mmol/L (22-29); Chloride 110 mmol/L (96-108); Creatinine Clr Calc Pharmacy 40.8; Estimated Glomerular Filt Rate 37; Glucose Random 92 mg/dL (60-115); Potassium 3.2 mmol/L (3.3-5.1); Sodium 144 mmol/L (135-145)
[2024-04-26 07:33] VITALS: BP 112/67; PULSE 69; RESP 16; TEMP 36.2; O2SAT 98
[2024-04-26] MEDS: predniSONE 5 MG TABLET PO (08:07)
[2024-04-26] MEDS: Gabapentin 300 MG CAPSULE PO ×2 (08:07→20:12)
[2024-04-26] MEDS: Cyanocobalamin (Vitamin B-12) 500 MCG TABLET PO (08:07)
[2024-04-26] MEDS: Sertraline HCL 100 MG TABLET PO (08:07)
[2024-04-26] MEDS: Aspirin 81 MG TAB.CHEW PO (08:07)
[2024-04-26] MEDS: Sertraline HCL 25 MG TABLET PO (08:07)
[2024-04-26] MEDS: Multivitamin TABLET 1 TAB PO (08:07)
[2024-04-26] MEDS: Midodrine HCl 5 MG TABLET PO ×2 (08:07→14:52)
[2024-04-26] MEDS: 0.9 % Sodium Chloride Flush 3 ML SYRINGE IVFLUSH ×3 (08:17→20:19)
[2024-04-26] MEDS: Nystatin Powder 15 GM BOTTLE 1 APPL TOPICAL ×2 (10:35→20:18)
--- NOTE | 2024-04-26 10:50 | P.PNIM_ITS ---
Subjective Subjective Date of Service: 04/26/24 Interval History: seen and examined feeling tired today noted ÓSCAR Review of Systems Negative except HPI/interval history. Physical Exam 2 Vital Signs: Vital Signs: Last Vital Signs Temp 97.2 F 04/26/24 07:33 Pulse 69 04/26/24 07:33 Resp 16 04/26/24 07:33 BP 112/67 04/26/24 07:33 Pulse Ox 98 04/26/24 07:33 O2 Del Method Nasal Cannula 04/26/24 07:33 O2 Flow Rate 3 04/26/24 07:33 BMI result Body Mass Index 22.5 Const: Other: General - no acute distress, appears comfortable Cardiovascular - regular rate and rhythm, S1-S2 Lungs - normal respiratory effort, clear to auscultation bilaterally, no wheezing Abdomen - soft, nontender, no rebound or guarding Extremities - no edema bilaterally Skin - dressing in place, L buttock Neuro - awake and alert, no focal deficits Objective Data Active Medications Acetaminophen (Acetaminophen 325 Mg Tablet) 650 mg PO Q4H PRN PRN Reason: Fever Or Pain Artificial Tears (Artificial Tears 15 Ml Drops) 1 drop EYE-BOTH BID [facility] Last Admin: 04/26/24 10:34 Dose: Not Given Documented By: BONILLA Non-Admin Reason: Patient Refused Aspirin (Aspirin 81 Mg Tab.Chew) 81 mg PO DAILY [facility] Last Admin: 04/26/24 08:07 Dose: 81 mg Documented By: BONILLA Atorvastatin Calcium (Atorvastatin Calcium 10 Mg Tablet) 10 mg PO BEDTIME@2000 [facility] Last Admin: 04/25/24 20:38 Dose: 10 mg Documented By: ALEJANDRA Bisacodyl (Bisacodyl 10 Mg Supp.Rect) 10 mg [place] DAILY PRN PRN Reason: Constipation Calcium Carbonate (Calcium Carbonate 750 Mg Tab.Chew) 750 mg PO Q4H PRN PRN Reason: Heartburn Cyanocobalamin (Cyanocobalamin (Vitamin B-12) 500 Mcg Tablet) 500 mcg PO DAILY@0800 [facility] Last Admin: 04/26/24 08:07 Dose: 500 mcg Documented By: BONILLA Doxycycline Monohydrate (Doxycycline Monohydrate 100 Mg Capsule) 100 mg PO Q12H [facility] Last Admin: 04/26/24 00:13 Dose: 100 mg Documented By: ALEJANDRA Gabapentin (Gabapentin 300 Mg Capsule) 300 mg PO BID [facility] Last Admin: 04/26/24 08:07 Dose: 300 mg Documented By: BONILLA Heparin Sodium (Porcine) (Heparin Sodium,Porcine 5,000 Unit/Ml Vial) 5,000 unit SUBCUT Q8H [facility] Last Admin: 04/26/24 08:08 Dose: 5,000 unit Documented By: BONILLA Magnesium Hydroxide (Milk Of Magnesia 30 Ml Oral.Susp) 30 ml PO DAILY PRN PRN Reason: Constipation Melatonin (Melatonin 3 Mg Tablet) 3 mg PO BEDTIME@1999 [facility] Last Admin: 04/25/24 20:37 Dose: 3 mg Documented By: ALEJANDRA Melatonin (Melatonin 3 Mg Tablet) 6 mg PO BEDTIME PRN PRN Reason: Insomnia Midodrine (Midodrine Hcl 5 Mg Tablet) 5 mg PO TID [facility] Last Admin: 04/26/24 08:07 Dose: 5 mg Documented By: BONILLA Morphine Sulfate (Morphine Sulfate 4 Mg/Ml Cartridge) 2 mg IVPUSH Q4H PRN; Protocol PRN Reason: Pain, Severe (Pain Scale 7-10) Multivitamins/Vitamin C (Multivitamin Tablet) 1 tab PO DAILY [facility] Last Admin: 04/26/24 08:07 Dose: 1 tab Documented By: BONILLA Non-Formulary Medication (Topiramate) 15 mg PO DAILY@1999 [facility] Nystatin (Nystatin Powder 15 Gm Bottle) 1 appl TOPICAL BID [facility]; Protocol Last Admin: 04/26/24 10:35 Dose: 1 appl Documented By: BONILLA Omeprazole (Omeprazole 20 Mg Scott.) 20 mg PO DAILY@0630 [facility] Last Admin: 04/26/24 06:30 Dose: 20 mg Documented By: ALEJANDRA Ondansetron HCl (Ondansetron Hcl 4 Mg/2 Ml Vial) 4 mg IVPUSH Q8H PRN PRN Reason: Nausea and Vomiting Prednisone (Prednisone 5 Mg Tablet) 5 mg PO DAILY [facility] Last Admin: 04/26/24 08:07 Dose: 5 mg Documented By: BONILLA Sertraline HCl (Sertraline Hcl 25 Mg Tablet) 25 mg PO DAILY@0800 [facility] Last Admin: 04/26/24 08:07 Dose: 25 mg Documented By: BONILLA Sertraline HCl (Sertraline Hcl 100 Mg Tablet) 100 mg PO DAILY@0800 [facility] Last Admin: 04/26/24 08:07 Dose: 100 mg Documented By: BONILLA Sodium Biphosphate/Sodium Phosphate (Sodium Phosphate,[place]-Dibasic 133 Ml Enema) 118 ml [place] DAILY PRN PRN Reason: Constipation Sodium Chloride (0.9 % Sodium Chloride Flush 3 Ml Syringe) 3 ml IVFLUSH QSHIFT [facility] Last Admin: 04/26/24 08:17 Dose: 3 ml Documented By: BONILLA Labs 04/26/24 06:13 04/26/24 06:13 Labs: Laboratory Results - last 24 hr 04/26/24 06:13 MCV 94.0 MCH 30.6 MCHC 32.5 RDW 13.9 Plt Count 326 MPV 9.8 Absolute Nucleated RBC 0.000 Nucleated RBC % (auto) 0.0 Anion Gap 10 L Estim Creat Clear Calc 40.8 Estimated GFR 37 Random Glucose 92 Calcium 8.2 L Microbiology Microbiology Results: Microbiology 04/21/24 12:11 Gram Stain - Final Buttock Right Routine Culture - Final Proteus mirabilis Enterococcus faecalis Assessment and Plan (1) Abscess of right buttock: Status: Acute (2) Sepsis: Status: Acute Plan 73M PMH significant for?dementia, myasthenia gravis chronically on prednisone 5mg, COPD chronically on 2-3L NC, CAD, and HLD who presented to the ED from SNF with?right buttock abscess that has failed outpatient therapy. ÓSCAR suspected due to vancomcyin tox dced vanc, monitor nephro consult Sepsis 2/ Right buttock cellulitis and abscess (due to Proteus) complicated with lactic acidosis abscess drained in the ED CT scan concerning for possible L4 fracture and infection ( it was reported before in 2022 MRI), ESR in the 80s - ID input appreciated; MRI not needed, unlikley to change mgmt blood cx negative Gen surg appreciated - packing removed 04/25; dressing changes daily ID follow up noted -- PO doxy x 2 weeks; started 04/25 end 05/08/24 chronic bean continue care urine growing klebsiella and psueudomonas -- likely colonized, does not need to be treated Myasthenia gravis Continue home prednisone Presumed orthostatic hypotension Continue midodrine Mood disorder Continue home meds HLD Continue statin COPD / chronic hypoxic resp failure continue baseline meds and o2 DNR/DNI DVT Prophylaxis: Heparin dispo: LTC once renal function improves/stabilizes Quality Stroke Does the patient have a stroke diagnosis?: No VTE Prior VTE?: No VTE Risk Level:: Medical - moderate - high VTE Device Contraindication: Treatment Not Indicated VTE Drug Contraindication: N/A - Med Ordered
[2024-04-26 15:32] VITALS: BP 105/70; PULSE 85; RESP 18; TEMP 36.8; O2SAT 98
[2024-04-26 19:28] VITALS: BP 129/68; PULSE 71; RESP 18; TEMP 36.8; O2SAT 97
[2024-04-26] MEDS: Atorvastatin Calcium 10 MG TABLET PO (20:12)
[2024-04-26] MEDS: Melatonin 3 MG TABLET PO (20:13)
[2024-04-26] MEDS: Artificial Tears 15 ML DROPS 1 DROP EYE-BOTH (20:16)
[2024-04-26 23:44] VITALS: BP 123/69; PULSE 68; RESP 18; TEMP 36.6; O2SAT 97
[2024-04-27] MEDS: Heparin Sodium,Porcine 5,000 UNIT/ML VIAL 5000 UNIT SUBCUT ×3 (01:03→16:19)
[2024-04-27] MEDS: Omeprazole 20 MG CAPSULE.DR PO (05:03)
[2024-04-27 06:44] LABS: Hematocrit 27.7 % (42.0-52.0); Hemoglobin 9.1 g/dl (14.0-18.0); Mean Corpuscular HGB Conc 32.9 g/dl (31.0-36.0); Mean Corpuscular Hemoglobin 30.7 pg (27.0-33.0); Mean Corpuscular Volume 93.6 fL (80.0-98.0); Mean Platelet Volume 9.7 fL (9.4-12.4); Platelet Count 312 X10*3/uL (160-400); Red Blood Count 2.96 X10*6/uL (4.60-5.80); Red Cell Distribution Width 13.6 % (11.0-16.0); White Blood Count 8.8 X10*3/uL (4.8-10.8)
[2024-04-27 06:51] LABS: Anion Gap 11 (12-20); Blood Urea Nitrogen 15 mg/dL (9-16); Calcium 8.1 mg/dL (8.4-10.2); Carbon Dioxide 25 mmol/L (22-29); Chloride 109 mmol/L (96-108); Creatinine Clr Calc Pharmacy 45.9; Estimated Glomerular Filt Rate 42; Glucose Random 92 mg/dL (60-115); Potassium 3.1 mmol/L (3.3-5.1); Sodium 142 mmol/L (135-145)
[2024-04-27 07:14] VITALS: BP 106/61; PULSE 75; RESP 18; TEMP 36.2; O2SAT 97
--- NOTE | 2024-04-27 08:57 | P.CONNP_ITS ---
History of Present Illness Reason for Consult Consult date: 04/27/24 Reason for consult: ÓSCAR Chief Complaint Chief complaint: Sepsis, abscess History of Present Illness Narrative: 73 years old male with a PMH significant for?dementia, myasthenia gravis chronically on prednisone 5mg, COPD chronically on 2-3L NC, CAD, and HLD who presents to the ED from SNF with?right buttock abscess that has failed outpatient therapy. Received Vanco and developed ÓSCAR Peak level of 27 Currently non oliguric Review of Systems Constitutional: Denies fever(s) and Denies weight loss Cardiovascular: Denies chest pain Respiratory: Denies cough and Denies hemoptysis Gastrointestinal: Denies abdominal pain, Denies diarrhea and Denies nausea Musculoskeletal: Denies back pain Denies focal weakness PMFSH Past Medical History Medical History Abscess of right buttock Acute on chronic urinary retention COPD (chronic obstructive pulmonary disease) Compression fx, lumbar spine Myasthenia gravis Dementia High cholesterol Constipation GERD (gastroesophageal reflux disease) Depression BPH (benign prostatic hyperplasia) Compression fx, lumbar spine Compression fx, thoracic spine Myasthenia gravis Urinary retention Dementia Family History Family history: reviewed and not pertinent Surgical History Surgical History H/O thymectomy Social History Social History Household Members: Other Household Members Other:: pt from [facility] Housing: Long-Term Housing Other:: [facility] Do you presently have visiting nurse or other home services: Yes (Pt lives at [facility]) Alcohol intake: never Patient Tobacco Use Status: Former Tobacco user Advance Directives Date on File: 07/17/21 service: No Current occupational status: retired and disabled Meds Allergies Allergy/AdvReac Type Severity Reaction Status Date / Time bacitracin Allergy Unknown Verified 04/21/24 11:56 [From Neosporin ([id number])] iodine Allergy Unknown Verified 04/21/24 11:56 neomycin Allergy Unknown Verified 04/21/24 11:56 [From Neosporin ([id number])] polymyxin B Allergy Unknown Verified 04/21/24 11:56 [From Neosporin ([id number])] Active Medications: Current Medications Acetaminophen (Acetaminophen 325 Mg Tablet) 650 mg PO Q4H PRN PRN Reason: Fever Or Pain Artificial Tears (Artificial Tears 15 Ml Drops) 1 drop EYE-BOTH BID [facility] Last Admin: 04/26/24 20:16 Dose: 1 drop Aspirin (Aspirin 81 Mg Tab.Chew) 81 mg PO DAILY [facility] Last Admin: 04/26/24 08:07 Dose: 81 mg Atorvastatin Calcium (Atorvastatin Calcium 10 Mg Tablet) 10 mg PO BEDTIME@1999 [facility] Last Admin: 04/26/24 20:12 Dose: 10 mg Bisacodyl (Bisacodyl 10 Mg Supp.Rect) 10 mg RI DAILY PRN PRN Reason: Constipation Calcium Carbonate (Calcium Carbonate 750 Mg Tab.Chew) 750 mg PO Q4H PRN PRN Reason: Heartburn Cyanocobalamin (Cyanocobalamin (Vitamin B-12) 500 Mcg Tablet) 500 mcg PO DAILY@0800 [facility] Last Admin: 04/26/24 08:07 Dose: 500 mcg Doxycycline Monohydrate (Doxycycline Monohydrate 100 Mg Capsule) 100 mg PO Q12H [facility] Last Admin: 04/26/24 22:36 Dose: 100 mg Gabapentin (Gabapentin 300 Mg Capsule) 300 mg PO BID [facility] Last Admin: 04/26/24 20:12 Dose: 300 mg Heparin Sodium (Porcine) (Heparin Sodium,Porcine 5,000 Unit/Ml Vial) 5,000 unit SUBCUT Q8H [facility] Last Admin: 04/27/24 01:03 Dose: 5,000 unit Magnesium Hydroxide (Milk Of Magnesia 30 Ml Oral.Susp) 30 ml PO DAILY PRN PRN Reason: Constipation Melatonin (Melatonin 3 Mg Tablet) 3 mg PO BEDTIME@1999 [facility] Last Admin: 04/26/24 20:13 Dose: 3 mg Melatonin (Melatonin 3 Mg Tablet) 6 mg PO BEDTIME PRN PRN Reason: Insomnia Midodrine (Midodrine Hcl 5 Mg Tablet) 5 mg PO TID [facility] Last Admin: 04/26/24 21:00 Dose: Not Given Multivitamins/Vitamin C (Multivitamin Tablet) 1 tab PO DAILY [facility] Last Admin: 04/26/24 08:07 Dose: 1 tab Non-Formulary Medication (Topiramate) 15 mg PO DAILY@1999 [facility] Nystatin (Nystatin Powder 15 Gm Bottle) 1 appl TOPICAL BID [facility]; Protocol Last Admin: 04/26/24 20:18 Dose: 1 appl Omeprazole (Omeprazole 20 Mg Capsule.) 20 mg PO DAILY@629 [facility] Last Admin: 04/27/24 05:03 Dose: 20 mg Ondansetron HCl (Ondansetron Hcl 4 Mg/2 Ml Vial) 4 mg IVPUSH Q8H PRN PRN Reason: Nausea and Vomiting Prednisone (Prednisone 5 Mg Tablet) 5 mg PO DAILY [facility] Last Admin: 04/26/24 08:07 Dose: 5 mg Sertraline HCl (Sertraline Hcl 25 Mg Tablet) 25 mg PO DAILY@08 [facility] Last Admin: 04/26/24 08:07 Dose: 25 mg Sertraline HCl (Sertraline Hcl 100 Mg Tablet) 100 mg PO DAILY@08 [facility] Last Admin: 04/26/24 08:07 Dose: 100 mg Sodium Biphosphate/Sodium Phosphate (Sodium Phosphate,[place]-Dibasic 133 Ml Enema) 118 ml RI DAILY PRN PRN Reason: Constipation Sodium Chloride (0.9 % Sodium Chloride Flush 3 Ml Syringe) 3 ml IVFLUSH QSHIFT [facility] Last Admin: 04/26/24 20:19 Dose: 3 ml Home Medications ?Medication ?Instructions ?Recorded ?Confirmed ?Last Taken ?Type atorvastatin 10 mg tablet 1 tab PO BEDTIME@199907/16/21 04/21/24 03/20/24 20:00 History cyanocobalamin (vitamin B-12) 500 mcg PO DAILY@79907/16/21 04/21/24 03/20/24 08:00 History 1,000 mcg capsule gabapentin 300 mg capsule 1 cap PO BID 07/16/21 04/21/24 03/20/24 20:00 History melatonin 3 mg tablet 3 mg PO BEDTIME@199907/16/21 04/21/24 03/20/24 20:00 History multivitamin 1 tab PO DAILY 07/16/21 04/21/24 03/20/24 08:00 History omeprazole 20 mg capsule,delayed 1 cap PO DAILY@62907/16/21 04/21/24 03/20/24 08:00 History release prednisone 5 mg tablet 1 tab PO DAILY 07/16/21 04/21/24 03/20/24 08:00 History sertraline 100 mg tablet 1 tab PO DAILY@79907/16/21 04/21/24 03/20/24 08:00 History sertraline 50 mg tablet 25 mg PO DAILY@0800 07/16/21 04/21/24 03/20/24 08:00 History bisacodyl 10 mg rectal suppository 10 mg RI DAILY PRN Constipation 02/09/22 04/21/24 Unknown History sodium phosphates 19 gram-7 118 ml RI DAILY PRN Constipation 02/09/22 04/21/24 Unknown History gram/118 mL enema (Fleet Enema) acetaminophen 325 mg tablet 650 mg PO Q4H PRN Fever Or Pain 06/01/22 04/21/24 Unknown History magnesium hydroxide 400 mg/5 mL 30 ml PO DAILY PRN Constipation 06/01/22 04/21/24 Unknown History oral suspension (Milk of Magnesia) midodrine 5 mg tablet 5 mg PO TID 11/16/22 04/21/24 03/20/24 18:00 History peg [id number] 1 1 drp ophthalmic (eye) BID 11/16/22 04/21/24 03/20/24 20:00 History %-0.2 %-0.2 % eye drops (Artificial Tears ([id number])) guaifenesin 400 mg tablet 400 mg PO BID 02/21/23 04/21/24 03/20/24 20:00 History aspirin 81 mg chewable tablet 81 mg PO DAILY 03/21/24 04/21/24 03/20/24 08:00 History nystatin 100,000 unit/gram topical 1 appl topical BID 03/21/24 04/21/24 03/20/24 20:00 History powder topiramate 15 mg sprinkle capsule 15 mg PO DAILY@199903/21/24 04/21/24 03/20/24 20:00 History miconazole nitrate 2 % topical 1 spray topical BID 04/21/24 04/21/24 Unknown History spray powder Physical Exam Vital Signs: Last Vital Signs Temp 97.1 F 04/27/24 07:14 Pulse 75 04/27/24 07:14 Resp 18 04/27/24 07:14 BP 106/61 04/27/24 07:14 Pulse Ox 97 04/27/24 07:14 O2 Del Method Nasal Cannula 04/27/24 07:14 O2 Flow Rate 2 04/27/24 07:14 BMI result Body Mass Index 22.5 Neck Neck: Yes supple Resp Auscultation: clear to auscultation bilaterally Cardio Palpation: no palpable S3 Heart sounds: no rubs GI Palpation (GI): Soft to palpation Auscultation: normal bowel sounds Neuro Motor exam (neuro): no asterixis Results Lab Results 04/27/24 06:11 04/28/24 06:43 Lab results: Chemistry 04/25/24 04/26/24 04/27/24 06:19 06:13 06:11 Sodium 144 142 Potassium 3.0 L 3.2 L 3.1 L Carbon Dioxide 27 25 BUN 17 H 15 Creatinine 1.74 H 1.81 H 1.61 H Calcium 8.2 L 8.1 L Hematology 04/26/24 04/27/24 06:13 06:11 WBC 8.2 8.8 Hgb 9.2 L 9.1 L Plt Count 326 312 Assessment and Plan (1) ÓSCAR (acute kidney injury): Status: Acute Plan ÓSCAR due to tubular injury due to Vanco Peak Cr 1.8 Dropped to 1.6 today non oliguric Expect recovery Hold Vanco and other nephrotoxins Keep I > O Hypokalemia Replace orally Procedures Date of Service Date of Service: 04/28/24
[2024-04-27] MEDS: Cyanocobalamin (Vitamin B-12) 500 MCG TABLET PO (09:34)
[2024-04-27] MEDS: Sertraline HCL 100 MG TABLET PO (09:35)
[2024-04-27] MEDS: Multivitamin TABLET 1 TAB PO (09:35)
[2024-04-27] MEDS: predniSONE 5 MG TABLET PO (09:35)
[2024-04-27] MEDS: Gabapentin 300 MG CAPSULE PO ×2 (09:35→21:03)
[2024-04-27] MEDS: Midodrine HCl 5 MG TABLET PO ×2 (09:35→16:18)
[2024-04-27] MEDS: Aspirin 81 MG TAB.CHEW PO (09:35)
[2024-04-27] MEDS: Doxycycline Monohydrate 100 MG CAPSULE PO ×2 (09:35→21:03)
[2024-04-27] MEDS: 0.9 % Sodium Chloride Flush 3 ML SYRINGE IVFLUSH ×3 (09:36→21:04)
[2024-04-27] MEDS: Nystatin Powder 15 GM BOTTLE 1 APPL TOPICAL ×2 (09:43→21:04)
[2024-04-27] MEDS: Artificial Tears 15 ML DROPS 1 DROP EYE-BOTH ×2 (09:51→21:04)
[2024-04-27] MEDS: Sertraline HCL 25 MG TABLET PO (09:51)
--- NOTE | 2024-04-27 10:25 | MHC.CM.PN ---
PER MD ROUNDS, PT LIKELY TO BE CLEARED FOR DC TOMORROW DCP: RETURN TO LTC AT [facility] VIA BLS
--- NOTE | 2024-04-27 10:58 | P.PNIM_ITS ---
Subjective Subjective Date of Service: 04/27/24 Interval History: seen and examined feeling tired today noted ÓSCAR Review of Systems Negative except HPI/interval history. Physical Exam 2 Vital Signs: Vital Signs: Last Vital Signs Temp 97.1 F 04/27/24 07:14 Pulse 75 04/27/24 07:14 Resp 18 04/27/24 07:14 BP 106/61 04/27/24 07:14 Pulse Ox 97 04/27/24 07:14 O2 Del Method Nasal Cannula 04/27/24 07:14 O2 Flow Rate 2 04/27/24 07:14 BMI result Body Mass Index 22.5 Neck: Neck: Yes supple Resp: Auscultation: clear to auscultation bilaterally Cardio: Palpation: no palpable S3 Heart sounds: no rubs GI: Palpation (GI): Soft to palpation Auscultation: normal bowel sounds Neuro: Motor exam (neuro): no asterixis Objective Data Active Medications Acetaminophen (Acetaminophen 325 Mg Tablet) 650 mg PO Q4H PRN PRN Reason: Fever Or Pain Artificial Tears (Artificial Tears 15 Ml Drops) 1 drop EYE-BOTH BID [facility] Last Admin: 04/27/24 09:51 Dose: 1 drop Documented By: HOWIE Aspirin (Aspirin 81 Mg Tab.Chew) 81 mg PO DAILY [facility] Last Admin: 04/27/24 09:35 Dose: 81 mg Documented By: HOWIE Atorvastatin Calcium (Atorvastatin Calcium 10 Mg Tablet) 10 mg PO BEDTIME@2000 [facility] Last Admin: 04/26/24 20:12 Dose: 10 mg Documented By: MOY Bisacodyl (Bisacodyl 10 Mg Supp.Rect) 10 mg NV DAILY PRN PRN Reason: Constipation Calcium Carbonate (Calcium Carbonate 750 Mg Tab.Chew) 750 mg PO Q4H PRN PRN Reason: Heartburn Cyanocobalamin (Cyanocobalamin (Vitamin B-12) 500 Mcg Tablet) 500 mcg PO DAILY@0800 [facility] Last Admin: 04/27/24 09:34 Dose: 500 mcg Documented By: HOWIE Doxycycline Monohydrate (Doxycycline Monohydrate 100 Mg Capsule) 100 mg PO Q12H [facility] Last Admin: 04/27/24 09:35 Dose: 100 mg Documented By: HOWIE Gabapentin (Gabapentin 300 Mg Capsule) 300 mg PO BID [facility] Last Admin: 04/27/24 09:35 Dose: 300 mg Documented By: HOWIE Heparin Sodium (Porcine) (Heparin Sodium,Porcine 5,000 Unit/Ml Vial) 5,000 unit SUBCUT Q8H [facility] Last Admin: 04/27/24 09:35 Dose: 5,000 unit Documented By: HOWIE Magnesium Hydroxide (Milk Of Magnesia 30 Ml Oral.Susp) 30 ml PO DAILY PRN PRN Reason: Constipation Melatonin (Melatonin 3 Mg Tablet) 3 mg PO BEDTIME@1999 [facility] Last Admin: 04/26/24 20:13 Dose: 3 mg Documented By: MOY Melatonin (Melatonin 3 Mg Tablet) 6 mg PO BEDTIME PRN PRN Reason: Insomnia Midodrine (Midodrine Hcl 5 Mg Tablet) 5 mg PO TID [facility] Last Admin: 04/27/24 09:35 Dose: 5 mg Documented By: HOWIE Multivitamins/Vitamin C (Multivitamin Tablet) 1 tab PO DAILY [facility] Last Admin: 04/27/24 09:35 Dose: 1 tab Documented By: HOWIE Non-Formulary Medication (Topiramate) 15 mg PO DAILY@1999 [facility] Nystatin (Nystatin Powder 15 Gm Bottle) 1 appl TOPICAL BID [facility]; Protocol Last Admin: 04/27/24 09:43 Dose: 1 appl Documented By: HOWIE Omeprazole (Omeprazole 20 Mg Capsule.) 20 mg PO DAILY@0630 [facility] Last Admin: 04/27/24 05:03 Dose: 20 mg Documented By: MOY Ondansetron HCl (Ondansetron Hcl 4 Mg/2 Ml Vial) 4 mg IVPUSH Q8H PRN PRN Reason: Nausea and Vomiting Prednisone (Prednisone 5 Mg Tablet) 5 mg PO DAILY [facility] Last Admin: 04/27/24 09:35 Dose: 5 mg Documented By: HOWIE Sertraline HCl (Sertraline Hcl 25 Mg Tablet) 25 mg PO DAILY@0800 [facility] Last Admin: 04/27/24 09:51 Dose: 25 mg Documented By: HOWIE Sertraline HCl (Sertraline Hcl 100 Mg Tablet) 100 mg PO DAILY@0800 [facility] Last Admin: 04/27/24 09:35 Dose: 100 mg Documented By: HOWIE Sodium Biphosphate/Sodium Phosphate (Sodium Phosphate,[place]-Dibasic 133 Ml Enema) 118 ml [place] DAILY PRN PRN Reason: Constipation Sodium Chloride (0.9 % Sodium Chloride Flush 3 Ml Syringe) 3 ml IVFLUSH QSHIFT [facility] Last Admin: 04/27/24 09:36 Dose: 3 ml Documented By: HOWIE Labs 04/27/24 06:11 04/27/24 06:11 Labs: Laboratory Results - last 24 hr 04/27/24 06:11 MCV 93.6 MCH 30.7 MCHC 32.9 RDW 13.6 Plt Count 312 MPV 9.7 Absolute Nucleated RBC 0.000 Nucleated RBC % (auto) 0.0 Anion Gap 11 L Estim Creat Clear Calc 45.9 Estimated GFR 42 Random Glucose 92 Calcium 8.1 L Microbiology Microbiology Results: Microbiology 04/21/24 12:16 Blood Culture - Final Blood - Venous No growth after 5 days. 04/21/24 12:11 Blood Culture - Final Blood - Venous No growth after 5 days. Assessment and Plan (1) Abscess of right buttock: Status: Acute (2) Sepsis: Status: Acute Plan 73M PMH significant for?dementia, myasthenia gravis chronically on prednisone 5mg, COPD chronically on 2-3L NC, CAD, and HLD who presented to the ED from SNF with?right buttock abscess that has failed outpatient therapy. ÓSCAR suspected due to vancomcyin tox dced vanc, monitor nephro following Sepsis 2/ Right buttock cellulitis and abscess (due to Proteus) complicated with lactic acidosis abscess drained in the ED CT scan concerning for possible L4 fracture and infection ( it was reported before in 2022 MRI), ESR in the 80s - ID input appreciated; MRI not needed, unlikley to change mgmt blood cx negative Gen surg appreciated - packing removed 04/25; dressing changes daily ID follow up noted -- PO doxy x 2 weeks; started 04/25 end 05/08/24 chronic bean continue care urine growing klebsiella and psueudomonas -- likely colonized, does not need to be treated Myasthenia gravis Continue home prednisone Presumed orthostatic hypotension Continue midodrine Mood disorder Continue home meds HLD Continue statin COPD / chronic hypoxic resp failure continue baseline meds and o2 DNR/DNI DVT Prophylaxis: Heparin dispo: LTC once renal function improves/stabilizes Quality Stroke Does the patient have a stroke diagnosis?: No VTE Prior VTE?: No VTE Risk Level:: Medical - moderate - high VTE Device Contraindication: Treatment Not Indicated VTE Drug Contraindication: N/A - Med Ordered
[2024-04-27] MEDS: Potassium Chloride ER 20 MEQ TAB.ER.PRT 40 MEQ PO (11:57)
[2024-04-27 16:03] VITALS: BP 118/73; PULSE 93; RESP 16; TEMP 36.8; O2SAT 96
[2024-04-27] MEDS: Melatonin 3 MG TABLET PO (21:03)
[2024-04-27] MEDS: Atorvastatin Calcium 10 MG TABLET PO (21:03)
[2024-04-27 23:16] VITALS: BP 121/69; PULSE 85; RESP 20; TEMP 36.1; O2SAT 94
[2024-04-28] MEDS: Omeprazole 20 MG CAPSULE.DR PO (05:32)
[2024-04-28] MEDS: Heparin Sodium,Porcine 5,000 UNIT/ML VIAL 5000 UNIT SUBCUT ×2 (05:32→13:14)
[2024-04-28 07:07] VITALS: BP 112/70; PULSE 68; RESP 18; TEMP 36.6; O2SAT 97
[2024-04-28 07:08] LABS: Anion Gap 12 (12-20); Blood Urea Nitrogen 19 mg/dL (9-16); Calcium 8.3 mg/dL (8.4-10.2); Carbon Dioxide 26 mmol/L (22-29); Chloride 110 mmol/L (96-108); Creatinine Clr Calc Pharmacy 43.5; Estimated Glomerular Filt Rate 40; Glucose Random 98 mg/dL (60-115); Potassium 3.7 mmol/L (3.3-5.1); Sodium 144 mmol/L (135-145)
--- NOTE | 2024-04-28 08:49 | HO.PM.IMPN ---
Subjective Subjective Date of Service: 04/28/24 Interval History: no new compaints Review of Systems Negative except HPI/interval history. Physical Exam Vital Signs: Vital Signs: Last Vital Signs Temp 97.9 F 04/28/24 07:07 Pulse 68 04/28/24 07:07 Resp 18 04/28/24 07:07 BP 112/70 04/28/24 07:07 Pulse Ox 97 04/28/24 07:07 O2 Del Method Nasal Cannula 04/28/24 07:07 O2 Flow Rate 2 04/28/24 07:07 BMI result Body Mass Index 22.5 Neck: Neck: Yes supple Resp: Auscultation: clear to auscultation bilaterally Cardio: Palpation: no palpable S3 Heart sounds: no rubs GI: Palpation (GI): Soft to palpation Auscultation: normal bowel sounds Neuro: Motor exam (neuro): no asterixis Objective Data Active Medications Acetaminophen (Acetaminophen 325 Mg Tablet) 650 mg PO Q4H PRN PRN Reason: Fever Or Pain Artificial Tears (Artificial Tears 15 Ml Drops) 1 drop EYE-BOTH BID [facility] Last Admin: 04/27/24 21:04 Dose: 1 drop Documented By: SEBASTIAN Aspirin (Aspirin 81 Mg Tab.Chew) 81 mg PO DAILY [facility] Last Admin: 04/27/24 09:35 Dose: 81 mg Documented By: HOWIE Atorvastatin Calcium (Atorvastatin Calcium 10 Mg Tablet) 10 mg PO BEDTIME@2000 [facility] Last Admin: 04/27/24 21:03 Dose: 10 mg Documented By: SEBASTIAN Bisacodyl (Bisacodyl 10 Mg Supp.Rect) 10 mg [place] DAILY PRN PRN Reason: Constipation Calcium Carbonate (Calcium Carbonate 750 Mg Tab.Chew) 750 mg PO Q4H PRN PRN Reason: Heartburn Cyanocobalamin (Cyanocobalamin (Vitamin B-12) 500 Mcg Tablet) 500 mcg PO DAILY@0800 [facility] Last Admin: 04/27/24 09:34 Dose: 500 mcg Documented By: HOWIE Doxycycline Monohydrate (Doxycycline Monohydrate 100 Mg Capsule) 100 mg PO Q12H [facility] Last Admin: 04/27/24 21:03 Dose: 100 mg Documented By: SEBASTIAN Gabapentin (Gabapentin 300 Mg Capsule) 300 mg PO BID [facility] Last Admin: 04/27/24 21:03 Dose: 300 mg Documented By: SEBASTIAN Heparin Sodium (Porcine) (Heparin Sodium,Porcine 5,000 Unit/Ml Vial) 5,000 unit SUBCUT Q8H [facility] Last Admin: 04/28/24 05:32 Dose: 5,000 unit Documented By: SEBASTIAN Magnesium Hydroxide (Milk Of Magnesia 30 Ml Oral.Susp) 30 ml PO DAILY PRN PRN Reason: Constipation Melatonin (Melatonin 3 Mg Tablet) 3 mg PO BEDTIME@1999 [facility] Last Admin: 04/27/24 21:03 Dose: 3 mg Documented By: SEBASTIAN Melatonin (Melatonin 3 Mg Tablet) 6 mg PO BEDTIME PRN PRN Reason: Insomnia Midodrine (Midodrine Hcl 5 Mg Tablet) 5 mg PO TID [facility] Last Admin: 04/27/24 20:47 Dose: Not Given Documented By: SEBASTIAN Non-Admin Reason: per dose instructions Multivitamins/Vitamin C (Multivitamin Tablet) 1 tab PO DAILY [facility] Last Admin: 04/27/24 09:35 Dose: 1 tab Documented By: HOWIE Nystatin (Nystatin Powder 15 Gm Bottle) 1 appl TOPICAL BID [facility]; Protocol Last Admin: 04/27/24 21:04 Dose: 1 appl Documented By: SEBASTIAN Omeprazole (Omeprazole 20 Mg Capsule.) 20 mg PO DAILY@0630 [facility] Last Admin: 04/28/24 05:32 Dose: 20 mg Documented By: SEBASTIAN Ondansetron HCl (Ondansetron Hcl 4 Mg/2 Ml Vial) 4 mg IVPUSH Q8H PRN PRN Reason: Nausea and Vomiting Prednisone (Prednisone 5 Mg Tablet) 5 mg PO DAILY [facility] Last Admin: 04/27/24 09:35 Dose: 5 mg Documented By: HOWIE Sertraline HCl (Sertraline Hcl 25 Mg Tablet) 25 mg PO DAILY@0800 [facility] Last Admin: 04/27/24 09:51 Dose: 25 mg Documented By: HOWIE Sertraline HCl (Sertraline Hcl 100 Mg Tablet) 100 mg PO DAILY@0800 [facility] Last Admin: 04/27/24 09:35 Dose: 100 mg Documented By: HOWIE Sodium Biphosphate/Sodium Phosphate (Sodium Phosphate,[place]-Dibasic 133 Ml Enema) 118 ml MT DAILY PRN PRN Reason: Constipation Sodium Chloride (0.9 % Sodium Chloride Flush 3 Ml Syringe) 3 ml IVFLUSH QSHIFT [facility] Last Admin: 04/27/24 21:04 Dose: 3 ml Documented By: SEBASTIAN Labs 04/27/24 06:11 04/28/24 06:43 Labs: Laboratory Results - last 24 hr 04/28/24 06:43 Hold Purple Top SEE NOTE Anion Gap 12 Estim Creat Clear Calc 43.5 Estimated GFR 40 Random Glucose 98 Calcium 8.3 L Assessment and Plan (1) Abscess of right buttock: Status: Acute (2) Sepsis: Status: Acute Plan 73M PMH significant for?dementia, myasthenia gravis chronically on prednisone 5mg, COPD chronically on 2-3L NC, CAD, and HLD who presented to the ED from SNF with?right buttock abscess that has failed outpatient therapy. ÓSCAR suspected due to vancomcyin tox dced vanc, monitor nephro following creatinine stable around 1.6-1.8 Sepsis 2/2 Right buttock cellulitis and abscess (due to Proteus) complicated with lactic acidosis abscess drained in the ED CT scan concerning for possible L4 fracture and infection ( it was reported before in 2022 MRI), ESR in the 80s - ID input appreciated; MRI not needed, unlikley to change mgmt blood cx negative Gen surg appreciated - packing removed 04/25; dressing changes daily ID follow up noted -- PO doxy x 2 weeks; started 04/25 end 05/08/24 chronic bean continue care urine growing klebsiella and psueudomonas -- likely colonized, does not need to be treated Myasthenia gravis Continue home prednisone Presumed orthostatic hypotension Continue midodrine Mood disorder Continue home meds HLD Continue statin COPD / chronic hypoxic resp failure continue baseline meds and o2 DNR/DNI DVT Prophylaxis: Heparin dispo: LTC once renal function improves/stabilizes Quality Stroke Does the patient have a stroke diagnosis?: No VTE Prior VTE?: No VTE Risk Level:: Medical - moderate - high VTE Device Contraindication: Treatment Not Indicated VTE Drug Contraindication: N/A - Med Ordered
--- NOTE | 2024-04-28 09:03 | MHC.CM.PN ---
Addendum entered by Luci Ashley RN 04/28/24 11:53: [facility] PAGE BLS TRANSPORT AT 1:30PM, CM ATTEMPTED TO CONTACT LIAISON [facility]IA [employer] AND VIA CELL/OFFICE NUMBER, CM CONTACTED [facility] ADMISSIONS [phone] (# FROM [employer]) DETAILED MESSAGE LEFT. Original Note: IMM 04/28/24 DELIVERED TO SON/HCP BAR KRYS AT [phone] D/T PT'S DEMENTIA, BAR AGREEABLE TO DC PLAN AND PER DISCUSSION COPY TO BE SENT VIA CERTIFIED MAIL, PT WILL RETURN TO [facility] VIA [facility] FOR BLS TRANSPORT.
[2024-04-28] MEDS: Doxycycline Monohydrate 100 MG CAPSULE PO (09:15)
[2024-04-28] MEDS: Sertraline HCL 25 MG TABLET PO (09:15)
[2024-04-28] MEDS: Cyanocobalamin (Vitamin B-12) 500 MCG TABLET PO (09:16)
[2024-04-28] MEDS: Midodrine HCl 5 MG TABLET PO (09:16)
[2024-04-28] MEDS: Sertraline HCL 100 MG TABLET PO (09:16)
[2024-04-28] MEDS: Aspirin 81 MG TAB.CHEW PO (09:16)
[2024-04-28] MEDS: Multivitamin TABLET 1 TAB PO (09:16)
[2024-04-28] MEDS: 0.9 % Sodium Chloride Flush 3 ML SYRINGE IVFLUSH (09:16)
[2024-04-28] MEDS: predniSONE 5 MG TABLET PO (09:16)
[2024-04-28] MEDS: Gabapentin 300 MG CAPSULE PO (09:16)
[2024-04-28] MEDS: Nystatin Powder 15 GM BOTTLE 1 APPL TOPICAL (09:17)
--- NOTE | 2024-04-28 09:57 | P.PNNP_ITS ---
Subjective Subjective Date of Service: 04/28/24 Interval history: Events noted Physical Exam 2 Vital Signs: Vital Signs: Last Vital Signs Temp 97.9 F 04/28/24 07:07 Pulse 68 04/28/24 07:07 Resp 18 04/28/24 07:07 BP 112/70 04/28/24 07:07 Pulse Ox 97 04/28/24 07:07 O2 Del Method Nasal Cannula 04/28/24 07:07 O2 Flow Rate 2 04/28/24 07:07 BMI result Body Mass Index 22.5 Comfortable Neck supple no JVD. Lungs entry equal no rales. Heart S1-S2 heard no gallop or rub. Abdomen soft nontender. Neuro alert awake oriented. No asterixis. Extremities no edema. Objective Data Labs 04/27/24 06:11 04/28/24 06:43 Labs: Laboratory Results - last 24 hr 04/28/24 06:43 Hold Purple Top SEE NOTE Sodium 144 Potassium 3.7 Chloride 110 H Carbon Dioxide 26 Anion Gap 12 BUN 19 H Creatinine 1.70 H Estim Creat Clear Calc 43.5 Estimated GFR 40 Random Glucose 98 Calcium 8.3 L Microbiology Microbiology Results: Microbiology 04/21/24 12:16 Blood - Venous Blood Culture - Final No growth after 5 days. 04/21/24 12:11 Blood - Venous Blood Culture - Final No growth after 5 days. 04/21/24 12:11 Buttock Right Gram Stain - Final 04/21/24 12:11 Buttock Right Routine Culture - Final Proteus mirabilis Enterococcus faecalis 04/21/24 Unknown Urine clean catch - Clean Catch Midstream Urine Culture - Final Klebsiella pneumoniae Pseudomonas aeruginosa Procedures Date of Service Date of Service: 04/28/24 Assessment & Plan Assessment and plan (1) ÓSCAR (acute kidney injury): Status: Acute Plan ÓSCAR due to tubular injury due to Vanco Peak Cr 1.8 Currently at 1 point non oliguric Expect recovery Hold Vanco and other nephrotoxins Keep I > O Hypokalemia Replace p.o. p.r.n. Time Spent With Patient Time: Total time managing care of this patient today ____ minutes. Progress Note: Quality Stroke Does the patient have a stroke diagnosis?: No
--- NOTE | 2024-04-28 10:29 | P.DS_ITS ---
DS: Providers Provider Date of Service: 04/28/24 Date of admission: 04/21/24 16:44 Date of discharge: 04/28/24 Primary care physician: Curt Brewster MD Consults: 04/21/24 16:41 Consult to General Surgery Routine Consulting Provider: [facility] Reason for consultation: Abscess , Sepsis 04/21/24 17:05 Consult to Infectious Diseases Routine Consulting Provider: [facility] Reason for consultation: L4 fracture, abscess. concern for OM ? 04/22/24 22:21 Consult to Wound Care Routine Reason for consultation: Follow abscess to R buttock 04/25/24 07:38 Consult to Nephrology Routine Consulting Provider: [facility] Reason for consultation: ÓSCAR, vanco tox DS: Diagnosis Discharge Diagnosis (1) ÓSCAR (acute kidney injury): Status: Acute DS: Summary Hospital Course Hospital Course: from initial hpi: 73 years old male with a PMH significant for?dementia, myasthenia gravis chronically on prednisone 5mg, COPD chronically on 2-3L NC, CAD, and HLD who presents to the ED from SNF with?right buttock abscess that has failed outpatient therapy. The patient was admitted to the hospital for evaluation of similar problem in early February 2024. The patient was not able to provide history or complaints. he is not aware of the abscess situation. denies No chest pain, palpitations, SOB, nausea, vomiting, diarrhea or urinary symptoms. The Abscess was drained in ED. CT scan concerning for possbile bone involvement. Started on Vancomycin and Zosyn. hospital course: Patient was admitted for sepsis secondary to right buttock cellulitis and abscess due to Proteus complicated by lactic acidosis. Underwent drainage of abscess in the ER, blood culture negative, was seen by General surgery who removed packing on 04/25/24, was seen by infectious disease who recommended p.o. doxycycline to be completed 05/08/2024. Sepsis resolved. For chronic Arroyo found to have colonization with Klebsiella and Pseudomonas, was seen by infectio us disease who recommended no treatment. For myasthenia gravis was continued on prednisone. For presumed orthostatic hypotension was continued on midodrine. For mood disorder was continued on sertraline, for hyperlipidemia was continue statin. For chronic hypoxic respiratory failure due to COPD remained at baseline O2. Course was then complicated by acute kidney injury due to vancomycin toxicity. Vancomycin was discontinued, creatinine plateaued around 1.7 was seen by Nephrology, will follow up outpatient with labs in about 1 week. Time Attestation Discharge Coordination Time (in mins): 33 Quality: Safe Use of Opioids Does Pt have an Active Cancer Diagnosis on the Problem List?: No Quality: Stroke Does the patient have a stroke diagnosis?: No Physical Exam Vital Signs: Vital Signs: Last Vital Signs Temp 97.9 F 04/28/24 07:07 Pulse 68 04/28/24 07:07 Resp 18 04/28/24 07:07 BP 112/70 04/28/24 07:07 Pulse Ox 97 04/28/24 07:07 O2 Del Method Nasal Cannula 04/28/24 07:07 O2 Flow Rate 2 04/28/24 07:07 BMI result Body Mass Index 22.5 Comfortable Neck supple no JVD. Lungs entry equal no rales. Heart S1-S2 heard no gallop or rub. Abdomen soft nontender. Neuro alert awake oriented. No asterixis. Extremities no edema. DS: Data Data Completed and Pending Completed studies during hospitalization [Text1]: Procedures Drainage of Right Buttock, Open Approach (02/21/23) Insertion of Infusion Device into Right Basilic Vein, Percutaneous Approach (11/16/22) Insertion of Infusion Device into Right Brachial Vein, Percutaneous Approach (06/01/22) Labs on day of discharge: Laboratory Results - last 24 hr 04/28/24 06:43 Hold Purple Top SEE NOTE Sodium 144 Potassium 3.7 Chloride 110 H Carbon Dioxide 26 Anion Gap 12 BUN 19 H Creatinine 1.70 H Estim Creat Clear Calc 43.5 Estimated GFR 40 Random Glucose 98 Calcium 8.3 L Discharge Plan Discharge Anticipated Discharge Date/Time: 04/28/24 10:27 Patient Disposition: Xfer LTC Discharge Diagnosis: abscess, óscar Referrals: Cely Tucker [Outside] - 1 Day (RESUMPTION OF LTC) Curt Brewster MD [Primary Care Provider] - 1 Week Discharge Medications: New doxycycline monohydrate 100 mg Capsule 100 mg PO Q12H 10 Days Qty: 0 0RF Continued bisacodyl 10 mg Suppository 10 mg [place] DAILY PRN (Reason: Constipation) Rx Instructions: if milk of magnesia not effective Fleet Enema 19-7 gram/118 mL Enema 118 ml [place] DAILY PRN (Reason: Constipation) Rx Instructions: when dulcolax suppository not effective acetaminophen 325 mg Tablet 650 mg PO Q4H PRN (Reason: Fever Or Pain) magnesium hydroxide [Milk of Magnesia] 400 mg/5 mL Suspension 30 ml PO DAILY PRN (Reason: Constipation) Rx Instructions: for no bm in 3 days atorvastatin 10 mg tablet 1 tab PO BEDTIME@2000 sertraline 100 mg tablet 1 tab PO DAILY@0800 Rx Instructions: take with 50 mg for 150 mg total dose prednisone 5 mg tablet 1 tab PO DAILY gabapentin 300 mg capsule 1 cap PO BID omeprazole 20 mg capsule,delayed release(DR/EC) 1 cap PO DAILY@0630 sertraline 50 mg tablet 25 mg PO DAILY@0800 Rx Instructions: take with 100 mg for total dose of 150 mg multivitamin Tablet 1 tab PO DAILY melatonin 3 mg Tablet 3 mg PO BEDTIME@2000 cyanocobalamin (vitamin B-12) 1,000 mcg Capsule 500 mcg PO DAILY@0800 miconazole nitrate 2 % Aerosol Powder 1 spray TOPICAL BID Artificial Tears([id number]) 1-0.2-0.2 % Drops 1 drp OPHTHALMIC (EYE) BID midodrine 5 mg Tablet 5 mg PO TID Rx Instructions: do not give last dose of day after 6PM or within 4 hrs of bedtime guaifenesin 400 mg Tablet 400 mg PO BID aspirin 81 mg Tablet,Chewable 81 mg PO DAILY nystatin 100,000 unit/gram Powder 1 appl TOPICAL BID topiramate 15 mg Capsule, Sprinkle 15 mg PO DAILY@2000 Discharge Orders: Discharge Order (Routine); Ordered 04/28/24 Ordered By: Robert Hoover Diet: Advance to usual diet Activity on Discharge: As tolerated Stand Alone Forms: Patient Portal Discharge page Print Language: Tamazight Care Plan Goals: Recovery Health Concerns: Abscess, acute kidney injury Plan of Treatment: Doxycycline until 05/08/2024, continue dressing changes, follow up labs in about 1 week Assessment: See above
[2024-04-28] MEDS: Artificial Tears 15 ML DROPS 1 DROP EYE-BOTH (13:15)
== END 2024-04-28 13:30 | DRG 872 ==
LOC: HO.ED 14:35 → HO.EDOVER 16:56 → HO.IMC 04-22 19:19
PROVIDERS: Family Medicine; Internal Medicine; Registered Nurse Emergency; Admitting Provider Student in an Organized Health Care Education/Training Program; Emergency Provider Emergency Medicine Emergency Medical Services; PCP Internal Medicine; Visit Provider Internal Medicine
DX: A41.9 Sepsis, unspecified organism (principal); L02.31 Cutaneous abscess of buttock; L03.317 Cellulitis of buttock; N17.9 Acute kidney failure, unspecified; E87.20 Acidosis, unspecified; F03.90 Unspecified dementia, unspecified severity, without behavioral disturbance, psychotic disturbance, mood disturbance, and anxiety; Z66 Do not resuscitate; I25.10 Atherosclerotic heart disease of native coronary artery without angina pectoris; I95.1 Orthostatic hypotension; E78.5 Hyperlipidemia, unspecified; B96.4 Proteus (mirabilis) (morganii) as the cause of diseases classified elsewhere; E87.6 Hypokalemia; T36.8X5A Adverse effect of other systemic antibiotics, initial encounter; J44.9 Chronic obstructive pulmonary disease, unspecified; G70.00 Myasthenia gravis without (acute) exacerbation; Z87.891 Personal history of nicotine dependence; Z96.0 Presence of urogenital implants; Z99.81 Dependence on supplemental oxygen; Z86.14 Personal history of Methicillin resistant Staphylococcus aureus infection; Z79.52 Long term (current) use of systemic steroids; Z79.82 Long term (current) use of aspirin; Z79.899 Other long term (current) drug therapy
CPT/HCPCS: 36415; 72192; 80048; 80053; 80202; 81001; 82565; 83605; 84132; 85025; 85027; 85610; 85652; 86140; 87040; 87070; 87077; 87086; 87088; 87186; 87205; 99285; C1758; J1644; J1720; J2543; J3370; J3371; J7120

== ENCOUNTER → 2024-04-21 12:10 | Outpatient (BNV) | payer MEDICARE, MEDICAID, SELFPAY | PROVIDERS: Emergency Provider Emergency Medicine Emergency Medical Services; PCP Internal Medicine; Visit Provider Radiology Diagnostic Radiology | DX: L02.31 Cutaneous abscess of buttock (principal) | CPT/HCPCS: 72192 ==

== ENCOUNTER → 2024-04-21 16:44 | Outpatient (BNV) | payer MEDICARE, MEDICAID, SELFPAY | PROVIDERS: Admitting Provider Student in an Organized Health Care Education/Training Program; Emergency Provider Emergency Medicine Emergency Medical Services; PCP Internal Medicine; Visit Provider Student in an Organized Health Care Education/Training Program | DX: L02.31 Cutaneous abscess of buttock (principal); A41.9 Sepsis, unspecified organism | CPT/HCPCS: 99232 ==

== ENCOUNTER → 2024-04-21 16:44 | Outpatient (BNV) | payer MEDICARE, MEDICAID, SELFPAY | PROVIDERS: Admitting Provider Student in an Organized Health Care Education/Training Program; Emergency Provider Emergency Medicine Emergency Medical Services; PCP Internal Medicine; Visit Provider Internal Medicine Hypertension Specialist | DX: N17.9 Acute kidney failure, unspecified (principal) | CPT/HCPCS: 99223; 99232 ==

== ENCOUNTER → 2024-04-21 16:44 | Outpatient (BNV) | payer MEDICARE, MEDICAID, SELFPAY | PROVIDERS: Admitting Provider Student in an Organized Health Care Education/Training Program; Emergency Provider Emergency Medicine Emergency Medical Services; PCP Internal Medicine; Visit Provider Internal Medicine | DX: L02.31 Cutaneous abscess of buttock (principal); A41.9 Sepsis, unspecified organism | CPT/HCPCS: 99222 ==

== ENCOUNTER 2024-06-04 08:30 | Outpatient (AMB) | payer MEDICARE, MEDICAID, SELFPAY ==
--- NOTE | 2024-06-04 08:33 | A.OFFVIS_ITS ---
Vital Signs 06/04/24 08:42 Comment Pt in stretcher Intake Visit Reasons: Abscess Intake Note: This patient presents for wound check for abscess right buttock. Pt c/o; pt is here with his son, he is on a stretcher, wound check right buttock. Precipitator Required: No Accompanied by: Son Allergies bacitracin [From Neosporin ([id number])] Allergy (Verified 06/04/24 08:41) Unknown iodine Allergy (Verified 06/04/24 08:41) Unknown neomycin [From Neosporin ([id number]-[id number])] Allergy (Verified 06/04/24 08:41) Unknown polymyxin B [From Neosporin ([id number])] Allergy (Verified 06/04/24 08:41) Unknown Medication List - Last Reconciled 06/04/24 by Prosper Lopez MD acetaminophen 650 mg PO Q4H PRN aspirin 81 mg PO DAILY atorvastatin 1 tab PO BEDTIME@2000 bisacodyl 10 mg IN DAILY PRN cyanocobalamin (vitamin B-12) 500 mcg PO DAILY@0800 doxycycline monohydrate 100 mg PO Q12H 10 days gabapentin 1 cap PO BID guaifenesin 400 mg PO BID magnesium hydroxide (Milk of Magnesia) 30 mL PO DAILY PRN melatonin 3 mg PO BEDTIME@2000 miconazole nitrate 2% 1 spray topical BID midodrine 5 mg PO TID multivitamin 1 tab PO DAILY nystatin 1 appl topical BID omeprazole 1 cap PO DAILY@0630 peg [id number]-khbjwwqvnlal-nntdysxu 1-0.2-0.2 % (Artificial Tears ([id number])) 1 drp ophthalmic (eye) BID prednisone 1 tab PO DAILY sertraline 25 mg PO DAILY@0800 sertraline 1 tab PO DAILY@0800 sodium phosphates 19-7 gram/118 mL (Fleet Enema) 118 mL IN DAILY PRN topiramate 15 mg PO DAILY@2000 HPI HPI Abscess: Details: 73-year-old male with multiple medical problems including dementia, COPD, sent by the [facility] because of a nonhealing wound on the right buttock. The referral notes state that he has this wound with deep undermining and tunneling on the right buttock. There has no obvious infection. The patient has dementia and does not offer much with regards to his history. His son was with him during the visit. [facility] Medical History (Updated 06/04/24 @ 09:00 by Prosper Lopez MD) Chronic wound Abscess of right buttock Acute on chronic urinary retention COPD (chronic obstructive pulmonary disease) Compression fx, lumbar spine Myasthenia gravis Dementia High cholesterol Constipation GERD (gastroesophageal reflux disease) Depression BPH (benign prostatic hyperplasia) Compression fx, lumbar spine Compression fx, thoracic spine Myasthenia gravis Urinary retention Dementia Surgical History H/O thymectomy Social History Household Members: Other Household Members Other:: pt from [facility] Housing: Prison Housing Other:: [facility] Do you presently have visiting nurse or other home services: Yes (Pt lives at [facility]) Alcohol intake: never Patient Tobacco Use Status: Former Tobacco user Advance Directives Date on File: 07/17/21 service: No Current occupational status: retired and disabled Review of Systems Const Unobtainable due to mental status Physical Exam Const Other: Has some verbal output General: comfortable and no acute distress Resp Effort & Inspection: normal respiratory effort Back/Spine/Pelvis Other: Right buttock with note of an open wound, about 1 cm in diameter, with significant undermining and tunneling into the deep subcutaneous layer, no cellulitis, no pus, no ongoing chronic infection Assessment & Plan Assessment & Plan (1) Chronic wound: Code(s): T14.8XXA - Other injury of unspecified body region, initial encounter Category: Medical Plan: He has this chronic wound on the right buttock as described above with significant undermining and tunneling. This does not appear to be infected. This is likely from a previous abscess I have changed his dressings including the packing. I would recommend continuing the same wound care with daily loose packing changes. Offloading on this area would be helpful as well He does not require any surgical intervention. He can follow up in the office on a p.r.n. basis. The plan was discussed with the son as well. Coding Level of Care Code New Pt Level 3 (59389) Diagnoses Chronic wound T14.8XXA
--- OUTSIDE RECORDS SUMMARY | 2024-06-04 09:03 | XMS_ITS | Encounter Summary ---
Author Organization [facility] Address [address] [place] [address] Care Team Providers Care Mash Filter Operator Name Role Phone Trav Verdugo MD Primary Care Provider [phone] Encounter Details Date Type Department Care Team (Late st Contact Info) Description 05/06/2024 Lab Requisition [facility] - Main Lab [address] [place] [address] Trav Verdugo MD [address] [place] [address] Essential (primary) hypertension Social History Tobacco Use Types Packs/Day Years Used Date Smoking Tobacco: Never Assessed Sex and Gender Information Value Date Recorded Sex Assigned at Not on file Legal Sex Male 9:27 PM EST Gender Identity Not on file Sexual Orientation Not on file documented as of this encounter Plan of Treatment Not on file documented as of this encounter Procedures Procedure Name Priority Date/Time Associated Diagnosis Comments COMPLETE BLOOD COUNT Routine 05/06/2024 6:44 AM EST Essential (primary) hypertension BASIC METABOLIC PANEL Routine 05/06/2024 6:44 AM EST Essential (primary) hypertension documented in this encounter Results * (ABNORMAL) Basic metabolic panel (05/06/2024 6:44 AM EST) Sodium 142 133 - 145 mmol/L LAB CHEMISTRY METHOD 05/06/2024 1:38 PM EST [facility] Potassium 4.3 3.5 - 5.5 mmol/L LAB CHEMISTRY METHOD 05/06/2024 1:38 PM EST [facility] Comment:Hemolysis present Chloride 109 96 - 110 mmol/L LAB CHEMISTRY METHOD 05/06/2024 1:38 PM [facility] CO2 23 21 - 32 mmol/L LAB CHEMISTRY METHOD 05/06/2024 1:38 PM [facility] Anion Gap 10 3 - 11 LAB CHEMISTRY METHOD 05/06/2024 1:38 PM [facility] Glucose 72 70 - 100 mg/dL LAB CHEMISTRY METHOD 05/06/2024 1:38 PM [facility] BUN 38(H) 5 - 25 mg/dL LAB CHEMISTRY METHOD 05/06/2024 1:38 PM [facility] Comment:Results verified by repeat testing Creatinine 1.90(H) 0.70 - 1.30 mg/dL LAB CHEMISTRY METHOD 05/06/2024 1:38 PM [facility] Comment:Results verified by repeat testing eGFR 37(L) >=60 mL/min/1. 73m2 LAB CHEMISTRY METHOD 05/06/2024 1:38 PM [facility] Comment:Calculation based on the??Chronic Kidney Disease Epidemiology Collaboration (CKD-EPI) equation refit??without adjustment for race. BUN/Creatinine Ratio 20.0 LAB CHEMISTRY METHOD 05/06/2024 1:38 PM [facility] Calcium 8.8 8.5 - 10.5 mg/dL LAB CHEMISTRY METHOD 05/06/2024 1:38 PM [facility] Blood Venous blood specimen / Unknown Venipuncture / Unknown 05/06/2024 6:44 AM EST 05/06/2024 11:31 AM EST us Trav Verdugo MD LAB BLOOD ORDERABLES Final Resul t [facility] [address] [place] [address], * (ABNORMAL) Complete blood count (05/06/2024 6:44 AM EST) WBC 8.3 4.8 - 10.8 K/mcL LAB HEMETOLOGY METHOD 05/06/2024 12:58 PM [facility] RBC 3.10(L) 4.50 - 5.50 M/mcL LAB HEMETOLOGY METHOD 05/06/2024 12:58 PM [facility] Hemoglobin 9.4(L) 13.5 - 17.5 g/dL LAB HEMETOLOGY METHOD 05/06/2024 12:58 PM [facility] Hematocrit 29.7(L) 42.0 - 54.0 % LAB HEMETOLOGY METHOD 05/06/2024 12:58 PM [facility] MCV 97.4 79.0 - 98.0 FL LAB HEMETOLOGY METHOD 05/06/2024 12:58 PM [facility] MCH 30.8 27.0 - 32.0 pcg LAB HEMETOLOGY METHOD 05/06/2024 12:58 PM [facility] MCHC 31.6(L) 32.0 - 37.0 g/dL LAB HEMETOLOGY METHOD 05/06/2024 12:58 PM [facility] RDW 14.0 11.0 - 15.0 % LAB HEMETOLOGY METHOD 05/06/2024 12:58 PM [facility] Platelets 349 130 - 400 K/mcL LAB HEMETOLOGY METHOD 05/06/2024 12:58 PM [facility] MPV 11.7(H) 7.0 - 11.0 FL LAB HEMETOLOGY METHOD 05/06/2024 12:58 PM [facility] NRBC 0.0 <1.0 % LAB HEMETOLOGY METHOD 05/06/2024 12:58 PM [facility] NRBC Absolute 0.00 <0.10 K/mcL LAB HEMETOLOGY METHOD 05/06/2024 12:58 PM [facility] Blood Venous blood specimen / Unknown Venipuncture / Unknown 05/06/2024 6:44 AM EST 05/06/2024 11:31 AM EST Trav Verdugo MD LAB BLOOD ORDERABLES Final Resul t [facility] [address] [place] [address], documented in this encounter Visit Diagnoses Diagnosis Essential (primary) hypertension Unspecified essential hypertension documented in this encounter Care Teams Mash Filter Operator Relationship Specialty Start Date End Date Trav Verdugo MD [address] [place] [address] [address] [place] [address] PCP - General Geriatric Medicine 04/03/24 documented as of this encounter
--- OUTSIDE RECORDS SUMMARY | 2024-06-04 09:03 | XMS_ITS | Data Portability ---
Author Organization [place] [facility], [employer] Address [address] , [address] [place] [address] Care Team Providers Care Log Turner Name Role Phone JANEE GREEN Referring Provider [phone] JANEE GREEN Primary Care Provider Assessment Encounter Date Assessment [...] currently playing in his axial back pain. [email or web address] Not available 03/28/2017 13:55:21 04/11/2017 04/11/2017 The [...] his pain for the next 4-7 hours. Not available 04/11/2017 16:44:49 Plan of Treatment Reminders Order Date Submit Date Provider Last Modified By Organization Details Last Modified Time Details Appointments None recorded . Lab None recorded . Referral None recorded . Procedures facet joint injectio n, lumbar (PROC) 018 03/28/19 18 [facility], [address] [place], [address], 8 15:08:48 Surgeries None recorded . Imaging [...] Joint Injection Under Fluoroscopy completed Florian Perkins [facility] 04/11/2017 16:56:46 Imaging Results Imaging Date [...] Updated DateTime 03/28/2017 185.42 cm 25.1 kg/m2 40195.55 g Marina Posey [facility] 03/28/2017 13:34:46 Date Recorded Body height Body mass index (BMI) Body weight Heart rate Systolic blood pressure Diastolic blood pressure Provider Name and Address Organization Details Last Updated DateTime 8 185.42 cm 25.1 kg/m2 88651.5 5 g 82 /min 168 mm[Hg] 150 mm[Hg] Yvonne Serrano [facility] 8 15:31:47 Social History None recorded. Functional Status None recorded. Mental Status None recorded. Family History Nothing Reported. Medical History No medical history recorded. Past Encounters Encounter ID Performer Location Encounter Start Date Encounter Closed Date Diagnosis/Indication Diagnosis SNOMED-CT Code Diagnosis ICD10 Code Diagnosis Note [id number] Florian Perkins [address] [address] [place] [address] 03/28/2017 13:16:36 03/29/2017 08:58:34 Lumbosacral spondylosis without myelopathy 04685989 M47.817 Degenerati on of lumbar intervertebral disc 45771382 M51.36 [id number] Florian Perkins [address] [address] [place] [address] 04/11/2017 14:31:49 04/11/2017 16:59:22 Lumbosacral spondylosis without myelopathy 24340178 M47.817 Degenerati on of lumbar intervertebral disc 29811555 M51.36 Health Concerns Section Related Observation LastModified by Organization Detai ls LastModified Time None Recorded Concern Status LastModified by Organization Details LastModified Time None Recorded Advance Directives Directive None Recorded Payers Encounter Date Sequence Insurance Name Policy Number Policy [place] Covered Member ID [place] Member ID Guarantor Name 03/28/2017 1 [employer] (MEDICARE REPLACEMENT/A DVANTAGE - PPO) Adolfo Rizzo [id number] Adolfo Rizzo 04/11/2017 1 [employer] (MEDICARE REPLACEMENT/A DVANTAGE - PPO) Adolfo Rizzo [id number] Adolfo Rizzo Notes Date Note Type Note [...] his upper or lower extremities. Florian londono [facility] 03/28/2017 13:56:10
--- OUTSIDE RECORDS SUMMARY | 2024-06-04 09:03 | XMS_ITS | Data Portability ---
Author Organization [place] l[place], [id number]_ER_StVWomen Address [address] [place] [address] Care Team Providers Care Engineering Manager Name Role Phone MANI HAMMOND Safety Security Officer [phone] NELLIE HANNAH Neurologist MALENA GARDNER Pain Management STEFAN OLMOS Ict Educator ANJEL HAWLEY Spinal Orthopedic Surgeon PARADISE STOKES Primary Care Provider [phone] Assessment Encounter Date Assessment Date Assessment LastModified by Organization Details LastModified Time 02/06/2019 02/06/2019 ? memory - may need SLUMS or Mini-cog at future visit (if not previously addressed) [email or web address] Not available 02/09/2019 12:14:34 02/09/2019 02/09/2019 improving [...] Modified Time Details Appointments None recorded. Lab CBC w/ auto diff 2020 021 [facility], [address], [address], [place], [address], 12:40:18 CMP, serum or plasma 2020 021 [facility], [address], [address], [place], [address], 12:40:15 TSH, serum or plasma 2020 021 [facility] ([facility]), [address] [place], [address], 12:40:19 erythrocyt e sedimentat ion rate by westergren method 2020 021 [facility] ([facility]), [address] [facility], [place], [address], 1 12:40:17 CMP, serum or plasma 2019 020 [facility], [address], [address], [place], [address], 0 15:20:45 lipid panel, serum 2019 020 [email or web address], [address], [address], [place], [address], 0 15:21:30 lipid panel, serum 2019 021 [facility] ([email or web address]), [address] [facility], [place], [address], 1 05:04:20 CMP, serum or plasma 2019 021 [facility] ([facility]), [address] [facility], [place], [address], 1 05:04:20 HbA1c (hemoglobi n A1c), blood 2019 020 [facility], [address], [address], [place], [address], 0 15:22:52 PSA, serum or plasma 2019 021 [facility] ([facility]), [address] [facility], [place], [address], 1 05:04:23 Referral referral to smoking quit line 2019 020 [facility], [address] [facility], [place], [address], 0 15:45:14 Procedures None recorded. Surgeries None recorded. Imaging None recorded. Medication Orders simvastati n 40 mg tablet [address] [facility] [facility], [address], [place], [address], 1 12:40:43 ibuprofen 600 mg tablet 2019 020 [facility], [address], [place], [address], 0 14:55:28 Bactrim DS 800 mg-160 mg tablet 2018 019 [facility] [id number], [address] [place] [address], [address], 0 14:28:47 Patient TargetsNo targets recorded. Patient Instructions Encounter Date Encounter Id Patient Instructions Last Modified By Organization Details Last Modified Time 12/02/2019 [id number] high cholesterol : care instructions [email or web address] Not available 12/02/2019 14:54:31 lung cancer screening eligibility assessment* [email or web address] Not available 12/25/2019 08:43:55 smoking cessatio n counseling, greater than 3 minutes up to 10 minutes* Not available 12/02/2019 15:04:49 10/10/2020 [id number] fatigue: care instructions [email or web address] Not available 10/10/2020 [...] irabl e >/=24 0 MG/DL Not Available [email or web address] [address], [place], [address], 02/05/2019 01:00:44 02/04/2002/05/2019 lipid panel , serum triglyceride s 162 mg/dL 15-150 high Cherri l <150 MG/DL Borde rline -High 150-1 99 MG/DL High 200-4 99 MG/DL Very High >500 MG/DL Not Available [facility] [address] [facility], [place], [address], 02/05/2019 01:00:44 02/04/20 19 02/05/2019 lipid panel , serum HDL-choleste rol 59 mg/dL >40 normal Not Available [facility] [address] [facility], [place], [address], 02/05/2019 01:00:44 02/04/20 19 02/05/2019 lipid panel [...] disea se. Not Available [facility] [place] [facility] [address] [facility], [place], [address], 02/05/2019 01:00:44 02/04/2002/05/2019 lipid panel , serum chol/HDLC ratio 3.75 (calc ) <4.98 normal Not Available [facility], [place], [address], 02/05/2019 01:00:44 02/04/2002/05/2019 CMP, serum or plasm a sodium 143 mmol/ L 136-14 5 normal Not Available [facility] [place] [facility] [address] [facility], [place], [address], 02/05/2019 01:00:45 02/04/2002/05/2019 CMP, serum or plasm a potassium 4.2 mmol/ L 3.5-5. 5 normal Not Available [facility] [address] [facility] [address] [facility], [place], [address], 02/05/2019 01:00:45 02/04/2002/05/2019 CMP, serum or plasm a chloride 105 mmol/ L 98-110 normal Not Available [facility] [place] [id number] [facility], [place], [address], 02/05/2019 01:00:45 02/04/2002/05/2019 CMP, serum or plasm a carbon dioxide 24 mmol/ L 20-29 normal Not Available [facility] [place] [address] [facility] [address] [facility], [place], [address], 02/05/2019 01:00:45 02/04/2002/05/2019 CMP, serum or plasm a glucose 99 mg/dL 65-99 normal Not Available [facility] [place] [address] [facility], [place], [address], 02/05/2019 01:00:45 02/04/2002/05/2019 CMP, serum or plasm a urea nitrogen (BUN) 15 mg/dL 8-26 normal Not Available [facility] [address] [facility], [place], [address], 02/05/2019 01:00:45 02/04/2002/05/2019 CMP, serum or plasm a creatinine 0.91 mg/dL 0.80-1 .50 normal Not Available [facility] [address] [facility] [address] [facility], [place], [address], 02/05/2019 01:00:45 02/04/2002/05/2019 CMP, serum or plasm [...] used to estim ate GFR. Not Available [email or web address] [address], [place], [address], 02/05/2019 01:00:45 02/04/2002/05/2019 CMP, serum or plasm [...] used to estim ate GFR. Not Available [email or web address] [address], [place], [address], 02/05/2019 01:00:45 02/04/2002/05/2019 CMP, serum or plasm a calcium 9.4 mg/dL 8.4-10 .5 normal Not Available [email or web address] [address] [facility] [address], [place], [address], 02/05/2019 01:00:45 02/04/2002/05/2019 CMP, serum or plasm a bilirubin, total 1.1 mg/dL 0.1-1. 2 normal Not Available [email or web address] [address], [place], [address], 02/05/2019 01:00:45 02/04/2002/05/2019 CMP, serum or plasm a protein, total 6.5 g/dL 6.0-8. 3 normal Not Available [email or web address] [address], [place], [address], 02/05/2019 01:00:45 02/04/2002/05/2019 CMP, serum or plasm a albumin 4.0 gm/dL 3.5-5. 0 normal Not Available [facility] [employer] [address] [facility] [address] [facility], [place], [address], 02/05/2019 01:00:45 02/04/2002/05/2019 CMP, serum or plasm a alkaline phosphatase 73 U/L 38-126 normal Not Available [employer] [facility] [address] [facility] [address] [facility], [place], [address], 02/05/2019 01:00:45 02/04/2002/05/2019 CMP, serum or plasm a alanine transaminase 18 U/L 11-58 normal Not Available [employer] [facility], [place], [address], 02/05/2019 01:00:45 02/04/2002/05/2019 CMP, serum or plasm a aspartate transaminase 20 U/L 17-59 normal Not Available [facility] [employer] [facility] [address] [facility] [address] [facility], [place], [address], 02/05/2019 01:00:45 02/04/2002/05/2019 CMP, serum or plasm a comment If resul t of rando m gluco se is > or = 200 or if resul t of fasti ng gluco se is > 125 confi rm Diabe aida Melli tus diagn osis with secon d gluco se on a diffe ren day. Not Available [email or web address] [place] [facility] [address] [facility], [place], [address], 02/05/2019 01:00:45 02/04/20 19 02/05/2019 PSA, serum or plasm a PSA 1.02 NG/mL 0.00-4 .00 normal Not Available [email or web address] [address] [facility], [place], [address], 02/05/2019 01:00:46 02/04/20 19 02/05/2019 PSA, serum or plasm a comment The FDA requi res that the metho d used for the PSA assay be repor paola to the physi chet. Value s obtai sanjay with diffe rent assay metho ds shoul d not be used inter ferrer eably . Our lab uses the Advia Quemulusa ur XPT metho d which is appro [...] of >= 0.2 ng/mL . Not Available [email or web address] [address] [facility] [address], [place], [address], 02/05/2019 01:00:46 02/04/20 19 02/03/2019 hemog lobin A1C, finge rstic k HbA1C 6.1 Not Available [facility] - In Office Orders (For Internal Use Only) [address] [place], [address], 02/03/2019 13:24:54 02/04/2002/03/2019 hemog lobin A1C, finge rstic k Control positi ve Not Available [facility] - In Office Orders (For Internal Use Only) [address] [place], [address], 02/03/2019 13:24:54 12/02/19 20 12/03/2019 lipid panel , serum cholesterol, total 231 mg/dL high Cherri l Range 125-2 00 MG/DL Adis able <200 MG/DL Borde rline 200-2 39 MG/DL Undes irabl e >/=24 0 MG/DL Not Available [facility] [place] [facility] [address] [facility], [place], [address], 12/03/2019 21:43:42 12/02/1912/03/2019 lipid panel , serum triglyceride s 307 mg/dL 15-150 high Cherri l <150 MG/DL Borde rline -High 150-1 99 MG/DL High 200-4 99 MG/DL Very High >500 MG/DL Not Available [facility] [place] [facility] [address] [facility] [address] [facility], [place], [address], 12/03/2019 21:43:42 12/02/1912/03/2019 lipid panel , serum HDL-choleste rol 49 mg/dL >40 normal Not Available [facility] [place] [facility] [address] [facility], [place], [address], 12/03/2019 21:43:42 12/02/1912/03/2019 lipid panel , serum [...] disea se. Not Available [facility] [place] [facility] [address] [facility], [place], [address], 12/03/2019 21:43:42 12/02/1912/03/2019 lipid panel , serum chol/HDLC ratio 4.71 (calc ) <4.98 normal Not Available [facility] [place] [facility] [address] [facility] [employer] [facility], [place], [address], 12/03/2019 21:43:42 12/02/1912/03/2019 CMP, serum or plasm a sodium 137 mmol/ L 136-14 5 normal Not Available [facility] [place] [address] [facility], [place], [address], 12/03/2019 21:43:43 12/02/1912/03/2019 CMP, serum or plasm a potassium 3.9 mmol/ L 3.5-5. 5 normal Not Available [facility] [place] [address] [facility] [address] [facility], [place], [address], 12/03/2019 21:43:43 12/02/1912/03/2019 CMP, serum or plasm a chloride 103 mmol/ L 98-110 normal Not Available [facility] [address] [facility], [place], [address], 12/03/2019 21:43:43 12/02/1912/03/2019 CMP, serum or plasm a carbon dioxide 20 mmol/ L 20-29 normal Not Available [facility] [place] [address] [facility], [place], [address], 12/03/2019 21:43:43 12/02/1912/03/2019 CMP, serum or plasm a glucose 121 mg/dL 65-99 high Not Available [facility] [place] [address] [facility], [place], [address], 12/03/2019 21:43:43 12/02/1912/03/2019 CMP, serum or plasm a urea nitrogen (BUN) 14 mg/dL 8-26 normal Not Available [facility] [place] [address] [facility], [place], [address], 12/03/2019 21:43:43 12/02/1912/03/2019 CMP, serum or plasm a creatinine 1.00 mg/dL 0.80-1 .50 normal Not Available [facility] [place] [address] [employer] [facility], [place], [address], 12/03/2019 21:43:43 12/02/1912/03/2019 CMP, serum or plasm [...] used to estim ate GFR. Not Available [facility] [address], [place], [address], 12/03/2019 21:43:43 12/02/1912/03/2019 CMP, serum or plasm [...] ate GFR. Not Available [facility] [address], [place], [address], 12/03/2019 21:43:43 12/02/1912/03/2019 CMP, serum or plasm a calcium 9.4 mg/dL 8.4-10 .5 normal Not Available [facility] [address], [place], [address], 12/03/2019 21:43:43 12/02/1912/03/2019 CMP, serum or plasm a bilirubin, total 0.9 mg/dL 0.1-1. 2 normal Not Available [facility] [employer] [facility] [address] [facility] [address] [facility], [place], [address], 12/03/2019 21:43:43 12/02/1912/03/2019 CMP, serum or plasm a protein, total 6.3 g/dL 6.0-8. 3 normal Not Available [facility] [employer] [facility], [place], [address], 12/03/2019 21:43:43 12/02/1912/03/2019 CMP, serum or plasm a albumin 3.8 gm/dL 3.5-5. 0 normal Not Available [facility] [employer] [place] [address] [facility], [place], [address], 12/03/2019 21:43:43 12/02/1912/03/2019 CMP, serum or plasm a alkaline phosphatase 67 U/L 38-126 normal Not Available [employer] [place] [address] [facility], [place], [address], 12/03/2019 21:43:43 12/02/1912/03/2019 CMP, serum or plasm a alanine transaminase 11 U/L 11-58 normal Not Available [facility] [employer] [facility], [place], [address], 12/03/2019 21:43:43 12/02/1912/03/2019 CMP, serum or plasm a aspartate transaminase 15 U/L 17-59 low Not Available [employer] [facility] [address] [facility], [place], [address], 12/03/2019 21:43:43 12/02/1912/03/2019 CMP, serum or plasm a comment If resul t of rando m gluco se is > or = 200 or if resul t of fasti ng gluco se is > 125 confi rm Diabe aida Melli tus diagn osis with secon d gluco se on a diffe t day. Not Available [facility] [place] [facility] [address] [facility] [address], [place], [address], 12/03/2019 21:43:43 12/02/19 20 12/03/2019 HbA1c (hemo [...] resul ts may occur . Not Available [facility] [place] [facility] [address] [facility] [address], [place], [address], 12/03/2019 21:43:44 12/02/19 20 12/03/2019 HbA1c (hemo globi n A1c), blood estimated average glucose (EAG) 123 mg/dL _(mary c) Not Available [facility] [place] [facility] [address] [facility] [address], [place], [address], 12/03/2019 21:43:44 10/11/19 21 10/12/2020 COMPR EHENS ALONSO METAB OLIC PANEL glucose 107 mg/dL 65-99 high Fasti ng refer ence inter chelsey For someo ne witho ut known diabe aida, a gluco se value betwe en 100 and 125 mg/dL is consi stent with predi abete s and shoul d be confi rmed with a follo w-up test. Not Available [facility] [place] [facility] [address] [facility] [place], [address], 10/12/2020 12:40:15 10/11/19 21 10/12/2020 COMPR EHENS ALONSO METAB OLIC PANEL urea nitrogen (BUN) 8 mg/dL 7-25 normal Not Available [facility] [address] [facility] [place], [address], 10/12/2020 12:40:15 10/11/19 21 10/12/2020 COMPR EHENS ALONSO METAB OLIC PANEL creatinine 0.87 mg/dL 0.70-1 .25 normal For patie nts >49 years of age, the refer ence limit for Creat inine is appro ximat mateo 13% highe r for peopl e ident ified as Afric an-Am tim n. Not Available [facility] [address] [place], [address], 10/12/2020 12:40:15 10/11/19 21 10/12/2020 COMPR EHENS ALONSO METAB OLIC PANEL eGFR non-afr. emirati 88 mL/mi n/1.7 3m2 > or = 60 normal Not Available [facility] [address] [facility] [place], [address], 10/12/2020 12:40:15 10/11/19 21 10/12/2020 COMPR EHENS ALONSO METAB OLIC PANEL eGFR 102 mL/mi n/1.7 3m2 > or = 60 normal Not Available [facility] [address] [facility] [place], [address], 10/12/2020 12:40:15 10/11/19 21 10/12/2020 COMPR EHENS ALONSO METAB OLIC PANEL BUN/creatini ne ratio NOT APPLIC ABLE (calc ) 6-22 Not Available [facility] [address] [facility] [place], [address], 10/12/2020 12:40:15 10/11/19 21 10/12/2020 COMPR EHENS ALONSO METAB OLIC PANEL sodium 134 mmol/ L 135-14 6 low Not Available [facility] [address] [place], [address], 10/12/2020 12:40:15 10/11/19 21 10/12/2020 COMPR EHENS ALONSO METAB OLIC PANEL potassium 3.3 mmol/ L 3.5-5. 3 low Not Available [facility] [address] [place], [address], 10/12/2020 12:40:15 10/11/19 21 10/12/2020 COMPR EHENS ALONSO METAB OLIC PANEL chloride 96 mmol/ L 98-110 low Not Available [facility] [address] [place], [address], 10/12/2020 12:40:15 10/11/19 21 10/12/2020 COMPR EHENS ALONSO METAB OLIC PANEL carbon dioxide 29 mmol/ L 20-32 normal Not Available [facility] [address] [place], [address], 10/12/2020 12:40:15 10/11/19 21 10/12/2020 COMPR EHENS ALONSO METAB OLIC PANEL calcium 8.8 mg/dL 8.6-10 .3 normal Not Available [facility] [address] [place], [address], 10/12/2020 12:40:15 10/11/19 21 10/12/2020 COMPR EHENS ALONSO METAB OLIC PANEL protein, total 6.0 g/dL 6.1-8. 1 low Not Available [facility] [address] [place], [address], 10/12/2020 12:40:15 10/11/19 21 10/12/2020 COMPR EHENS ALONSO METAB OLIC PANEL albumin 2.9 g/dL 3.6-5. 1 low Not Available [email or web address] [facility] [address] [facility] [place], [address], 10/12/2020 12:40:15 10/11/19 21 10/12/2020 COMPR EHENS ALONSO METAB OLIC PANEL globulin 3.1 g/dL_ (calc ) 1.9-3. 7 normal Not Available [facility] [address] [facility] [place], [address], 10/12/2020 12:40:15 10/11/19 21 10/12/2020 COMPR EHENS ALONSO METAB OLIC PANEL albumin/glob ulin ratio 0.9 (calc ) 1.0-2. 5 low Not Available [email or web address] [facility] [address] [facility] [place], [address], 10/12/2020 12:40:15 10/11/19 21 10/12/2020 COMPR EHENS ALONSO METAB OLIC PANEL bilirubin, total 0.7 mg/dL 0.2-1. 2 normal Not Available [facility] [employer] [facility] [address] [facility] [place], [address], 10/12/2020 12:40:15 10/11/19 21 10/12/2020 COMPR EHENS ALONSO METAB OLIC PANEL alkaline phosphatase 99 U/L 35-144 normal Not Available [facility] [employer] [facility] [address] [facility] [place], [address], 10/12/2020 12:40:15 10/11/19 21 10/12/2020 COMPR EHENS ALONSO METAB OLIC PANEL AST 19 U/L 10-35 normal Not Available [facility] [employer] [facility] [address] [place], [address], 10/12/2020 12:40:15 10/11/19 21 10/12/2020 COMPR EHENS ALONSO METAB OLIC PANEL ALT 13 U/L 9-46 normal Not Available [email or web address] [facility] [address] [facility] [place], [address], 10/12/2020 12:40:15 10/11/19 21 10/12/2020 SED RATE BY MODIF IED WESTE RGREN sed rate by modified westergren TNP TEST NOT PERFO RMED The speci men excee ds stabi lity for the test reque sted. Not Available [facility] [place] [facility] [address] [facility] [place], [address], 10/12/2020 12:40:17 10/11/19 21 10/12/2020 CBC (INCL UDES DIFF/ PLT) white blood cell count 10.6 thous and/u L 3.8-10 .8 normal Not Available [facility] [address] [facility] [place], [address], 10/12/2020 12:40:18 10/11/19 21 10/12/2020 CBC (INCL UDES DIFF/ PLT) red blood cell count 3.84 antwon on/uL 4.20-5 .80 low Not Available [facility] [address] [facility] [place], [address], 10/12/2020 12:40:18 10/11/19 21 10/12/2020 CBC (INCL UDES DIFF/ PLT) hemoglobin 12.1 g/dL 13.2-1 7.1 low Not Available [facility] [address] [facility] [place], [address], 10/12/2020 12:40:18 10/11/19 21 10/12/2020 CBC (INCL UDES DIFF/ PLT) hematocrit 37.4 % 38.5-5 0.0 low Not Available [facility] [address] [facility] [place], [address], 10/12/2020 12:40:18 10/11/19 21 10/12/2020 CBC (INCL UDES DIFF/ PLT) MCV 97.4 fL 80.0-1 00.0 normal Not Available [facility] [address] [place], [address], 10/12/2020 12:40:18 10/11/19 21 10/12/2020 CBC (INCL UDES DIFF/ PLT) MCH 31.5 pg 27.0-3 3.0 normal Not Available [facility] [address] [place], [address], 10/12/2020 12:40:18 10/11/1910/12/2020 CBC (INCL UDES DIFF/ PLT) MCHC 32.4 g/dL 32.0-3 6.0 normal Not Available [facility] [address] [place], [address], 10/12/2020 12:40:18 10/11/19 21 10/12/2020 CBC (INCL UDES DIFF/ PLT) RDW 12.1 % 11.0-1 5.0 normal Not Available [facility] [address] [place], [address], 10/12/2020 12:40:18 10/11/19 21 10/12/2020 CBC (INCL UDES DIFF/ PLT) platelet count 521 thous and/u L 140-40 0 high Not Available [facility] [address] [place], [address], 10/12/2020 12:40:18 10/11/1910/12/2020 CBC (INCL UDES DIFF/ PLT) MPV 12.6 fL 7.5-12 .5 high Not Available [facility] [address] [place], [address], 10/12/2020 12:40:18 10/11/19 21 10/12/2020 CBC (INCL UDES DIFF/ PLT) absolute neutrophils 7250 cells /uL 1500-7 800 normal Not Available [facility] [address], [place], [address], 10/12/2020 12:40:18 10/11/19 21 10/12/2020 CBC (INCL UDES DIFF/ PLT) absolute lymphocytes 1791 cells /uL 850-39 00 normal Not Available [facility] [address], [place], [address], 10/12/2020 12:40:18 10/11/19 21 10/12/2020 CBC (INCL UDES DIFF/ PLT) absolute monocytes 1410 cells /uL 200-95 0 high Not Available [facility] [address], [place], [address], 10/12/2020 12:40:18 10/11/19 21 10/12/2020 CBC (INCL UDES DIFF/ PLT) absolute eosinophils 74 cells /uL 15-500 normal Not Available [facility] [address], [place], [address], 10/12/2020 12:40:18 10/11/19 21 10/12/2020 CBC (INCL UDES DIFF/ PLT) absolute basophils 74 cells /uL 0-200 normal Not Available [facility] [address], [place], [address], 10/12/2020 12:40:18 10/11/19 21 10/12/2020 CBC (INCL UDES DIFF/ PLT) neutrophils 68.4 % normal Not Available [facility] [address], [place], [address], 10/12/2020 12:40:18 10/11/19 21 10/12/2020 CBC (INCL UDES DIFF/ PLT) lymphocytes 16.9 % normal Not Available [facility] [address], [place], [address], 10/12/2020 12:40:18 10/11/19 21 10/12/2020 CBC (INCL UDES DIFF/ PLT) monocytes 13.3 % normal Not Available [facility] [address] [place], [address], 10/12/2020 12:40:18 10/11/19 21 10/12/2020 CBC (INCL UDES DIFF/ PLT) eosinophils 0.7 % normal Not Available [facility] [address] [place], [address], 10/12/2020 12:40:18 10/11/19 21 10/12/2020 CBC (INCL UDES DIFF/ PLT) basophils 0.7 % normal Not Available [facility] [address] [place], [address], 10/12/2020 12:40:18 10/11/19 21 10/12/2020 TSH W/REF ROSE TO FT4 TSH w/reflex to FT4 2.07 mIU/L 0.40-4 .50 normal Not Available [facility] [address] [place], [address], 10/12/2020 12:40:19 05/29/19 20 04/27/2019 Perip heral Arter y Disea se (PAD) Self Asses sment Tool* No observ ation record ed. akaissar Not Available 2019 12:23:45 11/16/1911/15/2020 MRI, lumba r spine , w/o contr ast [facility] EXAMIN ATION: MRI LUMBAR SPINE WO/C - ACC #: [id number] CPT: 69992 Mod: RIS Order: [id number] ([facility]) (0029) HIS Order: [id number] CBR-RA D [id number] STARTE D: Nov 15 2020 5:42AM COMPLE [...] anteri or displa cement . 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 Hetero geneou [...] loss of disc T2 signal . 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 Normal [...] ALBERTO BARRY Admitt ing Dr: BRISA ROBERTS, [place] Primar y Care: GURWINDER GREEN onak Doctor (s): CHARLENE CRUZ SIGNED BY: HAIDER WILLIS M.D.Au g 2020 10:36A M lower extrem ity weakne ss with back pain^ ssebo [facility] [address], [place], [address], 11/15/2020 22:00:16 02/03/20 21 01/31/2021 XR, lumbo sacra l spine , [address] [facility] EXAMIN ATION: SPINE LUMBAR 2 OR 3 VIEWS - ACC #: [id number] CPT: 31338 Mod: RIS Order: [id number] (IXR) (0081) HIS Order: [id number] BR3-RA D [id number] STARTE D: Jan 31 2021 3:20PM COMPLE [...] [email or web address] [facility] [address], [place], [address], 02/07/2021 09:53:32 Result Notes None recorded. 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 7 15:37:14 Dyspnea 913288019 Active 2012 Nereyda Green MD [address], [address], [facility] [place], [address] , [place] 7 15:37:13 Dysuria 33993057 Completed 201310/08/2018 Paradise Stokes MD [address], [address], [facility] [place], [address] , [place] 9 14:22:37 Influenz a vaccine needed 39607717782 06 Completed 201204/12/2017 Sharonda Harrison RN null, [place] - [facility] 8 09:27:00 Hyperlip idemia 42263844 Active 2011 Nereyda Green MD [address], [address], [facility] [place], [address] , [place] [facility] 7 15:37:15 Sciatica 05003686 Completed 201210/08/2018 Paradise Stokes MD [address], [address], [place], [address] , [place] 9 14:22:10 Dysphagi a 80823360 Completed 201210/08/2018 Paradise Stokes MD [address], [address], [place], [address] , [place] 9 14:22:22 Myasthen ia gravis 31243368 Active 2011 julia Nereyda Green MD [address], [address], [place], [address] , [place] 7 15:37:13 Malaise and fatigue 061603263 Completed 201211/27/2013 LAST ASSESSED : 27 MAY 2012 9:52AM; TYPE: CHRONIC Not Available [facility] 4 14:15:41 Urinary tract infectio us disease 03747074 Completed 201310/08/2018 Paradise Stokes MD [address], [address], [place], [address] , [place] - [place] 9 14:22:41 Idiopath ic peripher al neuropat hy 06890993 Completed 201110/08/2018 Paradise Stokes MD [address], [address], [place], [address] , [place] 9 14:22:12 Malaise and fatigue 279280794 Active 2011 Nereyda Green MD [address], [address], [place], [address] , [place] 7 15:37:14 Inflamed seborrhe ic keratosi s 797112123 Completed 201210/08/2018 Paradise Stokes MD [address], [address], [place], [address] , [place] 9 14:22:29 Acute bronchit is 12192941 Completed 201204/12/2017 Sharonda Harrison RN null, [place] 8 09:26:56 Depressi ve disorder 26156848 Active Nereyda Green MD [address], [address], [place], [address] , [place] 7 15:37:13 Night sweats 43443805 Completed 10/08/2018 Paradise Stokes MD [address], [address], [place], [address] , [place] 9 14:22:26 Neck pain 61307569 Active Nereyda Green MD [address], [address], [place], [address] , [place] 7 15:37:15 Blood glucose outside referenc e range 098863531 Completed 201410/08/2018 Paradise Stokes MD [address], [address], [place], [address] , [place] 9 14:21:53 Epigastr ic pain 54380746 Active Nereyda Green MD [address], [address], [place], [address] , [place] 7 15:37:15 Orophary ngeal dysphagi a 52524248 Active Nereyda Green MD [address], [address], [place], [address] , [place] 7 15:37:13 Candidia sis of the esophagu s 43873102 Completed 02/28/2016 Paradise Stokes MD [address], [address], [place], [address] , [place] 9 14:22:04 Hiatal hernia 97905037 Active Nereyda Green MD [address], [address], [place], [address] , [place] 7 15:37:14 Hemorrho ids 85339057 Active Nereyda Green MD [address], [address], [place], [address] , [place] 7 15:37:13 Full thicknes s rotator cuff tear 097901029 Completed 10/08/2018 Paradise Stokes MD [address], [address], [place], [address] , [place] 9 14:22:01 Injury of shoulder region 986670392 Completed 10/08/2018 Paradise Stokes MD [address], [address], [place], [address] , [place] 9 14:21:47 Mood disorder 60929914 Completed 10/08/2018 Paradise Stokes MD [address], [address], [place], [address] , [place] 9 14:22:34 Partial thicknes s rotator cuff tear 442287963 Active Nereyda Green MD [address], [address], [place], [address] , [place] 7 15:37:14 Anxiety disorder 382375866 Completed 10/08/2018 Paradise Stokes MD [address], [address], [place], [address] , [place] 9 14:21:57 Spinal stenosis 34348911 Active Nereyda Green MD [address], [address], [place], [address] , [place] 7 15:37:14 Spontane ous ecchymos is 206701197 Active Nereyda Green MD [address], [address], [place], [address] , [place] 7 15:37:14 Bursitis 16761477 Active Nereyda Green MD [address], [address], [place], [address] , [place] [facility] 7 15:37:13 Immuniza tion due 480074256 Completed 04/12/2017 Sharonda Harrison RN null, [facility] 8 09:27:06 Leukocyt osis 632466934 Completed 10/08/2018 Paradise Stokes MD [address], [address], [facility] [place], [address] , [facility] 9 14:21:44 Candidia sis of the esophagu s 77467655 Completed 201510/08/2018 Paradise Stokes MD [address], [address], [place], [address] , [facility] 9 14:22:04 Shoulder pain 86187225 Completed 201510/08/2018 Paradise Stokes MD [address], [address], [facility] [place], [address] , [facility] 9 14:22:32 Congenit al pericard ial cyst 274546628 Active 2017 Syd Kidd MD [address], [address], [facility] [place], [address] , [facility] 8 14:20:19 Long-ter m drug therapy Completed 201710/08/2018 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 ...May need nocturna l oximetry to look at readings when sleeping at night. Sharonda Harrison RN null, [place] [facility] 8 16:03:45 Injury of forearm 655219257 Completed 201710/08/2018 worse at night but wonders if this is carpal tunnel - please discuss during next OV annual exam Paradise Stokes MD [address], [address], [place], [address] , [place] 9 14:21:49 Prediabe aida 465261696 Active 2018 Lisa Frausto NP [address], [address], [place], [address] , [place] 9 13:43:54 Poor short-te rm memory 051332743 Active 2018 Lisa Frausto NP [address], [address], [place], [address] , [place] 9 13:43:57 Lumbosac ral spondylo sis without myelopat hy 30990180 Active 2017 Lisa Frausto NP [address], [address], [place], [address] , [place] 9 16:46:32 Degenera tion of lumbar interver tebral disc 70338650 Active 2017 Lisa Frausto NP [address], [address], [facility] [place], [address] , [place] 9 16:46:47 Memory finding 057818550 Active 2018 Mr. Rizzo repeat himself several times during our AWV - at least 3 times on the same topic. He did OK on the MiniCog / (which is the same as last year). He continue to have some disorien tation at times. 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 Sharonda Harrison RN null, [place] [facility] [place] 9 14:28:15 Problem Notes None recorded. Procedures Surgical History Date Name Laterality Status Provider Name and Address Organization Details Recorded Time 6 Colonoscopy completed Sharonda Harrison RN [facility] 02/05/2018 15:42:59 6 EGD/Endoscopy completed Sharonda Harrison RN [place] [facility] 02/05/2018 15:44:14 1 Colonoscopy completed Stacy Arce [place] [facility] 09/28/2020 13:42:53 2 Other completed Sharonda Harrison RN [place] [facility] 02/05/2018 15:45:08 Other completed Sharonda Harrison RN [facility] 02/05/2018 15:47:35 repair of retina for retinal detachment completed Paradise Stokes MD [address] [place] [address], [address], [place], [address], [place] [facility] 10/10/2020 12:52:50 Imaging Results Imaging Date Name Status LastModified by Organiz ation Details LastModified Time 04/27/2019 Peripheral Artery Disease (PAD) Self Assessment Tool* completed akaissar Information not available 06/01/2019 12:23:45 11/15/2020 MRI, lumbar spine, w/o contrast completed [email or web address] [facility] [address], [address], 11/15/2020 22:00:16 01/31/2021 XR, lumbosacral spine, 2 or 3 view completed [email or web address] [facility] [address], [address], 02/07/2021 09:53:32 Procedure Notes None recorded. Medical Equipment None Reported. Allergies Allergen ID Allergen Name Allergen Category Reaction Reaction Severity Criticality Documentation Date Start Date Code Code System Note Provider Name and Address Organization Details Recorded Time 2512244 iodine medicatio n hives Not available Not available 02/09/2019 5933 RxNorm Sheba Lopez LPN [place] [facility] 9 15:03:30 817529 bacitraci n / neomycin / polymyxin B medicatio n Not available Not available Not available 11/27/20132011 33929 9 RxNorm REACT ION: ITCHI NG; COMME NT: ACTIV E; Not Available [facility] 4 18:28:03 353456 Iodinated contrast media (substanc e) medicatio n Not available Not available Not available 11/27/20132011 19754 2004 SNOMED REACT ION: SWELL ING; COMME NT: ACTIV E; Not Available [facility] 4 18:28:03 Medications Name Sig Start Date [...] mass index (BMI) Body weight Heart rate Oxygen saturation Oxygen saturation in Arterial blood by Pulse oximetry Systolic blood pressure Diastolic blood pressure Provider Name and Address Organization Details Last Updated DateTime 9 179.07 cm 25.5 kg/m2 97606.9 9 g 68 /min 98 % 98 % 125 mm[Hg] 60 mm[Hg] Jessica Michael CCMA [place] [facility] 9 15:21:02 Date Recorded Body height Body mass index (BMI) Body weight Heart rate Respiratory rate Systolic blood pressure Diastolic blood pressure Provider Name and Address Organization Details Last Updated DateTime 9 179.07 cm 25.6 kg/m2 96196.9 4 g 104 /min 24 /min 118 mm[Hg] 72 mm[Hg] Sheba Lopez DAY PORTER [place] [facility] 9 15:06:15 Date Recorded Body height Body mass index (BMI) Body weight Heart rate Body temperature Respiratory rate Systolic blood pressure Diastolic blood pressure Provider Name and Address Organization Details Last Updated DateTime 0 179.07 cm 25 kg/m2 68983.1 3 g 80 /min 99.1 [degF] 20 /min 122 mm[Hg] 60 mm[Hg] Sheba Lopez LPN [facility] 0 14:32:15 Date Recorded Body height Systolic blood pressure Diastolic blood pressure Provider Name and Address Organization Details Last Updated DateTime 10/10/2020 179.07 cm 80 mm[Hg] 56 mm[Hg] Stacy Arce [facility] 10/10/2020 12:45:01 Date Recorded Body height Body mass index (BMI) Body weight Heart rate Respiratory rate Systolic blood pressure Diastolic blood pressure Provider Name and Address Organization Details Last Updated DateTime 1 185.42 cm 21.1 kg/m2 92866.7 8 g 93 /min 14 /min 114 mm[Hg] 71 mm[Hg] Delmibetzy Moraniloabdirizak wolf [facility] 1 15:39:33 Social History Question Answer Notes LastModified by Organization Details LastModified Time Tobacco Smoking Status Current Every Day Smoker Nereyda londono [facility] 12/24/2013 10:57:14 Do You Have An Advance [...] 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 No My Sister, Then My Son Mustapha [...] Much Tobacco Do You Smoke? 1.5 PPD [email or web address] Information not available 02/14/2016 General Stress Level [...] high-dose, trivalent, PF 8 completed Not Available [facility] 04/12/2019 04:09:19 pneumococcal polysaccharide PPV23 0 completed Nicole londono, [place] 12/02/2019 15:29:22 Influenza, split virus, trivalent, preservative 5 completed Not Available [facility] 04/11/2019 04:07:20 Tdap 5 completed Not Available [facility] 04/11/2019 02:17:33 Influenza, split virus, trivalent, preservative 5 completed Katie Chauhan-Best null, [place] [facility] 08/01/2017 13:05:36 Td (adult), 2 Lf tetanus toxoid, preservative free, adsorbed 3 completed Katie Chauhan-Best null, [place] [facility] 08/01/2017 13:05:36 Novel Ywcajlqsh-D4B2-99, all formulations 9 completed Katie Chauhan-Best null, [place] [facility] 08/01/2017 13:05:36 Influenza, split virus, trivalent, preservative 3 completed Katie Chauhan-Best null, [place] [facility] 08/01/2017 13:05:36 Influenza, high-dose, trivalent, PF 9 completed Stacy Claude null, [place] [facility] 09/28/2020 13:42:30 Influenza, split virus, trivalent, preservative 4 completed Not Available [facility] 04/11/2019 02:12:45 COVID-19 vaccine, vector-nr, rS-ChAdOx1, PF, 0.5 mL 1 completed Stacy Claude null, [place] [facility] 09/28/2020 13:42:30 Influenza, split virus, quadrivalent, preservative 6 completed Stacy Claude null, [place] [facility] 09/28/2020 13:42:29 pneumococcal polysaccharide PPV23 5 completed Stacy Claude null, [place] [facility] 09/28/2020 13:42:30 Pneumococcal conjugate PCV 13 7 completed Not Available [facility] 04/12/2019 02:47:46 Influenza, split virus, trivalent, preservative 3 completed Katie Chauhan-Best null, [place] [facility] 08/01/2017 13:05:36 Influenza, adjuvanted, trivalent, PF 7 completed Not Available [facility] 04/11/2019 04:14:38 Past Encounters Encounter ID Performer Location Encounter Start Date Encounter Closed Date Diagnosis/Indication Diagnosis SNOMED-CT Code Diagnosis ICD10 Code Diagnosis Note [id number] Irene Coulter zFNL[facility] [address] [place] [address] 12/24/2013 10:06:55 12/24/2013 11:21:20 Testicular finding 559210740 Active or passive immunization 648332225 [id number] [facility] [address] [place] [address] 07/14/2014 15:30:37 07/14/2014 16:12:54 Hyperlipidemia 00731957 nonfasting Depressive disorder 37753735 Night sweats 16558795 oc c check labs, if contintue, do xray still smoking Neck pain 98283367 consi douglas pt [id number] Danielle Teixeira Miguel [facility] [address] [place] [address] 10/12/2014 15:05:33 10/12/2014 16:03:55 Night sweats 33333143 REL TO BOWEL MOVEMENTS BUT BETTER CONSIDER CT IF CONT Myasthenia gravis 64722215 STABLE Hyperlipidemia 43033876 nonfasting doing well [id number] [facility] [address] [place] [address] 10/08/2011 00:00:00 [id number] [facility] [address], [address] [place] [address] 05/27/2012 00:00:00 [id number] [facility] [address], [address] [place] [address] 09/01/2012 00:00:00 [id number] [facility] [address] [place] [address] 09/17/2012 00:00:00 [id number] [facility] [address] [place] [address] 01/08/2013 00:00:00 [id number] [facility] [address] [place] [address] 06/16/2013 00:00:00 [id number] [facility] [address] [place] [address] 09/30/2013 00:00:00 [id number] Nereyda Green MD [facility] [address] [place] [address] 02/08/2015 09:31:44 02/08/2015 10:28:34 Myasthenia gravis 95374147 G70.00 Hyperlipidemia 79258282 E78.5 since leg weakness, cpk, trial off of simvs x 2-3 weeks., if it makes no difference , continue, if better off of simva, call me Depressive disorder 6975 9497 F32.9 ran out of sertraline , doing fine, try off for now Blood gluc ose outside reference range 240121169 R73.09 Viral screening 37273992 4 Z11.59 Administra tion of diphtheria, pertussis, and tetanus vaccine 610587199 Z23 Weakness o f distal arms and legs 003527076 M62.81 mainly legs, not arms [id number] Nereyda Green MD [facility] [address] [place] [address] 08/10/2015 09:57:37 08/10/2015 11:46:36 Skin lesion 12031920 L98.9 Hyperlipidemia 55725145 E78.5 Pain in ri ght lower limb 908485148 M79.604 Adult heal th examination 065562200 Z00.00 want s to change md, [facility] Abdominal pain 87865288 R10.9 urinary issues, epi Impaired g lucose tolerance 9660310 R73.02 watch sweets/car bs, consdier adding metformin, once abdo pain evaluated Depressive disorder 3548 9007 F32.9 had sertraline in past, has been told has been irritable, consider lexapro [id number] MD FARIDA Chadwick_[facility] [address] [place] [address] 08/18/2015 09:12:59 08/18/2015 13:08:08 Epigastric pain 96568296 R10.13 He is at risk of having gastritis/ PUD from daily prednisone /nsaids use. -- EGD now. Screening for malignant neoplasm of colon 704279548 Z12.11 colonoscop y due now. Oropharyng eal dysphagia 72320473 R13.12 likely from myasthenia [id number] MD FARIDA Chadwick[facility] [address] [place] [address] 09/19/2015 13:41:34 09/19/2015 15:10:11 Candidiasis of the esophagus 34377967 B37.81 hold celexa for diflucan. Hiatal hernia 38118858 K 44.9 Hemorrhoids 73351903 K64 .9 symptomati c. continue stool softener. [id number] James Sanchez MD [facility] [address] [place] [address] 10/27/2015 13:37:15 10/27/2015 15:45:59 Full thickness rotator cuff tear 374797756 M75.121 Injury of shoulder region 273694578 S49.81XA Mood disorder 15213105 F 39 [id number] James Sanchez MD [facility] [address] [place] [address] 11/29/2015 13:28:03 11/29/2015 14:27:38 Partial thickness rotator cuff tear 679721260 M75.101 Anxiety disorder 7148248 06 F41.9 Spinal stenosis 00884500 M48.00 [id number] James Sanchez MD [facility] [address] [place] [address] 01/25/2016 11:54:09 01/25/2016 14:35:31 Spontaneous ecchymosis 796312588 R23.3 right elbow Bursitis 94997167 M71.9 Immunization due 3174464 08 Z28.3 [id number] James Sanchez MD [facility] [address] [place] [address] 02/14/2016 08:48:17 02/14/2016 09:58:42 Olecranon bursitis 054550205 M70.21 right elbow Leukocytosis 238750443 D 72.829 need to recheck follow up [id number] James Sanchez MD [facility] [address] [place] [address] 02/28/2016 14:23:07 02/29/2016 07:17:35 Anxiety disorder 635335599 F41.9 Doing well with current dose of the SSRI. Candidiasi s of the esophagus 11122927 B37.81 hold celexa for diflucan. [id number] Nereyda Green MD [facility] [address] [place] [address] 10/09/2016 14:32:00 10/09/2016 15:48:31 Hyperlipidemia 24203224 E78.5 Low back pain 259227453 M54.5 Intention tremor 6202831 [address] hannah. x 6 months, started february, see dr hannah memory loss Poor short -term memory 487004028 R41.3 Depressive disorder 3548 9007 F32.9 had sertraline in past, has been told has been irritable, lexapro didn't work Screening for cancer 158 79605 Z12.9 Administra tion of pneumococcal vaccine 96915914 Z23 Dyspnea 618109663 R06.00 maybe with exertion, but cant do to back, [id number] Lisa Frausto NP [facility] [address] [place] [address] 12/18/2016 14:08:17 12/18/2016 15:20:03 Hyperlipidemia 48376841 E78.5 reports no myalgias on atorvastat in Low back pain 820929120 M54.5 pt reports he did not go to physical therapy. states that the more active he is, the more the discs are aggravated and complains of increased pain.pt reports he tried physical therapy in the past but symptoms worsened.janice holbrook with Dr. Peterson, pain and spine MD. rec pt make appointmen t to see spine doctor to discuss treatment plan. Intention tremor 5181635 6 G25.2 will send referral to new neurologis t. was advised to f/u with Dr. Hannah at last appointmen t. Poor short -term memory [id number] R41.3 will send referral to new neurologis t.[facility] ed pt to get head CT that was ordered by Dr. Green at last visitwill re-order todayadvis ed to f/u with neurology Depressive disorder 7728 9007 F32.9 reports depression improved since starting cymbalta in September. denies irritabili ty and mood changes.st ates he is not interested in counseling at this time. Screening for cancer 158 65895 Z12.9 pt reports he will be getting colonoscop y next month Incomplete emptying of urinary bladder 004709030 R39.14 pt previously evaluated on urology, started on afluzosin but did not see any improvemen t on medication and has not been taking Myasthenia gravis 038633 [address] Hannah is retiring and needs new neuro referral for myasthenia gravis Administra tion of influenza vaccine 30402796 Z23 get today in office. [id number] Lisa Frausto NP IND_[facility]_H IM_DOC [address] [place] [address] [facility] [address] 01/21/2017 16:32:19 01/21/2017 17:36:39 Tremor 52112657 R25.1 unchanged since last visit, rec f/u with neuro Poor short -term memory 564888433 R41.3 unchanged since last visit, rec f/u with neuro Myasthenia gravis 466072 04 G70.00 complains of worsening myasthenia gravis symptoms, will see Dr. Bravo in February, will call their office to see if pt can be seen sooner Insomnia 708079471 G47.0 0 reports getting a few hours at night as well as napping during the daywill try to decrease nicotine intake close to bedtimewil l try OTC melatonin [id number] Nereyda Green MD [facility] [address] [place] [address] 04/12/2017 10:09:40 04/12/2017 10:54:14 Hyperlipidemia 79264694 E78.5 Nicotine dependence 5629 4008 Z87.891 Low [...] d significan t weight loss). Myasthenia gravis 877364 04 G70.00 stavvel [id number] Syd Kidd MD IND_[facility]G_M OB_DOC [address] [place] [address] 06/03/2017 13:49:04 06/04/2017 09:29:10 Congenital pericardial cyst 807600980 Q24.8 conservati ve management [id number] Raji Garcia MD [facility] IM[facility]DOC [address] [place] [address] 08/01/2017 12:48:17 08/01/2017 13:27:31 Pain of right shoulder joint [id number] 3028362 M25.511 Since pain has been going on [...] at this time. Patient voiced understand ing. [id number] Jenifer Vick NP [facility] IM[facility]DOC [address] [place] [address] 09/19/2017 16:07:28 09/19/2017 16:47:54 Mixed anxiety and depressive disorder 935953628 F41.8 Symptoms c/w anxiety/de pressionCo ncerned about [...] social contactsGo to ER with suicidal ideation [id number] Nereyda Green MD [facility] IM[facility]DOC [address] [place] [address] 11/04/2017 15:38:45 11/04/2017 16:36:56 Anxiety 64196511 F41.9 much better on duloxetine Poor short -term memory 770483873 R41.[address] hannah. Hyperlipidemia 66103276 E78.5 [id number] Raji Garcia MD [facility] IM[facility] [address] [place] [address] 02/05/2018 15:09:41 02/06/2018 08:02:12 Adult health examination 315440268 Z00.00 Screening for malignant neoplasm of prostate 464762758 Z12.5 Long-term drug therapy 792612138 Z79.52 custodial prednisone therapy [id number] Lisa Frausto NP [facility] IM[facility]DOC [address] [place] [address] 04/21/2018 13:17:07 04/21/2018 14:26:32 Hyperlipidemia 33881160 E78.5 reports no myalgias on increased simvastati noccasiona lly forgets to take, usually taking approx 4x a weekpoor dietsedent aryHeart score this morning showed moderate plaque build up.rec start Asa 81 mg. 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 hannah. may need new referral as dr. charlton is retiring per pt reportrepo rts stable sxs Pain of left wrist 80193 12795 20572 M25.532 -left wrist pain x 1 year; no known injury; worse in PM, worse with flexion but hurts all of the time; worsening; denies swelling; pt is right hand dominant -saw ortho last year, had steroid injection apr and august 2017-will f/u with ortho (Dr. Cortney Rodas) if wanting another steroid injection Chronic low back pain 27 9491630 M54.5 -reports chronic low back pain; hx lumbosacra l spondylosi s w/o myelopathy and degenerati on of lumbar interverte bral disc-facet joint injections with Dr. Gardner 1 year ago-pt requesting chronic hydrocodon e for pain, reports that Dr. 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- requesting new painter drum referral, placed today Smoker 21364090 F17.200 has tried nicotine gum, chantix, patches, and cold turkeynoth ing has helpedsmok ing x 45 years, 1-1.[address] 03/2017, no signs of malignancy [id number] Syd Kidd MD IND_[facility]_M OB_DOC [address] [place] [address] 08/04/2018 16:24:00 08/06/2018 08:07:11 Prediabetes 531239106 R73.03 Poor short -term memory 002325785 R41.3 Hyperlipidemia 83991339 E78.5 Screening for malignant neoplasm of prostate 297307909 Z12.5 Congenital pericardial cyst 992507044 Q24.8 conservati ve management [id number] Paradise Stokes MD IND[facility] IM[facility]DOC [address] [place] [address] 10/08/2018 13:53:03 10/08/2018 14:29:06 Hyperglycemia 46447098 R73.9 Hyperlipidemia 47863655 E78.5 Tobacco user 649180692 Z 87.891 Nicotine dependence 5629 4008 Z87.891 Counseling to Prevent Tobacco Use Performed by: ack ____ ____ Minutes: _5___ Education performed: [x ] counseling regarding risks [ x] counseling regarding benefits of quitting [ x] medication s ____ [ ] patient agreed to come back for ___ additional sessions no[ ] patient was receptive to counseling /suggestio ns Long-term current use of steroid 984574275 Z79.52 Adult heal th examination 229015449 Z00.00 [id number] Paradise Stokes MD IND[facility] IM[facility]DOC [address] [place] [address] 02/03/2019 13:07:49 02/03/2019 16:35:37 Adult health examination 802967085 Z00.00 [id number] Madonna Naik MD IND[facility] IM_DOC [address] [place] [address] 02/06/2019 15:00:13 02/06/2019 16:37:33 Cellulitis of lower limb 334500349 L03.119 Unable to pack it but the opening of the wound is quite large, so it will probably not close up quickly.St art antibiotic s with MRSA coverage (although doesn't look typical for MRSA).RTc in 3d for follow up. Call sooner prn. [id number] Paraidse Stokes MD IND[facility] IM_DOC [address] [place] [address] 02/09/2019 14:55:29 02/09/2019 15:25:54 Furuncle 607347271 L02.92 [id number] Paradise Stokes MD [facility] [address] [place] [address] 12/02/2019 14:24:01 12/02/2019 14:56:34 Adult health examination 383032226 Z00.00 Administra tion of pneumococcal vaccine 73684139 Z23 Nicotine dependence 5629 4008 Z87.891 Low [...] abstinence , including the offer of Medicare-[facility] services, if applicable . The patient is asymptomat ic (no symptoms such as fever, chest pain, new shortness of breath, new or changing cough, coughing up blood, or unexplaine d significan t weight loss). Hyperlipidemia 00491744 E78.5 Hyperglycemia 55684500 R 73.9 Advance care planning 71 2415770 Z71.89 ? ? ?ACP - Patient voluntaril [...] ? Screening for malignant neoplasm of prostate 981345369 Z12.5 [id number] Paradise Stokes MD IND[facility]_H IM_DOC [address] [place] [address] 10/10/2020 12:34:20 10/10/2020 13:14:15 Muscle weakness 03633568 M62.81 Fatigue 12899169 R53.83 [id number] Cortney Sierra Bob [employer] IND_IND_N INT_OP_St [id number] [place]TY [place] [address] 01/31/2021 15:34:29 04/14/2021 16:11:52 Closed fracture lumbar vertebra, burst 759708218 S32.042D L4 burst fracture, L1 compressio n [...] (MEDICARE REPLACEMENT/A DVANTAGE - PPO) Adolfo Rizzo [id number] Adolfo Rizzo 02/09/2019 1 [employer] (MEDICARE REPLACEMENT/A DVANTAGE - PPO) Adolfo Rizzo [id number] Adolfo Rizzo 12/02/2019 1 [employer] (MEDICARE REPLACEMENT/A DVANTAGE - PPO) Adolfo Rizzo [id number] Adlofo Rizzo 10/10/2020 1 [employer] (MEDICARE REPLACEMENT/A DVANTAGE - PPO) Adolfo Velezgloria [id number] Adolfo Velezgloria 01/31/2021 1 [employer] (MEDICARE REPLACEMENT/A DVANTAGE - PPO) Adolfo Kenney So [id number] Adolfo Rizzo Notes Date Note Type Note Provider Name and Address Organization Details Recorded Time 9 text/html Pt presented with 1-2 wk h/o of a lesion on R inner thigh.No h/o trauma, no known bitesIt burst and a core came out todayNo fever, chills or other systemic symptoms *Pt kept repeating himself - retelling components of his history to the DC and myself, that he'd already told each of us. Madonna Naik MD [facility] [address] [place] [address], [address], [place], [address], [place] [facility] 02/09/2019 12:14:39 0 text/html Adult Male Wellness [...] tv dinners Paradise Stokes MD [address] [place] [address], [address], [place], [address], [place] - [place] [facility] 12/02/2019 14:55:34 1 text/html acute visit for disorieintationson [facility] issues [...] 2 days Paradise Stokes MD [address], [place], [address], [place] - [place] 10/10/2020 13:13:08 1 text/html Mr. Rizzo is [...] was obtained and reviewed by our complex claims account specialist cushion assembler (Dr. Bose) who decided for the patient [...] hospital discharge. Cortney Rojas NP [address], [place], [address], [place] - [place] [facility] 01/31/2021 16:04:57
--- OUTSIDE RECORDS SUMMARY | 2024-06-04 09:03 | XMS_ITS | Encounter Summary ---
Author Organization [facility] Address [address] [place] [address] Care Team Providers Care Appliance Adjuster Name Role Phone Trav Verdugo MD Primary Care Provider [phone] Encounter Details Date Type Department Care Team (Late st Contact Info) Description 05/06/2024 Lab Requisition [facility] - Main Lab [address] [facility] [place] [address] Social History Tobacco Use Types Packs/Day Years Used Date Smoking Tobacco: Never Assessed Sex and Gender Information Value Date Recorded Sex Assigned at Not on file Legal Sex Male 9:27 PM EST Gender Identity Not on file Sexual Orientation Not on file documented as of this encounter Plan of Treatment Not on file documented as of this encounter Visit Diagnoses Not on filedocumented in this encounter Care Teams Appliance Adjuster Relationship Specialty Start Date End Date Trav Verdugo MD [address] [facility] [address] [place], [place] [id number] PCP - General Geriatric Medicine 04/03/24 documented as of this encounter
--- OUTSIDE RECORDS SUMMARY | 2024-06-04 09:03 | XMS_ITS | Clinical Summary ---
Author Organization [address] [facility] Address [address] [place] [address] Phone Care Team Providers Care Compounding Technician Name Role Phone Trav Verdugo MD Primary Care Provider [phone] Encounters Date Type Department Care Team Description 05/06/[address] [facility] [address] [place] [id number] Trav Verdugo MD Essential (primary) hypertension 05/06/[address] [facility] [address] [place] [phone] 04/03/[address] [facility] [address] [place] [address] Trav Verdugo MD Chronic obstructive pulmonary disease, unspecified (CMS/HCC) 03/27/[address] [facility] [address] [place] [phone] Curt Brewster MD Chronic kidney disease, unspecified from Last 3 Months Social History Tobacco Use Types Packs/Day Years Used Date Smoking Tobacco: Never Assessed Sex and Gender Information Value Date Recorded Sex Assigned at Not on file Legal Sex Male 9:27 PM EST Gender Identity Not on file Sexual Orientation Not on file Plan of Treatment Health Maintenance Due Date Last Done Comments DTaP,Tdap,and Td Vaccines (1 - Tdap) 1969 Pneumococcal Vaccine: 50+ Years (1 of 2 - PCV) 1969 Zoster Vaccines (1 of 2) 2000 RSV Immunization Patients 60 + Years Old (1 - Risk 60-74 years 1-dose series) 2010 Abdominal Aortic Aneurysm (AAA) Screen 02/24/2022 Colorectal Cancer Screening: Colonoscopy 02/24/2022 Depression Screening 02/24/2022 Falls Risk Assessment 02/24/2022 Hepatitis C Screening 02/24/2022 Medicare Annual Wellness Visit 02/24/2022 Social Influencers of Health Screening 02/24/2022 COVID-19 Vaccine (1 2023-2 5 season) 2023 Influenza Vaccine (#1) 2023 Hypertension/CHF/CAD Annual BMP Blood Test 05/06/2025 05/06/2024, 04/03/2024, 03/30/2024 Cholesterol Screening (Lipid Panel) 03/30/2029 03/30/2024 HIB [...] patient's age to complete this topic Meningococcal B Vacine Aged Out No lo nger eligible based on patient's age to complete this topic RSV Immunization Patients Under 20 months Aged Out No longer eligible b ased on patient's age to complete this topic Varicella Vaccines Aged Out No longer eligible based on patient's age to complete this topic Procedures Procedure Name Priority Date/Time Associated Diagnosis Comments BASIC METABOLIC PANEL Routine 05/06/2024 6:44 AM EST Essential (primary) hypertension COMPLETE BLOOD COUNT Routine 05/06/2024 6:44 AM EST Essential (primary) hypertension BASIC METABOLIC PANEL Routine 04/03/2024 6:27 AM [...] Months Results * (ABNORMAL) Complete blood count (05/06/2024 6:44 AM EST) Only the most recent of3 resultswithin the time period is included. Pathologist [facility] WBC 8.3 4.8 - 10.8 K/mcL LAB HEMETOLOGY METHOD 05/06/2024 12:58 PM [facility] RBC 3.10(L) 4.50 - 5.50 M/mcL LAB HEMETOLOGY METHOD 05/06/2024 12:58 PM [facility] Hemoglobin 9.4(L) 13.5 - 17.5 g/dL LAB HEMETOLOGY METHOD 05/06/2024 12:58 PM [facility] Hematocrit 29.7(L) 42.0 - 54.0 % LAB HEMETOLOGY METHOD 05/06/2024 12:58 PM [facility] MCV 97.4 79.0 - 98.0 FL LAB HEMETOLOGY METHOD 05/06/2024 12:58 PM [facility] MCH 30.8 27.0 - 32.0 pcg LAB HEMETOLOGY METHOD 05/06/2024 12:58 PM EST [facility] MCHC 31.6(L) 32.0 - 37.0 g/dL LAB HEMETOLOGY METHOD 05/06/2024 12:58 PM [facility] RDW 14.0 11.0 - 15.0 % LAB HEMETOLOGY METHOD 05/06/2024 12:58 PM [facility] Platelets 349 130 - 400 K/mcL LAB HEMETOLOGY METHOD 05/06/2024 12:58 PM [facility] MPV 11.7(H) 7.0 - 11.0 FL LAB HEMETOLOGY METHOD 05/06/2024 12:58 PM [facility] NRBC 0.0 <1.0 % LAB HEMETOLOGY METHOD 05/06/2024 12:58 PM [facility] NRBC Absolute 0.00 <0.10 K/mcL LAB HEMETOLOGY METHOD 05/06/2024 12:58 PM [facility] Blood Venous blood specimen / Unknown Venipuncture / Unknown 05/06/2024 6:44 AM EST 05/06/2024 11:31 AM EST us Trav Verdugo MD LAB BLOOD ORDERABLES Final Resul t [facility] [address] [place] [address], * (ABNORMAL) Basic metabolic panel (05/06/2024 6:44 AM EST) Only the most recent of2 resultswithin the time period is included. Sodium 142 133 - 145 mmol/L LAB CHEMISTRY METHOD 05/06/2024 1:38 PM [facility] Potassium 4.3 3.5 - 5.5 mmol/L LAB CHEMISTRY METHOD 05/06/2024 1:38 PM [facility] Comment:Hemolysis present Chloride 109 96 - 110 mmol/L LAB CHEMISTRY METHOD 05/06/2024 1:38 PM [facility] CO2 23 21 - 32 mmol/L LAB CHEMISTRY METHOD 05/06/2024 1:38 PM [facility] Anion Gap 10 3 - 11 LAB CHEMISTRY METHOD 05/06/2024 1:38 PM [facility] Glucose 72 70 - 100 mg/dL LAB CHEMISTRY METHOD 05/06/2024 1:38 PM [facility] BUN 38(H) 5 - 25 mg/dL LAB CHEMISTRY METHOD 05/06/2024 1:38 PM [facility] Comment:Results verified by repeat testing Creatinine 1.90(H) 0.70 - 1.30 mg/dL LAB CHEMISTRY METHOD 05/06/2024 1:38 PM [facility] Comment:Results verified by repeat testing eGFR 37(L) >=60 mL/min/1. 73m2 LAB CHEMISTRY METHOD 05/06/2024 1:38 PM [facility] Comment:Calculation based on the??Chronic Kidney Disease Epidemiology Collaboration (CKD-EPI) equation refit??without adjustment for race. BUN/Creatinine Ratio 20.0 LAB CHEMISTRY METHOD 05/06/2024 1:38 PM [facility] Calcium 8.8 8.5 - 10.5 mg/dL LAB CHEMISTRY METHOD 05/06/2024 1:38 PM [facility] Blood Venous blood specimen / Unknown Venipuncture / Unknown 05/06/2024 6:44 AM EST 05/06/2024 11:31 AM EST us Trav Verdugo MD LAB BLOOD ORDERABLES Final Resul t [facility] [address] [place] [address], [place] [phone] * Lipid panel with reflex to direct LDL (03/30/2024 5:38 AM EST) Cholesterol 147 0 - 200 mg/dL LAB CHEMISTRY METHOD 03/30/2024 12:53 PM [facility] Triglycerides 85 0 - 150 mg/dL LAB CHEMISTRY METHOD 03/30/2024 12:53 PM [facility] HDL 51 >=40 mg/dL LAB CHEMISTRY METHOD 03/30/2024 12:53 PM [facility] LDL Calculated 79 0 - 100 mg/dL LAB CHEMISTRY METHOD 03/30/2024 12:53 PM [facility] VLDL Cholesterol Fazal 17 mg/dL LAB CHEMISTRY METHOD 03/30/2024 12:53 PM [facility] Non HDL Chol. (LDL+VLDL) 96 <145 mg/dL LAB CHEMISTRY METHOD 03/30/2024 12:53 PM [facility] Chol/HDL Ratio 2.9 0.0 - 4.4 LAB CHEMISTRY METHOD 03/30/2024 12:53 PM [facility] Blood Venous blood specimen / Unknown Venipuncture / Unknown 03/30/2024 5:38 AM EST 03/30/2024 11:09 AM EST us Curt Brewster MD LAB BLOOD ORDERABLES Final Res ult [facility] [address] [place] [address], * Thyroid stimulating hormone (03/30/2024 5:38 AM EST) TSH 0.64 0.40 - 4.00 mcIU/mL LAB CHEMISTRY METHOD 03/30/2024 12:33 PM [facility] Blood Venous blood specimen / Unknown Venipuncture / Unknown 03/30/2024 5:38 AM EST 03/30/2024 11:09 AM EST us Curt Brewster MD LAB BLOOD ORDERABLES Final Res ult Performing Organization Address [facility]/ZIP Co de Phone Number [facility] [address] [place] [address], [place] [phone] * Hemoglobin A1c (03/30/2024 5:38 AM EST) [facility] Hemoglobin A1C 5.6 <6.5 % LAB CHEMISTRY METHOD 03/30/2024 1:51 PM EST [facility] Mean Bld Glu Estim. 114 mg/dL LAB CHEMISTRY METHOD 03/30/2024 1:51 PM EST [facility] Blood Venous blood specimen / Unknown Venipuncture / Unknown 03/30/2024 5:38 AM EST 03/30/2024 11:09 AM EST Curt Brewster MD LAB BLOOD ORDERABLES Final Res ult Performing Organization Address [facility] de Phone Number [facility] [address] [place] [address], [place] [phone] * (ABNORMAL) Vitamin B12 (03/30/2024 5:38 AM EST) [facility] Vitamin B-12 1,196(H) 250 - 900 pcg/mL LAB CHEMISTRY METHOD 03/30/2024 12:53 PM EST [facility] Blood Venous blood specimen / Unknown Venipuncture / Unknown 03/30/2024 5:38 AM EST 03/30/2024 11:09 AM EST Curt Brewster MD LAB BLOOD ORDERABLES Final Res ult Performing Organization Address [facility]/ZIP Co de Phone Number [facility] [address] [place] [address], [place] [phone] * (ABNORMAL) Comprehensive metabolic panel (03/30/2024 5:38 AM EST) [facility] Sodium 139 133 - 145 mmol/L LAB CHEMISTRY METHOD 03/30/2024 12:53 PM [facility] Potassium 3.7 3.5 - 5.5 mmol/L LAB CHEMISTRY METHOD 03/30/2024 12:53 PM [facility] Chloride 105 96 - 110 mmol/L LAB CHEMISTRY METHOD 03/30/2024 12:53 PM [facility] CO2 25 21 - 32 mmol/L LAB CHEMISTRY METHOD 03/30/2024 12:53 PM [facility] Anion Gap 9 3 - 11 LAB CHEMISTRY METHOD 03/30/2024 12:53 PM [facility] Glucose 77 70 - 100 mg/dL LAB CHEMISTRY METHOD 03/30/2024 12:53 PM [facility] BUN 44(H) 5 - 25 mg/dL LAB CHEMISTRY METHOD 03/30/2024 12:53 PM [facility] Creatinine 1.34(H) 0.70 - 1.30 mg/dL LAB CHEMISTRY METHOD 03/30/2024 12:53 PM [facility] eGFR 56(L) >=60 mL/min/1. 73m2 LAB CHEMISTRY METHOD 03/30/2024 12:53 PM [facility] Comment:Calculation based on the??Chronic Kidney Disease Epidemiology Collaboration (CKD-EPI) equation refit??without adjustment for race. BUN/Creatinine Ratio 32.8 LAB CHEMISTRY METHOD 03/30/2024 12:53 PM [facility] Calcium 8.5 8.5 - 10.5 mg/dL LAB CHEMISTRY METHOD 03/30/2024 12:53 PM [facility] AST (SGOT) 17 10 - 42 unit/L LAB CHEMISTRY METHOD 03/30/2024 12:53 PM [facility] ALT (SGPT) 21 10 - 60 unit/L LAB CHEMISTRY METHOD 03/30/2024 12:53 PM [facility] Alkaline Phosphatase 59 42 - 121 unit/L LAB CHEMISTRY METHOD 03/30/2024 12:53 PM EST [facility] Total Protein 6.8 6.0 - 8.0 g/dL LAB CHEMISTRY METHOD 03/30/2024 12:53 PM EST [facility] Albumin 3.6 3.2 - 5.0 g/dL LAB CHEMISTRY METHOD 03/30/2024 12:53 PM EST [facility] Total Bilirubin 0.7 0.0 - 1.4 mg/dL LAB CHEMISTRY METHOD 03/30/2024 12:53 PM EST [facility] Blood Venous blood specimen / Unknown Venipuncture / Unknown 03/30/2024 5:38 AM EST 03/30/2024 11:09 AM EST Curt Brewster MD LAB BLOOD ORDERABLES Final Res ult [facility] [address] [place] [address], [place] [phone] from Last 3 Months Insurance MEDICAID - [place] [facility] MEDICARE ADVANTAGE Care Teams Compounding Technician Relationship Specialty Start Date End Date Trav Verdugo MD [address] [place] [address] [address] [place] [address] PCP - General Geriatric Medicine 04/03/24
--- OUTSIDE RECORDS SUMMARY | 2024-06-04 09:03 | XMS_ITS | Encounter Summary ---
[facility] Address [address] [place] [address] Care Team Providers Care Control Room Supervisor Name Role Phone Trav Verdugo MD Primary Care Provider [phone] Encounter Details Date Type Department Care Team (Late st Contact Info) Description 04/03/2024 Lab Requisition [facility] - Main Lab [address] [place] [address] Trav Verdugo MD [address] [place] [address] Chronic obstructive pulmonary disease, unspecified (CMS/HCC) Social [...] LAB CHEMISTRY METHOD 04/03/2024 12:56 PM EST [facility] Potassium 3.4(L) 3.5 - 5.5 mmol/L LAB CHEMISTRY METHOD 04/03/2024 12:56 PM EST [facility] Chloride 103 96 - 110 mmol/L LAB CHEMISTRY METHOD 04/03/2024 12:56 PM [facility] CO2 28 21 - 32 mmol/L LAB CHEMISTRY METHOD 04/03/2024 12:56 PM [facility] Anion Gap 7 3 - 11 LAB CHEMISTRY METHOD 04/03/2024 12:56 PM [facility] Glucose 87 70 - 100 mg/dL LAB CHEMISTRY METHOD 04/03/2024 12:56 PM [facility] BUN 17 5 - 25 mg/dL LAB CHEMISTRY METHOD 04/03/2024 12:56 PM [facility] Creatinine 0.65(L) 0.70 - 1.30 mg/dL LAB CHEMISTRY METHOD 04/03/2024 12:56 PM [facility] eGFR 99 >=60 mL/min/1. 73m2 LAB CHEMISTRY METHOD 04/03/2024 12:56 PM [facility] Comment:Calculation based on the??Chronic Kidney Disease Epidemiology Collaboration (CKD-EPI) equation refit??without adjustment for race. BUN/Creatinine Ratio 26.2 LAB CHEMISTRY METHOD 04/03/2024 12:56 PM [facility] Calcium 8.3(L) 8.5 - 10.5 mg/dL LAB CHEMISTRY METHOD 04/03/2024 12:56 PM [facility] Blood Venous blood specimen / Unknown Venipuncture / Unknown 04/03/2024 6:27 AM EST 04/03/2024 11:21 AM EST us Trav Verdugo MD LAB BLOOD ORDERABLES Final Resul t [facility] [address] [place] [address], * (ABNORMAL) Complete blood count (04/03/2024 6:27 AM EST) WBC 7.3 4.8 - 10.8 K/mcL LAB HEMETOLOGY METHOD 04/03/2024 11:45 AM [facility] RBC 3.50(L) 4.50 - 5.50 M/[facility] LAB HEMETOLOGY METHOD 04/03/2024 11:45 AM [facility] Hemoglobin 10.7(L) 13.5 - 17.5 g/dL LAB HEMETOLOGY METHOD 04/03/2024 11:45 AM [facility] Hematocrit 33.2(L) 42.0 - 54.0 % LAB HEMETOLOGY METHOD 04/03/2024 11:45 AM [facility] MCV 96.2 79.0 - 98.0 FL LAB HEMETOLOGY METHOD 04/03/2024 11:45 AM [facility] MCH 31.0 27.0 - 32.0 pcg LAB HEMETOLOGY METHOD 04/03/2024 11:45 AM [facility] MCHC 32.2 32.0 - 37.0 g/dL LAB HEMETOLOGY METHOD 04/03/2024 11:45 AM [facility] RDW 13.2 11.0 - 15.0 % LAB HEMETOLOGY METHOD 04/03/2024 11:45 AM [facility] Platelets 287 130 - 400 K/mcL LAB HEMETOLOGY METHOD 04/03/2024 11:45 AM [facility] MPV 11.4(H) 7.0 - 11.0 FL LAB HEMETOLOGY METHOD 04/03/2024 11:45 AM [facility] NRBC 0.0 <1.0 % LAB HEMETOLOGY METHOD 04/03/2024 11:45 AM [facility] NRBC Absolute 0.00 <0.10 K/mcL LAB HEMETOLOGY METHOD 04/03/2024 11:45 AM [facility] Blood Venous blood specimen / Unknown Venipuncture / Unknown 04/03/2024 6:27 AM EST 04/03/2024 11:21 AM EST Trav Verdugo MD LAB BLOOD ORDERABLES Final Resul t [facility] [address] [place] [address], documented in this encounter Visit Diagnoses Diagnosis Chronic obstructive pulmonary disease, unspecified (CMS/HCC) documented in this encounter Care Teams Control Room Supervisor Relationship Specialty Start Date End Date Trav Verdugo MD [address] [place] [address] [address] [place] [address] PCP - General Geriatric Medicine 04/03/24 documented as of this encounter
--- OUTSIDE RECORDS SUMMARY | 2024-06-04 09:04 | XMS_ITS | Encounter Summary ---
Author Organization [facility] Address [address] [place] [address] Care Team Providers Care Dump Attendant Name Role Phone Trav Verdugo MD Primary Care Provider [phone] Encounter Details Date Type Department Care Team (Late st Contact Info) Description 03/27/[address] [facility] - Main Lab [address] [facility] [place] [address] Curt Brewster MD [address] [place] [phone] Chronic kidney disease, unspecified Social History Tobacco [...] Thyroid stimulating hormone (03/30/2024 5:38 AM EST) [facility] TSH 0.64 0.40 - 4.00 mcIU/mL LAB CHEMISTRY METHOD 03/30/2024 12:33 PM EST [facility] Blood Venous blood specimen / Unknown Venipuncture / Unknown 03/30/2024 5:38 AM EST 03/30/2024 11:09 AM EST Curt Brewster MD LAB BLOOD ORDERABLES Final Res ult Performing Organization Address City/[facility]/ZIP Co de Phone Number [facility] [address] [place] [address], [place] [phone] * Hemoglobin A1c (03/30/2024 5:38 AM EST) [facility] Hemoglobin A1C 5.6 <6.5 % LAB CHEMISTRY METHOD 03/30/2024 1:51 PM EST [facility] Mean Bld Glu Estim. 114 mg/dL LAB CHEMISTRY METHOD 03/30/2024 1:51 PM EST [facility] Blood Venous blood specimen / Unknown Venipuncture / Unknown 03/30/2024 5:38 AM EST 03/30/2024 11:09 AM EST Curt Brewster MD LAB BLOOD ORDERABLES Final Res ult [facility] [address] [place] [address], [place] [phone] * (ABNORMAL) Vitamin B12 (03/30/2024 5:38 AM EST) [facility] Vitamin B-12 1,196(H) 250 - 900 pcg/mL LAB CHEMISTRY METHOD 03/30/2024 12:53 PM EST [facility] Blood Venous blood specimen / Unknown Venipuncture / Unknown 03/30/2024 5:38 AM EST 03/30/2024 11:09 AM EST Curt Brewster MD LAB BLOOD ORDERABLES Final Res ult Performing Organization Address City/[facility]/ZIP Co de Phone Number [facility] [address] [place] [address], [place] [phone] * Lipid panel with reflex to direct LDL (03/30/2024 5:38 AM EST) Cholesterol 147 0 - 200 mg/dL LAB CHEMISTRY METHOD 03/30/2024 12:53 PM [facility] Triglycerides 85 0 - 150 mg/dL LAB CHEMISTRY METHOD 03/30/2024 12:53 PM [facility] HDL 51 >=40 mg/dL LAB CHEMISTRY METHOD 03/30/2024 12:53 PM [facility] LDL Calculated 79 0 - 100 mg/dL LAB CHEMISTRY METHOD 03/30/2024 12:53 PM [facility] VLDL Cholesterol Fazal 17 mg/dL LAB CHEMISTRY METHOD 03/30/2024 12:53 PM [facility] Non HDL Chol. (LDL+VLDL) 96 <145 mg/dL LAB CHEMISTRY METHOD 03/30/2024 12:53 PM [facility] Chol/HDL Ratio 2.9 0.0 - 4.4 LAB CHEMISTRY METHOD 03/30/2024 12:53 PM [facility] Blood Venous blood specimen / Unknown Venipuncture / Unknown 03/30/2024 5:38 AM EST 03/30/2024 11:09 AM EST Curt Brewster MD LAB BLOOD ORDERABLES Final Res ult Performing Organization Address [facility]/ZIP Co de Phone Number [facility] [address] [place] [address], [place] [phone] * (ABNORMAL) Comprehensive metabolic panel (03/30/2024 5:38 AM EST) Sodium 139 133 - 145 mmol/L LAB CHEMISTRY METHOD 03/30/2024 12:53 PM [facility] Potassium 3.7 3.5 - 5.5 mmol/L LAB CHEMISTRY METHOD 03/30/2024 12:53 PM [facility] Chloride 105 96 - 110 mmol/L LAB CHEMISTRY METHOD 03/30/2024 12:53 PM [facility] CO2 25 21 - 32 mmol/L LAB CHEMISTRY METHOD 03/30/2024 12:53 PM [facility] Anion Gap 9 3 - 11 LAB CHEMISTRY METHOD 03/30/2024 12:53 PM [facility] Glucose 77 70 - 100 mg/dL LAB CHEMISTRY METHOD 03/30/2024 12:53 PM [facility] BUN 44(H) 5 - 25 mg/dL LAB CHEMISTRY METHOD 03/30/2024 12:53 PM [facility] Creatinine 1.34(H) 0.70 - 1.30 mg/dL LAB CHEMISTRY METHOD 03/30/2024 12:53 PM [facility] eGFR 56(L) >=60 mL/min/1. 73m2 LAB CHEMISTRY METHOD 03/30/2024 12:53 PM [facility] Comment:Calculation based on the??Chronic Kidney Disease Epidemiology Collaboration (CKD-EPI) equation refit??without adjustment for race. BUN/Creatinine Ratio 32.8 LAB CHEMISTRY METHOD 03/30/2024 12:53 PM [facility] Calcium 8.5 8.5 - 10.5 mg/dL LAB CHEMISTRY METHOD 03/30/2024 12:53 PM [facility] AST (SGOT) 17 10 - 42 unit/L LAB CHEMISTRY METHOD 03/30/2024 12:53 PM [facility] ALT (SGPT) 21 10 - 60 unit/L LAB CHEMISTRY METHOD 03/30/2024 12:53 PM [facility] Alkaline Phosphatase 59 42 - 121 unit/L LAB CHEMISTRY METHOD 03/30/2024 12:53 PM [facility] Total Protein 6.8 6.0 - 8.0 g/dL LAB CHEMISTRY METHOD 03/30/2024 12:53 PM [facility] Albumin 3.6 3.2 - 5.0 g/dL LAB CHEMISTRY METHOD 03/30/2024 12:53 PM [facility] Total Bilirubin 0.7 0.0 - 1.4 mg/dL LAB CHEMISTRY METHOD 03/30/2024 12:53 PM [facility] Blood Venous blood specimen / Unknown Venipuncture / Unknown 03/30/2024 5:38 AM EST 03/30/2024 11:09 AM EST us Curt Brewster MD LAB BLOOD ORDERABLES Final Res ult [facility] [address] [place] [address], [place] [phone] * (ABNORMAL) Complete blood count (03/30/2024 5:38 AM EST) WBC 13.6(H) 4.8 - 10.8 K/mcL LAB HEMETOLOGY METHOD 03/30/2024 12:26 PM [facility] RBC 4.30(L) 4.50 - 5.50 M/mcL LAB HEMETOLOGY METHOD 03/30/2024 12:26 PM [facility] Hemoglobin 13.3(L) 13.5 - 17.5 g/dL LAB HEMETOLOGY METHOD 03/30/2024 12:26 PM [facility] Hematocrit 41.8(L) 42.0 - 54.0 % LAB HEMETOLOGY METHOD 03/30/2024 12:26 PM [facility] MCV 97.2 79.0 - 98.0 FL LAB HEMETOLOGY METHOD 03/30/2024 12:26 PM [facility] MCH 30.9 27.0 - 32.0 pcg LAB HEMETOLOGY METHOD 03/30/2024 12:26 PM [facility] MCHC 31.8(L) 32.0 - 37.0 g/dL LAB HEMETOLOGY METHOD 03/30/2024 12:26 PM [facility] RDW 14.3 11.0 - 15.0 % LAB HEMETOLOGY METHOD 03/30/2024 12:26 PM [facility] Platelets 324 130 - 400 K/mcL LAB HEMETOLOGY METHOD 03/30/2024 12:26 PM [facility] MPV 11.5(H) 7.0 - 11.0 FL LAB HEMETOLOGY METHOD 03/30/2024 12:26 PM [facility] NRBC 0.0 <1.0 % LAB HEMETOLOGY METHOD 03/30/2024 12:26 PM [facility] NRBC Absolute 0.00 <0.10 K/mcL LAB HEMETOLOGY METHOD 03/30/2024 12:26 PM [facility] Blood Venous blood specimen / Unknown Venipuncture / Unknown 03/30/2024 5:38 AM EST 03/30/2024 11:09 AM EST us Curt Brewster MD LAB BLOOD ORDERABLES Final Res ult [facility] [address] [place] [address], documented in this encounter Visit Diagnoses Diagnosis Chronic kidney disease, unspecified documented in this encounter Care Teams Dump Attendant Relationship Specialty Start Date End Date Trav Verdugo MD [address] [place], [place] [id number] [place] [address] PCP - General Geriatric Medicine 04/03/24 documented as of this encounter
== END 2024-06-04 09:02 | disposition home or self-care (01) ==
LOC: HO.HGS 08:31
PROVIDERS: PCP Family Medicine Geriatric Medicine; Visit Provider Surgery
DX: T14.8XXA Other injury of unspecified body region, initial encounter (principal)
CPT/HCPCS: 99203

== ENCOUNTER → 2024-06-04 08:30 | Outpatient (BNVA) | payer MEDICARE, MEDICAID, SELFPAY | PROVIDERS: PCP Family Medicine Geriatric Medicine; Visit Provider Surgery | DX: S31.819A Unspecified open wound of right buttock, initial encounter (principal); X58.XXXA Exposure to other specified factors, initial encounter; Y93.9 Activity, unspecified; Y92.9 Unspecified place or not applicable; Y99.9 Unspecified external cause status | CPT/HCPCS: 99202 ==